=== PATIENT | female | born 1965 | race Caucasian/White ===

== ENCOUNTER 2018-12-12 04:22 | Emergency (ER) | payer MEDICARE, SELFPAY ==
[2018-12-12 04:23] VITALS: BP 97/68; PULSE 90; RESP 15; TEMP 37.2; O2SAT 94; BMI 26.5
--- NOTE | 2018-12-12 04:47 | ED.DCSUM_ITS ---
History of Present Illness Chief Complaint: Fever Informant: Patient Onset: Yesterday Context: Gradual Onset Timing: Continuous Current Severity: Moderate Maximum Severity: Moderate Narrative: The patient presents to the emergency department with fever. Patient has a history of renal cell carcinoma with diffuse metastasis. She follows with Dr. Koroma. She is on chemotherapy. Her last treatment was on Thursday. She states that yesterday evening, she began to have chills. She states shortly thereafter she developed a fever. She is on antibiotics for urinary tract infection. 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 She does self cath. She denies any recent change in the urine. She has not had cough. She just states that she is mostly had myalgias and arthralgias. Prior similar symptoms: Yes Recent Illness/Hospitalization: No Past Medical History - Allergies and Home Meds Allergies/Adverse Reactions: Allergies No Known Allergies Allergy (Verified 12/12/18 04:31) Primary Care Physician: Aaron Chand MD [Primary Care Provider] - Prior records reviewed: Yes Past Medical History: - - Renal cell carcinoma Smoking Status: Never smoker Review of Systems General: Reports: Chills, Fever, Malaise. Denies: Sweats Eyes: Denies: Visual changes - bilaterally, Diplopia ENT: Denies: Rhinorrhea, Sore throat Cardiovascular: Denies: Chest pain, Palpitations Respiratory: Denies: Dyspnea, Cough, Dyspnea on exertion Gastrointestinal: Denies: Abdominal pain, Nausea, Vomiting, Diarrhea, Melena, Hematochezia Genitourinary: Denies: Dysuria, Hematuria, Frequency Musculoskeletal: Reports: Myalgias, Arthralgias. Denies: Back pain, Extremity Pain Skin: Denies: Rash, Wounds Neurological: Denies: Headache, Weakness, Numbness Physical Exam Vital Signs/Narrative: Vital Signs Temp Pulse Resp BP Pulse Ox 12/12/18 04:23 99.0 F 90 15 97/68 94 Inital Vital Signs reviewed: Yes General: Well nourished, Well developed, No Acute Distress Head: Normocephalic, Atraumatic Eyes: Perrl, EOMI ENT: Moist mucous membranes, No rhinorrhea Neck: Supple, Nontender Cardiovascular: Regular rate, Regular rhythm, No murmurs Respiratory: No distress, CTA bilaterally, Chest nontender Abdomen: Soft, Nontender, Nondistended, Normal bowel sounds Back: Nontender, Normal Inspection Extremities: Nontender, No edema Skin: Normal color, No rash Neurological: Alert, Oriented x3, Cranial nerves II-XII grossly intact, Normal Strength, Normal Sensation Psychological: Normal affect, Normal Mood Diagnostic/Tx/Re-eval Chest X-Ray - ED: 1 View, Normal, Heart, Lungs, Mediastinum, Bony Structures, No Infiltrates Abnormal Lab Results 12/12/18 12/12/18 12/12/18 05:00 05:25 05:25 WBC 5.0 RBC 4.63 Hgb 12.3 Hct 39.6 MCV 85.5 MCH 26.6 L MCHC 31.1 L RDW Std Deviation 44.9 H RDW Coeff of Deborah 14.6 Plt Count 185 MPV 10.0 Immature Gran % (Auto) 0.600 Neut % (Auto) 82.8 H Lymph % (Auto) 9.0 L Curry % (Auto) 3.8 Eos % (Auto) 3.2 Baso % (Auto) 0.6 Absolute Neuts (auto) 4.1 Absolute Lymphs (auto) 0.45 L Nucleated RBC % 0 Sodium 137 Potassium 3.8 Chloride 101 Carbon Dioxide 26.0 Anion Gap 10 BUN 14 Creatinine 0.97 Estim Creat Clear Calc 58.97 Est GFR (MDRD) Af Amer 76 Est GFR (MDRD) Non-Af 63 BUN/Creatinine Ratio 14.4 Glucose 185 H Lactic Acid Calcium 8.8 Total Bilirubin 0.40 AST 23 ALT 24 Alkaline Phosphatase 89 Total Protein 6.7 Albumin 3.2 Globulin 3.5 Albumin/Globulin Ratio 0.9 Urine Color Yellow Urine Clarity Sl. Cloudy Urine pH 5.0 Ur Specific [place] 1.025 Urine Protein 30 H Urine Glucose (UA) Normal Urine Ketones 150 H Urine Occult Blood 25 H Urine Nitrite Positive H Urine Bilirubin Negative Urine Urobilinogen 1 H Ur Leukocyte Esterase 25 H Urine RBC 0 SEEN Urine WBC 0-5 SEEN Ur Squamous Epith Cells 0 SEEN Urine Bacteria 3+ Urine Mucus 1+ 12/12/18 05:25 WBC RBC Hgb Hct MCV MCH MCHC RDW Std Deviation RDW Coeff of Deborah Plt Count MPV Immature Gran % (Auto) Neut % (Auto) Lymph % (Auto) Curry % (Auto) Eos % (Auto) Baso % (Auto) Absolute Neuts (auto) Absolute Lymphs (auto) Nucleated RBC % Sodium Potassium Chloride Carbon Dioxide Anion Gap BUN Creatinine Estim Creat Clear Calc Est GFR (MDRD) Af Amer Est GFR (MDRD) Non-Af BUN/Creatinine Ratio Glucose Lactic Acid 1.2 Calcium Total Bilirubin AST ALT Alkaline Phosphatase Total Protein Albumin Globulin Albumin/Globulin Ratio Urine Color Urine Clarity Urine pH Ur Specific [place] Urine Protein Urine Glucose (UA) Urine Ketones Urine Occult Blood Urine Nitrite Urine Bilirubin Urine Urobilinogen Ur Leukocyte Esterase Urine RBC Urine WBC Ur Squamous Epith Cells Urine Bacteria Urine Mucus - Rhythm Strip Rhythm Strip: Sinus Rhythm Ectopy: None - Medical Decision Making The patient presents with fever and nausea. She is afebrile here, but did have reported fever at home. Metabolic work-up was pursued. Patient was given fluids. Screening labs showed no evidence of neutropenia. Lactic acid was normal. Electrolytes were unremarkable. Chest x-ray shows no evidence of focal infiltrative process. The patient's urine does seem to have evidence of infection. Is actually able to review her culture from [facility]. She did have ESBL that was sensitive to penicillin. She has been on Macrobid, but now that she has a fever and systemic symptoms I am concerned for early pyelonephritis. I had a long conversation with the patient. She wants to do outpatient therapy. As she is afebrile here and has a rather otherwise unremarkable work-up I do feel that this is reasonable. I did reculture her urine. She was given IV Zosyn. She will be started on Augmentin. She was counseled on concerning symptoms and reasons to return. She will be discharged home. Impression 1. Early pyelonephritis ED Disposition - Plan for ED Patient: Instructions: PYELONEPHRITIS, Female (Adult) Prescriptions: Amox/Clavulanate Tablet [Augmentin Tablet] 875 mg PO Q12H #20 tab Prescription Printed Referrals: Aaron Chand MD [Primary Care Provider] -
--- NOTE | 2018-12-12 05:00 | RAD_ITS ---
STUDY: X-RAY CHEST REASON FOR EXAM: Female, 53 years old. Fever. Indigestion. Fatigue. Patient received chemotherapy on Thursday. TECHNIQUE: Single AP portable view of the chest. COMPARISON: None. FINDINGS: There is a left subclavian Port-A-Cath with its tip overlying superior vena cava. There is elevation of the left hemidiaphragm with overlying left basilar atelectasis. There is minimal atelectasis in the right lower lung field as well. There are no demonstrated pulmonary infiltrates. There is no demonstrated pleural abnormality. Normal size heart. Normal mediastinum and john. Normal visualized pulmonary arteries. Normal visualized aortic arch and descending thoracic aorta. There are postsurgical changes in the thoracic spine. Normal visualized ribs, clavicles, and shoulders. There is no demonstrated abnormality of the visualized soft tissue structures of the upper abdomen. RAD/Chest 1 View (Portable) IMPRESSION: Atelectasis in the lower lung siddiqui. Port-A-Cath in position. No evidence for acute cardiopulmonary pathology. Electronically Signed: Yusuf Thomas MD at 5:35 EDT , Service support ,
[2018-12-12] MEDS: Ondansetron 4 MG/2 ML Vial IV (05:35)
[2018-12-12] MEDS: 0.9% Normal Saline 1,000 ML 1000 ML IV (05:36)
[2018-12-12 05:37] VITALS: BP 87/58; PULSE 69; RESP 15; O2SAT 96
[2018-12-12 06:06] LABS: Absolute Lymphocyte Count 0.45 X10^3/uL (0.83-4.51); Absolute Neutrophil Count 4.1 X10^3/uL (2.0-7.7); Basophil# 0.03 X10^3/uL; Basophil% 0.6 % (0-1); Differential Indicated SCAN CRITERIA MET; Eosinophil# 0.16 X10^3/uL; Eosinophils% 3.2 % (0-5); Hematocrit 39.6 % (37-47); Hemoglobin 12.3 g/dL (12.0-15.0); Lymphocyte # 0.45 X10^3/ul (4.0); Mean Corp Hgb Conc 31.1 g/dL (32-36); Mean Corpuscular Hgb 26.6 pg (27.0-32.0); Mean Corpuscular Volume 85.5 fL (81-99); Monocyte# 0.19 X10^3/uL; Monocyte% 3.8 % (0-10); NRBC Flagged by Analyzer 0 % (0-5); Neutrophil # 4.13 X10^3/uL (2.7-7.7); Neutrophil % 82.8 % (47-70); POSITIVE DIFFERENTIAL YES; Platelet Count 185 K/mm3 (150-450); RBC Distribution Width CV 14.6 % (11.6-14.6); RBC Distribution Width SD 44.9 fl (35.1-43.9); Red Blood Count 4.63 M/mm3 (4.2-5.4)
[2018-12-12 06:07] LABS: Color, Urine Yellow (Yellow); Glucose, Dipstick Normal (Normal); Leukocyte Esterase-Dipstick 25 /ul (Negative); Nitrite-Dipstick Positive (Negative); Occult Blood-Urine 25 /ul (Negative); Protein-Dipstick 30 mg/dl (Negative); Specific Gravity, Urine 1.025 (1.002-1.030); Urine Bilirubin Dipstick Negative (Negative); Urine Clarity Sl. Cloudy (Clear); Urine Urobilinogen 1 mg/dl (Normal)
[2018-12-12 06:10] LABS: Ketone-Dipstick 150 mg/dl (Negative)
[2018-12-12 06:13] LABS: Lactic Acid 1.2 mmol/L (0.4-2.0)
[2018-12-12 06:13] LABS: Red Blood Cells-Urine 0 SEEN /hpf (0-5); Squamous Epithelial Cells - UA 0 SEEN /hpf (5-10)
[2018-12-12 06:14] LABS: Bacteria 3+ /hpf (None Seen); Mucous, Urine 1+ /hpf (<or=2+)
[2018-12-12 06:17] LABS: White Blood Cells 0-5 SEEN /hpf (0-5)
[2018-12-12] MEDS: 0.9% Normal Saline 1,000 ML 999 ML IV (06:17)
[2018-12-12 06:18] VITALS: BP 88/52; PULSE 75; RESP 15; O2SAT 100
--- NOTE | 2018-12-12 06:28 | ED.RN ---
lab called with critical lab results. urine ketones 150. Dr. franco made aware no new orders at this time
[2018-12-12 06:37] LABS: ALB/GLOB Ratio 0.9 RATIO (0.9-2.4); AST(SGOT) 23 U/L (15-37); Alanine Aminotransfer ALT/SGPT 24 U/L (13-56); Albumin, Serum 3.2 g/dL (3.2-5.0); Alkaline Phosphatase 89 U/L (45-117); BUN 14 mg/dL (7-18); Calcium,Total 8.8 mg/dL (8.5-10.1); Creatinine, Serum 0.97 mg/dL (0.55-1.02); Estimated Creatinine Clearance 58.97 ml/min; Globulin 3.5 g/dL (2.2-4.2); Glucose 185 mg/dL (74-106); Protein, Total 6.7 g/dL (6.4-8.2); Sodium Level 137 mmol/L (136-145)
[2018-12-12 06:38] LABS: Anion Gap 10 (5-15); Chloride 101 mmol/L (98-107); Potassium 3.8 mmol/L (3.5-5.1)
[2018-12-12 08:13] VITALS: BP 140/90; PULSE 100; RESP 22; O2SAT 97
[2018-12-12 11:27] LABS: BUN/Creat Ratio 14.5 RATIO (10-20); EST Glomerular Filtration Rate 64 mL/min (>60); Est Glom Filt Rate - Afr Amer 77 mL/min (>60)
== END 2018-12-12 08:14 | disposition home or self-care (01) ==
PROVIDERS: Emergency Provider Emergency Medicine; Family Provider Family Medicine; PCP Family Medicine
DX: N12 Tubulo-interstitial nephritis, not specified as acute or chronic (principal); C64.9 Malignant neoplasm of unspecified kidney, except renal pelvis; C79.9 Secondary malignant neoplasm of unspecified site; Z79.2 Long term (current) use of antibiotics
CPT/HCPCS: 71045; 80053; 81001; 83605; 85025; 87040; 87077; 87086; 87088; 87186; 96361; 96365; 96375; 99284; J7030; J7040; A4216; J2405

== ENCOUNTER 2019-01-28 20:50 | Inpatient (IN) | payer MEDICARE, SELFPAY ==
[2019-01-28] VITALS (10 sets, daily range): BP systolic 56–111; BP diastolic 36–88; PULSE 74–131; RESP 14–24; TEMP 36.1–37.4; O2SAT 95–100; BMI 24.0
--- NOTE | 2019-01-28 21:13 | EKG12_ITS ---
Test Reason : DYSRHYTHMIA Blood Pressure : / mmHG Vent. Rate : 118 BPM Atrial Rate : 118 BPM P-R Int : 122 ms QRS Dur : 082 ms QT Int : 284 ms P-R-T Axes : 059 -51 071 degrees QTc Int : 398 ms Sinus tachycardia Left anterior fascicular block Septal infarct , age undetermined Abnormal ECG Confirmed by COLETTE ROWLAND, VALENTINA ([id number]), assignment editor YESI GONZALEZ ([id number]) on 01/31/2019 9:47:06 AM Referred By: Confirmed By:VALENTINA ALVARENGA MD
--- NOTE | 2019-01-28 21:15 | RAD_ITS ---
STUDY: X-RAY CHEST REASON FOR EXAM: Female, 53 years old. UTI. Short of breath. TECHNIQUE: Single AP portable view of the chest. COMPARISON: 12/12/2018. FINDINGS: Left Mediport catheter terminates near the cavoatrial junction. Elevated left hemidiaphragm, less so than on the prior study. Platelike atelectasis and/or scarring across both lower lobes worse on the left. These findings are mostly normal. Normal size heart. Normal mediastinum and john. Normal visualized pulmonary arteries. Normal visualized aortic arch and descending thoracic aorta. Stable post surgical fusion intrapedicular screws and rods across most of the thoracic spine. There is no demonstrated abnormality of the visualized soft tissue structures of the upper abdomen. RAD/Chest 1 View (Portable) IMPRESSION: Little if any significant change. Atelectasis or scarring in both lower lobes worse on the left. Electronically Signed: Bang Wyatt MD at 21:34 EST , Service support ,
--- NOTE | 2019-01-28 21:18 | ED.DCSUM_ITS ---
- ER Visit Summary Date of Service: 01/28/19 Chief Complaint: Fever, nausea History of Present Illness: The patient is a 53 F presenting with fever, nausea. She began not feeling well 4 days ago. She was seen by her primary care physician yesterday and diagnosed with UTI. She was given Diflucan for yeast infection as well as Augmentin. She has a history of renal cell carcinoma. She is paraplegic and straight caths for urine. Her last chemotherapy was yesterday. states her temperature was up to 104 at home. She was given ibuprofen and they were able to get her temperature down. She denies chest pain. She complains of shortness of breath, nausea, vomiting. Physical Examination: Blood pressure 63/40. Heart rate 131, respiratory rate 24. Patient is afebrile. Alert moderate acute distress. HEENT exam dry mucous membranes Neck is supple. No meningismus Lungs are clear and equal bilaterally. Heart is regular and tachycardic Abdomen is soft nontender nondistended. Extremities are unremarkable. Skin is warm and dry. No rash Remainder of exam is unremarkable. Emergency Department Course and Treatment: Patient was given IV fluids, Zofran. Blood and urine cultures were sent. EKG is sinus tachycardia rate of 118, ST elevation V2, no reciprocal changes. Chest x-ray shows atelectasis. CBC shows white count 14.7. Chemistries show potassium 3.0, glucose 135, BUN 26, creatinine 1.53. Alk phos 124. AST 150. INR 1.4. Lactic acid 4.2. Troponin 22.9. Influenza negative. Patient was given 30 cc/kg bolus of IV fluids. She continues to be hypotensive and Levophed was started. She was given Zosyn, vancomycin IV. Discussed with Dr. Bedolla. Recommends heparin drip, aspirin, CTA chest to rule out PE. Patient was started on heparin drip. She continues to be hypotensive. Discussed with Dr. Killian. Patient was started on vasopressin. She will be given Solu-Cortef. CTA chest shows positive for pulmonary emboli on the right descending pulmonary artery into the right middle lobe. Atelectasis and/or infiltrate in both lower lobes worse on the left. Blount catheter was placed and patient has not made any urine in the emergency department. IV fluids are continued. Discussed with Dr. Valiente. Discussed with the hospitalist for admission. is at bedside and is aware of her critical status. She is full code at this time. Patient is awake and alert and is responding appropriately to questions. She will be admitted to the ICU. Disposition: Admission Impression: Septic shock, pulmonary embolism, history of renal cell carcinoma This note was generated with [employer] dictation software. It may contain incorrect words, spelling, and punctuation that were not noted in review of the chart prior to signing ED Disposition - Plan for ED Patient:
[2019-01-28] MEDS: 0.9% Normal Saline 1,000 ML 999 ML IV ×3 (21:42→22:20)
[2019-01-28] MEDS: Ondansetron 4 MG/2 ML Vial IV (21:50)
[2019-01-28 21:52] LABS: Absolute Lymphocyte Count 0.24 X10^3/uL (0.83-4.51); Absolute Neutrophil Count 14.1 X10^3/uL (2.0-7.7); Basophil# 0.05 X10^3/uL; Basophil% 0.3 % (0-1); Eosinophil# 0.12 X10^3/uL; Eosinophils% 0.8 % (0-5); Hematocrit 45.4 % (37-47); Lymphocyte # 0.24 X10^3/ul (4.0); Lymphocyte % 1.6 % (19-41); Mean Corp Hgb Conc 30.8 g/dL (32-36); Mean Corpuscular Hgb 25.4 pg (27.0-32.0); Mean Corpuscular Volume 82.2 fL (81-99); Mean Platelet Vol. 10.3 fl (6.2-12.0); Monocyte# 0.05 X10^3/uL; Monocyte% 0.3 % (0-10); NRBC Flagged by Analyzer 0 % (0-5); Neutrophil # 14.11 X10^3/uL (2.7-7.7); Neutrophil % 96.4 % (47-70); POSITIVE DIFFERENTIAL YES; POSITIVE MORPHOLOGY YES; Platelet Count 170 K/mm3 (150-450); RBC Distribution Width CV 17.2 % (11.6-14.6); RBC Distribution Width SD 50.4 fl (35.1-43.9); Red Blood Count 5.52 M/mm3 (4.2-5.4); White Blood Count 14.7 K/mm3 (4.4-11.0)
[2019-01-28 22:03] LABS: Differential Indicated SCAN CRITERIA MET
[2019-01-28 22:05] LABS: International Normalized Ratio 1.4; Prothrombin Time (Protime)PT. 16.5 SECONDS (11.7-14.9)
[2019-01-28 22:06] LABS: Partial Thromboplast Time 44.7 Seconds (24.1-36.2)
[2019-01-28 22:15] LABS: ALB/GLOB Ratio 0.8 RATIO (0.9-2.4); AST(SGOT) 150 U/L (15-37); Alanine Aminotransfer ALT/SGPT 52 U/L (13-56); Albumin, Serum 2.7 g/dL (3.2-5.0); Alkaline Phosphatase 124 U/L (45-117); Anion Gap 13 (5-15); BUN 26 mg/dL (7-18); Calcium,Total 8.7 mg/dL (8.5-10.1); Chloride 107 mmol/L (98-107); Creatinine, Serum 1.53 mg/dL (0.55-1.02); EST Glomerular Filtration Rate 37 mL/min (>60); Est Glom Filt Rate - Afr Amer 45 mL/min (>60); Estimated Creatinine Clearance 38.89 ml/min; Globulin 3.4 g/dL (2.2-4.2); Glucose 135 mg/dL (74-106); Protein, Total 6.1 g/dL (6.4-8.2); Sodium Level 141 mmol/L (136-145)
[2019-01-28 22:19] LABS: Lactic Acid 4.2 mmol/L (0.4-2.0)
[2019-01-28 22:21] LABS: Differential Comment SCANNED
--- NOTE | 2019-01-28 22:36 | CT_ITS ---
STUDY: CTA CHEST REASON FOR EXAM: Female, 53 years old. Short of breath. Metastatic kidney cancer. RADIATION DOSAGE (If Supplied By Facility): CTDIvol = ( 12.86 ) mGy, DLP = ( 440.27 ) mGycm TECHNIQUE: The examination was performed with the intravenous administration of IV Isovue 370 75ml. Post-processing of the angiographic images was performed, with multiplanar reformation and 3D reconstruction. Individualized dose optimization techniques were used for this CT. COMPARISON: None. FINDINGS: Normal enhancement of the main pulmonary artery and right and left pulmonary arteries. Intraluminal thrombus is seen in the right descending pulmonary artery, images 108-124. Small thrombus seen in the arteries to the right middle lobe, axial image 104. No definite pulmonary emboli on the left. Normal thoracic aorta and visualized great vessels. There is no demonstrated aortic dissection. Normal heart and pericardium. No gross right heart strain. No shift of the mediastinum. Normal mediastinum. Normal hilar regions. Normal visualized trachea and bronchi. The lungs are hyper expanded, with flattening of the hemidiaphragms. Moderate elevation of left hemidiaphragm. Atelectasis or infiltrate in both posterior lower lobes worse on the left. Smaller amount of atelectasis or infiltrate in the lingula. Small effusions. Extensive postsurgical changes of the spine with numerous interpedicular screws and posterior rods. Complete destruction of the T9 vertebral body and 1.4 cm anterolisthesis of T8 on T10. Normal visualized upper abdomen. CT/CTA Chest W/WO Contrast IMPRESSION: Positive for pulmonary emboli on the right descending pulmonary artery into the right middle lobe. Atelectasis and/or infiltrate in both lower lobes worse on the left. N.B. : The above information has been verbally conveyed by Bang Wyatt MD to Dana Ratliff MD, on 01/28/2019 23:44:23 (ET). Electronically Signed: Bang Wyatt MD at 23:45 EST , Service support ,
--- NOTE | 2019-01-28 22:45 | PCM.HP.STD ---
Problem List (1) Septic shock Status: Acute (2) UTI (urinary tract infection) Status: Acute Qualifiers: Urinary tract infection type: site unspecified Hematuria presence: without hematuria Qualified Code(s): N39.0 - Urinary tract infection, site not specified (3) Pneumonia Status: Acute Qualifiers: Pneumonia type: due to unspecified organism Laterality: bilateral Lung location: unspecified part of lung Qualified Code(s): J18.9 - Pneumonia, unspecified organism (4) KELLEE (acute kidney injury) Status: Acute (5) Hypokalemia Status: Acute (6) Encephalopathy acute Status: Acute (7) Renal carcinoma Status: Chronic Qualifiers: Laterality: right Qualified Code(s): C64.1 - Malignant neoplasm of right kidney, except renal pelvis (8) Chronic pain syndrome Status: Chronic History of Present Illness Date of Admission: 01/28/19 Chief Complaint: Recent UTI, Dyspnea, Nausea The patient is a 53 y/o F w/ PMHx: Renal Cell Carcinoma ongoing chemotherapy last the day prior to current presentation, Chronic Neurogenic Bladder with self catheterization program with paraplegia following lesion into her spine, Chronic Pain Syndrome who presents to the [facility] ED on 01/28/19 with history of onset of fatigue, malaise, nausea with emesis with fevers and chills initially starting 4 days prior with PCP evaluation today prior to current presentation with diagnosis of UTI at that time with initiation of Diflucan and Augmentin with sudden extreme decline over the last 1-2 hours per spouse report, noted to be febrile to 104 which decreased with IBU and onset lethargy. Per discussion with spouse patient self catheterizes from 3-6 times per day and notes that she does feel bladder spasms when her bladder is full. Work-up in the ED included T 99.3, heart rate 77, BP initially 56/36 with repeat 70/53, respiratory rate 14, 99% on 2 L nasal cannula, CBC with W BC 14.7, heme globin 14, platelet 170 with notable left shift, coags with PT 16.5, INR 1.4, PTT 44.7, CMP with potassium 3, BUN/creatinine 26/1.53, glucose 135, lactic acid 4.2, AST/ALT 150/52, alk phos 124, troponin 22.9, rapid influenza pending, blood culture x2 pending per ED, chest x-ray with atelectasis and/or scarring bilateral lower lobes, left greater than right, EKG with ST w/ mild elevation V2. In the ED patient initiated on heparin drip with bolus, norepinephrine as well as vasopressin initiated, Zosyn, vancomycin as well as normal saline in addition to fentanyl administered. CTPA preliminary evaluation concerning for small BL PE and ? PNA versus scarring. Additionally given CTPA findings per review again with Cardiology, decision to attempt to administer Brillinta load given improving mental status in the ED. Past Medical History Past Medical History (Chronic Problems): Chronic Problems Renal carcinoma (Chronic) Chronic pain syndrome (Chronic) Allergies No Known Allergies Allergy (Verified 01/28/19 20:53) Home Medications: Ambulatory Orders Medication Instructions Recorded Amox/Clavulanate Tablet [Augmentin 875 mg PO Q12H #20 tab 12/12/18 Tablet] Baclofen [Lioresal] 5 mg PO TID 12/12/18 Furosemide [Lasix] 20 mg PO PRN PRN 12/12/18 Gabapentin [Neurontin] 600 mg PO Q8H 12/12/18 Ondansetron [Zofran] 8 mg PO Q8H PRN PRN 12/12/18 Oxycodone Myristate [Xtampza ER] 18 mg PO Q12H 12/12/18 Prednisone 5 mg PO DAILY 12/12/18 Temazepam [Restoril] 30 mg PO QHS 12/12/18 Tizanidine HCl [Zanaflex] 4 mg PO Q8H PRN 12/12/18 Surgical History: - - Neck surgery with hardware, lumbar surgery with hardware with corrective follow-up surgery, left lower extremity femur surgery with hardware placement secondary to cancerous lesions, cholecystectomy, tonsillectomy, port placement. Psychiatric History: No pertinent psych hx [employer]ERILE TECH History: No pertinent [employer]ERILE TECH history Lives: Spouse/ Significant Other - Patient lives with her , has caregivers coming in. Smoking Status: Never smoker Tobacco Use: Non-smoker Alcohol: None Drugs: None - *Family History Maternal History Items: - - Patient with maternal family history of lung cancer, tobacco use history. Paternal History Items: - - Patient with a paternal family history of lung cancer, tobacco use history concurrently. Review of Systems Constitutional: Reports: Anorexia, Chills, Fever, Malaise, Weakness, Fatigue. Denies: Weight Change HEENT: Denies: Head Aches, Sinus Congestion, Sinus Drainage Cardiovascular: Denies: Chest Pain, Palpitations Respiratory: Reports: Shortness of Breath. Denies: Cough, Shortness of breath at rest, Shortness of breath upon exertion, Sputum production, Wheezing Gastrointestinal: Reports: Abdominal Pain, Nausea, Vomiting Genitourinary: Reports: - - Genic bladder, required self-catheterization, decreased urine output and bladder spasms noted.. Denies: Dysuria Musculoskeletal: Reports: Back Pain, Joint Pain. Denies: Joint Tenderness Skin: Denies: Rash, Wounds Neurological: Reports: Confusion, Focal weakness, Numbness, Tingling Psychiatric: Denies: Anxiety, Depression, Homicidal Ideations, Suicidal Ideations Hematologic/ Lymphatic: Denies: Easy Bruising, Easy Bleeding VTE Information - Inpt Only VTE Present on Admission: No VTE Mechan Device Prophylaxis: SCD's VTE Pharm Prophylaxis ordered?: Yes Patient Problems: Active and Suspected Problems Septic shock (Acute) UTI (urinary tract infection) (Acute) Pneumonia (Acute) KELLEE (acute kidney injury) (Acute) Hypokalemia (Acute) Encephalopathy acute (Acute) Subjective: Laying in the ED bed, very fatigued and lethargic but awakening easier now, answering some orientation questions appropriately, ill-appearing. Objective: Physical Examination: General: Now awakening to stimuli, increasingly more alert, now oriented to self, place and year but slow to answer, remains cooperative, laying in the ED bed, ill appearing. Skin: normal color, turgor, no icterus, cyanosis. HEENT: AT/NC, EOMI, PERRLA, dry MM, no carotid bruits or JVD noted. Lungs: Diminished BS BL, > bases, no obvious rales, ronchi or wheezing. Heart: Tachycardic with regular rhythm; no gallop, rub audible. Abdomen: soft, NTTP, ND, hypoactive BS, no HSM. Extremities: no cyanosis, clubbing, or edema, chronic paraplegia, peripheral pulses intact. Neurological: Now awakening to stimuli, increasingly more alert, now oriented to self, place and year but slow to answer, remains cooperative; cognitive function not baseline intact; pupils equally reactive to light and accomodation; cranial nerves II-XII grossly normal although give acute presentation difficult examination with lethargy, chronic paraplegia, strength severely globally decreased given underlying co-morbidities and acute presentation. Psychiatric: affect appears flat, lethargic, ill, no acute evidence of depressive or anxiety feelings. - Physical Exam Vitals/I&O's: Vital Signs Temp Pulse Resp BP Pulse Ox 99.3 F H 77 14 65/45 L 99 01/28/19 22:09 01/28/19 22:37 01/28/19 22:37 01/28/19 22:37 01/28/19 22:37 Oxygen Flow Rate (L/min) 2 Oxygen Delivery Method Nasal Cannula Weight: 149 lb Body Mass Index (BMI) 24.0 Intake and Output for Last 24 Hours 01/26/19 01/27/19 01/28/19 23:59 23:59 23:59 Intake Total 2503.84 / 2503.84 Balance 2503.84 / 2503.84 Laboratory Results 01/28/19 21:35: WBC 14.7 H, RBC 5.52 H, Hgb 14.0, Hct 45.4, MCV 82.2, MCH 25.4 L, MCHC 30.8 L, RDW Std Deviation 50.4 H, RDW Coeff of Deborah 17.2 H, Plt Count 170, MPV 10.3, Immature Gran % (Auto) 0.600, Neut % (Auto) 96.4 H, Lymph % (Auto) 1.6 L, Banks % (Auto) 0.3, Eos % (Auto) 0.8, Baso % (Auto) 0.3, Absolute Neuts (auto) 14.1 H, Absolute Lymphs (auto) 0.24 L, Nucleated RBC % 0, Differential Comment SCANNED 01/28/19 21:35: PT 16.5 H, INR 1.4, APTT 44.7 H 01/28/19 21:35: Sodium 141, Potassium 3.0 L, Chloride 107, Carbon Dioxide 21.0, Anion Gap 13, BUN 26 H, Creatinine 1.53 H, Estim Creat Clear Calc 38.89, Est GFR (MDRD) Af Amer 45 L, Est GFR (MDRD) Non-Af 37 L, BUN/Creatinine Ratio 17.0, Glucose 135 H, Calcium 8.7, Total Bilirubin 0.70, AST 150 H, ALT 52, Alkaline Phosphatase 124 H, Troponin I 22.900 H*, Total Protein 6.1 L, Albumin 2.7 L, Globulin 3.4, Albumin/Globulin Ratio 0.8 L 01/28/19 21:35: Lactic Acid 4.2 H* Current Medications Heparin Sodium (Porcine) (Heparin Na) 4,500 unit IV BOLUS ONE Stop: 01/28/19 22:46 Heparin Sodium (Porcine) (Heparin Na) 0 unit IV UD PRN; Protocol Sodium Chloride () 1,000 mls @ 999 mls/hr IV .Q1H1M ERNESTO; Protocol Stop: 01/28/19 23:45 Last Infusion: 01/28/19 22:30 Dose: Infused Documented by: Norepinephrine Bitartrate 8 mg (/ Sodium Chloride) 250 mls @ 9.375 mls/hr CONT INF .[id number] [facility]; Protocol Last Titration: 01/28/19 22:37 Dose: 10 mcg/min, 18.8 mls/hr Documented by: Heparin Sodium/Dextrose () 25,000 units in 250 mls @ 10 mls/hr IV .Q25H ERNESTO; Protocol Assessment/Plan All Active Problems Septic shock (Acute) UTI (urinary tract infection) (Acute) Pneumonia (Acute) KELLEE (acute kidney injury) (Acute) Hypokalemia (Acute) Encephalopathy acute (Acute) The patient is a 53 y/o F w/ PMHx: Renal Cell Carcinoma ongoing chemotherapy last the day prior to current presentation, Chronic Neurogenic Bladder with self catheterization program with paraplegia following lesion into her spine, Chronic Pain Syndrome who presents to the [facility] ED on 01/28/19 with history of onset of fatigue, malaise, nausea with emesis with fevers and chills initially starting 4 days prior with PCP evaluation today prior to current presentation with diagnosis of UTI at that time with initiation of Diflucan and Augmentin with sudden extreme decline over the last 1-2 hours per spouse report. 1. Acute Septic Shock secondary to Presumed Acute Complicated UTI (Unable to obtain urine, oliguric in the ED) with Neurogenic bladder and routine self catheterization and concurrent Possible BL Pneumonia versus Scarring: Evidence of sepsis-induced organ dysfunction/tissue hypoperfusion and sepsis induced hypotension despite adequate fluid administration as evidenced by elevated WBC, LA, hypotensive despite appropriate IVF administration. Will admit patient to the ICU, maintain on cardiac monitoring, continue to maintain on cardiac monitoring, continue BSA with vanc and zosyn, continue pressor therapies including now norepinephrine and vasopressin, initiate stress dose Cortef 50 mg IV every 6, continue IVFs, maintain richardson catheter, trend LA, awaiting UA/UCx upon requested evaluation of patient, will obtain sputum culture, urine antigens and respiratory viral panel given preliminary review of CTPA with concern for also concurrent bilateral pneumonia, Bld Cx x 2 obtained per ED upon presentation. Will plan re-assessment of patient and volume status as well as tissue perfusion within 6 hours of initial severe sepsis and/or septic shock presentation. ICU physician consulted, pending. Record request to primary care office for recent urinalysis and urine culture given currently patient not making urine and have not been able to obtain sample upon admission. 2. Acute NSTEMI (strain) secondary to Suspected Acute Pulmonary Embolism: CTPA performed and preliminary review with concern for pulmonary embolism as well as bilateral pneumonia but final read per radiology pending, EKG in ED w/ sinus tachycardia with elevations in V2, CXR w/ no acute cardiopulmonary findings, scarring noted at bases. Trop elevated, 22.9. Will maintain on a monitored bed, continue serial cardiac enzymes and EKGs. Continue medical management w/ LA aspirin, hold on statin oral regimen given lethargic presentation, obtain FLP in a.m., magnesium pending, ECHO requested. Cardiology consulted, Dr. Bedolla and aware of admission with planned continuation of heparin drip with prelim CTPA results with small bilateral PEs but no obvious evidence of strain although echo is pending as noted therefore plan to load of Brilinta in the ED given mental status is improving. ASA, NG, morphine. 3. Acute kidney injury: Secondary to acute presentation #1, #2. Admission BUN/Cr 26/1.53, prior baseline creatinine noted to be 0.9. Will hydrate, hold nephrotoxic medications and repeat chemistry in AM. Will obtain renal US and FeNa assessment. 4. Encephalopathy, acute, infectious, metabolic: Secondary to acute presentation as noted #1, #2, #3, continue treatments as noted, improving even while in the emergency room, fall and aspiration precautions. Will maintain n.p.o. status and administer medications LA as needed but as continues to clinically improve will transition to oral as able. 5. Hypokalemia: Admission K+ 2.0, supplementation given, repeat level in AM, magnesium pending. 6. Renal Cell Carcinoma, metastatic including to spine with resulting neurogenic bladder and paraplegia: Patient ongoing chemotherapy, last the day prior to current presentation, mag and phos requested, Dr. Valiente aware of admission and will evaluation. Maintain on fall precautions, frequent offloading with positional changes, maintain Richardson catheter, PT/OT/ST evaluations, case management concurrently consulted. Given notable lethargy upon presentation temporarily holding baclofen, Neurontin, long-acting oxycodone as well as Zanaflex, may resume once clinically appropriate to avoid withdrawal. 7. Chronic pain syndrome: Patient hypotensive is noted requiring pressor therapy x2, lethargic, holding oral regimen, may resume once clinically appropriate to avoid withdrawal. Will have PRN IV fentanyl. 8. DVT prophylaxis: SCDs, heparin drip as noted. 9. CODE status: Given that patient is lethargic and fatigued discussed with her current situation. Patient does not have healthcare power of collections attorney nor living will set up. Discussed CODE status at length with including difference between FULL code, DNR-CCA and DNR-CC status. Following discussions about the differences in these status, requested attenuation of full code status. Did impress upon patient severity of situation giving patient septic shock status requiring 2 pressor therapies, awaiting CTPA as noted above. Recommended that remain in the hospital given patient status tenuous. Advanced Care Planning Face to Face Time: 16 minutes. Code Visit Inpatient E&M: 32129 Init Hosp L3 Procedures: 72342 Advncd Care Plan 30 Min
[2019-01-28] MEDS: HEPARIN/D5w 25,000 UNITS 25,000 UNITS/250 ML IV.SOLN. 10 UNITS IV (22:49)
[2019-01-28] MEDS: Heparin Injection (Vial) 5,000 UNIT/ML VIAL 4500 UNIT IV (22:49)
[2019-01-28] MEDS: Vancomycin IV 1,000 MG/200 ML BAG 200 MG IV (23:48)
[2019-01-29] VITALS (50 sets, daily range): BP systolic 61–115; BP diastolic 50–86; PULSE 59–90; RESP 14–21; TEMP 36.7–37.2; O2SAT 93–100; BMI 25.2; BMI 25.3
[2019-01-29] MEDS: TICAGRELOR 90 MG TABLET 180 MG PO (00:14)
[2019-01-29] MEDS: Aspirin 325 MG Tablet PO (00:14)
--- NOTE | 2019-01-29 00:52 | ECHOCS_ITS ---
Reason For Study: CAD/ASHD Procedure This was a 2D Doppler, Color Flow transthoracic echocardiogram. Myocardial strain analysis was performed in this exam to aid in the assessment of cardiac function. Contrast injection was performed. Exam performed portable in ICU/CCU. Left Ventricle Normal LV size. The estimated ejection fraction is 15 %. Severe segmental systolic dysfunction (see wall motion). Stage 1 diastolic dysfunction. Becker : Akinetic. Mid-Lateral : Hypokinetic. Posterior- Basal: Normal. Lateral-Basal: Normal. Infero-Basal: Normal. The rest of the wall segments are hypokinetic. Atria Normal left atrium. Normal right atrium. Mitral Valve Normal mitral valve. Tricuspid Valve Normal tricuspid valve. Mild (1+) tricuspid valve insufficiency. Pulmonary artery systolic pressure is 32 mmHg. Aortic Valve Normal aortic valve. Trisinus/trileaflet aortic valve. Pulmonic Valve Normal pulmonic valve. Great Vessels Normal aortic root. The pulmonary artery is normal size. Normal inferior vena cava. Pericardium/Pleural No pericardial effusion. Medication Diluted definity 3ml given slow IV push to enhance endocardial definition. MMode/2D Measurements & Calculations LVIDd: 3.8 cm IVSd: 1.2 cm Ao root diam: 2.5 cm LVIDs: 3.3 cm LVPWd: 0.93 cm RVDd: 3.4 cm FS: 14.9 % LAV(MOD-bp): 24.1 ml LVAd ap4: 29.2 cm2 SV(MOD-sp4): 24.3 ml LAV(MOD-bp) Indexed: 13.7 ml/m2 EDV(MOD-sp4): 93.2 ml LAV(MOD-sp2): 22.4 ml EDV(sp4-el): 97.7 ml LAV(MOD-sp4): 23.9 ml LVAs ap4: 23.8 cm2 ESV(MOD-sp4): 68.9 ml ESV(sp4-el): 70.9 ml EF(MOD-sp4): 26.0 % EF(sp4-el): 27.4 % SV(sp4-el): 26.8 ml LA A4 area: 12.1 cm2 LA dimension(2D): 2.2 cm RA A4 area: 9.6 cm2 Doppler Measurements & Calculations MV E max alek: 28.3 cm/sec Lat Peak E' Alek: 3.6 cm/sec Med Peak E' Alek: 3.5 cm/sec MV A max alek: 64.2 cm/sec E/E' lat: 7.8 E/E' med: 8.0 MV E/A: 0.44 Ao V2 max: 90.2 cm/sec LV V1 max: 73.6 cm/sec PA V2 max: 49.2 cm/sec Ao max P.3 mmHg LV V1 max P.2 mmHg Ao V2 mean: 69.3 cm/sec Ao mean P.1 mmHg Ao V2 VTI: 16.1 cm TR max alek: 262.5 cm/sec TR max P.6 mmHg Interpretation Summary Normal LV size. The estimated ejection fraction is 15 %. Severe segmental systolic dysfunction (see wall motion). Stage 1 diastolic dysfunction. The global longitudinal strain = -8.4% (abnormal). Contrast injection was performed. Ordering Physician: Marily Cagle Referring Physician: Aaron Chand Performed By: Monika Bartlett, ARI, RVT
--- NOTE | 2019-01-29 00:52 | US_ITS ---
STUDY: RENAL ULTRASOUND - COMPLETE REASON FOR EXAM: Female, 53 years old. History of renal cancer. TECHNIQUE: Ultrasound evaluation of the kidneys was performed with real-time and static palma-scale imaging. COMPARISON: None. FINDINGS: RIGHT KIDNEY: LEFT KIDNEY: Normal location of the left kidney, which is normal in size. The left kidney measures 11.5 x 4.8 x 6.1 cm. There is a normal cortex of the left kidney. The renal cortex measures 1.7 cm. There is no left renal mass or cyst. There are no left renal calculi. There is no left hydronephrosis. DISTAL LEFT URETER: There is non-visualization of the distal left ureter. There is no demonstrated left ureterovesical junction calculus. There is no demonstrated left ureteral jet. BLADDER: There is a Blount catheter emptying the bladder. Incidental note of right pleural effusion. US/Kidney and Bladder IMPRESSION: Surgically absent right kidney. Normal appearance of the left kidney. Electronically Signed: Bang Wyatt MD at 16:16 EST , Service support ,
[2019-01-29 01:31] LABS: Magnesium 1.6 mg/dL (1.6-2.6); Phosphorus 3.3 mg/dL (2.5-4.9)
--- NOTE | 2019-01-29 01:45 | PCM.RX.CS ---
Consult Pharmacy has been consulted to manage selected antiobiotic: Vancomycin Type of Consult: New start Suspected Infection: Sepsis Labs: Sodium 141 mmol/L (136-145) 01/28/19 21:35 Potassium 3.0 mmol/L (3.5-5.1) L 01/28/19 21:35 Chloride 107 mmol/L (98-107) 01/28/19 21:35 Carbon Dioxide 21.0 mmol/L (21.0-32.0) 01/28/19 21:35 Anion Gap 13 (5-15) 01/28/19 21:35 BUN 26 mg/dL (7-18) H 01/28/19 21:35 Creatinine 1.53 mg/dL (0.55-1.02) H 01/28/19 21:35 Est GFR (MDRD) Af Amer 45 mL/min (>60) L 01/28/19 21:35 Est GFR (MDRD) Non-Af 37 mL/min (>60) L 01/28/19 21:35 BUN/Creatinine Ratio 17.0 RATIO (10-20) 01/28/19 21:35 Glucose 135 mg/dL (74-106) H 01/28/19 21:35 Microbiology: Microbiology 01/28/19 21:32 Mucosa - Throat Influenza Types A,B Direct FA (DANNY) - Final Weight used for dosin kg Estimated Creatinine Clearance: 38.89 Goal Trough: 15-20 mcg/mL Pharmacy Plan for Drug Dosing: Pharmacy Service will continue to monitor and adjust dosing as required. Medications Vancomycin HCl (Vancomycin) 1,000 mg in 200 mls @ 200 mls/hr IV Q24H ERNESTO Discontinued Medications Vancomycin HCl (Vancomycin) 1,000 mg in 200 mls @ 200 mls/hr IV X1 ONE Stop: 01/28/19 23:49 Last Admin: 01/29/19 01:36 Dose: Infused Documented by: Follow-Up Labs: Trough Vancomycin Labs to be done on [date and time ordered]: 01/30 @ 5922
[2019-01-29 01:48] LABS: Reflex Lactate? Y
[2019-01-29] MEDS: 0.9% Normal Saline 1,000 ML 150 ML IV (01:53)
[2019-01-29] MEDS: Hydrocortisone Sod Succinate 100 MG/2 ML Vial 50 MG IV ×4 (02:17→18:35)
[2019-01-29 02:47] LABS: Lactic Acid 2.7 mmol/L (0.4-2.0)
[2019-01-29 03:48] LABS: Absolute Lymphocyte Count 0.27 X10^3/uL (0.83-4.51); Basophil# 0.02 X10^3/uL; Basophil% 0.2 % (0-1); Eosinophil# 0.05 X10^3/uL; Eosinophils% 0.4 % (0-5); Hematocrit 41.6 % (37-47); Hemoglobin 12.5 g/dL (12.0-15.0); Lymphocyte # 0.27 X10^3/ul (4.0); Lymphocyte % 2.2 % (19-41); Mean Corpuscular Hgb 24.7 pg (27.0-32.0); Mean Corpuscular Volume 82.2 fL (81-99); Mean Platelet Vol. 9.9 fl (6.2-12.0); Monocyte# 0.05 X10^3/uL; Monocyte% 0.4 % (0-10); NRBC Flagged by Analyzer 0 % (0-5); Neutrophil # 11.95 X10^3/uL (2.7-7.7); Neutrophil % 96.2 % (47-70); POSITIVE DIFFERENTIAL YES; Platelet Count 151 K/mm3 (150-450); RBC Distribution Width CV 17.2 % (11.6-14.6); RBC Distribution Width SD 50.4 fl (35.1-43.9); Red Blood Count 5.06 M/mm3 (4.2-5.4); White Blood Count 12.4 K/mm3 (4.4-11.0)
[2019-01-29 04:05] LABS: Partial Thromboplast Time 119.2 Seconds (24.1-36.2)
[2019-01-29 04:06] LABS: ALB/GLOB Ratio 0.7 RATIO (0.9-2.4); AST(SGOT) 197 U/L (15-37); Alanine Aminotransfer ALT/SGPT 68 U/L (13-56); Albumin, Serum 2.1 g/dL (3.2-5.0); Alkaline Phosphatase 116 U/L (45-117); Anion Gap 10 (5-15); BUN 25 mg/dL (7-18); Calcium,Total 7.5 mg/dL (8.5-10.1); Chloride 109 mmol/L (98-107); Cholesterol 147 mg/dL (200); Creatinine, Serum 1.39 mg/dL (0.55-1.02); EST Glomerular Filtration Rate 42 mL/min (>60); Est Glom Filt Rate - Afr Amer 51 mL/min (>60); Estimated Creatinine Clearance 42.81 ml/min; Glucose 185 mg/dL (74-106); High Density Lipoprotein 58 mg/dL; Potassium 4.2 mmol/L (3.5-5.1); Protein, Total 5.1 g/dL (6.4-8.2); Sodium Level 140 mmol/L (136-145); Triglycerides 143 mg/dL; Very Low Density Lipoprotein 29 mg/dL (5-40)
[2019-01-29 04:08] LABS: Differential Indicated SCAN CRITERIA MET
[2019-01-29] MEDS: Ondansetron 4 MG/2 ML Vial IV ×2 (04:08→12:07)
[2019-01-29] MEDS: 0.9% Saline Lock 10 ML Syringe IV (04:08)
[2019-01-29 04:29] LABS: Urine Sodium 25 mmol/L (Not Establ.)
--- NOTE | 2019-01-29 06:20 | CON.PCM_ITS ---
Reason for Consult Date of Consultation: 01/29/19 Reason for Consultation: Septic shock History of Present Illness: The patient is a 53-year-old female, with a history as outlined below, who presented to the emergency department on January 28 with complaints of shaking fevers, chills and lethargy. The patient has a complex medical history including renal cell carcinoma, for which she receives chemotherapy under the direction of Dr. Valiente at [facility], chronic neurogenic bladder requiring self-ca theterization, paraplegia and chronic pain syndrome. The patient reports that she was evaluated by her primary care provider following her last round of chemotherapy this past . There was concern that she had an underlying urinary tract infection. Therefore, she was subsequently started on p.o. antibiotics. The patient does report a history of recurrent urinary tract infections in the past. In December 2018, her urine culture was positive for Pseudomonas, which was largely pansensitive. Unfortunately, the patient's symptoms continue to worsen, despite being on the p.o. antibiotic course started by her PCP. The patient currently denies the presence of abdominal pain, but states that she has little pain perception over that aspect of her body. She does report the presence of chest heaviness, mild shortness of breath and intermittent nausea over the course of the night. On presentation to the emergency department, the patient was noted to be febrile, tachycardic, tachypneic and hypotensive. Laboratory evaluation revealed an elevated white blood cell count of 15,000. Chemistry profile was notable for a potassium of 3.0 along with acute kidney injury with a creatinine of 1.53. Initial lactate was elevated to 4.2. AST was increased to 150 with an alkaline phosphatase of 124. Initial troponin was elevated to 22.9. Due to the patient's presentation, a CTA chest was obtained, which did reveal right-sided pulmonary emboli along with potential bibasilar infiltrates. The patient was volume resuscitated in the emergency department, but remained hypotensive. She did require initiation of vasopressor support, along with stress dose steroids. The patient received broad-spectrum antimicrobials and was subsequently transferred to the medical intensive care unit for further management. Past Medical History Past Medical History (Chronic Problems): Chronic Problems Renal carcinoma (Chronic) Chronic pain syndrome (Chronic) Allergies No Known Allergies Allergy (Verified 01/28/19 20:53) Home Medications: Ambulatory Orders Medication Instructions Recorded Amox/Clavulanate Tablet [Augmentin 875 mg PO Q12H #20 tab 12/12/18 Tablet] Baclofen [Lioresal] 5 mg PO TID 12/12/18 Furosemide [Lasix] 20 mg PO PRN PRN 12/12/18 Gabapentin [Neurontin] 600 mg PO Q8H 12/12/18 Ondansetron [Zofran] 8 mg PO Q8H PRN PRN 12/12/18 Oxycodone Myristate [Xtampza ER] 18 mg PO Q12H 12/12/18 Prednisone 5 mg PO DAILY 12/12/18 Temazepam [Restoril] 30 mg PO QHS 12/12/18 Tizanidine HCl [Zanaflex] 4 mg PO Q8H PRN 12/12/18 Surgical History: - - Neck surgery with hardware, lumbar surgery with hardware with corrective follow-up surgery, left lower extremity femur surgery with hardware placement secondary to cancerous lesions, cholecystectomy, tonsillectomy, port placement. 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 Smoking Status: Never smoker Tobacco Use: Non-smoker Alcohol: None Drugs: None - *Family History Maternal History Items: - - Patient with maternal family history of lung cancer, tobacco use history. Paternal History Items: - - Patient with a paternal family history of lung cancer, tobacco use history concurrently. Review of Systems Constitutional: Reports: Chills, Fever, Malaise, Weakness, Fatigue Eyes: Denies: Blurred vision, Double vision HEENT: Denies: Head Aches, Sinus Congestion, Sinus Drainage Cardiovascular: Reports: Chest Pressure, Heaviness Respiratory: Reports: Shortness of Breath. Denies: Cough Gastrointestinal: Reports: Nausea. Denies: Abdominal Pain, Vomiting Genitourinary: Denies: Dysuria Musculoskeletal: Reports: Back Pain Skin: Denies: Rash, Wounds Neurological: Denies: Numbness, Tingling, Focal weakness Psychiatric: Denies: Anxiety, Depression, Homicidal Ideations, Suicidal Smita ations Hematologic/ Lymphatic: Denies: Easy Bruising, Easy Bleeding Patient Problems: Active and Suspected Problems Septic shock (Acute) UTI (urinary tract infection) (Acute) Pneumonia (Acute) KELLEE (acute kidney injury) (Acute) Hypokalemia (Acute) Encephalopathy acute (Acute) Objective: The patient's most recent lab work, culture data and imaging studies have all been personally reviewed. CTA chest revealed right-sided pulmonary emboli, along with bibasilar infiltrates, left greater than right. Strep and urine Leg ionella antigens were negative. Rapid influenza screen was negative. Respiratory viral panel is pending. Blood cultures are pending. - Physical Exam Vitals/I&O's: Vital Signs Temp Pulse Resp BP Pulse Ox 98.5 F 71 17 103/82 H 97 01/29/19 06:00 01/29/19 06:00 01/29/19 06:00 01/29/19 06:00 01/29/19 06:00 Oxygen Flow Rate (L/min) 2 Oxygen Delivery Method Room Air Weight: 156 lb 8.451 oz Body Mass Index (BMI) 25.2 Intake and Output for Last 24 Hours 01/27/19 01/28/19 01/29/19 23:59 23:59 23:59 Intake Total 2595.10 / 2595.10 1261.28 / 1261.28 Balance 2595.10 / 2595.10 1261.28 / 1261.28 General: Alert, Cooperative, - - Acutely ill and fatigued in appearance. HEENT: Atraumatic, PERRLA, Normocephalic Oral: Dry Mucosa Neck: Supple, No Nodes, Trachea Midline, - Lungs: No rhonchi, No wheeze, No rales, Diminished Cardiovascular: Regular rate, Regular Rhythm, Normal S1, Normal S2 Abdomen: Bowel Sounds Present, Soft, Non Tender Extremities: No clubbing, No cyanosis, No edema Skin: No breakdown Musculoskeletal: No Tenderness to Palpation of Joints or Extremities Lymphatic: No Cervical, Supraclavicular, or Inguinal Adenopathy Neurological: Neuro grossly intact, - - Baseline paraplegia Psych/Mental Status: Flat Affect Labs (Last 48 Hours) 01/28/19 01/28/19 01/28/19 21:35 21:35 21:35 WBC 14.7 H RBC 5.52 H Hgb 14.0 Hct 45.4 MCV 82.2 MCH 25.4 L MCHC 30.8 L RDW Std Deviation 50.4 H RDW Coeff of Deborah 17.2 H Plt Count 170 MPV 10.3 Immature Gran % (Auto) 0.600 Neut % (Auto) 96.4 H Lymph % (Auto) 1.6 L [place] % (Auto) 0.3 Eos % (Auto) 0.8 Baso % (Auto) 0.3 Absolute Neuts (auto) 14.1 H Absolute Lymphs (auto) 0.24 L Nucleated RBC % 0 Differential Comment SCANNED PT 16.5 H INR 1.4 APTT 44.7 H Sodium 141 Potassium 3.0 L Chloride 107 Carbon Dioxide 21.0 Anion Gap 13 BUN 26 H Creatinine 1.53 H Estim Creat Clear Calc 38.89 Est GFR (MDRD) Af Amer 45 L Est GFR (MDRD) Non-Af 37 L BUN/Creatinine Ratio 17.0 Glucose 135 H Lactic Acid Calcium 8.7 Phosphorus Magnesium Total Bilirubin 0.70 AST 150 H ALT 52 Alkaline Phosphatase 124 H Troponin I 22.900 H* Total Protein 6.1 L Albumin 2.7 L Globulin 3.4 Albumin/Globulin Ratio 0.8 L Triglycerides Cholesterol LDL Cholesterol VLDL Cholesterol HDL Cholesterol Ur Random Sodium Urine Creatinine 01/28/19 01/29/19 01/29/19 21:35 00:12 00:12 WBC RBC Hgb Hct MCV MCH MCHC RDW Std Deviation RDW Coeff of Deborah Plt Count MPV Immature Gran % (Auto) Neut % (Auto) Lymph % (Auto) [place] % (Auto) Eos % (Auto) Baso % (Auto) Absolute Neuts (auto) Absolute Lymphs (auto) Nucleated RBC % Differential Comment PT INR APTT Sodium Potassium Chloride Carbon Dioxide Anion Gap BUN Creatinine Estim Creat Clear Calc Est GFR (MDRD) Af Amer Est GFR (MDRD) Non-Af BUN/Creatinine Ratio Glucose Lactic Acid 4.2 H* Calcium Phosphorus 3.3 Magnesium 1.6 Total Bilirubin AST ALT Alkaline Phosphatase Troponin I 20.300 H* Total Protein Albumin Globulin Albumin/Globulin Ratio Triglycerides Cholesterol LDL Cholesterol VLDL Cholesterol HDL Cholesterol Ur Random Sodium Urine Creatinine 01/29/19 01/29/19 01/29/19 02:03 03:35 03:35 WBC 12.4 H RBC 5.06 Hgb 12.5 Hct 41.6 MCV 82.2 MCH 24.7 L MCHC 30.0 L RDW Std Deviation 50.4 H RDW Coeff of Deborah 17.2 H Plt Count 151 MPV 9.9 Immature Gran % (Auto) 0.600 Neut % (Auto) 96.2 H Lymph % (Auto) 2.2 L [place] % (Auto) 0.4 Eos % (Auto) 0.4 Baso % (Auto) 0.2 Absolute Neuts (auto) 12.0 H Absolute Lymphs (auto) 0.27 L Nucleated RBC % 0 Differential Comment PT INR APTT Sodium 140 Potassium 4.2 Chloride 109 H Carbon Dioxide 21.0 Anion Gap 10 BUN 25 H Creatinine 1.39 H Estim Creat Clear Calc 42.81 Est GFR (MDRD) Af Amer 51 L Est GFR (MDRD) Non-Af 42 L BUN/Creatinine Ratio 18.0 Glucose 185 H Lactic Acid 2.7 H Calcium 7.5 L Phosphorus Magnesium Total Bilirubin 0.80 AST 197 H ALT 68 H Alkaline Phosphatase 116 Troponin I Total Protein 5.1 L Albumin 2.1 L Globulin 3.0 Albumin/Globulin Ratio 0.7 L Triglycerides 143 Cholesterol 147 LDL Cholesterol 60 VLDL Cholesterol 29 HDL Cholesterol 58 Ur Random Sodium Urine Creatinine 01/29/19 01/29/19 01/29/19 03:35 03:35 04:05 WBC RBC Hgb Hct MCV MCH MCHC RDW Std Deviation RDW Coeff of Deborah Plt Count MPV Immature Gran % (Auto) Neut % (Auto) Lymph % (Auto) [place] % (Auto) Eos % (Auto) Baso % (Auto) Absolute Neuts (auto) Absolute Lymphs (auto) Nucleated RBC % Differential Comment PT INR APTT 119.2 H* Sodium Potassium Chloride Carbon Dioxide Anion Gap BUN Creatinine Estim Creat Clear Calc Est GFR (MDRD) Af Amer Est GFR (MDRD) Non-Af BUN/Creatinine Ratio Glucose Lactic Acid Calcium Phosphorus Magnesium Total Bilirubin AST ALT Alkaline Phosphatase Troponin I 12.900 H* Total Protein Albumin Globulin Albumin/Globulin Ratio Triglycerides Cholesterol LDL Cholesterol VLDL Cholesterol HDL Cholesterol Ur Random Sodium Urine Creatinine 74.60 01/29/19 04:05 WBC RBC Hgb Hct MCV MCH MCHC RDW Std Deviation RDW Coeff of Deborah Plt Count MPV Immature Gran % (Auto) Neut % (Auto) Lymph % (Auto) [place] % (Auto) Eos % (Auto) Baso % (Auto) Absolute Neuts (auto) Absolute Lymphs (auto) Nucleated RBC % Differential Comment PT INR APTT Sodium Potassium Chloride Carbon Dioxide Anion Gap BUN Creatinine Estim Creat Clear Calc Est GFR (MDRD) Af Amer Est GFR (MDRD) Non-Af BUN/Creatinine Ratio Glucose Lactic Acid Calcium Phosphorus Magnesium Total Bilirubin AST ALT Alkaline Phosphatase Troponin I Total Protein Albumin Globulin Albumin/Globulin Ratio Triglycerides Cholesterol LDL Cholesterol VLDL Cholesterol HDL Cholesterol Ur Random Sodium 25 Urine Creatinine Microbiology 01/29/19 04:05 Urine Catheter - Blount Legionella Antigen - Final 01/29/19 04:05 Urine Catheter - Blount Streptococcus pneumoniae Antigen (M - Final 01/28/19 21:32 Mucosa - Throat Influenza Types A,B Direct FA ([facility]) - Final Clinical Impression(s) from Imaging Studies Chest X-Ray 01/28/19 21:15 IMPRESSION: Little if any significant change. Atelectasis or scarring in both lower lobes worse on the left. Electronically Signed: Bang Wyatt MD at 21:34 EST , Service support , Chest CTA 01/28/19 22:36 IMPRESSION: Positive for pulmonary emboli on the right descending pulmonary artery into the right middle lobe. Atelectasis and/or infiltrate in both lower lobes worse on the left. N.B. : The above information has been verbally conveyed by Bang Wyatt MD to Dana Ratliff MD, on 01/28/2019 23:44:23 (ET). Electronically Signed: Bang Wyatt MD at 23:45 EST , Service support , ADDENDUM: 01/28/19 2352 IMPRESSION: Positive for pulmonary emboli on the right descending pulmonary artery into the right middle lobe. Atelectasis and/or infiltrate in both lower lobes worse on the left. N.B. : The above information has been verbally conveyed by Bang Wyatt MD to Dana Ratliff MD, on 01/28/2019 23:44:23 (ET). Electronically Signed: Bang Wyatt MD at 23:45 EST , Service support , Current Medications Acetaminophen (Tylenol) 650 mg RECTAL Q4H PRN PRN PRN Reason: fever, pain Albuterol Sulfate (Ventolin Aerosols) 2.5 mg INHALATION Q2H PRN PRN PRN Reason: dyspnea, wheezing Aspirin (Aspirin) 300 mg RECTAL DAILY ERNESTO Dextrose (D50w Syringe) 0 gm IV X1 PRN; Protocol PRN Reason: Hypoglycemia Fentanyl Citrate (Sublimaze (100mcg Ampule)) 25 mcg IV Q2H PRN PRN PRN Reason: Pain Score 4-10/10 Glucagon () 1 mg IM .X1 PRN PRN Reason: Hypoglycemia Heparin Sodium (Beef Lung) () 50 units IV UD PRN PRN Reason: Port-a-Cath (VAD)Heparin Flush Heparin Sodium (Porcine) (Heparin Na) 0 unit IV UD PRN; Protocol Hydrocortisone Sodium Succinate (Solu-Cortef) 50 mg IV Q6 ERNESTO Last Admin: 01/29/19 06:19 Dose: 50 mg Documented by: Heparin Sodium/Dextrose () 25,000 units in 250 mls @ 10 mls/hr IV .Q25H ERNESTO; Protocol Last Titration: 01/29/19 06:09 Dose: 7 mls/hr Documented by: Sodium Chloride () 1,000 mls @ 150 mls/hr IV .Q6H40M ERNESTO Last Infusion: 01/29/19 06:17 Dose: 150 mls/hr Documented by: Vancomycin IV Pharmacy to Dose (1 ea/ Sodium Chloride) 500 mls @ 250 mls/hr IV X1 PRN; Protocol PRN Reason: Rx to Dose Piperacillin Sod/Tazobactam (Sod 3.375 gm/ Sodium Chloride) 50 mls @ 12.5 mls/hr IV Q8 ERNESTO Last Admin: 01/29/19 06:16 Dose: 12.5 mls/hr Documented by: Sodium Chloride () 250 mls @ 15 mls/hr IV .[id number] PRN PRN Reason: Saline Flush Last Admin: 01/29/19 06:17 Dose: 15 mls/hr Documented by: Vancomycin HCl (Vancomycin) 1,000 mg in 200 mls @ 200 mls/hr IV Q24H ERNESTO Vasopressin 20 units/ Sodium (Chloride) 25 mls @ 3 mls/hr IV .Q8H20M ERNESTO Last Infusion: 01/29/19 06:00 Dose: 0.04 units/min, 3 mls/hr Documented by: Norepinephrine Bitartrate 8 mg (/ Sodium Chloride) 250 mls @ 9.375 mls/hr CONT INF .[id number] [facility]; Protocol Last Titration: 01/29/19 06:00 Dose: 5 mcg/min, 9.4 mls/hr Documented by: Morphine Sulfate () 1 - 2 mg IV Q4H PRN PRN PRN Reason: Pain Score 1-3/10 Nitroglycerin (Nitrostat) 0.4 mg SUBLINGUAL Q5M PRN PRN Reason: CARDIAC/CHEST PAIN Ondansetron HCl (Zofran) 4 mg IV Q8H PRN PRN PRN Reason: NAUSEA/VOMITING Last Admin: 01/29/19 04:08 Dose: 4 mg Documented by: Sodium Chloride () 10 - 40 ml IV UD PRN PRN Reason: Port-a-Cath (VAD) Flush Last Admin: 01/29/19 04:08 Dose: 10 ml Documented by: Sodium Chloride (0.9% Nacl (Sterile) Posiflush) 10 - 40 ml IV UD PRN PRN Reason: Port access or dressing change Sodium Chloride () 10 - 40 ml IV UD PRN PRN Reason: SALINE FLUSH Assessment/Plan Active and Suspected Problems Septic shock (Acute) UTI (urinary tract infection) (Acute) Pneumonia (Acute) KELLEE (acute kidney injury) (Acute) Hypokalemia (Acute) Encephalopathy acute (Acute) RECOMMENDATIONS: 1. Continue broad-spectrum antimicrobial coverage, pending infectious work-up. 2. Add on urine culture. 3. Check MRSA screen. 4. Await echocardiogram and further evaluation by cardiology. 5. Oncology consultation is pending. 6. Vasopressin can be discontinued. Continue Levophed and titrate to maintain a mean arterial pressure at or above 65 mmHg. 7. Once vasopressor support has been discontinued completely, stress dose steroids can be weaned. IMPRESSIONS: 1. Septic shock Most likely secondary to complicated urinary tract infection. Cultures are currently pending. The patient will be continued on broad-spectrum antimicrobial coverage, pending finalized infectious work-up. She has been adequately volume resuscitated. Continue vasopressor support to maintain a mean arterial pressure at or above 65 mmHg. Once the patient has stabilized from a hemodynamic perspective, stress dose steroids will be weaned. 2. Acute kidney injury Likely ischemic ATN in the setting of #1. Anticipate improvement with stabilization of hemodynamics and with volume expansion. Blount catheter is currently in place. Continue to monitor urine output. No current indication for renal replacement therapy. 3. Troponin elevation The patient experienced a treat troponin leak of 22. While the patient did have pulmonary emboli identified on CTA chest, the clot burden noted was not extensive enough that I would expect such an elevated troponin level. The enzyme leak, nevertheless, may be a combination of the pulmonary emboli coupled with the demand of septic shock. An echocardiogram is currently pending. Cardiology has been consulted to evaluate the patient. 4. Acute pulmonary emboli Continue systemic anticoagulation. The patient may be able to be transferred to [facility] tomorrow, pending stabilization in her clinical state. 5. Metabolic/infectious encephalopathy Improved with aggressive supportive measures including broad-spectrum antimicrobials and supplemental IV fluids. 6. History of renal cell carcinoma undergoing chemotherapy/baseline paraplegia/chronic pain syndrome Complicates care, management, recovery and prognosis. Speech therapy to evaluate patient prior to advancement of diet. TIME: 40 minutes of critical care time, independent of procedures, was spent addressing the patient's septic shock secondary to presumptive urinary tract source of infection, acute kidney injury, troponin elevation, acute pulmonary emboli, metabolic encephalopathy, review of all data and collaboration with the care team. ([id number]) Code Visit [id number]: [id number] Critical care first hour
--- NOTE | 2019-01-29 06:54 | EKG12_ITS ---
Test Reason : DAILY Blood Pressure : / mmHG Vent. Rate : 076 BPM Atrial Rate : 076 BPM P-R Int : 156 ms QRS Dur : 086 ms QT Int : 470 ms P-R-T Axes : 032 -37 -04 degrees QTc Int : 528 ms Normal sinus rhythm Left axis deviation Septal infarct , age undetermined Prolonged QT Abnormal ECG No previous ECGs available Confirmed by COLETTE ROWLAND, VALENTINA ([id number]), editor farm journal GEORGINA ASTUDILLO ([id number]) on 02/09/2019 2:00:34 PM Referred By: CARLENE MOTLEY Confirmed By:VALENTINA ALVARENGA MD
[2019-01-29 09:04] LABS: M R Staph aureus DNA By PCR Negative (Negative); Probe Check PASS; Specimen Processing Control PASS
--- NOTE | 2019-01-29 09:20 | CM.UR ---
Participated in interdisciplinary rounds this am. Patient awake and alert with family present. Is on room air without distress. Blount in and draining. Patient to be evaluated by [facility] and then based on their recommendations she will be allowed to eat. Explained will back in a little bit to complete CM assessment. Verb agreement. Garth Butler RN, CCM.
--- NOTE | 2019-01-29 09:40 | PN_ITS ---
Patient Problems: Active and Suspected Problems Septic shock (Acute) UTI (urinary tract infection) (Acute) Pneumonia (Acute) KELLEE (acute kidney injury) (Acute) Hypokalemia (Acute) Encephalopathy acute (Acute) Subjective: Patient seen and examined. She was admitted with a complaint of fever, chills and general feeling of unwellness. She has a history of paraplegia due to spinal cord compression, renal cancer s/p surgery, currently on chemotherapy. Troponins were markedly elevated on admission, and she was hypotensive as well. lactic acid was elevated, and wbc was elevated. CT showed rught pulmonary emboli and atelectasis and/or infiltrate in both lower lobes, worse on the left. She is being managed for septic shock likely due to UTI, Nonstemi and PE. Patient still feels unwell today. She denies any fever or chills, any nausea vomiting or any pelvic pain at diarrhea. Review of systems otherwise negative. She was just taken off of Levophed this morning but blood pressure still low. Labs and vitals reviewed. Lactic acid trended down to 2.7. Troponins went from 22.9-20.3 and on 12.9. wbc is down to 12.4. Vitals/I&O's: Vital Signs Temp Pulse Resp BP Pulse Ox 98.5 F 88 20 H 87/74 L 95 01/29/19 07:15 01/29/19 09:00 01/29/19 09:00 01/29/19 09:00 01/29/19 09:00 Oxygen Flow Rate (L/min) 2 Oxygen Delivery Method Room Air Weight: 156 lb 8.451 oz Body Mass Index (BMI) 25.2 Intake and Output for Last 24 Hours 01/27/19 01/28/19 01/29/19 23:59 23:59 23:59 Intake Total 2595.10 / 2595.10 1729.88 / 1729.88 Output Total 150 / 150 Balance 2595.10 / 2595.10 1579.88 / 1579.88 General: Alert, Oriented x3, Cooperative, No apparent distress, Lethargic HEENT: Atraumatic, PERRLA, EOMI, Normocephalic Oral: Dry Mucosa Neck: Supple, No JVD, Negative Carotid Bruits, Negative Hepatojugular Reflux, No Nodes Lungs: Clear to auscultation, Normal air movement, No rhonchi, No wheeze, No rales Cardiovascular: Regular rate, Regular Rhythm, Normal S1, Normal S2, No murmurs Abdomen: Bowel Sounds Present, Soft, Non Tender, Non-Distended, No Hepato- splenomegaly Extremities: No clubbing, No cyanosis, No edema, Capillary Refill Less than 3 Seconds Skin: No rashes, No breakdown Musculoskeletal: No Tenderness to Palpation of Joints or Extremities Lymphatic: No Cervical, Supraclavicular, or Inguinal Adenopathy Neurological: Cranial nerves II-XII grossly intact, - - power in LE is 1/5 bilaterally Psych/Mental Status: Normal Affect, Appropriate, Alert and oriented to time, place, person, mood and affect Microbiology Past 72 Hours 01/29/19 01:30 Mucosa - Nose Respiratory Panel (PCR) - Final 01/29/19 04:05 Urine Catheter - [place] Legionella Antigen - Final 01/29/19 04:05 Urine Catheter - [place] Streptococcus pneumoniae Antigen (M - Final 01/28/19 21:32 Mucosa - Throat Influenza Types A,B Direct FA (DANNY) - Final Laboratory Results 01/28/19 21:35: WBC 14.7 H, RBC 5.52 H, Hgb 14.0, Hct 45.4, MCV 82.2, MCH 25.4 L , MCHC 30.8 L, RDW Std Deviation 50.4 H, RDW Coeff of Deborah 17.2 H, Plt Count 170, MPV 10.3, Immature Gran % (Auto) 0.600, Neut % (Auto) 96.4 H, Lymph % (Auto) 1.6 L, [place] % (Auto) 0.3, Eos % (Auto) 0.8, Baso % (Auto) 0.3, Absolute Neuts (auto) 14.1 H, Absolute Lymphs (auto) 0.24 L, Nucleated RBC % 0, Differential Comment SCANNED 01/28/19 21:35: PT 16.5 H, INR 1.4, APTT 44.7 H 01/28/19 21:35: Sodium 141, Potassium 3.0 L, Chloride 107, Carbon Dioxide 21.0, Anion Gap 13, BUN 26 H, Creatinine 1.53 H, Estim Creat Clear Calc 38.89, Est GFR (MDRD) Af Amer 45 L, Est GFR (MDRD) Non-Af 37 L, BUN/Creatinine Ratio 17.0, Glucose 135 H, Calcium 8.7, Total Bilirubin 0.70, AST 150 H, ALT 52, Alkaline Phosphatase 124 H, Troponin I 22.900 H*, Total Protein 6.1 L, Albumin 2.7 L, Globulin 3.4, Albumin/Globulin Ratio 0.8 L 01/28/19 21:35: Lactic Acid 4.2 H* 01/29/19 00:12: Phosphorus 3.3, Magnesium 1.6 01/29/19 00:12: Troponin I 20.300 H* 01/29/19 02:03: Lactic Acid 2.7 H 01/29/19 03:35: WBC 12.4 H, RBC 5.06, Hgb 12.5, Hct 41.6, MCV 82.2, MCH 24.7 L, MCHC 30.0 L, RDW Std Deviation 50.4 H, RDW Coeff of Deborah 17.2 H, Plt Count 151, MPV 9.9, Immature Gran % (Auto) 0.600, Neut % (Auto) 96.2 H, Lymph % (Auto) 2.2 L, [place] % (Auto) 0.4, Eos % (Auto) 0.4, Baso % (Auto) 0.2, Absolute Neuts (auto) 12.0 H, Absolute Lymphs (auto) 0.27 L, Nucleated RBC % 0 01/29/19 03:35: Sodium 140, Potassium 4.2, Chloride 109 H, Carbon Dioxide 21.0, Anion Gap 10, BUN 25 H, Creatinine 1.39 H, Estim Creat Clear Calc 42.81, Est GFR (MDRD) Af Amer 51 L, Est GFR (MDRD) Non-Af 42 L, BUN/Creatinine Ratio 18.0, Glucose 185 H, Calcium 7.5 L, Total Bilirubin 0.80, AST 197 H, ALT 68 H, Alkaline Phosphatase 116, Total Protein 5.1 L, Albumin 2.1 L, Globulin 3.0, Albumin/Globulin Ratio 0.7 L, Triglycerides 143, Cholesterol 147, LDL Cholesterol 60, VLDL Cholesterol 29, HDL Cholesterol 58 01/29/19 03:35: Troponin I 12.900 H* 01/29/19 03:35: APTT 119.2 H* 01/29/19 04:05: Urine Creatinine 74.60 01/29/19 04:05: Ur Random Sodium 25 01/29/19 06:40: MRSA (PCR) Negative Diagnostic Data Chest X-Ray 01/28/19 21:15 IMPRESSION: Little if any significant change. Atelectasis or scarring in both lower lobes worse on the left. Electronically Signed: Bang Wyatt MD at 21:34 EST , Service support , Chest CTA 01/28/19 22:36 IMPRESSION: Positive for pulmonary emboli on the right descending pulmonary artery into the right middle lobe. Atelectasis and/or infiltrate in both lower lobes worse on the left. N.B. : The above information has been verbally conveyed by Bang Wyatt MD to Dana Ratliff MD, on 01/28/2019 23:44:23 (ET). Electronically Signed: Bang Wyatt MD at 23:45 EST , Service support , ADDENDUM: 01/28/19 2352 IMPRESSION: Positive for pulmonary emboli on the right descending pulmonary artery into the right middle lobe. Atelectasis and/or infiltrate in both lower lobes worse on the left. N.B. : The above information has been verbally conveyed by Bang Wyatt MD to Dana Ratliff MD, on 01/28/2019 23:44:23 (ET). Electronically Signed: Bang Wyatt MD at 23:45 EST , Service support , Current Medications Acetaminophen (Tylenol) 650 mg RECTAL Q4H PRN PRN PRN Reason: fever, pain Albuterol Sulfate (Ventolin Aerosols) 2.5 mg INHALATION Q2H PRN PRN PRN Reason: dyspnea, wheezing Aspirin (Aspirin) 300 mg RECTAL DAILY ERNESTO Dextrose (D50w Syringe) 0 gm IV X1 PRN; Protocol PRN Reason: Hypoglycemia Fentanyl Citrate (Sublimaze (100mcg Ampule)) 25 mcg IV Q2H PRN PRN PRN Reason: Pain Score 4-10/10 Glucagon () 1 mg IM .X1 PRN PRN Reason: Hypoglycemia Heparin Sodium (Beef Lung) () 50 units IV UD PRN PRN Reason: Port-a-Cath (VAD)Heparin Flush Heparin Sodium (Porcine) (Heparin Na) 0 unit IV UD PRN; Protocol Hydrocortisone Sodium Succinate (Solu-Cortef) 50 mg IV Q6 ERNESTO Last Admin: 01/29/19 06:19 Dose: 50 mg Documented by: Heparin Sodium/Dextrose () 25,000 units in 250 mls @ 10 mls/hr IV .Q25H ERNESTO; Protocol Last Titration: 01/29/19 08:00 Dose: 7 mls/hr Documented by: Vancomycin IV Pharmacy to Dose (1 ea/ Sodium Chloride) 500 mls @ 250 mls/hr IV X1 PRN; Protocol PRN Reason: Rx to Dose Piperacillin Sod/Tazobactam (Sod 3.375 gm/ Sodium Chloride) 50 mls @ 12.5 mls/hr IV Q8 ERNESTO Last Admin: 01/29/19 06:16 Dose: 12.5 mls/hr Documented by: Sodium Chloride () 250 mls @ 15 mls/hr IV .[id number] PRN PRN Reason: Saline Flush Last Admin: 01/29/19 06:17 Dose: 15 mls/hr Documented by: Vancomycin HCl (Vancomycin) 1,000 mg in 200 mls @ 200 mls/hr IV Q24H ERNESTO Norepinephrine Bitartrate 8 mg (/ Sodium Chloride) 250 mls @ 9.375 mls/hr CONT INF .[id number] ERNESTO; Protocol Last Titration: 01/29/19 09:00 Dose: 0 mcg/min, 0 mls/hr Documented by: Nitroglycerin (Nitrostat) 0.4 mg SUBLINGUAL Q5M PRN PRN Reason: CARDIAC/CHEST PAIN Ondansetron HCl (Zofran) 4 mg IV Q8H PRN PRN PRN Reason: NAUSEA/VOMITING Last Admin: 01/29/19 04:08 Dose: 4 mg Documented by: Sodium Chloride () 10 - 40 ml IV UD PRN PRN Reason: Port-a-Cath (VAD) Flush Last Admin: 01/29/19 04:08 Dose: 10 ml Documented by: Sodium Chloride (0.9% Nacl (Sterile) Posiflush) 10 - 40 ml IV UD PRN PRN Reason: Port access or dressing change Sodium Chloride () 10 - 40 ml IV UD PRN PRN Reason: SALINE FLUSH STROKE Vital Signs/Narrative: Vital Signs Temp Pulse Resp BP Pulse Ox 01/29/19 09:00 88 20 H 87/74 L 95 01/29/19 08:00 86 16 82/65 L 95 01/29/19 07:30 79 16 92/68 95 01/29/19 07:15 98.5 F 76 14 102/77 96 01/29/19 07:00 98.6 F 78 18 111/82 H 97 01/29/19 06:00 98.5 F 71 17 103/82 H 97 Medical Necessity - Tobacco Use Smoking Status: Never smoker Tobacco Use: Non-smoker Assessment/Plan All Active Problems Septic shock (Acute) UTI (urinary tract infection) (Acute) Pneumonia (Acute) KELLEE (acute kidney injury) (Acute) Hypokalemia (Acute) Encephalopathy acute (Acute) 1. Septic shock due to UTI * has a history of neurogenic bladder and self catheterises at home * was resuscitated per sepsis protocol; required levophed for blood pressure support. Was just weaned off levophed this morning * on IV vancomycin and zosyn * urine for strep and legionella is negative * urine and blood cultures pending * respiratory panel also negative * critical care on board * 2. Nonstemi * does complain of some chest heaviness, troponin was 22 on admission ->20->12.9 * on heparin drip * CTA did show right pulmonary embolism, but I doubt the clot burden is enough to ascribe the markedly elevated troponin solely to the PE * 2D echo done, reading pending * cardiology consulted- await rec's * 3. PE: CTA as under 2. on heparin drip. 4. KELLEE: * likely pre-renal, due to septic shock. * Cr was 1.53 on admission, now 1.39. * Improving. being hydrated with IVF NS and was on levophed. * Will trend Cr * 5. Hypokalemia: Potassium was 3 on admission. Now 4.2 with placement. 6. 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 * follows Dr Valiente * 7. Acute metabolic encephalopathy due to septic shock: resolved. Now alert and responsive. 8. Chronic pain syndrome: pain meds on hold o/a of her being lethargic on admission. Currently stable. Will monitor DVT prophylaxis: on heparin drip. Code Visit Inpatient E&M: 10759 Subs Hosp L3
[2019-01-29 11:10] LABS: Partial Thromboplast Time 55.3 Seconds (24.1-36.2)
--- NOTE | 2019-01-29 11:18 | CON.PCM_ITS ---
Reason for Consult Date of Consultation: 01/29/19 Reason for Consultation: Chest pain History of Present Illness: The patient is a 53 year old F with a past medical history consisting of metastatic renal cell carcinoma status post chemotherapy with her receiving the last dose of likely immunotherapy day prior to presentation. She also has a history of paraplegia following lesions in her spine and chronic neurogenic bladder. She presented to the emergency room with malaise, nausea, fevers and chills starting 4 days prior to presentation and then also had some fever. She had been treated with antibiotics and anti-fungal therapy. Her condition had been declining and she had had some fever. She presented to the emergency room and she was noted to be hypotensive. She was treated with intravenous fluids and then transferred to the intensive care unit. She was also started on heparin and Brilinta after speaking to the senior physician. Patient was also noted to have an elevated troponin and it was felt that perhaps she had had an acute myocardial event. She denies any chest pain though. Past Medical History Allergies/Adverse Reactions: Allergies No Known Allergies Allergy (Verified 01/28/19 20:53) Home Medications: Ambulatory Orders Medication Instructions Recorded Amox/Clavulanate Tablet [Augmentin 875 mg PO Q12H #20 tab 12/12/18 Tablet] Baclofen [Lioresal] 5 mg PO TID 12/12/18 Furosemide [Lasix] 20 mg PO PRN PRN 12/12/18 Gabapentin [Neurontin] 600 mg PO Q8H 12/12/18 Ondansetron [Zofran] 8 mg PO Q8H PRN PRN 12/12/18 Oxycodone Myristate [Xtampza ER] 18 mg PO Q12H 12/12/18 Prednisone 5 mg PO DAILY 12/12/18 Temazepam [Restoril] 30 mg PO QHS 12/12/18 Tizanidine HCl [Zanaflex] 4 mg PO Q8H PRN 12/12/18 Past Medical History (Chronic Problems): Chronic Problems Renal carcinoma (Chronic) Chronic pain syndrome (Chronic) Surgical History: - - Neck surgery with hardware, lumbar surgery with hardware with corrective follow-up surgery, left lower extremity femur surgery with hardware placement secondary to cancerous lesions, cholecystectomy, tonsillectomy, port placement. 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 Paternal History Items: - - Patient with a paternal family history of lung cancer, tobacco use history concurrently. Lives: Spouse/ Significant Other - Patient lives with her , has caregivers coming in. Smoking Status: Never smoker Tobacco Use: Non-smoker Alcohol: None Drugs: None Review of Systems - Review of Systems General: Reports: Fever, Fatigue. Denies: Night Sweats HEENT: Denies: Vision Change Cardiovascular: Denies: Chest Discomfort, Shortness of Breath, Orthopnea, PND, Peripheral Edema, Palpitations, Lightheadedness, Dizziness, Near Syncope, Syncope Respiratory: Denies: Cough, Sputum Production, Hemoptysis Gastrointestinal: Denies: Hematemesis, Hematochezia, Melena Genitourinary: Denies: Dysuria, Hematuria Muscoloskeletal: Denies: Myalgias Skin: Denies: Rash Neurological: Reports: Dizziness Psychiatric: Denies: Anxiety Endocrine: Denies: Heat Intolerance Subjectve: Pleasant lady in no distress Objective: Vital Signs Temp Pulse Resp BP Pulse Ox 98.5 F 88 20 H 87/74 L 95 01/29/19 07:15 01/29/19 09:00 01/29/19 09:00 01/29/19 09:00 01/29/19 09:00 Oxygen Flow Rate (L/min) 2 Oxygen Delivery Method Room Air Weight: 156 lb 8.451 oz Body Mass Index (BMI) 25.2 Intake and Output for Last 24 Hours 01/27/19 01/28/19 01/29/19 23:59 23:59 23:59 Intake Total 2595.10 / 2595.10 1729.88 / 1729.88 Output Total 150 / 150 Balance 2595.10 / 2595.10 1579.88 / 1579.88 General: Awake, Alert, Oriented x 3 HEENT: PERRL, EOMI, Sclera Non Icteric Neck: Supple, Good ROM, No Lymph Node Enlargement Lungs: Clear to auscultation Cardiovascular: Regular Rhythm, Normal S1, Normal S2, No Murmurs, No Rubs, No Gallops Vascular: No Carotid Bruits, Normal Femoral Pulses, Normal Radial Pulses, Normal Dorsalis Pedal Pulse, Normal Posterior Tibial Pulses Abdomen: Bowel Sounds Present, Soft, Non Tender, No HSM, No Organomegaly Extremities: No Cyanosis, No Clubbing, No edema Musculoskeletal: No Erythema Skin: No Rashes Lymphatic: No Lymph Node Enlargement Neurological: No Focal Motor or Sensory Deficit 01/28/19 21:35: WBC 14.7 H, RBC 5.52 H, Hgb 14.0, Hct 45.4, MCV 82.2, MCH 25.4 L , MCHC 30.8 L, Plt Count 170, MPV 10.3, Immature Gran % (Auto) 0.600, Neut % (Auto) 96.4 H, Lymph % (Auto) 1.6 L, [place] % (Auto) 0.3, Eos % (Auto) 0.8, Baso % (Auto) 0.3, Absolute Neuts (auto) 14.1 H, Nucleated RBC % 0 01/28/19 21:35: PT 16.5 H, INR 1.4, APTT 44.7 H 01/28/19 21:35: Sodium 141, Potassium 3.0 L, Chloride 107, Carbon Dioxide 21.0, Anion Gap 13, BUN 26 H, Creatinine 1.53 H, Est GFR (MDRD) Af Amer 45 L, Est GFR (MDRD) Non-Af 37 L, BUN/Creatinine Ratio 17.0, Glucose 135 H, Calcium 8.7, Total Bilirubin 0.70, Troponin I 22.900 H* 01/28/19 21:35: Lactic Acid 4.2 H* 01/29/19 00:12: Phosphorus 3.3, Magnesium 1.6 01/29/19 00:12: Troponin I 20.300 H* 01/29/19 02:03: Lactic Acid 2.7 H 01/29/19 03:35: WBC 12.4 H, RBC 5.06, Hgb 12.5, Hct 41.6, MCV 82.2, MCH 24.7 L, MCHC 30.0 L, Plt Count 151, MPV 9.9, Immature Gran % (Auto) 0.600, Neut % (Auto) 96.2 H, Lymph % (Auto) 2.2 L, [place] % (Auto) 0.4, Eos % (Auto) 0.4, Baso % (Auto) 0.2, Absolute Neuts (auto) 12.0 H, Nucleated RBC % 0 01/29/19 03:35: Sodium 140, Potassium 4.2, Chloride 109 H, Carbon Dioxide 21.0, Anion Gap 10, BUN 25 H, Creatinine 1.39 H, Est GFR (MDRD) Af Amer 51 L, Est GFR (MDRD) Non-Af 42 L, BUN/Creatinine Ratio 18.0, Glucose 185 H, Calcium 7.5 L, Total Bilirubin 0.80, Triglycerides 143, Cholesterol 147, LDL Cholesterol 60, VLDL Cholesterol 29, HDL Cholesterol 58 01/29/19 03:35: Troponin I 12.900 H* 01/29/19 03:35: APTT 119.2 H* 01/29/19 10:45: APTT 55.3 H Rhythm: EKG: Sinus tachycardia with a rate of 118 bpm with evidence of septal infarct and nonspecific ST changes noted, EKG this morning demonstrates normal sinus rhythm with a rate of 76 bpm and T wave inversions ECHO: Severe left ventricular systolic dysfunction with mid anterior to apical akinesis and hypokinesis of the rest of the ventricle. Estimated EF is 15% Stress Test: Cardiac Cath: PCI: CT Surgery: Holter monitor: EPS: PPM: CXR: Chest CT Scan: Assessment/Plan 1. Non-ST elevation myocardial infarction * The exact precipitating etiology is not clear. It is unusual for her current chemotherapeutic medication toracil to be responsible for the above. She likely had underlying coronary disease. Takotsubo cardiomyopathy cannot be completely excluded especially due to the configuration as well as the EKG changes. * Recommendation at this time will be to continue anticoagulation with heparin * Continue aspirin * Continue Brilinta for now * Would likely undergo cardiac catheterization in 24 to 48 hours. * Would institute high intensity statin * Hold off on beta-blockers for now due to her hypotensive state * 2. Cardiomyopathy * She does have evidence of cardiomyopathy which may be ischemic. * Her global longitudinal score is less than 10 * Once she is appropriately started and revascularized an CHERI inhibitor or ARB or Entresto should be considered as well as carvedilol. * 3. Hypotension * Is likely multifactorial from sepsis as well as cardiac * Continue supportive IV fluids and pressor agents * Would also recommend replenishing her electrolytes with potassium and magnesium as appropriate * * Above discussed with hospitalist and oncologist. * * Thank you for allowing me to participate in the care of your patient. Please don't hesitate to call if any issues arise
[2019-01-29] MEDS: fentaNYL 100 MCG/2 ML Ampul 25 MCG IV ×2 (11:49→21:56)
[2019-01-29] MEDS: 0.9 % NaCl (Sterile) Posiflush 10 mL IV (11:50)
[2019-01-29] MEDS: 0.9% Normal Saline 1,000 ML 75 ML IV (11:51)
--- NOTE | 2019-01-29 12:33 | CON.PCM_ITS ---
- Problem List (1) Renal carcinoma Status: Chronic Qualifiers: Laterality: right Qualified Code(s): C64.1 - Malignant neoplasm of right kidney, except renal pelvis Subjective Chief Complaint: lethargy, nausea, fever History of Present Illness: Diagnosis: 1) Metastatic renal cancer (unclassified histology). ? HPI: The patient is a 53-year-old female who underwent evaluation for back pain in 2012. Had MRI of the cervical and thoracic spine December 2012. The study revealed a mass in the C4/C5 area. She then underwent additional radiographic work up including CT scans of the chest, abdomen and pelvis that revealed a mass in the right kidney. There was also a lytic lesion in T9 observed. Patient underwent a C4/C5 facetectomy with right hemilaminectomy and posterior segmental fusion from C4-C6 on 02/25/[address] Allen at [facility]. Pathology demonstrated a non-small cell carcinoma. ? Patient received adjuvant external beam radiation treatment to the cervical and thoracic spine. ? She then underwent right nephrectomy in 03/30/[address] Hampton at [facility] in [place]. 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 ? Underwent merly to left femur and surgery to thoracic spine with instrumentation T9/T10 at [facility] in [place], [place] early 2013. Received XRT to thoracic spine. ? Then established oncologic care with Dr. Sotelo and nivolumab was recommended. Patient initially had no side effect, but did develop arthritis about a year prior to transferring care to co. Received treatment with MTX which helped. ? In February 2018, she presented to an outside hospital on 02/18 with progressive myelopathy and lower extremity weakness. Imaging revealed high-grade compression with edema in the cord at T9 with retropulsion of bony fragments into the canal. She was transferred to [facility] for urgent surgical decompression and stabilization. ? MRI of cervical, thoracic and lumbar spine performed urgently demonstrated postsurgical changes in the mid cervical spine with lateral mass screws at C5- C7. Prior laminectomy at C6. The findings were incompletely characterized. No evidence of pathologic marrow infiltration was observed. There was marked cord compression of the thoracic cord at T8-T10 level. Edema involving the thoracic cord extending from the mid thoracic level through the conus. There was markedly T2 hypointense T9 body which was severely flattened and retropulsed. Abnormal marrow signal in the posterior elements of T9 on the left including left pedicle, pars and lamina. There was an enhancing lesion along the left inferior and dorsal aspect of the retropulsed body concerning for component of extraosseous disease. This measured about 0.9 cm in anterior-posterior direction. Additionally there was signal abnormality involving the left dorsal lateral aspect of T8 vertebral body extending to the posterior elements on the left with partial enhancement that was highly concerning for marrow lesion. There was also small T2 hyperintense lesion in T5 with postcontrast enhancement concerning for an additional metastasis. There was no evidence of metastatic disease in the cervical or lumbar spine. ? She underwent ?exploration of prior fusion, removal of prior hardware from T8- ?T10, T6-L1 instrumented pedicle fixation and fusion with stereotactic navigation, T9 ?bilateral transpedicular posterior subtraction osteotomy as well as decompression, ?use of allograft for fusion on 02/18/2018. ? No definitive tumor was identified intraoperatively. ? Pathology: 1. Bone, T9 vertebral body, biopsy (A) - Benign-appearing bone with focal osteonecrosis. - Negative for definite neoplasm. 2. Hardware, spine, removal (B) - Unremarkable components of spinal hardware (gross diagnosis only). ? Previous therapy: 1) Opdivo. Had progressive disease. 2) Single fraction radiation to T10 lesion 600 cGy in one fraction 10/08/2018. ? Current therapy: 1) Torisel. Most recent MRI 01/18/2019: Counting reference: ?Lumbosacral junction. ?For the purposes of this report, anatomic variants: None. ?L4-5 is considered the level of the iliac crest and assume there are 5 lumbar-type vertebrae. Alignment: ?Grade 3 anterolisthesis at T8-9 due to pathologic fracture, essentially unchanged from prior study. Cord: ?Stable single changes in the mid to lower cord and fusiform cord enlargement extending from T7-8 through T10-11. ?Extent of epidural and intramedullary tumor extension originating at T9 appears unchanged. Bone marrow signal/fracture: ?Stable postsurgical changes from T8-10 laminectomy and T6-L1 posterior spinal fusion. ?Pathologic compression fracture at T9 with near complete loss of vertebral body height and metastatic marrow replacement appears unchanged. ?No evidence of new pathologic marrow replacement or fracture. Thoracic paraspinal soft tissues: ?Postoperative changes in the dorsal soft tissues. ?Right nephrectomy. ?Incidentally noted small cysts in the left kidney and liver. Canal and foramina: ?Moderate to severe spinal canal and bilateral neural foraminal narrowing at T8-9 and T9-T10 secondary to epidural tumor extension appears unchanged. ?No evidence of high-grade spinal canal or neural foraminal stenosis. IMPRESSION: No significant change compared to prior study. ?No appreciable disease progression. Stable postsurgical changes and deformity associated with pathologic fracture at T9 and resultant grade 3 anterolisthesis at T8-9 with epidural and intramedullary tumor extension as described above. Most recent outpatient lab work 01/18/2019: Component Latest Ref Rng & Units 01/18/2019 Protein, Total 6.3 - 8.0 g/dL 6.2 (L) Albumin 3.9 - 4.9 g/dL 3.5 (L) Calcium 8.5 - 10.2 mg/dL 9.9 Bilirubin, Total 0.2 - 1.3 mg/dL 0.2 Alkaline Phosphatase 34 - 123 U/L 107 AST 13 - 35 U/L 10 (L) Glucose 74 - 99 mg/dL 93 BUN 7 - 21 mg/dL 5 (L) Creatinine 0.58 - 0.96 mg/dL 0.53 (L) Sodium 136 - 144 mmol/L 140 Potassium 3.7 - 5.1 mmol/L 3.9 Chloride 97 - 105 mmol/L 105 CO2 22 - 30 mmol/L 24 Anion Gap 9 - 18 mmol/L 11 ALT 7 - 38 U/L 11 eGFR- >60 eGFR-All Other Races . >60 WBC, Redmond 3.70 - 11.00 k/uL 7.32 RBC, Redmond 3.90 - 5.20 m/uL 4.50 Hemoglobin, Redmond 11.5 - 15.5 g/dL 11.3 (L) Hematocrit, Samm 36.0 - 46.0 % 36.1 MCV, Samm 80.0 - 100.0 fL 80.2 MCH, Samm 26.0 - 34.0 pg 25.1 (L) MCHC, Redmond 30.5 - 36.0 g/dL 31.3 RDW, Samm 11.5 - 15.0 % 15.7 (H) Platelet Cnt, Redmond 150 - 400 k/uL 458 (H) MPV, Samm 9.0 - 12.7 fL 9.4 Absol Gran Count 1.45 - 7.50 k/uL 5.28 Was seen in urgent care on 01/27 for complaints of a whitevaginal dischargethat have been going on for about 2 weeks and possible UTI based on her noticing more sediment or what appeared to be small tissue chunks in the urinary catheter collection bag. she was treated empirically with fluconazole and nitrofurantoin and urinalysis and urine culture were obtained. Urine culture preliminarily demonstrated greater than 100,000 CFU per mL. Sensitivities pending. Last evening patient was brought to the emergency room by her . He report ed a rather rapid decline throughout the day with fever up to 104 and onset of confusion/lethargy. On presentation was noted to have temperature of 99.3 with the initial blood pressure 56/36 coming up to 70/53 on repeat after hydration. Leukocytosis was noted with white count 14,700. Absolute neutrophil count 14,100. Hemoglobin 14.0 g/dL with platelet count 170,000. PT was elevated at 16.5 and the baseline PTT was 44.7. Serum creatinine 1.53 mg/dL. Lactic acid elevated at 4.2. Significantly, troponin I was elevated to 22.9. A CTA of the chest demonstrated intraluminal thrombus in the right descending pulmonary artery along with a small thrombus in the arteries to the right middle lobe. Incidental changes were noted consistent with previous surgery and there was complete destruction of the T9 vertebral body noted with a 1.4 cm anterior listhesis of T8 on T10. Patient was started on IV unfractionated heparin. Blood pressure increased to 111/86 approximately an hour and 20 minutes after initial presentation. She was started on broad-spectrum antibiotics and admitted to the ICU. Echocardiogram performed earlier this morning demonstrated normal LV size with an estimated ejection fraction of 15%. There was severe segmental systolic dysfunction (the apex was akinetic with the mid lateral wall noted to be hypokinetic. Posterior basal, lateral basal, inferior basal showed normal wall motion. The remainder of the wall segments were hypokinetic) and global longitudinal strain of -8.4%. Past Medical History: Chronic Problems Renal carcinoma (Chronic) Chronic pain syndrome (Chronic) Past Medical/Surgical History: Past Medical History - Most Recent Inpatient Visit Past Medical History Start: 01/29/19 00:40 Text: Status: Complete Freq: ONCE Protocol: Document 01/29/19 00:40 MLS (Rec: 01/29/19 01:07 MLS [id number]) BMI Required to complete PMH What is Patient's BMI 25.3 Neurologic Medical History Hx Stroke/TIA No Hx Dementia/Alzheimer's No Hx Parkinson's Disease No Hx Seizures No Hx Multiple Sclerosis No Hx Migraines Yes Cardiac Medical History VTE Present on Admission No Hx Hypertension No Respiratory Medical History Hx COPD No Hx Emphysema No Smoking Status Never smoker Tobacco Use Non-smoker Hx Tobacco Use in last 12 months No Hx Sleep Apnea No Do you snore loudly (louder than talking No or can be heard through closed doors)? Do you often feel tired/ fatigued/ No sleepy during daytime? Has anyone observed you stop breathing No during sleep? STOP Results Negative Genitourinary Medical History Indwelling Catheter in Place on Arrival/ Yes Admission Endocrine Medical History Hx Diabetes No Hx Thyroid Disease No Hematologic Medical History Hx of Blood Transfusion No Hx of Transfusion in last 3 Months No Ever experience any problems with No transfusion(s)? Hx of Preganancy in last 3 Months N/A Nurse Filling Out Transfusion & MSMITH3 Questions: Date: 01/29/19 Time: 01:07 Other Medical History Hx Cancer Yes: kidney metastatic Wound/Pressure Injury Present on Arrival No /Admission Query Text:If yes, chart assessment in Shift/Clinical Findings Central Line/PICC/VAD Present on Arrival Yes /Admission Antibiotics within last 7 days? Yes Risk for Readmission Number of Risk Factors 1 At Risk for Readmission Patient is Not at Risk Patient is eligible for Call Back N Maternal Family History: - - Patient with maternal family history of lung cancer, tobacco use history. Paternal Family History: - - Patient with a paternal family history of lung cancer, tobacco use history concurrently. - Social History Lives: Spouse/ Significant Other - Patient lives with her , has caregivers coming in. Smoking Status: Never smoker Tobacco Use: Non-smoker Alcohol: None Drugs: None Allergies/Adverse Reactions: Allergy/AdvReac Type Severity Reaction Status Date / Time No Known Allergies Allergy Verified 01/28/19 20:53 Vital Signs Height 1.68 m Weight: 71 kg Weight in Pounds 156.5 lbs Pulse Ox 95 Temperature 98.5 F Pulse Rate 88 Respiratory Rate 20 Blood Pressure 87/74 Blood Pressure Position Semi-Fowlers Laboratory Data: Microbiology 01/29/19 01:30 Respiratory Panel (PCR) - Final Mucosa - Nose 01/29/19 04:05 Legionella Antigen - Final Urine Catheter - [place] 01/29/19 04:05 Streptococcus pneumoniae Antigen (M - Final Urine Catheter - [place] 01/28/19 21:32 Influenza Types A,B Direct FA (DANNY) - Final Mucosa - Throat Laboratory Tests 01/29/19 01/29/19 01/29/19 Range/Units 10:45 06:40 04:05 WBC (4.4-11.0) K/mm3 RBC (4.2-5.4) M/mm3 Hgb (12.0-15.0) g/dL Hct (37-47) % MCV (81-99) fL MCH (27.0-32.0) pg MCHC (32-36) g/dL RDW Std Deviation (35.1-43.9) fl RDW Coeff of Deborah (11.6-14.6) % Plt Count (150-450) K/mm3 MPV (6.2-12.0) fl Immature Gran % (Auto) (0.0-0.9) % Neut % (Auto) (47-70) % Lymph % (Auto) (19-41) % Anderson % (Auto) (0-10) % Eos % (Auto) (0-5) % Baso % (Auto) (0-1) % Absolute Neuts (auto) (2.0-7.7) X10^3/uL Absolute Lymphs (auto) (0.83-4.51) X10^3/uL Nucleated RBC % (0-5) % Differential Comment PT (11.7-14.9) SECONDS INR APTT 55.3 H (24.1-36.2) Seconds Sodium (136-145) mmol/L Potassium (3.5-5.1) mmol/L Chloride (98-107) mmol/L Carbon Dioxide (21.0-32.0) mmol/L Anion Gap (5-15) BUN (7-18) mg/dL Creatinine (0.55-1.02) mg/dL Estim Creat Clear Calc ml/min Est GFR (MDRD) Af Amer (>60) mL/min Est GFR (MDRD) Non-Af (>60) mL/min BUN/Creatinine Ratio (10-20) RATIO Glucose (74-106) mg/dL Lactic Acid (0.4-2.0) mmol/L Calcium (8.5-10.1) mg/dL Phosphorus (2.5-4.9) mg/dL Magnesium (1.6-2.6) mg/dL Total Bilirubin (0.20-1.00) mg/dL AST (15-37) U/L ALT (13-56) U/L Alkaline Phosphatase (45-117) U/L Troponin I (<0.045) ng/mL Total Protein (6.4-8.2) g/dL Albumin (3.2-5.0) g/dL Globulin (2.2-4.2) g/dL Albumin/Globulin Ratio (0.9-2.4) RATIO Triglycerides ( - 199) mg/dL Cholesterol (200) mg/dL LDL Cholesterol (0-130) mg/dL VLDL Cholesterol (5-40) mg/dL HDL Cholesterol (40 - ) mg/dL Ur Random Sodium 25 (Not Establ.) mmol/L Urine Creatinine (NO RANGE EST.) mg/dL MRSA (PCR) Negative (Negative) 01/29/19 01/29/19 01/29/19 Range/Units 04:05 03:35 03:35 WBC (4.4-11.0) K/mm3 RBC (4.2-5.4) M/mm3 Hgb (12.0-15.0) g/dL Hct (37-47) % MCV (81-99) fL MCH (27.0-32.0) pg MCHC (32-36) g/dL RDW Std Deviation (35.1-43.9) fl RDW Coeff of Deborah (11.6-14.6) % Plt Count (150-450) K/mm3 MPV (6.2-12.0) fl Immature Gran % (Auto) (0.0-0.9) % Neut % (Auto) (47-70) % Lymph % (Auto) (19-41) % Anderson % (Auto) (0-10) % Eos % (Auto) (0-5) % Baso % (Auto) (0-1) % Absolute Neuts (auto) (2.0-7.7) X10^3/uL Absolute Lymphs (auto) (0.83-4.51) X10^3/uL Nucleated RBC % (0-5) % Differential Comment PT (11.7-14.9) SECONDS INR APTT 119.2 H* (24.1-36.2) Seconds Sodium (136-145) mmol/L Potassium (3.5-5.1) mmol/L Chloride (98-107) mmol/L Carbon Dioxide (21.0-32.0) mmol/L Anion Gap (5-15) BUN (7-18) mg/dL Creatinine (0.55-1.02) mg/dL Estim Creat Clear Calc ml/min Est GFR (MDRD) Af Amer (>60) mL/min Est GFR (MDRD) Non-Af (>60) mL/min BUN/Creatinine Ratio (10-20) RATIO Glucose (74-106) mg/dL Lactic Acid (0.4-2.0) mmol/L Calcium (8.5-10.1) mg/dL Phosphorus (2.5-4.9) mg/dL Magnesium (1.6-2.6) mg/dL Total Bilirubin (0.20-1.00) mg/dL AST (15-37) U/L ALT (13-56) U/L Alkaline Phosphatase (45-117) U/L Troponin I 12.900 H* (<0.045) ng/mL Total Protein (6.4-8.2) g/dL Albumin (3.2-5.0) g/dL Globulin (2.2-4.2) g/dL Albumin/Globulin Ratio (0.9-2.4) RATIO Triglycerides ( - 199) mg/dL Cholesterol (200) mg/dL LDL Cholesterol (0-130) mg/dL VLDL Cholesterol (5-40) mg/dL HDL Cholesterol (40 - ) mg/dL Ur Random Sodium (Not Establ.) mmol/L Urine Creatinine 74.60 (NO RANGE EST.) mg/dL MRSA (PCR) (Negative) 01/29/19 01/29/19 01/29/19 Range/Units 03:35 03:35 02:03 WBC 12.4 H (4.4-11.0) K/mm3 RBC 5.06 (4.2-5.4) M/mm3 Hgb 12.5 (12.0-15.0) g/dL Hct 41.6 (37-47) % MCV 82.2 (81-99) fL MCH 24.7 L (27.0-32.0) pg MCHC 30.0 L (32-36) g/dL RDW Std Deviation 50.4 H (35.1-43.9) fl RDW Coeff of Deborah 17.2 H (11.6-14.6) % Plt Count 151 (150-450) K/mm3 MPV 9.9 (6.2-12.0) fl Immature Gran % (Auto) 0.600 (0.0-0.9) % Neut % (Auto) 96.2 H (47-70) % Lymph % (Auto) 2.2 L (19-41) % Anderson % (Auto) 0.4 (0-10) % Eos % (Auto) 0.4 (0-5) % Baso % (Auto) 0.2 (0-1) % Absolute Neuts (auto) 12.0 H (2.0-7.7) X10^3/uL Absolute Lymphs (auto) 0.27 L (0.83-4.51) X10^3/uL Nucleated RBC % 0 (0-5) % Differential Comment PT (11.7-14.9) SECONDS INR APTT (24.1-36.2) Seconds Sodium 140 (136-145) mmol/L Potassium 4.2 (3.5-5.1) mmol/L Chloride 109 H (98-107) mmol/L Carbon Dioxide 21.0 (21.0-32.0) mmol/L Anion Gap 10 (5-15) BUN 25 H (7-18) mg/dL Creatinine 1.39 H (0.55-1.02) mg/dL Estim Creat Clear Calc 42.81 ml/min Est GFR (MDRD) Af Amer 51 L (>60) mL/min Est GFR (MDRD) Non-Af 42 L (>60) mL/min BUN/Creatinine Ratio 18.0 (10-20) RATIO Glucose 185 H (74-106) mg/dL Lactic Acid 2.7 H (0.4-2.0) mmol/L Calcium 7.5 L (8.5-10.1) mg/dL Phosphorus (2.5-4.9) mg/dL Magnesium (1.6-2.6) mg/dL Total Bilirubin 0.80 (0.20-1.00) mg/dL AST 197 H (15-37) U/L ALT 68 H (13-56) U/L Alkaline Phosphatase 116 (45-117) U/L Troponin I (<0.045) ng/mL Total Protein 5.1 L (6.4-8.2) g/dL Albumin 2.1 L (3.2-5.0) g/dL Globulin 3.0 (2.2-4.2) g/dL Albumin/Globulin Ratio 0.7 L (0.9-2.4) RATIO Triglycerides 143 ( - 199) mg/dL Cholesterol 147 (200) mg/dL LDL Cholesterol 60 (0-130) mg/dL VLDL Cholesterol 29 (5-40) mg/dL HDL Cholesterol 58 (40 - ) mg/dL Ur Random Sodium (Not Establ.) mmol/L Urine Creatinine (NO RANGE EST.) mg/dL MRSA (PCR) (Negative) 01/29/19 01/29/19 01/28/19 Range/Units 00:12 00:12 21:35 WBC (4.4-11.0) K/mm3 RBC (4.2-5.4) M/mm3 Hgb (12.0-15.0) g/dL Hct (37-47) % MCV (81-99) fL MCH (27.0-32.0) pg MCHC (32-36) g/dL RDW Std Deviation (35.1-43.9) fl RDW Coeff of Deborah (11.6-14.6) % Plt Count (150-450) K/mm3 MPV (6.2-12.0) fl Immature Gran % (Auto) (0.0-0.9) % Neut % (Auto) (47-70) % Lymph % (Auto) (19-41) % Anderson % (Auto) (0-10) % Eos % (Auto) (0-5) % Baso % (Auto) (0-1) % Absolute Neuts (auto) (2.0-7.7) X10^3/uL Absolute Lymphs (auto) (0.83-4.51) X10^3/uL Nucleated RBC % (0-5) % Differential Comment PT (11.7-14.9) SECONDS INR APTT (24.1-36.2) Seconds Sodium (136-145) mmol/L Potassium (3.5-5.1) mmol/L Chloride (98-107) mmol/L Carbon Dioxide (21.0-32.0) mmol/L Anion Gap (5-15) BUN (7-18) mg/dL Creatinine (0.55-1.02) mg/dL Estim Creat Clear Calc ml/min Est GFR (MDRD) Af Amer (>60) mL/min Est GFR (MDRD) Non-Af (>60) mL/min BUN/Creatinine Ratio (10-20) RATIO Glucose (74-106) mg/dL Lactic Acid 4.2 H* (0.4-2.0) mmol/L Calcium (8.5-10.1) mg/dL Phosphorus 3.3 (2.5-4.9) mg/dL Magnesium 1.6 (1.6-2.6) mg/dL Total Bilirubin (0.20-1.00) mg/dL AST (15-37) U/L ALT (13-56) U/L Alkaline Phosphatase (45-117) U/L Troponin I 20.300 H* (<0.045) ng/mL Total Protein (6.4-8.2) g/dL Albumin (3.2-5.0) g/dL Globulin (2.2-4.2) g/dL Albumin/Globulin Ratio (0.9-2.4) RATIO Triglycerides ( - 199) mg/dL Cholesterol (200) mg/dL LDL Cholesterol (0-130) mg/dL VLDL Cholesterol (5-40) mg/dL HDL Cholesterol (40 - ) mg/dL Ur Random Sodium (Not Establ.) mmol/L Urine Creatinine (NO RANGE EST.) mg/dL MRSA (PCR) (Negative) 01/28/19 01/28/19 01/28/19 Range/Units 21:35 21:35 21:35 WBC 14.7 H (4.4-11.0) K/mm3 RBC 5.52 H (4.2-5.4) M/mm3 Hgb 14.0 (12.0-15.0) g/dL Hct 45.4 (37-47) % MCV 82.2 (81-99) fL MCH 25.4 L (27.0-32.0) pg MCHC 30.8 L (32-36) g/dL RDW Std Deviation 50.4 H (35.1-43.9) fl RDW Coeff of Deborah 17.2 H (11.6-14.6) % Plt Count 170 (150-450) K/mm3 MPV 10.3 (6.2-12.0) fl Immature Gran % (Auto) 0.600 (0.0-0.9) % Neut % (Auto) 96.4 H (47-70) % Lymph % (Auto) 1.6 L (19-41) % Anderson % (Auto) 0.3 (0-10) % Eos % (Auto) 0.8 (0-5) % Baso % (Auto) 0.3 (0-1) % Absolute Neuts (auto) 14.1 H (2.0-7.7) X10^3/uL Absolute Lymphs (auto) 0.24 L (0.83-4.51) X10^3/uL Nucleated RBC % 0 (0-5) % Differential Comment SCANNED PT 16.5 H (11.7-14.9) SECONDS INR 1.4 APTT 44.7 H (24.1-36.2) Seconds Sodium 141 (136-145) mmol/L Potassium 3.0 L (3.5-5.1) mmol/L Chloride 107 (98-107) mmol/L Carbon Dioxide 21.0 (21.0-32.0) mmol/L Anion Gap 13 (5-15) BUN 26 H (7-18) mg/dL Creatinine 1.53 H (0.55-1.02) mg/dL Estim Creat Clear Calc 38.89 ml/min Est GFR (MDRD) Af Amer 45 L (>60) mL/min Est GFR (MDRD) Non-Af 37 L (>60) mL/min BUN/Creatinine Ratio 17.0 (10-20) RATIO Glucose 135 H (74-106) mg/dL Lactic Acid (0.4-2.0) mmol/L Calcium 8.7 (8.5-10.1) mg/dL Phosphorus (2.5-4.9) mg/dL Magnesium (1.6-2.6) mg/dL Total Bilirubin 0.70 (0.20-1.00) mg/dL AST 150 H (15-37) U/L ALT 52 (13-56) U/L Alkaline Phosphatase 124 H (45-117) U/L Troponin I 22.900 H* (<0.045) ng/mL Total Protein 6.1 L (6.4-8.2) g/dL Albumin 2.7 L (3.2-5.0) g/dL Globulin 3.4 (2.2-4.2) g/dL Albumin/Globulin Ratio 0.8 L (0.9-2.4) RATIO Triglycerides ( - 199) mg/dL Cholesterol (200) mg/dL LDL Cholesterol (0-130) mg/dL VLDL Cholesterol (5-40) mg/dL HDL Cholesterol (40 - ) mg/dL Ur Random Sodium (Not Establ.) mmol/L Urine Creatinine (NO RANGE EST.) mg/dL MRSA (PCR) (Negative) Diagnostic Data: Diagnostic Data Chest X-Ray 01/28/19 21:15 IMPRESSION: Little if any significant change. Atelectasis or scarring in both lower lobes worse on the left. Electronically Signed: Bang Wyatt MD at 21:34 EST , Service support , Chest CTA 01/28/19 22:36 IMPRESSION: Positive for pulmonary emboli on the right descending pulmonary artery into the right middle lobe. Atelectasis and/or infiltrate in both lower lobes worse on the left. N.B. : The above information has been verbally conveyed by Bang Wyatt MD to Dana Ratliff MD, on 01/28/2019 23:44:23 (ET). Electronically Signed: Bang Wyatt MD at 23:45 EST , Service support , ADDENDUM: 01/28/19 2352 IMPRESSION: Positive for pulmonary emboli on the right descending pulmonary artery into the right middle lobe. Atelectasis and/or infiltrate in both lower lobes worse on the left. N.B. : The above information has been verbally conveyed by Bang Wyatt MD to Dana Ratliff MD, on 01/28/2019 23:44:23 (ET). Electronically Signed: Bang yWatt MD at 23:45 EST , Service support , Assessment and Plan 1) Septic shock. Assessment: -Likely secondary to UTI. -Prelim urine culture from urgent care shows Pseudomonas. Sensitivities pending. -On Zosyn. -Clinically stable. Plan: -Continue broad spectrum antibiotics with judicious IVFs because of CM. -Awaiting repeat urine culture. -I'll get sensitivity panel from [facility] on chart as soon as completed. 2) Cardiomyopathy. Assessment: -No h/o cardiovascular disease. -Rather striking elevation of troponin I on presentation. -Echo suggests severe LV dysfunction. -Suspect all secondary to sepsis causing 'global' leak troponin. Plan: -Management per cardiology. -Potential cath Thursday. 3) PE Assessment: -New diagnosis. -No contraindication for anticoagulation. Plan: -Continue IV unfractionated heparin. 4) Metastatic kidney cancer. Assessment: -Only known active site of disease is metastasis to T10 that has been stable on Torisel. Plan: -Will continue therapy once more stable. Medications: Medications Added to Medication List This Visit Category Date Time Status 0.9% Normal Saline 1,000 ml Med 01/29/19 11:35 Active IV 75 mls/hr Acetaminophen [Tylenol] Med 01/29/19 11:34 Active 1,000 mg PO Q8H PRN PRN Aspirin [Aspirin, Baby] Med 01/30/19 08:00 Active 81 mg PO DAILY@0800 Piperacil/Tazobactam [Zosyn] 3.375 gm Med 01/29/19 06:00 Active 0.9% Normal Saline 50 ml IV Q8 Vancomycin IV [Vancomycin] Med 01/29/19 23:00 Active 1,000 mg in 200 ml IV Q24H Primary Care Provider: Aaron Chand MD Referring Provider:
--- NOTE | 2019-01-29 15:02 | CON.PCM_ITS ---
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 She complained of suprapubic pressure often noted with her frequent UTIs. She was treated with fluconazole and nitrofuratoin last week. She has been on chemotherapy, immunotherapy weekly managed by Dr. Valiente. She has swelling with chemotherapy with nausea but overall has tolerated it well. Creatinine on 12/12/18 was 0.96, 1.53 on admit 01/28 to 1.39 today. She had CTA on 01/28 that reported PE in right lung. She had leukocytosis and cultures sent. She was started on iv vanco and pip/tazo. She remains hypotensive requiring pressors despite fluid resuscitation. BP 60-70's systolic. She is on chronic prednisone at home, now on iv steroids. Echo performed on admit showed LVEF 15% with positive troponins. Cardiology consulted with tentative plans for heart cath on Thursday. Pt denied chest pain or history of CAD. She has noticed dyspnea and discomfort in right chest wall with deep breath. She was started on heparin drip and fentanyl for pain. - Allergies Allergies: Allergies No Known Allergies Allergy (Verified 01/28/19 20:53) - Current Medications Current Medications: Current Medications Acetaminophen (Tylenol) 1,000 mg PO Q8H PRN PRN PRN Reason: Pain 1-10 or Fever Albuterol Sulfate (Ventolin Aerosols) 2.5 mg INHALATION Q2H PRN PRN PRN Reason: dyspnea, wheezing Aspirin (Aspirin, Baby) 81 mg PO DAILY@0800 ERNESTO Dextrose (D50w Syringe) 0 gm IV X1 PRN; Protocol PRN Reason: Hypoglycemia Fentanyl Citrate (Sublimaze (100mcg Ampule)) 25 mcg IV Q2H PRN PRN PRN Reason: Pain Score 4-10/10 Last Admin: 01/29/19 11:49 Dose: 25 mcg Documented by: Glucagon () 1 mg IM .X1 PRN PRN Reason: Hypoglycemia Heparin Sodium (Beef Lung) () 50 units IV UD PRN PRN Reason: Port-a-Cath (VAD)Heparin Flush Heparin Sodium (Porcine) (Heparin Na) 0 unit IV UD PRN; Protocol Hydrocortisone Sodium Succinate (Solu-Cortef) 50 mg IV Q6 ERNESTO Last Admin: 01/29/19 11:51 Dose: 50 mg Documented by: Heparin Sodium/Dextrose () 25,000 units in 250 mls @ 10 mls/hr IV .Q25H ERNESTO; Protocol Last Titration: 01/29/19 08:00 Dose: 7 mls/hr Documented by: Vancomycin IV Pharmacy to Dose (1 ea/ Sodium Chloride) 500 mls @ 250 mls/hr IV X1 PRN; Protocol PRN Reason: Rx to Dose Piperacillin Sod/Tazobactam (Sod 3.375 gm/ Sodium Chloride) 50 mls @ 12.5 mls/hr IV Q8 ERNESTO Last Admin: 01/29/19 14:50 Dose: 12.5 mls/hr Documented by: Sodium Chloride () 250 mls @ 15 mls/hr IV .[id number] PRN PRN Reason: Saline Flush Last Admin: 01/29/19 06:17 Dose: 15 mls/hr Documented by: Vancomycin HCl (Vancomycin) 1,000 mg in 200 mls @ 200 mls/hr IV Q24H ERNESTO Norepinephrine Bitartrate 8 mg (/ Sodium Chloride) 250 mls @ 9.375 mls/hr CONT INF .[id number] [facility]; Protocol Last Admin: 01/29/19 14:42 Dose: 2.67 mcg/min, 5 mls/hr Documented by: Sodium Chloride () 1,000 mls @ 75 mls/hr IV .[id number] ERNESTO Last Admin: 01/29/19 11:51 Dose: 75 mls/hr Documented by: Nitroglycerin (Nitrostat) 0.4 mg SUBLINGUAL Q5M PRN PRN Reason: CARDIAC/CHEST PAIN Ondansetron HCl (Zofran) 4 mg IV Q8H PRN PRN PRN Reason: NAUSEA/VOMITING Last Admin: 01/29/19 12:07 Dose: 4 mg Documented by: Sodium Chloride () 10 - 40 ml IV UD PRN PRN Reason: Port-a-Cath (VAD) Flush Last Admin: 01/29/19 04:08 Dose: 10 ml Documented by: Sodium Chloride (0.9% Nacl (Sterile) Posiflush) 10 - 40 ml IV UD PRN PRN Reason: Port access or dressing change Last Admin: 01/29/19 11:50 Dose: 10 ml Documented by: Sodium Chloride () 10 - 40 ml IV UD PRN PRN Reason: SALINE FLUSH - Past Medical History Past Medical History (Chronic Problems): Chronic Problems Renal carcinoma (Chronic) Chronic pain syndrome (Chronic) - Past Surgical History Surgical History: - - right nephrectomy, Neck surgery with hardware, lumbar surgery with hardware with corrective follow-up surgery, left lower extremity femur surgery with hardware placement secondary to cancerous lesions, cholecystectomy, tonsillectomy, port placement. - Social History Marital Status: Smoking Status: Never smoker Alcohol: None Drugs: None - Family History Maternal History Items: - - Patient with maternal family history of lung cancer, tobacco use history. Paternal History Items: - - Patient with a paternal family history of lung cancer, tobacco use history concurrently. Review of Systems Constitutional: Reports: Anorexia, Chills, Fever, Malaise, Weakness, Fatigue Eyes: Denies: Vision Change HEENT: Denies: Head Aches Respiratory: Reports: Pleuritic Pain, Shortness of Breath, - - pain in right chest wall with breathing. Denies: Cough, Hemoptysis Gastrointestinal: Reports: Diarrhea, Nausea, Vomiting. Denies: Hematemesis, Hematochezia Genitourinary: Reports: - - neurogenic bladder, self caths, sp pressure, urine sediment Musculoskeletal: Reports: Back Pain, Joint stiffness, Joint swelling, - - leg swelling intermittently, RA, - - muscle spasms Skin: Denies: Rash Neurological: Reports: - - paraplegia BLE Psychiatric: Reports: Anxiety, Depression Hematologic/ Lymphatic: Reports: Anemia Patient Problems: Active and Suspected Problems Septic shock (Acute) UTI (urinary tract infection) (Acute) Pneumonia (Acute) KELLEE (acute kidney injury) (Acute) Hypokalemia (Acute) Encephalopathy acute (Acute) - Physical Exam Vitals/I&O's: Vital Signs Temp Pulse Resp BP Pulse Ox 98.1 F 86 17 73/54 L 96 01/29/19 12:00 01/29/19 14:42 01/29/19 14:42 01/29/19 14:42 01/29/19 14:42 Oxygen Flow Rate (L/min) 2 Oxygen Delivery Method Room Air Weight: 71 kg Body Mass Index (BMI) 25.2 Intake and Output for Last 24 Hours 01/27/19 01/28/19 01/29/19 23:59 23:59 23:59 Intake Total 2595.10 / 2595.10 1922.72 / 1922.72 Output Total 425 / 425 Balance 2595.10 / 2595.10 1497.72 / 1497.72 General: Alert, Oriented x3, - - weak, fatigue HEENT: PERRLA, EOMI Oral: Dry Mucosa Lungs: Clear to auscultation Cardiovascular: Regular rate Abdomen: Bowel Sounds Present, Soft, Non Tender Extremities: No edema, Peripheral Pulses Normal Skin: - - multiple tattoos Musculoskeletal: - - muscle paralysis BLE Neurological: - - paralysis BLE Psych/Mental Status: Normal Affect, Appropriate, Alert and oriented to time, place, person, mood and affect Microbiology Past 72 Hours 01/29/19 01:30 Mucosa - Nose Respiratory Panel (PCR) - Final 01/29/19 04:05 Urine Catheter - [place] Legionella Antigen - Final 01/29/19 04:05 Urine Catheter - [place] Streptococcus pneumoniae Antigen (M - Final 01/28/19 21:32 Mucosa - Throat Influenza Types A,B Direct FA (DANNY) - Final Laboratory Results 01/28/19 21:35: WBC 14.7 H, RBC 5.52 H, Hgb 14.0, Hct 45.4, MCV 82.2, MCH 25.4 L , MCHC 30.8 L, RDW Std Deviation 50.4 H, RDW Coeff of Deborah 17.2 H, Plt Count 170, MPV 10.3, Immature Gran % (Auto) 0.600, Neut % (Auto) 96.4 H, Lymph % (Auto) 1.6 L, [place] % (Auto) 0.3, Eos % (Auto) 0.8, Baso % (Auto) 0.3, Absolute Neuts (auto) 14.1 H, Absolute Lymphs (auto) 0.24 L, Nucleated RBC % 0, Differential Comment SCANNED 01/28/19 21:35: PT 16.5 H, INR 1.4, APTT 44.7 H 01/28/19 21:35: Sodium 141, Potassium 3.0 L, Chloride 107, Carbon Dioxide 21.0, Anion Gap 13, BUN 26 H, Creatinine 1.53 H, Estim Creat Clear Calc 38.89, Est GFR (MDRD) Af Amer 45 L, Est GFR (MDRD) Non-Af 37 L, BUN/Creatinine Ratio 17.0, Glucose 135 H, Calcium 8.7, Total Bilirubin 0.70, AST 150 H, ALT 52, Alkaline Phosphatase 124 H, Troponin I 22.900 H*, Total Protein 6.1 L, Albumin 2.7 L, Globulin 3.4, Albumin/Globulin Ratio 0.8 L 01/28/19 21:35: Lactic Acid 4.2 H* 01/29/19 00:12: Phosphorus 3.3, Magnesium 1.6 01/29/19 00:12: Troponin I 20.300 H* 01/29/19 02:03: Lactic Acid 2.7 H 01/29/19 03:35: WBC 12.4 H, RBC 5.06, Hgb 12.5, Hct 41.6, MCV 82.2, MCH 24.7 L, MCHC 30.0 L, RDW Std Deviation 50.4 H, RDW Coeff of Deborah 17.2 H, Plt Count 151, MPV 9.9, Immature Gran % (Auto) 0.600, Neut % (Auto) 96.2 H, Lymph % (Auto) 2.2 L, [place] % (Auto) 0.4, Eos % (Auto) 0.4, Baso % (Auto) 0.2, Absolute Neuts (auto) 12.0 H, Absolute Lymphs (auto) 0.27 L, Nucleated RBC % 0 01/29/19 03:35: Sodium 140, Potassium 4.2, Chloride 109 H, Carbon Dioxide 21.0, Anion Gap 10, BUN 25 H, Creatinine 1.39 H, Estim Creat Clear Calc 42.81, Est GFR (MDRD) Af Amer 51 L, Est GFR (MDRD) Non-Af 42 L, BUN/Creatinine Ratio 18.0, Glucose 185 H, Calcium 7.5 L, Total Bilirubin 0.80, AST 197 H, ALT 68 H, Alkaline Phosphatase 116, Total Protein 5.1 L, Albumin 2.1 L, Globulin 3.0, Albumin/Globulin Ratio 0.7 L, Triglycerides 143, Cholesterol 147, LDL Cholesterol 60, VLDL Cholesterol 29, HDL Cholesterol 58 01/29/19 03:35: Troponin I 12.900 H* 01/29/19 03:35: APTT 119.2 H* 01/29/19 04:05: Urine Creatinine 74.60 01/29/19 04:05: Ur Random Sodium 25 01/29/19 06:40: MRSA (PCR) Negative 01/29/19 10:45: APTT 55.3 H Clinical Impression(s) from Imaging Studies Chest X-Ray 01/28/19 21:15 IMPRESSION: Little if any significant change. Atelectasis or scarring in both lower lobes worse on the left. Electronically Signed: Bang Wyatt MD at 21:34 EST , Service support , Chest CTA 01/28/19 22:36 IMPRESSION: Positive for pulmonary emboli on the right descending pulmonary artery into the right middle lobe. Atelectasis and/or infiltrate in both lower lobes worse on the left. N.B. : The above information has been verbally conveyed by Bang Wyatt MD to Dana Ratliff MD, on 01/28/2019 23:44:23 (ET). Electronically Signed: Bang Wyatt MD at 23:45 EST , Service support , ADDENDUM: 01/28/19 2352 IMPRESSION: Positive for pulmonary emboli on the right descending pulmonary artery into the right middle lobe. Atelectasis and/or infiltrate in both lower lobes worse on the left. N.B. : The above information has been verbally conveyed by Bang Wyatt MD to Dana Ratliff MD, on 01/28/2019 23:44:23 (ET). Electronically Signed: Bnag Wyatt MD at 23:45 EST , Service support , Renal Ultrasound 01/29/19 00:52 IMPRESSION: Surgically absent right kidney. Normal appearance of the left kidney. Electronically Signed: Bang Wyatt MD at 16:16 EST , Service support , Current Medications Acetaminophen (Tylenol) 1,000 mg PO Q8H PRN PRN PRN Reason: Pain 1-10 or Fever Albuterol Sulfate (Ventolin Aerosols) 2.5 mg INHALATION Q2H PRN PRN PRN Reason: dyspnea, wheezing Aspirin (Aspirin, Baby) 81 mg PO DAILY@0800 [facility] Dextrose (D50w Syringe) 0 gm IV X1 PRN; Protocol PRN Reason: Hypoglycemia Fentanyl Citrate (Sublimaze (100mcg Ampule)) 25 mcg IV Q2H PRN PRN PRN Reason: Pain Score 4-10/10 Last Admin: 01/29/19 11:49 Dose: 25 mcg Documented by: Glucagon () 1 mg IM .X1 PRN PRN Reason: Hypoglycemia Heparin Sodium (Beef Lung) () 50 units IV UD PRN PRN Reason: Port-a-Cath (VAD)Heparin Flush Heparin Sodium (Porcine) (Heparin Na) 0 unit IV UD PRN; Protocol Hydrocortisone Sodium Succinate (Solu-Cortef) 50 mg IV Q6 ERNESTO Last Admin: 01/29/19 11:51 Dose: 50 mg Documented by: Heparin Sodium/Dextrose () 25,000 units in 250 mls @ 10 mls/hr IV .Q25H ERNESTO; Protocol Last Titration: 01/29/19 08:00 Dose: 7 mls/hr Documented by: Vancomycin IV Pharmacy to Dose (1 ea/ Sodium Chloride) 500 mls @ 250 mls/hr IV X1 PRN; Protocol PRN Reason: Rx to Dose Piperacillin Sod/Tazobactam (Sod 3.375 gm/ Sodium Chloride) 50 mls @ 12.5 mls/hr IV Q8 ERNESTO Last Admin: 01/29/19 14:50 Dose: 12.5 mls/hr Documented by: Sodium Chloride () 250 mls @ 15 mls/hr IV .[id number] PRN PRN Reason: Saline Flush Last Admin: 01/29/19 06:17 Dose: 15 mls/hr Documented by: Vancomycin HCl (Vancomycin) 1,000 mg in 200 mls @ 200 mls/hr IV Q24H ERNESTO Norepinephrine Bitartrate 8 mg (/ Sodium Chloride) 250 mls @ 9.375 mls/hr CONT INF .[id number] ERNESTO; Protocol Last Admin: 01/29/19 14:42 Dose: 2.67 mcg/min, 5 mls/hr Documented by: Sodium Chloride () 1,000 mls @ 75 mls/hr IV .[id number] ERNESTO Last Admin: 01/29/19 11:51 Dose: 75 mls/hr Documented by: Nitroglycerin (Nitrostat) 0.4 mg SUBLINGUAL Q5M PRN PRN Reason: CARDIAC/CHEST PAIN Ondansetron HCl (Zofran) 4 mg IV Q8H PRN PRN PRN Reason: NAUSEA/VOMITING Last Admin: 01/29/19 12:07 Dose: 4 mg Documented by: Sodium Chloride () 10 - 40 ml IV UD PRN PRN Reason: Port-a-Cath (VAD) Flush Last Admin: 01/29/19 04:08 Dose: 10 ml Documented by: Sodium Chloride (0.9% Nacl (Sterile) Posiflush) 10 - 40 ml IV UD PRN PRN Reason: Port access or dressing change Last Admin: 01/29/19 11:50 Dose: 10 ml Documented by: Sodium Chloride () 10 - 40 ml IV UD PRN PRN Reason: SALINE FLUSH Assessment/Plan All Active Problems Septic shock (Acute) UTI (urinary tract infection) (Acute) Pneumonia (Acute) KELLEE (acute kidney injury) (Acute) Hypokalemia (Acute) Encephalopathy acute (Acute) 1. KELLEE likely due to sepsis, contrast nephropathy in presence of dehydration, cardiorenal syndrome LVEF 15% in solitary kidney. Baseline creatinine 0.9 in December 1.53 on admit to 1.39 today. Continue to monitor renal fxn, maintain SBP >90 for renal perfusion. No urgent need for dialysis at this time. 2. 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 3. Acute RML pulmonary embolus on anticoagulation 4. Paralysis with neurogenic bladder self caths with frequent UTIs 5. NSTEMI with +trop global cardiomyopathy EF 15%, cardiogenic shock. Cardiology consulted. 6. Septic shock with leukocytosis in immuncompromised host. Await cx, on stress dose steroids, pressors, iv antibx, iv hydration. 7. Hx RA on prednisone 5mg daily 8. Monitor vanco levels
--- NOTE | 2019-01-29 15:16 | CM.UR ---
RN CM Assessment Introduced role of RN CM to patient. Patient is alert and able to participate in RN CM Assessment. Care providers, pharmacy, and demographics verified. at bedside. Presentation: nausea & fever Admit Dx: Septic shock, UTI, EF 15% Re-Admit: no Barriers/Issues: none PCP: johnny Insurance: [employer] PPO LNOK: Lexii LW/HPOA: None. States did once before but no one notarized it or witnessed it. Would like to do. Notified ADITYA Castro Living Arrangements: Lives with . States he modified the house to work with her being in w/c, when that happened. ADL?s: She needs help with Lower body bathing and dressing. Needs help with wiping. helps with laundry and cleaning. She does cook. Has TRAVEL PROFESSIONAL 5 days a week to help with bathing, getting dressed and self cath. she believes HHC is from [place]. Transportation: drives DME: Slide board, manual w/c, power w/c, hospital bed, Raised toilet seat, tub bench, grab bars. DME co: Have been using [facility] for most DME but states they haven't been very happy with them lately. [facility]: [facility]: [facility] Goal: Return Home. DC PLAN: To be determined. Garth Butler RN, CCM.
[2019-01-29 17:06] LABS: Partial Thromboplast Time 66.9 Seconds (24.1-36.2)
--- NOTE | 2019-01-29 20:21 | CASEMGMT ---
Social Work Consult: Advanced Directives Informant: SHERRON Aceves CM Met with patient and patient spouse in room. Introduced self as well as social media marketing manager role. Broached topic of advanced directives. Health Care Power of Shovel Engineer and Living Will completed. Patient nominating patient spouse, Shultz as HCPOA. Originals provided to patient and copies placed on patient chart. All questions answered. Abbi Kirkland MSW, JESUS
[2019-01-29] MEDS: Acetaminophen 500 MG Tablet 1000 MG PO (21:54)
[2019-01-29] MEDS: Baclofen 10 MG Tablet 5 MG PO (21:55)
[2019-01-29] MEDS: TITRATION PARAMETER CHANGE 1 EACH IV (22:00)
[2019-01-29 23:12] LABS: Mucous, Urine 0 SEEN /hpf (<or=2+)
[2019-01-29 23:14] LABS: Color, Urine Yellow (Yellow); Glucose, Dipstick Normal (Normal); Ketone-Dipstick 5 mg/dl (Negative); Leukocyte Esterase-Dipstick 100 /ul (Negative); Nitrite-Dipstick Negative (Negative); Occult Blood-Urine 150 /ul (Negative); Protein-Dipstick 30 mg/dl (Negative); Urine Bilirubin Dipstick Negative (Negative); Urine Clarity Sl. Cloudy (Clear); Urine Urobilinogen Normal (Normal)
[2019-01-29 23:21] LABS: Red Blood Cells-Urine 10-25 SEEN /hpf (0-5); White Blood Cells 25-50 SEEN /hpf (0-5)
[2019-01-29 23:23] LABS: Bacteria 1+ /hpf (None Seen); Squamous Epithelial Cells - UA 0-5 SEEN /hpf (5-10); Transitional Epithelial - Ur 0-5 SEEN /hpf (0-5); White Cell Cast 0-5 SEEN /lpf (None Seen)
[2019-01-30] VITALS (39 sets, daily range): BP systolic 79–107; BP diastolic 55–82; PULSE 62–91; RESP 12–22; TEMP 35.7–37.4; O2SAT 96–98
[2019-01-30] MEDS: 0.9% Normal Saline 1,000 ML 75 ML IV ×2 (00:01→14:49)
[2019-01-30] MEDS: Vancomycin IV 1,000 MG/200 ML BAG 200 MG IV ×2 (00:05→22:42)
[2019-01-30] MEDS: HEPARIN/D5w 25,000 UNITS 25,000 UNITS/250 ML IV.SOLN. 7 UNITS IV (00:06)
[2019-01-30] MEDS: Hydrocortisone Sod Succinate 100 MG/2 ML Vial 50 MG IV ×5 (00:07→23:21)
[2019-01-30] MEDS: Temazepam 15 MG Capsule 30 MG PO ×2 (00:16→22:42)
[2019-01-30] MEDS: Baclofen 10 MG Tablet 5 MG PO ×3 (05:49→21:01)
[2019-01-30 06:17] LABS: Absolute Lymphocyte Count 0.35 X10^3/uL (0.83-4.51); Absolute Neutrophil Count 8.3 X10^3/uL (2.0-7.7); Basophil# 0.01 X10^3/uL; Basophil% 0.1 % (0-1); Eosinophil# 0.07 X10^3/uL; Eosinophils% 0.8 % (0-5); Hematocrit 36.8 % (37-47); Hemoglobin 11.4 g/dL (12.0-15.0); Lymphocyte # 0.35 X10^3/ul (4.0); Lymphocyte % 3.9 % (19-41); Mean Corpuscular Hgb 24.7 pg (27.0-32.0); Mean Corpuscular Volume 79.8 fL (81-99); Mean Platelet Vol. 10.3 fl (6.2-12.0); Monocyte# 0.14 X10^3/uL; Monocyte% 1.6 % (0-10); NRBC Flagged by Analyzer 0 % (0-5); Neutrophil % 91.8 % (47-70); POSITIVE DIFFERENTIAL YES; POSITIVE MORPHOLOGY YES; Platelet Count 127 K/mm3 (150-450); RBC Distribution Width CV 17.2 % (11.6-14.6); RBC Distribution Width SD 49.3 fl (35.1-43.9); Red Blood Count 4.61 M/mm3 (4.2-5.4)
--- NOTE | 2019-01-30 06:19 | PCM.PN.INT ---
Subjective: The patient was seen and examined at the bedside this morning. Events from the last 24 hours have been reviewed. The patient is currently afebrile, but remains on Levophed at 3 mcg/min to maintain hemodynamic stability. The patient is currently documented to be overall net +5.3 L for the admission. She does report that she was able to tolerate p.o. intake last evening without complication. Objective: The patient's most recent lab work, culture data and imaging studies have all been personally reviewed. CTA chest revealed right-sided pulmonary emboli along with potential bibasilar infiltrates. Surface echocardiogram revealed normal LV size with an ejection fraction of 15% with severe segmental systolic dysfunction and stage I diastolic dysfunction. Rapid influenza screen was negative. Respiratory viral panel was negative. Strep and urine Legionella antigens were negative. Blood and urine cultures are pending. General: Alert, Cooperative, No apparent distress HEENT: Atraumatic, PERRLA, Normocephalic Oral: No Gingival or Mucosal Lesions/ Ulcerations Neck: Supple, No Nodes, Trachea Midline Lungs: No rhonchi, No wheeze, No rales, Diminished, - - Chest wall port in place Cardiovascular: Regular rate, Regular Rhythm, Normal S1, Normal S2 Abdomen: Bowel Sounds Present, Soft, Non Tender Extremities: No clubbing, No cyanosis, No edema Skin: No breakdown Musculoskeletal: No Tenderness to Palpation of Joints or Extremities Lymphatic: No Cervical, Supraclavicular, or Inguinal Adenopathy Neurological: Neuro grossly intact, - - Baseline paraplegia Psych/Mental Status: Normal Affect, Appropriate Vital Signs Temp Pulse Resp BP Pulse Ox 96.2 F L 62 14 92/62 97 01/30/19 04:00 01/30/19 05:00 01/30/19 05:00 01/30/19 05:00 01/30/19 05:00 Oxygen Flow Rate (L/min) 2 Oxygen Delivery Method Room Air Weight: 164 lb 10.965 oz Body Mass Index (BMI) 25.2 Intake and Output for Last 24 Hours 01/28/19 01/29/19 01/30/19 23:59 23:59 23:59 Intake Total 2595.10 / 2595.10 2301.53 / 2544.33 1567.55 / 1567.55 Output Total 425 / 1125 700 / 700 Balance 2595.10 / 2595.10 1876.53 / 1419.33 867.55 / 867.55 Labs (Last 48 Hours) 01/28/19 01/28/19 01/28/19 21:35 21:35 21:35 WBC 14.7 H RBC 5.52 H Hgb 14.0 Hct 45.4 MCV 82.2 MCH 25.4 L MCHC 30.8 L RDW Std Deviation 50.4 H RDW Coeff of Deborah 17.2 H Plt Count 170 MPV 10.3 Immature Gran % (Auto) 0.600 Neut % (Auto) 96.4 H Lymph % (Auto) 1.6 L [place] % (Auto) 0.3 Eos % (Auto) 0.8 Baso % (Auto) 0.3 Absolute Neuts (auto) 14.1 H Absolute Lymphs (auto) 0.24 L Nucleated RBC % 0 Differential Comment SCANNED PT 16.5 H INR 1.4 APTT 44.7 H Sodium 141 Potassium 3.0 L Chloride 107 Carbon Dioxide 21.0 Anion Gap 13 BUN 26 H Creatinine 1.53 H Estim Creat Clear Calc 38.89 Est GFR (MDRD) Af Amer 45 L Est GFR (MDRD) Non-Af 37 L BUN/Creatinine Ratio 17.0 Glucose 135 H Lactic Acid Calcium 8.7 Phosphorus Magnesium Total Bilirubin 0.70 AST 150 H ALT 52 Alkaline Phosphatase 124 H Troponin I 22.900 H* Total Protein 6.1 L Albumin 2.7 L Globulin 3.4 Albumin/Globulin Ratio 0.8 L Triglycerides Cholesterol LDL Cholesterol VLDL Cholesterol HDL Cholesterol Urine Color Urine Clarity Urine pH Ur Specific Aiken Urine Protein Urine Glucose (UA) Urine Ketones Urine Occult Blood Urine Nitrite Urine Bilirubin Urine Urobilinogen Ur Leukocyte Esterase Urine RBC Urine WBC Ur Squamous Epith Cells Ur Transition Epith Cell Urine Bacteria WBC Casts Urine Mucus Ur Random Sodium Urine Creatinine MRSA (PCR) 01/28/19 01/29/19 01/29/19 21:35 00:12 00:12 WBC RBC Hgb Hct MCV MCH MCHC RDW Std Deviation RDW Coeff of Deborah Plt Count MPV Immature Gran % (Auto) Neut % (Auto) Lymph % (Auto) [place] % (Auto) Eos % (Auto) Baso % (Auto) Absolute Neuts (auto) Absolute Lymphs (auto) Nucleated RBC % Differential Comment PT INR APTT Sodium Potassium Chloride Carbon Dioxide Anion Gap BUN Creatinine Estim Creat Clear Calc Est GFR (MDRD) Af Amer Est GFR (MDRD) Non-Af BUN/Creatinine Ratio Glucose Lactic Acid 4.2 H* Calcium Phosphorus 3.3 Magnesium 1.6 Total Bilirubin AST ALT Alkaline Phosphatase Troponin I 20.300 H* Total Protein Albumin Globulin Albumin/Globulin Ratio Triglycerides Cholesterol LDL Cholesterol VLDL Cholesterol HDL Cholesterol Urine Color Urine Clarity Urine pH Ur Specific Aiken Urine Protein Urine Glucose (UA) Urine Ketones Urine Occult Blood Urine Nitrite Urine Bilirubin Urine Urobilinogen Ur Leukocyte Esterase Urine RBC Urine WBC Ur Squamous Epith Cells Ur Transition Epith Cell Urine Bacteria WBC Casts Urine Mucus Ur Random Sodium Urine Creatinine MRSA (PCR) 01/29/19 01/29/19 01/29/19 02:03 03:35 03:35 WBC 12.4 H RBC 5.06 Hgb 12.5 Hct 41.6 MCV 82.2 MCH 24.7 L MCHC 30.0 L RDW Std Deviation 50.4 H RDW Coeff of Deborah 17.2 H Plt Count 151 MPV 9.9 Immature Gran % (Auto) 0.600 Neut % (Auto) 96.2 H Lymph % (Auto) 2.2 L [place] % (Auto) 0.4 Eos % (Auto) 0.4 Baso % (Auto) 0.2 Absolute Neuts (auto) 12.0 H Absolute Lymphs (auto) 0.27 L Nucleated RBC % 0 Differential Comment PT INR APTT Sodium 140 Potassium 4.2 Chloride 109 H Carbon Dioxide 21.0 Anion Gap 10 BUN 25 H Creatinine 1.39 H Estim Creat Clear Calc 42.81 Est GFR (MDRD) Af Amer 51 L Est GFR (MDRD) Non-Af 42 L BUN/Creatinine Ratio 18.0 Glucose 185 H Lactic Acid 2.7 H Calcium 7.5 L Phosphorus Magnesium Total Bilirubin 0.80 AST 197 H ALT 68 H Alkaline Phosphatase 116 Troponin I Total Protein 5.1 L Albumin 2.1 L Globulin 3.0 Albumin/Globulin Ratio 0.7 L Triglycerides 143 Cholesterol 147 LDL Cholesterol 60 VLDL Cholesterol 29 HDL Cholesterol 58 Urine Color Urine Clarity Urine pH Ur Specific Aiken Urine Protein Urine Glucose (UA) Urine Ketones Urine Occult Blood Urine Nitrite Urine Bilirubin Urine Urobilinogen Ur Leukocyte Esterase Urine RBC Urine WBC Ur Squamous Epith Cells Ur Transition Epith Cell Urine Bacteria WBC Casts Urine Mucus Ur Random Sodium Urine Creatinine MRSA (PCR) 01/29/19 01/29/19 01/29/19 03:35 03:35 04:05 WBC RBC Hgb Hct MCV MCH MCHC RDW Std Deviation RDW Coeff of Deborah Plt Count MPV Immature Gran % (Auto) Neut % (Auto) Lymph % (Auto) [place] % (Auto) Eos % (Auto) Baso % (Auto) Absolute Neuts (auto) Absolute Lymphs (auto) Nucleated RBC % Differential Comment PT INR APTT 119.2 H* Sodium Potassium Chloride Carbon Dioxide Anion Gap BUN Creatinine Estim Creat Clear Calc Est GFR (MDRD) Af Amer Est GFR (MDRD) Non-Af BUN/Creatinine Ratio Glucose Lactic Acid Calcium Phosphorus Magnesium Total Bilirubin AST ALT Alkaline Phosphatase Troponin I 12.900 H* Total Protein Albumin Globulin Albumin/Globulin Ratio Triglycerides Cholesterol LDL Cholesterol VLDL Cholesterol HDL Cholesterol Urine Color Yellow Urine Clarity Sl. Cloudy Urine pH 5.0 Ur Specific Aiken 1.010 Urine Protein 30 H Urine Glucose (UA) Normal Urine Ketones 5 H Urine Occult Blood 150 H Urine Nitrite Negative Urine Bilirubin Negative Urine Urobilinogen Normal Ur Leukocyte Esterase 100 H Urine RBC 10-25 SEEN Urine WBC 25-50 SEEN Ur Squamous Epith Cells 0-5 SEEN Ur Transition Epith Cell 0-5 SEEN Urine Bacteria 1+ WBC Casts 0-5 SEEN Urine Mucus 0 SEEN Ur Random Sodium Urine Creatinine MRSA (PCR) 01/29/19 01/29/19 01/29/19 04:05 04:05 06:40 WBC RBC Hgb Hct MCV MCH MCHC RDW Std Deviation RDW Coeff of Deborah Plt Count MPV Immature Gran % (Auto) Neut % (Auto) Lymph % (Auto) [place] % (Auto) Eos % (Auto) Baso % (Auto) Absolute Neuts (auto) Absolute Lymphs (auto) Nucleated RBC % Differential Comment PT INR APTT Sodium Potassium Chloride Carbon Dioxide Anion Gap BUN Creatinine Estim Creat Clear Calc Est GFR (MDRD) Af Amer Est GFR (MDRD) Non-Af BUN/Creatinine Ratio Glucose Lactic Acid Calcium Phosphorus Magnesium Total Bilirubin AST ALT Alkaline Phosphatase Troponin I Total Protein Albumin Globulin Albumin/Globulin Ratio Triglycerides Cholesterol LDL Cholesterol VLDL Cholesterol HDL Cholesterol Urine Color Urine Clarity Urine pH Ur Specific Aiken Urine Protein Urine Glucose (UA) Urine Ketones Urine Occult Blood Urine Nitrite Urine Bilirubin Urine Urobilinogen Ur Leukocyte Esterase Urine RBC Urine WBC Ur Squamous Epith Cells Ur Transition Epith Cell Urine Bacteria WBC Casts Urine Mucus Ur Random Sodium 25 Urine Creatinine 74.60 MRSA (PCR) Negative 01/29/19 01/29/19 01/30/19 10:45 16:05 05:30 WBC Pending RBC Pending Hgb Pending Hct Pending MCV Pending MCH Pending MCHC Pending RDW Std Deviation Pending RDW Coeff of Deborah Pending Plt Count Pending MPV Immature Gran % (Auto) Neut % (Auto) Pending Lymph % (Auto) [place] % (Auto) Eos % (Auto) Baso % (Auto) Absolute Neuts (auto) Pending Absolute Lymphs (auto) Nucleated RBC % Differential Comment PT INR APTT 55.3 H 66.9 H Sodium Potassium Chloride Carbon Dioxide Anion Gap BUN Creatinine Estim Creat Clear Calc Est GFR (MDRD) Af Amer Est GFR (MDRD) Non-Af BUN/Creatinine Ratio Glucose Lactic Acid Calcium Phosphorus Magnesium Total Bilirubin AST ALT Alkaline Phosphatase Troponin I Total Protein Albumin Globulin Albumin/Globulin Ratio Triglycerides Cholesterol LDL Cholesterol VLDL Cholesterol HDL Cholesterol Urine Color Urine Clarity Urine pH Ur Specific Aiken Urine Protein Urine Glucose (UA) Urine Ketones Urine Occult Blood Urine Nitrite Urine Bilirubin Urine Urobilinogen Ur Leukocyte Esterase Urine RBC Urine WBC Ur Squamous Epith Cells Ur Transition Epith Cell Urine Bacteria WBC Casts Urine Mucus Ur Random Sodium Urine Creatinine MRSA (PCR) 01/30/19 01/30/19 05:30 05:30 WBC RBC Hgb Hct MCV MCH MCHC RDW Std Deviation RDW Coeff of Deborah Plt Count MPV Immature Gran % (Auto) Neut % (Auto) Lymph % (Auto) [place] % (Auto) Eos % (Auto) Baso % (Auto) Absolute Neuts (auto) Absolute Lymphs (auto) Nucleated RBC % Differential Comment PT INR APTT Pending Sodium Pending Potassium Pending Chloride Pending Carbon Dioxide Pending Anion Gap Pending BUN Pending Creatinine Pending Estim Creat Clear Calc Est GFR (MDRD) Af Amer Pending Est GFR (MDRD) Non-Af Pending BUN/Creatinine Ratio Pending Glucose Pending Lactic Acid Calcium Pending Phosphorus Magnesium Total Bilirubin AST ALT Alkaline Phosphatase Troponin I Total Protein Albumin Globulin Albumin/Globulin Ratio Triglycerides Cholesterol LDL Cholesterol VLDL Cholesterol HDL Cholesterol Urine Color Urine Clarity Urine pH Ur Specific Aiken Urine Protein Urine Glucose (UA) Urine Ketones Urine Occult Blood Urine Nitrite Urine Bilirubin Urine Urobilinogen Ur Leukocyte Esterase Urine RBC Urine WBC Ur Squamous Epith Cells Ur Transition Epith Cell Urine Bacteria WBC Casts Urine Mucus Ur Random Sodium Urine Creatinine MRSA (PCR) Microbiology 01/29/19 01:30 Mucosa - Nose Respiratory Panel (PCR) - Final 01/29/19 04:05 Urine Catheter - Blount Legionella Antigen - Final 01/29/19 04:05 Urine Catheter - Blount Streptococcus pneumoniae Antigen (M - Final 01/28/19 21:32 Mucosa - Throat Influenza Types A,B Direct FA (DANNY) - Final Clinical Impression(s) from Imaging Studies Chest X-Ray 01/28/19 21:15 IMPRESSION: Little if any significant change. Atelectasis or scarring in both lower lobes worse on the left. Electronically Signed: Bang Wyatt MD at 21:34 EST , Service support , Chest CTA 01/28/19 22:36 IMPRESSION: Positive for pulmonary emboli on the right descending pulmonary artery into the right middle lobe. Atelectasis and/or infiltrate in both lower lobes worse on the left. N.B. : The above information has been verbally conveyed by Bang Wyatt MD to Dana Ratliff MD, on 01/28/2019 23:44:23 (ET). Electronically Signed: Bang Wyatt MD at 23:45 EST , Service support , ADDENDUM: 01/28/19 2352 IMPRESSION: Positive for pulmonary emboli on the right descending pulmonary artery into the right middle lobe. Atelectasis and/or infiltrate in both lower lobes worse on the left. N.B. : The above information has been verbally conveyed by Bang Wyatt MD to Dana Ratliff MD, on 01/28/2019 23:44:23 (ET). Electronically Signed: Bang Wyatt MD at 23:45 EST , Service support , Renal Ultrasound 01/29/19 00:52 IMPRESSION: Surgically absent right kidney. Normal appearance of the left kidney. Electronically Signed: Bang Wyatt MD at 16:16 EST , Service support , Medical Necessity - Tobacco Use Smoking Status: Never smoker Tobacco Use: Non-smoker Assessment/Plan All Active Problems Septic shock (Acute) UTI (urinary tract infection) (Acute) Pneumonia (Acute) KELLEE (acute kidney injury) (Acute) Hypokalemia (Acute) Encephalopathy acute (Acute) RECOMMENDATIONS: 1. Continue broad-spectrum antimicrobial coverage, pending infectious work-up. 2. Judicious use of supplemental IV fluids, given depressed ejection fraction. 3. Continue heparin infusion. 4. Continue Levophed and wean to maintain a mean arterial pressure at or above 65 mmHg. 5. Continue stress dose steroids. Weaning can be initiated once the patient is off of vasopressor support. 6. Encourage incentive spirometer use while in bed and mobilize patient as tolerated. IMPRESSIONS: 1. Septic shock Most likely secondary to complicated urinary tract infection. Cultures are currently pending. The patient will be continued on broad-spectrum antimicrobial coverage, pending finalized infectious work-up. She has been adequately volume resuscitated. Continue vasopressor support to maintain a mean arterial pressure at or above 65 mmHg. Once the patient has stabilized from a hemodynamic perspective, stress dose steroids will be weaned. Recommend judicious use of supplemental IV fluids, given the patient's depressed ejection fraction. 2. Acute kidney injury Improved with volume expansion and stabilization of hemodynamics. Likely ischemic ATN in the setting of #1. Blount catheter is currently in place. Continue to monitor urine output. No current indication for renal replacement therapy. 3. NSTEMI/Troponin elevation The patient experienced a treat troponin leak of 22. While the patient did have pulmonary emboli identified on CTA chest, the clot burden noted was not extensive enough that I would expect such an elevated troponin level. The enzyme leak, nevertheless, may be a combination of the pulmonary emboli coupled with the demand of septic shock. A follow-up echocardiogram did reveal significant LV dysfunction with a depressed ejection fraction. Therefore, cardiology is currently following's with tentative plans for catheterization in the near future. 4. Acute pulmonary emboli Continue systemic anticoagulation. 5. Metabolic/infectious encephalopathy Improved with aggressive supportive measures including broad-spectrum antimicrobials and supplemental IV fluids. 6. History of renal cell carcinoma undergoing chemotherapy/baseline paraplegia/chronic pain syndrome Complicates care, management, recovery and prognosis. Dietary advancement per speech therapy recommendations. TIME: 37 minutes of critical care time, independent of procedures, was spent addressing the patient's septic shock secondary to presumptive urinary tract source of infection, acute kidney injury, NSTEMI/troponin elevation, acute pulmonary emboli, metabolic encephalopathy, review of all data and collaboration with the care team. ([id number]) Code Visit [id number]: [id number] Critical care first hour
[2019-01-30 06:34] LABS: Partial Thromboplast Time 100.7 Seconds (24.1-36.2)
[2019-01-30 06:42] LABS: Anion Gap 9 (5-15); BUN 25 mg/dL (7-18); BUN/Creat Ratio 28.1 RATIO (10-20); Calcium,Total 7.7 mg/dL (8.5-10.1); Chloride 114 mmol/L (98-107); Creatinine, Serum 0.89 mg/dL (0.55-1.02); EST Glomerular Filtration Rate 70 mL/min (>60); Est Glom Filt Rate - Afr Amer 85 mL/min (>60); Estimated Creatinine Clearance 66.86 ml/min; Glucose 106 mg/dL (74-106); Potassium 3.7 mmol/L (3.5-5.1); Sodium Level 144 mmol/L (136-145)
[2019-01-30 06:45] LABS: Differential Indicated SCAN CRITERIA MET
--- NOTE | 2019-01-30 08:54 | PN_ITS ---
Patient Problems: Active and Suspected Problems Septic shock (Acute) UTI (urinary tract infection) (Acute) Pneumonia (Acute) KELLEE (acute kidney injury) (Acute) Hypokalemia (Acute) Encephalopathy acute (Acute) Subjective: Patient seen and examined. She had an uneventful night so she did complain of some chills this morning because the room was cold. She had to be put back on Levophed for blood pressure support yesterday. Review of systems otherwise negative. Labs and vitals reviewed. W BC is down to 9 today. Vitals/I&O's: Vital Signs Temp Pulse Resp BP Pulse Ox 96.2 F L 64 13 88/57 L 96 01/30/19 07:00 01/30/19 07:00 01/30/19 07:00 01/30/19 07:00 01/30/19 07:00 Oxygen Flow Rate (L/min) 2 Oxygen Delivery Method Room Air Weight: 164 lb 10.965 oz Body Mass Index (BMI) 25.2 Intake and Output for Last 24 Hours 01/28/19 01/29/19 01/30/19 23:59 23:59 23:59 Intake Total 2595.10 / 2595.10 2301.53 / 2544.33 1684.35 / 1684.35 Output Total 425 / 1125 1000 / 1000 Balance 2595.10 / 2595.10 1876.53 / 1419.33 684.35 / 684.35 General: Alert, Oriented x3, Cooperative, No apparent distress HEENT: Atraumatic, PERRLA, EOMI, Normocephalic Oral: Dry Mucosa Neck: Supple, No JVD, Negative Carotid Bruits, Negative Hepatojugular Reflux, No Nodes Lungs: Clear to auscultation, Normal air movement, No rhonchi, No wheeze, No rales Cardiovascular: Regular rate, Regular Rhythm, Normal S1, Normal S2, No murmurs Abdomen: Bowel Sounds Present, Soft, Non Tender, Non-Distended, No Hepato- splenomegaly Extremities: No clubbing, No cyanosis, No edema, Capillary Refill Less than 3 Seconds Skin: No rashes, No breakdown Musculoskeletal: No Tenderness to Palpation of Joints or Extremities Lymphatic: No Cervical, Supraclavicular, or Inguinal Adenopathy Neurological: Cranial nerves II-XII grossly intact, - - power in LE is 1/5 bilaterally Psych/Mental Status: Normal Affect, Appropriate, Alert and oriented to time, place, person, mood and affect Microbiology Past 72 Hours 01/29/19 01:30 Mucosa - Nose Respiratory Panel (PCR) - Final 01/29/19 04:05 Urine Catheter - [facility] Legionella Antigen - Final 01/29/19 04:05 Urine Catheter - [facility] Streptococcus pneumoniae Antigen (M - Final 01/28/19 21:32 Mucosa - Throat Influenza Types A,B Direct FA (DANNY) - Final Laboratory Results 01/29/19 04:05: Urine Color Yellow, Urine Clarity Sl. Cloudy, Urine pH 5.0, Ur Specific [place] 1.010, Urine Protein 30 H, Urine Glucose (UA) Normal, Urine Ketones 5 H, Urine Occult Blood 150 H, Urine Nitrite Negative, Urine Bilirubin Negative, Urine Urobilinogen Normal, Ur Leukocyte Esterase 100 H, Urine RBC 10- 25 SEEN, Urine WBC 25-50 SEEN, Ur Squamous Epith Cells 0-5 SEEN, Ur Transition Epith Cell 0-5 SEEN, Urine Bacteria 1+, WBC Casts 0-5 SEEN, Urine Mucus 0 SEEN 01/29/19 06:40: MRSA (PCR) Negative 01/29/19 10:45: APTT 55.3 H 01/29/19 16:05: APTT 66.9 H 01/30/19 05:30: WBC 9.0, RBC 4.61, Hgb 11.4 L, Hct 36.8 L, MCV 79.8 L, MCH 24.7 L, MCHC 31.0 L, RDW Std Deviation 49.3 H, RDW Coeff of Deborah 17.2 H, Plt Count 127 L, MPV 10.3, Immature Gran % (Auto) 1.800 H, Neut % (Auto) 91.8 H, Lymph % (Auto) 3.9 L, [place] % (Auto) 1.6, Eos % (Auto) 0.8, Baso % (Auto) 0.1, Absolute Neuts (auto) 8.3 H, Absolute Lymphs (auto) 0.35 L, Nucleated RBC % 0, Differential Comment 01/30/19 05:30: Sodium 144, Potassium 3.7, Chloride 114 H, Carbon Dioxide 21.0, Anion Gap 9, BUN 25 H, Creatinine 0.89, Estim Creat Clear Calc 66.86, Est GFR (MDRD) Af Amer 85, Est GFR (MDRD) Non-Af 70, BUN/Creatinine Ratio 28.1 H, Glucose 106, Calcium 7.7 L 01/30/19 05:30: APTT 100.7 H* Diagnostic Data Chest X-Ray 01/28/19 21:15 IMPRESSION: Little if any significant change. Atelectasis or scarring in both lower lobes worse on the left. Electronically Signed: Bang Wyatt MD at 21:34 EST , Service support , Chest CTA 01/28/19 22:36 IMPRESSION: Positive for pulmonary emboli on the right descending pulmonary artery into the right middle lobe. Atelectasis and/or infiltrate in both lower lobes worse on the left. N.B. : The above information has been verbally conveyed by Bang Wyatt MD to Dana Ratliff MD, on 01/28/2019 23:44:23 (ET). Electronically Signed: Bang Wyatt MD at 23:45 EST , Service support , ADDENDUM: 01/28/19 2352 IMPRESSION: Positive for pulmonary emboli on the right descending pulmonary artery into the right middle lobe. Atelectasis and/or infiltrate in both lower lobes worse on the left. N.B. : The above information has been verbally conveyed by Bang Wyatt MD to Dana Ratliff MD, on 01/28/2019 23:44:23 (ET). Electronically Signed: Bang Wyatt MD at 23:45 EST , Service support , Renal Ultrasound 01/29/19 00:52 IMPRESSION: Surgically absent right kidney. Normal appearance of the left kidney. Electronically Signed: Bang Wyatt MD at 16:16 EST , Service support , Current Medications Acetaminophen (Tylenol) 1,000 mg PO Q8H PRN PRN PRN Reason: Pain 1-10 or Fever Last Admin: 01/29/19 21:54 Dose: 1,000 mg Documented by: Albuterol Sulfate (Ventolin Aerosols) 2.5 mg INHALATION Q2H PRN PRN PRN Reason: dyspnea, wheezing Aspirin (Aspirin, Baby) 81 mg PO DAILY@0800 ERNESTO Baclofen (Lioresal) 5 mg PO TID COUNT INCLUDES THE [facility] Last Admin: 01/30/19 05:49 Dose: 5 mg Documented by: Dextrose (D50w Syringe) 0 gm IV X1 PRN; Protocol PRN Reason: Hypoglycemia Fentanyl Citrate (Sublimaze (100mcg Ampule)) 25 mcg IV Q2H PRN PRN PRN Reason: Pain Score 4-10/10 Last Admin: 01/29/19 21:56 Dose: 25 mcg Documented by: Glucagon () 1 mg IM .X1 PRN PRN Reason: Hypoglycemia Heparin Sodium (Beef Lung) () 50 units IV UD PRN PRN Reason: Port-a-Cath (VAD)Heparin Flush Heparin Sodium (Porcine) (Heparin Na) 0 unit IV UD PRN; Protocol Hydrocortisone Sodium Succinate (Solu-Cortef) 50 mg IV Q6 ERNESTO Last Admin: 01/30/19 05:47 Dose: 50 mg Documented by: Heparin Sodium/Dextrose () 25,000 units in 250 mls @ 10 mls/hr IV .Q25H ERNESTO; Protocol Last Admin: 01/30/19 00:06 Dose: 7 mls/hr Documented by: Vancomycin IV Pharmacy to Dose (1 ea/ Sodium Chloride) 500 mls @ 250 mls/hr IV X1 PRN; Protocol PRN Reason: Rx to Dose Piperacillin Sod/Tazobactam (Sod 3.375 gm/ Sodium Chloride) 50 mls @ 12.5 mls/hr IV Q8 ERNESTO Last Admin: 01/30/19 05:50 Dose: 12.5 mls/hr Documented by: Sodium Chloride () 250 mls @ 15 mls/hr IV .[id number] PRN PRN Reason: Saline Flush Last Infusion: 01/30/19 05:51 Dose: 0 mls/hr Documented by: Vancomycin HCl (Vancomycin) 1,000 mg in 200 mls @ 200 mls/hr IV Q24H COUNT INCLUDES THE [facility] Last Infusion: 01/30/19 01:10 Dose: Infused Documented by: Norepinephrine Bitartrate 8 mg (/ Sodium Chloride) 250 mls @ 9.375 mls/hr CONT INF .[id number] COUNT INCLUDES THE [facility]; Protocol Last Titration: 01/30/19 06:00 Dose: 3 mcg/min, 5.6 mls/hr Documented by: Sodium Chloride () 1,000 mls @ 75 mls/hr IV .[id number] COUNT INCLUDES THE [facility] Last Infusion: 01/30/19 01:10 Dose: 75 mls/hr Documented by: Nitroglycerin (Nitrostat) 0.4 mg SUBLINGUAL Q5M PRN PRN Reason: CARDIAC/CHEST PAIN Ondansetron HCl (Zofran) 4 mg IV Q8H PRN PRN PRN Reason: NAUSEA/VOMITING Last Admin: 01/29/19 12:07 Dose: 4 mg Documented by: Sodium Chloride () 10 - 40 ml IV UD PRN PRN Reason: Port-a-Cath (VAD) Flush Last Admin: 01/29/19 04:08 Dose: 10 ml Documented by: Sodium Chloride (0.9% Nacl (Sterile) Posiflush) 10 - 40 ml IV UD PRN PRN Reason: Port access or dressing change Last Admin: 01/29/19 11:50 Dose: 10 ml Documented by: Sodium Chloride () 10 - 40 ml IV UD PRN PRN Reason: SALINE FLUSH Temazepam (Restoril) 30 mg PO QHS COUNT INCLUDES THE [facility] Last Admin: 01/30/19 00:16 Dose: 30 mg Documented by: STROKE Vital Signs/Narrative: Vital Signs Temp Pulse Resp BP BP Pulse Ox 01/30/19 07:00 96.2 F L 64 13 88/57 L 96 01/30/19 06:00 72 19 H 92/65 92/65 98 01/30/19 05:00 62 14 92/62 92/62 97 Medical Necessity - Tobacco Use Smoking Status: Never smoker Tobacco Use: Non-smoker Assessment/Plan All Active Problems Septic shock (Acute) UTI (urinary tract infection) (Acute) Pneumonia (Acute) KELLEE (acute kidney injury) (Acute) Hypokalemia (Acute) Encephalopathy acute (Acute) 1. Septic shock due to UTI * had to be put back on levophed yesterday * on IV vancomycin and zosyn * urine for strep and legionella is negative * urine and blood cultures pending * urine culture from 01/27/19 grew >100,000 Pseudomonas; sensitivities pending. * critical care on board * on IV hydrocortisone 50mg q6 * 2. Nonstemi * troponin was 22 on admission ->20->12.9 * on heparin drip * 2D echo: EF of 15%, with severe segmental systolic dysfunction, PA pressure is 32, stage 1 diastolic dysfunction * cardiology on board; will need cardiac cath * on aspirin and brilinta. * patient is concerned about effect of dye on her solitary kidney during cardiac cath, and wants to discuss this further with cardiology * 3. PE: CTA as under 2. on heparin drip. 4. KELLEE: * likely pre-renal, due to septic shock. * resolved. Cr down to 0.89 * nephrology on board * 5. Hypokalemia: resolved. K is 3.7 today. 6. 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 * follows Dr Valiente * 7. Acute metabolic encephalopathy due to septic shock: resolved. 8. Chronic pain syndrome: baclofen resumed yesterday. Rest of pain meds on hold. DVT prophylaxis: on heparin drip. Code Visit Inpatient E&M: [id number] [facility] L3
--- NOTE | 2019-01-30 09:06 | PN.CARD_ITS ---
Subjectve: Patient seen and evaluated. Appears to be doing well no chest pain Objective: Vital Signs Temp Pulse Resp BP Pulse Ox 96.2 F L 64 13 88/57 L 96 01/30/19 07:00 01/30/19 07:00 01/30/19 07:00 01/30/19 07:00 01/30/19 07:00 Oxygen Flow Rate (L/min) 2 Oxygen Delivery Method Room Air Weight: 164 lb 10.965 oz Body Mass Index (BMI) 25.2 Intake and Output for Last 24 Hours 01/28/19 01/29/19 01/30/19 23:59 23:59 23:59 Intake Total 2595.10 / 2595.10 2301.53 / 2544.33 1684.35 / 1684.35 Output Total 425 / 1125 1000 / 1000 Balance 2595.10 / 2595.10 1876.53 / 1419.33 684.35 / 684.35 General: Awake, Alert, Oriented x 3 HEENT: PERRL, EOMI, Sclera Non Icteric Neck: Supple, Good ROM, No Lymph Node Enlargement Lungs: Clear to auscultation Cardiovascular: Regular Rhythm, Normal S1, Normal S2, No Murmurs, No Rubs, No Gallops Vascular: No Carotid Bruits, Normal Femoral Pulses, Normal Radial Pulses, Normal Dorsalis Pedal Pulse, Normal Posterior Tibial Pulses Abdomen: Bowel Sounds Present, Soft, Non Tender, No HSM, No Organomegaly Extremities: No Cyanosis, No Clubbing, No edema Musculoskeletal: No Erythema Skin: No Rashes Lymphatic: No Lymph Node Enlargement Neurological: No Focal Motor or Sensory Deficit Psych/Mental Status: Appropriate 01/29/19 04:05: Urine Color Yellow, Urine Clarity Sl. Cloudy, Urine pH 5.0, Ur S pecific [place] 1.010, Urine Protein 30 H, Urine Glucose (UA) Normal, Urine Ketones 5 H, Urine Occult Blood 150 H, Urine Nitrite Negative, Urine Bilirubin Negative, Urine Urobilinogen Normal, Ur Leukocyte Esterase 100 H, Urine RBC 10- 25 SEEN, Urine WBC 25-50 SEEN 01/29/19 10:45: APTT 55.3 H 01/29/19 16:05: APTT 66.9 H 01/30/19 05:30: WBC 9.0, RBC 4.61, Hgb 11.4 L, Hct 36.8 L, MCV 79.8 L, MCH 24.7 L, MCHC 31.0 L, Plt Count 127 L, MPV 10.3, Immature Gran % (Auto) 1.800 H, Neut % (Auto) 91.8 H, Lymph % (Auto) 3.9 L, [place] % (Auto) 1.6, Eos % (Auto) 0.8, Baso % (Auto) 0.1, Absolute Neuts (auto) 8.3 H, Nucleated RBC % 0 01/30/19 05:30: Sodium 144, Potassium 3.7, Chloride 114 H, Carbon Dioxide 21.0, Anion Gap 9, BUN 25 H, Creatinine 0.89, Est GFR (MDRD) Af Amer 85, Est GFR (MDRD) Non-Af 70, BUN/Creatinine Ratio 28.1 H, Glucose 106, Calcium 7.7 L 01/30/19 05:30: APTT 100.7 H* Rhythm: EKG: ECHO: Stress Test: Cardiac Cath: PCI: CT Surgery: Holter monitor: EPS: PPM: CXR: Chest CT Scan: Medical Necessity - Tobacco Use Smoking Status: Never smoker Tobacco Use: Non-smoker Assessment/Plan 1. Non-ST elevation myocardial infarction * The exact precipitating etiology is not clear. It is unusual for her current chemotherapeutic medication toracil to be responsible for the above. She likely had underlying coronary disease. Takotsubo cardiomyopathy cannot be completely excluded especially due to the configuration as well as the EKG changes. * Recommendation at this time will be to continue anticoagulation with heparin, which will be discontinued at 3 AM in preparation for cardiac catheterization * Continue aspirin * Continue Brilinta for now * Would likely undergo cardiac catheterization in 24 hours. * Would institute high intensity statin * Hold off on beta-blockers for now due to her hypotensive state * 2. Cardiomyopathy * She does have evidence of cardiomyopathy which may be ischemic. Her echocardiogram demonstrated an ejection fraction of approximately 15% with segmental wall motion of normalities with an akinetic apex * Her global longitudinal score is less than 10 * Once she is appropriately started and revascularized an CHERI inhibitor or ARB or Entresto should be considered as well as carvedilol. * 3. Hypotension * Is likely multifactorial from sepsis as well as cardiac * Continue supportive IV fluids and pressor agents * Would also recommend replenishing her electrolytes with potassium and magnesium as appropriate * * Above discussed with hospitalist * 4. Metastatic renal cell carcinoma * Kidney function improved with cautious IV hydration. * We will try as much as possible to limit IV dye exposure * Thank you for allowing me to participate in the care of your patient. Please don't hesitate to call if any issues arise
[2019-01-30] MEDS: Aspirin 81 MG TAB.CHEW PO (11:31)
[2019-01-30] MEDS: TICAGRELOR 90 MG TABLET PO ×2 (11:31→21:00)
[2019-01-30 14:16] LABS: Partial Thromboplast Time 50.1 Seconds (24.1-36.2)
[2019-01-30] MEDS: Heparin Injection (Vial) 5,000 UNIT/ML VIAL IV (14:48)
[2019-01-30] MEDS: 0.9% Saline Lock 10 ML Syringe IV ×2 (14:50→19:42)
[2019-01-30] MEDS: NYSTATIN 500,000 UNIT/5 ML UDC 500000 UNIT PO ×2 (18:10→21:02)
[2019-01-30] MEDS: fentaNYL 100 MCG/2 ML Ampul 25 MCG IV (19:41)
[2019-01-30 21:15] LABS: Partial Thromboplast Time 88.6 Seconds (24.1-36.2)
[2019-01-30 23:51] LABS: Vancomycin, Trough Level 10.5 ug/mL (5.0-15.0)
[2019-01-31] VITALS (25 sets, daily range): BP systolic 87–125; BP diastolic 60–82; PULSE 65–88; RESP 12–26; TEMP 36.1–37.3; O2SAT 96–100
--- NOTE | 2019-01-31 01:36 | PCM.RX.CS ---
Consult Pharmacy has been consulted to manage selected antiobiotic: Vancomycin Type of Consult: Follow-up Suspected Infection: Sepsis Labs: Sodium 144 mmol/L (136-145) 01/30/19 05:30 Potassium 3.7 mmol/L (3.5-5.1) 01/30/19 05:30 Chloride 114 mmol/L (98-107) H 01/30/19 05:30 Carbon Dioxide 21.0 mmol/L (21.0-32.0) 01/30/19 05:30 Anion Gap 9 (5-15) 01/30/19 05:30 BUN 25 mg/dL (7-18) H 01/30/19 05:30 Creatinine 0.89 mg/dL (0.55-1.02) 01/30/19 05:30 Est GFR (MDRD) Af Amer 85 mL/min (>60) 01/30/19 05:30 Est GFR (MDRD) Non-Af 70 mL/min (>60) 01/30/19 05:30 BUN/Creatinine Ratio 28.1 RATIO (10-20) H 01/30/19 05:30 Glucose 106 mg/dL (74-106) 01/30/19 05:30 Vancomycin Trough 10.5 ug/mL (5.0-15.0) 01/30/19 22:35 Microbiology: Microbiology 01/29/19 04:05 Urine Catheter - [facility] Urine Culture - Preliminary Culture exhibits no growth. 01/29/19 01:30 Mucosa - Nose Respiratory Panel (PCR) - Final 01/29/19 04:05 Urine Catheter - [facility] Legionella Antigen - Final 01/29/19 04:05 Urine Catheter - [facility] Streptococcus pneumoniae Antigen (M - Final 01/28/19 21:32 Mucosa - Throat Influenza Types A,B Direct FA (DANNY) - Final Weight used for dosin.7 kg Estimated Creatinine Clearance: 66.86 Goal Trough: 15-20 mcg/mL Pharmacy Plan for Drug Dosing: Pharmacy Service will continue to monitor and adjust dosing as required. TROUGH 10.5 CRCl INCREASED TO 66.86 NEW DOSE 1GM Q12H NEXT TROUGH 02/01 @ 1030 Follow-Up Labs: Trough Vancomycin Labs to be done on [date and time ordered]: 02/01 @ 1030
[2019-01-31] MEDS: 0.9% Normal Saline 1,000 ML 75 ML IV (03:02)
[2019-01-31 04:15] LABS: Absolute Lymphocyte Count 0.29 X10^3/uL (0.83-4.51); Absolute Neutrophil Count 4.9 X10^3/uL (2.0-7.7); Eosinophil# 0.04 X10^3/uL; Eosinophils% 0.7 % (0-5); Hematocrit 31.9 % (37-47); Hemoglobin 9.6 g/dL (12.0-15.0); Lymphocyte # 0.29 X10^3/ul (4.0); Lymphocyte % 5.4 % (19-41); Mean Corp Hgb Conc 30.1 g/dL (32-36); Mean Corpuscular Hgb 24.5 pg (27.0-32.0); Mean Corpuscular Volume 81.4 fL (81-99); Mean Platelet Vol. 10.1 fl (6.2-12.0); Monocyte# 0.13 X10^3/uL; Monocyte% 2.4 % (0-10); NRBC Flagged by Analyzer 0 % (0-5); Neutrophil # 4.91 X10^3/uL (2.7-7.7); Neutrophil % 90.9 % (47-70); POSITIVE COUNT YES; POSITIVE DIFFERENTIAL YES; Platelet Count 85 K/mm3 (150-450); RBC Distribution Width CV 17.3 % (11.6-14.6); RBC Distribution Width SD 50.6 fl (35.1-43.9); Red Blood Count 3.92 M/mm3 (4.2-5.4); White Blood Count 5.4 K/mm3 (4.4-11.0)
[2019-01-31 04:25] LABS: Anion Gap 10 (5-15); BUN 19 mg/dL (7-18); BUN/Creat Ratio 26.5 RATIO (10-20); Calcium,Total 7.8 mg/dL (8.5-10.1); Chloride 119 mmol/L (98-107); Creatinine, Serum 0.72 mg/dL (0.55-1.02); EST Glomerular Filtration Rate 90 mL/min (>60); Est Glom Filt Rate - Afr Amer 109 mL/min (>60); Estimated Creatinine Clearance 82.65 ml/min; Glucose 89 mg/dL (74-106); Sodium Level 149 mmol/L (136-145)
[2019-01-31 04:36] LABS: Differential Indicated SCAN CRITERIA MET; Partial Thromboplast Time 99.2 Seconds (24.1-36.2)
[2019-01-31 05:11] LABS: Differential Comment SCANNED
[2019-01-31 05:12] LABS: Crenated RBC 1+; Hypochromasia 2+; Ovalocyte 2+
[2019-01-31] MEDS: TICAGRELOR 90 MG TABLET PO (06:07)
[2019-01-31] MEDS: Baclofen 10 MG Tablet 5 MG PO ×3 (06:07→21:22)
[2019-01-31] MEDS: Hydrocortisone Sod Succinate 100 MG/2 ML Vial 50 MG IV ×4 (06:07→23:25)
[2019-01-31] MEDS: Aspirin 81 MG TAB.CHEW PO (06:11)
--- NOTE | 2019-01-31 07:06 | PCM.PN.INT ---
Subjective: Patient did well overnight. Patient was able to come off of Levophed and blood pressures have remained stable overnight. Patient does report some sensation of being cold this morning, but states this is her baseline. Patient denies any chest pain, but does have some shortness of breath with laying on her side. No nausea or vomiting is been reported. General: Alert, Oriented x3, Cooperative, No apparent distress, Well developed, Well nourished HEENT: Atraumatic, PERRLA, EOMI, Normocephalic Oral: Moist Mucosa, No Gingival or Mucosal Lesions/ Ulcerations Neck: Supple, No JVD, No Nodes, Trachea Midline Lungs: No rhonchi, No wheeze, No rales, Diminished Cardiovascular: Regular rate, Regular Rhythm, Normal S1, Normal S2, No murmurs, No rub noted, No Gallop Abdomen: Bowel Sounds Present, Soft, Non Tender, Non-Distended Extremities: No clubbing, No cyanosis, No edema, Capillary Refill Less than 3 Seconds Skin: No rashes, No breakdown Musculoskeletal: No Tenderness to Palpation of Joints or Extremities Lymphatic: No Cervical, Supraclavicular, or Inguinal Adenopathy Neurological: Cranial nerves II-XII grossly intact, Deep Tendon Reflexes 2+/4 and Symmetrical, Neuro grossly intact Psych/Mental Status: Normal Affect, Appropriate Vital Signs Temp Pulse Resp BP Pulse Ox 36.1 C L 73 14 95/61 96 01/31/19 03:00 01/31/19 07:00 01/31/19 07:00 01/31/19 07:00 01/31/19 07:00 Oxygen Flow Rate (L/min) 2 Oxygen Delivery Method Room Air Weight: 77.7 kg Body Mass Index (BMI) 25.2 Intake and Output for Last 24 Hours 01/29/19 01/30/19 01/31/19 23:59 23:59 23:59 Intake Total 2301.53 / 2544.33 3773.32 / 3893.32 875.0 / 875.0 Output Total 425 / 1125 1400 / 1725 325 / 325 Balance 1876.53 / 1419.33 2373.32 / 2168.32 550.0 / 550.0 Labs (Last 48 Hours) 01/29/19 01/29/19 01/29/19 04:05 06:40 10:45 WBC RBC Hgb Hct MCV MCH MCHC RDW Std Deviation RDW Coeff of Deborah Plt Count MPV Immature Gran % (Auto) Neut % (Auto) Lymph % (Auto) [place] % (Auto) Eos % (Auto) Baso % (Auto) Absolute Neuts (auto) Absolute Lymphs (auto) Nucleated RBC % Differential Comment Hypochromasia Ovalocytes Crenated Cell APTT 55.3 H Sodium Potassium Chloride Carbon Dioxide Anion Gap BUN Creatinine Estim Creat Clear Calc Est GFR (MDRD) Af Amer Est GFR (MDRD) Non-Af BUN/Creatinine Ratio Glucose Calcium Urine Color Yellow Urine Clarity Sl. Cloudy Urine pH 5.0 Ur Specific [place] 1.010 Urine Protein 30 H Urine Glucose (UA) Normal Urine Ketones 5 H Urine Occult Blood 150 H Urine Nitrite Negative Urine Bilirubin Negative Urine Urobilinogen Normal Ur Leukocyte Esterase 100 H Urine RBC 10-25 SEEN Urine WBC 25-50 SEEN Ur Squamous Epith Cells 0-5 SEEN Ur Transition Epith Cell 0-5 SEEN Urine Bacteria 1+ WBC Casts 0-5 SEEN Urine Mucus 0 SEEN Vancomycin Trough MRSA (PCR) Negative 01/29/19 01/30/19 01/30/19 16:05 05:30 05:30 WBC 9.0 RBC 4.61 Hgb 11.4 L Hct 36.8 L MCV 79.8 L MCH 24.7 L MCHC 31.0 L RDW Std Deviation 49.3 H RDW Coeff of Deborah 17.2 H Plt Count 127 L MPV 10.3 Immature Gran % (Auto) 1.800 H Neut % (Auto) 91.8 H Lymph % (Auto) 3.9 L [place] % (Auto) 1.6 Eos % (Auto) 0.8 Baso % (Auto) 0.1 Absolute Neuts (auto) 8.3 H Absolute Lymphs (auto) 0.35 L Nucleated RBC % 0 Differential Comment Hypochromasia Ovalocytes Crenated Cell APTT 66.9 H Sodium 144 Potassium 3.7 Chloride 114 H Carbon Dioxide 21.0 Anion Gap 9 BUN 25 H Creatinine 0.89 Estim Creat Clear Calc 66.86 Est GFR (MDRD) Af Amer 85 Est GFR (MDRD) Non-Af 70 BUN/Creatinine Ratio 28.1 H Glucose 106 Calcium 7.7 L Urine Color Urine Clarity Urine pH Ur Specific [place] Urine Protein Urine Glucose (UA) Urine Ketones Urine Occult Blood Urine Nitrite Urine Bilirubin Urine Urobilinogen Ur Leukocyte Esterase Urine RBC Urine WBC Ur Squamous Epith Cells Ur Transition Epith Cell Urine Bacteria WBC Casts Urine Mucus Vancomycin Trough MRSA (PCR) 01/30/19 01/30/19 01/30/19 05:30 14:00 20:50 WBC RBC Hgb Hct MCV MCH MCHC RDW Std Deviation RDW Coeff of Deborah Plt Count MPV Immature Gran % (Auto) Neut % (Auto) Lymph % (Auto) [place] % (Auto) Eos % (Auto) Baso % (Auto) Absolute Neuts (auto) Absolute Lymphs (auto) Nucleated RBC % Differential Comment Hypochromasia Ovalocytes Crenated Cell APTT 100.7 H* 50.1 H 88.6 H Sodium Potassium Chloride Carbon Dioxide Anion Gap BUN Creatinine Estim Creat Clear Calc Est GFR (MDRD) Af Amer Est GFR (MDRD) Non-Af BUN/Creatinine Ratio Glucose Calcium Urine Color Urine Clarity Urine pH Ur Specific [place] Urine Protein Urine Glucose (UA) Urine Ketones Urine Occult Blood Urine Nitrite Urine Bilirubin Urine Urobilinogen Ur Leukocyte Esterase Urine RBC Urine WBC Ur Squamous Epith Cells Ur Transition Epith Cell Urine Bacteria WBC Casts Urine Mucus Vancomycin Trough MRSA (PCR) 01/30/19 01/31/19 01/31/19 22:35 03:45 03:45 WBC 5.4 RBC 3.92 L Hgb 9.6 L Hct 31.9 L MCV 81.4 MCH 24.5 L MCHC 30.1 L RDW Std Deviation 50.6 H RDW Coeff of Deborah 17.3 H Plt Count 85 L MPV 10.1 Immature Gran % (Auto) 0.600 Neut % (Auto) 90.9 H Lymph % (Auto) 5.4 L [place] % (Auto) 2.4 Eos % (Auto) 0.7 Baso % (Auto) 0.0 Absolute Neuts (auto) 4.9 Absolute Lymphs (auto) 0.29 L Nucleated RBC % 0 Differential Comment SCANNED Hypochromasia 2+ Ovalocytes 2+ Crenated Cell 1+ APTT Sodium 149 H Potassium 3.0 L Chloride 119 H Carbon Dioxide 20.0 L Anion Gap 10 BUN 19 H Creatinine 0.72 Estim Creat Clear Calc 82.65 Est GFR (MDRD) Af Amer 109 Est GFR (MDRD) Non-Af 90 BUN/Creatinine Ratio 26.5 H Glucose 89 Calcium 7.8 L Urine Color Urine Clarity Urine pH Ur Specific [place] Urine Protein Urine Glucose (UA) Urine Ketones Urine Occult Blood Urine Nitrite Urine Bilirubin Urine Urobilinogen Ur Leukocyte Esterase Urine RBC Urine WBC Ur Squamous Epith Cells Ur Transition Epith Cell Urine Bacteria WBC Casts Urine Mucus Vancomycin Trough 10.5 MRSA (PCR) 01/31/19 03:45 WBC RBC Hgb Hct MCV MCH MCHC RDW Std Deviation RDW Coeff of Deborah Plt Count MPV Immature Gran % (Auto) Neut % (Auto) Lymph % (Auto) [place] % (Auto) Eos % (Auto) Baso % (Auto) Absolute Neuts (auto) Absolute Lymphs (auto) Nucleated RBC % Differential Comment Hypochromasia Ovalocytes Crenated Cell APTT 99.2 H* Sodium Potassium Chloride Carbon Dioxide Anion Gap BUN Creatinine Estim Creat Clear Calc Est GFR (MDRD) Af Amer Est GFR (MDRD) Non-Af BUN/Creatinine Ratio Glucose Calcium Urine Color Urine Clarity Urine pH Ur Specific [place] Urine Protein Urine Glucose (UA) Urine Ketones Urine Occult Blood Urine Nitrite Urine Bilirubin Urine Urobilinogen Ur Leukocyte Esterase Urine RBC Urine WBC Ur Squamous Epith Cells Ur Transition Epith Cell Urine Bacteria WBC Casts Urine Mucus Vancomycin Trough MRSA (PCR) Microbiology 01/29/19 04:05 Urine Catheter - Blount Urine Culture - Preliminary Culture exhibits no growth. 01/29/19 01:30 Mucosa - Nose Respiratory Panel (PCR) - Final 01/29/19 04:05 Urine Catheter - Blount Legionella Antigen - Final 01/29/19 04:05 Urine Catheter - Blount Streptococcus pneumoniae Antigen (M - Final Medical Necessity - Tobacco Use Smoking Status: Never smoker Tobacco Use: Non-smoker Assessment/Plan All Active Problems Septic shock (Acute) UTI (urinary tract infection) (Acute) Pneumonia (Acute) KELLEE (acute kidney injury) (Acute) Hypokalemia (Acute) Encephalopathy acute (Acute) RECOMMENDATIONS: 1. Continue broad-spectrum antimicrobial coverage, pending infectious work-up. 2. Judicious use of supplemental IV fluids, given depressed ejection fraction. 3. Continue heparin infusion. 4. Await results of heart catheterization 5. Continue stress dose steroids. Anticipate weaning stress dose steroids tomorrow 6. Encourage incentive spirometer use while in bed and mobilize patient as tolerated. IMPRESSIONS: 1. Septic shock Most likely secondary to complicated urinary tract infection. Cultures are currently pending. The patient will be continued on broad-spectrum antimicrobial coverage, pending finalized infectious work-up. She has been adequately volume resuscitated. Patient is currently off of pressor therapy. Patient reportedly had a positive culture at [facility] from the urine. Results are still pending. 2. Acute kidney injury Improved with volume expansion and stabilization of hemodynamics. Likely ischemic ATN in the setting of #1. Blount catheter is currently in place. Continue to monitor urine output. No current indication for renal replacement therapy. 3. NSTEMI/Troponin elevation The patient experienced a treat troponin leak of 22. Patient is to have a heart catheterization today by cardiology. Await results of this testing. Patient will likely come back to the intensive care unit following the procedure for recovery. 4. Acute pulmonary emboli Continue systemic anticoagulation. 5. Metabolic/infectious encephalopathy Improved with aggressive supportive measures including broad-spectrum antimicrobials and supplemental IV fluids. 6. History of renal cell carcinoma undergoing chemotherapy/baseline paraplegia/chronic pain syndrome Complicates care, management, recovery and prognosis. Dietary advancement per speech therapy recommendations. Code Visit Inpatient E&M: [id number] [facility] Hosp L3
--- NOTE | 2019-01-31 08:50 | CL.D_ITS ---
Patient Name: SCOTTY REDMOND Study Date: 01/31/2019 Performing: Jaya Bedolla MD Ht: 66.14 inches 168 cm : 1965 Wt: 171.96 lbs 78 kg Age: 53 Gender: female BSA: 1.88 PROCEDURE(S) PERFORMED ON21-AAT/COR/LV CLINICAL PROFILE AND INDICATIONS Indications: ACS > 24 hrs, Suspected CAD, LV Dysfunction Heart Failure: NYHA Class: 1, Newly Diagnosed: Yes, Heart Failure Type: Systolic Stress/Imaging Stress/Image Study Performed: No Angina Classification Anginal Classification w/in 2 Weeks: No symptoms CAD Presentations: Non-STEMI. 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 RECOMMENDATIONS Management as per referring Supervisor [facility] Manual sheath removal. Check LE dopplers for DVT; if positive consider penitentiary anticoagulation. Relook at CT to confirm presence of PE. Will d/w Dr Montgomery. DESCRIPTION OF PROCEDURE The patient arrived to the procedure lab. The risks and benefits of the procedure as well as a full d escription of our services here and current unavailability of surgical backup were fully explained to the patient and/or their significant other prior to the catheterization. The Timeout was completed, verifying the correct patient and procedure. The patient's procedural site was prepped and draped in the usual fashion. Local anesthetic was given subcutaneously to right groin region with Lidocaine 2%. Using a modified Seldinger technique, arterial access was obtained via the right femoral artery, a 4 Fr sheath was inserted Left Coronary Artery selective angiography was performed in multiple views us ing a 4 Fr. JL5 catheter. Right Coronary Artery selective angiography was then performed in multiple views using a 4 Fr. 3DRC catheter. Left Ventriculography was performed in MCGARRY projection using a 4 Fr . Pigtail catheter. LV to AO pullback pressures were then recorded.The arterial sheath was pulled and manual compression applied until hemostasis is achieved. CORONARY ANGIOGRAPHY DOMINANCE: Left Dominant LEFT HEART ASSESSMENT Left Ventricular Ejection Fraction: by LV Gram 35 % Anterior Hypokinesis - Moderate. Apical Hypokinesis - Moderate Depressed Left Ventricular systolic function LVEDP: 18-20 mmHg Elevated Left Ventricular End Diastolic Pressure LEFT MAIN: Angiographically normal LEFT ANTERIOR DESCENDING ARTERY: OSTIAL LAD: Mild luminal irregularities less than 30% PROX LAD: Mild luminal irregularities less than 30% MID LAD: Mild luminal irregularities less than 30% CIRCUMFLEX ARTERY: DISTAL CIRC: Mild luminal irregularities less than 30% RIGHT CORONARY ARTERY: Mild luminal irregularities less than 30% COMPLICATIONS No Complications PROCEDURE MEDICATIONS Oxygen: 2 L/min via nasal cannula SUMMARY OF HEMODYNAMIC DATA Time AIR REST ECG 08:07:43 AO 104/64 (78) SA 08:27:08 LV 104/-1, 22 08:32:11 LV 105/-5, 20 08:32:18 LVp 109/-7, 18 08:32:31 AOp 108/58 (79) 08:32:36 Signed By Jaya Bedolla MD On 01/31/2019 08:49:37 Jaya Bedolla MD
--- NOTE | 2019-01-31 09:01 | PCM.PN.HOSP ---
Patient Problems: Active and Suspected Problems Septic shock (Acute) UTI (urinary tract infection) (Acute) Pneumonia (Acute) KELLEE (acute kidney injury) (Acute) Hypokalemia (Acute) Encephalopathy acute (Acute) Subjective: Is overnight, doing well. Feels better than when she came in. Vitals/I&O's: Vital Signs Temp Pulse Resp BP Pulse Ox 97.0 F L 73 14 95/61 96 01/31/19 03:00 01/31/19 07:00 01/31/19 07:00 01/31/19 07:00 01/31/19 07:00 Oxygen Flow Rate (L/min) 2 Oxygen Delivery Method Room Air Weight: 171 lb 4.787 oz Body Mass Index (BMI) 25.2 Intake and Output for Last 24 Hours 01/29/19 01/30/19 01/31/19 23:59 23:59 23:59 Intake Total 2301.53 / 2544.33 3773.32 / 3893.32 875.0 / 875.0 Output Total 425 / 1125 1400 / 1725 750 / 750 Balance 1876.53 / 1419.33 2373.32 / 2168.32 125.0 / 125.0 General: Alert, Oriented x3, Cooperative, No apparent distress HEENT: Atraumatic, PERRLA, EOMI, Normocephalic Oral: Moist Mucosa Neck: Supple, No JVD Lungs: Clear to auscultation, Normal air movement, No rhonchi, No wheeze, No rales, Diminished Cardiovascular: Regular rate, Regular Rhythm, Normal S1, Normal S2, No murmurs Abdomen: Soft, Non Tender, Non-Distended, No Hepato-splenomegaly Extremities: No edema, Capillary Refill Less than 3 Seconds Skin: No rashes, No breakdown Neurological: Neuro grossly intact - Bilateral paraplegia which is chronic for her after metastasis of renal cell cancer, Sensory exam intact to light touch and pain - At baseline for her Psych/Mental Status: Normal Affect, Appropriate Microbiology Past 72 Hours 01/29/19 04:05 Urine Catheter - Blount Urine Culture - Preliminary Culture exhibits no growth. 01/29/19 01:30 Mucosa - Nose Respiratory Panel (PCR) - Final 01/29/19 04:05 Urine Catheter - Blount Legionella Antigen - Final 01/29/19 04:05 Urine Catheter - Blount Streptococcus pneumoniae Antigen (M - Final 01/28/19 21:32 Mucosa - Throat Influenza Types A,B Direct FA (DANNY) - Final Laboratory Results 01/30/19 14:00: APTT 50.1 H 01/30/19 20:50: APTT 88.6 H 01/30/19 22:35: Vancomycin Trough 10.5 01/31/19 03:45: WBC 5.4, RBC 3.92 L, Hgb 9.6 L, Hct 31.9 L, MCV 81.4, MCH 24.5 L, MCHC 30.1 L, RDW Std Deviation 50.6 H, RDW Coeff of Deborah 17.3 H, Plt Count 85 L, MPV 10.1, Immature Gran % (Auto) 0.600, Neut % (Auto) 90.9 H, Lymph % (Auto) 5.4 L, [place] % (Auto) 2.4, Eos % (Auto) 0.7, Baso % (Auto) 0.0, Absolute Neuts (auto) 4.9, Absolute Lymphs (auto) 0.29 L, Nucleated RBC % 0, Differential Comment SCANNED, Hypochromasia 2+, Ovalocytes 2+, Crenated Cell 1+ 01/31/19 03:45: Sodium 149 H, Potassium 3.0 L, Chloride 119 H, Carbon Dioxide 20.0 L, Anion Gap 10, BUN 19 H, Creatinine 0.72, Estim Creat Clear Calc 82.65, Est GFR (MDRD) Af Amer 109, Est GFR (MDRD) Non-Af 90, BUN/Creatinine Ratio 26.5 H, Glucose 89, Calcium 7.8 L 01/31/19 03:45: APTT 99.2 H* Current Medications Acetaminophen (Tylenol) 1,000 mg PO Q8H PRN PRN PRN Reason: Pain 1-10 or Fever Last Admin: 01/29/19 21:54 Dose: 1,000 mg Documented by: Albuterol Sulfate (Ventolin Aerosols) 2.5 mg INHALATION Q2H PRN PRN PRN Reason: dyspnea, wheezing Aspirin (Aspirin, Baby) 81 mg PO DAILY@0800 [facility] Last Admin: 01/31/19 06:11 Dose: 81 mg Documented by: Baclofen (Lioresal) 5 mg PO TID [facility] Last Admin: 01/31/19 06:07 Dose: 5 mg Documented by: Dextrose (D50w Syringe) 0 gm IV X1 PRN; Protocol PRN Reason: Hypoglycemia Fentanyl Citrate (Sublimaze (100mcg Ampule)) 25 mcg IV Q2H PRN PRN PRN Reason: Pain Score 4-10/10 Last Admin: 01/30/19 19:41 Dose: 25 mcg Documented by: Glucagon () 1 mg IM .X1 PRN PRN Reason: Hypoglycemia Heparin Sodium (Beef Lung) () 50 units IV UD PRN PRN Reason: Port-a-Cath (VAD)Heparin Flush Heparin Sodium (Beef Lung) (Heparin 500 Unit/5 Ml (100/Ml)) 500 unit IV UD PRN PRN Reason: HEPARIN FLUSH Heparin Sodium (Porcine) (Heparin Na) 0 unit IV UD PRN; Protocol Last Admin: 01/30/19 14:48 Dose: 1,000 unit Documented by: Hydrocortisone Sodium Succinate (Solu-Cortef) 50 mg IV Q6 ERNESTO Last Admin: 01/31/19 06:07 Dose: 50 mg Documented by: Vancomycin IV Pharmacy to Dose (1 ea/ Sodium Chloride) 500 mls @ 250 mls/hr IV X1 PRN; Protocol PRN Reason: Rx to Dose Piperacillin Sod/Tazobactam (Sod 3.375 gm/ Sodium Chloride) 50 mls @ 12.5 mls/hr IV Q8 ERNESTO Last Admin: 01/31/19 06:10 Dose: 12.5 mls/hr Documented by: Sodium Chloride () 250 mls @ 15 mls/hr IV .[id number] PRN PRN Reason: Saline Flush Last Infusion: 01/30/19 05:51 Dose: 0 mls/hr Documented by: Norepinephrine Bitartrate 8 mg (/ Sodium Chloride) 250 mls @ 9.375 mls/hr CONT INF .[id number] [facility]; Protocol Last Titration: 01/30/19 22:00 Dose: 0 mcg/min, 0 mls/hr Documented by: Sodium Chloride () 1,000 mls @ 75 mls/hr IV .[id number] ERNESTO Last Admin: 01/31/19 03:02 Dose: 75 mls/hr Documented by: Sodium Chloride () 1,000 mls @ 0 mls/hr IV .Q0M ERNESTO Vancomycin HCl (Vancomycin) 1,000 mg in 200 mls @ 200 mls/hr IV Q12H [facility] Labetalol HCl (Trandate) 5 mg IV X1 PRN PRN Reason: SBP > 160 prior to sheath pull Stop: 02/02/19 08:40 Nitroglycerin (Nitrostat) 0.4 mg SUBLINGUAL Q5M PRN PRN Reason: CARDIAC/CHEST PAIN Nystatin (Nystatin) 500,000 unit PO 4X/DAY [facility] Last Admin: 01/30/19 21:02 Dose: 500,000 unit Documented by: Ondansetron HCl (Zofran) 4 mg IV Q8H PRN PRN PRN Reason: NAUSEA/VOMITING Last Admin: 01/29/19 12:07 Dose: 4 mg Documented by: Sodium Chloride () 10 - 40 ml IV UD PRN PRN Reason: Port-a-Cath (VAD) Flush Last Admin: 01/30/19 19:42 Dose: 20 ml Documented by: Sodium Chloride (0.9% Nacl (Sterile) Posiflush) 10 - 40 ml IV UD PRN PRN Reason: Port access or dressing change Last Admin: 01/29/19 11:50 Dose: 10 ml Documented by: Sodium Chloride () 10 - 40 ml IV UD PRN PRN Reason: SALINE FLUSH Temazepam (Restoril) 30 mg PO QHS [facility] Last Admin: 01/30/19 22:42 Dose: 30 mg Documented by: STROKE Vital Signs/Narrative: Vital Signs Pulse Resp BP Pulse Ox 01/31/19 07:00 73 14 95/61 96 01/31/19 06:00 67 15 100/79 97 Medical Necessity - Tobacco Use Smoking Status: Never smoker Tobacco Use: Non-smoker Assessment/Plan All Active Problems Septic shock (Acute) UTI (urinary tract infection) (Acute) Pneumonia (Acute) KELLEE (acute kidney injury) (Acute) Hypokalemia (Acute) Encephalopathy acute (Acute) 1. Septic shock secondary to UTI/KELLEE/N STEMI with troponin elevation/metabolic encephalopathy secondary to sepsis -No longer on levophed -Continue with vancomycin and Zosyn, urine culture exhibits no growth however culture from 12/12/2018 grew Pseudomonas, and she had taken antibiotics prior to presentation -Encephalopathy has resolved -Cardiac cath today was unremarkable, EF of 35% with normal coronaries assumption is Takotsubo's -KELLEE has resolved however she is hypokalemic this morning will replace 2. Acute PE -On heparin drip was DC'd -We will transition to Eliquis which given her metastatic renal cell carcinoma, she will need to continue likely indefinitely 3. Baseline paraplegia/chronic pain syndrome/neurogenic bladder/metastatic renal cancer -Paraplegia secondary to renal cell carcinoma that had gone to the spine -Continue with baclofen and temazepam -She does self cath for her neurogenic bladder and has frequent UTIs DVT: Vinny Code Visit Inpatient E&M: [id number] Subs Hosp L2
[2019-01-31 09:36] LABS: ACT Activated Clotting Time 109 sec (74-137)
--- NOTE | 2019-01-31 10:17 | CASEMGMT ---
SHERRON CM Note: Review of prescription coverage. Per [employer] website using Pt's insurance- Eliquis is covered as Tier 3 medication. No prior authorization is necessary. Ivelisse GARCIA RN ACM
--- NOTE | 2019-01-31 10:23 | CASEMGMT ---
RN CM NOTE: Pt had been active with [facility] in past. HHC completed on 01/26/19. Call to [facility], pt had RN, PT/OT. Intro role of CM to patient in room. Pt states she does not need HHC on dc. Pt states she has all equipment needs and good understanding of what she needs to do at home. DC PLAN: Home on discharge. Ivelisse GARCIA RN ACM
[2019-01-31] MEDS: NYSTATIN 500,000 UNIT/5 ML UDC 500000 UNIT PO ×4 (10:48→21:21)
[2019-01-31] MEDS: Vancomycin IV 1,000 MG/200 ML BAG 200 MG IV ×2 (10:49→23:28)
--- NOTE | 2019-01-31 11:15 | PCM.PN.REN ---
Patient Problems: Active and Suspected Problems Septic shock (Acute) UTI (urinary tract infection) (Acute) Pneumonia (Acute) KELLEE (acute kidney injury) (Acute) Hypokalemia (Acute) Encephalopathy acute (Acute) Subjective: underwent heart cath this am. Renal fxn stable in solitary kidney. BP low normal which is chronic. - Physical Exam Vitals/I&O's: Vital Signs Temp Pulse Resp BP Pulse Ox 97.0 F L 73 14 95/61 96 01/31/19 03:00 01/31/19 07:00 01/31/19 07:00 01/31/19 07:00 01/31/19 07:00 Oxygen Flow Rate (L/min) 2 Oxygen Delivery Method Room Air Weight: 77.7 kg Body Mass Index (BMI) 25.2 Intake and Output for Last 24 Hours 01/29/19 01/30/19 01/31/19 23:59 23:59 23:59 Intake Total 2301.53 / 2544.33 3773.32 / 3893.32 1625.0 / 1625.0 Output Total 425 / 1125 1400 / 1725 750 / 750 Balance 1876.53 / 1419.33 2373.32 / 2168.32 875.0 / 875.0 General: Alert, Oriented x3 Lungs: Clear to auscultation Cardiovascular: Regular rate Abdomen: Bowel Sounds Present, Soft, Non Tender, Non-Distended Extremities: Edema - mild Musculoskeletal: - - paralysis Neurological: - - paralysis BLE Psych/Mental Status: Normal Affect, Appropriate, Alert and oriented to time, place, person, mood and affect Microbiology Past 72 Hours 01/29/19 04:05 Urine Catheter - Blount Urine Culture - Final Culture exhibits no growth. 01/29/19 01:30 Mucosa - Nose Respiratory Panel (PCR) - Final 01/29/19 04:05 Urine Catheter - Blount Legionella Antigen - Final 01/29/19 04:05 Urine Catheter - Blount Streptococcus pneumoniae Antigen (M - Final 01/28/19 21:32 Mucosa - Throat Influenza Types A,B Direct FA (DANNY) - Final Laboratory Results 01/30/19 14:00: APTT 50.1 H 01/30/19 20:50: APTT 88.6 H 01/30/19 22:35: Vancomycin Trough 10.5 01/31/19 03:45: WBC 5.4, RBC 3.92 L, Hgb 9.6 L, Hct 31.9 L, MCV 81.4, MCH 24.5 L, MCHC 30.1 L, RDW Std Deviation 50.6 H, RDW Coeff of Deborah 17.3 H, Plt Count 85 L, MPV 10.1, Immature Gran % (Auto) 0.600, Neut % (Auto) 90.9 H, Lymph % (Auto) 5.4 L, [place] % (Auto) 2.4, Eos % (Auto) 0.7, Baso % (Auto) 0.0, Absolute Neuts (auto) 4.9, Absolute Lymphs (auto) 0.29 L, Nucleated RBC % 0, Differential Comment SCANNED, Hypochromasia 2+, Ovalocytes 2+, Crenated Cell 1+ 01/31/19 03:45: Sodium 149 H, Potassium 3.0 L, Chloride 119 H, Carbon Dioxide 20.0 L, Anion Gap 10, BUN 19 H, Creatinine 0.72, Estim Creat Clear Calc 82.65, Est GFR (MDRD) Af Amer 109, Est GFR (MDRD) Non-Af 90, BUN/Creatinine Ratio 26.5 H, Glucose 89, Calcium 7.8 L 01/31/19 03:45: APTT 99.2 H* 01/31/19 08:36: Activated Clotting Time 109 Current Medications Acetaminophen (Tylenol) 1,000 mg PO Q8H PRN PRN PRN Reason: Pain 1-10 or Fever Last Admin: 01/29/19 21:54 Dose: 1,000 mg Documented by: Albuterol Sulfate (Ventolin Aerosols) 2.5 mg INHALATION Q2H PRN PRN PRN Reason: dyspnea, wheezing Aspirin (Aspirin, Baby) 81 mg PO DAILY@0800 [facility] Last Admin: 01/31/19 06:11 Dose: 81 mg Documented by: Baclofen (Lioresal) 5 mg PO TID [facility] Last Admin: 01/31/19 06:07 Dose: 5 mg Documented by: Dextrose (D50w Syringe) 0 gm IV X1 PRN; Protocol PRN Reason: Hypoglycemia Fentanyl Citrate (Sublimaze (100mcg Ampule)) 25 mcg IV Q2H PRN PRN PRN Reason: Pain Score 4-10/10 Last Admin: 01/30/19 19:41 Dose: 25 mcg Documented by: Glucagon () 1 mg IM .X1 PRN PRN Reason: Hypoglycemia Heparin Sodium (Beef Lung) () 50 units IV UD PRN PRN Reason: Port-a-Cath (VAD)Heparin Flush Heparin Sodium (Beef Lung) (Heparin 500 Unit/5 Ml (100/Ml)) 500 unit IV UD PRN PRN Reason: HEPARIN FLUSH Heparin Sodium (Porcine) (Heparin Na) 0 unit IV UD PRN; Protocol Last Admin: 01/30/19 14:48 Dose: 1,000 unit Documented by: Hydrocortisone Sodium Succinate (Solu-Cortef) 50 mg IV Q6 [facility] Last Admin: 01/31/19 06:07 Dose: 50 mg Documented by: Vancomycin IV Pharmacy to Dose (1 ea/ Sodium Chloride) 500 mls @ 250 mls/hr IV X1 PRN; Protocol PRN Reason: Rx to Dose Piperacillin Sod/Tazobactam (Sod 3.375 gm/ Sodium Chloride) 50 mls @ 12.5 mls/hr IV Q8 [facility] Last Infusion: 01/31/19 10:10 Dose: Infused Documented by: Sodium Chloride () 250 mls @ 15 mls/hr IV .[id number] PRN PRN Reason: Saline Flush Last Infusion: 01/30/19 05:51 Dose: 0 mls/hr Documented by: Sodium Chloride () 1,000 mls @ 0 mls/hr IV .Q0M ERNESTO Vancomycin HCl (Vancomycin) 1,000 mg in 200 mls @ 200 mls/hr IV Q12H [facility] Last Admin: 01/31/19 10:49 Dose: 200 mls/hr Documented by: Labetalol HCl (Trandate) 5 mg IV X1 PRN PRN Reason: SBP > 160 prior to sheath pull Stop: 02/02/19 08:40 Nitroglycerin (Nitrostat) 0.4 mg SUBLINGUAL Q5M PRN PRN Reason: CARDIAC/CHEST PAIN Nystatin (Nystatin) 500,000 unit PO 4X/DAY [facility] Last Admin: 01/31/19 10:48 Dose: 500,000 unit Documented by: Ondansetron HCl (Zofran) 4 mg IV Q8H PRN PRN PRN Reason: NAUSEA/VOMITING Last Admin: 01/29/19 12:07 Dose: 4 mg Documented by: Sodium Chloride () 10 - 40 ml IV UD PRN PRN Reason: Port-a-Cath (VAD) Flush Last Admin: 01/30/19 19:42 Dose: 20 ml Documented by: Sodium Chloride (0.9% Nacl (Sterile) Posiflush) 10 - 40 ml IV UD PRN PRN Reason: Port access or dressing change Last Admin: 01/29/19 11:50 Dose: 10 ml Documented by: Sodium Chloride () 10 - 40 ml IV UD PRN PRN Reason: SALINE FLUSH Temazepam (Restoril) 30 mg PO QHS ERNESTO Last Admin: 01/30/19 22:42 Dose: 30 mg Documented by: Medical Necessity - Tobacco Use Smoking Status: Never smoker Tobacco Use: Non-smoker Assessment/Plan All Active Problems Septic shock (Acute) UTI (urinary tract infection) (Acute) Pneumonia (Acute) KELLEE (acute kidney injury) (Acute) Hypokalemia (Acute) Encephalopathy acute (Acute) 1. KELLEE likely due to sepsis syndrome, contrast nephropathy in presence of dehydration, cardiorenal syndrome LVEF 15%. Baseline creatinine 0.9 in December. Renal fxn stable 2. 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 3. Acute RML pulmonary embolus on anticoagulation 4. Paralysis with neurogenic bladder self caths with frequent UTIs 5. NSTEMI with +trop global cardiomyopathy EF 15% s/p heart cath with LV gram today. Watch for contrast nephropathy. No CAD 6. Septic shock with leukocytosis in immuncompromised host. Await cx, on stress dose steroids, pff pressors since last night
[2019-01-31] MEDS: 0.9% Saline Lock 10 ML Syringe IV ×2 (17:20→23:26)
[2019-01-31] MEDS: Acetaminophen 500 MG Tablet 1000 MG PO (21:22)
[2019-01-31] MEDS: APIXABAN 5 MG TABLET 10 MG PO (21:22)
[2019-01-31] MEDS: Temazepam 15 MG Capsule 30 MG PO (21:26)
[2019-02-01] VITALS (12 sets, daily range): BP systolic 120–147; BP diastolic 77–92; PULSE 69–94; RESP 16–18; TEMP 36.4–37; O2SAT 96–100
[2019-02-01] MEDS: 0.9% Saline Lock 10 ML Syringe IV (05:05)
[2019-02-01] MEDS: Baclofen 10 MG Tablet 5 MG PO ×3 (05:08→22:10)
[2019-02-01] MEDS: Hydrocortisone Sod Succinate 100 MG/2 ML Vial 50 MG IV ×4 (05:10→23:47)
[2019-02-01 05:20] LABS: Absolute Lymphocyte Count 0.31 X10^3/uL (0.83-4.51); Absolute Neutrophil Count 3.9 X10^3/uL (2.0-7.7); Hematocrit 31.7 % (37-47); Hemoglobin 9.6 g/dL (12.0-15.0); Lymphocyte # 0.31 X10^3/ul (4.0); Lymphocyte % 7.1 % (19-41); Mean Corp Hgb Conc 30.3 g/dL (32-36); Mean Corpuscular Hgb 24.4 pg (27.0-32.0); Mean Corpuscular Volume 80.7 fL (81-99); Mean Platelet Vol. 11.6 fl (6.2-12.0); Monocyte% 2.3 % (0-10); NRBC Flagged by Analyzer 0 % (0-5); Neutrophil % 89.5 % (47-70); POSITIVE COUNT YES; POSITIVE DIFFERENTIAL YES; Platelet Count 84 K/mm3 (150-450); RBC Distribution Width CV 17.7 % (11.6-14.6); RBC Distribution Width SD 51.8 fl (35.1-43.9); Red Blood Count 3.93 M/mm3 (4.2-5.4); White Blood Count 4.4 K/mm3 (4.4-11.0)
[2019-02-01 05:38] LABS: Albumin, Serum 2.1 g/dL (3.2-5.0); BUN 16 mg/dL (7-18); BUN/Creat Ratio 24.2 RATIO (10-20); Calcium,Total 8.4 mg/dL (8.5-10.1); Chloride 121 mmol/L (98-107); Creatinine, Serum 0.66 mg/dL (0.55-1.02); EST Glomerular Filtration Rate 98 mL/min (>60); Est Glom Filt Rate - Afr Amer 119 mL/min (>60); Estimated Creatinine Clearance 90.16 ml/min; Glucose 122 mg/dL (74-106); Magnesium 2.1 mg/dL (1.6-2.6); Phosphorus 1.5 mg/dL (2.5-4.9); Potassium 3.3 mmol/L (3.5-5.1); Sodium Level 149 mmol/L (136-145)
[2019-02-01 06:20] LABS: Differential Indicated SCAN CRITERIA MET
[2019-02-01 06:46] LABS: Differential Comment SCANNED; Hypochromasia 2+; Microcytosis 1+
--- NOTE | 2019-02-01 07:32 | PCM.PN.HOSP ---
Patient Problems: Active and Suspected Problems Septic shock (Acute) UTI (urinary tract infection) (Acute) Pneumonia (Acute) KELLEE (acute kidney injury) (Acute) Hypokalemia (Acute) Encephalopathy acute (Acute) Reason for Visit: Feels better, no issues over night Vitals/I&O's: Vital Signs Temp Pulse Resp BP Pulse Ox 97.6 F L 70 16 120/78 100 02/01/19 03:15 02/01/19 03:15 02/01/19 03:15 02/01/19 03:15 02/01/19 03:15 Oxygen Flow Rate (L/min) 2 Oxygen Delivery Method Room Air Weight: 171 lb 8.314 oz Body Mass Index (BMI) 25.2 Intake and Output for Last 24 Hours 01/30/19 01/31/19 02/01/19 23:59 23:59 23:59 Intake Total 3773.32 / 3893.32 2355.0 / 2355.0 490 / 490 Output Total 1400 / 1725 1400 / 1400 150 / 150 Balance 2373.32 / 2168.32 955.0 / 955.0 340 / 340 General: Alert, Oriented x3, Cooperative, No apparent distress HEENT: Atraumatic, PERRLA, EOMI, Normocephalic Oral: Moist Mucosa Neck: Supple, No JVD Lungs: Clear to auscultation, Normal air movement, No rhonchi, No wheeze, No rales, Diminished Cardiovascular: Regular rate, Regular Rhythm, Normal S1, Normal S2, No murmurs Abdomen: Soft, Non Tender, Non-Distended, No Hepato-splenomegaly Extremities: No edema, Capillary Refill Less than 3 Seconds Skin: No rashes, No breakdown Neurological: Neuro grossly intact - Bilateral paraplegia which is chronic for her after metastasis of renal cell cancer, Sensory exam intact to light touch and pain - At baseline for her Psych/Mental Status: Normal Affect, Appropriate Microbiology Past 72 Hours 01/28/19 21:30 Blood Culture (Wb) - Right Hand Blood Culture - Preliminary No growth in 48 hours. 01/28/19 21:35 Blood Culture (Wb) - Port Blood Culture - Preliminary No growth in 48 hours. 01/29/19 04:05 Urine Catheter - Blount Urine Culture - Final Culture exhibits no growth. 01/29/19 01:30 Mucosa - Nose Respiratory Panel (PCR) - Final 01/29/19 04:05 Urine Catheter - Blount Legionella Antigen - Final 01/29/19 04:05 Urine Catheter - [facility] Streptococcus pneumoniae Antigen (M - Final Laboratory Results 01/31/19 08:36: Activated Clotting Time 109 02/01/19 05:00: Sodium 149 H, Potassium 3.3 L, Chloride 121 H, Carbon Dioxide 20.0 L, BUN 16, Creatinine 0.66, Estim Creat Clear Calc 90.16, Est GFR (MDRD) Af Amer 119, Est GFR (MDRD) Non-Af 98, BUN/Creatinine Ratio 24.2 H, Glucose 122 H, Calcium 8.4 L, Phosphorus 1.5 L, Magnesium 2.1, Albumin 2.1 L 02/01/19 05:00: WBC 4.4, RBC 3.93 L, Hgb 9.6 L, Hct 31.7 L, MCV 80.7 L, MCH 24.4 L, MCHC 30.3 L, RDW Std Deviation 51.8 H, RDW Coeff of Deborah 17.7 H, Plt Count 84 L, MPV 11.6, Immature Gran % (Auto) 1.100 H, Neut % (Auto) 89.5 H, Lymph % (Auto) 7.1 L, [place] % (Auto) 2.3, Eos % (Auto) 0.0, Baso % (Auto) 0.0, Absolute Neuts (auto) 3.9, Absolute Lymphs (auto) 0.31 L, Nucleated RBC % 0, Differential Comment SCANNED, Hypochromasia 2+, Microcytosis 1+ Current Medications Acetaminophen (Tylenol) 1,000 mg PO Q8H PRN PRN PRN Reason: Pain 1-10 or Fever Last Admin: 01/31/19 21:22 Dose: 1,000 mg Documented by: Albuterol Sulfate (Ventolin Aerosols) 2.5 mg INHALATION Q2H PRN PRN PRN Reason: dyspnea, wheezing Apixaban (Eliquis) 10 mg PO BID [facility] Last Admin: 01/31/19 21:22 Dose: 10 mg Documented by: Aspirin (Aspirin, Baby) 81 mg PO DAILY@0800 [facility] Last Admin: 01/31/19 06:11 Dose: 81 mg Documented by: Baclofen (Lioresal) 5 mg PO TID [facility] Last Admin: 02/01/19 05:08 Dose: 5 mg Documented by: Dextrose (D50w Syringe) 0 gm IV X1 PRN; Protocol PRN Reason: Hypoglycemia Fentanyl Citrate (Sublimaze (100mcg Ampule)) 25 mcg IV Q2H PRN PRN PRN Reason: Pain Score 4-10/10 Last Admin: 01/30/19 19:41 Dose: 25 mcg Documented by: Glucagon () 1 mg IM .X1 PRN PRN Reason: Hypoglycemia Heparin Sodium (Beef Lung) () 50 units IV UD PRN PRN Reason: Port-a-Cath (VAD)Heparin Flush Heparin Sodium (Beef Lung) (Heparin 500 Unit/5 Ml (100/Ml)) 500 unit IV UD PRN PRN Reason: HEPARIN FLUSH Hydrocortisone Sodium Succinate (Solu-Cortef) 50 mg IV Q6 [facility] Last Admin: 02/01/19 05:10 Dose: 50 mg Documented by: Vancomycin IV Pharmacy to Dose (1 ea/ Sodium Chloride) 500 mls @ 250 mls/hr IV X1 PRN; Protocol PRN Reason: Rx to Dose Piperacillin Sod/Tazobactam (Sod 3.375 gm/ Sodium Chloride) 50 mls @ 12.5 mls/hr IV Q8 [facility] Last Admin: 02/01/19 05:13 Dose: 12.5 mls/hr Documented by: Sodium Chloride () 250 mls @ 15 mls/hr IV .[id number] PRN PRN Reason: Saline Flush Last Infusion: 01/30/19 05:51 Dose: 0 mls/hr Documented by: Sodium Chloride () 1,000 mls @ 0 mls/hr IV .Q0M [facility] Vancomycin HCl (Vancomycin) 1,000 mg in 200 mls @ 200 mls/hr IV Q12H [facility] Last Infusion: 02/01/19 01:05 Dose: Infused Documented by: Potassium Phosphate 30 mm/ (Sodium Chloride) 260 mls @ 42 mls/hr IV X1 ONE Stop: 02/01/19 12:22 Last Admin: 02/01/19 06:39 Dose: 42 mls/hr Documented by: Labetalol HCl (Trandate) 5 mg IV X1 PRN PRN Reason: SBP > 160 prior to sheath pull Stop: 02/02/19 08:40 Nitroglycerin (Nitrostat) 0.4 mg SUBLINGUAL Q5M PRN PRN Reason: CARDIAC/CHEST PAIN Nystatin (Nystatin) 500,000 unit PO 4X/DAY [facility] Last Admin: 01/31/19 21:21 Dose: 500,000 unit Documented by: Ondansetron HCl (Zofran) 4 mg IV Q8H PRN PRN PRN Reason: NAUSEA/VOMITING Last Admin: 01/29/19 12:07 Dose: 4 mg Documented by: Sodium Chloride () 10 - 40 ml IV UD PRN PRN Reason: Port-a-Cath (VAD) Flush Last Admin: 02/01/19 05:05 Dose: 30 ml Documented by: Sodium Chloride (0.9% Nacl (Sterile) Posiflush) 10 - 40 ml IV UD PRN PRN Reason: Port access or dressing change Last Admin: 01/29/19 11:50 Dose: 10 ml Documented by: Sodium Chloride () 10 - 40 ml IV UD PRN PRN Reason: SALINE FLUSH Temazepam (Restoril) 30 mg PO QHS [facility] Last Admin: 01/31/19 21:26 Dose: 30 mg Documented by: Medical Necessity - Tobacco Use Smoking Status: Never smoker Tobacco Use: Non-smoker Assessment/Plan All Active Problems Septic shock (Acute) UTI (urinary tract infection) (Acute) Pneumonia (Acute) KELLEE (acute kidney injury) (Acute) Hypokalemia (Acute) Encephalopathy acute (Acute) 1. Septic shock secondary to UTI/KELLEE/N STEMI with troponin elevation/metabolic encephalopathy secondary to sepsis -No longer on levophed -Continue with vancomycin and transition Zosyn to cipro, urine culture exhibits no growth however culture from 01/27 with Pseudomonas sensitive to cipro, and 10-50,000 enterococcus sensitive to vanc -Encephalopathy has resolved -Cardiac cath today was unremarkable, EF of 35% with normal coronaries assumption is Takotsubo's -KELLEE has resolved however she is hypokalemic/hypophosphatemic this morning will replace 2. Acute PE -On heparin drip was DC'd -We will transition to Eliquis which given her metastatic renal cell carcinoma, she will need to continue likely indefinitely 3. Baseline paraplegia/chronic pain syndrome/neurogenic bladder/metastatic renal cancer -Paraplegia secondary to renal cell carcinoma that had gone to the spine -Continue with baclofen and temazepam -She does self cath for her neurogenic bladder and has frequent UTIs DVT: Eliquis Code Visit Inpatient E&M: 74494 Subs Hosp L2
[2019-02-01] MEDS: Aspirin 81 MG TAB.CHEW PO (09:07)
[2019-02-01] MEDS: NYSTATIN 500,000 UNIT/5 ML UDC 500000 UNIT PO ×4 (09:39→22:12)
[2019-02-01] MEDS: Ciprofloxacin 500 MG Tablet PO ×2 (09:39→22:11)
[2019-02-01] MEDS: APIXABAN 5 MG TABLET 10 MG PO ×2 (09:39→22:09)
[2019-02-01 11:02] LABS: Vancomycin, Trough Level 21.2 ug/mL (5.0-15.0)
[2019-02-01] MEDS: Menthol/Lanolin/Calamine/Znox 113 GM Tube 1 APPLIC TOPICAL ×2 (11:52→22:10)
--- NOTE | 2019-02-01 12:29 | PN_ITS ---
Subjective: Patient did well overnight. Patient denies any specific complaints on my arrival. Patient asking to go home. Patient denies any nausea or vomiting. Patient is tolerating potassium supplementation well. General: Alert, Oriented x3, Cooperative, No apparent distress, Well developed, Well nourished, - - No conversational dyspnea HEENT: Atraumatic, PERRLA, EOMI, Normocephalic, - - No scleral icterus or injection noted Oral: Moist Mucosa, No Gingival or Mucosal Lesions/ Ulcerations Neck: Supple, No JVD, No Nodes, Trachea Midline Lungs: Clear to auscultation, Normal air movement, No rhonchi, No wheeze, No rales Cardiovascular: Regular rate, Regular Rhythm, Normal S1, Normal S2, No murmurs, No rub noted, No Gallop Abdomen: Bowel Sounds Present, Soft, Non Tender, Non-Distended Extremities: No clubbing, No cyanosis Skin: No rashes, No breakdown Musculoskeletal: No Tenderness to Palpation of Joints or Extremities Lymphatic: No Cervical, Supraclavicular, or Inguinal Adenopathy Neurological: - - Grossly unchanged compared to previous. Lower extremity paralysis at baseline Psych/Mental Status: Alert and oriented to time, place, person, mood and affect Vital Signs Temp Pulse Resp BP Pulse Ox 36.6 C 82 16 128/83 H 98 02/01/19 12:00 02/01/19 12:21 02/01/19 12:00 02/01/19 12:00 02/01/19 12:00 Oxygen Flow Rate (L/min) 2 Oxygen Delivery Method Room Air Weight: 77.8 kg Body Mass Index (BMI) 25.2 Intake and Output for Last 24 Hours 01/30/19 01/31/19 02/01/19 23:59 23:59 23:59 Intake Total 3773.32 / 3893.32 2355.0 / 2355.0 690 / 690 Output Total 1400 / 1725 1400 / 1400 350 / 350 Balance 2373.32 / 2168.32 955.0 / 955.0 340 / 340 Labs (Last 48 Hours) 01/30/19 01/30/19 01/30/19 14:00 20:50 22:35 WBC RBC Hgb Hct MCV MCH MCHC RDW Std Deviation RDW Coeff of Deborah Plt Count MPV Immature Gran % (Auto) Neut % (Auto) Lymph % (Auto) [place] % (Auto) Eos % (Auto) Baso % (Auto) Absolute Neuts (auto) Absolute Lymphs (auto) Nucleated RBC % Differential Comment Hypochromasia Microcytosis Ovalocytes Crenated Cell APTT 50.1 H 88.6 H Activated Clotting Time Sodium Potassium Chloride Carbon Dioxide Anion Gap BUN Creatinine Estim Creat Clear Calc Est GFR (MDRD) Af Amer Est GFR (MDRD) Non-Af BUN/Creatinine Ratio Glucose Calcium Phosphorus Magnesium Albumin Vancomycin Trough 10.5 01/31/19 01/31/19 01/31/19 03:45 03:45 03:45 WBC 5.4 RBC 3.92 L Hgb 9.6 L Hct 31.9 L MCV 81.4 MCH 24.5 L MCHC 30.1 L RDW Std Deviation 50.6 H RDW Coeff of Deborah 17.3 H Plt Count 85 L MPV 10.1 Immature Gran % (Auto) 0.600 Neut % (Auto) 90.9 H Lymph % (Auto) 5.4 L [place] % (Auto) 2.4 Eos % (Auto) 0.7 Baso % (Auto) 0.0 Absolute Neuts (auto) 4.9 Absolute Lymphs (auto) 0.29 L Nucleated RBC % 0 Differential Comment SCANNED Hypochromasia 2+ Microcytosis Ovalocytes 2+ Crenated Cell 1+ APTT 99.2 H* Activated Clotting Time Sodium 149 H Potassium 3.0 L Chloride 119 H Carbon Dioxide 20.0 L Anion Gap 10 BUN 19 H Creatinine 0.72 Estim Creat Clear Calc 82.65 Est GFR (MDRD) Af Amer 109 Est GFR (MDRD) Non-Af 90 BUN/Creatinine Ratio 26.5 H Glucose 89 Calcium 7.8 L Phosphorus Magnesium Albumin Vancomycin Trough 01/31/19 02/01/19 02/01/19 08:36 05:00 05:00 WBC 4.4 RBC 3.93 L Hgb 9.6 L Hct 31.7 L MCV 80.7 L MCH 24.4 L MCHC 30.3 L RDW Std Deviation 51.8 H RDW Coeff of Deborah 17.7 H Plt Count 84 L MPV 11.6 Immature Gran % (Auto) 1.100 H Neut % (Auto) 89.5 H Lymph % (Auto) 7.1 L [place] % (Auto) 2.3 Eos % (Auto) 0.0 Baso % (Auto) 0.0 Absolute Neuts (auto) 3.9 Absolute Lymphs (auto) 0.31 L Nucleated RBC % 0 Differential Comment SCANNED Hypochromasia 2+ Microcytosis 1+ Ovalocytes Crenated Cell APTT Activated Clotting Time 109 Sodium 149 H Potassium 3.3 L Chloride 121 H Carbon Dioxide 20.0 L Anion Gap BUN 16 Creatinine 0.66 Estim Creat Clear Calc 90.16 Est GFR (MDRD) Af Amer 119 Est GFR (MDRD) Non-Af 98 BUN/Creatinine Ratio 24.2 H Glucose 122 H Calcium 8.4 L Phosphorus 1.5 L Magnesium 2.1 Albumin 2.1 L Vancomycin Trough 02/01/19 10:14 WBC RBC Hgb Hct MCV MCH MCHC RDW Std Deviation RDW Coeff of Deborah Plt Count MPV Immature Gran % (Auto) Neut % (Auto) Lymph % (Auto) [place] % (Auto) Eos % (Auto) Baso % (Auto) Absolute Neuts (auto) Absolute Lymphs (auto) Nucleated RBC % Differential Comment Hypochromasia Microcytosis Ovalocytes Crenated Cell APTT Activated Clotting Time Sodium Potassium Chloride Carbon Dioxide Anion Gap BUN Creatinine Estim Creat Clear Calc Est GFR (MDRD) Af Amer Est GFR (MDRD) Non-Af BUN/Creatinine Ratio Glucose Calcium Phosphorus Magnesium Albumin Vancomycin Trough 21.2 H Microbiology 01/28/19 21:30 Blood Culture (Wb) - Right Hand Blood Culture - Preliminary No growth in 48 hours. 01/28/19 21:35 Blood Culture (Wb) - Port Blood Culture - Preliminary No growth in 48 hours. 01/29/19 04:05 Urine Catheter - Blount Urine Culture - Final Culture exhibits no growth. Medical Necessity - Tobacco Use Smoking Status: Never smoker Tobacco Use: Non-smoker Assessment/Plan All Active Problems Septic shock (Acute) UTI (urinary tract infection) (Acute) Pneumonia (Acute) KELLEE (acute kidney injury) (Acute) Hypokalemia (Acute) Encephalopathy acute (Acute) RECOMMENDATIONS: 1. Agree with choice of antibiotics. 2. Judicious use of supplemental IV fluids, given depressed ejection fraction. 3. Transitioned over to Eliquis therapy. This will need to be continued for at least 6 months. 4. Await results of heart catheterization 5. Okay to discontinue stress dose steroids from my perspective 6. Hemodynamically stable on room air. Will sign off from a critical care perspective IMPRESSIONS: 1. Septic shock Most likely secondary to complicated urinary tract infection. Cultures from [facility] have shown enterococcus and Pseudomonas. I agree with the new antibiotic selection. She has been adequately volume resuscitated. Patient is currently off of pressor therapy. Patient reportedly had a positive culture at [facility] from the urine. Cultures here have been negative. 2. Acute kidney injury Neurology following. Improved with volume expansion and stabilization of hemodynamics. Likely ischemic ATN in the setting of #1. Blount catheter is currently in place. Continue to monitor urine output. No current indication for renal replacement therapy. 3. NSTEMI/Troponin elevation The patient experienced a treat troponin leak of 22. Patient's heart catheterization was unremarkable. Defer to cardiology on optimization. She reportedly had apical ballooning syndrome. 4. Acute pulmonary emboli Continue systemic anticoagulation. 5. Metabolic/infectious encephalopathy Improved with aggressive supportive measures including broad-spectrum antimicrobials and supplemental IV fluids. 6. History of renal cell carcinoma undergoing chemotherapy/baseline paraplegia/chronic pain syndrome Complicates care, management, recovery and prognosis. Dietary advancement per speech therapy recommendations. Code Visit Inpatient E&M: 79992 Subs Hosp L2
--- NOTE | 2019-02-01 12:42 | PCM.RX.CS ---
Consult Pharmacy has been consulted to manage selected antiobiotic: Vancomycin Type of Consult: Follow-up Suspected Infection: Sepsis Prior Doses of Antibiotics Received/Current Regimen: Current regimen is 1000mg IV q12h Labs: Sodium 149 mmol/L (136-145) H 02/01/19 05:00 Potassium 3.3 mmol/L (3.5-5.1) L 02/01/19 05:00 Chloride 121 mmol/L (98-107) H 02/01/19 05:00 Carbon Dioxide 20.0 mmol/L (21.0-32.0) L 02/01/19 05:00 Anion Gap 10 (5-15) 01/31/19 03:45 BUN 16 mg/dL (7-18) 02/01/19 05:00 Creatinine 0.66 mg/dL (0.55-1.02) 02/01/19 05:00 Est GFR (MDRD) Af Amer 119 mL/min (>60) 02/01/19 05:00 Est GFR (MDRD) Non-Af 98 mL/min (>60) 02/01/19 05:00 BUN/Creatinine Ratio 24.2 RATIO (10-20) H 02/01/19 05:00 Glucose 122 mg/dL (74-106) H 02/01/19 05:00 Vancomycin Trough 21.2 ug/mL (5.0-15.0) H 02/01/19 10:14 Microbiology: Microbiology 01/28/19 21:30 Blood Culture (Wb) - Right Hand Blood Culture - Preliminary No growth in 48 hours. 01/28/19 21:35 Blood Culture (Wb) - Port Blood Culture - Preliminary No growth in 48 hours. 01/29/19 04:05 Urine Catheter - Blount Urine Culture - Final Culture exhibits no growth. 01/29/19 01:30 Mucosa - Nose Respiratory Panel (PCR) - Final 01/29/19 04:05 Urine Catheter - Blount Legionella Antigen - Final 01/29/19 04:05 Urine Catheter - [facility]ount Streptococcus pneumoniae Antigen (M - Final 01/28/19 21:32 Mucosa - Throat Influenza Types A,B Direct FA (DANNY) - Final Weight used for dosin.8 kg Estimated Creatinine Clearance: 90 ml/min Goal Trough: 15-20 mcg/mL Pharmacy Plan for Drug Dosing: The vancomycin trough drawn before this morning's dose was 21.2 mg/L, which is slightly higher than goal range of 15-20. Due to this, this morning's dose was then held and not administered. The plan is to restart vancomycin tonight which will give the level 24 hours to come back down below 20 (last dose administered was last night). Will restart at a lower dose of 750mg IV q12h and recheck the trough before the 4th dose. Pharmacy Service will continue to monitor and adjust dosing as required. Follow-Up Labs: Trough Vancomycin Labs to be done on [date and time ordered]: 02/03/19 10:30
--- NOTE | 2019-02-01 15:27 | CASEMGMT ---
SW met with patient, introduced self and role at [facility]. SW spoke with patient about Palliative Care. She was open to hearing more about it, but wanted to talk with her first. SW gave her the pamphlet for Palliative Care and told her to just ask for SW if she would like a referral. Suzie ALCARAZ
[2019-02-01] MEDS: Acetaminophen 500 MG Tablet 1000 MG PO (22:10)
[2019-02-01] MEDS: Temazepam 15 MG Capsule 30 MG PO (22:20)
[2019-02-02 03:00] VITALS: PULSE 74
[2019-02-02 03:30] VITALS: BP 130/77; PULSE 70; RESP 16; TEMP 36.6; O2SAT 99
[2019-02-02] MEDS: 0.9 % NaCl (Sterile) Posiflush 10 mL IV (05:20)
[2019-02-02] MEDS: Baclofen 10 MG Tablet 5 MG PO ×2 (05:37→12:55)
[2019-02-02] MEDS: Hydrocortisone Sod Succinate 100 MG/2 ML Vial 50 MG IV ×2 (05:37→12:55)
[2019-02-02 05:55] LABS: Anion Gap 7 (5-15); BUN 13 mg/dL (7-18); BUN/Creat Ratio 25.6 RATIO (10-20); Calcium,Total 8.2 mg/dL (8.5-10.1); Chloride 120 mmol/L (98-107); Creatinine, Serum 0.51 mg/dL (0.55-1.02); EST Glomerular Filtration Rate 134 mL/min (>60); Est Glom Filt Rate - Afr Amer 162 mL/min (>60); Estimated Creatinine Clearance 116.68 ml/min; Glucose 109 mg/dL (74-106); Potassium 3.2 mmol/L (3.5-5.1); Sodium Level 151 mmol/L (136-145)
[2019-02-02 06:50] VITALS: PULSE 71
[2019-02-02 07:52] VITALS: O2SAT 96
[2019-02-02 09:30] VITALS: BP 136/81; PULSE 73; RESP 16; TEMP 36.5; O2SAT 95
[2019-02-02] MEDS: Aspirin 81 MG TAB.CHEW PO (09:45)
[2019-02-02] MEDS: Menthol/Lanolin/Calamine/Znox 113 GM Tube 1 APPLIC TOPICAL (09:45)
[2019-02-02] MEDS: NYSTATIN 500,000 UNIT/5 ML UDC 500000 UNIT PO ×2 (09:46→12:56)
[2019-02-02] MEDS: APIXABAN 5 MG TABLET 10 MG PO (09:46)
[2019-02-02] MEDS: Ciprofloxacin 500 MG Tablet PO (09:46)
--- NOTE | 2019-02-02 10:53 | DCINST_ITS ---
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 Septic shock (Acute) UTI (urinary tract infection) (Acute) Pneumonia (Acute) KELLEE (acute kidney injury) (Acute) Hypokalemia (Acute) Encephalopathy acute (Acute) Renal carcinoma (Chronic) Chronic pain syndrome (Chronic) You will use the following diet at home:: Regular Your food should be the consistency of: Regular Your liquids should be the consistency of: Regular/Thin Discharge Activity: Return to Normal Activity Call your doctor if you observe: Fever of 101 or Higher, Shortness of breath, Dizziness, Fainting spells, Swelling in the ankles, Chest pain, Increased palpitations (irregular heartbeat) Additional Instructions: Obtain a BMP in 3-5 days to monitor Sodium and potassium levels Allergies/Adverse Reactions: Allergies No Known Allergies Allergy (Verified 01/28/19 20:53) Medications to take at Discharge Baclofen [Lioresal] 5 mg PO TID 12/12/18 Furosemide [Lasix] 20 mg PO PRN PRN 12/12/18 Gabapentin [Neurontin] 600 mg PO Q8H 12/12/18 Ondansetron [Zofran] 8 mg PO Q8H PRN PRN 12/12/18 Oxycodone Myristate [Xtampza ER] 18 mg PO Q12H 12/12/18 Prednisone 5 mg PO DAILY 12/12/18 Temazepam [Restoril] 30 mg PO QHS 12/12/18 Tizanidine HCl [Zanaflex] 4 mg PO Q8H PRN 12/12/18 Apixaban [Eliquis] 10 mg PO BID #30 tab 02/02/19 Ciprofloxacin [Cipro] 500 mg PO BID #6 tab 02/02/19 The following prescriptions were given: Ciprofloxacin [Cipro] 500 mg PO BID #6 tab Transmission Status: Pending to [facility] Apixaban [Eliquis] 10 mg PO BID #30 tab Transmission Status: Pending to [facility] Primary Care Physician: Aaron Chand MD [Primary Care Provider] - Please follow up with your Primary Care Physician in: 3-5 days Test Results: Test results from this visit will be discussed in further detail at your follow- up appointment, if applicable.
--- NOTE | 2019-02-02 10:56 | DS.PCM_ITS ---
Discharge Date and Diagnosis - Problem List Patient Problems: Active and Suspected Problems Septic shock (Acute) UTI (urinary tract infection) (Acute) Pneumonia (Acute) KELLEE (acute kidney injury) (Acute) Hypokalemia (Acute) Encephalopathy acute (Acute) Date of Admission: 01/28/19 Date of Discharge: 02/02/19 - Primary Discharge Diagnosis Active and Suspected Problems Septic shock (Acute) UTI (urinary tract infection) (Acute) Pneumonia (Acute) KELLEE (acute kidney injury) (Acute) Hypokalemia (Acute) Encephalopathy acute (Acute) - Secondary Discharge Diagnosis Chronic Problems History of left heart catheterization (Chronic 01/31/19) Non obstructive coronary arteries Segmented LV systolic dysfunction- Moderate LVEF: by LV gram 35 % 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 Atelectasis and/or infiltrate in both lower lobes worse on the left. Echo: Interpretation Summary Normal LV size. The estimated ejection fraction is 15 %. Severe segmental systolic dysfunction (see wall motion). Stage 1 diastolic dysfunction. The global longitudinal strain = -8.4% (abnormal). Contrast injection was performed. Renal US: IMPRESSION: Surgically absent right kidney. Normal appearance of the left kidney. 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 RECOMMENDATIONS Management as per referring Web Analytics Specialist Manual sheath removal. Check LE dopplers for DVT; if positive consider usp anticoagulation. Relook at CT to confirm presence of PE. Will d/w Dr Montgomery. Consults: Cardiology Pulmonology/ICU Oncology Nephrology Operations: None Procedures: 2-D Echocardiogram, Cardiac catheterization Summary of Care Provided: Per HPI: The patient is a 53 y/o F w/ PMHx: Renal Cell Carcinoma ongoing chemotherapy last the day prior to current presentation, Chronic Neurogenic Bladder with self catheterization program with paraplegia following lesion into her spine, Chronic Pain Syndrome who presents to the [facility] ED on 01/28/19 with history of onset of fatigue, malaise, nausea with emesis with fevers and chills initially starting 4 days prior with PCP evaluation today prior to current presentation with diagnosis of UTI at that time with initiation of Diflucan and Augmentin with sudden extreme decline over the last 1-2 hours per spouse report, noted to be febrile to 104 which decreased with IBU and onset lethargy. Per discussion with spouse patient self catheterizes from 3-6 times per day and n otes that she does feel bladder spasms when her bladder is full. Work-up in the ED included T 99.3, heart rate 77, BP initially 56/36 with repeat 70/53, respiratory rate 14, 99% on 2 L nasal cannula, CBC with W BC 14.7, heme globin 14, platelet 170 with notable left shift, coags with PT 16.5, INR 1.4, PTT 44.7, CMP with potassium 3, BUN/creatinine 26/1.53, glucose 135, lactic acid 4.2, AST/ALT 150/52, alk phos 124, troponin 22.9, rapid influenza pending, blood culture x2 pending per ED, chest x-ray with atelectasis and/or scarring bilateral lower lobes, left greater than right, EKG with ST w/ mild elevation V2. In the ED patient initiated on heparin drip with bolus, norepinephrine as well as vasopressin initiated, Zosyn, vancomycin as well as normal saline in addition to fentanyl administered. CTPA preliminary evaluation concerning for small BL PE and ? PNA versus scarring. Additionally given CTPA findings per review again with Cardiology, decision to attempt to administer Brillinta load given improving mental status in the ED. Hospital Course: 1. Septic shock secondary to UTI/KELLEE/metabolic encephalopathy secondary to sepsis/hypokalemia/hypernatremia/[id number]-elne-old female who is undergoing chemotherapy for renal cell carcinoma after having a right nephrectomy, also has a neurogenic bladder that she straight caths in order to urinate and she has had several UTIs because of this. She had been seen previously in the ER for a UTI and was started on Augmentin. The urine culture ultimately came back positive from an outside lab with Pseudomonas at greater than 100,000 as well as enterococcus less than 50,000. The Pseudomonas is sensitive to Cipro and she was changed from Zosyn and Vanco to just p.o. Cipro, which she will complete 3 more days of. Also she is on chronic prednisone therapy as an outpatient, and therefore she was also initiate on stress dosing of Solu-Cortef at 50 mg IV every 6. This can just be discontinued and she can resume her home prednisone dosing.. Part of the issue with her Bernabe had been hypernatremia as well as hypokalemia. This was also found to be in conjunction with a hypophosphatemia. She is received replacement for both the potassium and the phosphorus for the last 2 days, today her potassium was 3.2 and her phosphorus was 2 prior to initiation of replacement. I do recommend that she have a follow-up BMP on the outpatient side for monitoring of her hypernatremia and her hypokalemia. I did encourage increased p.o. intake of water, and her KELLEE also resolved and went back to baseline prior to discharge. I discussed the risks and benefits of discharge with her and she expressed understanding. 2. NSTEMI/right-sided PE-initially on admission she had an elevated troponin and an echo which showed an EF of 15%. Because of this she underwent a cardiac catheter showed normal coronary arteries and a recovered EF of 35%, as her sepsis improved and resolved. Because her coronary arteries were normal, I did not institute any high intensity statin therapy, also because of her hypotension and being on pressor support during this hospitalization I elected to defer initiation of beta-lucero and LUIS inhibitor therapy on the outpatient side pending follow-up with her PCP for evaluation of her blood pressure and heart rate. She will likely need a repeat echo in a few months to evaluate her EF and wall motion. Initially because of her troponin she was started on aspirin however she was also found to have a PE and was started on anticoagulation. She was discharged on 10 mg of Eliquis to be taken twice daily for 3 more days to complete a 7-day initiation and then to go down to 5 mg p.o. twice daily for maintenance. She will need to follow-up with her oncologist for both the PE as well as the renal cell carcinoma. 3. Her other medical diagnoses were evaluated and her home medications were continued where appropriate Patient Problems: Active and Suspected Problems Septic shock (Acute) UTI (urinary tract infection) (Acute) Pneumonia (Acute) KELLEE (acute kidney injury) (Acute) Hypokalemia (Acute) Encephalopathy acute (Acute) - Physical Exam Vitals/I&O's: Vital Signs Temp Pulse Resp BP Pulse Ox 97.7 F L 73 16 136/81 H 95 02/02/19 09:30 02/02/19 09:30 02/02/19 09:30 02/02/19 09:30 02/02/19 09:30 Oxygen Flow Rate (L/min) 2 Oxygen Delivery Method Room Air Weight: 170 lb 6.677 oz Body Mass Index (BMI) 25.2 Intake and Output for Last 24 Hours 01/31/19 02/01/19 02/02/19 23:59 23:59 23:59 Intake Total 2355.0 / 2355.0 1515 / 1755 360 / 360 Output Total 1400 / 1400 500 / 750 450 / 450 Balance 955.0 / 955.0 1015 / 1005 -90 / -90 General: Alert, Oriented x3, Cooperative, No apparent distress HEENT: Atraumatic, PERRLA, EOMI, Normocephalic Oral: Moist Mucosa Neck: Supple, No JVD Lungs: Clear to auscultation, Normal air movement, No rhonchi, No wheeze, No rales, Diminished Cardiovascular: Regular rate, Regular Rhythm, Normal S1, Normal S2, No murmurs Abdomen: Soft, Non Tender, Non-Distended, No Hepato-splenomegaly Extremities: No edema, Capillary Refill Less than 3 Seconds Skin: No rashes, No breakdown Neurological: Neuro grossly intact - Bilateral paraplegia which is chronic for her after metastasis of renal cell cancer, Sensory exam intact to light touch and pain - At baseline for her Psych/Mental Status: Normal Affect, Appropriate Microbiology Past 72 Hours 01/28/19 21:30 Blood Culture (Wb) - Right Hand Blood Culture - Preliminary No growth in 48 hours. 01/28/19 21:35 Blood Culture (Wb) - Port Blood Culture - Preliminary No growth in 48 hours. 01/29/19 04:05 Urine Catheter - Blount Urine Culture - Final Culture exhibits no growth. Laboratory Results 02/01/19 10:14: Vancomycin Trough 21.2 H 02/02/19 05:15: Sodium 151 H, Potassium 3.2 L, Chloride 120 H, Carbon Dioxide 24.0, Anion Gap 7, BUN 13, Creatinine 0.51 L, Estim Creat Clear Calc 116.68, Est GFR (MDRD) Af Amer 162, Est GFR (MDRD) Non-Af 134, BUN/Creatinine Ratio 25.6 H, Glucose 109 H, Calcium 8.2 L, Phosphorus 2.0 L Current Medications Acetaminophen (Tylenol) 1,000 mg PO Q8H PRN PRN PRN Reason: Pain 1-10 or Fever Last Admin: 02/01/19 22:10 Dose: 1,000 mg Documented by: Albuterol Sulfate (Ventolin Aerosols) 2.5 mg INHALATION Q2H PRN PRN PRN Reason: dyspnea, wheezing Apixaban (Eliquis) 10 mg PO BID [facility] Last Admin: 02/02/19 09:46 Dose: 10 mg Documented by: Aspirin (Aspirin, Baby) 81 mg PO DAILY@0800 [facility] Last Admin: 02/02/19 09:45 Dose: 81 mg Documented by: Baclofen (Lioresal) 5 mg PO TID [facility] Last Admin: 02/02/19 05:37 Dose: 5 mg Documented by: Calamine/Phenol (Calmoseptine Ointment) 1 applic TOPICAL BID [facility]; Protocol Last Admin: 02/02/19 09:45 Dose: 1 applicatio Documented by: Ciprofloxacin HCl (Cipro) 500 mg PO BID [facility] Last Admin: 02/02/19 09:46 Dose: 500 mg Documented by: Dextrose (D50w Syringe) 0 gm IV X1 PRN; Protocol PRN Reason: Hypoglycemia Fentanyl Citrate (Sublimaze (100mcg Ampule)) 25 mcg IV Q2H PRN PRN PRN Reason: Pain Score 4-10/10 Last Admin: 01/30/19 19:41 Dose: 25 mcg Documented by: Glucagon () 1 mg IM .X1 PRN PRN Reason: Hypoglycemia Hydrocortisone Sodium Succinate (Solu-Cortef) 50 mg IV Q6 [facility] Last Admin: 02/02/19 05:37 Dose: 50 mg Documented by: Sodium Chloride () 250 mls @ 15 mls/hr IV .[id number] PRN PRN Reason: Saline Flush Last Infusion: 01/30/19 05:51 Dose: 0 mls/hr Documented by: Sodium Chloride () 1,000 mls @ 0 mls/hr IV .Q0M [facility] Potassium Phosphate 30 mm/ (Sodium Chloride) 260 mls @ 42 mls/hr IV X1 ONE Stop: 02/02/19 14:26 Last Admin: 02/02/19 10:04 Dose: 42 mls/hr Documented by: Nitroglycerin (Nitrostat) 0.4 mg SUBLINGUAL Q5M PRN PRN Reason: CARDIAC/CHEST PAIN Nystatin (Nystatin) 500,000 unit PO 4X/DAY [facility] Last Admin: 02/02/19 09:46 Dose: 500,000 unit Documented by: Ondansetron HCl (Zofran) 4 mg IV Q8H PRN PRN PRN Reason: NAUSEA/VOMITING Last Admin: 01/29/19 12:07 Dose: 4 mg Documented by: Sodium Chloride (0.9% Nacl (Sterile) Posiflush) 10 - 40 ml IV UD PRN PRN Reason: Port access or dressing change Last Admin: 02/02/19 05:20 Dose: 20 ml Documented by: Temazepam (Restoril) 30 mg PO QHS [facility] Last Admin: 02/01/19 22:20 Dose: 30 mg Documented by: Discharge Activity: Return to Normal Activity Call your doctor if you observe: Fever of 101 or Higher, Shortness of breath, Dizziness, Fainting spells, Swelling in the ankles, Chest pain, Increased palpitations (irregular heartbeat) Home Medications: Medications to take at Discharge Baclofen [Lioresal] 5 mg PO TID 12/12/18 Furosemide [Lasix] 20 mg PO PRN PRN 12/12/18 Gabapentin [Neurontin] 600 mg PO Q8H 12/12/18 Ondansetron [Zofran] 8 mg PO Q8H PRN PRN 12/12/18 Oxycodone Myristate [Xtampza ER] 18 mg PO Q12H 12/12/18 Prednisone 5 mg PO DAILY 12/12/18 Temazepam [Restoril] 30 mg PO QHS 12/12/18 Tizanidine HCl [Zanaflex] 4 mg PO Q8H PRN 12/12/18 Apixaban [Eliquis] 10 mg PO BID #30 tab 02/02/19 Ciprofloxacin [Cipro] 500 mg PO BID #6 tab 02/02/19 Following Prescrptions Were Given to Patient: Ciprofloxacin [Cipro] 500 mg PO BID #6 tab Transmission Status: Received by [facility] Apixaban [Eliquis] 10 mg PO BID #30 tab Transmission Status: Received by [facility] Primary Care Physician: Aaron Chand MD [Primary Care Provider] - Please follow up with your Primary Care Physician in: 3-5 days Disposition: Home Minutes spent on discharge:: 35 Patient Condition:: Stable Medical Necessity - Tobacco Use Smoking Status: Never smoker Tobacco Use: Non-smoker Meaningful Use Info Meaningful Use Diagnoses (Choose all that apply): AMI - AMI Aspirin given w/in 24hrs of arrival?: Yes ASA at discharge?: No Reason ASA not ordered:: Coumadin rx at discharge Statins at discharge?: Yes Luis/ARB at discharge?: No Reason Luis/ARB not ordered:: Hypotension Beta Lucero at discharge?: No Reason Beta Lucero not ordered:: Hypotension Done w/ Acute HI measure.: Yes Documented LVEF (%): 35 Code Visit Inpatient E&M: 87886 Disch Hosp
--- NOTE | 2019-02-02 11:37 | CASEMGMT ---
Addendum entered by Bri Matute 02/02/19 11:47: Correction: Pt instructed to follow-up with her PCP re: Eliquis, not print traffic manager. Original Note: SHERRON MADRIGAL NOTE: Pt discharging home on Eliquis. Call placed to [facility]. Eliquis savings card has been applied. Pt will have $0 co-pay for Eliquis. Inquired about [id number] cost on refills of Eliquis. Pharmacy informed this SHERRON MADRIGAL that pt would need to call her insurance to get this information. SHERRON MADRIGAL to room to talk with pt. She was made aware the 1st 30 days of Eliquis will be $0 and instructed her to call her insurance company to inquire about cost of re-fills. Pt made aware if cost of refills is not affordable, to discuss other options with her print traffic manager. She was made aware of the importance of not stopping this medication. She voices understanding. Pt denies having any questions/concerns about discharging home. Isael GARCIA RN, CM.
[2019-02-02] MEDS: 0.9% Saline Lock 10 ML Syringe IV (13:25)
--- NOTE | 2019-02-04 14:06 | CASEMGMT ---
SHERRON DC PHONE CALL DC DATE: 02/02/19 DC Disposition: Home Diagnosis on Discharge: Septic Shock LACE/STRATA: 19/06 Attempted call to phone. No answer. Ivelisse WORRELLN RN ACM
== END 2019-02-02 13:59 | disposition home or self-care (01) | DRG 698 ==
LOC: ED 21:27 → ICU 23:49 → PCU 02-01 08:08
PROVIDERS: Internal Medicine Cardiovascular Disease; Internal Medicine Critical Care Medicine; Internal Medicine Nephrology; Student in an Organized Health Care Education/Training Program; Admitting Provider Family Medicine; Emergency Provider Emergency Medicine; Family Provider Family Medicine; PCP Family Medicine; Visit Provider Family Medicine
DX: T83.518A Infection and inflammatory reaction due to other urinary catheter, initial encounter (principal); A41.9 Sepsis, unspecified organism; I26.99 Other pulmonary embolism without acute cor pulmonale; R65.21 Severe sepsis with septic shock; G93.41 Metabolic encephalopathy; J18.9 Pneumonia, unspecified organism; I21.4 Non-ST elevation (NSTEMI) myocardial infarction; N39.0 Urinary tract infection, site not specified; C64.1 Malignant neoplasm of right kidney, except renal pelvis; G82.20 Paraplegia, unspecified; C79.51 Secondary malignant neoplasm of bone; I51.81 Takotsubo syndrome; E87.0 Hyperosmolality and hypernatremia; N17.9 Acute kidney failure, unspecified; Y84.6 Urinary catheterization as the cause of abnormal reaction of the patient, or of later complication, without mention of misadventure at the time of the procedure; N31.9 Neuromuscular dysfunction of bladder, unspecified; E87.6 Hypokalemia; G89.4 Chronic pain syndrome; E83.39 Other disorders of phosphorus metabolism; Z90.5 Acquired absence of kidney; Z92.3 Personal history of irradiation; Z98.1 Arthrodesis status; Z87.440 Personal history of urinary (tract) infections; Z79.52 Long term (current) use of systemic steroids
CPT/HCPCS: 36415; 36591; 51702; 71045; 71275; 76770; 80048; 80053; 80061; 80069; 80202; 81001; 82570; 83605; 83735; 84100; 84300; 84484; 85025; 85347; 85610; 85730; 87040; 87086; 87449; 87633; 87641; 87804; 92507; 92526; 92610; 93005; 93306; 93458; 97110; 97162; 97166; 97530; 97802; 99251; 99285; J7030; J7040; J7050; Q9957; Q9967; A4216; C1769; C1894; C8929; G0463; J2405; J3490

== ENCOUNTER 2019-02-07 16:14 | Inpatient (IN) | payer MEDICARE, SELFPAY ==
[2019-01-29 00:40] VITALS: BMI 25.2
[2019-02-07] VITALS (10 sets, daily range): BP systolic 112–164; BP diastolic 81–115; PULSE 82–90; RESP 14–21; TEMP 36.3–36.7; O2SAT 96–100; BMI 27.1; BMI 27.3
--- NOTE | 2019-02-07 17:22 | EKG12_ITS ---
Test Reason : LETHERY Blood Pressure : / mmHG Vent. Rate : 087 BPM Atrial Rate : 087 BPM P-R Int : 154 ms QRS Dur : 088 ms QT Int : 394 ms P-R-T Axes : 044 -14 126 degrees QTc Int : 474 ms Sinus rhythm with frequent Premature ventricular complexes Nonspecific ST & T Wave Abnormality Abnormal ECG Confirmed by NICA ROWLAND, AGUILAR ([id number]), assistant film editor TENISHA HEIN ([id number]) on 02/09/2019 1:00:07 PM Referred By: Aguilar Graham Confirmed By:AGUILAR YOUSIF MD
--- NOTE | 2019-02-07 17:23 | CT_ITS ---
STUDY: CT BRAIN WITHOUT CONTRAST REASON FOR EXAM: Female, 53 years old. Altered mental status. History of renal cancer. RADIATION DOSAGE (If Supplied By Facility): CTDIvol = ( 44.99 ) mGy, DLP = ( 796.11 ) mGycm TECHNIQUE: Transaxial CT imaging of the brain was performed without administration of intravenous contrast material. Individualized dose optimization techniques were used for this CT. COMPARISON: No relevant priors. FINDINGS: Normal soft tissue structures. Normal calvarium. Normal size ventricles and extra-axial spaces for the patient's age. Normal white matter tracts of the cerebral hemispheres. Normal basal ganglia and thalami. Normal brainstem. Normal cerebellum. There is no intracranial hemorrhage. There are no findings of an acute ischemic infarction. There is mucoperiosteal inflammatory disease of the paranasal sinuses consistent with moderate chronic sinusitis. Air-fluid level in the right maxillary sinus consistent with acute sinusitis. CT/Brain/Head without Contrast IMPRESSION: Normal unenhanced CT scan of the brain. Prominent sinusitis. Electronically Signed: Bang Wyatt MD at 18:41 EST , Service support ,
--- NOTE | 2019-02-07 17:24 | ED.DCSUM_ITS ---
History of Present Illness Chief Complaint: Fatigue Informant: Patient, Significant Other Onset: Days - 2-3 Context: Gradual Onset Timing: Continuous Quality: weak, fatigue, lethargic Location: all over Current Severity: Severe Maximum Severity: Severe Worsened by: nothing Relieved by: nothing Associated Symptoms: vomiting yesterday. intermittent chills/tremors. afebrile earlier. Narrative: Feeling very tired and fatigued. She is currently under chemotherapy treatment for renal cell carcinoma. She states this is how she felt when she was admitted 1-1.5 weeks ago for septic shock from a urinary tract infection, pneumonia, pulmonary embolus, etc. She is now on a blood thinner, she finished her antibiotic 4 days ago or so, and has been feeling weak and tired ever since. No known fevers. She vomited several times this morning. She does not feel nauseated anymore. Denies any abdominal pain. Today she was falling asleep. No syncopal episodes. She denies a headache. No recent cough, shortness of breath, or chest pain. She has chronic paraplegia and requires self cathing, she has not been cathed yet today. She has had worsening edema in her legs recently. Oncology allowed them to take 1 dose of Lasix 1 or 2 weeks ago for it. - Past Medical History (1) Chronic pain syndrome Status: Chronic (2) Renal carcinoma Status: Chronic Past Medical History - Allergies and Home Meds Allergies/Adverse Reactions: Allergies No Known Allergies Allergy (Verified 02/07/19 16:16) Primary Care Physician: Aaron Chand MD [Primary Care Provider] - Surgical History: - - right nephrectomy, Neck surgery with hardware, lumbar surgery with hardware with corrective follow-up surgery, left lower extremity femur surgery with hardware placement secondary to cancerous lesions, cholecystectomy, tonsillectomy, port placement. Lives: Spouse/ Significant Other Smoking Status: Never smoker Drugs: None - Family History Maternal Family History: Reports: - - Patient with maternal family history of lung cancer, tobacco use history. Paternal Family History: Reports: - - Patient with a paternal family history of lung cancer, tobacco use history concurrently. Review of Systems ROS: Unable to Obtain - limited eval due to lethargy General: Reports: Chills, Malaise. Denies: Fever Eyes: Denies: Visual changes - bilaterally, Diplopia ENT: Denies: Bilateral ear pain, Rhinorrhea, Sore throat Cardiovascular: Denies: Chest pain, Palpitations Respiratory: Denies: Dyspnea, Cough, Orthopnea Gastrointestinal: Reports: Vomiting. Denies: Abdominal pain, Diarrhea, Melena Genitourinary: Denies: Hematuria Musculoskeletal: Reports: Back pain - chronic, Swelling. Denies: Neck pain, Extremity Pain Skin: Denies: Rash, Wounds Neurological: Reports: Weakness - BLE, Numbness - BLE and lower half of abd. Denies: Headache Physical Exam Vital Signs/Narrative: Vital Signs Temp Pulse Resp BP Pulse Ox 02/07/19 16:47 98.0 F 82 14 164/94 H 98 02/07/19 16:16 98 F 82 14 164/94 H 98 Inital Vital Signs reviewed: Yes General: Well nourished, Well developed, No Acute Distress - but very lethargic. responds easily to voice. Head: Normocephalic, Atraumatic Eyes: Perrl, EOMI ENT: Moist mucous membranes, No rhinorrhea, - - POP clear Neck: Supple, Nontender, No lymphadenopathy, No JVD Cardiovascular: Regular rate, Regular rhythm, No murmurs, Normal S1, Normal S2. Negative for: Tachycardia Respiratory: No distress, CTA bilaterally, Chest nontender Abdomen: Soft, Nontender, Nondistended, Normal bowel sounds, - - no smita sign Back: Nontender, - - mild mottled-appearance right low-mid back w/o cyanosis -- normal/baseline per /spa manager. no kern cotto sign.. Negative for: CVA tenderness Extremities: Nontender, No edema Skin: Normal color, No rash Neurological: Alert, Oriented x3, Cranial nerves II-XII grossly intact, Lethargic, Parasthesia - lower abd, down, Weakness - paralysis BLE Diagnostic/Tx/Re-eval Impressions Brain CT 02/07/19 17:23 IMPRESSION: Normal unenhanced CT scan of the brain. Prominent sinusitis. Electronically Signed: Bang Wyatt MD at 18:41 EST , Service support , Chest X-Ray 02/07/19 17:30 IMPRESSION: Since prior exam, increased atelectasis and small effusion on the right. Otherwise stable. Electronically Signed: Bang Wyatt MD at 17:47 EST , Service support , 02/07/19 17:23 CT Brain [Brain/Head without Contrast] [CT] Stat 02/07/19 17:30 Chest 1 View (Portable) [RAD] Stat Laboratory Results 02/07/19 02/07/19 02/07/19 17:00 17:00 17:00 WBC 8.3 RBC 4.33 Hgb 10.7 L Hct 34.7 L MCV 80.1 L MCH 24.7 L MCHC 30.8 L RDW Std Deviation 53.9 H RDW Coeff of Deborah 19.6 H Plt Count 220 MPV 10.3 Immature Gran % (Auto) 1.600 H Neut % (Auto) 66.5 Lymph % (Auto) 14.8 L [place] % (Auto) 11.2 H Eos % (Auto) 5.7 H Baso % (Auto) 0.2 Absolute Neuts (auto) 5.5 Absolute Lymphs (auto) 1.23 Nucleated RBC % 0 PT 19.8 H INR 1.7 APTT 36.3 H Sodium 142 Potassium 3.3 L Chloride 108 H Carbon Dioxide 27.0 Anion Gap 7 BUN 21 H Creatinine 2.44 H Estim Creat Clear Calc 24.39 Est GFR (MDRD) Af Amer 26 L Est GFR (MDRD) Non-Af 22 L BUN/Creatinine Ratio 8.6 L Glucose 98 Lactic Acid Calcium 8.7 Total Bilirubin 0.40 AST 18 ALT 25 Alkaline Phosphatase 89 Troponin I 0.118 H Total Protein 5.5 L Albumin 2.5 L Globulin 3.0 Albumin/Globulin Ratio 0.8 L Urine Color Urine Clarity Urine pH Ur Specific [place] Urine Protein Urine Glucose (UA) Urine Ketones Urine Occult Blood Urine Nitrite Urine Bilirubin Urine Urobilinogen Ur Leukocyte Esterase Urine RBC Urine WBC Ur Squamous Epith Cells Urine Bacteria Urine Mucus POC Glucose 02/07/19 02/07/19 02/07/19 17:00 17:31 17:50 WBC RBC Hgb Hct MCV MCH MCHC RDW Std Deviation RDW Coeff of Deborah Plt Count MPV Immature Gran % (Auto) Neut % (Auto) Lymph % (Auto) [place] % (Auto) Eos % (Auto) Baso % (Auto) Absolute Neuts (auto) Absolute Lymphs (auto) Nucleated RBC % PT INR APTT Sodium Potassium Chloride Carbon Dioxide Anion Gap BUN Creatinine Estim Creat Clear Calc Est GFR (MDRD) Af Amer Est GFR (MDRD) Non-Af BUN/Creatinine Ratio Glucose Lactic Acid 1.8 Calcium Total Bilirubin AST ALT Alkaline Phosphatase Troponin I Total Protein Albumin Globulin Albumin/Globulin Ratio Urine Color Straw Urine Clarity Sl. Cloudy Urine pH 5.0 Ur Specific [place] 1.010 Urine Protein Negative Urine Glucose (UA) Normal Urine Ketones Negative Urine Occult Blood 10 H Urine Nitrite Negative Urine Bilirubin Negative Urine Urobilinogen Normal Ur Leukocyte Esterase 100 H Urine RBC 0 SEEN Urine WBC 0-5 SEEN Ur Squamous Epith Cells 0-5 SEEN Urine Bacteria 0 SEEN Urine Mucus 0 SEEN POC Glucose 83 - Rhythm Strip Rhythm Strip: Sinus Rhythm Rate: 90 Ectopy: PVC(s) - EKG Initial EKG Interpretation: Sinus Rhythm, No Acute Injury Pattern, - - old anterior infarct; frequent pvcs; no ST elev/depr - Medical Decision Making Patient is lethargic and her x-ray shows bilateral atelectasis versus infiltrates with a small effusion. Certainly her lethargy could cause atelectasis on the x-ray if she is not taking deep inspiration, which she is not. However it looks worse than before and she meets sirs criteria since she has greater than 10% bandemia/immature white blood cells and a respiratory rate of 21. She is lethargic and recently was in septic shock and I think it safe to treat her empirically to cover for suspected pneumonia. Additionally she has acute renal failure with a 10: 1 ratio and I think should be admitted to further evaluate this as this is a ma difference for her compared to recent labs last week. I do not think she needs to be admitted to the ICU at this time, she is clinically and hemodynamically stable. We were able to converse about her lab abnormalities, and she understands this. Her urine does not show acute infection. At this time antibiotics are ordered however, there was significant difficulty in obtaining blood cultures, delaying giving the antibiotics at this time. ED Disposition - Plan for ED Patient: Disposition: [facility] Diagnosis: Acute renal failure, Sepsis, Immunocompromised state Referrals: Aaron Chand MD [Primary Care Provider] -
--- NOTE | 2019-02-07 17:30 | RAD_ITS ---
STUDY: X-RAY CHEST REASON FOR EXAM: Female, 53 years old. Nausea and vomiting. Recent septic shock. Renal carcinoma. TECHNIQUE: Single AP portable view of the chest. COMPARISON: 01/28/2019. FINDINGS: Indwelling catheter terminates near the cavoatrial junction, stable. Elevated left hemidiaphragm, stable. Atelectasis or infiltrate in both lung bases with small effusions, increased on the right since previous study. Grossly stable on the left. Normal heart size. Normal mediastinum and john. Normal visualized pulmonary arteries. Normal visualized aortic arch and descending thoracic aorta. Previous thoracic and cervical spine surgery and fixation. There is no demonstrated abnormality of the visualized soft tissue structures of the upper abdomen. RAD/Chest 1 View (Portable) IMPRESSION: Since prior exam, increased atelectasis and small effusion on the right. Otherwise stable. Electronically Signed: Bang Wyatt MD at 17:47 EST , Service support ,
[2019-02-07 17:35] LABS: Bedside Glucose 83 mg/dL (70-110)
[2019-02-07 17:49] LABS: Absolute Lymphocyte Count 1.23 X10^3/uL (0.83-4.51); Absolute Neutrophil Count 5.5 X10^3/uL (2.0-7.7); Basophil# 0.02 X10^3/uL; Basophil% 0.2 % (0-1); Eosinophil# 0.47 X10^3/uL; Eosinophils% 5.7 % (0-5); Hematocrit 34.7 % (37-47); Hemoglobin 10.7 g/dL (12.0-15.0); Lymphocyte # 1.23 X10^3/ul (4.0); Lymphocyte % 14.8 % (19-41); Mean Corp Hgb Conc 30.8 g/dL (32-36); Mean Corpuscular Hgb 24.7 pg (27.0-32.0); Mean Corpuscular Volume 80.1 fL (81-99); Mean Platelet Vol. 10.3 fl (6.2-12.0); Monocyte# 0.93 X10^3/uL; Monocyte% 11.2 % (0-10); NRBC Flagged by Analyzer 0 % (0-5); Neutrophil # 5.52 X10^3/uL (2.7-7.7); Neutrophil % 66.5 % (47-70); Platelet Count 220 K/mm3 (150-450); RBC Distribution Width CV 19.6 % (11.6-14.6); RBC Distribution Width SD 53.9 fl (35.1-43.9); Red Blood Count 4.33 M/mm3 (4.2-5.4); White Blood Count 8.3 K/mm3 (4.4-11.0)
[2019-02-07 18:03] LABS: Lactic Acid 1.8 mmol/L (0.4-2.0)
[2019-02-07 18:05] LABS: ALB/GLOB Ratio 0.8 RATIO (0.9-2.4); AST(SGOT) 18 U/L (15-37); Alanine Aminotransfer ALT/SGPT 25 U/L (13-56); Albumin, Serum 2.5 g/dL (3.2-5.0); Alkaline Phosphatase 89 U/L (45-117); Anion Gap 7 (5-15); BUN 21 mg/dL (7-18); BUN/Creat Ratio 8.6 RATIO (10-20); Calcium,Total 8.7 mg/dL (8.5-10.1); Chloride 108 mmol/L (98-107); Creatinine, Serum 2.44 mg/dL (0.55-1.02); EST Glomerular Filtration Rate 22 mL/min (>60); Est Glom Filt Rate - Afr Amer 26 mL/min (>60); Estimated Creatinine Clearance 24.39 ml/min; Glucose 98 mg/dL (74-106); Potassium 3.3 mmol/L (3.5-5.1); Protein, Total 5.5 g/dL (6.4-8.2); Sodium Level 142 mmol/L (136-145)
[2019-02-07 18:08] LABS: International Normalized Ratio 1.7; Partial Thromboplast Time 36.3 Seconds (24.1-36.2); Prothrombin Time (Protime)PT. 19.8 SECONDS (11.7-14.9)
[2019-02-07 18:22] LABS: Bacteria 0 SEEN /hpf (None Seen); Mucous, Urine 0 SEEN /hpf (<or=2+); Red Blood Cells-Urine 0 SEEN /hpf (0-5)
[2019-02-07 18:31] LABS: Color, Urine Straw (Yellow); Glucose, Dipstick Normal (Normal); Ketone-Dipstick Negative (Negative); Leukocyte Esterase-Dipstick 100 /ul (Negative); Nitrite-Dipstick Negative (Negative); Occult Blood-Urine 10 /ul (Negative); Protein-Dipstick Negative (Negative); Urine Bilirubin Dipstick Negative (Negative); Urine Clarity Sl. Cloudy (Clear); Urine Urobilinogen Normal (Normal)
[2019-02-07 18:49] LABS: Squamous Epithelial Cells - UA 0-5 SEEN /hpf (5-10); White Blood Cells 0-5 SEEN /hpf (0-5)
--- NOTE | 2019-02-07 20:43 | PCM.HP.STD ---
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.01/31/2019 per [facility] @ [facility] (4) Pneumonia Status: Acute Qualifiers: Pneumonia type: due to unspecified organism Laterality: bilateral Lung location: unspecified part of lung Qualified Code(s): J18.9 - Pneumonia, unspecified organism (5) KELLEE (acute kidney injury) Status: Acute (6) Hypokalemia Status: Acute (7) Encephalopathy acute Status: Acute (8) Renal carcinoma Status: Chronic Qualifiers: Laterality: right Qualified Code(s): C64.1 - Malignant neoplasm of right kidney, except renal pelvis (9) Chronic pain syndrome Status: Chronic History of Present Illness Date of Admission: 02/07/19 Chief Complaint: altered mental status The patient is a 53 year old male patient recently discharged last week for hospitalization due to sepsis presents to the emergency room with extreme fatigue and decreased sensorium. Patient has a significant past medical history of renal cell carcinoma diagnosed in 2013 status post several surgeries to her spine and right femur requiring rods with subsequent spinal cord injury and is now paraplegic. The patient states this morning upon awakening her care provider had difficulty arousing her but was able to give her routine medications and left for the morning the patient states that she then fell asleep and was unarousable by telephone or text messaging and her daughter was concerned and looked after her. Her reports that at this time the patient was incoherent, confused and obviously fatigued similar to her presentation last week and a half ago when she was admitted for sepsis. Chest x-ray shows increased interstitial infiltrate possibly pneumonia ,however ,patient denies chest pain or shortness of breath at present time. BUN and creatinine are elevated from baseline and patient is status post nephrectomy with one kidney done in 2013. The patient had a normal heart catheterization last week mildly elevated troponin but again denies symptoms of chest discomfort at this time. Blood cultures were drawn and patient was started on Levaquin and will be admitted for observation and Dr. Valiente will be consulted for further evaluation and continuity. 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.01/31/2019 per [facility] Renal carcinoma (Chronic) Chronic pain syndrome (Chronic) Allergies No Known Allergies Allergy (Verified 02/07/19 16:16) Home Medications: Ambulatory Orders Medication Instructions Recorded Baclofen [Lioresal] 5 mg PO TID 12/12/18 Furosemide [Lasix] 20 mg PO DAILY PRN PRN 12/12/18 Gabapentin [Neurontin] 300 mg PO TID 12/12/18 Ondansetron [Zofran] 8 mg PO Q8H PRN PRN 12/12/18 Oxycodone Myristate [Xtampza ER] 18 mg PO Q12H 12/12/18 Prednisone 5 mg PO DAILY 12/12/18 Temazepam [Restoril] 30 mg PO QHS 12/12/18 Tizanidine HCl [Zanaflex] 4 mg PO Q8H PRN 12/12/18 Aloxi 5 ml IV TH 02/07/19 Apixaban [Eliquis] 5 mg PO BID 02/07/19 Surgical History: Surgical History (Last Updated 01/31/19 @ 16:13 by Rosalva Morris) History of left heart catheterization (Chronic) Onset Date: 01/31/19 Z98.890 Non obstructive coronary arteries Segmented LV systolic dysfunction- Moderate LVEF: by LV gram 35 % 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 Paternal History Items: - - Patient with a paternal family history of lung cancer, tobacco use history concurrently. Review of Systems Constitutional: Reports: Malaise, Weakness, Fatigue. Denies: Chills, Fever, Weight Change HEENT: Denies: Head Aches, Sinus Congestion, Sinus Drainage Cardiovascular: Denies: Chest Pain, Palpitations Respiratory: Denies: Cough, Shortness of breath at rest, Sputum production Gastrointestinal: Denies: Abdominal Pain, Nausea, Vomiting Genitourinary: Denies: Dysuria Musculoskeletal: Denies: Joint Pain, Joint Tenderness Skin: Denies: Rash, Wounds Neurological: Denies: Numbness, Tingling, Focal weakness Psychiatric: Denies: Anxiety, Depression, Homicidal Ideations, Suicidal Ideations Hematologic/ Lymphatic: Reports: Hx of blood clot. Denies: Easy Bruising, Easy Bleeding VTE Information - Inpt Only VTE Present on Admission: Yes VTE Mechan Device Prophylaxis: None VTE Pharm Prophylaxis ordered?: No Patient Problems: Active and Suspected Problems Acute renal failure (Acute) Sepsis (Acute) - Physical Exam Vitals/I&O's: Vital Signs Temp Pulse Resp BP Pulse Ox 98.1 F 89 18 124/111 H 100 02/07/19 19:00 02/07/19 20:02 02/07/19 20:02 02/07/19 20:02 02/07/19 20:02 Oxygen Delivery Method Room Air Weight: 168 lb Body Mass Index (BMI) 27.1 Finger Stick Blood Glucose 83 Intake and Output for Last 24 Hours 02/05/19 02/06/19 02/07/19 23:59 23:59 23:59 Output Total 600 / 600 Balance -600 / -600 General: Alert, Oriented x3, Cooperative HEENT: Atraumatic, Normocephalic Neck: Supple, Negative Carotid Bruits Lungs: Clear to auscultation, Normal air movement Cardiovascular: Regular rate, Normal S1, Normal S2, No murmurs Abdomen: Bowel Sounds Present, Soft, Non Tender Extremities: No edema Skin: No rashes Musculoskeletal: No Tenderness to Palpation of Joints or Extremities Neurological: Cranial nerves II-XII grossly intact, - - loss of lower extremity sensation and motor function Psych/Mental Status: Normal Affect, Appropriate, Restless Laboratory Results 02/07/19 17:00: WBC 8.3, RBC 4.33, Hgb 10.7 L, Hct 34.7 L, MCV 80.1 L, MCH 24.7 L, MCHC 30.8 L, RDW Std Deviation 53.9 H, RDW Coeff of Deborah 19.6 H, Plt Count 220, MPV 10.3, Immature Gran % (Auto) 1.600 H, Neut % (Auto) 66.5, Lymph % (Auto) 14.8 L, [place] % (Auto) 11.2 H, Eos % (Auto) 5.7 H, Baso % (Auto) 0.2, Absolute Neuts (auto) 5.5, Absolute Lymphs (auto) 1.23, Nucleated RBC % 0 02/07/19 17:00: PT 19.8 H, INR 1.7, APTT 36.3 H 02/07/19 17:00: Sodium 142, Potassium 3.3 L, Chloride 108 H, Carbon Dioxide 27.0, Anion Gap 7, BUN 21 H, Creatinine 2.44 H, Estim Creat Clear Calc 24.39, Est GFR (MDRD) Af Amer 26 L, Est GFR (MDRD) Non-Af 22 L, BUN/Creatinine Ratio 8.6 L, Glucose 98, Calcium 8.7, Total Bilirubin 0.40, AST 18, ALT 25, Alkaline Phosphatase 89, Troponin I 0.118 H, Total Protein 5.5 L, Albumin 2.5 L, Globulin 3.0, Albumin/Globulin Ratio 0.8 L 02/07/19 17:00: Lactic Acid 1.8 02/07/19 17:31: POC Glucose 83 02/07/19 17:50: Urine Color Straw, Urine Clarity Sl. Cloudy, Urine pH 5.0, Ur Specific [place] 1.010, Urine Protein Negative, Urine Glucose (UA) Normal, Urine Ketones Negative, Urine Occult Blood 10 H, Urine Nitrite Negative, Urine Bilirubin Negative, Urine Urobilinogen Normal, Ur Leukocyte Esterase 100 H, Urine RBC 0 SEEN, Urine WBC 0-5 SEEN, Ur Squamous Epith Cells 0-5 SEEN, Urine Bacteria 0 SEEN, Urine Mucus 0 SEEN Assessment/Plan All Active Problems Acute renal failure (Acute) Sepsis (Acute) Septic shock (Acute) UTI (urinary tract infection) (Acute) Pneumonia (Acute) KELLEE (acute kidney injury) (Acute) Hypokalemia (Acute) Encephalopathy acute (Acute) Chronic Problems Immunocompromised state (Chronic) History of left heart catheterization (Chronic 01/31/19) Non obstructive coronary arteries Segmented LV systolic dysfunction- Moderate LVEF: by LV gram 35 % 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 Altered mental status/confusion?possibly secondary to pneumonia, patient started on Levaquin in the emergency room blood cultures were drawn, will admit for observation oxygen as needed maintain pulse oxygenation above 90% at this time and is not needed 2. Elevated troponin?she is status post heart catheterization 1 week ago and was negative for coronary artery disease 3. Acute renal failure?gentle IV hydration repeat BMP in the morning 4. Paraplegia?nursing care as appropriate will need catheterization every shift 5. Pulmonary emboli recently diagnosed?continue Eliquis 6. History of renal cell carcinoma?consult Aguilar Valiente oncologist 7. We will continue with chronic medications to manage pain Code Visit OBSV E&M: [id number] Initial observation care L2
[2019-02-07] MEDS: 0.9% Normal Saline 1,000 ML 75 ML IV (22:30)
[2019-02-07] MEDS: levoFLOXacin IV 750 MG/150 ML BAG 100 MG IV (22:30)
[2019-02-07] MEDS: Gabapentin 300 MG Capsule PO (22:37)
[2019-02-07] MEDS: Baclofen 10 MG Tablet 5 MG PO (22:37)
[2019-02-07] MEDS: APIXABAN 5 MG TABLET 10 MG PO (22:39)
[2019-02-07] MEDS: Temazepam 15 MG Capsule 30 MG PO (22:39)
[2019-02-08] VITALS (15 sets, daily range): BP systolic 93–145; BP diastolic 50–95; PULSE 63–106; RESP 10–18; TEMP 36.4–37.2; O2SAT 92–100
[2019-02-08 04:23] LABS: Absolute Lymphocyte Count 0.87 X10^3/uL (0.83-4.51); Absolute Neutrophil Count 3.6 X10^3/uL (2.0-7.7); Basophil# 0.02 X10^3/uL; Basophil% 0.4 % (0-1); Eosinophil# 0.49 X10^3/uL; Eosinophils% 8.7 % (0-5); Hematocrit 31.9 % (37-47); Hemoglobin 9.8 g/dL (12.0-15.0); Lymphocyte # 0.87 X10^3/ul (4.0); Lymphocyte % 15.4 % (19-41); Mean Corp Hgb Conc 30.7 g/dL (32-36); Mean Corpuscular Hgb 25.1 pg (27.0-32.0); Mean Corpuscular Volume 81.6 fL (81-99); Mean Platelet Vol. 10.1 fl (6.2-12.0); Monocyte# 0.58 X10^3/uL; Monocyte% 10.3 % (0-10); NRBC Flagged by Analyzer 0 % (0-5); Neutrophil # 3.56 X10^3/uL (2.7-7.7); Neutrophil % 62.9 % (47-70); Platelet Count 208 K/mm3 (150-450); RBC Distribution Width CV 19.6 % (11.6-14.6); Red Blood Count 3.91 M/mm3 (4.2-5.4); White Blood Count 5.7 K/mm3 (4.4-11.0)
[2019-02-08 04:38] LABS: Anion Gap 6 (5-15); BUN 21 mg/dL (7-18); BUN/Creat Ratio 8.5 RATIO (10-20); Calcium,Total 8.1 mg/dL (8.5-10.1); Chloride 109 mmol/L (98-107); Creatinine, Serum 2.48 mg/dL (0.55-1.02); EST Glomerular Filtration Rate 21 mL/min (>60); Est Glom Filt Rate - Afr Amer 26 mL/min (>60); Estimated Creatinine Clearance 23.99 ml/min; Glucose 80 mg/dL (74-106); Potassium 3.2 mmol/L (3.5-5.1); Sodium Level 143 mmol/L (136-145)
[2019-02-08] MEDS: 0.9% Saline Lock 10 ML Syringe IV (05:03)
[2019-02-08] MEDS: Gabapentin 300 MG Capsule PO (05:03)
[2019-02-08] MEDS: Baclofen 10 MG Tablet 5 MG PO (05:03)
[2019-02-08] MEDS: Ondansetron 8 MG Tablet PO (08:49)
[2019-02-08 09:33] LABS: Phosphorus 5.2 mg/dL (2.5-4.9)
[2019-02-08] MEDS: predniSONE 5 MG Tablet PO (10:34)
[2019-02-08] MEDS: APIXABAN 5 MG TABLET 10 MG PO ×2 (10:35→22:10)
--- NOTE | 2019-02-08 10:53 | CASEMGMT ---
According to the [facility] website, the following are in-network tertiary facilities: [facility], [facility], [place], [facility], [place], [facility], and . Marianela SIU CM
--- NOTE | 2019-02-08 11:08 | CASEMGMT ---
SHERRON CM Readmission Note Previous Admission: 01.28-19 Diagnosis: Septic Shock, pneumonia, ARF DC Disposition: Home Pt returned home with . Has equipment at home and declined HHC> Current Admission Presentation: mental status change, ARF Pt will be transferred to Tertiary care for neurological evaluation. Ivelisse GARCIA RN ACM.
[2019-02-08] MEDS: tiZANidine HCl 2 MG Tablet 4 MG PO (12:19)
[2019-02-08] MEDS: 0.9% Normal Saline 1,000 ML 999 ML IV ×2 (12:19→13:16)
--- NOTE | 2019-02-08 12:21 | MRI_ITS ---
STUDY: MRI BRAIN WITHOUT CONTRAST REASON FOR EXAM: Female, 53 years old. AMS, new renal cell CA and recent sepsis TECHNIQUE: Standardized multiplanar fat and water weighted pulse sequences were obtained. COMPARISON: Head CT dated February 07, 2019 FINDINGS: Normal size of the ventricles and extra-axial spaces for the patient's age. Normal white matter tracts of the supratentorial brain. There is no evidence for recent intracranial ischemia or other cause of cytotoxic edema on diffusion weighted imaging (DWI). Normal T2* images of the brain without demonstrated susceptibility artifact. There is no demonstrated hemosiderin stain. No hydrocephalus is seen. No midline shift. Normal bilateral basal ganglia. Normal thalami. There is no extra-axial fluid accumulation. Normal flow voids within the major intracranial circulation suggesting patency by spin echo criteria. Normal sella turcica, pituitary gland, infundibular stalk, optic chiasm and hypothalamus. Normal tectal plate and pineal gland. Normal midbrain, deshawn and medulla. Normal cerebellum. Normal basal cisterns. Normal bilateral temporal bones. Normal bilateral internal auditory canals. No demonstrated orbital abnormality, within the constraints of a routine brain study. There is mucoperiosteal inflammatory disease of the paranasal sinuses consistent with mild chronic sinusitis. Normal calvarium and skull base. Normal visualized soft tissue structures. Normal visualized upper cervical spine. MRI/Brain without Contrast IMPRESSION: 1. Negative unenhanced MRI of the brain. Electronically Signed: Raymond Cabello MD at 15:32 EST , Service support ,
[2019-02-08] MEDS: 0.9% Normal Saline 1,000 ML 150 ML IV (13:50)
[2019-02-08 14:06] LABS: Bedside Glucose 88 mg/dL (70-110)
--- NOTE | 2019-02-08 14:10 | EKG12_ITS ---
Test Reason : Blood Pressure : / mmHG Vent. Rate : 099 BPM Atrial Rate : 099 BPM P-R Int : 136 ms QRS Dur : 084 ms QT Int : 404 ms P-R-T Axes : 025 -23 147 degrees QTc Int : 518 ms Normal sinus rhythm Septal infarct , age undetermined ST & T wave abnormality, consider lateral ischemia Abnormal ECG When compared with ECG of 07-FEB-2019 17:31, MANUAL COMPARISON REQUIRED, DATA IS UNCONFIRMED Confirmed by CARLENE MOTLEY ([id number]), market editor GEORGINA ASTUDILLO ([id number]) on 02/13/2019 11:04:40 AM Referred By: Aguilar Graham Confirmed By:CARLENE MOTLEY
--- NOTE | 2019-02-08 14:24 | NURSING ---
1406 pt bolus completed. pt in bed with snoring resp. spo2 on ra 92% at this time. attempted to awaken pt to take nose ring out for mri but pt completely obtunded and not responsive to verbal or painful stimulation from deep sternal rub even. airway maintained. set up person called. bs 88. vs wnl . abgs obtained and ekg. pt eventually aroused after 4th sternal rub by dr. soriano. pt apprehensive upon awakening. reasurance given. pt to mri via bed with radiation rn.
[2019-02-08 14:26] LABS: Allen Test POS; Base Excess -2 mmol/L (-2 to +2); Bicarbonate 21.8 mmol/L (22-26); Blood Gas Specimen Type ART; O2 Delivery Device Room Air; PO2 63 mmHG (75-100); SITE R Radial; SO2 93 % (95-99); Time Given 1415; Total Carbon Dioxide 23 mmol/L; pCO2 30.5 mmHg (35-45); pH 7.46 (7.35-7.45)
--- NOTE | 2019-02-08 15:26 | DS.PCM_ITS ---
Discharge Date and Diagnosis - Problem List Patient Problems: Active and Suspected Problems Acute renal failure (Acute) Sepsis (Acute) Date of Admission: 02/07/19 Date of Discharge: 02/08/19 - Primary Discharge Diagnosis Active and Suspected Problems Altered mental status Tremor muscle spasm upper extremity KELLEE Recent Sepsis 2/2 Pseudomonas UTI completed o/p treatment Recent NSTEMI Recent dx of PE on eliquis Hx solitary kidney Hx Renal cell carcinoma with mets to the spine - Secondary Discharge Diagnosis Chronic Problems Immunocompromised state (Chronic) History of left heart catheterization (Chronic 01/31/19) Non obstructive coronary arteries Segmented LV systolic dysfunction- Moderate LVEF: by LV gram 35 % 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 Valiente, solitary kidney s/p nephrectomy, mets to the spine, paraplegia, neurogenic bladder, who was recently admitted to the hospital 01/28-02/02 and treated for UTI, sepsis, NSTEMI, PE, doing well at the time of discharge, who presented to the ER with altered mental status. The day of presentation she was lethargic, not making sense when speaking to her . There was concern for infection as she presented with confusion and lethargy at her last admission for sepsis so she was given a dose of levaquin. This time however she also had a new upper and lower extremity tremor and upper extremity muscle spasms. She had a negative CT in the ER, CXR showing atelectasis, and no fever or leukocytosis, also negative urinalysis, no headache, no nuchal rigidity or neck pain. She did have somewhat elevated Cr c/w KELLEE. She was admitted to the PCU and given IV flu ids. The following morning her renal function was unchanged. She continued to have uncontrolled muscle spasms, upper and lower extremity tremor, and she was having difficulty finishing sentences and with word finding. She was A/O x 3 however she would initially answer questions wrong but successfully corrected herself. She also had intermittent lethargy with difficulty to arouse. We were concerned she may need a contrasted MRI to look for metastatic disease however with her solitary kidney and KELLEE we did not feel comfortably giving contrast at this time. MRI brain without contrast was done and is negative. With her uncontrolled muscle spasms we were concerned she may need an EEG to rule out seizure activity, however this is currently unavailable at this facility. For these reasons and for a formal workup by neurology we recommended transfer, and the patient was agreeable to transfer within the [facility]. She was accepted to [facility]. She was discharged in stable condition. This patient was seen by Aston Wilde PA-C under the supervision of Dr. Cagle.[] Patient Problems: Active and Suspected Problems Acute renal failure (Acute) Sepsis (Acute) - Physical Exam Vitals/I&O's: Vital Signs Temp Pulse Resp BP Pulse Ox 97.8 F 82 16 93/52 L 92 02/08/19 14:00 02/08/19 14:00 02/08/19 14:00 02/08/19 14:00 02/08/19 14:00 Oxygen Delivery Method Room Air Weight: 169 lb 5.04 oz Body Mass Index (BMI) 27.3 Finger Stick Blood Glucose 83 Intake and Output for Last 24 Hours 02/06/19 02/07/19 02/08/19 23:59 23:59 23:59 Intake Total 148.33 / 388.33 2420.32 / 2420.32 Output Total 600 / 1350 1300 / 1300 Balance -451.67 / -961.67 1120.32 / 1120.32 General: Alert, Oriented x3, Cooperative HEENT: Atraumatic, PERRLA, EOMI, Normocephalic Neck: Supple, No JVD, Negative Carotid Bruits Lungs: Clear to auscultation, Normal air movement Cardiovascular: Regular rate, No murmurs Abdomen: Bowel Sounds Present, Soft, Non Tender Extremities: No edema, Capillary Refill Less than 3 Seconds Skin: No rashes, No breakdown Musculoskeletal: No Tenderness to Palpation of Joints or Extremities Neurological: Cranial nerves II-XII grossly intact Psych/Mental Status: Normal Affect, Appropriate, Alert and oriented to time, place, person, mood and affect Microbiology Past 72 Hours 02/08/19 13:45 Urine Catheter - Blount Legionella Antigen - Final 02/08/19 13:45 Urine Catheter - Blount Streptococcus pneumoniae Antigen (M - Final 02/08/19 10:25 Mucosa - Nose Respiratory Panel (PCR) - Final Laboratory Results 02/07/19 17:00: WBC 8.3, RBC 4.33, Hgb 10.7 L, Hct 34.7 L, MCV 80.1 L, MCH 24.7 L, MCHC 30.8 L, RDW Std Deviation 53.9 H, RDW Coeff of Deborah 19.6 H, Plt Count 220, MPV 10.3, Immature Gran % (Auto) 1.600 H, Neut % (Auto) 66.5, Lymph % (Auto) 14.8 L, [place] % (Auto) 11.2 H, Eos % (Auto) 5.7 H, Baso % (Auto) 0.2, Absolute Neuts (auto) 5.5, Absolute Lymphs (auto) 1.23, Nucleated RBC % 0 02/07/19 17:00: PT 19.8 H, INR 1.7, APTT 36.3 H 02/07/19 17:00: Sodium 142, Potassium 3.3 L, Chloride 108 H, Carbon Dioxide 27.0, Anion Gap 7, BUN 21 H, Creatinine 2.44 H, Estim Creat Clear Calc 24.39, Est GFR (MDRD) Af Amer 26 L, Est GFR (MDRD) Non-Af 22 L, BUN/Creatinine Ratio 8.6 L, Glucose 98, Calcium 8.7, Total Bilirubin 0.40, AST 18, ALT 25, Alkaline Phosphatase 89, Troponin I 0.118 H, Total Protein 5.5 L, Albumin 2.5 L, Globulin 3.0, Albumin/Globulin Ratio 0.8 L 02/07/19 17:00: Lactic Acid 1.8 02/07/19 17:31: POC Glucose 83 02/07/19 17:50: Urine Color Straw, Urine Clarity Sl. Cloudy, Urine pH 5.0, Ur Specific [place] 1.010, Urine Protein Negative, Urine Glucose (UA) Normal, Urine Ketones Negative, Urine Occult Blood 10 H, Urine Nitrite Negative, Urine Bilirubin Negative, Urine Urobilinogen Normal, Ur Leukocyte Esterase 100 H, Urine RBC 0 SEEN, Urine WBC 0-5 SEEN, Ur Squamous Epith Cells 0-5 SEEN, Urine Bacteria 0 SEEN, Urine Mucus 0 SEEN 02/08/19 04:15: WBC 5.7, RBC 3.91 L, Hgb 9.8 L, Hct 31.9 L, MCV 81.6, MCH 25.1 L , MCHC 30.7 L, RDW Std Deviation 55.0 H, RDW Coeff of Deborah 19.6 H, Plt Count 208, MPV 10.1, Immature Gran % (Auto) 2.300 H, Neut % (Auto) 62.9, Lymph % (Auto) 15.4 L, [place] % (Auto) 10.3 H, Eos % (Auto) 8.7 H, Baso % (Auto) 0.4, Absolute Neuts (auto) 3.6, Absolute Lymphs (auto) 0.87, Nucleated RBC % 0 02/08/19 04:15: Sodium 143, Potassium 3.2 L, Chloride 109 H, Carbon Dioxide 28.0, Anion Gap 6, BUN 21 H, Creatinine 2.48 H, Estim Creat Clear Calc 23.99, Est GFR (MDRD) Af Amer 26 L, Est GFR (MDRD) Non-Af 21 L, BUN/Creatinine Ratio 8.5 L, Glucose 80, Calcium 8.1 L 02/08/19 04:15: Magnesium 2.0 02/08/19 08:35: Troponin I 0.100 H 02/08/19 08:57: Phosphorus 5.2 H 02/08/19 11:17: Troponin I 0.101 H 02/08/19 14:03: POC Glucose 88 02/08/19 14:23: Specimen Type ART, Sample Site R Radial, pH 7.46 H, Bicarbonate Actual 21.8 L, POC Total CO2 23, Base Excess -2, O2 Saturation 93 L, ABG pCO2 30.5 L, ABG pO2 63 L, Rojas Test POS, O2 Delivery Device Room Air, Blood Gas Notified Whom HOSP , Blood Gas Notified Time 1415 Current Medications Apixaban (Eliquis) 10 mg PO BID [facility] Stop: 02/10/19 10:01 Last Admin: 02/08/19 10:35 Dose: 10 mg Documented by: Apixaban (Eliquis) 5 mg PO BID [facility] Gabapentin (Neurontin) 300 mg PO TID [facility] Last Admin: 02/08/19 14:15 Dose: Not Given Documented by: Heparin Sodium (Beef Lung) () 50 units IV UD PRN PRN Reason: Port-a-Cath (VAD)Heparin Flush Heparin Sodium (Beef Lung) () 50 units IV UD PRN PRN Reason: R Port Heparin Flush Sodium Chloride () 250 mls @ 15 mls/hr IV .[id number] PRN PRN Reason: Saline Flush Levofloxacin (Levaquin Iv) 250 mg in 50 mls @ 50 mls/hr IV Q24@2200 [facility] Sodium Chloride () 250 mls @ 15 mls/hr IV .[id number] PRN PRN Reason: Saline Flush Sodium Chloride () 1,000 mls @ 150 mls/hr IV .[id number] [facility] Last Admin: 02/08/19 13:50 Dose: 150 mls/hr Documented by: Nutritional Formula (Lactose Free) (Ensure Enlive) 120 ml PO 4X/DAY [facility] Last Admin: 02/08/19 10:36 Dose: Not Given Documented by: Ondansetron HCl (Zofran) 8 mg PO Q8H PRN PRN PRN Reason: NAUSEA Last Admin: 02/08/19 08:49 Dose: 8 mg Documented by: Prednisone () 5 mg PO DAILYCM [facility] Last Admin: 02/08/19 10:34 Dose: 5 mg Documented by: Sodium Chloride () 10 - 40 ml IV UD PRN PRN Reason: Port-a-Cath (VAD) Flush Last Admin: 02/08/19 05:03 Dose: 20 ml Documented by: Sodium Chloride (0.9% Nacl (Sterile) Posiflush) 10 - 40 ml IV UD PRN PRN Reason: Port access or dressing change Sodium Chloride () 10 - 40 ml IV UD PRN PRN Reason: R Port Saline Flush Sodium Chloride (0.9% Nacl (Sterile) Posiflush) 10 - 40 ml IV UD PRN PRN Reason: Port access or dressing change Temazepam (Restoril) 30 mg PO QHS [facility] Last Admin: 02/07/19 22:39 Dose: 30 mg Documented by: Discharge Diet: - Discharge Activity: - - As directed by receiving facility Home Medications: Medications to take at Discharge Baclofen [Lioresal] 5 mg PO TID 12/12/18 Furosemide [Lasix] 20 mg PO DAILY PRN PRN 12/12/18 Gabapentin [Neurontin] 300 mg PO TID 12/12/18 Ondansetron [Zofran] 8 mg PO Q8H PRN PRN 12/12/18 Oxycodone Myristate [Xtampza ER] 18 mg PO Q12H 12/12/18 Prednisone 5 mg PO DAILY 12/12/18 Temazepam [Restoril] 30 mg PO QHS 12/12/18 Tizanidine HCl [Zanaflex] 4 mg PO Q8H PRN 12/12/18 Aloxi 5 ml IV TH 02/07/19 Apixaban [Eliquis] 5 mg PO BID 02/07/19 Primary Care Physician: Aaron Chand MD [Primary Care Provider] - Please follow up with your Primary Care Physician in: As directed Disposition: Acute care Hospital Minutes spent on discharge:: 45 Patient Condition:: Stable Medical Necessity - Tobacco Use Smoking Status: Never smoker Meaningful Use Info Meaningful Use Diagnoses (Choose all that apply): None applicable
--- NOTE | 2019-02-08 15:32 | NURSING ---
report called up to icu for transfer d/t repeating decreased responsivness. no questions voiced
--- NOTE | 2019-02-08 15:41 | NURSING ---
SHERRON Sanches provided transport to and from MRI and monitored pt during MRI. During transport to MRI at approximately 1425 pt alert and oriented, responding to questions, understands she is having MRI done. Pt attached to MRI compatible cardiac, SPO2 and B/P monitor. VS during MRI are as follows: 1435 HR 80bpm, B/P 124/67, 16 resp, 96%RA 1440 HR 72bpm, B/P 114/75, 16 resp, 92% RA 1442 HR 80bpm, B/P 118/67, 16 resp, 93% RA 1444 HR 77bpm, B/P 122/77, 16 resp, 97% RA 1446 HR 77bpm, B/P 103/71, 16 resp, 94% RA 1448 HR 78bpm, B/P 122/78, 16 resp, 92% RA 1450 HR 82bpm, B/P 117/63, 16 resp, 95% RA 1452 HR 74bpm, B/P 92/62, 16 resp, 93% RA 1459 HR 71bpm, B/P 110/67, 16 resp, 93% RA Upon completion of MRI, SHERRON Sanches and MRI techs enter the room to take patient out. Pt is snoring and unarousable with sternal rub. This mental status and snoring respirations are consistent with patient presentation during a rapid response at approximately 1400 today. SHERRON Sanches called nursing radiology supervisor who witnessed patient as well during rapid response. Pt's vitals remained stable and pt is transferred to admission bed from MRI table. Pt is escorted to PCU with SHERRON Sanches and nursing radiology supervisor SHERRON Rocha. Upon getting to PCU pt is seen by Dr. Cagle and SELENA Clancy. Pt is then transferred to ICU by SHERRON Sanches and SHERRON Rocha. Pt's Gene aware of pt's status and is waiting in ICU waiting room.
--- NOTE | 2019-02-08 15:54 | CCHN_ITS ---
Hospitalist Note Rapid response evaluation: Rapid response with patient decreased responsive status, vital signs stable, maintaining airway, oxygenation appropriate, sternal rub performed and patient eventually aroused and improved. Discontinuation of patient sedated medication given acute kidney injury as patient normally takes baclofen, Zanaflex, gabapen tin in addition to narcotic therapy for chronic pain syndrome likely etiology; ever had recurrent event following MRI brain. Given patient events although stable vital signs will transition to the ICU for closer monitoring pending transition to [facility]. Rapid response physical Examination: General: Decreased responsiveness, snoring loudly, does not awaken to sternal rub, not answering any orientation questions, laying in the PCU bed, no acute distress. Skin: normal color, turgor, no icterus, cyanosis. HEENT: AT/NC, EOMI, PERRLA, dry MM. Lungs: Manage breath sounds bilateral bases, snoring loudly, oxygenation attached normal, no rales, ronchi or wheezing. Heart: Regular rate and rhythm; no gallop, rub audible. Neurological: Decreased responsiveness, snoring loudly, does not awaken to sternal rub, not answering any orientation questions, laying in the PCU bed, no acute distress.; cognitive function not baseline intact; pupils equally reactive to light and accomodation despite current presentation, no blink w/ threat; cranial nerves unable to be assessed, not withdrawing to pain. Psychiatric: affect appears flat, no acute evidence of depressive or anxiety feelings.
--- NOTE | 2019-02-08 15:54 | PCM.PN.HOSP ---
Patient Problems: Active and Suspected Problems Acute renal failure (Acute) Sepsis (Acute) Subjective: Subjective: Patient without any acute events overnight per self and per nursing report with improvement in mental status and near baseline upon initial evaluation during the day however patient did have recurrent episodes x2 of decreased responsiveness, lethargy with stable vital signs and oxygenation although ABG did have mildly decreased PO2 with supplemental oxygen initiation. [facility] transfer discussed and requested MRI of the brain prior, without contrast given renal function although does have history of already metastatic cancer with prior mets to the spine is altering and are now paraplegic status, noted to be unremarkable. Patient and amenable to transfer. Given recurrent episodes of unresponsive nature patient was following MRI transition to the ICU for closer monitoring pending transfer bed status. When more alert denied any fevers, chills, nausea, emesis, abdominal pain, chest pain or dyspnea only noting concern about spasticity and tremors as well as abnormal sensation LE which was very difficult to describe. Objective: Physical Examination: General: Upon initial evaluation patient awake, alert, oriented to self, place and recent events, remains cooperative, seated upright in the PCU bed, mildly agitated, very concerned about her shakiness. Skin: normal color, turgor, no icterus, cyanosis. HEENT: AT/NC, EOMI, PERRLA, dry MM. Lungs: CTA bilaterally, moderate effort, moderate decrease BL bases, no rales, ronchi or wheezing; Heart: Regular rate and rhythm; no gallop, rub audible. Abdomen: soft, NTTP, ND, normal BS. Extremities: no cyanosis, clubbing, bilateral lower extremity ankle nonpitting edema, chronic paraplegia. Neurological: Initial evaluation patient awake, alert, oriented as noted; cognitive function appears improved, more near baseline intact intact upon questioning; pupils equally reactive to light and accomodation; cranial nerves II-XII grossly normal, chronic paraplegia, no spastic appearance but tremoring, large, notes difficulty holding items secondary to this. Psychiatric: affect appears anxious, no acute evidence of depressive feelings. Vitals/I&O's: Vital Signs Temp Pulse Resp BP Pulse Ox 97.8 F 82 16 93/52 L 92 02/08/19 14:00 02/08/19 14:00 02/08/19 14:00 02/08/19 14:00 02/08/19 14:00 Oxygen Delivery Method Room Air Weight: 169 lb 5.04 oz Body Mass Index (BMI) 27.3 Finger Stick Blood Glucose 83 Intake and Output for Last 24 Hours 02/06/19 02/07/19 02/08/19 23:59 23:59 23:59 Intake Total 148.33 / 388.33 3152.92 / 3152.92 Output Total 600 / 1350 1300 / 1300 Balance -451.67 / -961.67 1852.92 / 1852.92 Microbiology Past 72 Hours 02/08/19 13:45 Urine Catheter - Richardson Legionella Antigen - Final 02/08/19 13:45 Urine Catheter - Richardson Streptococcus pneumoniae Antigen (M - Final 02/08/19 10:25 Mucosa - Nose Respiratory Panel (PCR) - Final Laboratory Results 02/07/19 17:00: WBC 8.3, RBC 4.33, Hgb 10.7 L, Hct 34.7 L, MCV 80.1 L, MCH 24.7 L, MCHC 30.8 L, RDW Std Deviation 53.9 H, RDW Coeff of Deborah 19.6 H, Plt Count 220, MPV 10.3, Immature Gran % (Auto) 1.600 H, Neut % (Auto) 66.5, Lymph % (Auto) 14.8 L, [place] % (Auto) 11.2 H, Eos % (Auto) 5.7 H, Baso % (Auto) 0.2, Absolute Neuts (auto) 5.5, Absolute Lymphs (auto) 1.23, Nucleated RBC % 0 02/07/19 17:00: PT 19.8 H, INR 1.7, APTT 36.3 H 02/07/19 17:00: Sodium 142, Potassium 3.3 L, Chloride 108 H, Carbon Dioxide 27.0, Anion Gap 7, BUN 21 H, Creatinine 2.44 H, Estim Creat Clear Calc 24.39, Est GFR (MDRD) Af Amer 26 L, Est GFR (MDRD) Non-Af 22 L, BUN/Creatinine Ratio 8.6 L, Glucose 98, Calcium 8.7, Total Bilirubin 0.40, AST 18, ALT 25, Alkaline Phosphatase 89, Troponin I 0.118 H, Total Protein 5.5 L, Albumin 2.5 L, Globulin 3.0, Albumin/Globulin Ratio 0.8 L 02/07/19 17:00: Lactic Acid 1.8 02/07/19 17:31: POC Glucose 83 02/07/19 17:50: Urine Color Straw, Urine Clarity Sl. Cloudy, Urine pH 5.0, Ur Specific [place] 1.010, Urine Protein Negative, Urine Glucose (UA) Normal, Urine Ketones Negative, Urine Occult Blood 10 H, Urine Nitrite Negative, Urine Bilirubin Negative, Urine Urobilinogen Normal, Ur Leukocyte Esterase 100 H, Urine RBC 0 SEEN, Urine WBC 0-5 SEEN, Ur Squamous Epith Cells 0-5 SEEN, Urine Bacteria 0 SEEN, Urine Mucus 0 SEEN 02/08/19 04:15: WBC 5.7, RBC 3.91 L, Hgb 9.8 L, Hct 31.9 L, MCV 81.6, MCH 25.1 L, MCHC 30.7 L, RDW Std Deviation 55.0 H, RDW Coeff of Deborah 19.6 H, Plt Count 208, MPV 10.1, Immature Gran % (Auto) 2.300 H, Neut % (Auto) 62.9, Lymph % (Auto) 15.4 L, [place] % (Auto) 10.3 H, Eos % (Auto) 8.7 H, Baso % (Auto) 0.4, Absolute Neuts (auto) 3.6, Absolute Lymphs (auto) 0.87, Nucleated RBC % 0 02/08/19 04:15: Sodium 143, Potassium 3.2 L, Chloride 109 H, Carbon Dioxide 28.0, Anion Gap 6, BUN 21 H, Creatinine 2.48 H, Estim Creat Clear Calc 23.99, Est GFR (MDRD) Af Amer 26 L, Est GFR (MDRD) Non-Af 21 L, BUN/Creatinine Ratio 8.5 L, Glucose 80, Calcium 8.1 L 02/08/19 04:15: Magnesium 2.0 02/08/19 08:35: Troponin I 0.100 H 02/08/19 08:57: Phosphorus 5.2 H 02/08/19 11:17: Troponin I 0.101 H 02/08/19 14:03: POC Glucose 88 02/08/19 14:23: Specimen Type ART, Sample Site R Radial, pH 7.46 H, Bicarbonate Actual 21.8 L, POC Total CO2 23, Base Excess -2, O2 Saturation 93 L, ABG pCO2 30.5 L, ABG pO2 63 L, Rojas Test POS, O2 Delivery Device Room Air, Blood Gas Notified Whom ALICIA ROWLAND, Blood Gas Notified Time 1415 Current Medications Apixaban (Eliquis) 10 mg PO BID [facility] Stop: 02/10/19 10:01 Last Admin: 02/08/19 10:35 Dose: 10 mg Documented by: Apixaban (Eliquis) 5 mg PO BID [facility] Gabapentin (Neurontin) 300 mg PO TID [facility] Last Admin: 02/08/19 14:15 Dose: Not Given Documented by: Heparin Sodium (Beef Lung) () 50 units IV UD PRN PRN Reason: Port-a-Cath (VAD)Heparin Flush Heparin Sodium (Beef Lung) () 50 units IV UD PRN PRN Reason: R Port Heparin Flush Sodium Chloride () 250 mls @ 15 mls/hr IV .[id number] PRN PRN Reason: Saline Flush Levofloxacin (Levaquin Iv) 250 mg in 50 mls @ 50 mls/hr IV Q24@2200 [facility] Sodium Chloride () 250 mls @ 15 mls/hr IV .[id number] PRN PRN Reason: Saline Flush Sodium Chloride () 1,000 mls @ 150 mls/hr IV .[id number] [facility] Last Admin: 02/08/19 13:50 Dose: 150 mls/hr Documented by: Nutritional Formula (Lactose Free) (Ensure Enlive) 120 ml PO 4X/DAY [facility] Last Admin: 02/08/19 15:35 Dose: Not Given Documented by: Ondansetron HCl (Zofran) 8 mg PO Q8H PRN PRN PRN Reason: NAUSEA Last Admin: 02/08/19 08:49 Dose: 8 mg Documented by: [facility] Admin: 02/08/19 10:34 Dose: 5 mg Documented by: Sodium Chloride () 10 - 40 ml IV UD PRN PRN Reason: Port-a-Cath (VAD) Flush Last Admin: 02/08/19 05:03 Dose: 20 ml Documented by: Sodium Chloride (0.9% Nacl (Sterile) Posiflush) 10 - 40 ml IV UD PRN PRN Reason: Port access or dressing change Sodium Chloride () 10 - 40 ml IV UD PRN PRN Reason: R Port Saline Flush Sodium Chloride (0.9% Nacl (Sterile) Posiflush) 10 - 40 ml IV UD PRN PRN Reason: Port access or dressing change Temazepam (Restoril) 30 mg PO QHS [facility] Last Admin: 02/07/19 22:39 Dose: 30 mg Documented by: ROMAN Vital Signs/Narrative: Vital Signs Temp Pulse Resp BP Pulse Ox 02/08/19 14:00 97.8 F 82 16 93/52 L 92 Medical Necessity - Tobacco Use Smoking Status: Never smoker Assessment/Plan All Active Problems Acute renal failure (Acute) Sepsis (Acute) Septic shock (Acute) UTI (urinary tract infection) (Acute) Pneumonia (Acute) KELLEE (acute kidney injury) (Acute) Hypokalemia (Acute) Encephalopathy acute (Acute) The patient is a 53 y/o F w/ PMHx: Renal Cell Carcinoma ongoing chemotherapy last the day prior to current presentation, Chronic Neurogenic Bladder with self catheterization program with paraplegia following lesion into her spine, Chronic Pain Syndrome recently discharged on 02/02/19 following treatment of Septic Shock, NSTEMI, Acute PE, complicated UTI, KELLEE w/ resolution at that time who re-presented to the [facility] ED on 02/07/19 with extreme fatigue, lethargy, intermittent periods of decreased consciousness, difficult to arouse occurring several times during the day eventually prompting her to bring him to the emergency room with additional history of nausea and emesis over the last 12 hours prior to presentation. 1. 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 Patient was admitted to the PCU, maintain on telemetry monitoring, repeat enzyme obtained as noted and decreased, improved from prior, initiated on IV Levaquin for possibility of pneumonia given unclear etiology for acute presentation/encephalopathy, administered IV fluids although increased in the a.m. given KELLEE, clinically improved with orientation x3 although slow responses within complaints of increased tremors and spasticity following admission with recurrent episode x2 of unresponsiveness with stable vital signs, stable oxygenation but difficult to arouse even with sternal rub. Following episode x2 patient transitioned to the ICU for close monitoring although as noted vital signs stable. MRI of the brain obtained without contrast given acute kidney injury which was unremarkable per request by [facility]. Given patient questionable neurological abnormalities and underlying prior history with metastatic disease transfer arranged to [facility] with MRI obtained prior per their request. 2. ? Acute Bronchitis, Pneumonia, Lower Suspicion: Upon presentation chest x-ray with question of increased atelectasis and small effusion right base otherwise stable from prior, lower suspicion as etiology for acute encephalopathy, had been initiated on IV Levaquin, renally dosed which has been maintained pending further evaluations, respiratory viral panel unremarkable, urine antigens unremarkable, would plan on de-escalating off antibiotic therapy. 3. Increased Spasticity, Tremors, Unclear Etiology: Per discussion with [facility] MRI brain obtained without contrast given patient current renal function although preference would have been with contrast given underlying history of metastatic cancer, unremarkable, maintained on telemetry, planning transfer to CCU with consideration for neurology evaluation as well as EEG and continue neurological evaluations. 4. Acute kidney injury: Secondary to recent GI losses, recent abx therapy. Admission BUN/Cr 21/2.44, repeat 02/08/19 BUN/Cr 21/2.48, prior baseline creatinine noted to be 0.51. Will continue to hydrate, 2L administered and continued 150 MIVF. If not improving would plan FeNa and renal US assessment. 5. 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 Chronic pain syndrome: Given patient recurrent lethargy, holding baclofen, gabapentin, oxycodone, Restoril, Zanaflex, closely monitor given potential for withdrawal. 7. Recent pulmonary embolism: Continued on Eliquis however if any concerns about oral intake with recurrent unresponsive events may need to transition to therapeutic Lovenox renally dosed versus heparin drip. 8. Renal Cell Carcinoma: Patient w/ ongoing chemotherapy, most recently prior to most recent admission, mag and phos levels requested, oncology consulted pending transfer. 9. Chronic Neurogenic Bladder: Result of renal cell CA s/p resection spinal metastases, maintain self catheterization program, richardson catheter in place. UA unremarkable, UCx pending. 10. DVT prophylaxis: Continue patient on Eliquis regimen with low threshold for transition to therapeutic Lovenox dosed versus heparin drip if concern for oral intake.
[2019-02-08] MEDS: 0.9% Normal Saline 1,000 ML 100 ML IV ×2 (16:00→16:19)
[2019-02-08 17:00] LABS: Ammonia < 10.0 umol/L (11-32)
[2019-02-09] VITALS (11 sets, daily range): BP systolic 120–137; BP diastolic 80–95; PULSE 83–109; RESP 12–19; TEMP 36.6–37.1; O2SAT 95–100
[2019-02-09] MEDS: 0.9% Normal Saline 1,000 ML 100 ML IV ×2 (02:10→13:46)
[2019-02-09 05:21] LABS: Absolute Lymphocyte Count 0.92 X10^3/uL (0.83-4.51); Absolute Neutrophil Count 4.9 X10^3/uL (2.0-7.7); Basophil# 0.03 X10^3/uL; Basophil% 0.4 % (0-1); Eosinophil# 0.33 X10^3/uL; Eosinophils% 4.7 % (0-5); Hematocrit 33.5 % (37-47); Hemoglobin 10.2 g/dL (12.0-15.0); Lymphocyte # 0.92 X10^3/ul (4.0); Lymphocyte % 13.1 % (19-41); Mean Corp Hgb Conc 30.4 g/dL (32-36); Mean Corpuscular Hgb 24.9 pg (27.0-32.0); Mean Corpuscular Volume 81.9 fL (81-99); Mean Platelet Vol. 9.7 fl (6.2-12.0); Monocyte# 0.76 X10^3/uL; Monocyte% 10.8 % (0-10); NRBC Flagged by Analyzer 0 % (0-5); Neutrophil # 4.87 X10^3/uL (2.7-7.7); Neutrophil % 69.6 % (47-70); POSITIVE MORPHOLOGY YES; Platelet Count 279 K/mm3 (150-450); RBC Distribution Width CV 20.2 % (11.6-14.6); RBC Distribution Width SD 58.6 fl (35.1-43.9); Red Blood Count 4.09 M/mm3 (4.2-5.4)
[2019-02-09 05:28] LABS: Differential Indicated SCAN CRITERIA MET
[2019-02-09 05:49] LABS: Anion Gap 7 (5-15); BUN 20 mg/dL (7-18); BUN/Creat Ratio 7.8 RATIO (10-20); Calcium,Total 8.2 mg/dL (8.5-10.1); Chloride 118 mmol/L (98-107); Creatinine, Serum 2.58 mg/dL (0.55-1.02); EST Glomerular Filtration Rate 21 mL/min (>60); Est Glom Filt Rate - Afr Amer 25 mL/min (>60); Estimated Creatinine Clearance 23.06 ml/min; Glucose 77 mg/dL (74-106); Potassium 4.1 mmol/L (3.5-5.1); Sodium Level 149 mmol/L (136-145)
--- NOTE | 2019-02-09 05:55 | EKG12_ITS ---
Test Reason : AM EKG Blood Pressure : / mmHG Vent. Rate : 105 BPM Atrial Rate : 105 BPM P-R Int : 130 ms QRS Dur : 084 ms QT Int : 374 ms P-R-T Axes : 032 -28 130 degrees QTc Int : 494 ms Sinus tachycardia with frequent and consecutive Premature ventricular complexes ST & T wave abnormality, consider anterior ischemia Abnormal ECG When compared with ECG of 08-FEB-2019 14:10, MANUAL COMPARISON REQUIRED, DATA IS UNCONFIRMED Confirmed by CARLENE MOTLEY ([id number]), editor trade journal GEORGINA ASTUDILLO ([id number]) on 02/13/2019 10:52:59 AM Referred By: Aguilar Graham Confirmed By:CARLENE MOTLEY
[2019-02-09 06:11] LABS: Anisocytosis 1+; Differential Comment SCANNED
--- NOTE | 2019-02-09 07:43 | PN_ITS ---
Patient Problems: Active and Suspected Problems Acute renal failure (Acute) Sepsis (Acute) Subjective: Patient with no acute events overnight per self and per nursing report. Patient had no recurrence unresponsive events. She has been extremely anxious and intermittently tearful, dying. Discussed evaluation this morning and noted mild increase further in her creatinine with nephrology evaluation. [place] pending. Recent ultrasound during prior admission unremarkable. Discussed the patient is still awaiting transfer to [facility] and [facility] pending bed availability. Patient denies fevers, chills, nausea, emesis, abdominal pain, chest pain or dyspnea. Objective: Physical Examination: General: Currently awake, alert, oriented to self, place and recent events, remains cooperative, seated upright in the ICU bed, less tremors but again seems to increase with level of anxiety which was discussed, intermittently still tearful but again discussed that patient appears clinically stable as notable for her currently dying. Skin: normal color, turgor, no icterus, cyanosis. HEENT: AT/NC, EOMI, PERRLA, improved MMM. Lungs: CTA bilaterally, moderate effort, moderate decrease BL bases, no rales, ronchi or wheezing; Heart: Regular rate and rhythm; no gallop, rub audible. Abdomen: soft, NTTP, ND, normal BS. Extremities: no cyanosis, clubbing, bilateral lower extremity ankle nonpitting edema, chronic paraplegia. Neurological: Initial evaluation patient awake, alert, oriented as noted; cognitive function appears improved, more near baseline intact intact upon questioning; pupils equally reactive to light and accomodation; cranial nerves II-XII grossly normal, chronic paraplegia, no spastic appearance, hands intimately trembling but coincides with anxiety level, lessened from day prior. Psychiatric: affect appears again intermittently anxious and tearful, afraid of dying. Vitals/I&O's: Vital Signs Temp Pulse Resp BP Pulse Ox 97.9 F 94 15 131/80 H 100 02/09/19 04:45 02/09/19 04:45 02/09/19 04:45 02/09/19 04:45 02/09/19 04:45 Oxygen Delivery Method Room Air Weight: 173 lb 15.115 oz Body Mass Index (BMI) 27.3 Finger Stick Blood Glucose 83 Intake and Output for Last 24 Hours 02/07/19 02/08/19 02/09/19 23:59 23:59 23:59 Intake Total 148.33 / 388.33 3477.92 / 4397.92 1628.33 / 1628.33 Output Total 600 / 1350 1300 / 2300 1525 / 1525 Balance -451.67 / -961.67 2177.92 / 2097.92 103.33 / 103.33 Microbiology Past 72 Hours 02/08/19 13:45 Urine Catheter - Richardson Legionella Antigen - Final 02/08/19 13:45 Urine Catheter - Richardson Streptococcus pneumoniae Antigen (M - Final 02/08/19 10:25 Mucosa - Nose Respiratory Panel (PCR) - Final Laboratory Results 02/08/19 04:15: Magnesium 2.0 02/08/19 08:35: Troponin I 0.100 H 02/08/19 08:57: Phosphorus 5.2 H 02/08/19 11:17: Troponin I 0.101 H 02/08/19 14:03: POC Glucose 88 02/08/19 14:23: Specimen Type ART, Sample Site R Radial, pH 7.46 H, Bicarbonate Actual 21.8 L, POC Total CO2 23, Base Excess -2, O2 Saturation 93 L, ABG pCO2 30.5 L, ABG pO2 63 L, Rojas Test POS, O2 Delivery Device Room Air, Blood Gas Notified Whom [facility] , Blood Gas Notified Time 1415 02/08/19 16:15: Troponin I 0.106 H 02/08/19 16:15: Ammonia < 10.0 L 02/09/19 05:00: WBC 7.0, RBC 4.09 L, Hgb 10.2 L, Hct 33.5 L, MCV 81.9, MCH 24.9 L, MCHC 30.4 L, RDW Std Deviation 58.6 H, RDW Coeff of Deborah 20.2 H, Plt Count 279, MPV 9.7, Immature Gran % (Auto) 1.400 H, Neut % (Auto) 69.6, Lymph % (Auto) 13.1 L, [place] % (Auto) 10.8 H, Eos % (Auto) 4.7, Baso % (Auto) 0.4, Absolute Neuts (auto) 4.9, Absolute Lymphs (auto) 0.92, Nucleated RBC % 0, Differential Comment SCANNED, Anisocytosis 1+ 02/09/19 05:00: Sodium 149 H, Potassium 4.1, Chloride 118 H, Carbon Dioxide 24.0, Anion Gap 7, BUN 20 H, Creatinine 2.58 H, Estim Creat Clear Calc 23.06, Est GFR (MDRD) Af Amer 25 L, Est GFR (MDRD) Non-Af 21 L, BUN/Creatinine Ratio 7.8 L, Glucose 77, Calcium 8.2 L Current Medications Apixaban (Eliquis) 10 mg PO BID [facility] Stop: 02/10/19 10:01 Last Admin: 02/08/19 22:10 Dose: 10 mg Documented by: Apixaban (Eliquis) 5 mg PO BID [facility] Heparin Sodium (Beef Lung) () 50 units IV UD PRN PRN Reason: Port-a-Cath (VAD)Heparin Flush Heparin Sodium (Beef Lung) () 50 units IV UD PRN PRN Reason: R Port Heparin Flush Sodium Chloride () 250 mls @ 15 mls/hr IV .[id number] PRN PRN Reason: Saline Flush Sodium Chloride () 250 mls @ 15 mls/hr IV .[id number] PRN PRN Reason: Saline Flush Sodium Chloride () 1,000 mls @ 100 mls/hr IV .Q10H [facility] Last Infusion: 02/09/19 06:03 Dose: 100 mls/hr Documented by: Nutritional Formula (Lactose Free) (Ensure Enlive) 120 ml PO 4X/DAY [facility] Last Admin: 02/08/19 22:13 Dose: Not Given Documented by: Ondansetron HCl (Zofran) 8 mg PO Q8H PRN PRN PRN Reason: NAUSEA Last Admin: 02/08/19 08:49 Dose: 8 mg Documented by: [facility] () [facility] Last Admin: 02/08/19 10:34 Dose: 5 mg Documented by: Sodium Chloride () 10 - 40 ml IV UD PRN PRN Reason: Port-a-Cath (VAD) Flush Last Admin: 02/08/19 05:03 Dose: 20 ml Documented by: Sodium Chloride (0.9% Nacl (Sterile) Posiflush) 10 - 40 ml IV UD PRN PRN Reason: Port access or dressing change Sodium Chloride () 10 - 40 ml IV UD PRN PRN Reason: R Port Saline Flush Sodium Chloride (0.9% Nacl (Sterile) Posiflush) 10 - 40 ml IV UD PRN PRN Reason: Port access or dressing change STROKE Vital Signs/Narrative: Vital Signs Temp Pulse Resp BP Pulse Ox 02/09/19 04:45 97.9 F 94 15 131/80 H 100 02/09/19 04:00 108 H Medical Necessity - Tobacco Use Smoking Status: Never smoker Assessment/Plan All Active Problems Acute renal failure (Acute) Sepsis (Acute) Septic shock (Acute) UTI (urinary tract infection) (Acute) Pneumonia (Acute) KELLEE (acute kidney injury) (Acute) Hypokalemia (Acute) Encephalopathy acute (Acute) The patient is a 53 y/o F w/ PMHx: Renal Cell Carcinoma ongoing chemotherapy last the day prior to current presentation, Chronic Neurogenic Bladder with self catheterization program with paraplegia following lesion into her spine, Chronic Pain Syndrome recently discharged on 02/02/19 following treatment of Septic S hock, NSTEMI, Acute PE, complicated UTI, KELLEE w/ resolution at that time who re- presented to the [facility] ED on 02/07/19 with extreme fatigue, lethargy, intermittent periods of decreased consciousness, difficult to arouse occurring several times during the day eventually prompting her to bring him to the emergency room with additional history of nausea and emesis over the last 12 hours prior to presentation. 1. 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 Patient was admitted to the PCU, maintain on telemetry monitoring, repeat enzyme obtained as noted and decreased, improved from prior, initiated on IV Levaquin for possibility of pneumonia given unclear etiology for acute presentation/encephalopathy, administered IV fluids although increased in the a.m. given KELLEE, clinically improved with orientation x3 although slow responses within complaints of increased tremors and spasticity following admission with recurrent episode x2 of unresponsiveness with stable vital signs, stable oxygenation but difficult to arouse even with sternal rub. Following episode x2 patient transitioned to the ICU for close monitoring although as noted vital signs stable. MRI of the brain obtained without contrast given acute kidney injury which was unremarkable per request by [facility]. Overnight ICU without acute events, still anxious and tearful. Will plan to transfer for neurological evaluation once [facility] has bed. ICU physician consulted 02/08/19 following rapids. 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 2. ? Acute Bronchitis, Pneumonia, Lower Suspicion, Ruled OUT: Upon presentation chest x-ray with question of increased atelectasis and small effusion right base otherwise stable from prior, lower suspicion as etiology for acute encephalopathy, had been initiated on IV Levaquin, renally dosed which has been maintained pending further evaluations, respiratory viral panel unremarkable, urine antigens unremarkable, discontinued antibiotic therapy. 3. Increased Spasticity, Tremors, Unclear Etiology: Per discussion with [facility] MRI brain obtained without contrast given patient current renal function although preference would have been with contrast given underlying history of metastatic cancer, unremarkable, maintained on telemetry, awaiting transfer to [facility] for neurology evaluation as well as potential EEG and continued neurological evaluations. 4. Acute kidney injury: Secondary to recent GI losses, recent abx therapy. Admission BUN/Cr 21/2.44, prior baseline creatinine noted to be 0.51, repeat 02/08/19 BUN/Cr 21/2.48-->02/09/19 BUN/Cr 20/2.58, increasing, will request FeNa and request renal consultation. Patient had recent normal renal ultrasound thus will not repeat. Nephrology amenable to low-dose Ativan for severe anxiety. 5. 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 6. Chronic pain syndrome: Given patient recurrent lethargy, holding baclofen, gabapentin, oxycodone, Restoril, Zanaflex, closely monitor given potential for withdrawal. 7. Recent pulmonary embolism: Continued on Eliquis however if any concerns about oral intake with recurrent unresponsive events may need to transition to therapeutic Lovenox renally dosed versus heparin drip. 8. Renal Cell Carcinoma: Patient w/ ongoing chemotherapy, most recently prior to most recent admission, mag and phos levels requested, oncology consulted and aware. 9. Chronic Neurogenic Bladder: Result of renal cell CA s/p resection spinal metastases, maintain self catheterization program, richardson catheter in place. UA unremarkable, UCx pending. 10. DVT prophylaxis: SCDs, Eliquis. Code Visit Inpatient E&M: 71461 Subs Hosp L2
--- NOTE | 2019-02-09 08:45 | PCM.CONS.R ---
Consultation - Renal 02/09/19 PCP/ Referring MD: Requesting physician: Marily Cagle MD Primary care physician: Aaron Chand MD Reason for Consultation:: KELLEE in single kidney - History of Present Illness History of Present Illness: The patient is a 53 year old F with metastatic RCC s/p right nephrectomy on chemo managed by Dr Valiente admitted for confusion, tremors. CT head and MRI of brain without iv contrast both unremarkable for acute findings. She was recently hospitalized in January for shock sepsis, PE, NSTEMI with Takotsubo LVEF 15% underwent cath with LV gram showing EF 35%. She had KELLEE during last hospitalization due to shock that resolved prior to discharge with creatinine 0.5 on 02/02. She has an indwelling richardson due to neurogenic bladder, paralysis with history of frequent UTI's. She is tearful, anxious with tremors. Creatinine was elevated at 2.4 on admit progressed to 2.58 today. She received iv fluids. BP dropped to 90/52 on 02/08. No recent iv contrast exposure. Pt spouse at bedside providing history. She had nausea, spitting up with decreased oral intake since Thursday. Last BM over weekend. She had stable vitals at home measured by home care. She is currently nonoliguric. She denied NSAID use at home. She took one lasix dose at home prior to admit for edema. She has been having chills without fever. Denied diarrhea, chest pain, shortness of breath or cough. - Allergies Allergies: Allergies No Known Allergies Allergy (Verified 02/07/19 16:16) - Current Medications Current Medications: Current Medications Apixaban (Eliquis) 10 mg PO BID [facility] Stop: 02/10/19 10:01 Last Admin: 02/08/19 22:10 Dose: 10 mg Documented by: Apixaban (Eliquis) 5 mg PO BID [facility] Heparin Sodium (Beef Lung) () 50 units IV UD PRN PRN Reason: Port-a-Cath (VAD)Heparin Flush Heparin Sodium (Beef Lung) () 50 units IV UD PRN PRN Reason: R Port Heparin Flush Sodium Chloride () 250 mls @ 15 mls/hr IV .[id number] PRN PRN Reason: Saline Flush Sodium Chloride () 250 mls @ 15 mls/hr IV .[id number] PRN PRN Reason: Saline Flush Sodium Chloride () 1,000 mls @ 100 mls/hr IV .Q10H [facility] Last Infusion: 02/09/19 06:03 Dose: 100 mls/hr Documented by: Nutritional Formula (Lactose Free) (Ensure Enlive) 120 ml PO 4X/DAY [facility] Last Admin: 02/08/19 22:13 Dose: Not Given Documented by: Ondansetron HCl (Zofran) 8 mg PO Q8H PRN PRN PRN Reason: NAUSEA Last Admin: 02/08/19 08:49 Dose: 8 mg Documented by: Prednisone () 5 mg PO DAILYCM [facility] Last Admin: 02/08/19 10:34 Dose: 5 mg Documented by: Sodium Chloride () 10 - 40 ml IV UD PRN PRN Reason: Port-a-Cath (VAD) Flush Last Admin: 02/08/19 05:03 Dose: 20 ml Documented by: Sodium Chloride (0.9% Nacl (Sterile) Posiflush) 10 - 40 ml IV UD PRN PRN Reason: Port access or dressing change Sodium Chloride () 10 - 40 ml IV UD PRN PRN Reason: R Port Saline Flush Sodium Chloride (0.9% Nacl (Sterile) Posiflush) 10 - 40 ml IV UD PRN PRN Reason: Port access or dressing change - 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 - Social History Smoking Status: Never smoker Drugs: None - Family History Maternal History Items: - - Patient with maternal family history of lung cancer, tobacco use history. Paternal History Items: - - Patient with a paternal family history of lung cancer, tobacco use history concurrently. Review of Systems Constitutional: Reports: Anorexia, Chills, Malaise, Weakness. Denies: Fever Eyes: Reports: Double vision - with right lateral gaze. Denies: Blurred vision HEENT: Denies: Head Aches Cardiovascular: Denies: Chest Pain, Edema, Palpitations, Syncope Respiratory: Denies: Cough, Shortness of Breath Gastrointestinal: Reports: Nausea - spitting up, - - last BM Thursday. Denies: Abdominal Pain, Constipation, Diarrhea, Vomiting Genitourinary: Reports: - - indwelling richardson catheter due to neurogenic bladder. Denies: Dysuria Neurological: Reports: Confusion - episode, now stable, Tremor Psychiatric: Reports: Anxiety, Depression Hematologic/ Lymphatic: Reports: Hx of blood clot - PE last admit Patient Problems: Active and Suspected Problems Acute renal failure (Acute) Sepsis (Acute) - Physical Exam Vitals/I&O's: Vital Signs Temp Pulse Resp BP Pulse Ox 97.9 F 94 15 131/80 H 100 02/09/19 04:45 02/09/19 04:45 02/09/19 04:45 02/09/19 04:45 02/09/19 04:45 Oxygen Delivery Method Room Air Weight: 78.9 kg Body Mass Index (BMI) 27.3 Finger Stick Blood Glucose 83 Intake and Output for Last 24 Hours 02/07/19 02/08/19 02/09/19 23:59 23:59 23:59 Intake Total 148.33 / 388.33 3477.92 / 4397.92 1628.33 / 1628.33 Output Total 600 / 1350 1300 / 2300 1525 / 1525 Balance -451.67 / -961.67 2177.92 / 2097.92 103.33 / 103.33 General: Alert, Oriented x3, Cooperative, - - anxious HEENT: PERRLA, EOMI Oral: Moist Mucosa Neck: Supple, No JVD Lungs: Clear to auscultation Cardiovascular: Regular rate, No rub noted Abdomen: Bowel Sounds Present, Soft, Non Tender, Non-Distended Extremities: Edema - trace Skin: - - multiple tattoos Musculoskeletal: No Muscle Wasting Neurological: - - paralysis BLE Psych/Mental Status: Anxious, Alert and oriented to time, place, person, mood and affect Microbiology Past 72 Hours 02/08/19 13:45 Urine Catheter - Richardson Legionella Antigen - Final 02/08/19 13:45 Urine Catheter - Richardson Streptococcus pneumoniae Antigen (M - Final 02/08/19 10:25 Mucosa - Nose Respiratory Panel (PCR) - Final Laboratory Results 02/08/19 08:35: Troponin I 0.100 H 02/08/19 08:57: Phosphorus 5.2 H 02/08/19 11:17: Troponin I 0.101 H 02/08/19 14:03: POC Glucose 88 02/08/19 14:23: Specimen Type ART, Sample Site R Radial, pH 7.46 H, Bicarbonate Actual 21.8 L, POC Total CO2 23, Base Excess -2, O2 Saturation 93 L, ABG pCO2 30.5 L, ABG pO2 63 L, Rojas Test POS, O2 Delivery Device Room Air, Blood Gas Notified Whom LAICIA [facility], Blood Gas Notified Time 1415 02/08/19 16:15: Troponin I 0.106 H 02/08/19 16:15: Ammonia < 10.0 L 02/09/19 05:00: WBC 7.0, RBC 4.09 L, Hgb 10.2 L, Hct 33.5 L, MCV 81.9, MCH 24.9 L, MCHC 30.4 L, RDW Std Deviation 58.6 H, RDW Coeff of Deborah 20.2 H, Plt Count 279, MPV 9.7, Immature Gran % (Auto) 1.400 H, Neut % (Auto) 69.6, Lymph % (Auto) 13.1 L, Rich % (Auto) 10.8 H, Eos % (Auto) 4.7, Baso % (Auto) 0.4, Absolute Neuts (auto) 4.9, Absolute Lymphs (auto) 0.92, Nucleated RBC % 0, Differential Comment SCANNED, Anisocytosis 1+ 02/09/19 05:00: Sodium 149 H, Potassium 4.1, Chloride 118 H, Carbon Dioxide 24.0, Anion Gap 7, BUN 20 H, Creatinine 2.58 H, Estim Creat Clear Calc 23.06, Est GFR (MDRD) Af Amer 25 L, Est GFR (MDRD) Non-Af 21 L, BUN/Creatinine Ratio 7.8 L, Glucose 77, Calcium 8.2 L Clinical Impression(s) from Imaging Studies Brain MRI 02/08/19 12:21 IMPRESSION: 1. Negative unenhanced MRI of the brain. Electronically Signed: Raymond Cabello MD at 15:32 EST , Service support , Current Medications Apixaban (Eliquis) 10 mg PO BID [facility] Stop: 02/10/19 10:01 Last Admin: 02/08/19 22:10 Dose: 10 mg Documented by: Apixaban (Eliquis) 5 mg PO BID [facility] Heparin Sodium (Beef Lung) () 50 units IV UD PRN PRN Reason: Port-a-Cath (VAD)Heparin Flush Heparin Sodium (Beef Lung) () 50 units IV UD PRN PRN Reason: R Port Heparin Flush Sodium Chloride () 250 mls @ 15 mls/hr IV .[id number] PRN PRN Reason: Saline Flush Sodium Chloride () 250 mls @ 15 mls/hr IV .[id number] PRN PRN Reason: Saline Flush Sodium Chloride () 1,000 mls @ 100 mls/hr IV .Q10H [facility] Last Infusion: 02/09/19 06:03 Dose: 100 mls/hr Documented by: Nutritional Formula (Lactose Free) (Ensure Enlive) 120 ml PO 4X/DAY [facility] Last Admin: 02/08/19 22:13 Dose: Not Given Documented by: Ondansetron HCl (Zofran) 8 mg PO Q8H PRN PRN PRN Reason: NAUSEA Last Admin: 02/08/19 08:49 Dose: 8 mg Documented by: [facility] () [facility] Last Admin: 02/08/19 10:34 Dose: 5 mg Documented by: Sodium Chloride () 10 - 40 ml IV UD PRN PRN Reason: Port-a-Cath (VAD) Flush Last Admin: 02/08/19 05:03 Dose: 20 ml Documented by: Sodium Chloride (0.9% Nacl (Sterile) Posiflush) 10 - 40 ml IV UD PRN PRN Reason: Port access or dressing change Sodium Chloride () 10 - 40 ml IV UD PRN PRN Reason: R Port Saline Flush Sodium Chloride (0.9% Nacl (Sterile) Posiflush) 10 - 40 ml IV UD PRN PRN Reason: Port access or dressing change Assessment/Plan All Active Problems Acute renal failure (Acute) Sepsis (Acute) Septic shock (Acute) UTI (urinary tract infection) (Acute) Pneumonia (Acute) KELLEE (acute kidney injury) (Acute) Hypokalemia (Acute) Encephalopathy acute (Acute) 1. KELLEE in solitary kidney s/p right nephrectomy for metastatic renal cell cancer. Creatinine 2.44 on admit progressed to 2.58 today. Baseline creatinine 0.5 on 02/02. Currently nonoliguric. Check Fena. No hx iv contrast, NSAIDs, suspect ATN unclear etiology. Hx cardiomyopathy LVEF 15% due to takotsubo last admit. Continue to monitor renal fxn. Avoid nephrotoxins. No urgent indication for dialysis. 2. Neurogenic bladder with chronic indwelling richardson. Check urine c/s 3. hx spastic Paralysis 4. Tremors suspect due to anxiety. Confusion improved. 5. Metastatic renal cell cancer managed by oncology.
[2019-02-09] MEDS: APIXABAN 5 MG TABLET 10 MG PO (09:59)
[2019-02-09] MEDS: predniSONE 5 MG Tablet PO (10:00)
[2019-02-09] MEDS: LORazepam 0.5 MG Tablet PO (10:01)
[2019-02-09 10:41] LABS: Urine Sodium 74 mmol/L (Not Establ.)
--- NOTE | 2019-02-09 15:17 | CHAPLAIN ---
Type of Pastoral Visit _x__ Initial Visit ___ Follow-up Visit ___ On-call Visit ___ General Patient Visit ___ Spiritual Assessment ___ Family Conference ___ Bereavement ___ Rapid Response ___ Code Blue ___ Other (describe below) Pastoral Care Referral From ___ Patient _x__ Family _x__ Nurse ___ Physician ___ Electric Motor Repairman ___ Lower School Spanish Teacher ___ Other (describe below) Sacrament/Intervention _x__ Active listening ___ Anointing ___ Mormonism ___ Bereavement ___ Communion _x__ Etta exploration ___ _x__ Life review _x__ Prayer ___ Reconciliation ___ Sacrament of Sick _x__ Supportive presence ___ Wedding ___ Other (describe below) Pastoral Comments The patient and spouse are together in the room; pt is very talkative and open about her fears, spiritual doubts, and concerns with her possibility of ; pt also presents as a person of etta and seeks spiritual support; pt speaks of not having a personal ldr rn that has been attentive to her during this time; pt would benefit from further care both emotionally and spiritually
== END 2019-02-09 19:14 | disposition short-term general hospital (02) | DRG 70 ==
LOC: ED 18:13 → PCU 21:34 → ICU 02-08 23:17 → PCU 02-10 08:31
PROVIDERS: Physician Assistant; Admitting Provider Family Medicine; Emergency Provider Emergency Medicine; Family Provider Family Medicine; PCP Family Medicine; Referring Provider Family Medicine; Visit Provider Family Medicine
DX: G93.40 Encephalopathy, unspecified (principal); I21.4 Non-ST elevation (NSTEMI) myocardial infarction; I26.99 Other pulmonary embolism without acute cor pulmonale; N17.9 Acute kidney failure, unspecified; C79.51 Secondary malignant neoplasm of bone; C64.1 Malignant neoplasm of right kidney, except renal pelvis; N31.9 Neuromuscular dysfunction of bladder, unspecified; G82.20 Paraplegia, unspecified; M62.838 Other muscle spasm; R25.1 Tremor, unspecified; G89.4 Chronic pain syndrome; Z90.5 Acquired absence of kidney; Z87.891 Personal history of nicotine dependence; Z79.01 Long term (current) use of anticoagulants; Z79.899 Other long term (current) drug therapy
CPT/HCPCS: 36415; 36600; 51702; 70450; 70551; 71045; 80048; 80053; 81001; 82140; 82570; 82803; 82962; 83605; 83735; 84100; 84300; 84484; 85025; 85610; 85730; 87040; 87086; 87449; 87633; 93005; 97802; 99283; J7030; A4216

== ENCOUNTER → 2019-09-15 | Outpatient (CLI) | payer MEDICARE, SELFPAY ==
[2019-08-19 11:13] VITALS: BMI 25.0
--- NOTE | 2019-09-15 10:51 | ECHOCSONC_ITS ---
Version 3 Reason For Study: CHF Procedure This was a 2D Doppler, Color Flow transthoracic echocardiogram. Myocardial strain analysis was performed in this exam to aid in the assessment of cardiac function. Contrast injection was performed. Exam performed in department. Left Ventricle Normal LV size. The estimated ejection fraction is 50 %. Left ventricular systolic function is lower limits of normal. Stage 1 diastolic dysfunction. No regional wall motion abnormalities noted. Right Ventricle Normal RV size. Normal systolic function. Atria Normal left atrium. Normal right atrium. Mitral Valve Normal mitral valve. Mild (1+) eccentric mitral valve insufficiency. Tricuspid Valve Normal tricuspid valve. Mild tricuspid valve insufficiency. Pulmonary artery systolic pressure is 30 mmHg. Aortic Valve The aortic valve is not well visualized. Pulmonic Valve Normal pulmonic valve. Great Vessels Normal aortic root. The pulmonary artery is normal size. Normal inferior vena cava. Pericardium/Pleural No pericardial effusion. Medication Diluted definity 3ml given slow IV push to enhance endocardial definition. MMode/2D Measurements & Calculations LVIDd: 4.3 cm IVSd: 1.1 cm Ao root diam: 2.7 cm LVIDs: 3.1 cm LVPWd: 1.0 cm RVDd: 3.2 cm FS: 28.2 % LAV(MOD-bp): 27.9 ml LVAd ap4: 31.0 cm2 SV(MOD-sp4): 50.7 ml LAV(MOD-bp) Indexed: 15.3 ml/m2 EDV(MOD-sp4): 90.9 ml LAV(MOD-sp2): 21.7 ml EDV(sp4-el): 95.0 ml LAV(MOD-sp4): 24.8 ml LVAs ap4: 18.2 cm2 ESV(MOD-sp4): 40.2 ml ESV(sp4-el): 39.3 ml EF(MOD-sp4): 55.8 % EF(sp4-el): 58.6 % SV(sp4-el): 55.6 ml LA A4 area: 12.7 cm2 LA dimension(2D): 3.4 cm RA A4 area: 10.6 cm2 Doppler Measurements & Calculations MV E max alek: 57.8 cm/sec Lat Peak E' Alek: 11.5 cm/sec Med Peak E' Alek: 6.8 cm/sec MV A max alek: 87.9 cm/sec E/E' lat: 5.0 E/E' med: 8.5 MV E/A: 0.66 Ao V2 max: 118.6 cm/sec LV V1 max: 103.8 cm/sec PA V2 max: 96.4 cm/sec Ao max P.6 mmHg LV V1 max P.3 mmHg Ao V2 mean: 82.7 cm/sec Ao mean P.0 mmHg Ao V2 VTI: 21.0 cm TR max alek: 249.8 cm/sec TR max P.0 mmHg Interpretation Summary Normal LV size. The estimated ejection fraction is 50 %. Left ventricular systolic function is lower limits of normal. Stage 1 diastolic dysfunction. The global longitudinal strain = -17.8 % (normal). The study was technically difficult. Contrast injection was performed. Compared to previous study, the left ventricular systolic function has improved.. Ordering Physician: Brad Zamora Referring Physician: Aaron Chand Performed By: Monika Bartlett, ARI, RVT
== END | disposition home or self-care (01) ==
LOC: CVS 10:51
PROVIDERS: PCP Family Medicine; Referring Provider Internal Medicine Cardiovascular Disease; Visit Provider Internal Medicine Cardiovascular Disease
DX: I34.0 Nonrheumatic mitral (valve) insufficiency (principal)
CPT/HCPCS: 93306; 93356; Q9957; A4216; C8929

== ENCOUNTER 2020-01-27 22:45 | Emergency (ER) | payer MEDICARE, SELFPAY ==
[2019-08-19 11:13] VITALS: BMI 25.0
[2020-01-27 22:46] VITALS: BP 152/100; PULSE 80; RESP 16; TEMP 35.8; O2SAT 98; BMI 23.8
--- NOTE | 2020-01-27 23:11 | ED.VIS.GEN ---
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 She has an indwelling Blount catheter and a leg bag. She states that today she noted blood in her urine. She states that she does get frequent UTIs but she does not usually have blood in her urine. She is on Eliquis for history of PE. She denies any trauma. She denies fever, chills, nausea, vomiting. She states she feels otherwise fine. She is currently on chemotherapy but states that they lowered the dose. Patient also states she has a single kidney as she has had the right kidney removed. - Past Medical History (1) Nonobstructive atherosclerosis of coronary artery Status: Chronic (2) Non-ischemic cardiomyopathy Status: Chronic (3) Right pulmonary embolus Status: Chronic (4) History of non-ST elevation myocardial infarction (NSTEMI) Status: Resolved (5) Metastatic renal cell carcinoma to bone Status: Chronic Past Medical History - Allergies and Home Meds Allergies/Adverse Reactions: Allergies No Known Allergies Allergy (Verified 01/27/20 22:48) Primary Care Physician: Aaron Chand MD [Primary Care Provider] - Past Medical History: - - Reviewed and problem list Surgical History: - - right nephrectomy, Neck surgery with hardware, lumbar surgery with hardware with corrective follow-up surgery, left lower extremity femur surgery with hardware placement secondary to cancerous lesions, cholecystectomy, tonsillectomy, port placement. Right nephrectomy Lives: Spouse/ Significant Other Smoking Status: Former smoker Alcohol: None Drugs: None - Family History Maternal Family History: Family History (Last Reviewed 08/19/19 @ 11:[address] Brad Zamora MD) Mother Lung cancer Father Lung cancer Family History: Reports: - - Patient with maternal family history of lung cancer, tobacco use history. Paternal Family History: Family History (Last Reviewed 08/19/19 @ 11:[address] Brad Zamora MD) Mother Lung cancer Father Lung cancer Family History: Reports: - - Patient with a paternal family history of lung cancer, tobacco use history concurrently. Review of Systems General: Denies: Chills, Fever, Malaise, Subjective, Sweats, Weight loss, - Eyes: Denies: Visual changes - bilaterally, Diplopia ENT: Denies: Rhinorrhea, Sore throat Cardiovascular: Denies: Chest pain, Palpitations Respiratory: Denies: Dyspnea, Cough, Dyspnea on exertion Gastrointestinal: Denies: Abdominal pain, Nausea, Vomiting, Diarrhea, Melena, Hematochezia Genitourinary: Reports: Hematuria Musculoskeletal: Denies: Back pain, Extremity Pain Skin: Denies: Rash, Wounds Neurological: Reports: Headache - Mild. Denies: Weakness, Numbness Physical Exam Vital Signs/Narrative: Vital Signs Temp Pulse Resp BP Pulse Ox 01/27/20 22:46 96.5 F L 80 16 152/100 H 98 General: Well nourished, No Acute Distress Head: Normocephalic, Atraumatic Eyes: Perrl, EOMI ENT: Moist mucous membranes, No rhinorrhea Cardiovascular: Regular rate, Regular rhythm Respiratory: No distress, CTA bilaterally Abdomen: Soft, Nondistended, - - Patient has no sensation over the lower abdomen from the mid abdomen down. Extremities: Nontender, No edema Skin: Normal color, No rash Neurological: Alert, Oriented x3 Psychological: Normal affect, Normal Mood Diagnostic/Tx/Re-eval Clinical Impression(s) from Imaging Studies Abdomen/Pelvis CT 01/28/20 23:21 IMPRESSION: No acute abdominopelvic abnormality. Large amount of colonic stool. Additional findings above. Individualized dose optimization techniques were used for this CT. at 0140 Reported and signed by: Kathleen Cottrell MD Electronically Signed: Kathleen Cottrell MD at 1:40 EST Tel , Service support , Laboratory Data 01/28/20 01/28/20 01/28/20 00:03 00:03 00:14 WBC 6.5 RBC 4.78 Hgb 11.7 L Hct 39.5 MCV 82.6 MCH 24.5 L MCHC 29.6 L RDW Std Deviation 81.5 H RDW Coeff of Deborah 27.5 H Plt Count 300 MPV 8.7 Immature Gran % (Auto) 0.600 Neut % (Auto) 55.7 Lymph % (Auto) 34.0 Bond % (Auto) 5.7 Eos % (Auto) 3.7 Baso % (Auto) 0.3 Absolute Neuts (auto) 3.6 Absolute Lymphs (auto) 2.20 Nucleated RBC % 0 Platelet Estimate ADEQUATE Hypochromasia 1+ Anisocytosis 1+ Sodium 141 Potassium 3.9 Chloride 108 H Carbon Dioxide 30.0 Anion Gap 3 L BUN 11 Creatinine 0.53 L Estim Creat Clear Calc 110.95 Est GFR (MDRD) Af Amer 154 Est GFR (MDRD) Non-Af 128 BUN/Creatinine Ratio 20.9 H Glucose 88 Calcium 8.3 L Urine Color Brown Urine Clarity Turbid Urine pH 5.0 Ur Specific [place] 1.015 Urine Protein 100 H Urine Glucose (UA) Normal Urine Ketones 5 H Urine Occult Blood 250 H Urine Nitrite Positive H Urine Bilirubin Negative Urine Urobilinogen 1 H Ur Leukocyte Esterase 100 H Urine RBC > 100 SEEN Urine WBC 25-50 SEEN Ur Squamous Epith Cells 0 SEEN Urine Bacteria 0 SEEN Urine Mucus 0 SEEN - Medical Decision Making 4-year-old female with history of renal cell carcinoma currently on lower dose chemotherapy presenting with hematuria. She is also concerned she has a UTI. She does not have any abdominal pain but states she cannot feel her lower abdomen either way secondary to paraplegia. Her Blount catheter/bladder were flushed and irrigated till pink however did not become clear. Urinalysis shows UTI. She was started on Keflex in the ED. Urine was sent for culture. She is given a prescription for Keflex for home. CT of the abdomen pelvis without contrast was performed and there is no acute abnormalities identified. I did consider using IV contrast but given the patient has only one kidney I felt it was necessary to be conservative. Patient will follow up with Dr. Valiente tomorrow. He is given strict return precautions. Impression: 1. UTI 2. Hematuria ED Disposition - Plan for ED Patient: Disposition: Home or Assisted Living Instructions: Understanding Urinary Tract Infections (UTIs), ED Hematuria Prescriptions: Cephalexin [Keflex] 500 mg PO Q12 #14 cap Transmission Status: Received by [id number] Referrals: Aaron Chand MD [Primary Care Provider] -
[2020-01-28 00:24] LABS: Bacteria 0 SEEN /hpf (None Seen); Mucous, Urine 0 SEEN /hpf (<or=2+); Squamous Epithelial Cells - UA 0 SEEN /hpf (5-10)
[2020-01-28 00:25] LABS: Color, Urine Brown (Yellow); Glucose, Dipstick Normal (Normal); Ketone-Dipstick 5 mg/dl (Negative); Leukocyte Esterase-Dipstick 100 /ul (Negative); Nitrite-Dipstick Positive (Negative); Occult Blood-Urine 250 /ul (Negative); Protein-Dipstick 100 mg/dl (Negative); Specific Gravity, Urine 1.015 (1.002-1.030); Urine Bilirubin Dipstick Negative (Negative); Urine Clarity Turbid (Clear); Urine Urobilinogen 1 mg/dl (Normal)
[2020-01-28 00:29] LABS: Absolute Neutrophil Count 3.6 X10^3/uL (2.0-7.7); Basophil# 0.02 X10^3/uL; Basophil% 0.3 % (0-1); Eosinophil# 0.24 X10^3/uL; Eosinophils% 3.7 % (0-5); Hematocrit 39.5 % (37-47); Hemoglobin 11.7 g/dL (12.0-15.0); Mean Corp Hgb Conc 29.6 g/dL (32-36); Mean Corpuscular Hgb 24.5 pg (27.0-32.0); Mean Corpuscular Volume 82.6 fL (81-99); Mean Platelet Vol. 8.7 fl (6.2-12.0); Monocyte# 0.37 X10^3/uL; Monocyte% 5.7 % (0-10); NRBC Flagged by Analyzer 0 % (0-5); Neutrophil # 3.61 X10^3/uL (2.7-7.7); Neutrophil % 55.7 % (47-70); POSITIVE MORPHOLOGY YES; Platelet Count 300 K/mm3 (150-450); RBC Distribution Width CV 27.5 % (11.6-14.6); RBC Distribution Width SD 81.5 fl (35.1-43.9); Red Blood Count 4.78 M/mm3 (4.2-5.4); White Blood Count 6.5 K/mm3 (4.4-11.0)
[2020-01-28 00:42] LABS: Anion Gap 3 (5-15); BUN 11 mg/dL (7-18); BUN/Creat Ratio 20.9 RATIO (10-20); Calcium,Total 8.3 mg/dL (8.5-10.1); Chloride 108 mmol/L (98-107); Creatinine, Serum 0.53 mg/dL (0.55-1.02); EST Glomerular Filtration Rate 128 mL/min (>60); Est Glom Filt Rate - Afr Amer 154 mL/min (>60); Estimated Creatinine Clearance 110.95 ml/min; Glucose 88 mg/dL (74-106); Potassium 3.9 mmol/L (3.5-5.1); Sodium Level 141 mmol/L (136-145)
[2020-01-28 01:05] LABS: Differential Indicated SCAN CRITERIA MET
[2020-01-28 01:19] LABS: White Blood Cells 25-50 SEEN /hpf (0-5)
[2020-01-28 01:20] LABS: Red Blood Cells-Urine > 100 SEEN /hpf (0-5)
[2020-01-28 01:53] LABS: Anisocytosis 1+; Hypochromasia 1+; Platelet Estimate ADEQUATE (ADEQ)
[2020-01-28 02:08] VITALS: RESP 16
[2020-01-28] MEDS: Cephalexin 250 MG Capsule 500 MG PO (02:08)
[2020-01-28 02:58] VITALS: BP 142/76; PULSE 80; RESP 18; O2SAT 96
--- NOTE | 2020-01-28 23:21 | CT_ITS ---
HISTORY: BLOODY URINE CATH, HX KIDNEY CA WITH RIGHT NEPHRECTOMY, BONE METS WITH SPINAL HARDWARE, PARAPLEGIC FROM SPINAL INJURY DUE TO HARDWARE, RIGHT FEMUR RODS, PORT, GB ADDITIONAL HISTORY: None provided. EXAMINATION/TECHNIQUE: CT Abdomen And Pelvis W/O Contrast Injection Enteric contrast was not given. Number of images including paperwork: 533. A radiation dose optimization technique was used for this scan. COMPARISON: No previous abdominal CT. CT chest 01/28/2019 FINDINGS: Evaluation of the abdominopelvic organs is limited in the absence of contrast. LOWER THORAX: No consolidation or pleural effusion. Minimal linear basilar subsegmental atelectasis versus scarring. Mild left hemidiaphragm elevation. Vascular catheter tip near the cavoatrial junction. LIVER: No concerning focal lesion. GALLBLADDER: Cholecystectomy. BILE DUCTS: No significant biliary dilatation. SPLEEN: Unremarkable. PANCREAS: Unremarkable. ADRENAL GLANDS: Unremarkable. KIDNEYS/URETERS: Unremarkable left kidney. Absent right kidney. BOWEL: No bowel obstruction. No significant bowel wall thickening. No localized inflammation. Large amount of colonic stool. APPENDIX: No evidence of appendicitis. FREE FLUID: No significant free fluid. FREE AIR: None. LYMPH NODES: No pathologic appearing adenopathy. PERITONEUM, RETROPERITONEUM AND MESENTERY: Otherwise unremarkable. VASCULATURE: Unremarkable as imaged. ABDOMINAL WALL: Fat-containing bilateral inguinal hernias. PELVIS: Bladder decompressed by Blount catheter. OSSEOUS AND SOFT TISSUE STRUCTURES: No acute skeletal findings. Postoperative changes of the left hip. Deformity of the lower thoracic spine with postoperative changes of the thoracolumbar junction appears similar. CT/Abdomen/Pelvis without Cont IMPRESSION: No acute abdominopelvic abnormality. Large amount of colonic stool. Additional findings above. Individualized dose optimization techniques were used for this CT. at 0140 Reported and signed by: Kathleen Cottrell MD Electronically Signed: Kathleen Cottrell MD at 1:40 EST Tel , Service support ,
== END 2020-01-28 02:59 | disposition home or self-care (01) ==
PROVIDERS: Emergency Provider Student in an Organized Health Care Education/Training Program; PCP Family Medicine
DX: N39.0 Urinary tract infection, site not specified (principal); R31.9 Hematuria, unspecified; Z86.711 Personal history of pulmonary embolism; Z85.528 Personal history of other malignant neoplasm of kidney; Z79.01 Long term (current) use of anticoagulants; Z87.891 Personal history of nicotine dependence
CPT/HCPCS: 36591; 74176; 80048; 81001; 85025; 87077; 87086; 87088; 87186; 99284; A4216

== ENCOUNTER 2020-07-11 13:22 | Inpatient (IN) | payer MEDICARE, SELFPAY ==
[2020-07-11] VITALS (12 sets, daily range): BP systolic 87–110; BP diastolic 44–69; PULSE 92–119; RESP 15–24; TEMP 36.8–38.3; O2SAT 93–98; BMI 23.8; BMI 25.8
--- NOTE | 2020-07-11 13:45 | RAD_ITS ---
STUDY: X-RAY - LEFT FOOT CLINICAL: Female, 54 years old. Wound TECHNIQUE: 3 view(s) of the foot. COMPARISON: None. FINDINGS: Normal talus, calcaneus, and tarsal bones. Normal visualized subtalar, talonavicular, calcaneocuboid, tarsal and tarsometatarsal articulations. Multiple areas of patchy osteoporosis involving the tarsal bones and proximal aspects of the metatarsals as well as the metatarsophalangeal joints. This is suggestive of reflex sympathetic dystrophy. Normal metatarsophalangeal joint of the great toe. Normal tibial and fibular sesamoid bones. Normal interphalangeal joint of the great toe. Normal phalanges of the great toe. Normal second through fifth metatarsophalangeal joints. Normal interphalangeal joints and phalanges of the lesser toes. Soft tissue swelling. RAD/Foot min 3 Views IMPRESSION: Multiple areas of the osteoporosis involving the tarsal bones as well as the metatarsal and metatarsophalangeal joints with soft tissue swelling. This may be related to reflex sympathetic dystrophy. Electronically Signed: Tyron Cheung MD at 14:43 EDT , Service support ,
--- NOTE | 2020-07-11 13:45 | EKG12_ITS ---
Test Reason : FEVER Blood Pressure : / mmHG Vent. Rate : 115 BPM Atrial Rate : 115 BPM P-R Int : 112 ms QRS Dur : 068 ms QT Int : 366 ms P-R-T Axes : 041 -18 073 degrees QTc Int : 506 ms Sinus tachycardia with occasional Premature ventricular complexes Septal infarct , age undetermined ST & T wave abnormality, consider lateral ischemia Abnormal ECG Confirmed by COLETTE ROWLAND, VALENTINA ([id number]), news video editor TENISHA HEIN ([id number]) on 07/16/2020 12:29:26 PM Referred By: LEVI Confirmed By:VALENTINA ALVARENGA MD
--- NOTE | 2020-07-11 13:47 | EX.ED.DYSGE1 ---
HPI History of Present Illness Chief Complaint: Fever Narrative Narrative: Patient presents with fever. This started last night and has noticed as high as 101 Fahrenheit. She has a complicated past medical history including renal cell carcinoma with metastases with subsequent spine decompression and tumor debulking and paraplegia. She is wheelchair-bound. She has a Blount catheter. She also has a chronic decub ulcers as well as a left greater toe ulceration. She denies any cough or congestion. She has no shortness of breath. She has no rash. She has chronic abdominal pain from sitting but it is no different than normal. No diarrhea or constipation. [facility] Medical History (Updated 07/11/20 @ 15:[address] Aguilar Fajardo MD) Acute renal failure KELLEE (acute kidney injury) Chronic pain syndrome Encephalopathy acute History of non-ST elevation myocardial infarction (NSTEMI) (01/28/19) Immunocompromised state Metastatic renal cell carcinoma to bone Non-ischemic cardiomyopathy Nonobstructive atherosclerosis of coronary artery Paraplegia following spinal cord injury Right pulmonary embolus (01/28/19) Sepsis Septic shock (01/29/19) Single kidney Takotsubo syndrome Home Medications ondansetron HCl 8 mg PO Q8H PRN PRN 12/12/18 [History Last Taken Unknown] temazepam 30 mg PO QHS 12/12/18 [History Last Taken 02/06/19] apixaban 5 mg PO BID 02/07/19 [History Last Taken 02/07/19] acyclovir 400 mg tablet 400 mg PO DAILY tab 08/19/19 [History Last Taken Unknown] clindamycin phosphate 1 % lotion TOPICAL 08/19/19 [History Last Taken Unknown] furosemide 20 mg tablet 20 mg PO BID tab 08/19/19 [History Last Taken Unknown] methadone 5 mg tablet 10 mg PO DAILY tab 08/19/19 [History Last Taken Unknown] oxycodone 10 mg tablet PO 08/19/19 [History Last Taken Unknown] potassium chloride 10 mEq tablet,extended release 20 meq PO BID tab 08/19/19 [History Last Taken Unknown] prednisone 10 mg tablet 10 mg PO DAILY tab 08/19/19 [History Last Taken Unknown] baclofen 5 mg tablet mg PO TID tab 11/16/19 [History Last Taken Unknown] gabapentin 100 mg capsule 100 mg PO DAILY 11/16/19 [History Last Taken Unknown] gabapentin 300 mg capsule 300 mg PO QHS cap 11/16/19 [History Last Taken Unknown] levothyroxine 50 mcg tablet 50 mcg PO DAILY tab 11/16/19 [History Last Taken Unknown] cephalexin 500 mg PO Q12 #14 cap 01/28/20 [Rx Last Taken Unknown] carvedilol 3.125 mg tablet 3.125 mg PO BID #180 tab 03/12/20 [Rx Last Taken Unknown] Allergy/AdvReac Type Severity Reaction Status Date / Time No Known Allergies Allergy Verified 07/11/20 13:28 Family History Mother Lung cancer Father Lung cancer Surgical History History of cholecystectomy History of left heart catheterization (01/31/19) History of right nephrectomy (03/30/13) History of spinal surgery (2017) Social History (Updated 11/16/19 @ 15:[address] Brad Zamora MD) Smoking Status: Former smoker ROS ROS ED ROS Narrative Past medical history: Includes paraplegia, history of coronary artery disease, cardiomyopathy, history of PE, history of NSTEMI, history of metastatic renal cell carcinoma with bone involvement Medications: Reviewed Social history: Lives at home with her Review of systems: All systems negative except as indicated General: Fever as in HPI Eyes: No visual changes ENT: No upper airway congestion, normal voice Neck: No neck pain Cardiovascular: No chest pain Respiratory: No shortness of breath or cough Gastrointestinal: Chronic abdominal pain, this has not changed, no nausea vomiting diarrhea or constipation Genitourinary: Normal urine output she tells me there is no change in color. Musculoskeletal: Chronic lower extremity edema, wounds as above Skin: No other rash Neurological: No memory loss, confusion or any new focal weakness Psych: No recent behavioral changes Hematologic: No easy bleeding or easy bruising EXAM Physical Exam Narrative Exam Narrative: Physical exam General: Patient appears relatively comfortable. She is in a wheelchair at first. Head: Normocephalic, Atraumatic Eyes: Conjunctiva not pale ENT: Moist mucous membranes. No congestion or rhinorrhea Neck: Supple, Nontender, No lymphadenopathy Cardiovascular: Regular rate, Regular rhythm Respiratory: No distress, CTA bilaterally Abdomen: Soft, when I palpate her abdomen it is nontender. No mass. Back: Nontender, Normal Inspection. Negative for: CVA tenderness : Normal external genitalia. She has 2 decub ulcers no obvious cellulitis however the ulcers are quite deep. Extremities: Edema which is symmetric bilaterally. Left great toe as a dorsal small wound on it no ulcerative lesion. Skin: No other rash Neurological: Alert, Normal Strength of upper extremities, no strength or sensation in the lower extremities Psychological: Normal affect Const Vital Signs: 07/11/20 13:22 07/11/20 13:39 07/11/20 14:10 Temperature 100.9 F H Temperature Source Temporal Pulse Rate 119 H 113 H Respiratory Rate 15 18 Respiratory Effort Normal Non-Labored Respiratory Pattern Normal Blood Pressure 110/67 Blood Pressure Mean 81 Pulse Ox 93 98 Oxygen Delivery Method Room Air Room Air 07/11/20 14:39 07/11/20 15:03 Temperature 99.9 F H Temperature Source Oral Pulse Rate 104 H Respiratory Rate 22 H Respiratory Effort Respiratory Pattern Blood Pressure 108/61 Blood Pressure Mean 76 Pulse Ox 96 Oxygen Delivery Method Room Air MDM MDM MDM Narrative Medical decision making narrative: Patient has leukocytosis, ESR and CRP are quite elevated. I do not find another focus of infection other than the soft tissue decub ulcers. I started Vanco and Zosyn I will admit the patient. Lab Data Labs: Laboratory Results - last 24 hr 07/11/20 07/11/20 07/11/20 14:14 14:14 14:14 WBC 12.9 H RBC 3.36 L Hgb 9.3 L Hct 31.1 L MCV 92.6 MCH 27.7 MCHC 29.9 L RDW Std Deviation 59.9 H RDW Coeff of Deborah 17.6 H Plt Count 545 H MPV 8.5 Immature Gran % (Auto) 0.900 Neut % (Auto) 86.7 H Lymph % (Auto) 4.9 L [place] % (Auto) 5.0 Eos % (Auto) 2.3 Baso % (Auto) 0.2 Absolute Neuts (auto) 11.2 H Absolute Lymphs (auto) 0.63 L Nucleated RBC % 0 ESR 110 H PT 25.1 H INR 2.4 APTT 67.3 H Sodium 138 Potassium 4.3 Chloride 106 Carbon Dioxide 29.0 Anion Gap 3 L BUN 12 Creatinine 0.51 L Estim Creat Clear Calc 115.31 Est GFR (MDRD) Af Amer 159 Est GFR (MDRD) Non-Af 131 BUN/Creatinine Ratio 23.4 H Glucose 93 Lactic Acid Calcium 8.7 Total Bilirubin 0.40 AST 7 L ALT 11 L Alkaline Phosphatase 132 H C-React Prot Ext Range 243.00 H Total Protein 6.5 Albumin 2.3 L Globulin 4.2 Albumin/Globulin Ratio 0.5 L Urine Color Urine Clarity Urine pH Ur Specific [place] Urine Protein Urine Glucose (UA) Urine Ketones Urine Occult Blood Urine Nitrite Urine Bilirubin Urine Urobilinogen Ur Leukocyte Esterase Urine RBC Urine WBC Ur Squamous Epith Cells Urine Bacteria Urine Mucus 07/11/20 07/11/20 14:14 14:35 WBC RBC Hgb Hct MCV MCH MCHC RDW Std Deviation RDW Coeff of Deborah Plt Count MPV Immature Gran % (Auto) Neut % (Auto) Lymph % (Auto) [place] % (Auto) Eos % (Auto) Baso % (Auto) Absolute Neuts (auto) Absolute Lymphs (auto) Nucleated RBC % ESR PT INR APTT Sodium Potassium Chloride Carbon Dioxide Anion Gap BUN Creatinine Estim Creat Clear Calc Est GFR (MDRD) Af Amer Est GFR (MDRD) Non-Af BUN/Creatinine Ratio Glucose Lactic Acid 0.9 Calcium Total Bilirubin AST ALT Alkaline Phosphatase C-React Prot Ext Range Total Protein Albumin Globulin Albumin/Globulin Ratio Urine Color Yellow Urine Clarity Sl. Cloudy Urine pH 6.0 Ur Specific [place] 1.010 Urine Protein Negative Urine Glucose (UA) Normal Urine Ketones Negative Urine Occult Blood Negative Urine Nitrite Negative Urine Bilirubin Negative Urine Urobilinogen Normal Ur Leukocyte Esterase 25 H Urine RBC 0 SEEN Urine WBC 0-5 SEEN Ur Squamous Epith Cells 0-5 SEEN Urine Bacteria 0 SEEN Urine Mucus 0 SEEN Radiography Diagnostic Testing: Radiology Impression Foot X-Ray 07/11/20 13:45 IMPRESSION: Multiple areas of the osteoporosis involving the tarsal bones as well as the metatarsal and metatarsophalangeal joints with soft tissue swelling. This may be related to reflex sympathetic dystrophy. Electronically Signed: Tyron Cheung MD at 14:43 EDT , Service support , Chest X-Ray 07/11/20 14:20 IMPRESSION: Focal increased linear markings at the left lung base suggestive of atelectasis. Electronically Signed: Tyron Cheung MD at 14:42 EDT , Service support , Chest x-ray interpreted by ER doctor and radiologist does not show any significant abnormality Discharge Plan Triage Chief Complaint: Fever ED Provider: Aguilar Fajardo Dx/Rx/DC Orders Clinical Impression: Decubital ulcer, Soft tissue infection, Fever Prescriptions: No Action acyclovir 400 mg tablet 400 mg PO DAILY RF: 0 methadone 5 mg tablet 10 mg PO DAILY RF: 0 prednisone 10 mg tablet 10 mg PO DAILY RF: 0 oxycodone 10 mg tablet PO RF: 0 clindamycin phosphate 1 % lotion TOPICAL RF: 0 potassium chloride 10 mEq tablet extended release 20 meq PO BID RF: 0 gabapentin 100 mg capsule 100 mg PO DAILY RF: 0 baclofen 5 mg tablet PO TID RF: 0 levothyroxine 50 mcg tablet 50 mcg PO DAILY RF: 0 ondansetron HCl 8 MG tablet 8 mg PO Q8H PRN PRN (Reason: Nausea) RF: 0 temazepam 30 MG capsule 30 mg PO QHS RF: 0 furosemide 20 mg tablet 20 mg PO BID RF: 0 gabapentin 300 mg capsule 300 mg PO QHS RF: 0 apixaban 5 MG tablet 5 mg PO BID RF: 0 cephalexin 500 MG capsule 500 mg PO Q12 Qty: 14 RF: 0 carvedilol [Coreg] 3.125 mg tablet 3.125 mg PO BID Qty: 180 RF: 3 Primary Care Provider: Aaron Chand Referrals: Aaron Chand MD [Primary Care Provider] - Disposition Disposition: Acute Care Hospital [facility]
--- NOTE | 2020-07-11 14:20 | RAD_ITS ---
STUDY: X-RAY CHEST REASON FOR EXAM: Female, 54 years old. Fever TECHNIQUE: Single AP portable view of the chest. COMPARISON: Comparison is made with prior study dated 02/07/2019. FINDINGS: A left-sided portacatheter is seen with the tip at the junction of the superior vena cava and right atrium. EKG electrodes are seen. Focal linear marking at the left lung base suggestive of underlying atelectasis. No focal infiltrate is seen. There is no demonstrated pleural abnormality. Normal size heart. Normal mediastinum and john. Normal visualized pulmonary arteries. Normal visualized aortic arch and descending thoracic aorta. Multilevel intrapedicular screw and merly fixation of the thoracic spine. Normal visualized ribs, clavicles, and shoulders. There is no demonstrated abnormality of the visualized soft tissue structures of the upper abdomen. RAD/Chest 1 View (Portable) IMPRESSION: Focal increased linear markings at the left lung base suggestive of atelectasis. Electronically Signed: Tyron Cheung MD at 14:42 EDT , Service support ,
[2020-07-11 14:25] LABS: Erythrocyte Sedimentation Rate 110 mm/hr (0-30)
[2020-07-11 14:26] LABS: Absolute Lymphocyte Count 0.63 X10^3/uL (0.83-4.51); Absolute Neutrophil Count 11.2 X10^3/uL (2.0-7.7); Basophil# 0.03 X10^3/uL; Basophil% 0.2 % (0-1); Eosinophils% 2.3 % (0-5); Hematocrit 31.1 % (37-47); Hemoglobin 9.3 g/dL (12.0-15.0); Lymphocyte # 0.63 X10^3/ul (0.83-4.51); Lymphocyte % 4.9 % (19-41); Mean Corp Hgb Conc 29.9 g/dL (32-36); Mean Corpuscular Hgb 27.7 pg (27.0-32.0); Mean Corpuscular Volume 92.6 fL (81-99); Mean Platelet Vol. 8.5 fl (6.2-12.0); Monocyte# 0.65 X10^3/uL; NRBC Flagged by Analyzer 0 % (0-5); Neutrophil # 11.21 X10^3/uL (2.7-7.7); Neutrophil % 86.7 % (47-70); Platelet Count 545 K/mm3 (150-450); RBC Distribution Width CV 17.6 % (11.6-14.6); RBC Distribution Width SD 59.9 fl (35.1-43.9); Red Blood Count 3.36 M/mm3 (4.2-5.4); White Blood Count 12.9 K/mm3 (4.4-11.0)
[2020-07-11 14:37] LABS: International Normalized Ratio 2.4; Prothrombin Time (Protime)PT. 25.1 SECONDS (11.7-14.9)
[2020-07-11 14:39] LABS: Bacteria 0 SEEN /hpf (None Seen); Mucous, Urine 0 SEEN /hpf (<or=2+); Red Blood Cells-Urine 0 SEEN /hpf (0-5)
[2020-07-11 14:39] LABS: Partial Thromboplast Time 67.3 Seconds (24.1-36.2)
[2020-07-11 14:41] LABS: Color, Urine Yellow (Yellow); Glucose, Dipstick Normal (Normal); Ketone-Dipstick Negative (Negative); Leukocyte Esterase-Dipstick 25 /ul (Negative); Nitrite-Dipstick Negative (Negative); Occult Blood-Urine Negative /ul (Negative); Protein-Dipstick Negative (Negative); Urine Bilirubin Dipstick Negative (Negative); Urine Clarity Sl. Cloudy (Clear); Urine Urobilinogen Normal (Normal)
[2020-07-11 14:46] LABS: ALB/GLOB Ratio 0.5 RATIO (0.9-2.4); AST(SGOT) 7 U/L (15-37); Alanine Aminotransfer ALT/SGPT 11 U/L (13-56); Albumin, Serum 2.3 g/dL (3.2-5.0); Alkaline Phosphatase 132 U/L (45-117); Anion Gap 3 (5-15); BUN 12 mg/dL (7-18); BUN/Creat Ratio 23.4 RATIO (10-20); Calcium,Total 8.7 mg/dL (8.5-10.1); Chloride 106 mmol/L (98-107); Creatinine, Serum 0.51 mg/dL (0.55-1.02); EST Glomerular Filtration Rate 131 mL/min (>60); Est Glom Filt Rate - Afr Amer 159 mL/min (>60); Estimated Creatinine Clearance 115.31 ml/min; Globulin 4.2 g/dL (2.2-4.2); Glucose 93 mg/dL (74-106); Potassium 4.3 mmol/L (3.5-5.1); Protein, Total 6.5 g/dL (6.4-8.2); Sodium Level 138 mmol/L (136-145)
[2020-07-11 14:46] LABS: Squamous Epithelial Cells - UA 0-5 SEEN /hpf (5-10); White Blood Cells 0-5 SEEN /hpf (0-5)
[2020-07-11 14:54] LABS: Lactic Acid 0.9 mmol/L (0.4-1.9)
--- NOTE | 2020-07-11 15:08 | ED.RN ---
PT OK TO TAKE HOME MEDS DUE AT 1400 PER ED
--- NOTE | 2020-07-11 15:33 | NURSING ---
MED SURG ALKAS SEPSIS, DECUB ULCER
--- NOTE | 2020-07-11 16:00 | ED.RN ---
PER PT AND MD, PT HAS DECUB ON COCCYX, NOT VISUALIZED BY THIS RN.
--- NOTE | 2020-07-11 17:29 | HP.PCM.HOS_ITS ---
Documented by User: Fausto WALTERS 07/11/20 17:57 HPI - General General Date of Admission: 07/11/20 HPI Narrative Patient is a 54-year-old female who presented to the ED at [facility] on 07/11/2020 with a chief complaint of fever. Patient reports feeling completely normal, however was notified by her primary care physician when she went in for a visit that she had a fever and that she should report to the emergency room for evaluation. Patient has a chronic decubitus ulcer about the sacrum and on the inferior aspect of the left buttock as well as a left great toe ulceration. Patient is wheelchair-bound and uses a Blount catheter. Past medical history includes renal cell carcinoma with metastasis causing this finding decompression and paraplegia. Denies chest pain shortness of breath, palpitations, chills, cough, congestion, recent illness, problems urinating or defecating, N/V/D. Work-up in the ED demonstrated a mild leukocytosis at 12.9, mild anemia with a hemoglobin of 9.3 and an elevated ESR at 110. C-reactive protein elevated at 243. UA unremarkable. X-ray of the left foot demonstrates osteoporosis of the tarsal, metatarsal and metatarsophalangeal joints with soft tissue swelling, possibly related to reflex sympathetic dystrophy. Chest x-ray demonstrates linear markings at the left lung base possibly suggestive of atelectasis. Patient will be admitted for soft tissue infection. Empiric vancomycin and Zosyn initiated in the ED. [facility] Medical History (Updated 07/11/20 @ 17:53 by Fausto WALTERS) Acute renal failure KELLEE (acute kidney injury) Cancer Chronic pain syndrome Encephalopathy acute History of non-ST elevation myocardial infarction (NSTEMI) (01/28/19) Immunocompromised state Metastatic renal cell carcinoma to bone Non-ischemic cardiomyopathy Non-smoker Nonobstructive atherosclerosis of coronary artery Paraplegia following spinal cord injury Right pulmonary embolus (01/28/19) Sepsis Septic shock (01/29/19) Single kidney Takotsubo syndrome Home Medications temazepam 30 mg PO QHS 12/12/18 [History Last Taken 07/10/20] apixaban 5 mg PO BID 02/07/19 [History Last Taken 07/11/20] acyclovir 400 mg tablet 400 mg PO DAILY tab 08/19/19 [History Last Taken 07/11/20] furosemide 20 mg tablet 20 mg PO BID tab 08/19/19 [History Last Taken 07/11/20] methadone 5 mg tablet 10 mg PO DAILY tab 08/19/19 [History Last Taken 07/10/20] oxycodone 10 mg tablet 10 mg PO TID PRN PRN 08/19/19 [History Last Taken 07/10/20 22:00] potassium chloride 10 mEq tablet,extended release 20 meq PO BID tab 08/19/19 [History Last Taken 07/11/20] baclofen 5 mg tablet 7.5 mg PO BID tab 11/16/19 [History Last Taken 07/11/20] gabapentin 100 mg capsule 100 mg PO BID 11/16/19 [History Last Taken 07/11/20] gabapentin 300 mg capsule 300 mg PO QHS cap 11/16/19 [History Last Taken 07/10/20] carvedilol 3.125 mg tablet 3.125 mg PO BID #180 tab 03/12/20 [Rx Last Taken 07/11/20] cabozantinib [Cabometyx] 20 mg PO DAILY 07/11/20 [History Last Taken 07/11/20] calcium carbonate [Calcium 500] 500 mg PO DAILY 07/11/20 [History Last Taken 07/11/20] cholecalciferol (vitamin D3) 25 mcg PO DAILY 07/11/20 [History Last Taken 07/11/20] levothyroxine [Euthyrox] 75 mcg PO MOTUWETHFRSA 07/11/20 [History Last Taken 07/10/20] levothyroxine [Euthyrox] 150 mcg PO PLASCENCIA 07/11/20 [History Last Taken 07/08/20] melatonin 20 mg PO DAILY 07/11/20 [History Last Taken 07/10/20] methadone 15 mg PO DAILY 07/11/20 [History Last Taken 07/11/20] methenamine hippurate 1 g PO BID 07/11/20 [History Last Taken 07/11/20] omeprazole 40 mg PO DAILY 07/11/20 [History Last Taken 07/11/20] polyethylene glycol 3350 17 g PO QODAY 07/11/20 [History Last Taken 07/09/20] Allergy/AdvReac Type Severity Reaction Status Date / Time No Known Allergies Allergy Verified 07/11/20 13:28 Family History Mother Lung cancer Father Lung cancer Surgical History History of cholecystectomy History of left heart catheterization (01/31/19) History of right nephrectomy (03/30/13) History of spinal surgery (2018) Social History (Updated 11/16/19 @ 15:[address] Brad Zamora MD) Smoking Status: Never smoker ROS Constitutional Constitutional: Denies anorexia, change in weight, chills, fatigue, fever(s), malaise, night sweats, weakness or other Eyes Eyes: Denies blurry vision, change in eye color, change in vision, discharge from eye(s), double vision, erythema, eye pain, loss of vision or other ENT HEENT: Denies abnormal hearing, dysphagia, ear pain, epistaxis, headache(s), hearing loss, nasal congestion, nasal discharge, post nasal drip, sinus pressure, sore throat or other Cardiovascular Cardiovascular: Denies chest pain, claudication, dyspnea on exertion, edema, lightheadedness, orthopnea, palpitations, paroxysmal nocturnal dyspnea, rapid heart rate, syncope or other Respiratory/Chest Respiratory/Chest: Denies cough, dyspnea, excessive phlegm production, hemoptysis, productive cough, shortness of breath at rest, shortness of breath with exertion, wheezing or other Gastrointestinal Gastrointestinal: Denies abdominal pain, coffee ground emesis, constipation, diarrhea, dyspepsia, hematemesis, hematochezia, loose stools, melena, nausea, vomiting or other Genitourinary Genitourinary: Denies burning urination, difficulty urinating, dysuria, hematuria, nocturia, urinary frequency, urinary hesitancy, urinary incontinence, urinary urgency or other Musculoskeletal Musculoskeletal: Denies arthralgias, back pain, joint pain, joint stiffness, joint swelling, myalgias, neck pain or other Neurologic Neurologic: Reports focal weakness and paresthesias; Denies abnormal gait, abnormal speech, confusion, disequilibrium, dizziness, headache(s), numbness, seizure-like activity, seizures, syncope, tingling, tremor(s) or other Psychiatric Psychiatric: Denies anxiety, depression, homicidal ideation, suicidal ideation or other Endocrine Endocrinology: Denies change in body appearance, cold intolerance, excessive sweating, heat intolerance, polydipsia, polyuria or other Hematologic/Lymphatic Hematologic/Lymphatic: Denies anemia, easy bleeding, easy bruising, lymphadenopathy or other Allergic/Immunologic Allergic/Immunologic: Denies rhinitis, hives, eczemia, asthma or other Vital Signs Vital Signs Vital Signs: 07/11/20 13:22 07/11/20 13:39 07/11/20 14:10 Temperature 100.9 F H Temperature Source Temporal Pulse Rate 119 H 113 H Respiratory Rate 15 18 Respiratory Effort Normal Non-Labored Respiratory Depth Respiratory Pattern Normal Blood Pressure 110/67 Blood Pressure Mean 81 Blood Pressure Source Blood Pressure Position Blood Pressure Location Pulse Ox 93 98 Oxygen Delivery Method Room Air Room Air 07/11/20 14:39 07/11/20 15:03 07/11/20 15:45 Temperature 99.9 F H 98.9 F Temperature Source Oral Oral Pulse Rate 104 H 93 Respiratory Rate 22 H 24 H Respiratory Effort Respiratory Depth Respiratory Pattern Blood Pressure 108/61 102/69 Blood Pressure Mean 76 80 Blood Pressure Source Blood Pressure Position Blood Pressure Location Pulse Ox 96 96 Oxygen Delivery Method Room Air Room Air 07/11/20 16:00 07/11/20 16:39 07/11/20 17:00 Temperature 99.1 F Temperature Source Oral Pulse Rate 96 96 Respiratory Rate 19 H 16 Respiratory Effort Normal Non-Labored Respiratory Depth Normal Respiratory Pattern Normal Blood Pressure 99/61 89/60 L Blood Pressure Mean 73 69 Blood Pressure Source Monitor Blood Pressure Position Semi-Fowlers Blood Pressure Location Right Arm Pulse Ox 97 98 Oxygen Delivery Method Room Air Room Air Room Air Physical Exam Const alert, oriented x3 and no apparent distress General Appearance: cooperative HEENT normocephalic, head/scalp atraumatic and hearing grossly normal bilaterally Eyes EOMs intact bilaterally Neck no lymphadenopathy, supple and no JVD Resp normal respiratory effort, no use of accessory muscles and clear to auscultation bilaterally Cardio regular rhythm and no JVD GI normal to inspection, nondistended, normoactive bowel sounds, soft to palpation, non-tender and non-distended Extremity normal to inspection and full ROM Skin Skin Narrative: Open wound about the sacrum and about the 1st MTP of the left foot. Neuro CN's II-XII intact bilaterally Psych affect normal Lab / Micro Data Result Diagrams: 07/11/20 14:14 07/11/20 14:14 Labs: Laboratory Results - last 24 hr 07/11/20 07/11/20 07/11/20 14:14 14:14 14:14 WBC 12.9 H RBC 3.36 L Hgb 9.3 L Hct 31.1 L MCV 92.6 MCH 27.7 MCHC 29.9 L RDW Std Deviation 59.9 H RDW Coeff of Deborah 17.6 H Plt Count 545 H MPV 8.5 Immature Gran % (Auto) 0.900 Neut % (Auto) 86.7 H Lymph % (Auto) 4.9 L Dale % (Auto) 5.0 Eos % (Auto) 2.3 Baso % (Auto) 0.2 Absolute Neuts (auto) 11.2 H Absolute Lymphs (auto) 0.63 L Nucleated RBC % 0 ESR 110 H PT 25.1 H INR 2.4 APTT 67.3 H Sodium 138 Potassium 4.3 Chloride 106 Carbon Dioxide 29.0 Anion Gap 3 L BUN 12 Creatinine 0.51 L Estim Creat Clear Calc 115.31 Est GFR (MDRD) Af Amer 159 Est GFR (MDRD) Non-Af 131 BUN/Creatinine Ratio 23.4 H Glucose 93 Lactic Acid Calcium 8.7 Total Bilirubin 0.40 AST 7 L ALT 11 L Alkaline Phosphatase 132 H C-React Prot Ext Range 243.00 H Total Protein 6.5 Albumin 2.3 L Globulin 4.2 Albumin/Globulin Ratio 0.5 L Urine Color Urine Clarity Urine pH Ur Specific [place] Urine Protein Urine Glucose (UA) Urine Ketones Urine Occult Blood Urine Nitrite Urine Bilirubin Urine Urobilinogen Ur Leukocyte Esterase Urine RBC Urine WBC Ur Squamous Epith Cells Urine Bacteria Urine Mucus 07/11/20 07/11/20 14:14 14:35 WBC RBC Hgb Hct MCV MCH MCHC RDW Std Deviation RDW Coeff of Deborah Plt Count MPV Immature Gran % (Auto) Neut % (Auto) Lymph % (Auto) Dale % (Auto) Eos % (Auto) Baso % (Auto) Absolute Neuts (auto) Absolute Lymphs (auto) Nucleated RBC % ESR PT INR APTT Sodium Potassium Chloride Carbon Dioxide Anion Gap BUN Creatinine Estim Creat Clear Calc Est GFR (MDRD) Af Amer Est GFR (MDRD) Non-Af BUN/Creatinine Ratio Glucose Lactic Acid 0.9 Calcium Total Bilirubin AST ALT Alkaline Phosphatase C-React Prot Ext Range Total Protein Albumin Globulin Albumin/Globulin Ratio Urine Color Yellow Urine Clarity Sl. Cloudy Urine pH 6.0 Ur Specific [place] 1.010 Urine Protein Negative Urine Glucose (UA) Normal Urine Ketones Negative Urine Occult Blood Negative Urine Nitrite Negative Urine Bilirubin Negative Urine Urobilinogen Normal Ur Leukocyte Esterase 25 H Urine RBC 0 SEEN Urine WBC 0-5 SEEN Ur Squamous Epith Cells 0-5 SEEN Urine Bacteria 0 SEEN Urine Mucus 0 SEEN Radiology Impression Foot X-Ray 07/11/20 13:45 IMPRESSION: Multiple areas of the osteoporosis involving the tarsal bones as well as the metatarsal and metatarsophalangeal joints with soft tissue swelling. This may be related to reflex sympathetic dystrophy. Electronically Signed: Tyron Cheung MD at 14:43 EDT , Service support , Chest X-Ray 07/11/20 14:20 IMPRESSION: Focal increased linear markings at the left lung base suggestive of atelectasis. Electronically Signed: Tyron Cheung MD at 14:42 EDT , Service support , Assessment & Plan Assessment/Plan (1) Decubital ulcer: (2) Soft tissue infection: (3) Fever: (4) Metastatic renal cell carcinoma to bone: (5) Right pulmonary embolus: (6) History of non-ST elevation myocardial infarction (NSTEMI): (7) Chronic pain syndrome: PLAN: Patient is a 54-year-old female who presented to the ED at [facility] on 07/11/2020 with a chief complaint of fever. Patient reports feeling completely normal, however was notified by her primary care physician when she went in for a visit that she had a fever and that she should report to the emergency room for evaluation. Patient has a chronic decubitus ulcer about the sacrum and on the inferior aspect of the left buttock as well as a left great toe ulceration. Past medical history includes renal cell carcinoma with metastasis causing this finding decompression and paraplegia. Work-up in the ED demonstrated a mild leukocytosis at 12.9, mild anemia with a hemoglobin of 9.3 and an elevated ESR at 110. C-reactive protein elevated at 243. UA unremarkable. X-ray of the left foot demonstrates osteoporosis of the tarsal, metatarsal and metatarsophalangeal joints with soft tissue swelling, possibly related to reflex sympathetic dystrophy. Chest x-ray demonstrates linear markings at the left lung base possibly suggestive of atelectasis. Patient will be admitted for soft tissue infection. Empiric vancomycin and Zosyn initiated in the ED. 1) Soft tissue infection secondary to decubitus ulcer Decubitus ulcer about the sacrum and the first MTP of the left foot as above. ESR and CRP elevated above, as well as a mild leukocytosis at 12.9. X-ray about the left foot only demonstrates soft tissue swelling and osteoporosis about the tarsal bones, metatarsal and metatarsophalangeal joints. Plan; empiric vancomycin and Zosyn initiated, oncology/wound care consult requested, urine cu lture ordered, blood culture ordered. 2) renal cell carcinoma with metastasis Follows outpatient. Plan; Cabometyx continued. 3) GERD Continue PPI. 4) Chronic pain syndrome Continue gabapentin, methadone, Restoril. 5) hypothyroidism Continue Synthroid 6) Hx of PE Continue apixaban. DVT prophylax -Eliquis Patient seen by Fausto Elliott PA-C, under the supervision of Dr. Montgomery. Documented by User: Dr. Flavio Montgomery MD 07/11/20 19:53 HPI - General General Date of Admission: 07/11/20 [facility] Medical History (Updated 07/11/20 @ 17:53 by Fausto WALTERS) Acute renal failure KELLEE (acute kidney injury) Cancer Chronic pain syndrome Encephalopathy acute History of non-ST elevation myocardial infarction (NSTEMI) (01/28/19) Immunocompromised state Metastatic renal cell carcinoma to bone Non-ischemic cardiomyopathy Non-smoker Nonobstructive atherosclerosis of coronary artery Paraplegia following spinal cord injury Right pulmonary embolus (01/28/19) Sepsis Septic shock (01/29/19) Single kidney Takotsubo syndrome Home Medications temazepam 30 mg PO QHS 12/12/18 [History Last Taken 07/10/20] apixaban 5 mg PO BID 02/07/19 [History Last Taken 07/11/20] acyclovir 400 mg tablet 400 mg PO DAILY tab 08/19/19 [History Last Taken 07/11/20] furosemide 20 mg tablet 20 mg PO BID tab 08/19/19 [History Last Taken 07/11/20] methadone 5 mg tablet 10 mg PO DAILY tab 08/19/19 [History Last Taken 07/10/20] oxycodone 10 mg tablet 10 mg PO TID PRN PRN 08/19/19 [History Last Taken 07/10/20 22:00] potassium chloride 10 mEq tablet,extended release 20 meq PO BID tab 08/19/19 [History Last Taken 07/11/20] baclofen 5 mg tablet 7.5 mg PO BID tab 11/16/19 [History Last Taken 07/11/20] gabapentin 100 mg capsule 100 mg PO BID 11/16/19 [History Last Taken 07/11/20] gabapentin 300 mg capsule 300 mg PO QHS cap 11/16/19 [History Last Taken 07/10/20] carvedilol 3.125 mg tablet 3.125 mg PO BID #180 tab 03/12/20 [Rx Last Taken 07/11/20] cabozantinib [Cabometyx] 20 mg PO DAILY 07/11/20 [History Last Taken 07/11/20] calcium carbonate [Calcium 500] 500 mg PO DAILY 07/11/20 [History Last Taken 07/11/20] cholecalciferol (vitamin D3) 25 mcg PO DAILY 07/11/20 [History Last Taken 07/11/20] levothyroxine [Euthyrox] 75 mcg PO MOTUWETHFRSA 07/11/20 [History Last Taken 07/10/20] levothyroxine [Euthyrox] 150 mcg PO PLASCENCIA 07/11/20 [History Last Taken 07/08/20] melatonin 20 mg PO DAILY 07/11/20 [History Last Taken 07/10/20] methadone 15 mg PO DAILY 07/11/20 [History Last Taken 07/11/20] methenamine hippurate 1 g PO BID 07/11/20 [History Last Taken 07/11/20] omeprazole 40 mg PO DAILY 07/11/20 [History Last Taken 07/11/20] polyethylene glycol 3350 17 g PO QODAY 07/11/20 [History Last Taken 07/09/20] Allergy/AdvReac Type Severity Reaction Status Date / Time No Known Allergies Allergy Verified 07/11/20 13:28 Family History Mother Lung cancer Father Lung cancer Surgical History History of cholecystectomy History of left heart catheterization (01/31/19) History of right nephrectomy (03/30/13) History of spinal surgery (2017) Social History (Updated 11/16/19 @ 15:[address] Brad Zamora MD) Smoking Status: Never smoker Lab / Micro Data Result Diagrams: 07/11/20 14:14 07/11/20 14:14 Addendum Addendum: Dr. Montgomery: I personally reviewed the chart and examined the patient, and agree with the above findings. 54-year-old female who 7 years ago was found to have renal cell carcinoma at the time it was developed around her spine and she had supporting rods put in. About 2-1/2 years ago she started having neurological symptoms and it was found that the supporting rods had crumbled and she was now paralyzed from the waist down. She presents today secondary to a fever that she was having at home. She contacted her oncologist with the [facility] who told her to present to the hospital. UA was unremarkable, and chest x-ray was negative for pneumonia. She does have a decubitus ulcer over her sacrum as well as an ulcer on her right buttock. She does have an elevated ESR and CRP indicative of possible osteomyelitis however she states that she recently had an MRI at the [facility] therefore I recommended that we get the MRI results from [facility] to see whether or not that was of the pelvis to see if there is evidence of osteomyelitis at that time if not then would plan to repeat an MRI during this admission. We will continue with IV fluids and broad- spectrum antibiotics for now. Blood and urine cultures are pending. Visit Charges Inpatient E&M: 19032 Init Hosp L3
[2020-07-11] MEDS: 0.9% Normal Saline 1,000 ML 100 ML IV (17:50)
--- NOTE | 2020-07-11 18:01 | PCM.RX.CS ---
Consult Pharmacy has been consulted to manage selected antiobiotic: Vancomycin Type of Consult: New start Suspected Infection: Skin/Soft tissue Labs: Sodium 138 mmol/L (136-145) 07/11/20 14:14 Potassium 4.3 mmol/L (3.5-5.1) 07/11/20 14:14 Chloride 106 mmol/L (98-107) 07/11/20 14:14 Carbon Dioxide 29.0 mmol/L (21.0-32.0) 07/11/20 14:14 Anion Gap 3 (5-15) L 07/11/20 14:14 BUN 12 mg/dL (7-18) 07/11/20 14:14 Creatinine 0.51 mg/dL (0.55-1.02) L 07/11/20 14:14 Est GFR (MDRD) Af Amer 159 mL/min (>60) 07/11/20 14:14 Est GFR (MDRD) Non-Af 131 mL/min (>60) 07/11/20 14:14 BUN/Creatinine Ratio 23.4 RATIO (10-20) H 07/11/20 14:14 Glucose 93 mg/dL (74-106) 07/11/20 14:14 Goal Trough: 15-20 mcg/mL Pharmacy Plan for Drug Dosing: NEW START IV VANCOMYCIN Consulting Physician: Dr. Montgomery Indication: SSTI Goal Trough: 15-20 SrCr: 0.51 CrCl: 115 mL/min Comments: Initial dose 1g IV x1 given in ed 07/11/20 @1644 Vancomcyin Dose: 1g IV Q8h to start 07/12/20 @0100 Pending Level: 07/12/20 @1630, prior to 4th total dose per protocol Pharmacy Service will continue to monitor and adjust dosing as required.
[2020-07-11] MEDS: Potassium Chloride Oral Tablet 20 MEQ PO (18:30)
[2020-07-11] MEDS: 0.9% Normal Saline 1,000 ML 125 ML IV (20:42)
[2020-07-11] MEDS: Gabapentin 300 MG Capsule PO (21:12)
[2020-07-11] MEDS: APIXABAN 5 MG TABLET PO (21:12)
[2020-07-11] MEDS: MELATONIN 10 MG TABLET 20 MG PO (21:13)
[2020-07-11] MEDS: Temazepam 15 MG Capsule 30 MG PO (21:13)
[2020-07-11] MEDS: Methenamine Hippurate 1 GM Tablet PO (21:13)
[2020-07-11] MEDS: Methadone 10 MG Tablet PO (21:14)
[2020-07-11] MEDS: Baclofen 10 MG Tablet 5 MG PO (22:52)
[2020-07-12] VITALS (10 sets, daily range): BP systolic 82–112; BP diastolic 44–65; PULSE 85–108; RESP 16; TEMP 36.9–37.7; O2SAT 95–99
[2020-07-12] MEDS: Vancomycin IV 1,000 MG/200 ML BAG 200 MG IV ×3 (01:33→18:14)
[2020-07-12 05:06] LABS: Absolute Lymphocyte Count 0.69 X10^3/uL (0.83-4.51); Absolute Neutrophil Count 10.6 X10^3/uL (2.0-7.7); Basophil# 0.03 X10^3/uL; Basophil% 0.2 % (0-1); Eosinophil# 0.79 X10^3/uL; Eosinophils% 6.3 % (0-5); Hematocrit 25.6 % (37-47); Hemoglobin 7.8 g/dL (12.0-15.0); Lymphocyte # 0.69 X10^3/ul (0.83-4.51); Lymphocyte % 5.5 % (19-41); Mean Corp Hgb Conc 30.5 g/dL (32-36); Mean Corpuscular Hgb 28.1 pg (27.0-32.0); Mean Corpuscular Volume 92.1 fL (81-99); Mean Platelet Vol. 8.7 fl (6.2-12.0); Monocyte# 0.38 X10^3/uL; NRBC Flagged by Analyzer 0 % (0-5); Neutrophil # 10.55 X10^3/uL (2.7-7.7); Neutrophil % 84.3 % (47-70); Platelet Count 427 K/mm3 (150-450); RBC Distribution Width CV 17.8 % (11.6-14.6); RBC Distribution Width SD 60.3 fl (35.1-43.9); Red Blood Count 2.78 M/mm3 (4.2-5.4); White Blood Count 12.5 K/mm3 (4.4-11.0)
[2020-07-12 05:20] LABS: Anion Gap 5 (5-15); BUN 11 mg/dL (7-18); BUN/Creat Ratio 23.7 RATIO (10-20); Calcium,Total 7.5 mg/dL (8.5-10.1); Chloride 106 mmol/L (98-107); Creatinine, Serum 0.46 mg/dL (0.55-1.02); EST Glomerular Filtration Rate 147 mL/min (>60); Est Glom Filt Rate - Afr Amer 178 mL/min (>60); Estimated Creatinine Clearance 127.84 ml/min; Glucose 116 mg/dL (74-106); Potassium 3.7 mmol/L (3.5-5.1); Sodium Level 137 mmol/L (136-145)
[2020-07-12] MEDS: 0.9% Normal Saline 1,000 ML 125 ML IV ×3 (05:20→22:18)
[2020-07-12] MEDS: Levothyroxine 75 MCG Tablet PO (05:23)
[2020-07-12] MEDS: Baclofen 10 MG Tablet 5 MG PO ×3 (05:23→22:16)
[2020-07-12] MEDS: Gabapentin 100 MG Capsule PO ×2 (07:59→13:25)
[2020-07-12] MEDS: Potassium Chloride Oral Tablet 20 MEQ PO ×2 (07:59→16:15)
[2020-07-12] MEDS: Calcium (Elemental) 500 MG Tablet PO (08:02)
[2020-07-12] MEDS: Pantoprazole Sodium 40 MG Tablet PO (10:04)
[2020-07-12] MEDS: Cholecalciferol (VIT D3) 25 MCG TABLET (1,000 UNITS) PO (10:04)
[2020-07-12] MEDS: Acyclovir 200 MG Capsule 400 MG PO (10:04)
[2020-07-12] MEDS: APIXABAN 5 MG TABLET PO ×2 (10:06→22:17)
--- NOTE | 2020-07-12 10:09 | PCM.CONS.GEN ---
Assessment & Plan Assessment/Plan (1) Sepsis: PLAN: Unclear source. Decub ulcer and new wound do not appear grossly infected. No focal symptoms. Has L chest port, no inflammation. Will check covid and resp pcr panel. Bcx pending. Cont empiric vanc/zosyn for now. Has not been vaccinated for covid, counseled her re:importance of it for her and her . Will follow, thank you, d/w Dr. Bergman HPI Consult Data Date of Consult: 07/12/20 HPI Narrative HPI Narrative: SCOTTY REDMOND, is a 54 F with metastatic renal cancer, paraplegia, chronic sacral ulcer, presented yesterday with one day of fever, chills, sweats, shakes. Has new wound on L ischium that has developed over past few days, but no redness or drainage. No sick contacts. Lives with , neither vaccinated for covid. No new headache, sore throat, congestion, change in taste/smell, cough, SOB, n/v/d. Has chronic urinary catheter. Called Dr. Valiente, told to go to ED, admitted on vanc/zosyn. Full ROS performed and neg except as noted above. [facility]LY [facility] Medical History Acute renal failure KELLEE (acute kidney injury) Cancer Chronic pain syndrome Encephalopathy acute History of non-ST elevation myocardial infarction (NSTEMI) (01/28/19) Immunocompromised state Metastatic renal cell carcinoma to bone Non-ischemic cardiomyopathy Non-smoker Nonobstructive atherosclerosis of coronary artery Paraplegia following spinal cord injury Right pulmonary embolus (01/28/19) Sepsis Septic shock (01/29/19) Single kidney Takotsubo syndrome Home Medications temazepam 30 mg PO QHS 12/12/18 [History Last Taken 07/10/20] apixaban 5 mg PO BID 02/07/19 [History Last Taken 07/11/20] acyclovir 400 mg tablet 400 mg PO DAILY tab 08/19/19 [History Last Taken 07/11/20] furosemide 20 mg tablet 20 mg PO BID tab 08/19/19 [History Last Taken 07/11/20] methadone 5 mg tablet 10 mg PO DAILY tab 08/19/19 [History Last Taken 07/10/20] oxycodone 10 mg tablet 10 mg PO TID PRN PRN 08/19/19 [History Last Taken 07/10/20 22:00] potassium chloride 10 mEq tablet,extended release 20 meq PO BID tab 08/19/19 [History Last Taken 07/11/20] baclofen 5 mg tablet 7.5 mg PO BID tab 11/16/19 [History Last Taken 07/11/20] gabapentin 100 mg capsule 100 mg PO BID 11/16/19 [History Last Taken 07/11/20] gabapentin 300 mg capsule 300 mg PO QHS cap 11/16/19 [History Last Taken 07/10/20] carvedilol 3.125 mg tablet 3.125 mg PO BID #180 tab 03/12/20 [Rx Last Taken 07/11/20] cabozantinib [Cabometyx] 20 mg PO DAILY 07/11/20 [History Last Taken 07/11/20] calcium carbonate [Calcium 500] 500 mg PO DAILY 07/11/20 [History Last Taken 07/11/20] cholecalciferol (vitamin D3) 25 mcg PO DAILY 07/11/20 [History Last Taken 07/11/20] levothyroxine [Euthyrox] 75 mcg PO MOTUWETHFRSA 07/11/20 [History Last Taken 07/10/20] levothyroxine [Euthyrox] 150 mcg PO PLASCENCIA 07/11/20 [History Last Taken 07/08/20] melatonin 20 mg PO DAILY 07/11/20 [History Last Taken 07/10/20] methadone 15 mg PO DAILY 07/11/20 [History Last Taken 07/11/20] methenamine hippurate 1 g PO BID 07/11/20 [History Last Taken 07/11/20] omeprazole 40 mg PO DAILY 07/11/20 [History Last Taken 07/11/20] polyethylene glycol 3350 17 g PO QODAY 07/11/20 [History Last Taken 07/09/20] Allergy/AdvReac Type Severity Reaction Status Date / Time No Known Allergies Allergy Verified 07/11/20 13:28 Family History Mother Lung cancer Father Lung cancer Surgical History History of cholecystectomy History of left heart catheterization (01/31/19) History of right nephrectomy (03/30/13) History of spinal surgery (2018) Social History (Updated 11/16/19 @ 15:[address] Brad Zamora MD) Smoking Status: Never smoker Physical Exam Const alert, oriented x3 and no apparent distress General Appearance: cooperative HEENT normocephalic and head/scalp atraumatic Eyes PERRL and EOMs intact bilaterally Neck supple and No nodes Resp normal air movement and clear to auscultation bilaterally Cardio regular rate and regular rhythm GI normal to inspection, nondistended, normoactive bowel sounds Extremity no clubbing, cyanosis or edema Skin Skin Narrative: sacral ulcer and L ischial wound, no redness or drainage, no odor Neuro CN's II-XII intact bilaterally Lab / Micro Data Result Diagrams: 07/12/20 04:56 07/12/20 04:56 Labs: Laboratory Results - last 24 hr 07/11/20 07/11/20 07/11/20 14:14 14:14 14:14 WBC 12.9 H RBC 3.36 L Hgb 9.3 L Hct 31.1 L MCV 92.6 MCH 27.7 MCHC 29.9 L RDW Std Deviation 59.9 H RDW Coeff of Deborah 17.6 H Plt Count 545 H MPV 8.5 Immature Gran % (Auto) 0.900 Neut % (Auto) 86.7 H Lymph % (Auto) 4.9 L [place] % (Auto) 5.0 Eos % (Auto) 2.3 Baso % (Auto) 0.2 Absolute Neuts (auto) 11.2 H Absolute Lymphs (auto) 0.63 L Nucleated RBC % 0 ESR 110 H PT 25.1 H INR 2.4 APTT 67.3 H Sodium 138 Potassium 4.3 Chloride 106 Carbon Dioxide 29.0 Anion Gap 3 L BUN 12 Creatinine 0.51 L Estim Creat Clear Calc 115.31 Est GFR (MDRD) Af Amer 159 Est GFR (MDRD) Non-Af 131 BUN/Creatinine Ratio 23.4 H Glucose 93 Lactic Acid Calcium 8.7 Total Bilirubin 0.40 AST 7 L ALT 11 L Alkaline Phosphatase 132 H C-React Prot Ext Range 243.00 H Total Protein 6.5 Albumin 2.3 L Globulin 4.2 Albumin/Globulin Ratio 0.5 L Urine Color Urine Clarity Urine pH Ur Specific [place] Urine Protein Urine Glucose (UA) Urine Ketones Urine Occult Blood Urine Nitrite Urine Bilirubin Urine Urobilinogen Ur Leukocyte Esterase Urine RBC Urine WBC Ur Squamous Epith Cells Urine Bacteria Urine Mucus 07/11/20 07/11/20 07/12/20 14:14 14:35 04:56 WBC 12.5 H RBC 2.78 L Hgb 7.8 L Hct 25.6 L MCV 92.1 MCH 28.1 MCHC 30.5 L RDW Std Deviation 60.3 H RDW Coeff of Deborah 17.8 H Plt Count 427 MPV 8.7 Immature Gran % (Auto) 0.700 Neut % (Auto) 84.3 H Lymph % (Auto) 5.5 L [place] % (Auto) 3.0 Eos % (Auto) 6.3 H Baso % (Auto) 0.2 Absolute Neuts (auto) 10.6 H Absolute Lymphs (auto) 0.69 L Nucleated RBC % 0 ESR PT INR APTT Sodium Potassium Chloride Carbon Dioxide Anion Gap BUN Creatinine Estim Creat Clear Calc Est GFR (MDRD) Af Amer Est GFR (MDRD) Non-Af BUN/Creatinine Ratio Glucose Lactic Acid 0.9 Calcium Total Bilirubin AST ALT Alkaline Phosphatase C-React Prot Ext Range Total Protein Albumin Globulin Albumin/Globulin Ratio Urine Color Yellow Urine Clarity Sl. Cloudy Urine pH 6.0 Ur Specific [place] 1.010 Urine Protein Negative Urine Glucose (UA) Normal Urine Ketones Negative Urine Occult Blood Negative Urine Nitrite Negative Urine Bilirubin Negative Urine Urobilinogen Normal Ur Leukocyte Esterase 25 H Urine RBC 0 SEEN Urine WBC 0-5 SEEN Ur Squamous Epith Cells 0-5 SEEN Urine Bacteria 0 SEEN Urine Mucus 0 SEEN 07/12/20 04:56 WBC RBC Hgb Hct MCV MCH MCHC RDW Std Deviation RDW Coeff of Deborah Plt Count MPV Immature Gran % (Auto) Neut % (Auto) Lymph % (Auto) [place] % (Auto) Eos % (Auto) Baso % (Auto) Absolute Neuts (auto) Absolute Lymphs (auto) Nucleated RBC % ESR PT INR APTT Sodium 137 Potassium 3.7 Chloride 106 Carbon Dioxide 26.0 Anion Gap 5 BUN 11 Creatinine 0.46 L Estim Creat Clear Calc 127.84 Est GFR (MDRD) Af Amer 178 Est GFR (MDRD) Non-Af 147 BUN/Creatinine Ratio 23.7 H Glucose 116 H Lactic Acid Calcium 7.5 L Total Bilirubin AST ALT Alkaline Phosphatase C-React Prot Ext Range Total Protein Albumin Globulin Albumin/Globulin Ratio Urine Color Urine Clarity Urine pH Ur Specific [place] Urine Protein Urine Glucose (UA) Urine Ketones Urine Occult Blood Urine Nitrite Urine Bilirubin Urine Urobilinogen Ur Leukocyte Esterase Urine RBC Urine WBC Ur Squamous Epith Cells Urine Bacteria Urine Mucus Radiology Impression Foot X-Ray 07/11/20 13:45 IMPRESSION: Multiple areas of the osteoporosis involving the tarsal bones as well as the metatarsal and metatarsophalangeal joints with soft tissue swelling. This may be related to reflex sympathetic dystrophy. Electronically Signed: Tyron Cheung MD at 14:43 EDT , Service support , Chest X-Ray 07/11/20 14:20 IMPRESSION: Focal increased linear markings at the left lung base suggestive of atelectasis. Electronically Signed: Tyron Cheung MD at 14:42 EDT , Service support ,
--- NOTE | 2020-07-12 10:23 | PCM.PN.HOSP ---
Documented by User: Ramona Ellis NP, BEREAVEMENT PROGRAM COORDINATOR-C 07/12/20 10:47 Subjective Subjective: Patient seen and examined. Reports low-grade fever. Otherwise denies symptoms or complaints. Denies shortness of breath, cough. Patient's cares for her wounds and she states he noticed the small wound opened up quickly over the past few days. Denies drainage, foul smell. Objective Data Objective Data Vital Signs: Vital Signs Temp Pulse Resp BP Pulse Ox 99.8 F H 108 H 16 84/45 L 96 07/12/20 09:47 07/12/20 09:47 07/12/20 09:47 07/12/20 09:47 07/12/20 09:47 Oxygen Delivery Method Room Air Weight: 160 lb 0.889 oz Body Mass Index (BMI) 25.8 Finger Stick Blood Glucose 83 Intake & Output: Intake and Output for Last 24 Hours 07/10/20 07/11/20 07/12/20 23:59 23:59 23:59 Intake Total 586.67 / 706.67 1820 / 1820 Output Total 200 / 300 300 / 300 Balance 386.67 / 406.67 1520 / 1520 Lab / Micro Data Result Diagrams: 07/12/20 04:56 07/12/20 04:56 Labs: Laboratory Results - last 24 hr 07/11/20 07/11/20 07/11/20 14:14 14:14 14:14 WBC 12.9 H RBC 3.36 L Hgb 9.3 L Hct 31.1 L MCV 92.6 MCH 27.7 MCHC 29.9 L RDW Std Deviation 59.9 H RDW Coeff of Deborah 17.6 H Plt Count 545 H MPV 8.5 Immature Gran % (Auto) 0.900 Neut % (Auto) 86.7 H Lymph % (Auto) 4.9 L [place] % (Auto) 5.0 Eos % (Auto) 2.3 Baso % (Auto) 0.2 Absolute Neuts (auto) 11.2 H Absolute Lymphs (auto) 0.63 L Nucleated RBC % 0 ESR 110 H PT 25.1 H INR 2.4 APTT 67.3 H Sodium 138 Potassium 4.3 Chloride 106 Carbon Dioxide 29.0 Anion Gap 3 L BUN 12 Creatinine 0.51 L Estim Creat Clear Calc 115.31 Est GFR (MDRD) Af Amer 159 Est GFR (MDRD) Non-Af 131 BUN/Creatinine Ratio 23.4 H Glucose 93 Lactic Acid Calcium 8.7 Total Bilirubin 0.40 AST 7 L ALT 11 L Alkaline Phosphatase 132 H C-React Prot Ext Range 243.00 H Total Protein 6.5 Albumin 2.3 L Globulin 4.2 Albumin/Globulin Ratio 0.5 L Urine Color Urine Clarity Urine pH Ur Specific [place] Urine Protein Urine Glucose (UA) Urine Ketones Urine Occult Blood Urine Nitrite Urine Bilirubin Urine Urobilinogen Ur Leukocyte Esterase Urine RBC Urine WBC Ur Squamous Epith Cells Urine Bacteria Urine Mucus 07/11/20 07/11/20 07/12/20 14:14 14:35 04:56 WBC 12.5 H RBC 2.78 L Hgb 7.8 L Hct 25.6 L MCV 92.1 MCH 28.1 MCHC 30.5 L RDW Std Deviation 60.3 H RDW Coeff of Deborah 17.8 H Plt Count 427 MPV 8.7 Immature Gran % (Auto) 0.700 Neut % (Auto) 84.3 H Lymph % (Auto) 5.5 L [place] % (Auto) 3.0 Eos % (Auto) 6.3 H Baso % (Auto) 0.2 Absolute Neuts (auto) 10.6 H Absolute Lymphs (auto) 0.69 L Nucleated RBC % 0 ESR PT INR APTT Sodium Potassium Chloride Carbon Dioxide Anion Gap BUN Creatinine Estim Creat Clear Calc Est GFR (MDRD) Af Amer Est GFR (MDRD) Non-Af BUN/Creatinine Ratio Glucose Lactic Acid 0.9 Calcium Total Bilirubin AST ALT Alkaline Phosphatase C-React Prot Ext Range Total Protein Albumin Globulin Albumin/Globulin Ratio Urine Color Yellow Urine Clarity Sl. Cloudy Urine pH 6.0 Ur Specific [place] 1.010 Urine Protein Negative Urine Glucose (UA) Normal Urine Ketones Negative Urine Occult Blood Negative Urine Nitrite Negative Urine Bilirubin Negative Urine Urobilinogen Normal Ur Leukocyte Esterase 25 H Urine RBC 0 SEEN Urine WBC 0-5 SEEN Ur Squamous Epith Cells 0-5 SEEN Urine Bacteria 0 SEEN Urine Mucus 0 SEEN 07/12/20 04:56 WBC RBC Hgb Hct MCV MCH MCHC RDW Std Deviation RDW Coeff of Deborah Plt Count MPV Immature Gran % (Auto) Neut % (Auto) Lymph % (Auto) [place] % (Auto) Eos % (Auto) Baso % (Auto) Absolute Neuts (auto) Absolute Lymphs (auto) Nucleated RBC % ESR PT INR APTT Sodium 137 Potassium 3.7 Chloride 106 Carbon Dioxide 26.0 Anion Gap 5 BUN 11 Creatinine 0.46 L Estim Creat Clear Calc 127.84 Est GFR (MDRD) Af Amer 178 Est GFR (MDRD) Non-Af 147 BUN/Creatinine Ratio 23.7 H Glucose 116 H Lactic Acid Calcium 7.5 L Total Bilirubin AST ALT Alkaline Phosphatase C-React Prot Ext Range Total Protein Albumin Globulin Albumin/Globulin Ratio Urine Color Urine Clarity Urine pH Ur Specific [place] Urine Protein Urine Glucose (UA) Urine Ketones Urine Occult Blood Urine Nitrite Urine Bilirubin Urine Urobilinogen Ur Leukocyte Esterase Urine RBC Urine WBC Ur Squamous Epith Cells Urine Bacteria Urine Mucus Radiography Diagnostic Testing: Radiology Impression Foot X-Ray 07/11/20 13:45 IMPRESSION: Multiple areas of the osteoporosis involving the tarsal bones as well as the metatarsal and metatarsophalangeal joints with soft tissue swelling. This may be related to reflex sympathetic dystrophy. Electronically Signed: Tyron Cheung MD at 14:43 EDT , Service support , Chest X-Ray 07/11/20 14:20 IMPRESSION: Focal increased linear markings at the left lung base suggestive of atelectasis. Electronically Signed: Tyron Cheung MD at 14:42 EDT , Service support , Physical Exam Const alert, oriented x3 and no apparent distress Orientation / Consciousness: awake, oriented to person, oriented to place and oriented to time HEENT normocephalic and moist oral mucous membranes Eyes PERRL, EOMs intact bilaterally and conjunctivae normal Neck no lymphadenopathy Resp normal respiratory effort and clear to auscultation bilaterally Cardio regular rate, regular rhythm and no murmurs Peripheral Pulses: pulses 2+ throughout GI normal to inspection, nondistended, normoactive bowel sounds, non-tender and non-distended Extremity normal to inspection Skin no rashes or lesions noted Lesions: no lesions Rashes: no rashes Trauma: no lacerations or abrasions Wounds: wounds noted Wound Narrative: Sacral pressure ulcer, dressing intact. Left great toe anterior scab. Neuro oriented x3 and CN's II-XII intact bilaterally Neuro Narrative: Chronic paraplegia Sensorium / Orientation: awake and alert Psych affect normal Assessment & Plan Assessment/Plan (1) Sepsis: (2) Decubital ulcer: PLAN: 1. Sepsis, unclear source-sacral decubitus ulcers do not appear grossly infected. Will obtain culture. Blood cultures pending. ID following. Covid and respiratory panel pending. On IV vancomycin and IV Zosyn empirically. UA unremarkable. 2. Decubitus ulcer, chronic, present on admission-secondary to paraplegia-does not appear grossly infected as noted above. Wound RN consult. Recent MRI at [facility] without evidence of osteomyelitis. 3. Renal cell carcinoma with metastasis-follows with Dr. Valiente, on Cabometyx. 4. Chronic pain syndrome-on methadone, gabapentin. 5. Hypothyroidism-continue Synthroid. 6. GERD-continue PPI. 7. History of PE-on Eliquis. DVT prophylaxis-on Eliquis This patient was seen by NIKKY Trent under the supervision of Dr. Bergman. Documented by User: Dr. José Miguel Bergman MD 07/12/20 14:29 Subjective Subjective: Patient sacral decubitus ulcer does not look grossly infected. Has recently developed left ischial ulcer for past few days. No redness or inflammation. Small slough present. Wound photo reviewed. Objective Data Lab / Micro Data Result Diagrams: 07/12/20 04:56 07/12/20 04:56 Physical Exam Narrative Had T-max 100.9 Fahrenheit at time of admission. No high-grade fever since then. Physical exam General: Alert, Oriented x3, Cooperative HEENT: Atraumatic, PERRLA, EOMI, Normocephalic Oral: No Gingival or Mucosal Lesions/ Ulcerations Neck: Supple, No JVD, Negative Carotid Bruits Lungs: Air entry diminished in bilateral lung bases. No crepitation/rhonchi. Left-sided MediPort. No inflammation. Cardiovascular: Regular rate, Regular Rhythm, Normal S1, Normal S2, No murmurs Abdomen: Bowel Sounds Present, Soft, Non Tender, Non-Distended : Chronic indwelling Blount catheter.No suprapubic tenderness. Extremities: Mild bilateral ankle edema capillary Refill Less than 3 Seconds Skin: Small dry scab wound over left great toe Left ischium has slough, unstageable decubitus ulcer. Stage IV sacral decubitus. Musculoskeletal: Muscle power 1/5 at both lower extremities. Neurological: Paraplegia, no sensation below waist level. Chronic indwelling Blount catheter. Has bowel control. Psych/Mental Status: Normal Affect, Appropriate. Assessment & Plan Assessment/Plan (1) Decubital ulcer: (2) Fever: (3) Soft tissue infection: PLAN: This patient was seen in conjunction with Ramona WHYTE. I have independently interviewed and examined the patient and reviewed pertinent history, examination findings, laboratory and plan of management. I have reviewed the note and agree with the documented findings with the few additional points. In brief, patient is admitted with sepsis but sacral decubitus ulcer and left ischial insert does not look grossly infected. Empirically on IV vancomycin and Zosyn. Discussed with ID. Patient and her has not been Covid vaccinated. Advised Covid vaccination. Cultures are pending. Covid PCR ordered. Patient has history of renal carcinoma with metastasis around the spine resulting into paraplegia, urinary incontinence on chronic indwelling Blount catheter. Recent MRI at [facility] does not show evidence of osteomyelitis. Other comorbidities as mentioned above I have discussed my assessment with Ramona WHYTE and orders have been reviewed. Visit Charges Inpatient E&M: 57324 Subs Hosp L2
[2020-07-12] MEDS: Acetaminophen 325 MG Tablet 650 MG PO (11:48)
[2020-07-12] MEDS: Methenamine Hippurate 1 GM Tablet PO ×2 (11:48→22:22)
--- NOTE | 2020-07-12 11:48 | NURSING ---
wound photo: sacrum
--- NOTE | 2020-07-12 11:48 | NURSING ---
wound photo: left ischium
--- NOTE | 2020-07-12 11:49 | NURSING ---
wound photo: left great toe
[2020-07-12 12:58] LABS: M R Staph aureus DNA By PCR Negative (Negative); Probe Check PASS; Specimen Processing Control PASS; Staph aureus DNA By PCR POSITIVE (Negative)
--- NOTE | 2020-07-12 13:03 | CASEMGMT ---
Addendum entered by Lelo Kumari 07/12/20 15:38: TC to [facility] who state they do go to [place] and take [employer]. Requested referral info to be faxed. Done at this time. Pt denied a need for a local in network list of agencies. States she is looking for any agency who can take her. Addendum entered by Lelo Kumari 07/12/20 13:23: Notified Berta from [facility] that pt is admitted. Spoke to ADITYA Larsen for resources for pt. Direction Home info given to pt. Original Note: SHERRON MADRIGAL Assessment: Face to Face with pt for initial transition planning/care coordination assessment. SHERRON MADRIGAL introduced self and role at [facility], pt voices understanding and consents to assessment. Pt is A/O x4 and answers all questions appropriately at this time. Pt sitting up in bed with friend Aria Arce at bedside in no distress. Care providers, pharmacy, and demographics verified/updated. Admitting Dx: sepsis from decub ulcers PCP: [facility] Specialists: Sera, cardio; Jami gastro; Steffanie, onc; has rehab MD at [facility] as well. Preferred Pharmacy: [facility] Insurance: [employer] MCR Prescription Benefit: yes LW/HPOA: Pt has a LW/DPOA on file at [facility]. Pt DPOA is her Lexii Dickson. LNOK: Lexii Dickson, Living Arrangements: Pt lives with in a single story house with a ramp to enter. Pt states and caretakers that she pays privately assist with ADL's. Transportation: Pt caretakers, mother in law or provides transportation. Pt denies concerns with transportation. DME/HHC/SNF: Pt states she has an elevated toilet seat and w/c. Pt has had [facility] ( out of business now) and [facility] in the past with unsatisfactory care. Pt states she would like a HH agency to see her to help with her wounds but agencies do not come to her residence. She is not willing to have [facility] back, but would given [facility] another try. Pt denies SNF stays. TC to [facility] who does not service pt area. Pt is out of area for [facility]. TC to [facility] who states they have serviced pt in the past but are unable to go to that location now. Pt is aware of this and states this is how it usually is. Pt is active with [facility]. 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 Pt states she will establish with the C at [facility]. Pt states no concerns with going home at time of dc as she will go back to doing what she was doing. Pt states no further concerns/needs. CM to follow. Advised pt to ask CM if any further question/concerns/needs arise, voices understanding. Pt Goal: Home Plan: Home with family and medical esthetician support.
[2020-07-12] MEDS: Juven (unflavored) Packet 1 PACKET PO (17:23)
[2020-07-12 18:01] LABS: Vancomycin, Trough Level 18.9 ug/mL (5.0-15.0)
--- NOTE | 2020-07-12 20:29 | PCM.RX.CS ---
Consult Pharmacy has been consulted to manage selected antiobiotic: Vancomycin Type of Consult: Follow-up Suspected Infection: Sepsis, Skin/Soft tissue Prior Doses of Antibiotics Received/Current Regimen: Currently on 1gm iv q8h. Labs: Sodium 137 mmol/L (136-145) 07/12/20 04:56 Potassium 3.7 mmol/L (3.5-5.1) 07/12/20 04:56 Chloride 106 mmol/L (98-107) 07/12/20 04:56 Carbon Dioxide 26.0 mmol/L (21.0-32.0) 07/12/20 04:56 Anion Gap 5 (5-15) 07/12/20 04:56 BUN 11 mg/dL (7-18) 07/12/20 04:56 Creatinine 0.46 mg/dL (0.55-1.02) L 07/12/20 04:56 Est GFR (MDRD) Af Amer 178 mL/min (>60) 07/12/20 04:56 Est GFR (MDRD) Non-Af 147 mL/min (>60) 07/12/20 04:56 BUN/Creatinine Ratio 23.7 RATIO (10-20) H 07/12/20 04:56 Glucose 116 mg/dL (74-106) H 07/12/20 04:56 Vancomycin Trough 18.9 ug/mL (5.0-15.0) H 07/12/20 16:17 Microbiology: Microbiology 07/12/20 10:30 Mucosa - Nose Respiratory Panel (PCR) - Final Weight used for dosin kg Estimated Creatinine Clearance: ~128ml/min Goal Trough: 15-20 mcg/mL Pharmacy Plan for Drug Dosing: Today's trough level was 18.9 with goal range of 15-20mcg/ml. Will continue same regimen of 1gm iv q8h and get another trough level on 21 per protocol. Pharmacy Service will continue to monitor and adjust dosing as required. Follow-Up Labs: Trough Vancomycin - 5.7.21 @1630 before 1700 dose
[2020-07-12] MEDS: Temazepam 15 MG Capsule 30 MG PO (22:17)
[2020-07-12] MEDS: Methadone 10 MG Tablet PO (22:17)
[2020-07-12] MEDS: Gabapentin 300 MG Capsule PO (22:17)
[2020-07-12] MEDS: MELATONIN 10 MG TABLET 20 MG PO (22:17)
[2020-07-13] MEDS: Acetaminophen 325 MG Tablet 650 MG PO (00:23)
[2020-07-13] MEDS: Vancomycin IV 1,000 MG/200 ML BAG 200 MG IV ×2 (00:25→09:52)
[2020-07-13 04:40] VITALS: BP 91/55; PULSE 82; RESP 16; TEMP 36.6; O2SAT 96
[2020-07-13] MEDS: Levothyroxine 75 MCG Tablet PO (05:38)
[2020-07-13] MEDS: Baclofen 10 MG Tablet 5 MG PO ×2 (05:38→13:58)
[2020-07-13 05:51] LABS: Absolute Lymphocyte Count 0.85 X10^3/uL (0.83-4.51); Absolute Neutrophil Count 7.1 X10^3/uL (2.0-7.7); Basophil# 0.02 X10^3/uL; Basophil% 0.2 % (0-1); Eosinophil# 1.29 X10^3/uL; Eosinophils% 13.4 % (0-5); Hematocrit 26.1 % (37-47); Hemoglobin 7.5 g/dL (12.0-15.0); Lymphocyte # 0.85 X10^3/ul (0.83-4.51); Lymphocyte % 8.8 % (19-41); Mean Corp Hgb Conc 28.7 g/dL (32-36); Mean Corpuscular Volume 93.9 fL (81-99); Mean Platelet Vol. 8.8 fl (6.2-12.0); Monocyte# 0.35 X10^3/uL; Monocyte% 3.6 % (0-10); NRBC Flagged by Analyzer 0 % (0-5); Neutrophil # 7.05 X10^3/uL (2.7-7.7); Neutrophil % 73.3 % (47-70); Platelet Count 421 K/mm3 (150-450); RBC Distribution Width CV 18.3 % (11.6-14.6); RBC Distribution Width SD 63.7 fl (35.1-43.9); Red Blood Count 2.78 M/mm3 (4.2-5.4); White Blood Count 9.6 K/mm3 (4.4-11.0)
[2020-07-13 06:07] LABS: Anion Gap 5 (5-15); BUN 11 mg/dL (7-18); BUN/Creat Ratio 28.9 RATIO (10-20); Calcium,Total 7.2 mg/dL (8.5-10.1); Chloride 113 mmol/L (98-107); Creatinine, Serum 0.38 mg/dL (0.55-1.02); EST Glomerular Filtration Rate 185 mL/min (>60); Est Glom Filt Rate - Afr Amer 224 mL/min (>60); Estimated Creatinine Clearance 154.75 ml/min; Glucose 107 mg/dL (74-106); Potassium 3.7 mmol/L (3.5-5.1); Sodium Level 144 mmol/L (136-145)
[2020-07-13 08:00] VITALS: BP 119/65; PULSE 74; RESP 16; TEMP 37.1; O2SAT 96
[2020-07-13] MEDS: 0.9% Normal Saline 1,000 ML 125 ML IV (08:23)
[2020-07-13] MEDS: Juven (unflavored) Packet 1 PACKET PO (08:25)
[2020-07-13] MEDS: Potassium Chloride Oral Tablet 20 MEQ PO (08:25)
[2020-07-13] MEDS: Calcium (Elemental) 500 MG Tablet PO (08:25)
[2020-07-13] MEDS: Gabapentin 100 MG Capsule PO ×2 (08:25→13:58)
[2020-07-13] MEDS: Acyclovir 200 MG Capsule 400 MG PO (09:53)
[2020-07-13] MEDS: Pantoprazole Sodium 40 MG Tablet PO (09:54)
[2020-07-13] MEDS: APIXABAN 5 MG TABLET PO (09:55)
[2020-07-13] MEDS: Cholecalciferol (VIT D3) 25 MCG TABLET (1,000 UNITS) PO (09:55)
[2020-07-13] MEDS: Methenamine Hippurate 1 GM Tablet PO (09:56)
[2020-07-13 10:00] VITALS: RESP 18
[2020-07-13] MEDS: Polyethylene Glycol 3350 17 GM PACKET PO (10:00)
--- NOTE | 2020-07-13 11:05 | CASEMGMT ---
Addendum entered by Bri Matute 07/13/20 13:40: Discharge summary and instructions faxed to [facility] at this time. Addendum entered by Bri Matute 07/13/20 12:56: Ewa from [facility] states they are able to accept pt for SN/wound care. She was made aware anticipate pt will be ready for discharge today. She states SOC will most likely be Thursday. Pt made aware. Discussed HHC and services w/pt. She states she would like PT/OT and aide in addition to SN. Call placed back to [facility] and they were notified of these services added. Order faxed to [facility] for SN, PT/OT and aide. Will fax d/c instruc and summary once available. Pt denies other discharge/home-going needs. Original Note: SHERRON MADRIGAL NOTE: Ewa from [facility] requested pt's physical address, as only a PO box listed on demographics. Pt provided RN ROHAN w/her address at this time and this was given to [facility] [address] [place] [id number] Ewa states they do service pt's area and they will check on insurance approval. Awaiting return call. Isael GARCIA RN, CM
[2020-07-13] MEDS: Collagenase 30gm Tube 1 APPLIC TOPICAL (11:45)
--- NOTE | 2020-07-13 13:20 | PCM.DC ---
Discharge Instructions Diet Discharge Diet: No restrictions Activity Discharge Activity: Return to Normal Activity Dressing / Incision Call your doctor if your incision/area has: Continuous Slow Oozing, Sudden Increased Bleeding, Increased Pain/ Swelling, Increased Redness, Foul Smelling Discharge and Swelling at the incision site Call your doctor if you observe: Fever of 101 or Higher Follow Up Care Test Results: Test results from this visit will be discussed in further detail at your follow-up appointment, if applicable. Discharge Plan Admission Admit Date/Time: 07/11/20 15:41 Attending Provider: José Miguel Bergman Primary Care Provider: Aaron Chand Consulting Providers: Jason Tyson Instructions Additional Instructions / Restrictions: Cleanse wounds to sacrum and left ischium daily with normal saline, pat dry. Apply nickel thick layer of Santyl to the left ischium and cover with dry dressing. Change daily and as needed. Place Aquacel Ag to the sacrum wound and cover with dry dressing. Change daily and as needed. Discharge Orders/Prescriptions Prescriptions: New cephalexin 500 mg capsule 500 mg PO Q6H Qty: 28 RF: 0 metronidazole [Flagyl] 500 mg tablet 500 mg PO TID Qty: 21 RF: 0 Continued acyclovir 400 mg tablet 400 mg PO DAILY RF: 0 methadone 5 mg tablet 10 mg PO DAILY RF: 0 oxycodone 10 mg tablet 10 mg PO TID PRN PRN (Reason: Pain) RF: 0 potassium chloride 10 mEq tablet extended release 20 meq PO BID RF: 0 gabapentin 100 mg capsule 100 mg PO BID RF: 0 baclofen 5 mg tablet 7.5 mg PO BID RF: 0 temazepam 30 MG capsule 30 mg PO QHS RF: 0 furosemide 20 mg tablet 20 mg PO BID RF: 0 gabapentin 300 mg capsule 300 mg PO QHS RF: 0 apixaban 5 MG tablet 5 mg PO BID RF: 0 omeprazole 40 mg capsule,delayed release(DR/EC) 40 mg PO DAILY RF: 0 levothyroxine [Euthyrox] 75 mcg tablet 75 mcg PO MOTUWETHFRSA RF: 0 levothyroxine [Euthyrox] 75 mcg tablet 150 mcg PO PLASCENCIA RF: 0 methenamine hippurate 1 gram tablet 1 g PO BID RF: 0 calcium carbonate [Calcium 500] 500 mg calcium (1,250 mg) Tablet 500 mg PO DAILY RF: 0 polyethylene glycol 3350 17 gram/dose Powder 17 g PO QODAY RF: 0 methadone 5 mg tablet 15 mg PO DAILY RF: 0 cholecalciferol (vitamin D3) 25 mcg (1,000 unit) Capsule 25 mcg PO DAILY RF: 0 melatonin 10 mg Tablet 20 mg PO DAILY RF: 0 Cabometyx 20 mg Tablet 20 mg PO DAILY RF: 0 carvedilol [Coreg] 3.125 mg tablet 3.125 mg PO BID Qty: 180 RF: 3 Referrals / Follow Up: Aaorn Chand MD [Primary Care Provider] - In 1 Week Aguilar Valiente DO [STAFF PHYSICIAN] - See Referral Note (As scheduled ) Clinic,Wound [None] - Within 1 Week Disposition Disposition (needs filled in before D/C Order can be placed): Home Health Service
--- NOTE | 2020-07-13 13:31 | PCM.DC.SUM ---
Documented by User: Ramona Ellis NP, [employer]-C 07/13/20 13:37 Providers Date of Admission: 07/11/20 Primary Care Physician: Dr. 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 Routine Comment: Reason for Consult:: Decubitus ulcers 07/12/20 07:29 Consult: Infectious Disease Routine Consulting Provider: Jason Tyson Reason for Consult: Fever, osteomyelitis of sacrum, pelvis, paraplegia, decubitus ulcer EMERGENT Consult: No MD Notified: Yes Date Notified:: 07/12/20 Time Notified: 07:30 Method of Notification: Text Reason For Visit: SEPSIS FROM DECUB ULCERS Diagnosis Discharge Diagnosis (1) Decubital ulcer: Status: Acute Code(s): L89.90 - Pressure ulcer of unspecified site, unspecified stage (2) Fever: Status: Acute Code(s): R50.9 - Fever, unspecified (3) Soft tissue infection: Status: Acute Code(s): L08.9 - Local infection of the skin and subcutaneous tissue, unspecified Medications at Discharge Home Medications temazepam 30 mg PO QHS 12/12/18 apixaban 5 mg PO BID 02/07/19 acyclovir 400 mg tablet 400 mg PO DAILY tab 08/19/19 furosemide 20 mg tablet 20 mg PO BID tab 08/19/19 methadone 5 mg tablet 10 mg PO DAILY tab 08/19/19 oxycodone 10 mg tablet 10 mg PO TID PRN PRN 08/19/19 potassium chloride 10 mEq tablet,extended release 20 meq PO BID tab 08/19/19 baclofen 5 mg tablet 7.5 mg PO BID tab 11/16/19 gabapentin 100 mg capsule 100 mg PO BID 11/16/19 gabapentin 300 mg capsule 300 mg PO QHS cap 11/16/19 carvedilol 3.125 mg tablet 3.125 mg PO BID #180 tab 03/12/20 Cabometyx 20 mg PO DAILY 07/11/20 calcium carbonate [Calcium 500] 500 mg PO DAILY 07/11/20 cholecalciferol (vitamin D3) 25 mcg PO DAILY 07/11/20 levothyroxine [Euthyrox] 75 mcg PO MOTUWETHFRSA 07/11/20 levothyroxine [Euthyrox] 150 mcg PO PLASCENCIA 07/11/20 melatonin 20 mg PO DAILY 07/11/20 methadone 15 mg PO DAILY 07/11/20 methenamine hippurate 1 g PO BID 07/11/20 omeprazole 40 mg PO DAILY 07/11/20 polyethylene glycol 3350 17 g PO QODAY 07/11/20 cephalexin 500 mg PO Q6H #28 cap 07/13/20 metronidazole [Flagyl] 500 mg PO TID #21 tab 07/13/20 Hospital Course Operations None Procedures None Summary of Care Provided Minutes Spent on Discharge: 35 Hospital Course: Patient is a 54-year-old female admitted 07/11/2020 due to fever. 1. Sepsis, presumed secondary to chronic decubitus ulcers-ischium wound culture growing staph. Urine culture growing low colony count mixed gram-positive organisms and Pseudomonas. Blood cultures with no growth in 48 hours. Covid and respiratory panel negative. IV Zosyn and IV vancomycin during admission. ID consulted. Keflex and Flagyl for 7 days at discharge. Follow-up with wound center within 1 week for wound reassessment. 2. Chronic decubitus ulcerations with unstageable left ischial pressure wound and stage IV sacral pressure wound, secondary to paraplegia-wounds do not appear grossly infected as noted above however cultures growing staph. Antibiotics at discharge as noted above. Follow-up with wound center within 1 week. Home health at discharge for assistance with wound care as well. Recent MRI at [facility] without evidence of osteomyelitis. 3. Renal cell carcinoma with metastasis-follows with Dr. Valiente, on Cabometyx. 4. Chronic pain syndrome-on methadone, gabapentin. 5. Hypothyroidism-continue Synthroid. 6. GERD-continue PPI. 7. History of PE-on Eliquis. 8. Chronic normocytic anemia-reduced from baseline, suspect secondary to hemodilution. No evidence of active bleeding. On PPI at baseline. Recommend repeat CBC in 1 week by primary care provider for reassessment. Physical Exam Const alert, oriented x3 and no apparent distress Orientation / Consciousness: awake, oriented to person, oriented to place and oriented to time HEENT normocephalic and moist oral mucous membranes Eyes PERRL, EOMs intact bilaterally and conjunctivae normal Neck no lymphadenopathy Resp normal respiratory effort and clear to auscultation bilaterally Cardio regular rate, regular rhythm and no murmurs Peripheral Pulses: pulses 2+ throughout GI normal to inspection, nondistended, normoactive bowel sounds, non-tender and non-distended Extremity normal to inspection Skin no rashes or lesions noted Lesions: no lesions Rashes: no rashes Trauma: no lacerations or abrasions Wounds: wounds noted Wound Narrative: Sacral pressure ulcer, dressing intact. Left great toe anterior scab. Neuro oriented x3 and CN's II-XII intact bilaterally Neuro Narrative: Chronic paraplegia Sensorium / Orientation: awake and alert Psych affect normal Patient seen and examined prior to discharge. Physical assessment as noted above. Patient is stable for discharge with follow up recommendations as noted above. This patient was seen by NIKKY Trent under the supervision of Dr. Bergman. ABG / Lab / Microbiology Data Result Diagrams: 07/13/20 05:42 07/13/20 05:42 Laboratory: Laboratory Results - last 24 hr 07/12/20 07/12/20 07/13/20 10:30 16:17 05:42 WBC 9.6 RBC 2.78 L Hgb 7.5 L Hct 26.1 L MCV 93.9 MCH 27.0 MCHC 28.7 L D RDW Std Deviation 63.7 H RDW Coeff of Deborah 18.3 H Plt Count 421 MPV 8.8 Immature Gran % (Auto) 0.700 Neut % (Auto) 73.3 H Lymph % (Auto) 8.8 L [place] % (Auto) 3.6 Eos % (Auto) 13.4 H Baso % (Auto) 0.2 Absolute Neuts (auto) 7.1 Absolute Lymphs (auto) 0.85 Nucleated RBC % 0 Sodium Potassium Chloride Carbon Dioxide Anion Gap BUN Creatinine Estim Creat Clear Calc Est GFR (MDRD) Af Amer Est GFR (MDRD) Non-Af BUN/Creatinine Ratio Glucose Calcium Vancomycin Trough 18.9 H COVID-19 (DANIELLE) Not Detected 07/13/20 05:42 WBC RBC Hgb Hct MCV MCH MCHC RDW Std Deviation RDW Coeff of Deborah Plt Count MPV Immature Gran % (Auto) Neut % (Auto) Lymph % (Auto) [place] % (Auto) Eos % (Auto) Baso % (Auto) Absolute Neuts (auto) Absolute Lymphs (auto) Nucleated RBC % Sodium 144 Potassium 3.7 Chloride 113 H Carbon Dioxide 26.0 Anion Gap 5 BUN 11 Creatinine 0.38 L Estim Creat Clear Calc 154.75 Est GFR (MDRD) Af Amer 224 Est GFR (MDRD) Non-Af 185 BUN/Creatinine Ratio 28.9 H Glucose 107 H Calcium 7.2 L Vancomycin Trough COVID-19 (DANIELLE) Microbiology: Microbiology 07/12/20 10:05 Gram Stain - Final Wound - Ischium Wound Culture - Preliminary Staphylococcus species 07/11/20 14:55 Blood Culture - Preliminary Blood Culture (Wb) - Port No growth in 48 hours. 07/11/20 14:14 Blood Culture - Preliminary Blood Culture (Wb) - Port No growth in 48 hours. 07/11/20 14:35 Urine Culture - Final Urine, Clean Catch GNR Poss Pseudomonas sp Mixed Gram Positive Organisms 07/12/20 10:30 Respiratory Panel (PCR) - Final Mucosa - Nose Microbiology 07/12/20 10:05 Wound - Ischium Gram Stain - Final 07/12/20 10:05 Wound - Ischium Wound Culture - Preliminary Staphylococcus species 07/11/20 14:55 Blood Culture (Wb) - Port Blood Culture - Preliminary No growth in 48 hours. 07/11/20 14:14 Blood Culture (Wb) - Port Blood Culture - Preliminary No growth in 48 hours. 07/11/20 14:35 Urine, Clean Catch Urine Culture - Final GNR Poss Pseudomonas sp Mixed Gram Positive Organisms 07/12/20 10:30 Mucosa - Nose Respiratory Panel (PCR) - Final D/C Instructions Discharge Diet: No restrictions Discharge Activity: Return to Normal Activity Call your doctor if your incision/area has: Continuous Slow Oozing, Sudden Increased Bleeding, Increased Pain/ Swelling, Increased Redness, Foul Smelling Discharge and Swelling at the incision site Call your doctor if you observe: Fever of 101 or Higher Meaningful Use Info Meaningful Use Diagnoses (Choose all that apply): None applicable Discharge Plan Admission Admit Date/Time: 07/11/20 15:41 Attending Provider: José Miguel Bergman Primary Care Provider: Aaron Chand Consulting Providers: Jason Tyson Instructions Additional Instructions / Restrictions: Cleanse wounds to sacrum and left ischium daily with normal saline, pat dry. Apply nickel thick layer of Santyl to the left ischium and cover with dry dressing. Change daily and as needed. Place Aquacel Ag to the sacrum wound and cover with dry dressing. Change daily and as needed. Discharge Orders/Prescriptions Prescriptions: New cephalexin 500 mg capsule 500 mg PO Q6H Qty: 28 RF: 0 metronidazole [Flagyl] 500 mg tablet 500 mg PO TID Qty: 21 RF: 0 Continued acyclovir 400 mg tablet 400 mg PO DAILY RF: 0 methadone 5 mg tablet 10 mg PO DAILY RF: 0 oxycodone 10 mg tablet 10 mg PO TID PRN PRN (Reason: Pain) RF: 0 potassium chloride 10 mEq tablet extended release 20 meq PO BID RF: 0 gabapentin 100 mg capsule 100 mg PO BID RF: 0 baclofen 5 mg tablet 7.5 mg PO BID RF: 0 temazepam 30 MG capsule 30 mg PO QHS RF: 0 furosemide 20 mg tablet 20 mg PO BID RF: 0 gabapentin 300 mg capsule 300 mg PO QHS RF: 0 apixaban 5 MG tablet 5 mg PO BID RF: 0 omeprazole 40 mg capsule,delayed release(DR/EC) 40 mg PO DAILY RF: 0 levothyroxine [Euthyrox] 75 mcg tablet 75 mcg PO MOTUWETHFRSA RF: 0 levothyroxine [Euthyrox] 75 mcg tablet 150 mcg PO PLASCENCIA RF: 0 methenamine hippurate 1 gram tablet 1 g PO BID RF: 0 calcium carbonate [Calcium 500] 500 mg calcium (1,250 mg) Tablet 500 mg PO DAILY RF: 0 polyethylene glycol 3350 17 gram/dose Powder 17 g PO QODAY RF: 0 methadone 5 mg tablet 15 mg PO DAILY RF: 0 cholecalciferol (vitamin D3) 25 mcg (1,000 unit) Capsule 25 mcg PO DAILY RF: 0 melatonin 10 mg Tablet 20 mg PO DAILY RF: 0 Cabometyx 20 mg Tablet 20 mg PO DAILY RF: 0 carvedilol [Coreg] 3.125 mg tablet 3.125 mg PO BID Qty: 180 RF: 3 Referrals / Follow Up: Aaron Chand MD [Primary Care Provider] - 07/23/20 11:40 am Aguilar Valiente DO [STAFF PHYSICIAN] - See Referral Note (As scheduled ) Clinic,Wound [None] - Within 1 Week Disposition Disposition (needs filled in before D/C Order can be placed): Home Health Service Documented by User: Dr. José Miguel Bergman MD 07/13/20 14:22 Providers Date of Admission: 07/11/20 Reason For Visit: SEPSIS FROM DECUB ULCERS Medications at Discharge Home Medications temazepam 30 mg PO QHS 12/12/18 apixaban 5 mg PO BID 02/07/19 acyclovir 400 mg tablet 400 mg PO DAILY tab 08/19/19 furosemide 20 mg tablet 20 mg PO BID tab 08/19/19 methadone 5 mg tablet 10 mg PO DAILY tab 08/19/19 oxycodone 10 mg tablet 10 mg PO TID PRN PRN 08/19/19 potassium chloride 10 mEq tablet,extended release 20 meq PO BID tab 08/19/19 baclofen 5 mg tablet 7.5 mg PO BID tab 11/16/19 gabapentin 100 mg capsule 100 mg PO BID 11/16/19 gabapentin 300 mg capsule 300 mg PO QHS cap 11/16/19 carvedilol 3.125 mg tablet 3.125 mg PO BID #180 tab 03/12/20 Cabometyx 20 mg PO DAILY 07/11/20 calcium carbonate [Calcium 500] 500 mg PO DAILY 07/11/20 cholecalciferol (vitamin D3) 25 mcg PO DAILY 07/11/20 levothyroxine [Euthyrox] 75 mcg PO MOTUWETHFRSA 07/11/20 levothyroxine [Euthyrox] 150 mcg PO PLASCENCIA 07/11/20 melatonin 20 mg PO DAILY 07/11/20 methadone 15 mg PO DAILY 07/11/20 methenamine hippurate 1 g PO BID 07/11/20 omeprazole 40 mg PO DAILY 07/11/20 polyethylene glycol 3350 17 g PO QODAY 07/11/20 cephalexin 500 mg PO Q6H #28 cap 07/13/20 metronidazole [Flagyl] 500 mg PO TID #21 tab 07/13/20 Hospital Course Summary of Care Provided Hospital Course: This patient was seen in conjunction with FINGER BUFFS ASSEMBLERRamona. I have independently interviewed and examined the patient and reviewed pertinent history, examination findings, laboratory and plan of management. I have reviewed the note and agree with the documented findings with the few additional points. In brief, patient is admitted with sepsis but sacral decubitus ulcer and left ischial insert does not look grossly infected but growing MSSA. Urine culture low colony amount of mixed gram-positive organism and Pseudomonas seems contamination/colonization?patient has chronic indwelling Blount catheter. Initially, on IV vancomycin and Zosyn. Discussed with ID. Patient and her has not been Covid vaccinated. Advised Covid vaccination. Wound culture staph, PCR MSSA. Covid PCR negative. Patient is discharged on 1 week of Keflex and Flagyl. Patient has history of renal carcinoma with metastasis around the spine resulting into paraplegia, urinary incontinence on chronic indwelling Blount catheter. Recent MRI at [facility] does not show evidence of osteomyelitis. Other comorbidities as mentioned above Discharge medication reconciliation done. Discharge follow-up instructions completed. Discharge process discussed with the patient and all questions were answered to patient's satisfaction. Total time spent, exact 35 minutes on discharge meds reconciliation, examination, coordination of care with nurses and ancillary staff, review of imaging and blood test and discussion with the patient on follow-up instructions I have discussed my assessment with FINGER BUFFS ASSEMBL[employer]amona and orders have been reviewed. Physical Exam Narrative Seen and examined. No fever or chills. Patient wants to go home Physical exam General: Alert, Oriented x3, Cooperative HEENT: Atraumatic, PERRLA, EOMI, Normocephalic Oral: No Gingival or Mucosal Lesions/ Ulcerations Neck: Supple, No JVD, Negative Carotid Bruits Lungs: Air entry diminished in bilateral lung bases. No crepitation/rhonchi. Left-sided MediPort. No inflammation. Cardiovascular: Regular rate, Regular Rhythm, Normal S1, Normal S2, No murmurs Abdomen: Bowel Sounds Present, Soft, Non Tender, Non-Distended : Chronic indwelling Blount catheter.No suprapubic tenderness. Extremities: Mild ankle edema capillary Refill Less than 3 Seconds Skin: Small dry scab wound over left great toe Left ischium has slough, unstageable decubitus ulcer. Stage IV sacral decubitus. Musculoskeletal: Muscle power 1/5 at both lower extremities. Neurological: Paraplegia, no sensation below waist level. Chronic indwelling Blount catheter. Has bowel control. Psych/Mental Status: Normal Affect, Appropriate. ABG / Lab / Microbiology Data Result Diagrams: 07/13/20 05:42 07/13/20 05:42 Discharge Plan Admission Admit Date/Time: 07/11/20 15:41 Attending Provider: José Miguel Bergman Primary Care Provider: Aaron Chand Consulting Providers: Jason Tyson Instructions Additional Instructions / Restrictions: Cleanse wounds to sacrum and left ischium daily with normal saline, pat dry. Apply nickel thick layer of Santyl to the left ischium and cover with dry dressing. Change daily and as needed. Place Aquacel Ag to the sacrum wound and cover with dry dressing. Change daily and as needed. Discharge Orders/Prescriptions Prescriptions: New cephalexin 500 mg capsule 500 mg PO Q6H Qty: 28 RF: 0 metronidazole [Flagyl] 500 mg tablet 500 mg PO TID Qty: 21 RF: 0 Continued acyclovir 400 mg tablet 400 mg PO DAILY RF: 0 methadone 5 mg tablet 10 mg PO DAILY RF: 0 oxycodone 10 mg tablet 10 mg PO TID PRN PRN (Reason: Pain) RF: 0 potassium chloride 10 mEq tablet extended release 20 meq PO BID RF: 0 gabapentin 100 mg capsule 100 mg PO BID RF: 0 baclofen 5 mg tablet 7.5 mg PO BID RF: 0 temazepam 30 MG capsule 30 mg PO QHS RF: 0 furosemide 20 mg tablet 20 mg PO BID RF: 0 gabapentin 300 mg capsule 300 mg PO QHS RF: 0 apixaban 5 MG tablet 5 mg PO BID RF: 0 omeprazole 40 mg capsule,delayed release(DR/EC) 40 mg PO DAILY RF: 0 levothyroxine [Euthyrox] 75 mcg tablet 75 mcg PO MOTUWETHFRSA RF: 0 levothyroxine [Euthyrox] 75 mcg tablet 150 mcg PO PLASCENCIA RF: 0 methenamine hippurate 1 gram tablet 1 g PO BID RF: 0 calcium carbonate [Calcium 500] 500 mg calcium (1,250 mg) Tablet 500 mg PO DAILY RF: 0 polyethylene glycol 3350 17 gram/dose Powder 17 g PO QODAY RF: 0 methadone 5 mg tablet 15 mg PO DAILY RF: 0 cholecalciferol (vitamin D3) 25 mcg (1,000 unit) Capsule 25 mcg PO DAILY RF: 0 melatonin 10 mg Tablet 20 mg PO DAILY RF: 0 Cabometyx 20 mg Tablet 20 mg PO DAILY RF: 0 carvedilol [Coreg] 3.125 mg tablet 3.125 mg PO BID Qty: 180 RF: 3 Referrals / Follow Up: Aaron Chand MD [Primary Care Provider] - 07/23/20 11:40 am Aguilar Valiente DO [STAFF PHYSICIAN] - See Referral Note (As scheduled ) Clinic,Wound [None] - Within 1 Week Disposition Disposition (needs filled in before D/C Order can be placed): Home Health Service Visit Charges Inpatient E&M: [id number] Disch Hosp
--- NOTE | 2020-07-13 13:56 | PCM.PN.ID ---
Physical Exam Narrative Feeling better, no fever Const alert General Appearance: cooperative Resp clear to auscultation bilaterally Cardio regular rate and regular rhythm GI normal to inspection, nondistended, normoactive bowel sounds Skin Skin Narrative: sacral wounds bandaged ID ID: Route of nutrition/ use of supplements: [] Nutritional Intake: [] IV Site: [] Blount Catheter: [] Assessment & Plan Assessment/Plan (1) Sepsis: PLAN: Viral studies neg. Wound cx with staph, wound pcr with mssa. Ok for d/c on one week po keflex and flagyl. She does not drink etoh. Will follow as needed
[2020-07-13 15:26] VITALS: BP 98/59; PULSE 95; RESP 18; TEMP 37.1; O2SAT 98
--- NOTE | 2020-07-16 14:16 | CASEMGMT ---
SHERRON MADRIGAL Discharge F/U Phone Call LACE: 11 Strata: 3 Discharge date: 07/13/20 Call date: 07/16/20 Call time: [phone] Attempted to reach pt without success, message left for pt to call this SHERRON MADRIGAL back if/when able. Pt was set up with [facility] at discharge and also was back in ED on 07/15/20 but was discharged home. [place] SHERRON MADRIGAL Admission dx: Sepsis from decub ulcers
== END 2020-07-13 16:40 | disposition home health service (06) | DRG 871 ==
LOC: ED 15:11 → PCU 16:37
PROVIDERS: Internal Medicine Infectious Disease; Nurse Practitioner Family; Admitting Provider Family Medicine; Emergency Provider Emergency Medicine; PCP Family Medicine; Visit Provider Internal Medicine
DX: A41.9 Sepsis, unspecified organism (principal); L89.154 Pressure ulcer of sacral region, stage 4; G82.20 Paraplegia, unspecified; C64.9 Malignant neoplasm of unspecified kidney, except renal pelvis; C79.51 Secondary malignant neoplasm of bone; L89.309 Pressure ulcer of unspecified buttock, unspecified stage; G89.4 Chronic pain syndrome; E03.9 Hypothyroidism, unspecified; K21.9 Gastro-esophageal reflux disease without esophagitis; Z86.711 Personal history of pulmonary embolism; D64.9 Anemia, unspecified; Z79.02 Long term (current) use of antithrombotics/antiplatelets; Z79.899 Other long term (current) drug therapy; Z99.3 Dependence on wheelchair; Z87.891 Personal history of nicotine dependence; L08.9 Local infection of the skin and subcutaneous tissue, unspecified; B95.61 Methicillin susceptible Staphylococcus aureus infection as the cause of diseases classified elsewhere
CPT/HCPCS: 36415; 36591; 71045; 73630; 80048; 80053; 80202; 81001; 83605; 85025; 85610; 85652; 85730; 86140; 87040; 87070; 87077; 87086; 87088; 87186; 87205; 87633; 87635; 87640; 93005; 99285; J7030; J7040; A4216; U0002

== ENCOUNTER 2020-07-15 05:56 | Emergency (ER) | payer MEDICARE, SELFPAY ==
[2020-07-11 16:35] VITALS: BMI 25.8
[2020-07-15] VITALS (7 sets, daily range): BP systolic 88–104; BP diastolic 44–88; PULSE 73–89; RESP 12–16; TEMP 36.6–36.7; O2SAT 95–98; BMI 28.3
--- NOTE | 2020-07-15 06:30 | EKG12_ITS ---
Test Reason : Blood Pressure : / mmHG Vent. Rate : 076 BPM Atrial Rate : 076 BPM P-R Int : 128 ms QRS Dur : 084 ms QT Int : 404 ms P-R-T Axes : 024 -17 001 degrees QTc Int : 454 ms Normal sinus rhythm Normal ECG Confirmed by COLETTE ROWLAND, VALENTINA ([id number]), primer expeditor and drier TENISHA HEIN ([id number]) on 07/16/2020 1:11:06 PM Referred By: YARA Confirmed By:VALENTINA ALVARENGA MD
--- NOTE | 2020-07-15 06:30 | RAD_ITS ---
STUDY: X-RAY CHEST REASON FOR EXAM: Female, 54 years old. Fever TECHNIQUE: Single AP portable view of the chest. COMPARISON: 07/11/2020. FINDINGS: Left-sided Port-A-Cath in stable position. Persistent mild elevation of the left hemidiaphragm and mild atelectatic changes in the left lung base. There is no demonstrated pleural abnormality. Normal size heart. Normal mediastinum and john. Normal visualized pulmonary arteries. Normal visualized aortic arch and descending thoracic aorta. Unchanged osseous structures. There is no demonstrated abnormality of the visualized soft tissue structures of the upper abdomen. RAD/Chest 1 View (Portable) IMPRESSION: Atelectatic changes in the left lung base unchanged since prior exam. No new infiltrate is seen. Electronically Signed: Nikolay Johnson MD at 9:13 EDT Tel , Service support ,
--- NOTE | 2020-07-15 06:43 | CT_ITS ---
EXAM: CT ABDOMEN AND PELVIS WITH INTRAVENOUS CONTRAST CLINICAL INDICATION: Fever, history of right nephrectomy for cancer with metastases. TECHNIQUE: Helically acquired images were obtained of the abdomen and pelvis with intravenous contrast. This CT exam was performed using one or more of the following dose reduction techniques: automated exposure control, adjustment of the mA and/or kV according to patient size, and/or use of iterative reconstruction technique. This report was created using [employer] report generation technology. CONTRAST: IV 100mL [id number] COMPARISON: 01/28/2020 FINDINGS: LOWER THORAX: Small bilateral pleural effusions and compressive atelectatic changes. ABDOMEN: LIVER: Hepatomegaly. GALLBLADDER AND BILE DUCTS: Status post cholecystectomy. No biliary dilatation. PANCREAS: Atrophic pancreas. No focal cystic or solid mass. SPLEEN: Unremarkable. Normal size without focal cystic or solid mass. ADRENALS: Unremarkable. No nodules. KIDNEYS AND URETERS: Status post right nephrectomy. STOMACH AND BOWEL: Fecal retention. No evidence for acute diverticulitis. PELVIS: APPENDIX: Nonvisualization the appendix. BLADDER: Blount catheter in place. Thickening of the bladder could be due to underdistention. Cystitis cannot be excluded. REPRODUCTIVE: Unremarkable as visualized. No mass. ABDOMEN and PELVIS: INTRAPERITONEAL SPACE: Unremarkable. No ascites or other fluid collection. No free air. BONES/JOINTS: Unchanged osseous structures. Partially visualized low density adjacent to right hip unchanged. No suspicious lytic or blastic abnormality. SOFT TISSUES: Left decubitus ulcerations with thickening and stranding in subcutaneous fat. No drainable abscess is seen. Mild presacral stranding. No discrete abdominal or pelvic wall hernia. VASCULATURE: Unremarkable. Abdominal aorta is non-dilated. LYMPH NODES: Unremarkable. No enlarged lymph nodes. CT/Abdomen/Pelvis WITH Contrast IMPRESSION: 1. Small bilateral pleural effusions and compressive atelectatic changes. 2. Hepatomegaly. 3. Status post right nephrectomy. 4. Left decubitus ulcerations with thickening and inflammatory changes in subcutaneous fat. No drainable abscess is seen. Electronically Signed: Nikolay Johnson MD at 9:11 EDT Tel , Service support ,
--- NOTE | 2020-07-15 06:49 | EDS_ITS ---
HPI <Dr. Austyn Hassan DO - Last Filed: 07/15/20 06:58> History of Present Illness Chief Complaint: Fever Informant: patient and spouse/S.O. Onset/Context/Timing Onset: Yesterday Quality: Sharp Location: Upper abdomen Worsened by: Nothing Relieved by: Nothing Narrative Narrative: Patient presents with fever that began yesterday. Patient was discharged from the hospital 2 days ago after being admitted for sepsis due to decubitus ulcer wound. Patient states that she developed a fever of 102 earlier this morning. Patient took 2 Tylenol. Patient rechecked her temperature an hour after that and it was still 100. Patient states her abdomen feels bloated. Patient admits to some nausea and vomiting. Patient states her emesis was dark brown but is unsure if it was coffee grounds. Patient denies any diarrhea. Patient denies any dysuria or hematuria. [facility] <Dr. Austyn Hassan DO - Last Filed: 07/15/20 06:58> [facility] Medical History Acute renal failure KELLEE (acute kidney injury) Cancer Chronic pain syndrome Encephalopathy acute History of non-ST elevation myocardial infarction (NSTEMI) (01/28/19) Immunocompromised state Metastatic renal cell carcinoma to bone Non-ischemic cardiomyopathy Non-smoker Nonobstructive atherosclerosis of coronary artery Paraplegia following spinal cord injury Right pulmonary embolus (01/28/19) Sepsis Septic shock (01/29/19) Single kidney Takotsubo syndrome Home Medications temazepam 30 mg PO QHS 12/12/18 [History Last Taken 07/10/20] apixaban 5 mg PO BID 02/07/19 [History Last Taken 07/11/20] acyclovir 400 mg tablet 400 mg PO DAILY tab 08/19/19 [History Last Taken 07/11/20] furosemide 20 mg tablet 20 mg PO BID tab 08/19/19 [History Last Taken 07/11/20] methadone 5 mg tablet 10 mg PO DAILY tab 08/19/19 [History Last Taken 07/10/20] oxycodone 10 mg tablet 10 mg PO TID PRN PRN 08/19/19 [History Last Taken 07/10/20 22:00] potassium chloride 10 mEq tablet,extended release 20 meq PO BID tab 08/19/19 [History Last Taken 07/11/20] baclofen 5 mg tablet 7.5 mg PO BID tab 11/16/19 [History Last Taken 07/11/20] gabapentin 100 mg capsule 100 mg PO BID 11/16/19 [History Last Taken 07/11/20] gabapentin 300 mg capsule 300 mg PO QHS cap 11/16/19 [History Last Taken 07/10/20] carvedilol 3.125 mg tablet 3.125 mg PO BID #180 tab 03/12/20 [Rx Last Taken 07/11/20] Cabometyx 20 mg PO DAILY 07/11/20 [History Last Taken 07/11/20] calcium carbonate [Calcium 500] 500 mg PO DAILY 07/11/20 [History Last Taken 07/11/20] cholecalciferol (vitamin D3) 25 mcg PO DAILY 07/11/20 [History Last Taken 07/11/20] levothyroxine [Euthyrox] 75 mcg PO MOTUWETHFRSA 07/11/20 [History Last Taken 07/10/20] levothyroxine [Euthyrox] 150 mcg PO PLASCENCIA 07/11/20 [History Last Taken 07/08/20] melatonin 20 mg PO DAILY 07/11/20 [History Last Taken 07/10/20] methadone 15 mg PO DAILY 07/11/20 [History Last Taken 07/11/20] methenamine hippurate 1 g PO BID 07/11/20 [History Last Taken 07/11/20] omeprazole 40 mg PO DAILY 07/11/20 [History Last Taken 07/11/20] polyethylene glycol 3350 17 g PO QODAY 07/11/20 [History Last Taken 07/09/20] cephalexin 500 mg PO Q6H #28 cap 07/13/20 [Rx Last Taken Unknown] metronidazole [Flagyl] 500 mg PO TID #21 tab 07/13/20 [Rx Last Taken Unknown] Allergy/AdvReac Type Severity Reaction Status Date / Time No Known Allergies Allergy Verified 07/15/20 05:57 Family History Mother Lung cancer Father Lung cancer Surgical History History of cholecystectomy History of left heart catheterization (01/31/19) History of right nephrectomy (03/30/13) History of spinal surgery (2018) Social History Smoking Status: Never smoker ROS <Dr. Austyn Hassan DO - Last Filed: 07/15/20 06:58> ROS ED Constitutional Constitutional ED: Reports fever(s) and sweats Eyes Eyes: Denies blurry vision or change in vision ENT ENT ED: Denies rhinorrhea or sore throat Cardiovascular Cardiovascular: Denies chest pain or palpitations Respiratory/Chest Respiratory/Chest: Reports cough; Denies dyspnea Gastrointestinal Gastrointestinal: Reports abdominal pain, nausea and vomiting Genitourinary Genitourinary ED: Denies dysuria or hematuria Musculoskeletal Musculoskeletal: Denies back pain or neck pain Integumentary Denies abscess or rash Neurologic Neurologic: Reports headache(s) and weakness Allergic/Immunologic Allergic/Immunologic ED: Denies mouth swelling or urticaria EXAM <Dr. Austyn Hassan DO - Last Filed: 07/15/20 06:58> Physical Exam Const Vital Signs: 07/15/20 05:57 07/15/20 06:04 07/15/20 06:38 Temperature 97.9 F 97.9 F Temperature Source Oral Oral Pulse Rate 89 86 Respiratory Rate 14 12 Respiratory Pattern Normal Blood Pressure 88/59 L 88/59 L Blood Pressure Mean 68 68 Pulse Ox 95 97 Oxygen Delivery Method Room Air Room Air 07/15/20 07:04 07/15/20 08:00 07/15/20 09:00 Temperature 98.0 F 97.9 F 97.9 F Temperature Source Temporal Temporal Temporal Pulse Rate 78 73 81 Respiratory Rate 15 14 14 Respiratory Pattern Blood Pressure 104/88 H 93/57 L 91/44 L Blood Pressure Mean 93 69 59 Pulse Ox 98 96 98 Oxygen Delivery Method Room Air Room Air Room Air 07/15/20 10:00 Temperature 97.9 F Temperature Source Temporal Pulse Rate 80 Respiratory Rate 15 Respiratory Pattern Blood Pressure 104/54 L Blood Pressure Mean 70 Pulse Ox 97 Oxygen Delivery Method Room Air Positive well nourished and well developed General Appearance ED: well developed HEENT Reports moist mucous membranes Neck supple and no JVD Resp normal respiratory effort and clear to auscultation bilaterally Cardio regular rate and regular rhythm GI normal to inspection, nondistended, normoactive bowel sounds Palpation: soft and tender LUQ and RUQ; Negative for guarding or rebound tenderness present Neuro oriented x3, CN's II-XII intact bilaterally and no sensory deficits noted Sensorium / Orientation: alert Psych mental status grossly normal <Dr. Chip Benitez MD - Last Filed: 07/15/20 10:25> Physical Exam Const Vital Signs: 07/15/20 05:57 07/15/20 06:04 07/15/20 06:38 Temperature 97.9 F 97.9 F Temperature Source Oral Oral Pulse Rate 89 86 Respiratory Rate 14 12 Respiratory Pattern Normal Blood Pressure 88/59 L 88/59 L Blood Pressure Mean 68 68 Pulse Ox 95 97 Oxygen Delivery Method Room Air Room Air 07/15/20 07:04 07/15/20 08:00 07/15/20 09:00 Temperature 98.0 F 97.9 F 97.9 F Temperature Source Temporal Temporal Temporal Pulse Rate 78 73 81 Respiratory Rate 15 14 14 Respiratory Pattern Blood Pressure 104/88 H 93/57 L 91/44 L Blood Pressure Mean 93 69 59 Pulse Ox 98 96 98 Oxygen Delivery Method Room Air Room Air Room Air 07/15/20 10:00 Temperature 97.9 F Temperature Source Temporal Pulse Rate 80 Respiratory Rate 15 Respiratory Pattern Blood Pressure 104/54 L Blood Pressure Mean 70 Pulse Ox 97 Oxygen Delivery Method Room Air MDM <Dr. Austyn Hassan DO - Last Filed: 07/15/20 06:58> MDM MDM Narrative Medical decision making narrative: Patient was given IV fluids. Patient's blood pressure improved. EKG was obtained. On my interpretation, it showed a normal sinus rhythm with a rate of 76. MD interval, QRS interval, and QTc intervals were all normal. Gentry was normal. There are no acute ST or T wave changes. Sepsis labs were obtained. Portable chest x-ray was ordered. CT scan of the abdomen and pelvis was ordered. These are all pending. Care of the patient was turned over to the oncoming physician. Lab Data Labs: Laboratory Results - last 24 hr 07/15/20 07/15/20 07/15/20 06:54 06:54 06:54 WBC 10.1 RBC 2.95 L Hgb 8.1 L Hct 27.2 L MCV 92.2 MCH 27.5 MCHC 29.8 L RDW Std Deviation 63.7 H RDW Coeff of Deborah 18.7 H Plt Count 567 H MPV 8.9 Immature Gran % (Auto) 0.400 Neut % (Auto) 74.0 H Lymph % (Auto) 15.1 L [place] % (Auto) 5.0 Eos % (Auto) 5.3 H Baso % (Auto) 0.2 Absolute Neuts (auto) 7.5 Absolute Lymphs (auto) 1.52 Nucleated RBC % 0 PT 21.7 H INR 2.0 APTT 60.6 H Sodium 139 Potassium 3.8 Chloride 106 Carbon Dioxide 28.0 Anion Gap 5 BUN 9 Creatinine 0.49 L Estim Creat Clear Calc 120.01 Est GFR (MDRD) Af Amer 168 Est GFR (MDRD) Non-Af 139 BUN/Creatinine Ratio 18.4 Glucose 85 Lactic Acid Calcium 8.2 L Total Bilirubin 0.30 AST 9 L ALT 10 L Alkaline Phosphatase 119 H Total Protein 5.8 L Albumin 1.8 L Globulin 4.0 Albumin/Globulin Ratio 0.4 L Urine Color Urine Clarity Urine pH Ur Specific Gary Urine Protein Urine Glucose (UA) Urine Ketones Urine Occult Blood Urine Nitrite Urine Bilirubin Urine Urobilinogen Ur Leukocyte Esterase Urine RBC Urine WBC Ur Squamous Epith Cells Urine Bacteria Urine Mucus 07/15/20 07/15/20 06:54 07:25 WBC RBC Hgb Hct MCV MCH MCHC RDW Std Deviation RDW Coeff of Deborah Plt Count MPV Immature Gran % (Auto) Neut % (Auto) Lymph % (Auto) [place] % (Auto) Eos % (Auto) Baso % (Auto) Absolute Neuts (auto) Absolute Lymphs (auto) Nucleated RBC % PT INR APTT Sodium Potassium Chloride Carbon Dioxide Anion Gap BUN Creatinine Estim Creat Clear Calc Est GFR (MDRD) Af Amer Est GFR (MDRD) Non-Af BUN/Creatinine Ratio Glucose Lactic Acid 1.2 Calcium Total Bilirubin AST ALT Alkaline Phosphatase Total Protein Albumin Globulin Albumin/Globulin Ratio Urine Color Yellow Urine Clarity Clear Urine pH 7.0 Ur Specific Gary 1.030 Urine Protein Negative Urine Glucose (UA) Normal Urine Ketones Negative Urine Occult Blood Negative Urine Nitrite Negative Urine Bilirubin Negative Urine Urobilinogen Normal Ur Leukocyte Esterase Negative Urine RBC 0 SEEN Urine WBC 0 SEEN Ur Squamous Epith Cells 0 SEEN Urine Bacteria 0 SEEN Urine Mucus 0 SEEN Radiography Diagnostic Testing: Radiology Impression Chest X-Ray 07/15/20 06:30 IMPRESSION: Atelectatic changes in the left lung base unchanged since prior exam. No new infiltrate is seen. Electronically Signed: Nikolay Johnson MD at 9:13 EDT Tel , Service support , Abdomen/Pelvis CT 07/15/20 06:43 IMPRESSION: 1. Small bilateral pleural effusions and compressive atelectatic changes. 2. Hepatomegaly. 3. Status post right nephrectomy. 4. Left decubitus ulcerations with thickening and inflammatory changes in subcutaneous fat. No drainable abscess is seen. Electronically Signed: Nikolay Johnson MD at 9:11 EDT Tel , Service support , EKG Initial EKG: Attestation: I personally reviewed and interpreted this EKG as follows: Interpretation: Sinus Rhythm (76) and No Acute Injury Pattern Prior: Unchanged <Dr. Chip Benitez MD - Last Filed: 07/15/20 10:25> [facility] MDM Narrative Medical decision making narrative: Patient was checked out to me and I reevaluated her, and I examined the sacral decubitus wounds. Patient's inspector missile was in the room during this. He agrees that the wounds have looked pretty good and he has been the one changing the dressings regularly, the large 1 he is changing twice a day and the other one every day or every other day. There is no surrounding erythema or cellulitis. There appears to be healthy granulation tissue in the wounds. We change the packings/dressings. Clinically there is no abscess in the CT is in agreement with this. There was some stranding on the CT around these wounds, but no other acute abnormality. Clinically the patient otherwise has been well. He confirms that the patient's blood pressures run low, here they have been anywhere from 88 systolic to about 105, he states that has been the norm recently. She was on chemotherapy a month or 2 ago, which delayed healing of these wounds, but she has been off of that. I discussed all of this with Dr. Truong, covering for Dr. Tyson with infectious disease, Dr. Tyson had seen the patient in the hospital and discharged her on cephalexin and Flagyl for the MRSA that cultured out of the wound. Her blood cultures were negative and they are repeated today. He recommends discharging the patient home with close outpatient follow-up given that she is not clinically septic, nor the ancillaries show this. He also does not recommend any other antibiotics at this time, just recommending return to the ER for repeated high temps. The patient's inspector missile states that there was a temperature Thursday night at 3 AM and last night at 3 AM. He wonders if it has something to do with the electric blanket and other things that she has to keep her from getting cold overnight, and I agree that I would watch for fevers during the day when she is awake. Lab Data Attestation: I reviewed the patient's lab results. Labs: Laboratory Results - last 24 hr 07/15/20 07/15/20 07/15/20 06:54 06:54 06:54 WBC 10.1 RBC 2.95 L Hgb 8.1 L Hct 27.2 L MCV 92.2 MCH 27.5 MCHC 29.8 L RDW Std Deviation 63.7 H RDW Coeff of Deborah 18.7 H Plt Count 567 H MPV 8.9 Immature Gran % (Auto) 0.400 Neut % (Auto) 74.0 H Lymph % (Auto) 15.1 L [place] % (Auto) 5.0 Eos % (Auto) 5.3 H Baso % (Auto) 0.2 Absolute Neuts (auto) 7.5 Absolute Lymphs (auto) 1.52 Nucleated RBC % 0 PT 21.7 H INR 2.0 APTT 60.6 H Sodium 139 Potassium 3.8 Chloride 106 Carbon Dioxide 28.0 Anion Gap 5 BUN 9 Creatinine 0.49 L Estim Creat Clear Calc 120.01 Est GFR (MDRD) Af Amer 168 Est GFR (MDRD) Non-Af 139 BUN/Creatinine Ratio 18.4 Glucose 85 Lactic Acid Calcium 8.2 L Total Bilirubin 0.30 AST 9 L ALT 10 L Alkaline Phosphatase 119 H Total Protein 5.8 L Albumin 1.8 L Globulin 4.0 Albumin/Globulin Ratio 0.4 L Urine Color Urine Clarity Urine pH Ur Specific Gary Urine Protein Urine Glucose (UA) Urine Ketones Urine Occult Blood Urine Nitrite Urine Bilirubin Urine Urobilinogen Ur Leukocyte Esterase Urine RBC Urine WBC Ur Squamous Epith Cells Urine Bacteria Urine Mucus 07/15/20 07/15/20 06:54 07:25 WBC RBC Hgb Hct MCV MCH MCHC RDW Std Deviation RDW Coeff of Deborah Plt Count MPV Immature Gran % (Auto) Neut % (Auto) Lymph % (Auto) [place] % (Auto) Eos % (Auto) Baso % (Auto) Absolute Neuts (auto) Absolute Lymphs (auto) Nucleated RBC % PT INR APTT Sodium Potassium Chloride Carbon Dioxide Anion Gap BUN Creatinine Estim Creat Clear Calc Est GFR (MDRD) Af Amer Est GFR (MDRD) Non-Af BUN/Creatinine Ratio Glucose Lactic Acid 1.2 Calcium Total Bilirubin AST ALT Alkaline Phosphatase Total Protein Albumin Globulin Albumin/Globulin Ratio Urine Color Yellow Urine Clarity Clear Urine pH 7.0 Ur Specific Gary 1.030 Urine Protein Negative Urine Glucose (UA) Normal Urine Ketones Negative Urine Occult Blood Negative Urine Nitrite Negative Urine Bilirubin Negative Urine Urobilinogen Normal Ur Leukocyte Esterase Negative Urine RBC 0 SEEN Urine WBC 0 SEEN Ur Squamous Epith Cells 0 SEEN Urine Bacteria 0 SEEN Urine Mucus 0 SEEN Radiography Diagnostic Testing: Radiology Impression Chest X-Ray 07/15/20 06:30 IMPRESSION: Atelectatic changes in the left lung base unchanged since prior exam. No new infiltrate is seen. Electronically Signed: Nikolay Johnson MD at 9:13 EDT Tel , Service support , Abdomen/Pelvis CT 07/15/20 06:43 IMPRESSION: 1. Small bilateral pleural effusions and compressive atelectatic changes. 2. Hepatomegaly. 3. Status post right nephrectomy. 4. Left decubitus ulcerations with thickening and inflammatory changes in subcutaneous fat. No drainable abscess is seen. Electronically Signed: Nikolay Johnson MD at 9:11 EDT Tel , Service support , Discharge Plan Triage Chief Complaint: Fever ED Provider: Austyn Hassan Dx/Rx/DC Orders Clinical Impression: Fever, Soft tissue infection, Decubitus ulcer of sacral region Instructions: ED Wound Check (Infection) Prescriptions: No Action acyclovir 400 mg tablet 400 mg PO DAILY RF: 0 methadone 5 mg tablet 10 mg PO DAILY RF: 0 oxycodone 10 mg tablet 10 mg PO TID PRN PRN (Reason: Pain) RF: 0 potassium chloride 10 mEq tablet extended release 20 meq PO BID RF: 0 gabapentin 100 mg capsule 100 mg PO BID RF: 0 baclofen 5 mg tablet 7.5 mg PO BID RF: 0 temazepam 30 MG capsule 30 mg PO QHS RF: 0 furosemide 20 mg tablet 20 mg PO BID RF: 0 gabapentin 300 mg capsule 300 mg PO QHS RF: 0 apixaban 5 MG tablet 5 mg PO BID RF: 0 omeprazole 40 mg capsule,delayed release(DR/EC) 40 mg PO DAILY RF: 0 levothyroxine [Euthyrox] 75 mcg tablet 75 mcg PO MOTUWETHFRSA RF: 0 levothyroxine [Euthyrox] 75 mcg tablet 150 mcg PO PLASCENCIA RF: 0 methenamine hippurate 1 gram tablet 1 g PO BID RF: 0 calcium carbonate [Calcium 500] 500 mg calcium (1,250 mg) Tablet 500 mg PO DAILY RF: 0 polyethylene glycol 3350 17 gram/dose Powder 17 g PO QODAY RF: 0 methadone 5 mg tablet 15 mg PO DAILY RF: 0 cholecalciferol (vitamin D3) 25 mcg (1,000 unit) Capsule 25 mcg PO DAILY RF: 0 melatonin 10 mg Tablet 20 mg PO DAILY RF: 0 Cabometyx 20 mg Tablet 20 mg PO DAILY RF: 0 cephalexin 500 mg capsule 500 mg PO Q6H Qty: 28 RF: 0 metronidazole [Flagyl] 500 mg tablet 500 mg PO TID Qty: 21 RF: 0 carvedilol [Coreg] 3.125 mg tablet 3.125 mg PO BID Qty: 180 RF: 3 Primary Care Provider: Aaron Chand Referrals: Aaron Chand MD [Primary Care Provider] - 2 Days Disposition Disposition: Home, self care
[2020-07-15 07:08] LABS: Absolute Lymphocyte Count 1.52 X10^3/uL (0.83-4.51); Absolute Neutrophil Count 7.5 X10^3/uL (2.0-7.7); Basophil# 0.02 X10^3/uL; Basophil% 0.2 % (0-1); Eosinophil# 0.53 X10^3/uL; Eosinophils% 5.3 % (0-5); Hematocrit 27.2 % (37-47); Hemoglobin 8.1 g/dL (12.0-15.0); Lymphocyte # 1.52 X10^3/ul (0.83-4.51); Lymphocyte % 15.1 % (19-41); Mean Corp Hgb Conc 29.8 g/dL (32-36); Mean Corpuscular Hgb 27.5 pg (27.0-32.0); Mean Corpuscular Volume 92.2 fL (81-99); Mean Platelet Vol. 8.9 fl (6.2-12.0); NRBC Flagged by Analyzer 0 % (0-5); Neutrophil # 7.46 X10^3/uL (2.7-7.7); Platelet Count 567 K/mm3 (150-450); RBC Distribution Width CV 18.7 % (11.6-14.6); RBC Distribution Width SD 63.7 fl (35.1-43.9); Red Blood Count 2.95 M/mm3 (4.2-5.4); White Blood Count 10.1 K/mm3 (4.4-11.0)
[2020-07-15 07:18] LABS: Prothrombin Time (Protime)PT. 21.7 SECONDS (11.7-14.9)
[2020-07-15 07:20] LABS: Partial Thromboplast Time 60.6 Seconds (24.1-36.2)
[2020-07-15 07:25] LABS: ALB/GLOB Ratio 0.4 RATIO (0.9-2.4); AST(SGOT) 9 U/L (15-37); Alanine Aminotransfer ALT/SGPT 10 U/L (13-56); Albumin, Serum 1.8 g/dL (3.2-5.0); Alkaline Phosphatase 119 U/L (45-117); Anion Gap 5 (5-15); BUN 9 mg/dL (7-18); BUN/Creat Ratio 18.4 RATIO (10-20); Calcium,Total 8.2 mg/dL (8.5-10.1); Chloride 106 mmol/L (98-107); Creatinine, Serum 0.49 mg/dL (0.55-1.02); EST Glomerular Filtration Rate 139 mL/min (>60); Est Glom Filt Rate - Afr Amer 168 mL/min (>60); Estimated Creatinine Clearance 120.01 ml/min; Glucose 85 mg/dL (74-106); Potassium 3.8 mmol/L (3.5-5.1); Protein, Total 5.8 g/dL (6.4-8.2); Sodium Level 139 mmol/L (136-145)
[2020-07-15 07:35] LABS: Bacteria 0 SEEN /hpf (None Seen); Mucous, Urine 0 SEEN /hpf (<or=2+); Red Blood Cells-Urine 0 SEEN /hpf (0-5); Squamous Epithelial Cells - UA 0 SEEN /hpf (5-10); White Blood Cells 0 SEEN /hpf (0-5)
[2020-07-15 07:39] LABS: Color, Urine Yellow (Yellow); Glucose, Dipstick Normal (Normal); Ketone-Dipstick Negative (Negative); Leukocyte Esterase-Dipstick Negative /ul (Negative); Nitrite-Dipstick Negative (Negative); Occult Blood-Urine Negative /ul (Negative); Protein-Dipstick Negative (Negative); Urine Bilirubin Dipstick Negative (Negative); Urine Clarity Clear (Clear); Urine Urobilinogen Normal (Normal)
[2020-07-15 07:50] LABS: Lactic Acid 1.2 mmol/L (0.4-1.9)
[2020-07-15] MEDS: 0.9% Normal Saline 1,000 ML 999 ML IV (07:59)
[2020-07-15] MEDS: Ondansetron 4 MG/2 ML Vial IV (09:17)
== END 2020-07-15 11:16 | disposition home or self-care (01) ==
PROVIDERS: Emergency Provider Emergency Medicine; PCP Family Medicine
DX: L08.9 Local infection of the skin and subcutaneous tissue, unspecified (principal); R50.9 Fever, unspecified; L89.159 Pressure ulcer of sacral region, unspecified stage; G82.20 Paraplegia, unspecified; C79.51 Secondary malignant neoplasm of bone; C64.9 Malignant neoplasm of unspecified kidney, except renal pelvis; Z86.711 Personal history of pulmonary embolism; Z79.02 Long term (current) use of antithrombotics/antiplatelets; Z79.891 Long term (current) use of opiate analgesic; Z79.899 Other long term (current) drug therapy
CPT/HCPCS: 36591; 71045; 74177; 80053; 81001; 83605; 85025; 85610; 85730; 87040; 87086; 93005; 96361; 96374; 99285; J7030; Q9967; A4216; J2405

== ENCOUNTER 2020-07-30 14:30 | Outpatient (RCR) | payer MEDICARE, SELFPAY ==
[2020-07-15 05:57] VITALS: BMI 28.3
[2020-07-24 13:29] VITALS: BP 115/67; PULSE 78; RESP 18; TEMP 36; BMI 23.8
--- NOTE | 2020-07-24 16:49 | HP.PCM_ITS ---
History of Present Illness Date of Service: 07/24/20 Chief Complaint: Sacral ulcer and now a new right ischial ulcer that started 1 month ago. History of Wound: 54 year old female was admitted on 07/11/20 and discharged on 07/13/20 for sepsis related to an infected decubitus ulcer. She was treated with I V Vancomycin and Zosyn. ID was consulted and she was discharged on Keflex and Flagyl x 7 days for a culture positive for Staphylococcus. She has been a paraplegic for 2.5 years after her back hardware broke. She also has a history of Renal cell carcinoma with metastasis and sees Dr. Valiente. She is on Cabometyx for that. She was referred to the wound center for further evaluation of her ulcers. She had been seeing a autism specialist at the [facility] until she left several months ago. Her does her wound care for her. They most recently had been placing antibiotic ointment and covering with gauze. On the new right ischial ulcer he has used Dakin's the was switched to Santyl. She does sit in her wheelchair up to 12 hours a day while her is at work. They have someone come and help her out of bed in the morning and get her into her wheelchair. She has a new cushion on her wheelchair from the past several months. Wound cultures obtained today, 07/24/20. Wound care - Will start Dakins solution 0.25 moistened gauze to both ulcers. Cover with dry guaze daily. Today she denies fever, chills and states she has a good appetite. Progress of Wound: Sacral ulcer is stable and beefy pink in color. Right Ischial ulcer has a large amount of slough. It is into the muscle. The bone is not currently exposed. [facility] Medical History (Updated 07/27/20 @ 14:54 by Desiree Aguilar NP, [employer]) Acute renal failure KELLEE (acute kidney injury) Cancer Chronic pain syndrome Encephalopathy acute History of non-ST elevation myocardial infarction (NSTEMI) (01/28/19) Immunocompromised state Metastatic renal cell carcinoma to bone Non-ischemic cardiomyopathy Non-smoker Nonobstructive atherosclerosis of coronary artery Paraplegia following spinal cord injury Right pulmonary embolus (01/28/19) Sacral decubitus ulcer, stage IV Sepsis Septic shock (01/29/19) Single kidney Takotsubo syndrome Home Medications temazepam 30 mg PO QHS 12/12/18 [History Last Taken 07/10/20] apixaban 5 mg PO BID 02/07/19 [History Last Taken 07/11/20] acyclovir 400 mg tablet 400 mg PO DAILY tab 08/19/19 [History Last Taken 07/11/20] furosemide 20 mg tablet 20 mg PO BID tab 08/19/19 [History Last Taken 07/11/20] methadone 5 mg tablet 10 mg PO DAILY tab 08/19/19 [History Last Taken 07/10/20] oxycodone 10 mg tablet 10 mg PO TID PRN PRN 08/19/19 [History Last Taken 07/10/20 22:00] potassium chloride 10 mEq tablet,extended release 20 meq PO BID tab 08/19/19 [History Last Taken 07/11/20] baclofen 5 mg tablet 7.5 mg PO BID tab 11/16/19 [History Last Taken 07/11/20] gabapentin 100 mg capsule 100 mg PO BID 11/16/19 [History Last Taken 07/11/20] gabapentin 300 mg capsule 300 mg PO QHS cap 11/16/19 [History Last Taken 07/10/20] carvedilol 3.125 mg tablet 3.125 mg PO BID #180 tab 03/12/20 [Rx Last Taken 07/11/20] Cabometyx 20 mg PO DAILY 07/11/20 [History Last Taken 07/11/20] calcium carbonate [Calcium 500] 500 mg PO DAILY 07/11/20 [History Last Taken 07/11/20] cholecalciferol (vitamin D3) 25 mcg PO DAILY 07/11/20 [History Last Taken 0 07/11/20] levothyroxine [Euthyrox] 75 mcg PO MOTUWETHFRSA 07/11/20 [History Last Taken 07/10/20] levothyroxine [Euthyrox] 150 mcg PO PLASCENCIA 07/11/20 [History Last Taken 07/08/20] melatonin 20 mg PO DAILY 07/11/20 [History Last Taken 07/10/20] methadone 15 mg PO DAILY 07/11/20 [History Last Taken 07/11/20] methenamine hippurate 1 g PO BID 07/11/20 [History Last Taken 07/11/20] omeprazole 40 mg PO DAILY 07/11/20 [History Last Taken 07/11/20] polyethylene glycol 3350 17 g PO QODAY 07/11/20 [History Last Taken 07/09/20] cephalexin 500 mg PO Q6H #28 cap 07/13/20 [Rx Last Taken Unknown] metronidazole [Flagyl] 500 mg PO TID #21 tab 07/13/20 [Rx Last Taken Unknown] Allergy/AdvReac Type Severity Reaction Status Date / Time No Known Allergies Allergy Verified 07/15/20 05:57 Family History Mother Lung cancer Father Lung cancer Surgical History History of cholecystectomy History of left heart catheterization (01/31/19) History of right nephrectomy (03/30/13) History of spinal surgery (2017) Social History Smoking Status: Never smoker ROS Constitutional Constitutional: Denies fatigue, fever(s), frequent falls or headache(s) Eyes Eyes: Reports none ENT HEENT: Reports none Cardiovascular Cardiovascular: Reports none Respiratory/Chest Respiratory/Chest: Reports none Gastrointestinal Gastrointestinal: Reports dyspepsia Musculoskeletal Musculoskeletal: Reports atrophy and other Details: She is wheelchair bound Integumentary Integumentary: Reports other Details: Sacral ulcer and new buttock ulcer Neurologic Neurologic: Reports none Psychiatric Psychiatric: Reports none Endocrine Endocrinology: Reports cold intolerance Vital Signs Vital Signs Vital Signs: 07/24/20 13:29 Temperature 96.8 F L Temperature Source Temporal Pulse Rate 78 Respiratory Rate 18 Blood Pressure 115/67 Blood Pressure Mean 83 Physical Exam Const alert, oriented x3 and no apparent distress General Appearance: cooperative and well kempt HEENT normocephalic Eyes PERRL Neck full ROM Lymph Lymphatic: no lymphedema noted Resp normal respiratory effort and normal air movement Effort and Inspection: able to speak in complete sentences Cardio regular rate and regular rhythm GI soft to palpation, non-tender and non-distended no CVA tenderness Extremity normal capillary refill Skin Wound Narrative: Sacral ulcer stage IV, base of ulcer is beefy pink. Right ischial ulcer with increased kern slough, attempted to debride some of it out. Able to palpate the bone but it is covered with tissue, ulcer is into the muscle. Hair: normal Neuro oriented x3 and CN's II-XII intact bilaterally Psych mental status grossly normal Appearance: grossly normal Debridement Note Debridement Note Post-Debridement Measurements and Additional Note: Post-Debridement Measurements/Treatment - Nurse 1 - General Ulcer Assessment Start: 07/24/20 13:20 Freq: Status: Active Protocol: YOLA Activity Type Activity Date Activity User E-Sign Co-Sign Detail Recorded Client Recorded Date Recorded By Document 07/24/20 13:29 PL [id number] 07/24/20 13:49 PL 07/24/20 13:29 WC - Today's Visit Information Type of service Initial Visit Arrival Mode Wheelchair Transfer Assistance Manual Patient Identification Verified (Name & Yes ) Patient Requires Transmission-Based No Precautions Safety Precautions NA Height and Weight Height 5 ft 6 in Weight 148 lb Weight in Pounds 148.0 lbs Weight Measurement Method Estimated by Patient Body Mass Index (BMI) 23.8 BMI Classification Normal BSA - Tatiana 1.76 Vital Signs Temperature (97.8 F-99.1 F) 96.8 F L Temperature Source Temporal Pulse Rate (60-100) 78 Respiratory Rate (12-18) 18 Blood Pressure (90/60-120/80) 115/67 Blood Pressure Mean 83 History Since Last Visit- (Skip if this is Patient's initial visit) Have you changed medications since your No last visit? Any new allergies or adverse reactions No Had a fall/change in ADL's that may No increase risk of falls Signs or symptoms of abuse and/or No neglect since last visit Have you been in the hospital since your No last visit? Has dressing in place as prescribed Yes Has compression in place as prescribed N/A Has offloadiing in place as prescribed N/A Experienced any changes in pain level or No management Pain Scale: 0-10 Numeric Is Patient Pain Free? Yes - Nurse 1 - General Ulcer Measurement Start: 07/24/20 13:20 Freq: Status: Active Protocol: Activity Type Activity Date Activity User E-Sign Co-Sign Detail Recorded Client Recorded Date Recorded By Document 07/24/20 13:29 PL [id number] 07/24/20 13:49 PL 07/24/20 13:29 Wound Center Nurse 1 #2 Left buttock -Combined with other wound No -Current Size (cm) - Length 3 -Current Size (cm) - Width 2 -Current Size (cm) - Depth 3.5 -Total Square Cm 6 -Date of Last Picture (Recall this 07/24/20 field) -Photo Taken Yes -Epithelialization None Present -Tunneling Yes -Tunneling Position (O'clock) 7 -Tunneling Distance (cm) 3.5 -Undermining/Tunneling Yes -Undermining/Tunneling Starts (O'clock 5 ) -Undermining/Tunneling Ends (O'clock) 7 -Maximum Distance (cm) 1.5 -Classification - Thickness Full Thickness with Exposed Support Structure -Classification - Pressure Ulcer Stage 3 -Exudate Amt Large -Exudate Type Yellow/Green -Wound Margin Flat & Intact -Granulation Amt Medium (34-66%) -Granulation Quality [place] -Slough/Fibrin Yes -Necrosis Amt Medium (34-66%) -Necrotic Tissue Type Adherent Slough -Texture (Annamaria-wound Skin Appearance) No Abnormality -Moisture (Annamaria-wound Skin Appearance) No Abnormality -Color (Annamaria-wound Skin Appearance) No Abnormality -Temperature (Annamaria-wound Skin No Abnormality Appearance) (Pt Warm) -Tenderness on Palpation (Annamaria-wound No Skin Appearance) -Ulcer Cleansing Rinsed/ Irrigated with Saline -Foul Odor after Cleansing No #1 Sacrum -Combined with other wound No -Current Size (cm) - Length 6 -Current Size (cm) - Width 5 -Current Size (cm) - Depth 0.5 -Total Square Cm 30 -Date of Last Picture (Recall this 07/24/20 field) -Photo Taken Yes -Epithelialization None Present -Tunneling No -Undermining/Tunneling No -Circular Undermining No -Classification - Thickness Full Thickness with Exposed Support Structure -Classification - Pressure Ulcer Stage 3 -Exudate Amt Large -Exudate Type Yellow/Green -Wound Margin Indistinct, Non -Visible -Granulation Amt Medium (34-66%) -Granulation Quality [place] -Slough/Fibrin Yes -Necrosis Amt Medium (34-66%) -Necrotic Tissue Type Adherent Slough -Texture (Annamaria-wound Skin Appearance) No Abnormality -Moisture (Annamaria-wound Skin Appearance) No Abnormality -Color (Annamaria-wound Skin Appearance) No Abnormality -Temperature (Annamaria-wound Skin No Abnormality Appearance) (Pt Warm) -Tenderness on Palpation (Annamaria-wound No Skin Appearance) -Ulcer Cleansing Rinsed/ Irrigated with Saline -Foul Odor after Cleansing No WC - Nurse 2 - General Ulcer CM Notes Start: 07/24/20 13:20 Freq: Status: Active Protocol: Activity Type Activity Date Activity User E-Sign Co-Sign Detail Recorded Client Recorded Date Recorded By Document 07/24/20 14:17 ESTRELLA [id number] 07/24/20 14:30 ESTRELLA 07/24/20 14:17 Wound Center Nurse 2 #2 Left buttock -Time 14:18 -Correct Patient Yes -Correct Side, Site, Position Yes -Correct Procedure Yes -Procedure Performed Yes -Type of Procedure Debridement -Clinical Debridement Muscle / Fascia -Tissue Removed Muscle,Fascia -Post Debridement (cm) - Length 4 -Post Debridement (cm) - Width 3 -Post Debridement (cm) - Depth 3.8 -Total Square (Post) (cm) 12 -Area of Debridement (cm) - Length 4 -Area of Debridement (cm) - Width 3 -Total Square (Area) (cm) 12 -Tunneling No -Undermining/Tunneling No -Circular Undermining Yes -Wound/Ulcer Outcome Not Healed -Ulcer Cleansing Rinsed/ Irrigated with Saline -Foul Odor after Cleansing No -Bioengineered Tissue No -Bleeding Controlled with Pressure -Offloading No -Treatment Response Procedure Tolerated Well -Debridement - Muscle / Fascia, 1st No 20sq cm #1 Sacrum -Time 14:23 -Correct Patient Yes -Correct Side, Site, Position Yes -Correct Procedure Yes -Procedure Performed Yes -Type of Procedure Debridement -Clinical Debridement Muscle / Fascia -Tissue Removed Muscle,Fascia -Post Debridement (cm) - Length 7.5 -Post Debridement (cm) - Width 7 -Post Debridement (cm) - Depth 0.8 -Total Square (Post) (cm) 52.5 -Area of Debridement (cm) - Length 7.5 -Area of Debridement (cm) - Width 7 -Total Square (Area) (cm) 52.5 -Tunneling No -Undermining/Tunneling No -Circular Undermining No -Wound/Ulcer Outcome Not Healed -Ulcer Cleansing Rinsed/ Irrigated with Saline -Bioengineered Tissue No -Bleeding Controlled with Pressure -Offloading No -Treatment Response Procedure Tolerated Well -Debridement - Muscle / Fascia, 1st Yes 20sq cm -Debridement, Muscle/Fascia, ea addt'l 3 20sq cm or part thereof Pain Scale: 0-10 Numeric Is Patient Pain Free? Yes Wound debrided: Sacral ulcer Wound Grade/Stage: Stage IV Type of Debridement: Excisional debridement Anesthesia Used: 4% Lidocaine Solution and 5% Lidocaine Gel Depth: Down to and including healthy tissue, in the subcutaneous layer and to muscle Percentage of wound debrided: 100 Instrument Used: 7mm curette Tissue Removed: Subcutaneous tissue and slough, into the muscle. Severity: Fat Layer Exposed Amount of bleeding with debridement: Mild Bleeding Controlled with: Pressure and Compression and gauze Patient tolerated procedure: Patient tolerated procedure well Additional Wound Wound debrided: Ischial ulcer Laterality: Right Wound Grade/Stage: Stage IV Type of Debridement: Excisional debridement Anesthesia Used: 5% Lidocaine Gel Depth: Down to and including healthy tissue, in the subcutaneous layer and to muscle Percentage of wound debrided: 100 Instrument Used: 7mm curette and - (Scissors and pick ups) Tissue Removed: Subcutaneous tissue and slough, into the muscle. Severity: Fat Layer Exposed Amount of bleeding with debridement: Mild Bleeding Controlled with: Pressure Patient tolerated procedure: Patient tolerated procedure well Charges/Coding Visit Charges Office Visits / Consults: 81334 OV L4 Est (25 modifier) Procedures Integumentary [id number]: [id number] Jerilyn musc/fascia 20 sq cm/< Add On Codes: 86650 Jerilyn musc/fascia add-on (x3)
[2020-07-30 14:49] VITALS: BP 108/37; PULSE 104; RESP 16; TEMP 37.2; BMI 23.8
--- NOTE | 2020-07-30 15:21 | PCM.WC.PN ---
History of Present Illness Date of Service: 07/30/20 Chief Complaint: Sacral ulcer and now a new right ischial ulcer that started 1 month ago. History of Wound: 54 year old female was admitted on 07/11/20 and discharged on 07/13/20 for sepsis related to an infected decubitus ulcer. She was treated with IV Vancomycin and Zosyn. ID was consulted and she was discharged on Keflex and Flagyl x 7 days for a culture positive for Staphylococcus. She has been a paraplegic for 2.5 years after her back hardware broke. She also has a history of Renal cell carcinoma with metastasis and sees Dr. Valiente. She is on Cabometyx for that. She was referred to the wound center for further evaluation of her ulcers. She had been seeing a reconciliation specialist at the [facility] until she left several months ago. Her does her wound care for her. They most recently had been placing antibiotic ointment and covering with gauze. On the new right ischial ulcer he has used Dakin's the was switched to Santyl. She does sit in her wheelchair up to 12 hours a day while her is at work. They have someone come and help her out of bed in the morning and get her into her wheelchair. She has a new cushion on her wheelchair from the past several months. Wound care - Will start Dakins solution 0.25 moistened gauze to both ulcers. Cover with dry gauze daily. Wound culture on 07/24/20 of left ischial ulcer positive for Pseudomonas oryzihabitans and MRSE. Cultures of sacral ulcer positive for E.coli, Entercoccus faecalis, Staphylococcus haemolyticus. She was started Doxycycline, Cipro and Augmentin. Today she denies fever, chills and states she has a good appetite. Progress of Wound: Sacral ulcer is stable and beefy pink in color. Right Ischial ulcer has a large amount of slough. It is into the muscle. The bone is not currently exposed. Objective Data Objective Data Vital Signs: Vital Signs Temp Pulse Resp BP 99 F 104 H 16 108/37 L 07/30/20 14:49 07/30/20 14:49 07/30/20 14:49 07/30/20 14:49 Oxygen Delivery Method Room Air Weight: 148 lb Body Mass Index (BMI) 23.8 Lab / Micro Data Micro: Microbiology 07/25/20 14:26 Wound Abcess - Ischium Gram Stain - Final 07/25/20 14:26 Wound Abcess - Ischium Wound Culture - Final Pseudomonas oryzihabitans Staphylococcus epidermidis 07/25/20 14:26 Wound Abcess - Ischium Anaerobic Culture - Final 07/25/20 Unknown Wound Abcess - Sacral Gram Stain - Final 07/25/20 Unknown Wound Abcess - Sacral Wound Culture - Final Escherichia coli Enterococcus faecalis Staphylococcus haemolyticus 07/25/20 Unknown Wound Abcess - Sacral Anaerobic Culture - Final No anaerobic bacteria isolated. Charges/Coding Procedures Integumentary 111xxx-113xx: 24250 Jerilyn musc/fascia 20 sq cm/< Add On Codes: 61021 Jerilyn musc/fascia add-on (x2) Physical Exam Const alert and oriented x3 General Appearance: cooperative HEENT normocephalic Eyes PERRL Resp normal respiratory effort Cardio regular rate GI non-tender Extremity normal capillary refill Skin Rashes: no rashes Wound Narrative: Sacral ulcer is beefy pink and stable. Left ischial ulcer with slough, into the muscle, no bone exposure. Neuro CN's II-XII intact bilaterally Psych Appearance: grossly normal Debridement Note Debridement Note Post-Debridement Measurements and Additional Note: Post-Debridement Measurements/Treatment - Nurse 1 - General Ulcer Assessment Start: 07/24/20 13:20 Freq: Status: Active Protocol: BRITTA.NEIDA Activity Type Activity Date Activity User E-Sign Co-Sign Detail Recorded Client Recorded Date Recorded By Document 07/24/20 13:29 [id number] 07/24/20 13:49 Document 07/30/20 14:49 [facility] [id number] 07/30/20 14:53 [facility] 07/24/20 07/30/20 13:29 14:49 - Today's Visit Information Type of service Initial Visit Follow-up Visit (Physician/ENGINEERING 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 ) Arrival Mode Wheelchair Wheelchair Transfer Assistance Manual Manual Accompanied by Patient Identification Verified (Name & Yes Yes ) Patient Requires Transmission-Based No No Precautions Safety Precautions NA Height and Weight Height 5 ft 6 in Weight 148 lb Weight in Pounds 148.0 lbs Weight Measurement Method Estimated by Patient Body Mass Index (BMI) 23.8 23.8 BMI Classification Normal Normal BSA - Tatiana 1.76 Vital Signs Temperature (97.8 F-99.1 F) 96.8 F L 99 F Temperature Source Temporal Temporal Pulse Rate (60-100) 78 104 H Pulse Location Monitor Respiratory Rate (12-18) 18 16 Respiratory rate source Observation Oxygen Delivery Method Room Air Blood Pressure (90/60-120/80) 115/67 108/37 L Blood Pressure Mean (mm Hg) 83 60 Source Monitor Position Sitting Blood Pressure Location Left Arm History Since Last Visit- (Skip if this is Patient's initial visit) Have you changed medications since your No No last visit? Any new allergies or adverse reactions No No Had a fall/change in ADL's that may No No increase risk of falls Signs or symptoms of abuse and/or No No neglect since last visit Have you been in the hospital since your No No last visit? Has dressing in place as prescribed Yes Yes Has compression in place as prescribed N/A N/A Has offloadiing in place as prescribed N/A N/A Experienced any changes in pain level or No No management Left Footwear Regular Shoe Right Footwear Regular Shoe Pain Scale: 0-10 Numeric Is Patient Pain Free? Yes Yes - Nurse 1 - General Ulcer Measurement Start: 07/24/20 13:20 Freq: Status: Active Protocol: Activity Type Activity Date Activity User E-Sign Co-Sign Detail Recorded Client Recorded Date Recorded By Document 07/24/20 13:29 [id number] 07/24/20 13:49 Document 07/30/20 14:49 [facility] [id number] 07/30/20 14:53 [facility] 07/24/20 07/30/20 13:29 14:49 Wound Center Nurse 1 #2 Left ischium -Combined with other wound No No -Current Size (cm) - Length 3 5.5 -Current Size (cm) - Width 2 3.5 -Current Size (cm) - Depth 3.5 4.8 -Total Square Cm 6 19.25 -Date of Last Picture (Recall this 07/24/20 field) -Photo Taken Yes -Epithelialization None Present None Present -Tunneling Yes No -Tunneling Position (O'clock) 7 -Tunneling Distance (cm) 3.5 -Undermining/Tunneling Yes No -Undermining/Tunneling Starts (O'clock 5 ) -Undermining/Tunneling Ends (O'clock) 7 -Maximum Distance (cm) 1.5 -Circular Undermining No -Classification - Thickness Full Thickness with Exposed Support Structure -Classification - Pressure Ulcer Stage 3 -Exudate Amt Large Large -Exudate Type Yellow/Green Serosanguineous -Wound Margin Flat & Intact Distinct, Outline Attached -Granulation Amt Medium (34-66%) Small (1-33%) -Granulation Quality [place] Red -Slough/Fibrin Yes Yes -Necrosis Amt Medium (34-66%) Large (67-100%) -Necrotic Tissue Type Adherent Slough Adherent Slough -Texture (Annamaria-wound Skin Appearance) No Abnormality Assessed, Scarring -Moisture (Annamaria-wound Skin Appearance) No Abnormality Assessed -Color (Annamaria-wound Skin Appearance) No Abnormality Assessed -Temperature (Annamaria-wound Skin No Abnormality No Abnormality Appearance) (Pt Warm) (Pt Warm) -Tenderness on Palpation (Annamaria-wound No No Skin Appearance) -Ulcer Cleansing Rinsed/ Rinsed/ Irrigated with Irrigated with Saline Saline -Foul Odor after Cleansing No No -Anesthetic Used 4% Lidocaine Solution #1 Sacrum -Combined with other wound No No -Current Size (cm) - Length 6 6.5 -Current Size (cm) - Width 5 6.2 -Current Size (cm) - Depth 0.5 0.7 -Total Square Cm 30 40.30 -Date of Last Picture (Recall this 07/24/20 field) -Photo Taken Yes -Epithelialization None Present None Present -Tunneling No No -Undermining/Tunneling No No -Circular Undermining No No -Classification - Thickness Full Thickness with Exposed Support Structure -Classification - Pressure Ulcer Stage 3 -Exudate Amt Large Large -Exudate Type Yellow/Green Serosanguineous -Wound Margin Indistinct, Non Distinct, -Visible Outline Attached -Granulation Amt Medium (34-66%) Large (67-100%) -Granulation Quality Vin[place] Red -Slough/Fibrin Yes Yes -Necrosis Amt Medium (34-66%) Small (1-33%) -Necrotic Tissue Type Adherent Slough Adherent Slough -Texture (Annamaria-wound Skin Appearance) No Abnormality Assessed, Scarring -Moisture (Annamaria-wound Skin Appearance) No Abnormality Assessed -Color (Annamaria-wound Skin Appearance) No Abnormality Assessed -Temperature (Annamaria-wound Skin No Abnormality No Abnormality Appearance) (Pt Warm) (Pt Warm) -Tenderness on Palpation (Annamaria-wound No No Skin Appearance) -Ulcer Cleansing Rinsed/ Rinsed/ Irrigated with Irrigated with Saline Saline -Foul Odor after Cleansing No No -Anesthetic Used 4% Lidocaine Solution WC - Nurse 2 - General Ulcer CM Notes Start: 07/24/20 13:20 Freq: Status: Active Protocol: Activity Type Activity Date Activity User E-Sign Co-Sign Detail Recorded Client Recorded Date Recorded By Document 07/24/20 14:17 [id number] 07/24/20 14:30 Document 07/30/20 15:11 [id number] 07/30/20 15:16 07/24/20 07/30/20 14:17 15:11 Wound Center Nurse 2 #2 Left ischium -Time 14:18 15:11 -Correct Patient Yes Yes -Correct Side, Site, Position Yes Yes -Correct Procedure Yes Yes -Procedure Performed Yes Yes -Type of Procedure Debridement Debridement -Clinical Debridement Muscle / Fascia Muscle / Fascia -Tissue Removed Muscle,Fascia Muscle,Fascia -Post Debridement (cm) - Length 4 3.5 -Post Debridement (cm) - Width 3 3 -Post Debridement (cm) - Depth 3.8 4.8 -Total Square (Post) (cm) 12 10.5 -Area of Debridement (cm) - Length 4 3.5 -Area of Debridement (cm) - Width 3 3 -Total Square (Area) (cm) 12 10.5 -Tunneling No No -Undermining/Tunneling No No -Circular Undermining Yes No -Wound/Ulcer Outcome Not Healed Not Healed -Ulcer Cleansing Rinsed/ Rinsed/ Irrigated with Irrigated with Saline Saline -Foul Odor after Cleansing No No -Bioengineered Tissue No No -Bleeding Controlled with Pressure Pressure -Offloading No No -Treatment Response Procedure Procedure Tolerated Well Tolerated Well -Debridement - Muscle / Fascia, 1st No Yes 20sq cm -Debridement, Muscle/Fascia, ea addt'l 2 20sq cm or part thereof #1 Sacrum -Time 14:23 15:12 -Correct Patient Yes Yes -Correct Side, Site, Position Yes Yes -Correct Procedure Yes Yes -Procedure Performed Yes Yes -Type of Procedure Debridement Debridement -Clinical Debridement Muscle / Fascia Muscle / Fascia -Tissue Removed Muscle,Fascia Muscle,Fascia -Post Debridement (cm) - Length 7.5 5.5 -Post Debridement (cm) - Width 7 6 -Post Debridement (cm) - Depth 0.8 0.8 -Total Square (Post) (cm) 52.5 33.0 -Area of Debridement (cm) - Length 7.5 5.5 -Area of Debridement (cm) - Width 7 6 -Total Square (Area) (cm) 52.5 33.0 -Tunneling No No -Undermining/Tunneling No No -Circular Undermining No No -Wound/Ulcer Outcome Not Healed Not Healed -Ulcer Cleansing Rinsed/ Rinsed/ Irrigated with Irrigated with Saline Saline -Foul Odor after Cleansing No -Bioengineered Tissue No No -Bleeding Controlled with Pressure Pressure -Offloading No No -Treatment Response Procedure Procedure Tolerated Well Tolerated Well -Debridement - Subq, 1st 20sq cm No -Debridement - Muscle / Fascia, 1st Yes No 20sq cm -Debridement, Muscle/Fascia, ea addt'l 3 1 20sq cm or part thereof Pain Scale: 0-10 Numeric Is Patient Pain Free? Yes Yes Wound debrided: Ischial ulcer Laterality: Left Wound Grade/Stage: Stage IV Type of Debridement: Excisional debridement Anesthesia Used: 5% Lidocaine Gel Depth: Down to and including healthy tissue, in the subcutaneous layer and to muscle Percentage of wound debrided: 100 Instrument Used: 7mm curette Tissue Removed: Subcutaneous tissue and slough Severity: Fat Layer Exposed Amount of bleeding with debridement: Mild Bleeding Controlled with: Pressure Patient tolerated procedure: Patient tolerated procedure well Debridement Free Text: There continues to be a significant amount of nonviable tissue that is difficult to debride. Additional Wound Wound debrided: Sacral ulcer Laterality: Not Applicable Wound Grade/Stage: Stage IV Type of Debridement: Excisional debridement Anesthesia Used: 5% Lidocaine Gel Depth: Down to and including healthy tissue, in the subcutaneous layer and to muscle Percentage of wound debrided: 100 Instrument Used: 7mm curette Tissue Removed: Subcutaneous tissue and slough Severity: Fat Layer Exposed Amount of bleeding with debridement: Mild Bleeding Controlled with: Pressure Patient tolerated procedure: Patient tolerated procedure well Assessment/Plan Assessment/Plan (1) Sacral decubitus ulcer, stage IV: CODE(S): L89.154 - Pressure ulcer of sacral region, stage 4 (2) Decubitus ulcer of right ischium, stage 4: CODE(S): L89.314 - Pressure ulcer of right buttock, stage 4 (3) Paraplegia following spinal cord injury: CODE(S): G82.20 - Paraplegia, unspecified (4) Chronic pain syndrome: CODE(S): G89.4 - Chronic pain syndrome (5) Metastatic renal cell carcinoma to bone: CODE(S): C79.51 - Secondary malignant neoplasm of bone; C64.9 - Malignant neoplasm of unspecified kidney, except renal pelvis PLAN: Patient was seen and evaluated today at the wound center.? A subcutaneous debridement was performed and patient tolerated it well. Wound care will be Dakins 0.25% moistened gauze daily to both ulcers covered by gauze or ABDs. (Today at the wound center we will place Aquacel - Ag into both of her ulcers until they can get the Dakins solution. Wound culture obtained on 07/24/20 of left ischial ulcer positive for Pseudomonas oryzihabitans and MRSE.? Cultures of sacral ulcer positive for E.coli, Enterococcus faecalis, Staphylococcus haemolyticus.? She was started Doxycycline, Cipro and Augmentin. Encouraged patient not to sit in her wheelchair for 12 hours.? If she is in her wheelchair, then she must shift her weight every 20 minutes so she is not sitting in the same place all the time. She most likely will need operative debridement of the right ischial ulcer.? Will refer her to Dr. Mullen on 08/13/20 for surgical evaluation.? She will follow up in two weeks with Dr. Mullen.? She will call or go to the ED if her symptoms worsen over the next week.? ?
== END 2020-08-06 23:59 ==
LOC: WC 14:30
PROVIDERS: PCP Family Medicine; Referring Provider Nurse Practitioner Family; Visit Provider Nurse Practitioner Family
DX: L89.214 Pressure ulcer of right hip, stage 4 (principal); L89.154 Pressure ulcer of sacral region, stage 4; L89.314 Pressure ulcer of right buttock, stage 4; G82.20 Paraplegia, unspecified; C79.51 Secondary malignant neoplasm of bone; C64.9 Malignant neoplasm of unspecified kidney, except renal pelvis; G89.4 Chronic pain syndrome; B95.2 Enterococcus as the cause of diseases classified elsewhere; I25.2 Old myocardial infarction; Z79.01 Long term (current) use of anticoagulants; Z85.528 Personal history of other malignant neoplasm of kidney
CPT/HCPCS: 11043; 11046; 87070; 87075; 87077; 87186; 87205; 99213; G0463

== ENCOUNTER 2020-08-27 13:30 | Outpatient (RCR) | payer MEDICARE, SELFPAY ==
[2020-08-07 00:41] VITALS: BP 108/37; PULSE 104; RESP 16; TEMP 37.2
[2020-08-13 14:28] VITALS: BP 115/74; PULSE 89; TEMP 36.6; BMI 23.8
--- NOTE | 2020-08-13 15:49 | PCM.WC.PN ---
History of Present Illness Date of Service: 08/13/20 Chief Complaint: Sacral pressure sore, Stage IV, and left ischial pressure sore, Stage IV. History of Wound: 54 year old female with a history of renal cancer and metastasis to the bone presented [facility] with a sacral pressure sore and left ischial pressure sore. was admitted on 07/11/20 and discharged on 07/13/20 for sepsis related to an infected decubitus ulcer. She has been a paraplegic for 2.5 years after her back hardware broke. Her Oncologist is Dr. Valiente and she is on Cabometyx. Wound care has been with Dakin's dressing changes. She does sit in her wheelchair up to 12 hours a day while her is at work. They have someone come and help her out of bed in the morning and get her into her wheelchair. She has a new cushion on her wheelchair from the past several months. Wound culture was done on 07/24/20. The left ischial pressure sore was positive for Pseudomonas oryzihabitans and MRSE. The sacral pressure sore was positive for E.coli, Entercoccus faecalis, Methicillin resistant Staphylococcus haemolyticus. She was started Doxycycline, Cipro and Augmentin. Today she denies fever, chills and states she has a good appetite. Encourage nutritional supplementation with protein to help the healing process. Progress of Wound: Slightly improved. Objective Data Objective Data Vital Signs: Vital Signs Temp Pulse Resp BP 97.9 F 89 16 115/74 08/13/20 14:28 08/13/20 14:28 08/07/20 00:41 08/13/20 14:28 Weight: 148 lb Body Mass Index (BMI) 23.8 Charges/Coding Procedures Integumentary 111xxx-113xx: 31580 Jerilyn musc/fascia 20 sq cm/< (ICD-10 - L89.154, L89.214, G82.20, C64.9, C79.51) Add On Codes: 87772 Jerilyn musc/fascia add-on (x2 Units ICD-10 - L89.154, L89.214, G82.20, C64.9, C79.51) Debridement Note Debridement Note Post-Debridement Measurements and Additional Note: Post-Debridement Measurements/Treatment WC - Nurse 1 - General Ulcer Assessment Start: 08/13/20 08:58 Freq: Status: Active Protocol: [email or web address] Activity Type Activity Date Activity User E-Sign Co-Sign Detail Recorded Client Recorded Date Recorded By Document 08/13/20 14:28 CLAUS [id number] 08/13/20 14:45 CLAUS 08/13/20 14:28 - Today's Visit Information Type of service 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 Any new allergies or adverse reactions No Had a fall/change in ADL's that may No increase risk of falls Signs or symptoms of abuse and/or No neglect since last visit Have you been in the hospital since your No last visit? Has dressing in place as prescribed Yes Has compression in place as prescribed N/A Has offloadiing in place as prescribed N/A Experienced any changes in pain level or No management Left Footwear Regular Shoe Right Footwear Regular Shoe Pain Scale: 0-10 Numeric Is Patient Pain Free? Yes - Nurse 1 - General Ulcer Measurement Start: 08/13/20 08:58 Freq: Status: Active Protocol: Activity Type Activity Date Activity User E-Sign Co-Sign Detail Recorded Client Recorded Date Recorded By Document 08/13/20 14:28 KR [id number] 08/13/20 14:45 CLAUS 08/13/20 14:28 Wound Center Nurse 1 #2 Left ischium -Current Size (cm) - Length 5 -Current Size (cm) - Width 3 -Current Size (cm) - Depth 3.3 -Total Square Cm 15 -Exudate Amt Medium -Exudate Type Serosanguineous -Wound Margin Distinct, Outline Attached -Granulation Amt Medium (34-66%) -Granulation Quality Red -Necrosis Amt Medium (34-66%) -Necrotic Tissue Type Adherent Slough -Texture (Annamaria-wound Skin Appearance) Assessed, Scarring -Moisture (Annamaria-wound Skin Appearance) No Abnormality, Assessed -Color (Annamaria-wound Skin Appearance) No Abnormality, Assessed -Temperature (Annamaria-wound Skin No Abnormality Appearance) (Pt Warm) -Tenderness on Palpation (Annamaria-wound No Skin Appearance) -Ulcer Cleansing Rinsed/ Irrigated with Saline -Foul Odor after Cleansing No -Anesthetic Used 4% Lidocaine Solution #1 Sacrum -Current Size (cm) - Length 4.4 -Current Size (cm) - Width 5.5 -Current Size (cm) - Depth 0.3 -Total Square Cm 24.20 -Exudate Amt Medium -Exudate Type Serosanguineous -Wound Margin Distinct, Outline Attached -Granulation Amt Medium (34-66%) -Granulation Quality Red -Necrosis Amt Medium (34-66%) -Necrotic Tissue Type Adherent Slough -Texture (Annamaria-wound Skin Appearance) Assessed, Scarring -Moisture (Annamaria-wound Skin Appearance) No Abnormality, Assessed -Color (Annamaria-wound Skin Appearance) No Abnormality, Assessed -Temperature (Annamaria-wound Skin No Abnormality Appearance) (Pt Warm) -Tenderness on Palpation (Annamaria-wound No Skin Appearance) -Ulcer Cleansing Rinsed/ Irrigated with Saline -Foul Odor after Cleansing No -Anesthetic Used 4% Lidocaine Solution WC - Nurse 2 - General Ulcer CM Notes Start: 08/13/20 08:58 Freq: Status: Active Protocol: Activity Type Activity Date Activity User E-Sign Co-Sign Detail Recorded Client Recorded Date Recorded By Document 08/13/20 15:10 ESTRELLA [id number] 08/13/20 15:15 Edit Result 08/13/20 15:10 JF (1) [id number] 08/13/20 15:16 JF (1) #1 Sacrum - Debridement, Muscle/Fascia, ea addt'l 1 => 20sq cm or part thereof 08/13/20 15:10 Wound Center Nurse 2 #2 Left ischium -Time 15:10 -Correct Patient Yes -Correct Side, Site, Position Yes -Correct Procedure Yes -Procedure Performed Yes -Type of Procedure Debridement -Clinical Debridement Muscle / Fascia -Tissue Removed Muscle,Fascia -Post Debridement (cm) - Length 5 -Post Debridement (cm) - Width 3.1 -Post Debridement (cm) - Depth 3.4 -Total Square (Post) (cm) 15.5 -Area of Debridement (cm) - Length 5 -Area of Debridement (cm) - Width 3.1 -Total Square (Area) (cm) 15.5 -Tunneling No -Undermining/Tunneling No -Circular Undermining No -Wound/Ulcer Outcome Not Healed -Ulcer Cleansing Rinsed/ Irrigated with Saline -Foul Odor after Cleansing No -Bioengineered Tissue No -Bleeding Controlled with Pressure -Offloading No -Treatment Response Procedure Tolerated Well -Debridement - Muscle / Fascia, 1st Yes 20sq cm -Debridement, Muscle/Fascia, ea addt'l 2 20sq cm or part thereof #1 Sacrum -Time 15:11 -Correct Patient Yes -Correct Side, Site, Position Yes -Correct Procedure Yes -Procedure Performed Yes -Type of Procedure Debridement -Clinical Debridement Muscle / Fascia -Tissue Removed Muscle,Fascia -Post Debridement (cm) - Length 4.5 -Post Debridement (cm) - Width 5.5 -Post Debridement (cm) - Depth 0.3 -Total Square (Post) (cm) 24.75 -Area of Debridement (cm) - Length 4.5 -Area of Debridement (cm) - Width 5.5 -Total Square (Area) (cm) 24.75 -Tunneling No -Undermining/Tunneling No -Circular Undermining No -Wound/Ulcer Outcome Not Healed -Ulcer Cleansing Rinsed/ Irrigated with Saline -Foul Odor after Cleansing No -Bioengineered Tissue No -Bleeding Controlled with Pressure -Offloading No -Treatment Response Procedure Tolerated Well -Debridement - Muscle / Fascia, 1st No 20sq cm Pain Scale: 0-10 Numeric Is Patient Pain Free? Yes - Nurse 3 - General Ulcer D/C NN Start: 08/13/20 08:58 Freq: Status: Active Protocol: Activity Type Activity Date Activity User E-Sign Co-Sign Detail Recorded Client Recorded Date Recorded By Document 08/13/20 15:25 ESTRELLA [id number] 08/13/20 15:26 ESTRELLA 08/13/20 15:25 Wound Care Nurse 3 #2 Left ischium -Ulcer Cleansing Rinsed/ Irrigated with Saline -Foul Odor after Cleansing No -Primary Dressing Applied Aquacel Extra -Primary Dressing Covered/Secured with Dry Gauze, Secured with Tape -Aquacel Extra 1 #1 Sacrum -Ulcer Cleansing Rinsed/ Irrigated with Saline -Foul Odor after Cleansing No -Primary Dressing Applied Aquacel Extra -Primary Dressing Covered/Secured with Dry Gauze, Secured with Tape -Aquacel Extra 0 Pain Scale: 0-10 Numeric Is Patient Pain Free? Yes WC - Visit Discharge Discharge Condition Stable Ambulatory Status Wheelchair Transportation Private Auto Medication Reconcilliation completed & Yes provided to patient/care provider Clinical Summary of Care Provided Yes Wound debrided: #1 Sacral area. Laterality: Not Applicable Wound Grade/Stage: IV. Type of Debridement: Excisional debridement Anesthesia Used: 4% Lidocaine Solution Depth: Down to and including healthy tissue, in the subcutaneous layer and to muscle Percentage of wound debrided: 100 Instrument Used: 5mm curette Tissue Removed: subcutaneous tissue and muscle. Severity: Fat Layer Exposed (muscle is exposed.) Amount of bleeding with debridement: Mild Bleeding Controlled with: Pressure and Compression and gauze Patient tolerated procedure: Patient tolerated procedure well Additional Wound Wound debrided: #2 Left ischial area. Laterality: Left Wound Grade/Stage: IV. Type of Debridement: Excisional debridement Anesthesia Used: 4% Lidocaine Solution Depth: Down to and including healthy tissue, in the subcutaneous layer, to muscle and to bone (bone is palpable but not exposed.) Percentage of wound debrided: 100 Instrument Used: 5mm curette Tissue Removed: subcutaneous tissue and muscle. Severity: Fat Layer Exposed (muscle is exposed. bone is palpable but not exposed.) Amount of bleeding with debridement: Mild Bleeding Controlled with: Pressure and Compression and gauze Patient tolerated procedure: Patient tolerated procedure well Assessment/Plan Assessment/Plan (1) Sacral decubitus ulcer, stage IV: CODE(S): L89.154 - Pressure ulcer of sacral region, stage 4 (2) Pressure ulcer of right hip, stage 4: CODE(S): L89.214 - Pressure ulcer of right hip, stage 4 (3) Paraplegia following spinal cord injury: CODE(S): G82.20 - Paraplegia, unspecified (4) Metastatic renal cell carcinoma to bone: CODE(S): C79.51 - Secondary malignant neoplasm of bone; C64.9 - Malignant neoplasm of unspecified kidney, except renal pelvis (5) Malignant neoplasm of unspecified kidney, except renal pelvis: CODE(S): C64.9 - Malignant neoplasm of unspecified kidney, except renal pelvis PLAN: Continue Dakin's dressing changes daily to both pressure sores. Continue Doxycycline, Ciprofloxacin, and Augmentin for wound cultures from 07/24/20. The left ischial pressure sore was positive for Pseudomonas oryzihabitans and MRSE. The sacral pressure sore was positive for E. coli, Enterococcus faecalis, and Methicillin resistant Staphylococcus haemolyticus. Encourage nutritional supplementation with protein to help the healing process. Will check a Prealbumin at the time of her surgery. Recommend operative excision of these pressure sores. For the left ischial pressure sore, there is extension to the bone so a partial ostectomy for osteomyelitis will be done. A positive culture will necessitate antibiotic therapy. If there is tracking of the sacral pressure sore down to the bone, then a partial ostectomy will be done as well. Surgery will be done under general anesthesia with a surgical observation overnight stay in the hospital. The wound VAC will be placed then. After the infection has been treated, can then plan on the second stage which is wound closure with myocutaneous flaps. At the time of flap surgery, the Prealbumin needs to be maximized to promote healing. Would reconstruct the pressure sores on separate occasions because of the length of time needed for the surgeries. After surgery, she will need to be on complete bedrest for 6 weeks. If she develops stool contamination during this process, then a diverting colostomy to allow a better chance for healing. Preoperatively will need a CT Pelvis. It can be obtained at her next visit in 2 weeks. Will schedule the surgery after that. At the time of surgery, if Pseudomonas or resistant Staph is still present, then an additional debridement would be necessary before proceeding with the flap since these organisms can be destructive to the muscle flap. Patient was informed of the risks and complications of the procedure including alternatives to surgery. These were discussed with the patient personally. Patient voices understanding and wishes to proceed. Followup 2 weeks.
[2020-08-27 13:50] VITALS: BP 99/61; PULSE 96; RESP 16; TEMP 36.4; BMI 23.8
--- NOTE | 2020-08-27 14:43 | PN.PCM_ITS ---
History of Present Illness Date of Service: 08/27/20 Chief Complaint: Sacral pressure sore, Stage IV, and left ischial pressure sore, Stage IV. History of Wound: 54 year old female with a history of renal cancer and metastasis to the bone presented to the Wound Center with a sacral pressure sore and left ischial pressure sore. was admitted on 07/11/20 and discharged on 07/13/20 for sepsis related to an infected decubitus ulcer. She has been a paraplegic for 2.5 years after her back hardware broke. Her Oncologist is Dr. Valiente and she is on Cabometyx. Wound care has been with Dakin's dressing changes. She does sit in her wheelchair up to 12 hours a day while her is at work. They have someone come and help her out of bed in the morning and get her into her wheelchair. She has a new cushion on her wheelchair from the past several months. Wound culture was done on 07/24/20. The left ischial pressure sore was positive for Pseudomonas oryzihabitans and MRSE. The sacral pressure sore was positive for E.coli, Entercoccus faecalis, Methicillin resistant Staphylococcus hae molyticus. She was started Doxycycline, Cipro and Augmentin. Today she denies fever, chills and states she has a good appetite. Encourage nutritional supplementation with protein to help the healing process. Progress of Wound: Slightly improved. Objective Data Objective Data Vital Signs: Vital Signs Temp Pulse Resp BP 97.5 F L 96 16 99/61 08/27/20 13:50 08/27/20 13:50 08/27/20 13:50 08/27/20 13:50 Oxygen Delivery Method Room Air Weight: 148 lb Body Mass Index (BMI) 23.8 Charges/Coding Procedures Integumentary 111xxx-113xx: [id number] Jerilyn musc/fascia 20 sq cm/< Add On Codes: 83823 Jerilyn musc/fascia add-on Physical Exam Const alert and oriented x3 General Appearance: cooperative HEENT normocephalic Eyes PERRL Lymph Lymphatic: no lymphedema noted Resp normal respiratory effort Cardio regular rate GI non-tender Extremity normal capillary refill General Extremity: Negative for edema Skin Wound Narrative: Left ischial ulcer and sacral ulcer are stable and pink. Neuro CN's II-XII intact bilaterally Psych Appearance: grossly normal Debridement Note Debridement Note Post-Debridement Measurements and Additional Note: Post-Debridement Measu rements/Treatment - Nurse 1 - General Ulcer Assessment Start: 08/13/20 08:58 Freq: Status: Active Protocol: YOLA Activity Type Activity Date Activity User E-Sign Co-Sign Detail Recorded Client Recorded Date Recorded By Document 08/13/20 14:28 KR [id number] 08/13/20 14:45 KR Document 08/27/20 13:50 [facility] [id number] 08/27/20 14:04 [facility] 08/13/20 08/27/20 14:28 13:50 WC - Today's Visit Information Type of service Follow-up Visit Follow-up Visit (Physician/DIGITAL STRATEGY DIRECTOR (Physician/DIGITAL STRATEGY DIRECTOR ) ) Arrival Mode Ambulatory, Wheelchair Wheelchair Transfer Assistance Manual Transfer Assist (Other) transfers Accompanied by Patient Identification Verified (Name & Yes Yes ) Patient Requires Transmission-Based No Precautions Height and Weight Body Mass Index (BMI) 23.8 23.8 BMI Classification Normal Normal Vital Signs Temperature (97.8 F-99.1 F) 97.9 F 97.5 F L Temperature Source Temporal Temporal Pulse Rate (60-100) 89 96 Pulse Location Monitor Monitor Respiratory Rate (12-18) 16 Respiratory rate source Observation Oxygen Delivery Method Room Air Blood Pressure (90/60-120/80) 115/74 99/61 Blood Pressure Mean (mm Hg) 87 73 Source Monitor Monitor Position Sitting Sitting Blood Pressure Location Right Arm Left Arm History Since Last Visit- (Skip if this is Patient's initial visit) Have you changed medications since your No No last visit? Any new allergies or adverse reactions No No Had a fall/change in ADL's that may No No increase risk of falls Signs or symptoms of abuse and/or No No neglect since last visit Have you been in the hospital since your No No last visit? Has dressing in place as prescribed Yes Yes Has compression in place as prescribed N/A N/A Has offloadiing in place as prescribed N/A N/A Experienced any changes in pain level or No No management Left Footwear Regular Shoe Regular Shoe Right Footwear Regular Shoe Regular Shoe Pain Scale: 0-10 Numeric Is Patient Pain Free? Yes Yes BRITTA Tang Nurse 1 - General Ulcer Measurement Start: 08/13/20 08:58 Freq: Status: Active Protocol: Activity Type Activity Date Activity User E-Sign Co-Sign Detail Recorded Client Recorded Date Recorded By Document 08/13/20 14:28 [id number] 08/13/20 14:45 KR Document 08/27/20 13:50 [facility] [id number] 08/27/20 14:04 [facility] 08/13/20 08/27/20 14:28 13:50 Wound Center Nurse 1 #2 Left ischium -Combined with other wound No -Current Size (cm) - Length 5 2.5 -Current Size (cm) - Width 3 3.8 -Current Size (cm) - Depth 3.3 3.5 -Total Square Cm 15 9.50 -Photo Taken No -Epithelialization None Present -Tunneling No -Undermining/Tunneling No -Circular Undermining No -Exudate Amt Medium Large -Exudate Type Serosanguineous Serosanguineous -Wound Margin Distinct, Distinct, Outline Outline Attached Attached -Granulation Amt Medium (34-66%) Large (67-100%) -Granulation Quality Red Red -Slough/Fibrin Yes -Necrosis Amt Medium (34-66%) Medium (34-66%) -Necrotic Tissue Type Adherent Slough Adherent Slough -Texture (Annamaria-wound Skin Appearance) Assessed, Assessed Scarring -Moisture (Annamaria-wound Skin Appearance) No Abnormality, Assessed Assessed -Color (Annamaria-wound Skin Appearance) No Abnormality, Assessed Assessed -Temperature (Annamaria-wound Skin No Abnormality No Abnormality Appearance) (Pt Warm) (Pt Warm) -Tenderness on Palpation (Annamaria-wound No No Skin Appearance) -Ulcer Cleansing Rinsed/ Rinsed/ Irrigated with Irrigated with Saline Saline -Foul Odor after Cleansing No No -Anesthetic Used 4% Lidocaine 4% Lidocaine Solution Solution #1 Sacrum -Combined with other wound No -Current Size (cm) - Length 4.4 4.1 -Current Size (cm) - Width 5.5 3.7 -Current Size (cm) - Depth 0.3 0.2 -Total Square Cm 24.20 15.17 -Photo Taken No -Epithelialization Small 1-33% -Tunneling No -Undermining/Tunneling No -Circular Undermining No -Exudate Amt Medium Medium -Exudate Type Serosanguineous Serosanguineous -Wound Margin Distinct, Distinct, Outline Outline Attached Attached -Granulation Amt Medium (34-66%) Large (67-100%) -Granulation Quality Red Red -Slough/Fibrin Yes -Necrosis Amt Medium (34-66%) Small (1-33%) -Necrotic Tissue Type Adherent Slough Adherent Slough -Texture (Annamaria-wound Skin Appearance) Assessed, Assessed, Scarring Scarring -Moisture (Annamaria-wound Skin Appearance) No Abnormality, No Abnormality Assessed -Color (Annamaria-wound Skin Appearance) No Abnormality, Assessed Assessed -Temperature (Annamaria-wound Skin No Abnormality No Abnormality Appearance) (Pt Warm) (Pt Warm) -Tenderness on Palpation (Annamaria-wound No No Skin Appearance) -Ulcer Cleansing Rinsed/ Rinsed/ Irrigated with Irrigated with Saline Saline -Foul Odor after Cleansing No No -Anesthetic Used 4% Lidocaine 4% Lidocaine Solution Solution WC - Nurse 2 - General Ulcer CM Notes Start: 08/13/20 08:58 Freq: Status: Active Protocol: Activity Type Activity Date Activity User E-Sign Co-Sign Detail Recorded Client Recorded Date Recorded By Document 08/13/20 15:10 [id number] 08/13/20 15:15 Edit Result 08/13/20 15:10 JF (1) [id number] 08/13/20 15:16 JF Document 08/27/20 14:26 [id number] 08/27/20 14:31 JF (1) #1 Sacrum - Debridement, Muscle/Fascia, ea addt'l 1 => 20sq cm or part thereof 08/13/20 08/27/20 15:10 14:26 Wound Center Nurse 2 #2 Left ischium -Time 15:10 14:26 -Correct Patient Yes Yes -Correct Side, Site, Position Yes Yes -Correct Procedure Yes Yes -Procedure Performed Yes Yes -Type of Procedure Debridement Debridement -Clinical Debridement Muscle / Fascia Muscle / Fascia -Tissue Removed Muscle,Fascia Muscle,Fascia -Post Debridement (cm) - Length 5 5.6 -Post Debridement (cm) - Width 3.1 3.5 -Post Debridement (cm) - Depth 3.4 4.7 -Total Square (Post) (cm) 15.5 19.60 -Area of Debridement (cm) - Length 5 5.6 -Area of Debridement (cm) - Width 3.1 3.5 -Total Square (Area) (cm) 15.5 19.60 -Tunneling No No -Undermining/Tunneling No No -Circular Undermining No No -Wound/Ulcer Outcome Not Healed Not Healed -Ulcer Cleansing Rinsed/ Rinsed/ Irrigated with Irrigated with Saline Saline -Foul Odor after Cleansing No No -Bioengineered Tissue No No -Bleeding Controlled with Pressure Pressure -Offloading No No -Treatment Response Procedure Procedure Tolerated Well Tolerated Well -Debridement - Muscle / Fascia, 1st Yes Yes 20sq cm -Debridement, Muscle/Fascia, ea addt'l 2 1 20sq cm or part thereof #1 Sacrum -Time 15:11 14:27 -Correct Patient Yes Yes -Correct Side, Site, Position Yes Yes -Correct Procedure Yes Yes -Procedure Performed Yes Yes -Type of Procedure Debridement Debridement -Clinical Debridement Muscle / Fascia Muscle / Fascia -Tissue Removed Muscle,Fascia Muscle,Fascia -Post Debridement (cm) - Length 4.5 4 -Post Debridement (cm) - Width 5.5 5 -Post Debridement (cm) - Depth 0.3 0.6 -Total Square (Post) (cm) 24.75 20 -Area of Debridement (cm) - Length 4.5 4 -Area of Debridement (cm) - Width 5.5 5 -Total Square (Area) (cm) 24.75 20 -Tunneling No No -Undermining/Tunneling No No -Circular Undermining No No -Wound/Ulcer Outcome Not Healed Not Healed -Ulcer Cleansing Rinsed/ Rinsed/ Irrigated with Irrigated with Saline Saline -Foul Odor after Cleansing No No -Bioengineered Tissue No No -Bleeding Controlled with Pressure Pressure -Offloading No No -Treatment Response Procedure Procedure Tolerated Well Tolerated Well -Debridement - Muscle / Fascia, 1st No No 20sq cm Pain Scale: 0-10 Numeric Is Patient Pain Free? Yes Yes - Nurse 3 - General Ulcer D/C NN Start: 08/13/20 08:58 Freq: Status: Active Protocol: Activity Type Activity Date Activity User E-Sign Co-Sign Detail Recorded Client Recorded Date Recorded By Document 08/13/20 15:25 ESTRELLA [id number] 08/13/20 15:26 ESTRELLA 08/13/20 15:25 Wound Care Nurse 3 #2 Left ischium -Ulcer Cleansing Rinsed/ Irrigated with Saline -Foul Odor after Cleansing No -Primary Dressing Applied Aquacel Extra -Primary Dressing Covered/Secured with Dry Gauze, Secured with Tape -Aquacel Extra 1 #1 Sacrum -Ulcer Cleansing Rinsed/ Irrigated with Saline -Foul Odor after Cleansing No -Primary Dressing Applied Aquacel Extra -Primary Dressing Covered/Secured with Dry Gauze, Secured with Tape -Aquacel Extra 0 Pain Scale: 0-10 Numeric Is Patient Pain Free? Yes WC - Visit Discharge Discharge Condition Stable Ambulatory Status Wheelchair Transportation Private Auto Medication Reconcilliation completed & Yes provided to patient/care provider Clinical Summary of Care Provided Yes Wound debrided: Left ischial ulcer Laterality: Left Type of Debridement: Excisional debridement and Selective debridement Anesthesia Used: 4% Lidocaine Solution Depth: Down to and including healthy tissue, in the subcutaneous layer and to muscle Percentage of wound debrided: 100 Instrument Used: 7mm curette Tissue Removed: Subcutaneous tissue and slough, into the muscle. Severity: Fat Layer Exposed Amount of bleeding with debridement: Mild Bleeding Controlled with: Pressure Patient tolerated procedure: Patient tolerated procedure well Additional Wound Wound debrided: Sacral ulcer Wound Grade/Stage: Stage IV Type of Debridement: Excisional debridement Anesthesia Used: 5% Lidocaine Gel Depth: Down to and including healthy tissue, in the subcutaneous layer and to muscle Percentage of wound debrided: 100 Instrument Used: 7mm curette Tissue Removed: Subcutaneous tissue and slough, into the muscle. Severity: Fat Layer Exposed Amount of bleeding with debridement: Mild Bleeding Controlled with: Pressure Patient tolerated procedure: Patient tolerated procedure well Assessment/Plan Assessment/Plan (1) Sacral decubitus ulcer, stage IV: CODE(S): L89.154 - Pressure ulcer of sacral region, stage 4 (2) Pressure sore of left ischium, stage 4: CODE(S): L89.324 - Pressure ulcer of left buttock, stage 4 (3) Paraplegia following spinal cord injury: CODE(S): G82.20 - Paraplegia, unspecified (4) Chronic pain syndrome: CODE(S): G89.4 - Chronic pain syndrome (5) Metastatic renal cell carcinoma to bone: CODE(S): C79.51 - Secondary malignant neoplasm of bone; C64.9 - Malignant neoplasm of unspecified kidney, except renal pelvis PLAN: Patient was seen and evaluated today at the wound center. A debridement was performed and patient tolerated it well. Wound care will be Dakins 0.25% moistened gauze daily to both ulcers covered by gauze or ABDs. (Today at the wound center we will place Aquacel - Ag into both of her ulcers. Wound culture obtained on 07/24/20 of left ischial ulcer positive for Pseudomonas oryzihabitans and MRSE. Cultures of sacral ulcer positive for E.coli, Enterococcus faecalis, Staphylococcus haemolyticus. She was started Doxycycline, Cipro and Augmentin. Encouraged patient not to sit in her wheelchair for 12 hours. If she is in her wheelchair, then she must shift her weight every 20 minutes so she is not sitting in the same place all the time. She most likely will need operative debridement of the right ischial ulcer. CT of pelvis scheduled for today. Follow up 3 weeks.
== END 2020-09-05 23:59 ==
LOC: WC 13:30
PROVIDERS: PCP Family Medicine; Referring Provider Nurse Practitioner Family; Visit Provider Nurse Practitioner Family
DX: L89.324 Pressure ulcer of left buttock, stage 4 (principal); L89.154 Pressure ulcer of sacral region, stage 4; C64.9 Malignant neoplasm of unspecified kidney, except renal pelvis; G82.20 Paraplegia, unspecified; C79.51 Secondary malignant neoplasm of bone
CPT/HCPCS: 11043; 11046

== ENCOUNTER → 2020-08-27 14:56 | Outpatient (CLI) | payer MEDICARE, SELFPAY ==
[2020-08-16 15:05] VITALS: BMI 23.7
[2020-08-27 13:50] VITALS: BMI 23.8
--- NOTE | 2020-08-27 14:58 | ECHODONC_ITS ---
Reason For Study: CMP Procedure This was a 2D Doppler, Color Flow transthoracic echocardiogram. Myocardial strain analysis was performed in this exam to aid in the assessment of cardiac function. Exam performed in department. Left Ventricle Normal LV size. Left ventricular systolic function is lower limits of normal. The estimated ejection fraction is 50 %. No regional wall motion abnormalities noted. Right Ventricle Normal RV size. Normal systolic function. Atria Normal left atrium. Normal right atrium. Mitral Valve Normal mitral valve. Tricuspid Valve Normal tricuspid valve. Aortic Valve Normal aortic valve. Trisinus/trileaflet aortic valve. Pulmonic Valve Normal pulmonic valve. Great Vessels Normal aortic root. The pulmonary artery is normal size. Normal inferior vena cava. Pericardium/Pleural No pericardial effusion. MMode/2D Measurements & Calculations LVIDd: 3.5 cm IVSd: 0.77 cm LA dimension: 3.2 cm LVIDs: 2.9 cm LVPWd: 0.74 cm RVDd: 3.2 cm FS: 18.2 % LAV(MOD-bp): 42.4 ml LVAd ap4: 25.8 cm2 SV(MOD-sp4): 37.9 ml LAV(MOD-bp) Indexed: 24.1 ml/m2 LVLd ap4: 7.5 cm LAV(MOD-sp2): 39.3 ml EDV(MOD-sp4): 74.6 ml LAV(MOD-sp4): 45.2 ml EDV(sp4-el): 75.8 ml LVAs ap4: 16.8 cm2 LVLs ap4: 6.4 cm ESV(MOD-sp4): 36.7 ml ESV(sp4-el): 37.2 ml EF(MOD-sp4): 50.8 % EF(sp4-el): 50.9 % SV(sp4-el): 38.5 ml LA A4 area: 17.5 cm2 RA A4 area: 13.0 cm2 Time Measurements MV dec time: 0.26 sec Doppler Measurements & Calculations MV E max alek: 65.2 cm/sec Lat Peak E' Alek: 12.9 cm/sec Med Peak E' Alek: 6.9 cm/sec MV A max alek: 103.5 cm/sec E/E' lat: 5.1 E/E' med: 9.4 MV E/A: 0.63 MV V2 max: 95.9 cm/sec MV P1/2t max alek: 74.0 cm/sec Ao V2 max: 135.9 cm/sec MV max P.7 mmHg MV P1/2t: 71.9 msec Ao max P.4 mmHg MV V2 mean: 55.3 cm/sec MV mean P.4 mmHg MV dec slope: 301.3 cm/sec2 MV V2 VTI: 23.2 cm MVA(P1/2t): 3.1 cm2 LV V1 max: 130.6 cm/sec PA V2 max: 101.1 cm/sec LV V1 max P.8 mmHg ECHO/ONC Echo Complete Interpretation Summary Normal LV size. Left ventricular systolic function is lower limits of normal. The estimated ejection fraction is 50 %. The global longitudinal strain is borderline abnormal. The global longitudinal strain = -16.9% (abnormal). The prior global longitudinal strain was -17.8 % . Compared to prev ious study, the left ventricular systolic function is the same.. Ordering Physician: Brad Zamora Referring Physician: Aaron Chand Performed By: Chapo Pelaez RCS
== END ==
PROVIDERS: PCP Family Medicine; Referring Provider Internal Medicine Cardiovascular Disease; Visit Provider Internal Medicine Cardiovascular Disease
DX: I34.0 Nonrheumatic mitral (valve) insufficiency (principal); L89.154 Pressure ulcer of sacral region, stage 4; Z86.14 Personal history of Methicillin resistant Staphylococcus aureus infection; G82.20 Paraplegia, unspecified; L89.324 Pressure ulcer of left buttock, stage 4; C64.9 Malignant neoplasm of unspecified kidney, except renal pelvis; C79.51 Secondary malignant neoplasm of bone
CPT/HCPCS: 11043; 11046; 93306; 93356

== ENCOUNTER → 2020-09-13 | Outpatient (CLI) | payer MEDICARE, SELFPAY ==
[2020-08-27 17:34] VITALS: BMI 23.7
== END | disposition home or self-care (01) ==
LOC: LABSPEC 16:05
PROVIDERS: PCP Family Medicine; Visit Provider Family Medicine
DX: A41.2 Sepsis due to unspecified staphylococcus (principal)
CPT/HCPCS: 87070; 87075; 87077; 87186; 87205

== ENCOUNTER 2020-09-19 16:52 | Inpatient (IN) | payer MEDICARE, SELFPAY ==
[2020-08-27 17:34] VITALS: BMI 23.7
[2020-09-17 14:37] LABS: Bacteria 0 SEEN /hpf (None Seen); Mucous, Urine 0 SEEN /hpf (<or=2+)
[2020-09-17 17:17] LABS: Hematocrit 33.4 % (37-47); Hemoglobin 9.7 g/dL (12.0-15.0); Mean Corpuscular Volume 79.3 fL (81-99); Mean Platelet Vol. 9.1 fl (6.2-12.0); POSITIVE COUNT YES; RBC Distribution Width CV 19.4 % (11.6-14.6); RBC Distribution Width SD 55.4 fl (35.1-43.9); Red Blood Count 4.21 M/mm3 (4.2-5.4); White Blood Count 13.3 K/mm3 (4.4-11.0)
[2020-09-17 17:18] LABS: Color, Urine Yellow (Yellow); Glucose, Dipstick Normal (Normal); Ketone-Dipstick Negative (Negative); Leukocyte Esterase-Dipstick 500 /ul (Negative); Nitrite-Dipstick Negative (Negative); Occult Blood-Urine 250 /ul (Negative); Protein-Dipstick Negative (Negative); Specific Gravity, Urine 1.015 (1.002-1.030); Urine Bilirubin Dipstick Negative (Negative); Urine Clarity Cloudy (Clear); Urine Urobilinogen Normal (Normal)
[2020-09-17 17:33] LABS: Red Blood Cells-Urine 0-5 SEEN /hpf (0-5); Squamous Epithelial Cells - UA 0-5 SEEN /hpf (5-10); White Blood Cells 5-10 SEEN /hpf (0-5)
[2020-09-17 17:34] LABS: Yeast-Urine 2+ /hpf (None Seen)
[2020-09-17 17:43] LABS: International Normalized Ratio 1.4; Prothrombin Time (Protime)PT. 16.1 SECONDS (11.7-14.9)
[2020-09-17 17:45] LABS: Partial Thromboplast Time 39.2 Seconds (24.1-36.2)
[2020-09-17 17:51] LABS: AST(SGOT) 17 U/L (15-37); Alanine Aminotransfer ALT/SGPT 12 U/L (13-56); Albumin, Serum 2.5 g/dL (3.2-5.0); Alkaline Phosphatase 130 U/L (45-117); Anion Gap 8 (5-15); BUN 9 mg/dL (7-18); BUN/Creat Ratio 14.4 RATIO (10-20); Bilirubin, Direct 0.13 mg/dL (0.00-0.30); Calcium,Total 8.7 mg/dL (8.5-10.1); Chloride 99 mmol/L (98-107); Creatinine, Serum 0.63 mg/dL (0.55-1.02); EST Glomerular Filtration Rate 104 mL/min (>60); Est Glom Filt Rate - Afr Amer 126 mL/min (>60); Globulin 5.4 g/dL (2.2-4.2); Glucose 77 mg/dL (74-106); Potassium 3.3 mmol/L (3.5-5.1); Protein, Total 7.9 g/dL (6.4-8.2); Sodium Level 137 mmol/L (136-145); Thyroid Stim Hormone (TSH) 1.93 uIU/mL (0.358-3.74)
[2020-09-17 18:03] LABS: Platelet Count 834 K/mm3 (150-450); Scan Indicated on CBC? Y/N YES- FLAGS NOTED
[2020-09-17 18:05] LABS: Differential Comment SCANNED
[2020-09-18 13:13] LABS: Pathologist Review Reviewed
[2020-09-19] VITALS (12 sets, daily range): BP systolic 76–102; BP diastolic 45–60; PULSE 71–85; RESP 14–18; TEMP 36.2–36.9; O2SAT 97–100; BMI 22.9
[2020-09-19] MEDS: Lactated Ringers 1,000 ML 100 ML IV ×3 (08:48→16:48)
[2020-09-19] MEDS: Vancomycin IV 1,000 MG/200 ML BAG 200 MG IV (08:48)
--- NOTE | 2020-09-19 09:30 | PRES_PTH ---
PATIENT: SCOTTY REDMOND LOC: MS3 U#:[id number] AGE/SX: 55/F ROOM: [facility] [place] RE09/20/[address]: Dr. Orion Mullen MD : 1965 BED: 1 DIS: 09/26/2020 SPEC #: [id number] RECD: 09/19/20 12:38 STATUS: JOLANTA REYojana #: [id number] MATTHEW: 09/19/20 09:[address]: Orion Mullen DEPT: SURGICAL PATHOLOGY RECD BY: Niranjan Lara ENTERED: 09/19/20 13:29 SP TYPE: PRESS SORE OTHR DR: Dr. Aaron Chand MD Tissues: A - Ischium, NOS B - Ischium, NOS C - Ischium, NOS Procedures: Decalcification bone/plaque Surgery Specimen Level III HEADER OPERATION: Excision ischial pressure sore, stage IV PRE-OP DIAGNOSIS: Sacral decubitus ulcer, stage IV; pressure sore left ischium, stage IV; paraplegia; chronic pain syndrome TISSUE SUBMITTED: A - Ischial tissue - pressure sore, B - Ischial bone, C - Sacral tissue - pressure sore MICROSCOPIC DIAGNOSIS A. Ischial tissue, pressure sore, excision: Pieces of skin with underlying tissue with focal ulceration, acute and chronic inflammation, abscess formation and granulation tissue reaction. B. Ischial bone: Pieces of bone with acute and chronic osteomyelitis and reactive changes. C. Sacral tissue, pressure sore, excision: A piece of skin with underlying tissue with ulceration, acute and chronic inflammation and granulation tissue reaction. SJ:komal 09/21/2020 MICROSCOPIC DESCRIPTION Slides are reviewed. GROSS DESCRIPTION A - Received in fixative is one container labeled with the patient's name and designated ischial tissue pressure sore. The specimen consists of multiple pieces of soft tissue and with a few pieces showing skin that in aggregate measure 12 x 11 x 4 cm. Sections do not reveal any mass lesions. Carrier Blower sections are submitted in two cassettes. B - Received in fixative is one container labeled with the patient's name and designated ischial bone. The specimen consists of four variably sized pieces of bone measuring in aggregate 3.5 x 2 x 0.3 cm. The entire specimen is submitted in two cassettes after decalcification. C - Received in fixative is one container labeled with the patient's name and designated sacral pressure sore. The specimen consists of a piece of skin with underlying tissue measuring 3 x 4 cm and up to 0.7 cm in thickness. The skin surface shows an extensive area of ulceration. Carrier Blower sections are submitted in two cassettes. / ALEENA:komal 09/19/20 TC:2 CPT: 39090 x3, 35816
--- NOTE | 2020-09-19 10:14 | HP.PCM_ITS ---
History and Physical Date of Admission: 09/19/20 HISTORY OF PRESENT ILLNESS History of Wound: 55 year old female with a history of renal cancer and metastasis to the bone [facility] with a sacral pressure sore and left ischial pressure sore. was admitted on 07/11/20 and discharged on 07/13/20 for sepsis related to an infected decubitus ulcer. She has been a paraplegic for 2.5 years after her back hardware broke. Her Oncologist is Dr. Valiente and she is on Cabometyx. Wound care has been with Dakin's dressing changes. She does sit in her wheelchair up to 12 hours a day while her is at work. They have someone come and help her out of bed in the morning and get her into her wheelchair. She has a new cushion on her wheelchair from the past several months. Wound culture was done on 07/24/20. The left ischial pressure sore was positive for Pseudomonas oryzihabitans and MRSE. The sacral pressure sore was positive for E.coli, Entercoccus faecalis, Methicillin resistant Staphylococcus haemolyticus. She was started Doxycycline, Cipro and Augmentin. Today she denies fever, chills and states she has a good appetite. Encourage nutritional supplementation with protein to help the healing process. PAST MEDICAL HISTORY Acute renal failure KELLEE (acute kidney injury) Cancer Chronic pain syndrome Encephalopathy acute History of non-ST elevation myocardial infarction (NSTEMI) (01/28/19) Immunocompromised state Metastatic renal cell carcinoma to bone Non-ischemic cardiomyopathy Non-smoker Nonobstructive atherosclerosis of coronary artery Paraplegia following spinal cord injury Right pulmonary embolus (01/28/19) Sacral decubitus ulcer, stage IV Sepsis Septic shock (01/29/19) Single kidney Takotsubo syndrome PAST SURGICAL HISTORY cholecystectomy left heart catheterization (01/31/19) right nephrectomy (03/30/13) spinal surgery (2018) MEDICATIONS temazepam 30 mg PO QHS 12/12/18 [History Last Taken 07/10/20] apixaban 5 mg PO BID 02/07/19 [History Last Taken 07/11/20] acyclovir 400 mg tablet 400 mg PO DAILY tab 08/19/19 [History Last Taken 07/11/20] furosemide 20 mg tablet 20 mg PO BID tab 08/19/19 [History Last Taken 07/11/20] methadone 5 mg tablet 10 mg PO DAILY tab 08/19/19 [History Last Taken 07/10/20] oxycodone 10 mg tablet 10 mg PO TID PRN PRN 08/19/19 [History Last Taken 07/10/20 22:00] potassium chloride baclofen gabapentin carvedilol Cabometyx calcium carbonate [Calcium 500] cholecalciferol levothyroxine [Euthyrox] melatonin methadone methenamine hippurate omeprazole polyethylene glycol cephalexin metronidazole [Flagyl] ALLERGIES Zofran FAMILY HISTORY Mother - Lung cancer Father - Lung cancer SOCIAL HISTORY Smoking Status: Never smoker ROS Constitutional Constitutional: Denies fatigue, fever(s), frequent falls or headache(s) Eyes Eyes: Reports none ENT HEENT: Reports none Cardiovascular Cardiovascular: Reports none Respiratory/Chest Respiratory/Chest: Reports none Gastrointestinal Gastrointestinal: Reports dyspepsia Musculoskeletal Musculoskeletal: Reports atrophy and other Details: She is wheelchair bound Integumentary Integumentary: Reports other Details: Sacral ulcer and new buttock ulcer Neurologic Neurologic: Reports none Psychiatric Psychiatric: Reports none Endocrine Endocrinology: Reports cold intolerance Physical Exam Const alert, oriented x3 and no apparent distress General Appearance: cooperative and well kempt HEENT normocephalic Eyes PERRL Neck full ROM Lymph Lymphatic: no lymphedema noted Resp normal respiratory effort and normal air movement Effort and Inspection: able to speak in complete sentences Cardio regular rate and regular rhythm GI soft to palpation, non-tender and non-distended no CVA tenderness Extremity normal capillary refill Skin Wound Narrative: Sacral ulcer stage IV, base of ulcer is beefy pink. Right ischial ulcer with increased kern slough, attempted to debride some of it out. Able to palpate the bone but it is covered with tissue, ulcer is into the muscle. Hair: normal Neuro oriented x3 and CN's II-XII intact bilaterally Psych mental status grossly normal Appearance: grossly normal Assessment/Plan (1) Sacral decubitus ulcer, stage IV: (2) Left ischial pressure sore,, stage 4: (3) Paraplegia following spinal cord injury: (4) Metastatic renal cell carcinoma to bone: (5) Malignant neoplasm of unspecified kidney, except renal pelvis: PLAN: Continue Dakin's dressing changes daily to both pressure sores. Continue Doxycycline, Ciprofloxacin, and Augmentin for wound cultures from 07/24/20. The left ischial pressure sore was positive for Pseudomonas oryzihabitans and MRSE. The sacral pressure sore was positive for E. coli, Enterococcus faecalis, and Methicillin resistant Staphylococcus haemolyticus. Encourage nutritional supplementation with protein to help the healing process. Will check a Prealbumin at the time of her surgery. Recommend operative excision of these pressure sores. For the left ischial pressure sore, there is extension to the bone so a partial ostectomy for osteomyelitis will be done. A positive culture will necessitate antibiotic therapy. If there is tracking of the sacral pressure sore down to the bone, then a partial ostectomy will be done as well. Surgery will be done under general anesthesia with a surgical observation overnight stay in the hospital. The wound VAC will be placed then. After the infection has been treated, can then plan on the second stage which is wound closure with myocutaneous flaps. At the time of flap surgery, the Prealbumin needs to be maximized to promote healing. Would reconstruct the pressure sores on separate occasions because of the length of time needed for the surgeries. After surgery, she will need to be on complete bedrest for 6 weeks. If she develops stool contamination during this process, then a diverting colostomy to allow a better chance for healing. Preoperatively will need a CT Pelvis. It can be obtained at her next visit in 2 weeks. Will schedule the surgery after that. At the time of surgery, if Pseudomonas or resistant Staph is still present, then an additional debridement would be necessary before proceeding with the flap since these organisms can be destructive to the muscle flap. Patient was informed of the risks and complications of the procedure including alternatives to surgery. These were discussed with the patient personally. Patient voices understanding and wishes to proceed. Followup 2 weeks. We discussed the current risks associated with COVID-19. While it is understood that there is a community spread of COVID-19, the risk of denisse COVID-19 while at [facility] ([facility]) is very low; however, the risk cannot be completely mitigated because of the community spread of the disease. We discussed in detail the risk of exposure to and/or potential harm posed by the COVID-19 virus with having a surgery/procedure at this time versus the risk of delaying the surgery/procedure. It is not possible to know either the risk of delaying the surgery or procedure or chance of getting an infection with perfect accuracy, but a joint decision was made to proceed at this time with the scheduled surgery/procedure as indicated on the consent form. Patient was notified that we will need to comply with any screening or testing WC wishes to perform or that surgery may be delayed for any positive results. Procedure Criteria Procedure Type:?Elective COVID Risk Discussion: The surgeon/proceduralist and patient have discussed in detail the risk of exposure to and/or potential harm posed by the COVID-19 virus with having a surgery/procedure at this time versus the risk of delaying the surgery/procedure .? It is not possible to know either the risk of delaying the surgery or procedure or chance of getting an infection with perfect accuracy, but a joint decision was made between the patient and the surgeon/proceduralist to proceed at this time with the scheduled surgery/procedure as indicated on the consent form.
[2020-09-19] MEDS: Lidocaine 1%/Epi 1:200 (30ml) 30 ML AMPUL (11:01)
--- NOTE | 2020-09-19 12:10 | OP.PCM_ITS ---
Problems Associated Problem List Diagnoses (1) Pressure sore of left ischium, stage 4: (2) Sacral decubitus ulcer, stage IV: (3) Paraplegia following spinal cord injury: (4) Metastatic renal cell carcinoma to bone: (5) Malignant neoplasm of unspecified kidney, except renal pelvis: Report of Operation Date of Procedure: 09/19/20 Pre-Operative Diagnosis: (1) Sacral pressure sore, stage IV: (2) Left ischial pressure sore,, stage IV: (3) Paraplegia following spinal cord injury: (4) Metastatic renal cell carcinoma to bone: (5) Malignant neoplasm of unspecified kidney, except renal pelvis: Post-Operative Diagnosis: same. Surgery/Procedure Performed:: 1. Excision left ischial pressure sore, Stage IV, with partial ostectomy for osteomyelitis. 2. Excision sacral pressure sore, Stage IV. Description of Surgical Findings:: 55 year old female with a history of renal cancer and metastasis to the bone presented to [facility] with a sacral pressure sore and left ischial pressure sore. was admitted on 07/11/20 and discharged on 07/13/20 for sepsis related to an infected decubitus ulcer. She has been a paraplegic for 2.5 years after her back hardware broke. Her Onc ologist is Dr. Valiente and she is on Cabometyx. Wound care has been with Dakin's dressing changes. She does sit in her wheelchair up to 12 hours a day while her is at work. They have someone come and help her out of bed in the morning and get her into her wheelchair. She has a new cushion on her wheelchair from the past several months. Wound culture was done on 07/24/20. The left ischial pressure sore was positive for Pseudomonas oryzihabitans and MRSE. The sacral pressure sore was positive for E.coli, Enterococcus faecalis, Methicillin resistant Staphylococcus haemolyticus. She was started Doxycycline, Cipro and Augmentin. Today she denies fever, chills and states she has a good appetite. Encourage nutritional supplementation with protein to help the healing process. Patient was informed of the risks and complications of the procedure including alternatives to surgery. These were discussed with the patient personally. Patient voices understanding and wishes to proceed. Some of the risks and complications were included in a form from the [employer]. Size of left ischial defect - 8 x 12 x 5 cm. Size of sacral defect - 5 x 6 x 3 cm. I used Surgicel absorbable hemostat, (4 x 8 inches). Reference Number - 1952. Lot Number - [id number]. Expiration - June 06, 2024. Surgeon: Orion Mullen electronic data processing auditor: None Type of Anesthesia: General Specimen's removed: 1. Left ischial pressure sore soft tissue to Pathology and Microbiology. 2. Left ischial pressure sore bone to Pathology and Microbiology. 3. Sacral pressure sore soft tissue to Pathology and Microbiology. Drains: None. Estimated Blood Loss (mL): 150. Description of Procedure: Patient was taken to OR in supine position and was placed under general anesthesia. She was then placed in the prone position. The sacral and buttocks areas were prepped and draped in the usual fashion. SCD's were placed for DVT prophylaxis. Perioperative antibiotics were given intravenously. Using xylocaine with epinephrine, the sacral and left ischial pressure sores were infiltrated. After waiting 5 minutes for the anesthetic to take effect, I excised the sacral pressure sure down through the subcutaneous tissue into the muscle. Some fat necrosis and some exudate were excised and debrided. Good bleeding tissue was then seen. There was viable healthy tissue over the bone. So no partial ostectomy was done today in the sacral area. Half the soft tissue was sent to Pathology for analysis to rule out carcinoma and half the soft tissue was sent to Microbiology for culture. A positive culture will necessitate antibiotic therapy. I then excised the left ischial pressure sore through subcutaneous tissue and muscle with extension down to the bone. There was a lot of undermining superiorly and laterally. There was extensive fat necrosis and exudate present. The overlying skin was excised to open up the wound to make the wound care easier postoperatively. There was a lot of exudate on the bone as well. A partial ostectomy was osteomyelitis was done using an osteotome and a mallet. A rasp was used to smooth out the bony edges. Clinically the bone appeared to be consistent with osteomyelitis. Half the soft tissue and half the bone was sent to Pathology for analysis to rule out carcinoma and to evaluate for osteomyelitis. Half the soft tissue and half the bone was sent to Microbiology for culture. A positive culture will necessitate antibiotic therapy. Both pressure sores were irrigated with saline. Hemostasis was obtained with electrocautery. There was some continued oozing around the ischial bone. So Surgicel absorbable hemostat was placed over the bone. Both wounds were dressed with Mepitel nonadherent dressing followed by Kerlix gauze and Betadine followed by dry Kerlix gauze and ABD pads compression dressing. Both pressure sores are very close together. There is a 3 cm skin bridge between the two. The left ischial pressure sore is very close to the anal opening. Will continue the discussion postoperatively with the patient regarding a diverting colostomy if stool contamination becomes an issue. Patient tolerated the procedure well and was sent to PACU in satisfactory condition. Patient will be sent upstairs for continued postop care. The VAC will be attempted to be placed tomorrow. If there is difficulty maintaining a seal, then can proceed daily Dakin's dressing changes. Grafts/Implants Used: Surgicel. Complications None. Admit VTE Documentation VTE Present on Admission: No (Patient is on Eliquis.) VTE Mechan Device Prophylaxis: SCD's VTE Pharm Prophylaxis ordered?: Yes Addendum Addendum: Surgery Charges CPT - 81884 ICD-10 - L89.324, G82.20, C79.51, C64.9, L89.154 80190 L89.154, G82.20, C79.51, C64.9, L89.324
--- NOTE | 2020-09-19 16:00 | CASEMGMT ---
SHERRON MADRIGAL NOTE: Pt has been admitted. SHERRON MADRIGAL to room and introduced self and role of SHERRON MADRIGAL @ [facility]. Pt states she wishes to return home @ discharge and would like to continue w/[facility] services through [facility]. TC to [facility]: SN and PT. Pt is currently active w/them and they were notified pt has been admitted to [facility] and plan is to return home w/wound vac. They state they will be able to manage the wound vac. Pt is also active w/[facility]. TC placed and they were also notified of pt admission to [facility]. Isael GARCIA RN, CM
[2020-09-19] MEDS: oxyCODONE 5 MG Tablet 10 MG PO (16:42)
[2020-09-19] MEDS: Pantoprazole Sodium 40 MG Tablet PO (16:43)
[2020-09-19] MEDS: Potassium Chloride Oral Tablet 20 MEQ PO (16:43)
[2020-09-19] MEDS: Baclofen 10 MG Tablet 7.5 MG PO (21:31)
[2020-09-19] MEDS: Methadone 10 MG Tablet PO (21:32)
[2020-09-19] MEDS: Methenamine Hippurate 1 GM Tablet PO (21:32)
[2020-09-19] MEDS: Gabapentin 300 MG Capsule PO (21:32)
[2020-09-19] MEDS: Carvedilol 3.125 MG TABLET PO (21:32)
[2020-09-19] MEDS: Temazepam 15 MG Capsule 30 MG PO (22:53)
[2020-09-19] MEDS: MELATONIN 10 MG TABLET 20 MG PO (22:53)
[2020-09-20] VITALS (17 sets, daily range): BP systolic 76–110; BP diastolic 45–74; PULSE 67–95; RESP 16–18; TEMP 36.6–38.1; O2SAT 92–100
[2020-09-20] MEDS: Lactated Ringers 1,000 ML 100 ML IV (05:23)
[2020-09-20] MEDS: 0.9% Saline Lock 10 ML Syringe IV (05:24)
[2020-09-20] MEDS: Levothyroxine 75 MCG Tablet PO (05:38)
[2020-09-20 05:57] LABS: Hematocrit 24.5 % (37-47); Mean Corp Hgb Conc 28.6 g/dL (32-36); Mean Corpuscular Hgb 22.7 pg (27.0-32.0); Mean Corpuscular Volume 79.3 fL (81-99); Mean Platelet Vol. 8.9 fl (6.2-12.0); Platelet Count 541 K/mm3 (150-450); RBC Distribution Width CV 19.3 % (11.6-14.6); RBC Distribution Width SD 55.7 fl (35.1-43.9); Red Blood Count 3.09 M/mm3 (4.2-5.4); White Blood Count 8.4 K/mm3 (4.4-11.0)
[2020-09-20 06:48] LABS: Anion Gap 3 (5-15); BUN 6 mg/dL (7-18); BUN/Creat Ratio 11.2 RATIO (10-20); Calcium,Total 7.6 mg/dL (8.5-10.1); Chloride 104 mmol/L (98-107); Creatinine, Serum 0.54 mg/dL (0.55-1.02); EST Glomerular Filtration Rate 124 mL/min (>60); Est Glom Filt Rate - Afr Amer 150 mL/min (>60); Glucose 95 mg/dL (74-106); Potassium 3.8 mmol/L (3.5-5.1); Prealbumin 3.1 mg/dL (20.0-40.0); Sodium Level 139 mmol/L (136-145)
[2020-09-20] MEDS: Potassium Chloride Oral Tablet 20 MEQ PO (08:20)
[2020-09-20] MEDS: Cholecalciferol (VIT D3) 25 MCG TABLET (1,000 UNITS) PO (08:22)
[2020-09-20] MEDS: Calcium (Elemental) 500 MG Tablet PO (08:23)
[2020-09-20] MEDS: Gabapentin 100 MG Capsule PO (09:08)
--- NOTE | 2020-09-20 09:25 | NURSING ---
PT BP 82/48 MANUALLY. HGB THIS AM 7.0 - MESSAGE LEFT FOR DR CONNOLLY ON HIS CELL PHONE.
[2020-09-20] MEDS: proMETHazine 25 MG Tablet PO (10:38)
[2020-09-20] MEDS: Methenamine Hippurate 1 GM Tablet PO ×2 (10:38→21:16)
[2020-09-20] MEDS: Baclofen 10 MG Tablet 7.5 MG PO ×2 (10:38→21:16)
[2020-09-20] MEDS: Acyclovir 200 MG Capsule 400 MG PO (10:39)
[2020-09-20] MEDS: Polyethylene Glycol 3350 17 GM PACKET PO (10:40)
--- NOTE | 2020-09-20 10:46 | NURSING ---
wound photo: sacrum/left ischium
--- NOTE | 2020-09-20 11:40 | NURSING ---
RECEIVED RETURN CALL FROM DR CONNOLLY. NEW ORDERS RECEIVED.
--- NOTE | 2020-09-20 12:18 | RAD_ITS ---
STUDY: X-RAY CHEST REASON FOR EXAM: Female, 55 years old. Fever. TECHNIQUE: Single AP portable view of the chest. COMPARISON: 07/15/2020. FINDINGS: Stable left subclavian Port-A-Cath. Stable elevation left hemidiaphragm. There is minimal linear atelectasis at the left lung base. Lungs are otherwise clear. There is no demonstrated pleural abnormality. Normal size heart. Normal mediastinum and john. Normal visualized pulmonary arteries. Normal visualized aortic arch and descending thoracic aorta. Stable fusion of the thoracolumbar spine. Normal visualized ribs, clavicles, and shoulders. There is no demonstrated abnormality of the visualized soft tissue structures of the upper abdomen. RAD/Chest 1 View (Portable) IMPRESSION: No acute cardiopulmonary disease or major interval change. Electronically Signed: Samson Rosenthal DO at 16:48 EDT Tel [phone], Service support ,
--- NOTE | 2020-09-20 12:20 | CASEMGMT ---
SHERRON MADRIGAL Face to Face with patient for initial transition planning/care coordination assessment. RN CM introduced self and role at [facility]. Patient lying in bed, alert and oriented. Patient willing to participate in assessment and is able to answer all questions appropriately. Care providers, pharmacy, and demographics verified. Patient wishes to discharge home with resumption of HHC but is willing to go to SNF if needed. Patient states she will discuss plans with . Did discuss potential for possible IV ATBs at discharge. Patient states she has no further needs or concerns at this time. CM to follow for discharge planning needs that may arise. PCP: Jagruti Specialists: Sebas, plastics; Steffanie, oncologist Preferred Pharmacy: [facility] Insurance: [employer] Prescription Benefit: yes Living Will/HPOA: yes, Lexii Dickson LNOK: Living Arrangements: Patient lives with in one story home with no steps to enter the home. Patient states her assists with bathing and dressing but patient toilets herself Transportation: DME/HHC: Patient states she has shower chair, raised toilet, grab bars, and wheel chair at home. Patient is currently active with [facility]. Disposition Plan: TBD HHC vs SNF pending course of treatment. Maida GARCIA, RN, CM
[2020-09-20] MEDS: Lactated Ringers 1,000 ML 150 ML IV (12:25)
--- NOTE | 2020-09-20 14:20 | PN.SURG_ITS ---
Subjective Subjective Postop #1 Patient feels tired. Objective Data Objective Data Vital Signs: Vital Signs Temp Pulse Resp BP Pulse Ox 99.5 F H 81 18 76/45 L 92 09/20/20 11:54 09/20/20 11:54 09/20/20 11:54 09/20/20 11:54 09/20/20 11:54 Oxygen Delivery Method Room Air Weight: 142 lb 1.6 oz Body Mass Index (BMI) 22.9 Intake & Output: Intake and Output for Last 24 Hours 09/18/20 09/19/20 09/20/20 23:59 23:59 23:59 Intake Total 2321.67 / 2721.67 2830 / 2830 Output Total 190 / 540 600 / 600 Balance 2131.67 / 2181.67 2230 / 2230 Lab / Micro Data Attestation: I reviewed the patient's lab results. Result Diagrams: 09/22/20 06:30 09/22/20 06:30 Labs: Laboratory Results - last 24 hr 09/20/20 05:37: WBC 8.4, RBC 3.09 L, Hgb 7.0 L, Hct 24.5 L, MCV 79.3 L, MCH 22.7 L, MCHC 28.6 L, RDW Std Deviation 55.7 H, RDW Coeff of Deborah 19.3 H, Plt Count 541 H, MPV 8.9 09/20/20 05:37: Sodium 139, Potassium 3.8, Chloride 104, Carbon Dioxide 32.0, Anion Gap 3 L, BUN 6 L, Creatinine 0.54 L, Estim Creat Clear Calc 107.60, Est GFR (MDRD) Af Amer 150, Est GFR (MDRD) Non-Af 124, BUN/Creatinine Ratio 11.2, Glucose 95, Calcium 7.6 L, Prealbumin 3.1 L 09/20/20 12:54: Crossmatch See Detail Micro: Microbiology 09/19/20 Unknown Tissue - Sacral Gram Stain - Final 09/19/20 Unknown Tissue - Sacral Wound Culture - Preliminary Staphylococcus species 09/19/20 Unknown Bone - Ischial Bone Gram Stain - Final 09/19/20 Unknown Bone - Ischial Bone Wound Culture - Preliminary Mixed Gram Positive Organisms 09/19/20 Unknown Tissue - Ischial Pressure Sore Gram Stain - Final 09/19/20 Unknown Tissue - Ischial Pressure Sore Wound Culture - Preliminary Beta hemolytic organism Staphylococcus species 09/17/20 14:15 Nasal Secretion SARS-CoV-2 Antigen (Rapid) - Final Physical Exam Narrative PHYSICAL EXAMINATION General - Alert and Oriented. Little sleepy from the surgery. Abdomen - Soft and nondistended. Buttocks - Sacral and left ischial pressure sores are stable. No active bl eeding noted. VAC applied today. Assessment & Plan Assessment/Plan (1) Pressure sore of left ischium, stage 4: (2) Sacral decubitus ulcer, stage IV: (3) Paraplegia following spinal cord injury: (4) Malignant neoplasm of unspecified kidney, except renal pelvis: (5) Metastatic renal cell carcinoma to bone: (6) Fever postop: (7) Acute postoperative anemia due to expected blood loss: (8) UTI (urinary tract infection) due to urinary indwelling Blount catheter: PLAN: Patient's sacral and left ischial pressure sore wounds are stable. No active bleeding noted. VAC applied. Operative cultures show Staphylococcus species. Continue Vancomycin and Zosyn. Pathology is pending. Prealbumin was 3.1. Encourage nutritional supplementation with protein to help the healing process. Patient has postop fever of 100.6. Probably respiratory. Will order CXR. Will also order a Urinalysis since she has an indwelling catheter. Hgb today was low at 7.0. Preop it was 9.7. Has acute postop anemia due to e xpected blood loss. No active bleeding noted at this time. Will transfuse 2 units of PRBC today. I anticipate she will need IV antibiotics at discharge. If two antibiotics are needed, will need to go to transitional care for a couple of weeks. Patient voices understanding. She wants to go home but understands the medical necessity of going to a facility postdischarge for a short time.
--- NOTE | 2020-09-20 16:07 | NURSING ---
This RN reviewed SN charting.
[2020-09-20] MEDS: Acetaminophen 500 MG Tablet PO (17:40)
[2020-09-20 19:46] LABS: Mucous, Urine 0 SEEN /hpf (<or=2+)
[2020-09-20 19:56] LABS: Color, Urine Straw (Yellow); Glucose, Dipstick Normal (Normal); Ketone-Dipstick Negative (Negative); Leukocyte Esterase-Dipstick 500 /ul (Negative); Nitrite-Dipstick Negative (Negative); Occult Blood-Urine 150 /ul (Negative); Protein-Dipstick 15 mg/dl (Negative); Specific Gravity, Urine 1.005 (1.002-1.030); Urine Bilirubin Dipstick Negative (Negative); Urine Clarity Cloudy (Clear); Urine Urobilinogen Normal (Normal)
[2020-09-20 20:08] LABS: Amorphous Sediment 1+ PHOS; Bacteria RARE /hpf (None Seen); Red Blood Cells-Urine 50-100 SEEN /hpf (0-5); Squamous Epithelial Cells - UA 5-10 SEEN /hpf (5-10); White Blood Cells >100 SEEN /hpf (0-5)
[2020-09-20] MEDS: Methadone 10 MG Tablet PO (21:16)
[2020-09-20] MEDS: Gabapentin 300 MG Capsule PO (21:18)
[2020-09-20 22:14] LABS: Vancomycin, Trough Level 21.1 ug/mL (5.0-15.0)
--- NOTE | 2020-09-20 23:33 | PCM.RX.CS ---
Consult Pharmacy has been consulted to manage selected antiobiotic: Vancomycin Type of Consult: Follow-up Labs: Sodium 139 mmol/L (136-145) 09/20/20 05:37 Potassium 3.8 mmol/L (3.5-5.1) 09/20/20 05:37 Chloride 104 mmol/L (98-107) 09/20/20 05:37 Carbon Dioxide 32.0 mmol/L (21.0-32.0) 09/20/20 05:37 Anion Gap 3 (5-15) L 09/20/20 05:37 BUN 6 mg/dL (7-18) L 09/20/20 05:37 Creatinine 0.54 mg/dL (0.55-1.02) L 09/20/20 05:37 Est GFR (MDRD) Af Amer 150 mL/min (>60) 09/20/20 05:37 Est GFR (MDRD) Non-Af 124 mL/min (>60) 09/20/20 05:37 BUN/Creatinine Ratio 11.2 RATIO (10-20) 09/20/20 05:37 Glucose 95 mg/dL (74-106) 09/20/20 05:37 Vancomycin Trough 21.1 ug/mL (5.0-15.0) H 09/20/20 21:30 Microbiology: Microbiology 09/19/20 Unknown Tissue - Sacral Gram Stain - Final 09/19/20 Unknown Tissue - Sacral Wound Culture - Preliminary Staphylococcus species 09/19/20 Unknown Bone - Ischial Bone Gram Stain - Final 09/19/20 Unknown Bone - Ischial Bone Wound Culture - Preliminary Mixed Gram Positive Organisms 09/19/20 Unknown Tissue - Ischial Pressure Sore Gram Stain - Final 09/19/20 Unknown Tissue - Ischial Pressure Sore Wound Culture - Preliminary Beta hemolytic organism Staphylococcus species 09/17/20 14:15 Nasal Secretion SARS-CoV-2 Antigen (Rapid) - Final Pharmacy Plan for Drug Dosing: Pharmacy Service will continue to monitor and adjust dosing as required. TROUGH 21.1 DOSE HELD, DRAW RANDOM LEVEL IN 12 HOURS AND REDOSE Follow-Up Labs: Trough Vancomycin Labs to be done on [date and time ordered]: 09/21 @ 3668
[2020-09-21 01:45] VITALS: BP 102/73; PULSE 65; RESP 16; TEMP 36.6; O2SAT 99
[2020-09-21] MEDS: Lactated Ringers 1,000 ML 175 ML IV ×4 (03:43→22:47)
[2020-09-21] MEDS: Levothyroxine 75 MCG Tablet PO (05:32)
[2020-09-21 05:39] VITALS: BP 115/71; PULSE 72; RESP 16; TEMP 36.6; O2SAT 100
[2020-09-21 07:19] LABS: Hematocrit 32.7 % (37-47); Mean Corp Hgb Conc 30.6 g/dL (32-36); Mean Corpuscular Volume 81.8 fL (81-99); Mean Platelet Vol. 8.6 fl (6.2-12.0); Platelet Count 448 K/mm3 (150-450); RBC Distribution Width SD 53.1 fl (35.1-43.9)
[2020-09-21 07:57] LABS: Anion Gap 3 (5-15); BUN 5 mg/dL (7-18); BUN/Creat Ratio 15.1 RATIO (10-20); Calcium,Total 7.2 mg/dL (8.5-10.1); Chloride 116 mmol/L (98-107); Creatinine, Serum 0.33 mg/dL (0.55-1.02); EST Glomerular Filtration Rate 218 mL/min (>60); Est Glom Filt Rate - Afr Amer 263 mL/min (>60); Estimated Creatinine Clearance 176.08 ml/min; Glucose 94 mg/dL (74-106); Potassium 3.4 mmol/L (3.5-5.1); Sodium Level 147 mmol/L (136-145)
[2020-09-21 08:14] LABS: Scan Indicated on CBC? Y/N NO
[2020-09-21] MEDS: Acyclovir 200 MG Capsule 400 MG PO (10:15)
[2020-09-21] MEDS: Methenamine Hippurate 1 GM Tablet PO ×2 (10:15→21:26)
[2020-09-21] MEDS: Juven (unflavored) Packet 1 PACKET PO ×2 (10:15→17:46)
[2020-09-21] MEDS: Cholecalciferol (VIT D3) 25 MCG TABLET (1,000 UNITS) PO (10:16)
[2020-09-21] MEDS: Carvedilol 3.125 MG TABLET PO (10:16)
[2020-09-21] MEDS: Gabapentin 100 MG Capsule PO ×2 (10:16→17:46)
[2020-09-21] MEDS: Furosemide 20 MG Tablet PO ×2 (10:16→17:46)
[2020-09-21] MEDS: APIXABAN 5 MG TABLET PO ×2 (10:16→21:25)
[2020-09-21] MEDS: Calcium (Elemental) 500 MG Tablet PO (10:16)
[2020-09-21] MEDS: Potassium Chloride Oral Tablet 20 MEQ PO ×2 (10:16→17:46)
[2020-09-21] MEDS: Baclofen 10 MG Tablet 7.5 MG PO ×2 (10:17→21:25)
[2020-09-21 10:27] VITALS: BP 131/81; PULSE 72; RESP 18; TEMP 36.3; O2SAT 100
--- NOTE | 2020-09-21 10:54 | NURSING ---
Wound VAC dressing remains intact with good seal noted at 150mmHg low continuous suction. dressing due to be changed 09/22/20 and then will get on a schedule. If unable to keep a seal, would recommend Dakins moistened gauze dressings BID. Pt still quite groggy, but states she feels the plan is still to try going home with the wound VAC rather than going to a [facility]. pt denies further needs at this time.
[2020-09-21 11:09] LABS: Vancomycin, Random Level 17.2 ug/mL (0.0-15.0)
--- NOTE | 2020-09-21 13:43 | CASEMGMT ---
Addendum entered by Bri Matute 09/21/20 20:08: Spoke w/Quin @ [facility]. Pt's insurance will cover 100% d/t pt has met her deductible and [id number] max. TC to Ewa @ [facility]. She was made aware pt may be medically ready to discharge on Thursday and that plan is for pt to be on IV Vanco Q 12 hrs. Pt wishes to return home, if able. and pt are both teachable to learn IV admin. Per Ewa, with the additional SN needs for wound vac care and IV atb's, they do not have the staffing to resume HHC services next week until Thursday (09/26) at the earliest, with being preferable. in to visit w/pt this evening. Discussion w/pt and about HHC and SNF. They were made aware of all of the above. Questions answered. Pt/ state they have been very pleased [facility] and have had difficulty with getting HHC in the past d/t pt's location. They would ultimately like for pt to return home w/[facility] w/[facility] as soon as possible, but state would be agreeable for pt to go to TCU until [facility] services can be resumed. Original Note: SHERRON MADRIGAL NOTE: Dr Mullen states pt will be here through the weekend and may be ready for discharge on Thu. He plans to discharge pt on IV Vancomycin. Script faxed to [facility] at this time along w/demographics. Call placed to Jennie @ [facility] and requested financials to be determined so this information can be provided to pt, as she wishes to return home if able. Awaiting return call from [facility]. Isael GARCIA RN, CM
[2020-09-21] MEDS: Vancomycin IV 1,000 MG/200 ML BAG 200 MG IV (13:44)
--- NOTE | 2020-09-21 15:12 | PCM.RX.CS ---
Consult Pharmacy has been consulted to manage selected antiobiotic: Vancomycin Type of Consult: Follow-up Suspected Infection: Skin/Soft tissue Prior Doses of Antibiotics Received/Current Regimen: Has been on 1250mg iv q12h. Labs: Sodium 147 mmol/L (136-145) H 09/21/20 07:10 Potassium 3.4 mmol/L (3.5-5.1) L 09/21/20 07:10 Chloride 116 mmol/L (98-107) H 09/21/20 07:10 Carbon Dioxide 28.0 mmol/L (21.0-32.0) 09/21/20 07:10 Anion Gap 3 (5-15) L 09/21/20 07:10 BUN 5 mg/dL (7-18) L 09/21/20 07:10 Creatinine 0.33 mg/dL (0.55-1.02) L 09/21/20 07:10 Est GFR (MDRD) Af Amer 263 mL/min (>60) 09/21/20 07:10 Est GFR (MDRD) Non-Af 218 mL/min (>60) 09/21/20 07:10 BUN/Creatinine Ratio 15.1 RATIO (10-20) 09/21/20 07:10 Glucose 94 mg/dL (74-106) 09/21/20 07:10 Vancomycin Trough 21.1 ug/mL (5.0-15.0) H 09/20/20 21:30 Random Vancomycin 17.2 ug/mL (0.0-15.0) H 09/21/20 10:35 Microbiology: Microbiology 09/19/20 Unknown Tissue - Ischial Pressure Sore Gram Stain - Final 09/19/20 Unknown Tissue - Ischial Pressure Sore Wound Culture - Preliminary Staphylococcus aureus Streptococcus group G Alpha hemolytic organism 09/19/20 Unknown Tissue - Ischial Pressure Sore Anaerobic Culture - Preliminary Checking for anaerobes, further studies to follow. 09/20/20 13:00 Urine Catheter - Blount Urine Culture - Preliminary Culture exhibits no growth. 09/19/20 Unknown Bone - Ischial Bone Gram Stain - Final 09/19/20 Unknown Bone - Ischial Bone Wound Culture - Preliminary Staphylococcus aureus GPC Poss Enterococcus sp Alpha hemolytic organism 09/19/20 Unknown Bone - Ischial Bone Anaerobic Culture - Preliminary Checking for anaerobes, further studies to follow. 09/19/20 Unknown Tissue - Sacral Gram Stain - Final 09/19/20 Unknown Tissue - Sacral Wound Culture - Preliminary Staphylococcus aureus Alpha hemolytic organism 09/17/20 14:15 Nasal Secretion SARS-CoV-2 Antigen (Rapid) - Final Weight used for dosin.5 kg Estimated Creatinine Clearance: 176ml/min Goal Trough: 15-20 mcg/mL Pharmacy Plan for Drug Dosing: Today's random level ~23 hrs post last dose was 17.2 (goal range 15-20mcg/ml). Previous level on 09.20 was 21.1. New dose calculated will be 1gm iv q12h. Another trough level is ordered for 09.23.20 before 4th dose of new regimen. Pharmacy Service will continue to monitor and adjust dosing as required. Follow-Up Labs: Trough Vancomycin - 09.23.20 @0130 before 0200 dose
[2020-09-21 16:23] VITALS: BP 101/62; PULSE 81; RESP 18; TEMP 36.6; O2SAT 99
--- NOTE | 2020-09-21 16:24 | CASEMGMT ---
Social Work Note SW in to speak with pt and provide support. Pt teary eyed when this worker entered the room. SW introduced self and role at [facility]. Pt is alert and orientated. Pt states she just doesn't understand what is going on with her medically. SW spoke with pt about talking to her RN and Dr. Mullen regarding her medical care. Pt states that Dr. Mullen was in today but she doesn't remember talking to him. Pt states I had back surgery before and I went home the next day and I am still here at the hospital. Pt states I thought this was going to be a simple procedure. SW offered support to pt. SW spoke with pt about how every surgery and recovery is different. SW asked pt about her support system. Pt states her is good support for her, pt denied anybody else being good support. Pt becoming tearful throughout conversation. SW offered much support to pt. Pt states I don't want to go to a group home. SW spoke with pt about how it is her choice what she wants to do and staff is aware that she prefers to return home. SW spoke with pt about how going to a SNF would just be an option and spoke with pt about different SNF options including [facility] TCU. SW explained though that since pt hasn't had COVID vaccination, pt would be in isolation regardless of SNF she goes to but informed pt that her will still be allowed to visit (compassionate care visits). SW attempted to ask pt about Mental Health, pt becoming tearful again, unable to really speak to this worker about Mental Health. Pt asked this worker to assist in calling her . SW assisted pt in calling her . SW offered much support to pt throughout conversation. Pt continuously tearful and teary eyed throughout conversation. SW and RN CM to continue to follow pt to confirm discharge plans. Maida Valdovinos CAPTAIN/AIRLINE PILOT, QUALITY CHECKER
--- NOTE | 2020-09-21 17:03 | PN.SURG_ITS ---
Subjective Subjective Postop #2 Patient is a little more awake and feels less tired. Had PRBC. Objective Data Objective Data Vital Signs: Vital Signs Temp Pulse Resp BP Pulse Ox 97.8 F 81 18 101/62 99 09/21/20 16:23 09/21/20 16:23 09/21/20 16:23 09/21/20 16:23 09/21/20 16:23 Oxygen Delivery Method Room Air Weight: 142 lb 1.583 oz Body Mass Index (BMI) 22.9 Intake & Output: Intake and Output for Last 24 Hours 09/19/20 09/20/20 09/21/20 23:59 23:59 23:59 Intake Total 2321.67 / 2721.67 4055 / 4055 3305 / 3305 Output Total 190 / 540 1300 / 1750 1350 / 1350 Balance 2131.67 / 2181.67 2755 / 2305 1955 / 1955 Lab / Micro Data Attestation: I reviewed the patient's lab results. Result Diagrams: 09/22/20 06:30 09/22/20 06:30 Labs: Laboratory Results - last 24 hr 09/20/20 12:54: Blood Type A POSITIVE, Antibody Screen NEGATIVE, Crossmatch See Detail 09/20/20 13:00: Urine Color Straw, Urine Clarity Cloudy, Urine pH 7.0, Ur Specific [place] 1.005, Urine Protein 15 H, Urine Glucose (UA) Normal, Urine Ketones Negative, Urine Occult Blood 150 H, Urine Nitrite Negative, Urine Bilirubin Negative, Urine Urobilinogen Normal, Ur Leukocyte Esterase 500 H, Urine RBC 50-100 SEEN, Urine WBC >100 SEEN, Ur Squamous Epith Cells 5-10 SEEN, A morphous Sediment 1+ PHOS, Urine Bacteria RARE, Urine Mucus 0 SEEN 09/20/20 21:30: Vancomycin Trough 21.1 H 09/21/20 07:10: WBC 9.0, RBC 4.00 L, Hgb 10.0 L, Hct 32.7 L, MCV 81.8, MCH 25.0 L, MCHC 30.6 L D, RDW Std Deviation 53.1 H, RDW Coeff of Deborah 18.0 H, Plt Count 448, MPV 8.6 09/21/20 07:10: Sodium 147 H, Potassium 3.4 L, Chloride 116 H, Carbon Dioxide 28.0, Anion Gap 3 L, BUN 5 L, Creatinine 0.33 L, Estim Creat Clear Calc 176.08, Est GFR (MDRD) Af Amer 263, Est GFR (MDRD) Non-Af 218, BUN/Creatinine Ratio 15.1, Glucose 94, Calcium 7.2 L 09/21/20 10:35: Random Vancomycin 17.2 H Micro: Microbiology 09/19/20 Unknown Tissue - Ischial Pressure Sore Gram Stain - Final 09/19/20 Unknown Tissue - Ischial Pressure Sore Wound Culture - Preliminary Staphylococcus aureus Streptococcus group G Alpha hemolytic organism 09/19/20 Unknown Tissue - Ischial Pressure Sore Anaerobic Culture - Preliminary Checking for anaerobes, further studies to follow. 09/20/20 13:00 Urine Catheter - Blount Urine Culture - Preliminary Culture exhibits no growth. 09/19/20 Unknown Bone - Ischial Bone Gram Stain - Final 09/19/20 Unknown Bone - Ischial Bone Wound Culture - Preliminary Staphylococcus aureus GPC Poss Enterococcus sp Alpha hemolytic organism 09/19/20 Unknown Bone - Ischial Bone Anaerobic Culture - Preliminary Checking for anaerobes, further studies to follow. 09/19/20 Unknown Tissue - Sacral Gram Stain - Final 09/19/20 Unknown Tissue - Sacral Wound Culture - Preliminary Staphylococcus aureus Alpha hemolytic organism 09/17/20 14:15 Nasal Secretion SARS-CoV-2 Antigen (Rapid) - Final Radiography Diagnostic Testing: RAD/Chest 1 View (Portable) FINDINGS: Stable left subclavian Port-A-Cath. Stable elevation left hemidiaphragm. There is minimal linear atelectasis at the left lung base. Lungs are otherwise clear. There is no demonstrated pleural abnormality. Normal size heart. Normal mediastinum and john. Normal visualized pulmonary arteries. Normal visualized aortic arch and descending thoracic aorta. Stable fusion of the thoracolumbar spine. Normal visualized ribs, clavicles, and shoulders. There is no demonstrated abnormality of the visualized soft tissue structures of the upper abdomen. IMPRESSION: No acute cardiopulmonary disease or major interval change. Electronically Signed: Samson Rosenthal DO at 16:48 EDT Tel [phone], Service support , Physical Exam Narrative General - Alert and more awake. Less sleepy from the surgery. Abdomen - Soft and nondistended. Buttocks - Sacral and left ischial pressure sores are stable. VAC in place. Minimal drainage in the canister. Assessment & Plan Assessment/Plan (1) Pressure sore of left ischium, stage 4: (2) Sacral decubitus ulcer, stage IV: (3) Paraplegia following spinal cord injury: (4) Malignant neoplasm of unspecified kidney, except renal pelvis: (5) Metastatic renal cell carcinoma to bone: (6) Fever postop: (7) Acute postoperative anemia due to expected blood loss: (8) UTI (urinary tract infection) due to urinary indwelling Blount catheter: PLAN: Patient's sacral and left ischial pressure sore wounds are stable. VAC in place. Minimal drainage in the canister. Operative cultures show Staphylococcus aureus and Streptococcus Group G in the left ischial wound, soft tissue, and Staphylococcus aureus and Enterococcus in the left ischial wound, bone. The sacral wound showed Staphylococcus aureus. Continue Vancomycin and Zosyn. Pathology is pending. Prealbumin was 3.1. Encourage nutritional supplementation with protein to help the healing process. Patient had postop fever of 100.6. She is now afebrile. Probably respiratory. CXR showed minimal linear atelectasis in the left lung base. Urinalysis showed a UTI. She has an indwelling catheter. Urine culture pending. Hgb today improved to 10.0 after the PRBC. Preop it was 9.7. Has acute postop anemia due to expected blood loss. No active bleeding noted at this time. Will continue to monitor. I anticipate she will need IV antibiotics at discharge. If two antibiotics are needed, will need to go to transitional care for a couple of weeks. Patient voices understanding. She wants to go home but understands the medical necessity of going to a facility postdischarge for a short time.
[2020-09-21] MEDS: Pantoprazole Sodium 40 MG Tablet PO (17:46)
[2020-09-21] MEDS: Gabapentin 300 MG Capsule PO (21:24)
[2020-09-21] MEDS: Temazepam 15 MG Capsule 30 MG PO (21:37)
[2020-09-21 22:30] VITALS: BP 109/55; PULSE 73; RESP 16; TEMP 36.9; O2SAT 98
[2020-09-22] MEDS: Vancomycin IV 1,000 MG/200 ML BAG 200 MG IV ×2 (02:18→14:28)
[2020-09-22 04:22] VITALS: BP 105/68; PULSE 87; RESP 15; TEMP 36.9; O2SAT 98
[2020-09-22] MEDS: Levothyroxine 75 MCG Tablet PO (05:16)
[2020-09-22] MEDS: Lactated Ringers 1,000 ML 175 ML IV ×3 (05:17→11:48)
[2020-09-22 06:40] LABS: Hematocrit 33.3 % (37-47); Mean Corpuscular Hgb 24.6 pg (27.0-32.0); Mean Corpuscular Volume 81.8 fL (81-99); Mean Platelet Vol. 8.9 fl (6.2-12.0); Platelet Count 503 K/mm3 (150-450); RBC Distribution Width CV 18.8 % (11.6-14.6); RBC Distribution Width SD 56.1 fl (35.1-43.9); Red Blood Count 4.07 M/mm3 (4.2-5.4); White Blood Count 7.9 K/mm3 (4.4-11.0)
[2020-09-22 07:14] LABS: Anion Gap 4 (5-15); BUN 14 mg/dL (7-18); Calcium,Total 7.6 mg/dL (8.5-10.1); Chloride 116 mmol/L (98-107); Creatinine, Serum 0.45 mg/dL (0.55-1.02); EST Glomerular Filtration Rate 152 mL/min (>60); Est Glom Filt Rate - Afr Amer 184 mL/min (>60); Estimated Creatinine Clearance 129.12 ml/min; Glucose 90 mg/dL (74-106); Potassium 3.6 mmol/L (3.5-5.1); Sodium Level 147 mmol/L (136-145)
[2020-09-22 08:14] VITALS: BP 137/74; PULSE 72; RESP 16; TEMP 36.6; O2SAT 100
[2020-09-22] MEDS: Potassium Chloride Oral Tablet 20 MEQ PO ×2 (08:22→17:16)
[2020-09-22] MEDS: Juven (unflavored) Packet 1 PACKET PO ×2 (08:22→17:16)
[2020-09-22] MEDS: Gabapentin 100 MG Capsule PO ×2 (08:23→17:16)
[2020-09-22] MEDS: Cholecalciferol (VIT D3) 25 MCG TABLET (1,000 UNITS) PO (08:23)
[2020-09-22] MEDS: Calcium (Elemental) 500 MG Tablet PO (08:23)
[2020-09-22] MEDS: Carvedilol 3.125 MG TABLET PO ×2 (09:56→21:45)
[2020-09-22] MEDS: Baclofen 10 MG Tablet 7.5 MG PO ×2 (09:56→21:45)
[2020-09-22] MEDS: Acyclovir 200 MG Capsule 400 MG PO (09:57)
[2020-09-22] MEDS: APIXABAN 5 MG TABLET PO ×2 (09:57→21:45)
[2020-09-22] MEDS: Furosemide 20 MG Tablet PO ×2 (09:57→18:38)
[2020-09-22] MEDS: Polyethylene Glycol 3350 17 GM PACKET PO (09:57)
[2020-09-22] MEDS: Methenamine Hippurate 1 GM Tablet PO ×2 (09:57→21:45)
[2020-09-22 14:04] VITALS: BP 114/71; PULSE 81; RESP 16; TEMP 36.8; O2SAT 100
--- NOTE | 2020-09-22 16:00 | CASEMGMT ---
Addendum entered by Margaret Scanlon 09/22/20 17:38: ADITYA provided patient with list of SNF providers in [facility] for her review. ADITYA remains available if needs arise. Margaret PEÑA Original Note: ADITYA Note Referral Source: MS3 SW Referral Reason: Emotional Support SW received referral to follow up with patient and provide emotional support. SW also received referral from manager rn case regarding any any resources. SW met with patient and her . Provided emotional support. 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 Patient and voiced that they were unaware of what the name of the place they went to was called but had never received follow up. Patient does receives Social Security. Patient has been in current medical condition since 02/2018. Patient was provided information on [facility] including their assessment in the home and contact number, information on [place] [facility] and information on [facility] of and any support they could provide. ADITYA also encouraged family to contact [facility] and request manager rn case. ADITYA provided all this information with screen shots of agencies and phone numbers for patient and to contact. Patient and were encouraged to contact ADITYA if additional needs arise. Plan: To be determined Margaret PEÑA
--- NOTE | 2020-09-22 16:45 | PCM.PN.SRG ---
Subjective Subjective Postop #3 Patient is resting comfortably. Objective Data Objective Data Vital Signs: Vital Signs Temp Pulse Resp BP Pulse Ox 98.3 F 81 16 114/71 100 09/22/20 14:04 09/22/20 14:04 09/22/20 14:04 09/22/20 14:04 09/22/20 14:04 Oxygen Delivery Method Room Air Weight: 142 lb 1.583 oz Body Mass Index (BMI) 22.9 Intake & Output: Intake and Output for Last 24 Hours 09/20/20 09/21/20 09/22/20 23:59 23:59 23:59 Intake Total 4055 / 4055 4835 / 4985 2690.41 / 269.41 Output Total 1300 / 1750 1650 / 1975 675 / 675 Balance 2755 / 2305 3185 / 3010 / Lab / Micro Data Attestation: I reviewed the patient's lab results. Result Diagrams: 09/23/20 01:28 09/23/20 01:28 Labs: Laboratory Results - last 24 hr 09/22/20 06:30: WBC 7.9, RBC 4.07 L, Hgb 10.0 L, Hct 33.3 L, MCV 81.8, MCH 24.6 L, MCHC 30.0 L, RDW Std Deviation 56.1 H, RDW Coeff of Deborah 18.8 H, Plt Count 503 H, MPV 8.9 09/22/20 06:30: Sodium 147 H, Potassium 3.6, Chloride 116 H, Carbon Dioxide 27.0, Anion Gap 4 L, BUN 14, Creatinine 0.45 L, Estim Creat Clear Calc 129.12, Est GFR (MDRD) Af Amer 184, Est GFR (MDRD) Non-Af 152, BUN/Creatinine Ratio 31.0 H, Glucose 90, Calcium 7.6 L Micro: Microbiology 09/20/20 13:00 Urine Catheter - Blount Urine Culture - Final Yeast, not Jessica albicans 09/19/20 Unknown Tissue - Sacral Gram Stain - Final 09/19/20 Unknown Tissue - Sacral Wound Culture - Final Staphylococcus aureus Streptococcus mitis/ oralis 09/19/20 Unknown Tissue - Ischial Pressure Sore Gram Stain - Final 09/19/20 Unknown Tissue - Ischial Pressure Sore Wound Culture - Final Staphylococcus aureus Streptococcus group G Streptococcus mitis/ oralis 09/19/20 Unknown Tissue - Ischial Pressure Sore Anaerobic Culture - Preliminary Checking for anaerobes, further studies to follow. 09/19/20 Unknown Bone - Ischial Bone Gram Stain - Final 09/19/20 Unknown Bone - Ischial Bone Wound Culture - Final Staphylococcus aureus Enterococcus faecalis Streptococcus mitis/ oralis 09/19/20 Unknown Bone - Ischial Bone Anaerobic Culture - Preliminary Checking for anaerobes, further studies to follow. 09/17/20 14:15 Nasal Secretion SARS-CoV-2 Antigen (Rapid) - Final Physical Exam Narrative General - Alert and more awake. Less sleepy from the surgery. Abdomen - Soft and nondistended. Buttocks - Sacral and left ischial pressure sores are stable. VAC in place. Minimal drainage in the canister. VAC to be changed today. Assessment & Plan Assessment/Plan (1) Pressure sore of left ischium, stage 4: (2) Sacral decubitus ulcer, stage IV: (3) Paraplegia following spinal cord injury: (4) Malignant neoplasm of unspecified kidney, except renal pelvis: (5) Metastatic renal cell carcinoma to bone: (6) Acute postoperative anemia due to expected blood loss: (7) UTI (urinary tract infection) due to urinary indwelling Blount catheter: PLAN: Patient's sacral and left ischial pressure sore wounds are stable. VAC in place. Minimal drainage in the canister. VAC to be changed today. Operative cultures show Staphylococcus aureus and Streptococcus Group G and Streptococcus mitis/oralis in the left ischial wound, soft tissue, and Staphylococcus aureus and Enterococcus and Streptococcus mitis/oralis in the left ischial wound, bone. The sacral wound showed Staphylococcus aureus and Streptococcus mitis/oralis. Continue Vancomycin. Will stop the Zosyn as the Staph and Strept organisms are sensitive to Vancomycin. Pathology is pending. Prealbumin was 3.1. Encourage nutritional supplementation with protein to help the healing process. Patient had postop fever of 100.6. She is now afebrile. Probably respiratory. CXR showed minimal linear atelectasis in the left lung base. Urinalysis showed a UTI. She has an indwelling catheter. Urine culture shows Yeast. Will start Diflucan. She had baseline LFT's on 09/17/20. Patient states she has had chronic urinary infections. They change the catheter every 30 days. Hgb today stable at 10.0. Had PRBC. Preop it was 9.7. Has acute postop anemia due to expected blood loss. No active bleeding noted at this time. Will continue to monitor. I anticipate she will need IV antibiotics at discharge. If two antibiotics are needed, will need to go to transitional care for a couple of weeks. Patient voices understanding. She wants to go home but understands the medical necessity of going to a facility postdischarge for a short time. Since we stopped the Zosyn, she is only on one IV antibiotic, Vancomycin. thinks he can handle the antibiotics at home. Quality Control Associate is looking into the cost of what the patient would have to pay if the antibiotics are done at home versus at a facility.
[2020-09-22] MEDS: Pantoprazole Sodium 40 MG Tablet PO (17:16)
[2020-09-22] MEDS: Lactated Ringers 1,000 ML 100 ML IV (18:53)
[2020-09-22 21:41] VITALS: BP 128/82; PULSE 93; RESP 16; TEMP 36.6; O2SAT 95
[2020-09-22] MEDS: Gabapentin 300 MG Capsule PO (21:45)
[2020-09-22] MEDS: Temazepam 15 MG Capsule 30 MG PO (23:06)
[2020-09-22] MEDS: oxyCODONE 5 MG Tablet 10 MG PO (23:56)
[2020-09-23 01:52] LABS: Hematocrit 33.9 % (37-47); Hemoglobin 10.3 g/dL (12.0-15.0); Mean Corp Hgb Conc 30.4 g/dL (32-36); Mean Corpuscular Hgb 24.6 pg (27.0-32.0); Mean Corpuscular Volume 80.9 fL (81-99); Mean Platelet Vol. 8.8 fl (6.2-12.0); Platelet Count 591 K/mm3 (150-450); RBC Distribution Width CV 19.6 % (11.6-14.6); RBC Distribution Width SD 57.5 fl (35.1-43.9); Red Blood Count 4.19 M/mm3 (4.2-5.4); White Blood Count 9.9 K/mm3 (4.4-11.0)
[2020-09-23] MEDS: Vancomycin IV 1,000 MG/200 ML BAG 200 MG IV (02:03)
[2020-09-23 02:17] LABS: Anion Gap 6 (5-15); BUN 19 mg/dL (7-18); BUN/Creat Ratio 34.1 RATIO (10-20); Calcium,Total 8.3 mg/dL (8.5-10.1); Chloride 111 mmol/L (98-107); Creatinine, Serum 0.56 mg/dL (0.55-1.02); EST Glomerular Filtration Rate 119 mL/min (>60); Est Glom Filt Rate - Afr Amer 144 mL/min (>60); Estimated Creatinine Clearance 103.76 ml/min; Glucose 104 mg/dL (74-106); Potassium 3.6 mmol/L (3.5-5.1); Sodium Level 145 mmol/L (136-145)
[2020-09-23 03:21] VITALS: BP 118/61; PULSE 93; RESP 16; TEMP 36.9; O2SAT 98
[2020-09-23] MEDS: Lactated Ringers 1,000 ML 100 ML IV ×2 (06:04→17:05)
[2020-09-23] MEDS: Levothyroxine 150 MCG Tablet PO (06:05)
[2020-09-23 07:33] VITALS: BP 102/62; PULSE 84; RESP 16; TEMP 37.1; O2SAT 95
[2020-09-23] MEDS: Cholecalciferol (VIT D3) 25 MCG TABLET (1,000 UNITS) PO (07:51)
[2020-09-23] MEDS: Juven (unflavored) Packet 1 PACKET PO ×2 (07:51→17:53)
[2020-09-23] MEDS: Potassium Chloride Oral Tablet 20 MEQ PO ×2 (07:51→17:53)
[2020-09-23] MEDS: Gabapentin 100 MG Capsule PO ×2 (07:51→17:54)
[2020-09-23] MEDS: Calcium (Elemental) 500 MG Tablet PO (07:51)
--- NOTE | 2020-09-23 08:52 | CASEMGMT ---
SHERRON MADRIGAL NOTE: VM left w/Nell on TCU that pt/ agreeable to TCU and for pre-cert to be started Thursday. She was also made aware Dr Mullen anticipates pt will be medically ready for discharge Thursday. VM also included that pt wishes to then return home when HHC able to resume services. D/C Plan: TCU pending medically ready and when pre-cert obtained. Isael GARCIA RN CM
[2020-09-23] MEDS: Carvedilol 3.125 MG TABLET PO ×2 (10:14→21:50)
[2020-09-23] MEDS: Fluconazole 100 MG Tablet 400 MG PO (10:15)
[2020-09-23] MEDS: Furosemide 20 MG Tablet PO ×2 (10:15→17:54)
[2020-09-23] MEDS: Methenamine Hippurate 1 GM Tablet PO ×2 (10:15→21:51)
[2020-09-23] MEDS: Acyclovir 200 MG Capsule 400 MG PO (10:15)
[2020-09-23] MEDS: APIXABAN 5 MG TABLET PO ×2 (10:15→21:50)
[2020-09-23] MEDS: Baclofen 10 MG Tablet 7.5 MG PO ×2 (10:16→21:52)
[2020-09-23 14:37] VITALS: BP 113/71; PULSE 87; RESP 16; TEMP 36.8; O2SAT 97
--- NOTE | 2020-09-23 16:42 | PN.SURG_ITS ---
Subjective Subjective Postop #4 Resting comfortably. Had bowel movement today. Removed VAC and did a saline wet to dry dressing. Can apply the VAC tomorrow. Objective Data Objective Data Vital Signs: Vital Signs Temp Pulse Resp BP Pulse Ox 98.3 F 87 16 113/71 97 09/23/20 14:37 09/23/20 14:37 09/23/20 14:37 09/23/20 14:37 09/23/20 14:37 Oxygen Delivery Method Room Air Weight: 142 lb 1.583 oz Body Mass Index (BMI) 22.9 Intake & Output: Intake and Output for Last 24 Hours 09/21/20 09/22/20 09/23/20 23:59 23:59 23:59 Intake Total 4835 / 4985 3940.41 / 3940.41 1500 / 1500 Output Total 1650 / 1975 3475 / 3475 4500 / 4500 Balance 3185 / 3010 465.41 / 465.41 -3000 / -3000 Lab / Micro Data Attestation: I reviewed the patient's lab results. Result Diagrams: 09/23/20 01:28 09/23/20 01:28 Labs: Laboratory Results - last 24 hr 09/23/20 01:28: Vancomycin Trough 24.0 H 09/23/20 01:28: WBC 9.9, RBC 4.19 L, Hgb 10.3 L, Hct 33.9 L, MCV 80.9 L, MCH 24.6 L, MCHC 30.4 L, RDW Std Deviation 57.5 H, RDW Coeff of Deborah 19.6 H, Plt Count 591 H, MPV 8.8 09/23/20 01:28: Sodium 145, Potassium 3.6, Chloride 111 H, Carbon Dioxide 28.0, Anion Gap 6, BUN 19 H, Creatinine 0.56, Estim Creat Clear Calc 103.76, Est GFR (MDRD) Af Amer 144, Est GFR (MDRD) Non-Af 119, BUN/Creatinine Ratio 34.1 H, Glucose 104, Calcium 8.3 L Micro: Microbiology 09/19/20 Unknown Tissue - Sacral Gram Stain - Final 09/19/20 Unknown Tissue - Sacral Wound Culture - Final Staphylococcus aureus Streptococcus mitis/ oralis 09/19/20 Unknown Tissue - Sacral Anaerobic Culture - Final Anaerobic cocci Bacteroides pyogenes 09/19/20 Unknown Bone - Ischial Bone Gram Stain - Final 09/19/20 Unknown Bone - Ischial Bone Wound Culture - Final Staphylococcus aureus Enterococcus faecalis Streptococcus mitis/ oralis 09/19/20 Unknown Bone - Ischial Bone Anaerobic Culture - Final Anaerobic cocci Bacteroides pyogenes 09/19/20 Unknown Tissue - Ischial Pressure Sore Gram Stain - Final 09/19/20 Unknown Tissue - Ischial Pressure Sore Wound Culture - Final Staphylococcus aureus Streptococcus group G Streptococcus mitis/ oralis 09/19/20 Unknown Tissue - Ischial Pressure Sore Anaerobic Culture - Final Anaerobic cocci Bacteroides pyogenes 09/20/20 13:00 Urine Catheter - Blount Urine Culture - Final Yeast, not Jessica albicans 09/17/20 14:15 Nasal Secretion SARS-CoV-2 Antigen (Rapid) - Final Physical Exam Narrative General - Alert and more awake. Less sleepy from the surgery. Abdomen - Soft and nondistended. Buttocks - Sacral and left ischial pressure sores are stable. Had bowel movement toda and the VAC was removed. The wounds were cleansed and a saline wet to dry dressing was applied. The VAC will be placed tomorrow. Assessment & Plan Assessment/Plan (1) Pressure sore of left ischium, stage 4: (2) Sacral decubitus ulcer, stage IV: (3) Paraplegia following spinal cord injury: (4) Malignant neoplasm of unspecified kidney, except renal pelvis: (5) Metastatic renal cell carcinoma to bone: (6) Acute postoperative anemia due to expected blood loss: (7) UTI (urinary tract infection) due to urinary indwelling Blount catheter: (8) Atelectasis of left lung: PLAN: Patient's sacral and left ischial pressure sore wounds are stable. Had bowel movement today. VAC was removed and the wounds cleansed. Saline wet to dry dressings were placed. The VAC will be applied tomorrow. Operative cultures show Staphylococcus aureus and Streptococcus Group G and Streptococcus mitis/oralis and Anaerobic cocci and Bacteroides pyogenes in the left ischial wound, soft tissue, and Staphylococcus aureus and Enterococcus and Streptococcus mitis/oralis and Anaerobic cocci and Bacteroides pyogenes in the left ischial wound, bone. The sacral wound showed Staphylococcus aureus and Streptococcus mitis/oralis and Anaerobic cocci and Bacteroides pyogenes. Continue Vancomycin. The Zosyn was stopped as the Staph and Strept organisms are sensitive to Vancomycin. Will add Flagyl po for the Anaerobes. Pathology is pending. Prealbumin was 3.1. Encourage nutritional supplementation with protein to help the healing process. Patient had postop fever of 100.6. She is now afebrile. Probably respiratory. CXR showed minimal linear atelectasis in the left lung base. Urinalysis showed a UTI. She has an indwelling catheter. Urine culture shows Yeast. Will start Diflucan po. She had baseline LFT's on 09/17/20. Patient states she has had chronic urinary infections. They change the catheter every 30 days. Hgb today slightly increased to 10.3 as compared to 10.0 yesterday. Had PRBC. Preop it was 9.7. Has acute postop anemia due to expected blood loss. No active bleeding noted at this time. Will continue to monitor. I anticipate she will need IV antibiotics at discharge. If two antibiotics are needed, will need to go to transitional care for a couple of weeks. Patient voices understanding. She wants to go home but understands the medical necessity of going to a facility postdischarge for a short time. Since we stopped the Zosyn, she is only on one IV antibiotic, Vancomycin. The Diflucan and Flagyl can be taken or ally after discharge. thinks he can handle the IV antibiotics at home. Equal Opportunity Representative is looking into the cost of what the patient would have to pay if the antibiotics are done at home versus at a facility and then determine the possibility of discharge home. Home health is already arranged for the VAC changes.
[2020-09-23] MEDS: metroNIDAZOLE 500 MG Tablet PO (17:53)
[2020-09-23] MEDS: Pantoprazole Sodium 40 MG Tablet PO (17:54)
[2020-09-23 21:42] VITALS: BP 121/69; PULSE 101; RESP 16; TEMP 37.6; O2SAT 95
[2020-09-23] MEDS: Gabapentin 300 MG Capsule PO (21:53)
[2020-09-23] MEDS: Temazepam 15 MG Capsule 30 MG PO (21:58)
[2020-09-23] MEDS: Methadone 10 MG Tablet PO (21:58)
[2020-09-23] MEDS: MELATONIN 10 MG TABLET 20 MG PO (23:55)
[2020-09-24] MEDS: Lactated Ringers 1,000 ML 100 ML IV ×2 (02:19→13:27)
[2020-09-24 02:22] VITALS: BP 93/60; PULSE 87; RESP 16; TEMP 37; O2SAT 96
[2020-09-24] MEDS: Levothyroxine 75 MCG Tablet PO (05:30)
[2020-09-24 07:32] VITALS: PULSE 90
[2020-09-24 07:41] VITALS: BP 140/78; PULSE 81; RESP 18; TEMP 36.7; O2SAT 94
[2020-09-24] MEDS: Juven (unflavored) Packet 1 PACKET PO ×2 (07:47→17:14)
[2020-09-24] MEDS: Cholecalciferol (VIT D3) 25 MCG TABLET (1,000 UNITS) PO (07:48)
[2020-09-24] MEDS: Gabapentin 100 MG Capsule PO ×2 (07:48→17:16)
[2020-09-24] MEDS: Furosemide 20 MG Tablet PO ×2 (07:48→17:16)
[2020-09-24] MEDS: Methenamine Hippurate 1 GM Tablet PO ×2 (07:48→21:17)
[2020-09-24] MEDS: APIXABAN 5 MG TABLET PO ×2 (07:48→21:17)
[2020-09-24] MEDS: Calcium (Elemental) 500 MG Tablet PO (07:49)
[2020-09-24] MEDS: Potassium Chloride Oral Tablet 20 MEQ PO ×2 (07:49→17:14)
[2020-09-24] MEDS: metroNIDAZOLE 500 MG Tablet PO ×3 (07:49→13:26)
[2020-09-24] MEDS: Carvedilol 3.125 MG TABLET PO ×2 (07:56→21:17)
--- NOTE | 2020-09-24 08:09 | PCM.RX.CS ---
Consult Pharmacy has been consulted to manage selected antiobiotic: Vancomycin Type of Consult: Follow-up Suspected Infection: Skin/Soft tissue Prior Doses of Antibiotics Received/Current Regimen: 1 GM IV Q12H. Labs: Sodium 145 mmol/L (136-145) 09/23/20 01:28 Potassium 3.6 mmol/L (3.5-5.1) 09/23/20 01:28 Chloride 111 mmol/L (98-107) H 09/23/20 01:28 Carbon Dioxide 28.0 mmol/L (21.0-32.0) 09/23/20 01:28 Anion Gap 6 (5-15) 09/23/20 01:28 BUN 19 mg/dL (7-18) H 09/23/20 01:28 Creatinine 0.56 mg/dL (0.55-1.02) 09/23/20 01:28 Est GFR (MDRD) Af Amer 144 mL/min (>60) 09/23/20 01:28 Est GFR (MDRD) Non-Af 119 mL/min (>60) 09/23/20 01:28 BUN/Creatinine Ratio 34.1 RATIO (10-20) H 09/23/20 01:28 Glucose 104 mg/dL (74-106) 09/23/20 01:28 Vancomycin Trough 24.0 ug/mL (5.0-15.0) H 09/23/20 01:28 Random Vancomycin 16.0 ug/mL (0.0-15.0) H 09/24/20 05:48 Microbiology: Microbiology 09/19/20 Unknown Tissue - Sacral Gram Stain - Final 09/19/20 Unknown Tissue - Sacral Wound Culture - Final Staphylococcus aureus Streptococcus mitis/ oralis 09/19/20 Unknown Tissue - Sacral Anaerobic Culture - Final Anaerobic cocci Bacteroides pyogenes 09/19/20 Unknown Bone - Ischial Bone Gram Stain - Final 09/19/20 Unknown Bone - Ischial Bone Wound Culture - Final Staphylococcus aureus Enterococcus faecalis Streptococcus mitis/ oralis 09/19/20 Unknown Bone - Ischial Bone Anaerobic Culture - Final Anaerobic cocci Bacteroides pyogenes 09/19/20 Unknown Tissue - Ischial Pressure Sore Gram Stain - Final 09/19/20 Unknown Tissue - Ischial Pressure Sore Wound Culture - Final Staphylococcus aureus Streptococcus group G Streptococcus mitis/ oralis 09/19/20 Unknown Tissue - Ischial Pressure Sore Anaerobic Culture - Final Anaerobic cocci Bacteroides pyogenes 09/20/20 13:00 Urine Catheter - Blount Urine Culture - Final Yeast, not Jessica albicans 09/17/20 14:15 Nasal Secretion SARS-CoV-2 Antigen (Rapid) - Final Weight used for dosin.5 kg Estimated Creatinine Clearance: ~104ml/min Goal Trough: 15-20 mcg/mL Pharmacy Plan for Drug Dosing: Today's random level was 16.0 (down from 24 on 09.23.20). Will resume dosing but at a decreased dose of 750mg iv q12h. Trough level ordered for 09.25.20 before 4th dose of new regimen. Pharmacy Service will continue to monitor and adjust dosing as required. Follow-Up Labs: Trough Vancomycin - 09.25.20 @2130 before 2200 dose
[2020-09-24] MEDS: Acyclovir 200 MG Capsule 400 MG PO (09:31)
[2020-09-24] MEDS: Polyethylene Glycol 3350 17 GM PACKET PO (09:32)
[2020-09-24] MEDS: Fluconazole 100 MG Tablet 400 MG PO (09:36)
[2020-09-24] MEDS: Baclofen 10 MG Tablet 7.5 MG PO ×2 (09:37→21:17)
--- NOTE | 2020-09-24 12:30 | CASEMGMT ---
SHERRON MADRIGAL in to pt room, pt lying in bed in no distress with at bedside. Pt states she would like to return home. states he is able and willing to learn IV antibiotic administration. He states his work is willing to be flexible with him for caring for his . Pt would also be willing to learn with extension tubing. SHERRON MADRIGAL called [facility] and spoke with Kathleen. They are able to see pt at the earliest on for the 10am dose of vanco. They are asking that wound vac schedule be on //Thu as well. Notified via [facility] of [facility] availability. TC to [facility], spoke with Fabby. She is requesting clinical info, labs and med list to be faxed. Faxed at this time. [facility] already has script for IV antibiotic. SHERRON MADRIGAL to follow.
--- NOTE | 2020-09-24 13:52 | NURSING ---
wound photo: sacrum/left ischium
--- NOTE | 2020-09-24 14:21 | CASEMGMT ---
Social Work Note SW updated that pt is requesting discharge home. SW placed a call to Nell in TCU and updated her. Maida Valdovinos SET UP / OPERATOR, [employer]
[2020-09-24 14:24] VITALS: BP 100/61; PULSE 90; PULSE 93; RESP 16; TEMP 36.7; O2SAT 94
[2020-09-24] MEDS: Pantoprazole Sodium 40 MG Tablet PO (17:16)
--- NOTE | 2020-09-24 19:55 | PN.SURG_ITS ---
Subjective Subjective Postop #5 Patient is resting comfortably. Objective Data Objective Data Vital Signs: Vital Signs Temp Pulse Resp BP Pulse Ox 98.1 F 93 16 100/61 94 09/24/20 14:24 09/24/20 14:24 09/24/20 14:24 09/24/20 14:24 09/24/20 14:24 Oxygen Delivery Method Room Air Weight: 142 lb 3.17 oz Body Mass Index (BMI) 22.9 Intake & Output: Intake and Output for Last 24 Hours 09/22/20 09/23/20 09/24/20 23:59 23:59 23:59 Intake Total 3940.41 / 3940.41 2800 / 2800 2328.33 / 2328.33 Output Total 3475 / 3475 5750 / 5750 2300 / 2300 Balance 465.41 / 465.41 -2950 / -2950 28.33 / 28.33 Lab / Micro Data Attestation: I reviewed the patient's lab results. Result Diagrams: 09/23/20 01:28 09/26/20 09:34 Labs: Laboratory Results - last 24 hr 09/24/20 05:48: Random Vancomycin 16.0 H Micro: Microbiology 09/19/20 Unknown Tissue - Sacral Gram Stain - Final 09/19/20 Unknown Tissue - Sacral Wound Culture - Final Staphylococcus aureus Streptococcus mitis/ oralis 09/19/20 Unknown Tissue - Sacral Anaerobic Culture - Final Anaerobic cocci Bacteroides pyogenes 09/19/20 Unknown Bone - Ischial Bone Gram Stain - Final 09/19/20 Unknown Bone - Ischial Bone Wound Culture - Final Staphylococcus aureus Enterococcus faecalis Streptococcus mitis/ oralis 09/19/20 Unknown Bone - Ischial Bone Anaerobic Culture - Final Anaerobic cocci Bacteroides pyogenes 09/19/20 Unknown Tissue - Ischial Pressure Sore Gram Stain - Final 09/19/20 Unknown Tissue - Ischial Pressure Sore Wound Culture - Final Staphylococcus aureus Streptococcus group G Streptococcus mitis/ oralis 09/19/20 Unknown Tissue - Ischial Pressure Sore Anaerobic Culture - Final Anaerobic cocci Bacteroides pyogenes 09/20/20 13:00 Urine Catheter - Blount Urine Culture - Final Yeast, not Jessica albicans 09/17/20 14:15 Nasal Secretion SARS-CoV-2 Antigen (Rapid) - Final Physical Exam Narrative General - Alert and more awake. Abdomen - Soft and nondistended. Buttocks - Sacral and left ischial pressure sores are stable. VAC placed today. Assessment & Plan Assessment/Plan (1) Sacral decubitus ulcer, stage IV: (2) Pressure sore of left ischium, stage 4: (3) Paraplegia following spinal cord injury: (4) Malignant neoplasm of unspecified kidney, except renal pelvis: (5) Metastatic renal cell carcinoma to bone: (6) Acute postoperative anemia due to expected blood loss: (7) UTI (urinary tract infection) due to urinary indwelling Blount catheter: (8) Atelectasis of left lung: PLAN: Patient's sacral and left ischial pressure sore wounds are stable. VAC placed today. VAC has been approved. Awaiting Home Health availability. They can't see patient until . So will plan on discharge on Thursday. Operative cultures show Staphylococcus aureus and Streptococcus Group G and Streptococcus mitis/oralis and Anaerobic cocci and Bacteroides pyogenes in the left ischial wound, soft tissue, and Staphylococcus aureus and Enterococcus and Streptococcus mitis/oralis and Anaerobic cocci and Bacteroides pyogenes in the left ischial wound, bone. The sacral wound showed Staphylococcus aureus and Streptococcus mitis/oralis and Anaerobic cocci and Bacteroides pyogenes. Contin ue Vancomycin. The Zosyn was stopped as the Staph and Strept organisms are sensitive to Vancomycin. Will add Flagyl po for the Anaerobes. Pathology was positive for acute and chronic osteomyelitis. Prealbumin was 3.1. Encourage nutritional supplementation with protein to help the healing process. Patient had postop fever of 100.6. She is now afebrile. Probably respiratory. CXR showed minimal linear atelectasis in the left lung base. Urinalysis showed a UTI. She has an indwelling catheter. Urine culture shows Yeast. Will start Diflucan po. She had baseline LFT's on 09/17/20. Patient states she has had chronic urinary infections. They change the catheter every 30 days. Hgb stable at 10.3. Had PRBC. Preop it was 9.7. Has acute postop anemia due to expected blood loss. No active bleeding noted at this time. Will continue to monitor. I anticipate she will need IV antibiotics at discharge. If two antibiotics are needed, will need to go to transitional care for a couple of weeks. Patient voices understanding. She wants to go home but understands the medical necessity of going to a facility postdischarge for a short time. Since we stopped the Zosyn, she is only on one IV antibiotic, Vancomycin. The Diflucan and Flagyl can be taken orally after discharge. thinks he can handle the IV antibiotics at home. Infusion company has been arranged. Awaiting availability of Home Health at discharge.
[2020-09-24 21:10] VITALS: BP 104/65; PULSE 92; RESP 18; TEMP 37.1; O2SAT 95
[2020-09-24] MEDS: Methadone 10 MG Tablet PO (21:17)
[2020-09-24] MEDS: Gabapentin 300 MG Capsule PO (21:17)
[2020-09-24] MEDS: Temazepam 15 MG Capsule 30 MG PO (22:17)
[2020-09-24] MEDS: MELATONIN 10 MG TABLET 20 MG PO (22:17)
[2020-09-25] MEDS: Lactated Ringers 1,000 ML 100 ML IV ×3 (00:15→23:00)
[2020-09-25 04:30] VITALS: BP 102/60; PULSE 74; RESP 16; TEMP 37.1; O2SAT 98
[2020-09-25] MEDS: Levothyroxine 75 MCG Tablet PO (04:36)
[2020-09-25 08:10] VITALS: BP 122/73; PULSE 88; RESP 16; TEMP 37.3; O2SAT 95
[2020-09-25] MEDS: metroNIDAZOLE 500 MG Tablet PO ×3 (08:17→16:24)
[2020-09-25] MEDS: Gabapentin 100 MG Capsule PO ×2 (08:17→16:22)
[2020-09-25] MEDS: Juven (unflavored) Packet 1 PACKET PO ×2 (08:17→16:24)
[2020-09-25] MEDS: APIXABAN 5 MG TABLET PO ×2 (08:18→22:56)
[2020-09-25] MEDS: Fluconazole 100 MG Tablet 400 MG PO (08:18)
[2020-09-25] MEDS: Carvedilol 3.125 MG TABLET PO ×2 (08:18→22:59)
[2020-09-25] MEDS: Pantoprazole Sodium 40 MG Tablet PO (08:19)
[2020-09-25] MEDS: Furosemide 20 MG Tablet PO ×2 (08:19→16:25)
[2020-09-25] MEDS: Calcium (Elemental) 500 MG Tablet PO (08:19)
[2020-09-25] MEDS: Potassium Chloride Oral Tablet 20 MEQ PO ×2 (08:21→16:25)
[2020-09-25] MEDS: Cholecalciferol (VIT D3) 25 MCG TABLET (1,000 UNITS) PO (08:21)
[2020-09-25] MEDS: Methenamine Hippurate 1 GM Tablet PO ×2 (08:21→22:56)
--- NOTE | 2020-09-25 09:25 | CASEMGMT ---
TC to [facility] to confirm SAJI for morning for 10am IV dose. Spoke with Ewa then PCM, Kiet. Kiet is aware that pt is willing to learn IV, ok to do vac change on / and Thursday, infusion company is [facility] and pt will dc tomorrow after 10am dose. Faxed referral information at this time. Pt updated on plans as well.
[2020-09-25] MEDS: Baclofen 10 MG Tablet 7.5 MG PO ×2 (09:33→22:57)
[2020-09-25] MEDS: Acyclovir 200 MG Capsule 400 MG PO (09:33)
--- NOTE | 2020-09-25 13:35 | PCM.PN.SRG ---
Subjective Subjective Postop #6 Patient is resting comfortably. Objective Data Objective Data Vital Signs: Vital Signs Temp Pulse Resp BP Pulse Ox 99.1 F 88 16 122/73 H 95 09/25/20 08:10 09/25/20 08:10 09/25/20 08:10 09/25/20 08:10 09/25/20 08:10 Oxygen Delivery Method Room Air Weight: 142 lb 3.17 oz Body Mass Index (BMI) 22.9 Intake & Output: Intake and Output for Last 24 Hours 09/23/20 09/24/20 09/25/20 23:59 23:59 23:59 Intake Total 2800 / 2800 2593.33 / 2593.33 2230.00 / 2230.00 Output Total 5750 / 5750 3425 / 3425 Balance -2950 / -2950 -831.67 / -831.67 2230.00 / 2230.00 Lab / Micro Data Attestation: I reviewed the patient's lab results. Result Diagrams: 09/23/20 01:28 09/26/20 09:34 Micro: Microbiology 09/19/20 Unknown Tissue - Sacral Gram Stain - Final 09/19/20 Unknown Tissue - Sacral Wound Culture - Final Staphylococcus aureus Streptococcus mitis/ oralis 09/19/20 Unknown Tissue - Sacral Anaerobic Culture - Final Anaerobic cocci Bacteroides pyogenes 09/19/20 Unknown Bone - Ischial Bone Gram Stain - Final 09/19/20 Unknown Bone - Ischial Bone Wound Culture - Final Staphylococcus aureus Enterococcus faecalis Streptococcus mitis/ oralis 09/19/20 Unknown Bone - Ischial Bone Anaerobic Culture - Final Anaerobic cocci Bacteroides pyogenes 09/19/20 Unknown Tissue - Ischial Pressure Sore Gram Stain - Final 09/19/20 Unknown Tissue - Ischial Pressure Sore Wound Culture - Final Staphylococcus aureus Streptococcus group G Streptococcus mitis/ oralis 09/19/20 Unknown Tissue - Ischial Pressure Sore Anaerobic Culture - Final Anaerobic cocci Bacteroides pyogenes 09/20/20 13:00 Urine Catheter - Blount Urine Culture - Final Yeast, not Jessica albicans 09/17/20 14:15 Nasal Secretion SARS-CoV-2 Antigen (Rapid) - Final Physical Exam Narrative General - Alert and more awake. Abdomen - Soft and nondistended. Buttocks - Sacral and left ischial pressure sores are stable. VAC in place. Minimal drainage in the canister. Assessment & Plan Assessment/Plan (1) Sacral decubitus ulcer, stage IV: (2) Pressure sore of left ischium, stage 4: (3) Osteomyelitis of pelvis: (4) Paraplegia following spinal cord injury: (5) Malignant neoplasm of unspecified kidney, except renal pelvis: (6) Metastatic renal cell carcinoma to bone: (7) Acute postoperative anemia due to expected blood loss: (8) UTI (urinary tract infection) due to urinary indwelling Blount catheter: (9) Atelectasis of left lung: PLAN: Patient's sacral and left ischial pressure sore wounds are stable. VAC in place. Minimal drainage in the canister. VAC has been approved. Awaiting Home Health availability. They can't see patient until . So will plan on discharge on Thursday. Operative cultures show Staphylococcus aureus and Streptococcus Group G and Streptococcus mitis/oralis and Anaerobic cocci and Bacteroides pyogenes in the left ischial wound, soft tissue, and Staphylococcus aureus and Enterococcus and Streptococcus mitis/oralis and Anaerobic cocci and Bacteroides pyogenes in the left ischial wound, bone. The sacral wound showed Staphylococcus aureus and Streptococcus mitis/oralis and Anaerobic cocci and Bacteroides pyogenes. Continue Vancomycin. The Zosyn was stopped as the Staph and Strept organisms are sensitive to Vancomycin. Flagyl po was added for the Anaerobes. Pathology was positive for acute and chronic osteomyelitis. Prealbumin was 3.1. Encourage nutritional supplementation with protein to help the healing process. Patient had postop fever of 100.6. She is now afebrile. Probably respiratory. CXR showed minimal linear atelectasis in the left lung base. Urinalysis showed a UTI. She has an indwelling catheter. Urine culture shows Yeast. Diflucan po was added for the yeast. She had baseline LFT's on 09/17/20. Patient states she has had chronic urinary infections. They change the catheter every 30 days. Hgb stable at 10.3. Had PRBC. Preop it was 9.7. Has acute postop anemia due to expected blood loss that has resolved. No active bleeding noted at this time. Will continue to monitor. I anticipate she will need IV antibiotics at discharge. If two antibiotics are needed, will need to go to transitional care for a couple of weeks. Patient voices understanding. She wants to go home but understands the medical necessity of going to a facility postdischarge for a short time. Since we stopped the Zosyn, she is only on one IV antibiotic, Vancomycin. The Diflucan and Flagyl can be taken orally after discharge. thinks he can handle the IV antibiotics at home. Infusion company has been arranged. Awaiting availability of Home Health at discharge.
[2020-09-25 14:20] VITALS: BP 108/67; PULSE 80; PULSE 91; RESP 18; TEMP 37.3; O2SAT 94
[2020-09-25] MEDS: Ondansetron 4 MG/2 ML Vial IV (19:40)
[2020-09-25 20:20] VITALS: BP 105/53; PULSE 62; RESP 16; TEMP 37.1; O2SAT 98
[2020-09-25 22:24] LABS: Vancomycin, Trough Level 22.6 ug/mL (5.0-15.0)
[2020-09-25] MEDS: MELATONIN 10 MG TABLET 20 MG PO (22:57)
[2020-09-25] MEDS: Gabapentin 300 MG Capsule PO (22:58)
[2020-09-25] MEDS: Temazepam 15 MG Capsule 30 MG PO (22:58)
--- NOTE | 2020-09-26 00:50 | PCM.RX.CS ---
Consult Pharmacy has been consulted to manage selected antiobiotic: Vancomycin Type of Consult: Follow-up Suspected Infection: Skin/Soft tissue Labs: Sodium 145 mmol/L (136-145) 09/23/20 01:28 Potassium 3.6 mmol/L (3.5-5.1) 09/23/20 01:28 Chloride 111 mmol/L (98-107) H 09/23/20 01:28 Carbon Dioxide 28.0 mmol/L (21.0-32.0) 09/23/20 01:28 Anion Gap 6 (5-15) 09/23/20 01:28 BUN 19 mg/dL (7-18) H 09/23/20 01:28 Creatinine 0.56 mg/dL (0.55-1.02) 09/23/20 01:28 Est GFR (MDRD) Af Amer 144 mL/min (>60) 09/23/20 01:28 Est GFR (MDRD) Non-Af 119 mL/min (>60) 09/23/20 01:28 BUN/Creatinine Ratio 34.1 RATIO (10-20) H 09/23/20 01:28 Glucose 104 mg/dL (74-106) 09/23/20 01:28 Vancomycin Trough 22.6 ug/mL (5.0-15.0) H 09/25/20 21:23 Random Vancomycin 16.0 ug/mL (0.0-15.0) H 09/24/20 05:48 Microbiology: Microbiology 09/19/20 Unknown Tissue - Sacral Gram Stain - Final 09/19/20 Unknown Tissue - Sacral Wound Culture - Final Staphylococcus aureus Streptococcus mitis/ oralis 09/19/20 Unknown Tissue - Sacral Anaerobic Culture - Final Anaerobic cocci Bacteroides pyogenes 09/19/20 Unknown Bone - Ischial Bone Gram Stain - Final 09/19/20 Unknown Bone - Ischial Bone Wound Culture - Final Staphylococcus aureus Enterococcus faecalis Streptococcus mitis/ oralis 09/19/20 Unknown Bone - Ischial Bone Anaerobic Culture - Final Anaerobic cocci Bacteroides pyogenes 09/19/20 Unknown Tissue - Ischial Pressure Sore Gram Stain - Final 09/19/20 Unknown Tissue - Ischial Pressure Sore Wound Culture - Final Staphylococcus aureus Streptococcus group G Streptococcus mitis/ oralis 09/19/20 Unknown Tissue - Ischial Pressure Sore Anaerobic Culture - Final Anaerobic cocci Bacteroides pyogenes 09/20/20 13:00 Urine Catheter - Blount Urine Culture - Final Yeast, not Jessica albicans 09/17/20 14:15 Nasal Secretion SARS-CoV-2 Antigen (Rapid) - Final Goal Trough: 15-20 mcg/mL Pharmacy Plan for Drug Dosing: Pharmacy Service will continue to monitor and adjust dosing as required. TROUGH 22.6 HOLD DOSE AND DRAW RANDOM LEVEL IN 12 HOURS Follow-Up Labs: Trough Vancomycin Labs to be done on [date and time ordered]: 09/26 @ 0986
[2020-09-26 02:20] VITALS: BP 115/64; PULSE 77; RESP 16; TEMP 36.8; O2SAT 95
[2020-09-26] MEDS: Methadone 10 MG Tablet PO (02:52)
[2020-09-26] MEDS: Levothyroxine 75 MCG Tablet PO (06:22)
[2020-09-26] MEDS: Lactated Ringers 1,000 ML 100 ML IV (06:22)
[2020-09-26 08:10] VITALS: BP 90/55; PULSE 83; RESP 16; TEMP 36.8; O2SAT 98
[2020-09-26] MEDS: Gabapentin 100 MG Capsule PO (08:17)
[2020-09-26] MEDS: Cholecalciferol (VIT D3) 25 MCG TABLET (1,000 UNITS) PO (08:17)
[2020-09-26] MEDS: Potassium Chloride Oral Tablet 20 MEQ PO (08:17)
[2020-09-26] MEDS: Calcium (Elemental) 500 MG Tablet PO (08:17)
[2020-09-26] MEDS: metroNIDAZOLE 500 MG Tablet PO ×2 (08:17→11:46)
[2020-09-26 09:45] VITALS: PULSE 92
[2020-09-26] MEDS: Carvedilol 3.125 MG TABLET PO (09:57)
[2020-09-26] MEDS: Methenamine Hippurate 1 GM Tablet PO (09:57)
[2020-09-26] MEDS: Fluconazole 100 MG Tablet 400 MG PO (09:57)
[2020-09-26] MEDS: Furosemide 20 MG Tablet PO (09:57)
[2020-09-26] MEDS: Baclofen 10 MG Tablet 7.5 MG PO (09:57)
[2020-09-26] MEDS: APIXABAN 5 MG TABLET PO (09:57)
[2020-09-26] MEDS: Polyethylene Glycol 3350 17 GM PACKET PO (09:57)
[2020-09-26] MEDS: Acyclovir 200 MG Capsule 400 MG PO (09:57)
[2020-09-26 10:14] LABS: Vancomycin, Random Level 14.3 ug/mL (0.0-15.0)
[2020-09-26 10:41] VITALS: BP 97/56; PULSE 89; RESP 18; TEMP 37.1; O2SAT 98
[2020-09-26 12:52] LABS: Creatinine, Serum 0.47 mg/dL (0.55-1.02); EST Glomerular Filtration Rate 144 mL/min (>60); Est Glom Filt Rate - Afr Amer 174 mL/min (>60); Estimated Creatinine Clearance 123.63 ml/min
--- NOTE | 2020-09-26 12:59 | PCM.RX.CS ---
Consult Pharmacy has been consulted to manage selected antiobiotic: Vancomycin Type of Consult: Follow-up Suspected Infection: Skin/Soft tissue Prior Doses of Antibiotics Received/Current Regimen: previous dose was 750mg q12h until that was held yesterday after the morning dose Labs: Sodium 145 mmol/L (136-145) 09/23/20 01:28 Potassium 3.6 mmol/L (3.5-5.1) 09/23/20 01:28 Chloride 111 mmol/L (98-107) H 09/23/20 01:28 Carbon Dioxide 28.0 mmol/L (21.0-32.0) 09/23/20 01:28 Anion Gap 6 (5-15) 09/23/20 01:28 BUN 19 mg/dL (7-18) H 09/23/20 01:28 Creatinine 0.47 mg/dL (0.55-1.02) L 09/26/20 09:34 Est GFR (MDRD) Af Amer 174 mL/min (>60) 09/26/20 09:34 Est GFR (MDRD) Non-Af 144 mL/min (>60) 09/26/20 09:34 BUN/Creatinine Ratio 34.1 RATIO (10-20) H 09/23/20 01:28 Glucose 104 mg/dL (74-106) 09/23/20 01:28 Vancomycin Trough 22.6 ug/mL (5.0-15.0) H 09/25/20 21:23 Random Vancomycin 14.3 ug/mL (0.0-15.0) 09/26/20 09:34 Microbiology: Microbiology 09/19/20 Unknown Tissue - Sacral Gram Stain - Final 09/19/20 Unknown Tissue - Sacral Wound Culture - Final Staphylococcus aureus Streptococcus mitis/ oralis 09/19/20 Unknown Tissue - Sacral Anaerobic Culture - Final Anaerobic cocci Bacteroides pyogenes 09/19/20 Unknown Bone - Ischial Bone Gram Stain - Final 09/19/20 Unknown Bone - Ischial Bone Wound Culture - Final Staphylococcus aureus Enterococcus faecalis Streptococcus mitis/ oralis 09/19/20 Unknown Bone - Ischial Bone Anaerobic Culture - Final Anaerobic cocci Bacteroides pyogenes 09/19/20 Unknown Tissue - Ischial Pressure Sore Gram Stain - Final 09/19/20 Unknown Tissue - Ischial Pressure Sore Wound Culture - Final Staphylococcus aureus Streptococcus group G Streptococcus mitis/ oralis 09/19/20 Unknown Tissue - Ischial Pressure Sore Anaerobic Culture - Final Anaerobic cocci Bacteroides pyogenes 09/20/20 13:00 Urine Catheter - Blount Urine Culture - Final Yeast, not Jessica albicans 09/17/20 14:15 Nasal Secretion SARS-CoV-2 Antigen (Rapid) - Final Weight used for dosin.5 kg Estimated Creatinine Clearance: 124ml/min Goal Trough: 15-20 mcg/mL Pharmacy Plan for Drug Dosing: The vancomycin random level drawn at 09:34 today was 14.3 (drawn 24 hours after the last dose of 750mg). This is back below 20 so will restart at 1250mg IV q24h. Q12h dosing has resulted in troughs above 20 in recent days so q24h dosing should help to keep it in range. Repeat another trough before the 3rd new dose per protocol. Pharmacy Service will continue to monitor and adjust dosing as required. Follow-Up Labs: Trough Vancomycin Labs to be done on [date and time ordered]: 09/28/20 11:30
--- NOTE | 2020-09-26 14:29 | CASEMGMT ---
TC to [facility], spoke with Fabby pt is all set up for IV to start tomorrow at 10am. Will fax dc instructions when available. TC to [facility], spoke with Kathleen pt is set up for 10am resumption. Will fax dc instructions when available.
[2020-09-26] MEDS: 0.9% Saline Lock 10 ML Syringe IV (15:22)
--- NOTE | 2020-09-26 15:31 | PN.SURG_ITS ---
Subjective Subjective Postop #7 Patient resting comfortably in bed. Wound VAC in place. Patient wants to be discharged home today. Objective Data Objective Data Vital Signs: Vital Signs Temp Pulse Resp BP Pulse Ox 98.8 F 89 18 97/56 L 98 09/26/20 10:41 09/26/20 10:41 09/26/20 10:41 09/26/20 10:41 09/26/20 10:41 Oxygen Delivery Method Room Air Weight: 142 lb 3.17 oz Body Mass Index (BMI) 22.9 Intake & Output: Intake and Output for Last 24 Hours 09/24/20 09/25/20 09/26/20 23:59 23:59 23:59 Intake Total 2593.33 / 2593.33 3230.00 / 3530.00 2306.67 / 2306.67 Output Total 3425 / 3425 850 / 1850 1925 / 1925 Balance -831.67 / -831.67 2380.00 / 1680.00 381.67 / 381.67 Lab / Micro Data Result Diagrams: 09/23/20 01:28 09/26/20 09:34 Labs: Laboratory Results - last 24 hr 09/25/20 21:23: Vancomycin Trough 22.6 H 09/26/20 09:34: Random Vancomycin 14.3 09/26/20 09:34: Creatinine 0.47 L, Estim Creat Clear Calc 123.63, Est GFR (MDRD) Af Amer 174, Est GFR (MDRD) Non-Af 144 Micro: Microbiology 09/19/20 Unknown Tissue - Sacral Gram Stain - Final 09/19/20 Unknown Tissue - Sacral Wound Culture - Final Staphylococcus aureus Streptococcus mitis/ oralis 09/19/20 Unknown Tissue - Sacral Anaerobic Culture - Final Anaerobic cocci Bacteroides pyogenes 09/19/20 Unknown Bone - Ischial Bone Gram Stain - Final 09/19/20 Unknown Bone - Ischial Bone Wound Culture - Final Staphylococcus aureus Enterococcus faecalis Streptococcus mitis/ oralis 09/19/20 Unknown Bone - Ischial Bone Anaerobic Culture - Final Anaerobic cocci Bacteroides pyogenes 09/19/20 Unknown Tissue - Ischial Pressure Sore Gram Stain - Final 09/19/20 Unknown Tissue - Ischial Pressure Sore Wound Culture - Final Staphylococcus aureus Streptococcus group G Streptococcus mitis/ oralis 09/19/20 Unknown Tissue - Ischial Pressure Sore Anaerobic Culture - Final Anaerobic cocci Bacteroides pyogenes 09/20/20 13:00 Urine Catheter - Blount Urine Culture - Final Yeast, not Jessica albicans 09/17/20 14:15 Nasal Secretion SARS-CoV-2 Antigen (Rapid) - Final Physical Exam Const oriented x3 and no apparent distress Resp normal respiratory effort Cardio regular rate GI soft to palpation and non-tender Bladder / Kidney Exam: catheter in place Extremity no calf tenderness Skin Wound Narrative: Sacral and left ischial pressure sores are stable. Wound VAC dressing intact and to 150 mmHg suction. Neuro oriented x3 Assessment & Plan Assessment/Plan (1) Pressure sore of left ischium, stage 4: (2) Sacral decubitus ulcer, stage IV: (3) Paraplegia following spinal cord injury: (4) Malignant neoplasm of unspecified kidney, except renal pelvis: (5) Metastatic renal cell carcinoma to bone: (6) Acute postoperative anemia due to expected blood loss: (7) UTI (urinary tract infection) due to urinary indwelling Blount catheter: (8) Atelectasis of left lung: PLAN: Patient's sacral and left ischial pressure sore wounds are stable. VAC dressing intact and to 150 mmHg. Operative cultures show Staphylococcus aureus and Streptococcus Group G and Streptococcus mitis/oralis and Anaerobic cocci and Bacteroides pyogenes in the left ischial wound, soft tissue, and Staphylococcus aureus and Enterococcus faecalis and Streptococcus mitis/oralis and Anaerobic cocci and Bacteroides pyogenes in the left ischial wound, bone. The sacral wound showed Staphylococcus aureus and Streptococcus mitis/oralis and Anaerobic cocci and B acteroides pyogenes. Continue Vancomycin. The Zosyn was stopped as the Staph and Strept organisms are sensitive to Vancomycin. Will add Flagyl po for the Anaerobes. Pathology of ischial pressure sore tissue shows acute and chronic inflammation, abscess formation and granulation tissue reaction. Ischial bone with acute and chronic osteomyelitis and reactive changes. Sacral tissue pressure sore excision shows acute and chronic inflammation and granulation tissue reaction. Prealbumin was 3.1. Encourage nutritional supplementation with protein to help the healing process. Patient had postop fever of 100.6. She is now afebrile. Probably respiratory. CXR showed minimal linear atelectasis in the left lung base. Urinalysis showed a UTI. She has an indwelling catheter. Urine culture shows Yeast. Continue Diflucan po. She had baseline LFT's on 09/17/20. Patient states she has had ch ronic urinary infections. They change the catheter every 30 days. Hgb was 10.3 on 09/23/20. Had PRBC. Preop it was 9.7. Has acute postop anemia due to expected blood loss. No active bleeding noted at this time. Will continue to monitor. Will discharge on IV Vancomycin. The Diflucan and Flagyl will be taken orally at discharge. thinks he can handle the IV antibiotics at home. Patient will be discharged to home later today. [facility].
--- NOTE | 2020-09-26 15:31 | PCM.DC ---
Discharge Instructions Diet Discharge Diet: No restrictions (Increase protein intake) and - Activity Discharge Activity: Return to Normal Activity (Do not sit for more than an hour at a time) May resume sexual activity in: No Restrictions Dressing / Incision Call your doctor if your incision/area has: Continuous Slow Oozing, Sudden Increased Bleeding, Increased Pain/ Swelling, Increased Redness, Foul Smelling Discharge and Swelling at the incision site Call your doctor if you observe: Fever of 101 or Higher, Inability to have a bowel movement, Chest pain, Calf discomfort and Uncontrolled pain Cleanse incision/area with: Soap & Water Additional Dressing/Incision Instructions:: Wound VAC dressing to be changed 3 times per week. Wash wound and kip wound with soap and water at the time of the VAC dressing change. Wound VAC to 150 mmHg. No adaptic. Please bring wound VAC sponge and canister to Wound center visits for wound VAC placement. Follow Up Care Please Follow Up With: Desiree When: [facility]10[facility]01/20 [facility] [phone] Test Results: Test results from this visit will be discussed in further detail at your follow-up appointment, if applicable. Discharge Plan Admission Admit Date/Time: 09/20/20 12:21 Attending Provider: Orion Mullen Primary Care Provider: Aaron Chand Instructions Additional Instructions / Restrictions: wound VAC to the sacral and left ischial wounds at 150mmHg low continuous suction. change dressing 3 times a week. please cleanse wounds with soap and water and pat dry prior to reapplication of wound VAC. If unable to maintain good suction, please place Dakins moistened gauze dressing until wound VAC can be reapplied. Discharge Orders/Prescriptions Prescriptions: New vancomycin in dextrose 5 % 1 gram/200 mL Piggyback 1,000 mg IV Q12H 35 Days Qty: 0 RF: 0 metronidazole 500 mg Tablet 500 mg PO TIDCM 7 Days Qty: 21 RF: 0 Charan (with collagen) 7-7-1.5 gram Powder In Packet 1 packet PO BIDCM 30 Days Qty: 60 RF: 0 fluconazole [Diflucan] 200 mg tablet 400 mg PO DAILY 14 Days Qty: 28 RF: 0 Continued acyclovir 400 mg tablet 400 mg PO DAILY RF: 0 methadone 5 mg tablet 10 mg PO QHS RF: 0 oxycodone 10 mg tablet 10 mg PO TID PRN PRN (Reason: Pain) RF: 0 potassium chloride 10 mEq tablet extended release 20 meq PO BID RF: 0 gabapentin 100 mg capsule 100 mg PO BID RF: 0 baclofen 5 mg tablet 7.5 mg PO BID RF: 0 temazepam 30 MG capsule 30 mg PO QHS RF: 0 furosemide 20 mg tablet 20 mg PO BID RF: 0 gabapentin 300 mg capsule 300 mg PO QHS RF: 0 apixaban 5 MG tablet 5 mg PO BID RF: 0 omeprazole 40 mg capsule,delayed release(DR/EC) 40 mg PO DINNER RF: 0 levothyroxine [Euthyrox] 75 mcg tablet 75 mcg PO MOTUWETHFRSA RF: 0 levothyroxine [Euthyrox] 75 mcg tablet 150 mcg PO PLASCENCIA RF: 0 methenamine hippurate 1 gram tablet 1 g PO BID RF: 0 calcium carbonate [Calcium 500] 500 mg calcium (1,250 mg) Tablet 500 mg PO DAILY RF: 0 polyethylene glycol 3350 17 gram/dose Powder 17 g PO QODAY RF: 0 methadone 5 mg tablet 15 mg PO DAILY RF: 0 cholecalciferol (vitamin D3) 25 mcg (1,000 unit) Capsule 25 mcg PO DAILY RF: 0 melatonin 10 mg Tablet 20 mg PO QHS RF: 0 carvedilol [Coreg] 3.125 mg tablet 3.125 mg PO BID RF: 0 Discontinued cephalexin 500 mg capsule 500 mg PO Q6H RF: 0 Referrals / Follow Up: Aaron Chand MD [Primary Care Provider] - Disposition Disposition (needs filled in before D/C Order can be placed): Home Health Service
[2020-09-26 16:33] VITALS: BP 107/58; PULSE 81; RESP 16; TEMP 36.9; O2SAT 97
--- NOTE | 2020-09-26 21:39 | PCM.DC.SUM ---
Providers Date of Admission: 09/19/20 Date of Discharge: 09/26/20 Primary Care Physician: Dr. Aaron Chand MD Attending Physician: Dr. Orion Mullen MD Consultations 09/20/20 06:34 Consult: Onc/Wound/director digital communications Routine Comment: Reason for Consult:: VAC placement Reason For Visit: EXCISION ISCHIAL PRESSURE SORE Diagnosis Discharge Diagnosis (1) Pressure sore of left ischium, stage 4: Status: Chronic Code(s): L89.324 - Pressure ulcer of left buttock, stage 4 (2) Sacral decubitus ulcer, stage IV: Status: Chronic Code(s): L89.154 - Pressure ulcer of sacral region, stage 4 (3) Paraplegia following spinal cord injury: Status: Chronic Code(s): G82.20 - Paraplegia, unspecified (4) Malignant neoplasm of unspecified kidney, except renal pelvis: Status: Chronic Code(s): C64.9 - Malignant neoplasm of unspecified kidney, except renal pelvis (5) Metastatic renal cell carcinoma to bone: Status: Chronic Code(s): C79.51 - Secondary malignant neoplasm of bone; C64.9 - Malignant neoplasm of unspecified kidney, except renal pelvis (6) Acute postoperative anemia due to expected blood loss: Status: Resolved Code(s): D62 - Acute posthemorrhagic anemia (7) UTI (urinary tract infection) due to urinary indwelling Blount catheter: Status: Chronic Code(s): T83.511A - Infection and inflammatory reaction due to indwelling urethral catheter, initial encounter; N39.0 - Urinary tract infection, site not specified (8) Atelectasis of left lung: Status: Resolved Code(s): J98.11 - Atelectasis Plan: Will recheck another Hgb/Hct as an outpatient at the [facility]. Will recheck another Urinalysis as an outpatient at the [facility]. Will recheck another CXR as an outpatient at the [facility] Center. Medications at Discharge Home Medications temazepam 30 mg PO QHS 12/12/18 apixaban 5 mg PO BID 02/07/19 acyclovir 400 mg tablet 400 mg PO DAILY tab 08/19/19 furosemide 20 mg tablet 20 mg PO BID tab 08/19/19 methadone 5 mg tablet 10 mg PO QHS tab 08/19/19 oxycodone 10 mg tablet 10 mg PO TID PRN PRN 08/19/19 potassium chloride 10 mEq tablet,extended release 20 meq PO BID tab 08/19/19 baclofen 5 mg tablet 7.5 mg PO BID tab 11/16/19 gabapentin 100 mg capsule 100 mg PO BID 11/16/19 gabapentin 300 mg capsule 300 mg PO QHS cap 11/16/19 calcium carbonate [Calcium 500] 500 mg PO DAILY 07/11/20 cholecalciferol (vitamin D3) 25 mcg PO DAILY 07/11/20 levothyroxine [Euthyrox] 75 mcg PO MOTUWETHFRSA 07/11/20 levothyroxine [Euthyrox] 150 mcg PO PLASCENCIA 07/11/20 melatonin 20 mg PO QHS 07/11/20 methadone 15 mg PO DAILY 07/11/20 methenamine hippurate 1 g PO BID 07/11/20 omeprazole 40 mg PO DINNER 07/11/20 polyethylene glycol 3350 17 g PO QODAY 07/11/20 carvedilol [Coreg] 3.125 mg PO BID 09/13/20 vancomycin in dextrose 5 % 1,000 mg IV Q12H 35 Days #0 ml 09/21/20 [id number] [Charan (with collagen)] 1 packet PO BIDCM 30 Days #60 packet 09/26/20 fluconazole [Diflucan] 400 mg PO DAILY 14 Days #28 tab 09/26/20 metronidazole 500 mg PO TIDCM 7 Days #21 tab 09/26/20 Hospital Course Operations - (09/19/20 - 1. Excision left ischial pressure sore, Stage IV, with partial ostectomy for osteomyelitis. 2. Excision sacral pressure sore, Stage IV.) Procedures Blood transfusion, PICC line placement and Wound vac placement Summary of Care Provided Minutes Spent on Discharge: 35 Hospital Course: 55 year old female with a history of renal cancer and metastasis to the bone presented to the [facility] with a sacral pressure sore and left ischial pressure sore. was admitted on 07/11/20 and discharged on 07/13/20 for sepsis related to an infected decubitus ulcer. She has been a paraplegic for 2.5 years after her back hardware broke. Her Oncologist is Dr. Valiente and she is on Cabometyx. Wound care has been with Dee's dressing changes. She does sit in her wheelchair up to 12 hours a day while her is at work. They have someone come and help her out of bed in the morning and get her into her wheelchair. She has a new cushion on her wheelchair from the past several months. Wound culture was done on 07/24/20. The left ischial pressure sore was positive for Pseudomonas oryzihabitans and MRSE. The sacral pressure sore was positive for E.coli, Enterococcus faecalis, Methicillin resistant Staphylococcus haemolyticus. She was started Doxycycline, Cipro and Augmentin. Operative intervention was recommended. On 09/19/20, patient underwent excision left ischial pressure sore, Stage IV, with partial ostectomy for osteomyelitis and excision sacral pressure sore, Stage IV. She tolerated the procedure well. On the first postop day, the wounds were stable with no evidence of bleeding. The VAC was applied. Hgb was 7.0. No active sources of bleeding were noted. She was given PRBC with improvement. Repeat Hgb was 10. Prealbumin was 3.1. Encourage nutritional supplementation with protein to help the healing process. Patient had postop fever of 100.6. She is now afebrile. Probably respiratory. CXR showed minimal linear atelectasis in the left lung base. Urinalysis showed a UTI. She has an indwelling catheter. Urine culture shows Yeast. Diflucan po was added for the yeast. She had baseline LFT's on 09/17/20. Patient states she has had chronic urinary infections. They change the catheter every 30 days. Initially she was treated perioperatively with Vancomycin and Zosyn. When the cultures showed Staph and Strept and Anaerobes, the Zosyn was stopped. Operative cultures show Staphylococcus aureus and Streptococcus Group G and Streptococcus mitis/oralis and Anaerobic cocci and Bacteroides pyogenes in the left ischial wound, soft tissue, and Staphylococcus aureus and Enterococcus and Streptococcus mitis/oralis and Anaerobic cocci and Bacteroides pyogenes in the left ischial wound, bone. The sacral wound showed Staphylococcus aureus and Streptococcus mitis/oralis and Anaerobic cocci and Bacteroides pyogenes. Continue Vancomycin. The Zosyn was stopped as the Staph and Strept organisms are sensitive to Vancomycin. Flagyl po was added for the Anaerobes. Pathology was positive for acute and chronic osteomyelitis. She remained afebrile throughout the rest of her stay. Home Health was arranged for the patient. However, they cannot start on the patient until . The antibiotics include Vancomycin IV, Flagyl PO, and Diflucan PO. Will tentatively discharge her on 09/28/20. Followup at Wound Center in 1-2 weeks. Weight / BMI Weight Weight: 142 lb 3.17 oz Body Mass Index (BMI) 22.9 ABG / Lab / Microbiology Data Attestation: I reviewed the patient's lab results. Result Diagrams: 09/23/20 01:28 09/26/20 09:34 Laboratory: Laboratory Results - last 24 hr 09/25/20 21:23: Vancomycin Trough 22.6 H 09/26/20 09:34: Random Vancomycin 14.3 09/26/20 09:34: Creatinine 0.47 L, Estim Creat Clear Calc 123.63, Est GFR (MDRD) Af Amer 174, Est GFR (MDRD) Non-Af 144 Microbiology: Microbiology 09/19/20 Unknown Tissue - Sacral Gram Stain - Final 09/19/20 Unknown Tissue - Sacral Wound Culture - Final Staphylococcus aureus Streptococcus mitis/ oralis 09/19/20 Unknown Tissue - Sacral Anaerobic Culture - Final Anaerobic cocci Bacteroides pyogenes 09/19/20 Unknown Bone - Ischial Bone Gram Stain - Final 09/19/20 Unknown Bone - Ischial Bone Wound Culture - Final Staphylococcus aureus Enterococcus faecalis Streptococcus mitis/ oralis 09/19/20 Unknown Bone - Ischial Bone Anaerobic Culture - Final Anaerobic cocci Bacteroides pyogenes 09/19/20 Unknown Tissue - Ischial Pressure Sore Gram Stain - Final 09/19/20 Unknown Tissue - Ischial Pressure Sore Wound Culture - Final Staphylococcus aureus Streptococcus group G Streptococcus mitis/ oralis 09/19/20 Unknown Tissue - Ischial Pressure Sore Anaerobic Culture - Final Anaerobic cocci Bacteroides pyogenes 09/20/20 13:00 Urine Catheter - Blount Urine Culture - Final Yeast, not Jessica albicans 09/17/20 14:15 Nasal Secretion SARS-CoV-2 Antigen (Rapid) - Final D/C Instructions Discharge Diet: No restrictions (Increase protein intake) and - May resume sexual activity in: No Restrictions Call your doctor if your incision/area has: Continuous Slow Oozing, Sudden Increased Bleeding, Increased Pain/ Swelling, Increased Redness, Foul Smelling Discharge and Swelling at the incision site Call your doctor if you observe: Fever of 101 or Higher, Inability to have a bowel movement, Chest pain, Calf discomfort and Uncontrolled pain Cleanse incision/area with: Soap & Water Additional Dressing/Incision Instructions: Wound VAC dressing to be changed 3 times per week. Wash wound and kip wound with soap and water at the time of the VAC dressing change. Wound VAC to 150 mmHg. No adaptic. Please bring wound VAC sponge and canister to Wound center visits for wound VAC placement. Please Follow Up With: Desiree When: Thursday10/01/20 [facility] [phone] Meaningful Use Info Meaningful Use Diagnoses (Choose all that apply): None applicable Discharge Plan Admission Admit Date/Time: 09/20/20 12:21 Attending Provider: Orion Mullen Primary Care Provider: Aaron Chand Instructions Additional Instructions / Restrictions: wound VAC to the sacral and left ischial wounds at 150mmHg low continuous suction. change dressing 3 times a week. please cleanse wounds with soap and water and pat dry prior to reapplication of wound VAC. If unable to maintain good suction, please place Dakins moistened gauze dressing until wound VAC can be reapplied. Discharge Orders/Prescriptions Prescriptions: New vancomycin in dextrose 5 % 1 gram/200 mL Piggyback 1,000 mg IV Q12H 35 Days Qty: 0 RF: 0 metronidazole 500 mg Tablet 500 mg PO TIDCM 7 Days Qty: 21 RF: 0 Charan (with collagen) 7-7-1.5 gram Powder In Packet 1 packet PO BIDCM 30 Days Qty: 60 RF: 0 fluconazole [Diflucan] 200 mg tablet 400 mg PO DAILY 14 Days Qty: 28 RF: 0 Continued acyclovir 400 mg tablet 400 mg PO DAILY RF: 0 methadone 5 mg tablet 10 mg PO QHS RF: 0 oxycodone 10 mg tablet 10 mg PO TID PRN PRN (Reason: Pain) RF: 0 potassium chloride 10 mEq tablet extended release 20 meq PO BID RF: 0 gabapentin 100 mg capsule 100 mg PO BID RF: 0 baclofen 5 mg tablet 7.5 mg PO BID RF: 0 temazepam 30 MG capsule 30 mg PO QHS RF: 0 furosemide 20 mg tablet 20 mg PO BID RF: 0 gabapentin 300 mg capsule 300 mg PO QHS RF: 0 apixaban 5 MG tablet 5 mg PO BID RF: 0 omeprazole 40 mg capsule,delayed release(DR/EC) 40 mg PO DINNER RF: 0 levothyroxine [Euthyrox] 75 mcg tablet 75 mcg PO MOTUWETHFRSA RF: 0 levothyroxine [Euthyrox] 75 mcg tablet 150 mcg PO PLASCENCIA RF: 0 methenamine hippurate 1 gram tablet 1 g PO BID RF: 0 calcium carbonate [Calcium 500] 500 mg calcium (1,250 mg) Tablet 500 mg PO DAILY RF: 0 polyethylene glycol 3350 17 gram/dose Powder 17 g PO QODAY RF: 0 methadone 5 mg tablet 15 mg PO DAILY RF: 0 cholecalciferol (vitamin D3) 25 mcg (1,000 unit) Capsule 25 mcg PO DAILY RF: 0 melatonin 10 mg Tablet 20 mg PO QHS RF: 0 carvedilol [Coreg] 3.125 mg tablet 3.125 mg PO BID RF: 0 Discontinued cephalexin 500 mg capsule 500 mg PO Q6H RF: 0 Referrals / Follow Up: Aaron Chand MD [Primary Care Provider] - Disposition Disposition (needs filled in before D/C Order can be placed): Home Health Service
--- NOTE | 2020-09-27 14:51 | CASEMGMT ---
SHERRON MADRIGAL Discharge Follow-up Phone Call: LACE: 10 Strata: 3 Call Date: 09/27/20 Discharge Date: 09/26/20 Time of Call: 1450 Duration: 3 min Admitting Diagnosis: Excision Ischial Pressure Sore SHERRON MADRIGAL completed follow-up phone call after recent hospitalization. Patient states she is doing well. Patient states she was able to fill prescriptions without any issues. Patient states that IV ATBs were delivered to patient's home without any issues. HHC has been to the house. Patient has follow-up appt with wound center on Thursday. Patient had no further questions or concerns.
== END 2020-09-26 18:47 | disposition home health service (06) | DRG 580 ==
LOC: SDC 17:01 → MS3 17:01
PROVIDERS: Anesthesiology; Admitting Provider Surgery; PCP Family Medicine; Referring Provider Surgery; Visit Provider Surgery
DX: L89.154 Pressure ulcer of sacral region, stage 4 (principal); M86.18 Other acute osteomyelitis, other site; T83.511A Infection and inflammatory reaction due to indwelling urethral catheter, initial encounter; G82.20 Paraplegia, unspecified; C79.51 Secondary malignant neoplasm of bone; C64.9 Malignant neoplasm of unspecified kidney, except renal pelvis; D62 Acute posthemorrhagic anemia; B37.49 Other urogenital candidiasis; J98.11 Atelectasis; N39.0 Urinary tract infection, site not specified; M86.652 Other chronic osteomyelitis, left thigh; L89.324 Pressure ulcer of left buttock, stage 4; I25.10 Atherosclerotic heart disease of native coronary artery without angina pectoris; K21.9 Gastro-esophageal reflux disease without esophagitis; Z79.899 Other long term (current) drug therapy; R50.82 Postprocedural fever; B95.61 Methicillin susceptible Staphylococcus aureus infection as the cause of diseases classified elsewhere; B95.2 Enterococcus as the cause of diseases classified elsewhere; B95.4 Other streptococcus as the cause of diseases classified elsewhere
CPT/HCPCS: 36415; 71045; 80048; 80076; 80202; 81001; 82565; 84134; 84443; 85027; 85610; 85730; 86850; 86900; 86901; 86920; 86922; 87070; 87075; 87077; 87086; 87088; 87102; 87176; 87186; 87205; 87206; 87426; 88304; 88305; 88311; 99251; C9803; J7040; J7050; J7120; P9016; A4216; G0463; J2405

== ENCOUNTER 2020-10-01 10:00 | Outpatient (RCR) | payer MEDICARE, SELFPAY ==
[2020-08-27 17:34] VITALS: BMI 23.7
[2020-09-06 00:28] VITALS: BP 99/61; PULSE 96; RESP 16; TEMP 36.4
--- NOTE | 2020-09-11 16:54 | WC ---
Home health from [facility] called concerned that patient has had an odor from her ulcers. No other symptoms noted but nurses were concerned. Spoke to Dr Mullen this am regarding this matter who is okay with the nurse to obtain a wound culture if it is necessary but patient has been getting Dakin's gauze. Spoke to Kiet at the [facility] and she was given an order for the culture if it's needed based on odor. Patient is following up here at wound center on 09/17/20.
[2020-09-19 08:38] VITALS: BMI 22.9
[2020-10-01 10:06] VITALS: BP 92/59; PULSE 85; RESP 18; TEMP 36.9; BMI 22.9
--- NOTE | 2020-10-01 14:48 | PN.PCM_ITS ---
History of Present Illness Date of Service: 10/01/20 Chief Complaint: Sacral pressure sore, Stage IV, and left ischial pressure sore, Stage IV. History of Wound: 55 year old female with a history of renal cancer and metastasis to the bone presented to [facility] with a sacral pressure sore and left ischial pressure sore. was admitted on 07/11/20 and discharged on 07/13/20 for sepsis related to an infected decubitus ulcer. She has been a paraplegic for 2.5 years after her back hardware broke. Her Oncologist is Dr. Valiente and she is on Cabometyx. Surgery on 09/19/20 for 1. Excision left ischial pressure sore, Stage IV, with partial ostectomy for osteomyelitis. 2. Excision sacral pressure sore, Stage IV. Discharged 09/26/20. Wound care - Wound VAC at 150 mmHg to left ischial ulcer and the left sacral ulcer with adaptic over the bone. Dressing to be changed 3 times per week. Operative wound cultures: Ischial pressure sore tissue positive for Staphylococcus aureus, Streptococcus group G, Streptococcus mitis/oralis, Anaerobic cocci and Bacteroides pyogenes. Ischial bone culture Staphylococcus aureus, Enterococcus faecalis, Streptococcue mitis/oralis , Anaerobic cocci, and Bacteroides pyogenes. Sacral tissue positive Staphylococcus aureus, Streptococcus mitis/oralis, Anaerobic cocci and Bacteroides pyogenes. She is on Vancomycin IV. She had been sitting in her wheelchair up to 12 hours a day while her is at work. They have someone come and help her out of bed in the morning and get her into her wheelchair. She has a new cushion on her wheelchair from the past several months. Wound culture was done on 07/24/20. The left ischial pressure sore was positive for Pseudomonas oryzihabitans and MRSE. The sacral pressure sore was positive for E.coli, Entercoccus faecalis, Methicillin resistant Staphylococcus haemolyticus. She was started Doxycycline, Cipro and Augmentin. Today she denies fever, chills and states she has a good appetite. Encourage nutritional supplementation with protein to help the healing process. Progress of Wound: Stable. No active bleeding. Objective Data Objective Data Vital Signs: Vital Signs Temp Pulse Resp BP 98.5 F 85 18 92/59 L 10/01/20 10:06 10/01/20 10:06 10/01/20 10:06 10/01/20 10:06 Weight: 148 lb Body Mass Index (BMI) 22.9 Charges/Coding Procedures Integumentary 111xxx-113xx: [id number] Global Visit Physical Exam Const alert and oriented x3 General Appearance: cooperative HEENT normocephalic Eyes PERRL Lymph Lymphatic: no lymphedema noted Resp normal respiratory effort Cardio regular rate GI non-tender Palpation: soft Extremity normal capillary refill Skin Skin Narrative: Sacral ulcer and left ischial ulcer pink and stable. No active bleeding. Periwound is clear. Neuro CN's II-XII intact bilaterally Psych Appearance: grossly normal and well kempt Debridement Note Debridement Note Post-Debridement Measurements and Additional Note: Post-Debridement Measurements/Treatment - Nurse 1 - General Ulcer Assessment Start: 10/01/20 10:06 Freq: Status: Active Protocol: OLIVIEREXChinedu Activity Type Activity Date Activity User E-Sign Co-Sign Detail Recorded Client Recorded Date Recorded By Document 10/01/20 10:06 CLARA [id number] 10/01/20 10:28 CLARA 10/01/20 10:06 WC - Today's Visit Information Type of service Follow-up Visit (Physician/SENIOR CLINICAL RESEARCH SCIENTIST ) Arrival Mode Wheelchair Transfer Assistance Manual Transfer Assist (Other) x1 Patient Requires Transmission-Based No Precautions Height and Weight Body Mass Index (BMI) 22.9 BMI Classification Normal Vital Signs Temperature (97.8 F-99.1 F) 98.5 F Temperature Source Temporal Pulse Rate (60-100) 85 Pulse Location Monitor Respiratory Rate (12-18) 18 Respiratory rate source Observation Blood Pressure (90/60-120/80) 92/59 L Blood Pressure Mean (mm Hg) 70 Source Monitor History Since Last Visit- (Skip if this is Patient's initial visit) Have you changed medications since your No last visit? Any new allergies or adverse reactions No Signs or symptoms of abuse and/or No neglect since last visit Have you been in the hospital since your No last visit? Has dressing in place as prescribed Yes Has compression in place as prescribed N/A Has offloadiing in place as prescribed Yes Experienced any changes in pain level or No management Pain Scale: 0-10 Numeric Is Patient Pain Free? Yes - Nurse 1 - General Ulcer Measurement Start: 10/01/20 10:06 Freq: Status: Active Protocol: Activity Type Activity Date Activity User E-Sign Co-Sign Detail Recorded Client Recorded Date Recorded By Document 10/01/20 10:06 AK [id number] 10/01/20 10:28 CLARA 10/01/20 10:06 Wound Center Nurse 1 #2 Left ischium -Current Size (cm) - Length 11 -Current Size (cm) - Width 7 -Current Size (cm) - Depth 6.9 -Total Square Cm 77 -Photo Taken No -Tunneling Position (O'clock) 11 -Tunneling Distance (cm) 6.9 -Exudate Amt Medium -Exudate Type Serosanguineous -Wound Margin Distinct, Outline Attached -Granulation Amt Medium (34-66%) -Granulation Quality Red -Necrosis Amt None Present (0 %) -Necrotic Tissue Type Adherent Slough -Structure Exposed Bone -Texture (Annamaria-wound Skin Appearance) Scarring -Moisture (Annamaria-wound Skin Appearance) No Abnormality -Color (Annamaria-wound Skin Appearance) Rubor -Temperature (Annamaria-wound Skin No Abnormality Appearance) (Pt Warm) -Tenderness on Palpation (Annamaria-wound No Skin Appearance) -Ulcer Cleansing Wound Cleanser -Foul Odor after Cleansing No -Anesthetic Used 4% Lidocaine Solution #1 Sacrum -Current Size (cm) - Length 5.5 -Current Size (cm) - Width 4.6 -Current Size (cm) - Depth 1.7 -Total Square Cm 25.30 -Photo Taken No -Exudate Type Serosanguineous -Wound Margin Distinct, Outline Attached -Granulation Amt Medium (34-66%) -Granulation Quality Red -Necrosis Amt Medium (34-66%) -Necrotic Tissue Type Adherent Slough -Structure Exposed N/A -Texture (Annamaria-wound Skin Appearance) Scarring -Moisture (Annamaria-wound Skin Appearance) No Abnormality -Color (Annamaria-wound Skin Appearance) No Abnormality -Temperature (Annamaria-wound Skin No Abnormality Appearance) (Pt Warm) -Tenderness on Palpation (Annamaria-wound No Skin Appearance) -Ulcer Cleansing Wound Cleanser -Foul Odor after Cleansing No -Anesthetic Used 4% Lidocaine Solution WC - Nurse 2 - General Ulcer CM Notes Start: 10/01/20 10:06 Freq: Status: Active Protocol: Activity Type Activity Date Activity User E-Sign Co-Sign Detail Recorded Client Recorded Date Recorded By Document 10/01/20 10:48 [id number] 10/01/20 10:51 10/01/20 10:48 Wound Center Nurse 2 #2 Left ischium -Time 10:48 -Correct Patient No -Correct Side, Site, Position No -Correct Procedure No -Procedure Performed No -Wound/Ulcer Outcome Not Healed #1 Sacrum -Time 10:49 -Correct Patient No -Correct Side, Site, Position No -Correct Procedure No -Procedure Performed No -Wound/Ulcer Outcome Not Healed Pain Scale: 0-10 Numeric Is Patient Pain Free? Yes WC - Nurse 3 - General Ulcer D/C NN Start: 10/01/20 10:06 Freq: Status: Active Protocol: Activity Type Activity Date Activity User E-Sign Co-Sign Detail Recorded Client Recorded Date Recorded By Document 10/01/20 11:16 CLAUS [id number] 10/01/20 11:31 CLAUS 10/01/20 11:16 Wound Care Nurse 3 #2 Left ischium -Ulcer Cleansing Rinsed/ Irrigated with Saline -Negative Pressure Wound Therapy Continue -Setting (mmHg) 150 -Negative Pressure is Continuous -NPWT Application Charge ($) NPWT > 50 sq cm #1 Sacrum -Ulcer Cleansing Rinsed/ Irrigated with Saline -Foul Odor after Cleansing No -Negative Pressure Wound Therapy Continue -Setting (mmHg) 150 -Negative Pressure is Continuous -NPWT Application Charge ($) NPWT > 50 sq cm WC - Visit Discharge Discharge Condition Stable Ambulatory Status Ambulatory Medication Reconcilliation completed & No provided to patient/care provider Clinical Summary of Care Provided Yes No debridement was completed: No debridement was completed today Assessment/Plan Assessment/Plan (1) Pressure sore of left ischium, stage 4: CODE(S): L89.324 - Pressure ulcer of left buttock, stage 4 (2) Sacral decubitus ulcer, stage IV: CODE(S): L89.154 - Pressure ulcer of sacral region, stage 4 (3) Osteomyelitis of pelvis: CODE(S): M86.9 - Osteomyelitis, unspecified (4) Acute postoperative anemia due to expected blood loss: CODE(S): D62 - Acute posthemorrhagic anemia (5) Paraplegia following spinal cord injury: CODE(S): G82.20 - Paraplegia, unspecified (6) Atelectasis of left lung: CODE(S): J98.11 - Atelectasis PLAN: Wound care - Wound VAC at 150 mmHg to left ischial ulcer and the left sacral ulcer with adaptic over the bone. Dressing to be changed 3 times per week. Operative wound cultures: Ischial pressure sore tissue positive for Staphylococcus aureus, Streptococcus group G, Streptococcus mitis/oralis, Anaerobic cocci and Bacteroides pyogenes. Ischial bone culture Staphylococcus aureus, Enterococcus faecalis, Streptococcus mitis/oralis , Anaerobic cocci, and Bacteroides pyogenes. Sacral tissue positive Staphylococcus aureus, Streptoc occus mitis/oralis, Anaerobic cocci and Bacteroides pyogenes. She is on Vancomycin IV. Wound culture obtained on 07/24/20 of left ischial ulcer positive for Pseudomonas oryzihabitans and MRSE. Cultures of sacral ulcer positive for E.coli, Enterococcus faecalis, Staphylococcus haemolyticus. She was started Doxycycline, Cipro and Augmentin. Encouraged patient not to sit in her wheelchair for 12 hours. If she is in her wheelchair, then she must shift her weight every 20 minutes so she is not sitting in the same place all the time. She has an incision on her left anterior shoulder/chest and an incision on medial, anterior chest between her breasts that she had biopsied several weeks ago at Dr. Sorensen's office. She was supposed to have the sutures removed last week but she had surgery instead. She spoke with Dr. Sorensen's office and asked if she could have the sutures removed at the wound center to save her a trip traveling in her wheelchair. She was told that was fine. The two chest incisions sutures were removed without difficulty. The incision is dry and intact and healing well. Follow up 2 weeks.
== END 2020-10-06 23:59 ==
LOC: WC 10:00
PROVIDERS: PCP Family Medicine; Referring Provider Nurse Practitioner Family; Visit Provider Nurse Practitioner Family
DX: L89.324 Pressure ulcer of left buttock, stage 4 (principal); L89.154 Pressure ulcer of sacral region, stage 4; M86.18 Other acute osteomyelitis, other site; G82.20 Paraplegia, unspecified; T85.898A Other specified complication of other internal prosthetic devices, implants and grafts, initial encounter; A49.01 Methicillin susceptible Staphylococcus aureus infection, unspecified site; B95.4 Other streptococcus as the cause of diseases classified elsewhere; B96.89 Other specified bacterial agents as the cause of diseases classified elsewhere; B95.2 Enterococcus as the cause of diseases classified elsewhere; Z79.2 Long term (current) use of antibiotics; Y75.8 Miscellaneous neurological devices associated with adverse incidents, not elsewhere classified
CPT/HCPCS: 97606; 99213; G0463

== ENCOUNTER 2020-11-05 10:00 | Outpatient (RCR) | payer MEDICARE, SELFPAY ==
[2020-10-07 00:30] VITALS: BP 92/59; PULSE 85; RESP 18; TEMP 36.9
[2020-10-15 10:31] VITALS: BP 90/62; PULSE 82; RESP 18; TEMP 37.4; BMI 22.9
--- NOTE | 2020-10-15 12:24 | PN.PCM_ITS ---
History of Present Illness Date of Service: 10/15/20 Chief Complaint: Sacral pressure sore, Stage IV, and left ischial pressure sore, Stage IV. History of Wound: 55 year old female with a history of renal cancer and metastasis to the bone presented to the Wound Center with a sacral pressure sore and left ischial pressure sore. was admitted on 07/11/20 and discharged on 07/13/20 for sepsis related to an infected decubitus ulcer. She has been a paraplegic for 2.5 years after her back hardware broke. Her Oncologist is Dr. Valiente and she is on Cabometyx. Surgery on 09/19/20 for 1. Excision left ischial pressure sore, Stage IV, with partial ostectomy for osteomyelitis. 2. Excision sacral pressure sore, Stage IV. Discharged 09/26/20. Wound care - Wound VAC at 150 mmHg to left ischial ulcer and the left sacral ulcer with adaptic over the bone. Dressing to be changed 3 times per week. Operative wound cultures: Ischial pressure sore tissue positive for Staphylococcus aureus, Streptococcus group G, Streptococcus mitis/oralis, Anaerobic cocci and Bacteroides pyogenes. Ischial bone culture Staphylococcus aureus, Enterococcus faecalis, Streptococcue mitis/oralis , Anaerobic cocci, and Bacteroides pyogenes. Sacral tissue positive Staphylococcus aureus, Streptococcus mitis/oralis, Anaerobic cocci and Bacteroides pyogenes. Vancomycin IV had to be stopped due elevated liver enzymes. The other IV antibiotics that would be sensitive would cost the patient too much per week and patient doesn't want placed in a facility for IV antibiotics. She decided to start Augmentin po, which will not have as good bone coverage as an IV antibiotics would have. She had been sitting in her wheelchair up to 12 hours a day while her is at work. They have someone come and help her out of bed in the morning and get her into her wheelchair. She has a new cushion on her wheelchair from the past several months. Wound culture was done on 07/24/20. The left ischial pressure sore was positive for Pseudomonas oryzihabitans and MRSE. The sacral pressure sore was positive for E.coli, Entercoccus faecalis, Methicillin resistant Staphylococcus haemolyticus. She was started Doxycycline, Cipro and Augmentin. Today she denies fever, chills and states she has a good appetite. Encourage nutritional supplementation with protein to help the healing process. Progress of Wound: Stable Objective Data Objective Data Vital Signs: Vital Signs Temp Pulse Resp BP 99.3 F H 82 18 90/62 10/15/20 10:31 10/15/20 10:31 10/15/20 10:31 10/15/20 10:31 Weight: 148 lb Body Mass Index (BMI) 22.9 Charges/Coding Procedures Integumentary 111xxx-113xx: 69995 Global Visit Physical Exam Const alert and oriented x3 General Appearance: cooperative HEENT normocephalic Head and Scalp: atraumatic Eyes PERRL Lymph Lymphatic: no lymphedema noted Resp normal respiratory effort Cardio regular rate Extremity normal capillary refill General Extremity: Negative for edema Skin Wound Narrative: Sacral and left ischial ulcers are stable. Left ischial ulcer has bone exposure. Both wound beds are beefy pink. Neuro CN's II-XII intact bilaterally Psych Appearance: grossly normal Debridement Note Debridement Note Post-Debridement Measurements and Additional Note: Post-Debridement Measurements/Treatment - Nurse 1 - General Ulcer Assessment Start: 10/15/20 10:31 Freq: Status: Active Protocol: WC.LOWEXT Activity Type Activity Date Activity User E-Sign Co-Sign Detail Recorded Client Recorded Date Recorded By Document 10/15/20 10:31 MILAN [id number] 10/15/20 10:46 DL 10/15/20 10:31 - Today's Visit Information Type of service Follow-up Visit (Physician/ROUTING EQUIPMENT TENDER ) Arrival Mode Crutches Transfer Assistance Manual Transfer Assist (Other) x1 Patient Identification Verified (Name & Yes ) Patient Requires Transmission-Based No Precautions Height and Weight Body Mass Index (BMI) 22.9 BMI Classification Normal Vital Signs Temperature (97.8 F-99.1 F) 99.3 F H Temperature Source Temporal Pulse Rate (60-100) 82 Pulse Location Monitor Respiratory Rate (12-18) 18 Respiratory rate source Observation Blood Pressure (90/60-120/80) 90/62 Blood Pressure Mean (mm Hg) 71 Source Monitor History Since Last Visit- (Skip if this is Patient's initial visit) Have you changed medications since your No last visit? Any new allergies or adverse reactions No Had a fall/change in ADL's that may No increase risk of falls Signs or symptoms of abuse and/or No neglect since last visit Have you been in the hospital since your No last visit? Has dressing in place as prescribed Yes Has compression in place as prescribed N/A Has offloadiing in place as prescribed Yes Experienced any changes in pain level or No management Pain Scale: 0-10 Numeric Is Patient Pain Free? Yes BRITTA - Nurse 1 - General Ulcer Measurement Start: 10/15/20 10:31 Freq: Status: Active Protocol: Activity Type Activity Date Activity User E-Sign Co-Sign Detail Recorded Client Recorded Date Recorded By Document 10/15/20 10:31 DL [id number] 10/15/20 10:46 DL 10/15/20 10:31 Wound Center Nurse 1 #3 left ischium -Current Size (cm) - Length 10.2 -Current Size (cm) - Width 4.5 -Current Size (cm) - Depth 6 -Total Square Cm 45.90 -Photo Taken No -Exudate Amt Medium -Wound Margin Distinct, Outline Attached -Granulation Amt Medium (34-66%) -Granulation Quality Red -Necrosis Amt Medium (34-66%) -Necrotic Tissue Type Adherent Slough -Structure Exposed Bone -Texture (Annamaria-wound Skin Appearance) Scarring -Moisture (Annamaria-wound Skin Appearance) No Abnormality -Color (Annamaria-wound Skin Appearance) Assessed -Temperature (Annamaria-wound Skin No Abnormality Appearance) (Pt Warm) -Tenderness on Palpation (Annamaria-wound No Skin Appearance) -Ulcer Cleansing Wound Cleanser -Foul Odor after Cleansing No -Anesthetic Used 4% Lidocaine Solution #4 sacrum -Current Size (cm) - Length 6.8 -Current Size (cm) - Width 5 -Current Size (cm) - Depth 1.5 -Total Square Cm 34.0 -Photo Taken No -Exudate Amt Medium -Exudate Type Serosanguineous -Wound Margin Distinct, Outline Attached -Granulation Amt Medium (34-66%) -Necrosis Amt Medium (34-66%) -Necrotic Tissue Type Adherent Slough -Structure Exposed N/A -Texture (Annamaria-wound Skin Appearance) Scarring -Moisture (Annamaria-wound Skin Appearance) No Abnormality -Color (Annamaria-wound Skin Appearance) Assessed -Temperature (Annamaria-wound Skin No Abnormality Appearance) (Pt Warm) -Tenderness on Palpation (Annamaria-wound No Skin Appearance) -Ulcer Cleansing Wound Cleanser -Anesthetic Used 4% Lidocaine Solution, Cetacaine WC - Nurse 2 - General Ulcer CM Notes Start: 10/15/20 10:31 Freq: Status: Active Protocol: Activity Type Activity Date Activity User E-Sign Co-Sign Detail Recorded Client Recorded Date Recorded By Document 10/15/20 11:11 [email or web address] [id number] 10/15/20 11:16 ESTRELLA 10/15/20 11:11 Wound Center Nurse 2 #3 left ischium -Time 11:12 -Correct Patient Yes -Correct Side, Site, Position Yes -Correct Procedure Yes -Procedure Performed Yes -Type of Procedure Debridement -Clinical Debridement Muscle / Fascia -Tissue Removed Muscle -Post Debridement (cm) - Length 11 -Post Debridement (cm) - Width 5.7 -Post Debridement (cm) - Depth 7 -Total Square (Post) (cm) 62.7 -Area of Debridement (cm) - Length 11 -Area of Debridement (cm) - Width 5.7 -Total Square (Area) (cm) 62.7 -Tunneling No -Undermining/Tunneling No -Circular Undermining No -Wound/Ulcer Outcome Not Healed -Ulcer Cleansing Rinsed/ Irrigated with Saline -Foul Odor after Cleansing No -Bioengineered Tissue No -Bleeding Controlled with Pressure -Offloading No -Treatment Response Procedure Tolerated Well -Debridement - Muscle / Fascia, 1st Yes 20sq cm -Debridement, Muscle/Fascia, ea addt'l 4 20sq cm or part thereof #4 sacrum -Time 11:12 -Correct Patient Yes -Correct Side, Site, Position Yes -Correct Procedure Yes -Procedure Performed Yes -Type of Procedure Incision & Drainage -Clinical Debridement Muscle / Fascia -Tissue Removed Muscle,Fascia -Post Debridement (cm) - Length 6.5 -Post Debridement (cm) - Width 5.5 -Post Debridement (cm) - Depth 1.8 -Total Square (Post) (cm) 35.75 -Area of Debridement (cm) - Length 6.5 -Area of Debridement (cm) - Width 5.5 -Total Square (Area) (cm) 35.75 -Tunneling No -Undermining/Tunneling No -Circular Undermining No -Wound/Ulcer Outcome Not Healed -Ulcer Cleansing Rinsed/ Irrigated with Saline -Foul Odor after Cleansing No -Bioengineered Tissue No -Bleeding Controlled with Pressure -Offloading No -Treatment Response Procedure Tolerated Well -Debridement - Muscle / Fascia, 1st No 20sq cm Pain Scale: 0-10 Numeric Is Patient Pain Free? Yes WC - Nurse 3 - General Ulcer D/C NN Start: 10/15/20 10:31 Freq: Status: Active Protocol: Activity Type Activity Date Activity User E-Sign Co-Sign Detail Recorded Client Recorded Date Recorded By Document 10/15/20 11:33 CLAUS [id number] 10/15/20 11:34 CALUS 10/15/20 11:33 Wound Care Nurse 3 #3 left ischium -Ulcer Cleansing Rinsed/ Irrigated with Saline -Negative Pressure Wound Therapy Continue -Setting (mmHg) 150 -NPWT Application Charge ($) NPWT </= 50 sq cm #4 sacrum -Ulcer Cleansing Rinsed/ Irrigated with Saline -Negative Pressure Wound Therapy Continue -Setting (mmHg) 150 -Negative Pressure is Continuous -NPWT Application Charge ($) NPWT </= 50 sq cm Pain Scale: 0-10 Numeric Is Patient Pain Free? Yes WC - Visit Discharge Discharge Condition Stable Ambulatory Status Wheelchair Transportation Private Auto Accompanied by Additional Wound Wound debrided: Ischial ulcer Laterality: Left Type of Debridement: Excisional debridement Anesthesia Used: 5% Lidocaine Gel Depth: Down to and including healthy tissue, in the subcutaneous layer, to muscle and to bone Percentage of wound debrided: 100 Instrument Used: 7mm curette Tissue Removed: Subcutaneous tissue and slough into the muscle, with bone exposure Severity: Fat Layer Exposed Amount of bleeding with debridement: Mild Bleeding Controlled with: Pressure Patient tolerated procedure: Patient tolerated procedure well Assessment/Plan Assessment/Plan (1) Pressure sore of left ischium, stage 4: CODE(S): L89.324 - Pressure ulcer of left buttock, stage 4 (2) Sacral decubitus ulcer, stage IV: CODE(S): L89.154 - Pressure ulcer of sacral region, stage 4 (3) Osteomyelitis of pelvis: CODE(S): M86.9 - Osteomyelitis, unspecified (4) Acute postoperative anemia due to expected blood loss: CODE(S): D62 - Acute posthemorrhagic anemia (5) Paraplegia following spinal cord injury: CODE(S): G82.20 - Paraplegia, unspecified PLAN: Wound care - Wound VAC at 150 mmHg to left ischial ulcer and the left sacral ulcer with adaptic over the bone. Dressing to be changed 3 times per week. Operative wound cultures: Ischial pressure sore tissue positive for Staphylococcus aureus, Streptococcus group G, Streptococcus mitis/oralis, Anaerobic cocci and Bacteroides pyogenes. Ischial bone culture Staphylococcus aureus, Enterococcus faecalis, Streptococcus mitis/oralis , Anaerobic cocci, and Bacteroides pyogenes. Sacral tissue positive Staphylococcus aureus, Streptococcus mitis/oralis, Anaerobic cocci and Bacteroides pyogenes. Vancomycin IV had to be stopped due elevated liver enzymes. The other IV antibiotics that would be sensitive would cost the patient too much per week and patient doesn't want placed in a facility for IV antibiotics. She decided to start Augmentin po, which will not have as good bone coverage as an IV antibiotics would have. Wound culture obtained on 07/24/20 of left ischial ulcer positive for Pseudomonas oryzihabitans and MRSE. Cultures of sacral ulcer positive for E.coli, Enterococcus faecalis, Staphylococcus haemolyticus. She was started Doxycycline, Cipro and Augmentin. Encouraged patient not to sit in her wheelchair for 12 hours. If she is in her wheelchair, then she must shift her weight every 20 minutes so she is not sitting in the same place all the time. Follow up 2 weeks.
--- NOTE | 2020-11-05 12:42 | PN.PCM_ITS ---
History of Present Illness Date of Service: 11/05/20 Chief Complaint: Sacral pressure sore, Stage IV, and left ischial pressure sore, Stage IV. History of Wound: 55 year old female with a history of renal cancer and metastasis to the bone [facility] with a sacral pressure sore and left ischial pressure sore. was admitted on 07/11/20 and discharged on 07/13/20 for sepsis related to an infected decubitus ulcer. She has been a paraplegic for 2.5 years after her back hardware broke. Her Oncologist is Dr. Valiente and she is on Cabometyx. Surgery on 09/19/20 for 1. Excision left ischial pressure sore, Stage IV, with partial ostectomy for osteomyelitis. 2. Excision sacral pressure sore, Stage IV. Discharged 09/26/20. Wound care - Wound VAC at 150 mmHg to left ischial ulcer and the left sacral ulcer with adaptic over the bone. Dressing to be changed 3 times per week. Operative wound cultures: Ischial pressure sore tissue positive for Staphylococcus aureus, Streptococcus group G, Streptococcus mitis/oralis, Anaerobic cocci and Bacteroides pyogenes. Ischial bone culture Staphylococcus aureus, Enterococcus faecalis, Streptococcue mitis/oralis , Anaerobic cocci, and Bacteroides pyogenes. Sacral tissue positive Staphylococcus aureus, Streptococcus mitis/oralis, Anaerobic cocci and Bacteroides pyogenes. Vancomycin IV had to be stopped due elevated liver enzymes. The other IV antibiotics that would be sensitive would cost the patient too much per week and patient doesn't want placed in a facility for IV antibiotics. She decided to start Augmentin po, which will not have as good bone coverage as an IV antibiotics would have. She had been sitting in her wheelchair up to 12 hours a day while her is at work. They have someone come and help her out of bed in the morning and get her into her wheelchair. She has a new cushion on her wheelchair from the past several months. Wound culture was done on 07/24/20. The left ischial pressure sore was positive for Pseudomonas oryzihabitans and MRSE. The sacral pressure sore was positive for E.coli, Entercoccus faecalis, Methicillin resistant Staphylococcus haemolyticus. She was started Doxycycline, Cipro and Augmentin. Today she denies fever, chills and states she has a good appetite. Encourage nutritional supplementation with protein to help the healing process. Progress of Wound: Improved. Objective Data Objective Data Vital Signs: Vital Signs Temp Pulse Resp BP 99.3 F H 82 18 90/62 10/15/20 10:31 10/15/20 10:31 10/15/20 10:31 10/15/20 10:31 Weight: 148 lb Body Mass Index (BMI) 22.9 Charges/Coding Procedures Integumentary [id number]: [id number] Global Visit Physical Exam Const alert and oriented x3 General Appearance: cooperative HEENT normocephalic Head and Scalp: atraumatic Eyes PERRL Lymph Lymphatic: no lymphedema noted Resp normal respiratory effort Cardio regular rate GI non-tender Palpation: soft Extremity normal capillary refill General Extremity: Negative for edema Skin Wound Narrative: Left ischial ulcer and sacral ulcers are pink, with bone exposure. Neuro CN's II-XII intact bilaterally Psych Appearance: grossly normal and well kempt Thought Process: normal thought process Debridement Note Debridement Note Post-Debridement Measurements and Additional Note: Post-Debridement Measure ments/Treatment - Nurse 1 - General Ulcer Assessment Start: 10/15/20 10:31 Freq: Status: Active Protocol: BRITTA.NEIDA Activity Type Activity Date Activity User E-Sign Co-Sign Detail Recorded Client Recorded Date Recorded By Document 10/15/20 10:31 MILAN [id number] 10/15/20 10:46 DL 10/15/20 10:31 - Today's Visit Information Type of service Follow-up Visit (Physician/TICKET DISPATCHER ) Arrival Mode Crutches Transfer Assistance Manual Transfer Assist (Other) x1 Patient Identification Verified (Name & Yes ) Patient Requires Transmission-Based No Precautions Height and Weight Body Mass Index (BMI) 22.9 BMI Classification Normal Vital Signs Temperature (97.8 F-99.1 F) 99.3 F H Temperature Source Temporal Pulse Rate (60-100) 82 Pulse Location Monitor Respiratory Rate (12-18) 18 Respiratory rate source Observation Blood Pressure (90/60-120/80) 90/62 Blood Pressure Mean (mm Hg) 71 Source Monitor History Since Last Visit- (Skip if this is Patient's initial visit) Have you changed medications since your No last visit? Any new allergies or adverse reactions No Had a fall/change in ADL's that may No increase risk of falls Signs or symptoms of abuse and/or No neglect since last visit Have you been in the hospital since your No last visit? Has dressing in place as prescribed Yes Has compression in place as prescribed N/A Has offloadiing in place as prescribed Yes Experienced any changes in pain level or No management Pain Scale: 0-10 Numeric Is Patient Pain Free? Yes WC - Nurse 1 - General Ulcer Measurement Start: 10/15/20 10:31 Freq: Status: Active Protocol: Activity Type Activity Date Activity User E-Sign Co-Sign Detail Recorded Client Recorded Date Recorded By Document 10/15/20 10:31 DL [id number] 10/15/20 10:46 DL 10/15/20 10:31 Wound Center Nurse 1 #3 left ischium -Current Size (cm) - Length 10.2 -Current Size (cm) - Width 4.5 -Current Size (cm) - Depth 6 -Total Square Cm 45.90 -Photo Taken No -Exudate Amt Medium -Wound Margin Distinct, Outline Attached -Granulation Amt Medium (34-66%) -Granulation Quality Red -Necrosis Amt Medium (34-66%) -Necrotic Tissue Type Adherent Slough -Structure Exposed Bone -Texture (Annamaria-wound Skin Appearance) Scarring -Moisture (Annamaria-wound Skin Appearance) No Abnormality -Color (Annamaria-wound Skin Appearance) Assessed -Temperature (Annamaria-wound Skin No Abnormality Appearance) (Pt Warm) -Tenderness on Palpation (Annamaria-wound No Skin Appearance) -Ulcer Cleansing Wound Cleanser -Foul Odor after Cleansing No -Anesthetic Used 4% Lidocaine Solution #4 sacrum -Current Size (cm) - Length 6.8 -Current Size (cm) - Width 5 -Current Size (cm) - Depth 1.5 -Total Square Cm 34.0 -Photo Taken No -Exudate Amt Medium -Exudate Type Serosanguineous -Wound Margin Distinct, Outline Attached -Granulation Amt Medium (34-66%) -Necrosis Amt Medium (34-66%) -Necrotic Tissue Type Adherent Slough -Structure Exposed N/A -Texture (Annamaria-wound Skin Appearance) Scarring -Moisture (Annamaria-wound Skin Appearance) No Abnormality -Color (Annamaria-wound Skin Appearance) Assessed -Temperature (Annamaria-wound Skin No Abnormality Appearance) (Pt Warm) -Tenderness on Palpation (Annamaria-wound No Skin Appearance) -Ulcer Cleansing Wound Cleanser -Anesthetic Used 4% Lidocaine Solution, Cetacaine WC - Nurse 2 - General Ulcer CM Notes Start: 10/15/20 10:31 Freq: Status: Active Protocol: Activity Type Activity Date Activity User E-Sign Co-Sign Detail Recorded Client Recorded Date Recorded By Document 10/15/20 11:11 [id number] 10/15/20 11:16 Document 11/05/20 10:39 [id number] 11/05/20 10:46 10/15/20 11/05/20 11:11 10:39 Wound Center Nurse 2 #3 left ischium -Time 11:12 10:40 -Correct Patient Yes Yes -Correct Side, Site, Position Yes Yes -Correct Procedure Yes Yes -Procedure Performed Yes Yes -Type of Procedure Debridement Debridement -Clinical Debridement Muscle / Fascia Muscle / Fascia -Tissue Removed Muscle Muscle -Post Debridement (cm) - Length 11 8.5 -Post Debridement (cm) - Width 5.7 5.5 -Post Debridement (cm) - Depth 7 6.5 -Total Square (Post) (cm) 62.7 46.75 -Area of Debridement (cm) - Length 11 8.5 -Area of Debridement (cm) - Width 5.7 5.5 -Total Square (Area) (cm) 62.7 46.75 -Tunneling No No -Undermining/Tunneling No No -Circular Undermining No No -Wound/Ulcer Outcome Not Healed Not Healed -Ulcer Cleansing Rinsed/ Rinsed/ Irrigated with Irrigated with Saline Saline -Foul Odor after Cleansing No No -Bioengineered Tissue No No -Bleeding Controlled with Pressure Pressure -Offloading No No -Treatment Response Procedure Procedure Tolerated Well Tolerated Well -Debridement - Muscle / Fascia, 1st Yes Yes 20sq cm -Debridement, Muscle/Fascia, ea addt'l 4 4 20sq cm or part thereof #4 sacrum -Time 11:12 10:40 -Correct Patient Yes Yes -Correct Side, Site, Position Yes Yes -Correct Procedure Yes Yes -Procedure Performed Yes Yes -Type of Procedure Incision & Debridement Drainage -Clinical Debridement Muscle / Fascia Muscle / Fascia -Tissue Removed Muscle,Fascia Muscle -Post Debridement (cm) - Length 6.5 6.8 -Post Debridement (cm) - Width 5.5 5.4 -Post Debridement (cm) - Depth 1.8 1.2 -Total Square (Post) (cm) 35.75 36.72 -Area of Debridement (cm) - Length 6.5 6.8 -Area of Debridement (cm) - Width 5.5 5.4 -Total Square (Area) (cm) 35.75 36.72 -Tunneling No No -Undermining/Tunneling No No -Circular Undermining No No -Wound/Ulcer Outcome Not Healed Not Healed -Ulcer Cleansing Rinsed/ Rinsed/ Irrigated with Irrigated with Saline Saline -Foul Odor after Cleansing No No -Bioengineered Tissue No No -Bleeding Controlled with Pressure Silver Nitrate -Offloading No No -Treatment Response Procedure Procedure Tolerated Well Tolerated Well -Debridement - Muscle / Fascia, 1st No No 20sq cm -Debridement, Muscle/Fascia, ea addt'l 1 20sq cm or part thereof Pain Scale: 0-10 Numeric Is Patient Pain Free? Yes Yes - Nurse 3 - General Ulcer D/C NN Start: 10/15/20 10:31 Freq: Status: Active Protocol: Activity Type Activity Date Activity User E-Sign Co-Sign Detail Recorded Client Recorded Date Recorded By Document 10/15/20 11:33 KR [id number] 10/15/20 11:34 KR Edit Result 10/15/20 11:33 KR (1) [id number] 10/18/20 11:08 PL Edit Result 10/15/20 11:33 KR (2) [id number] 10/18/20 11:10 PL (1) #3 left ischium - NPWT Application Charge ($) NPWT </= 50 sq cm => NPWT > 50 sq cm (2) #4 sacrum - Negative Pressure Wound Therapy Continue => - NPWT Application Charge ($) NPWT </= 50 sq cm => 10/15/20 11:33 Wound Care Nurse 3 #3 left ischium -Ulcer Cleansing Rinsed/ Irrigated with Saline -Negative Pressure Wound Therapy Continue -Setting (mmHg) 150 -NPWT Application Charge ($) NPWT > 50 sq cm #4 sacrum -Ulcer Cleansing Rinsed/ Irrigated with Saline -Setting (mmHg) 150 -Negative Pressure is Continuous Pain Scale: 0-10 Numeric Is Patient Pain Free? Yes WC - Visit Discharge Discharge Condition Stable Ambulatory Status Wheelchair Transportation Private Auto Accompanied by Wound debrided: Ischial ulcer Laterality: Left Wound Grade/Stage: Stage IV Type of Debridement: Excisional debridement Anesthesia Used: 5% Lidocaine Gel Depth: Down to and including healthy tissue, in the subcutaneous layer, to muscle and to bone Percentage of wound debrided: 100 Instrument Used: 7mm curette Tissue Removed: Subcutaneous tissue and slough into the muscle with bone exposure Severity: Fat Layer Exposed Amount of bleeding with debridement: Mild Bleeding Controlled with: Pressure Patient tolerated procedure: Patient tolerated procedure well Additional Wound Wound debrided: Sacral ulcer Wound Grade/Stage: Stage IV Type of Debridement: Excisional debridement Anesthesia Used: 4% Lidocaine Solution and 5% Lidocaine Gel Depth: Down to and including healthy tissue, in the subcutaneous layer, to muscle and to bone Percentage of wound debrided: 100 Instrument Used: 7mm curette Tissue Removed: Subcutaneous tissue and slough into the muscle with bone exposure Severity: Fat Layer Exposed Amount of bleeding with debridement: Mild Bleeding Controlled with: Pressure Patient tolerated procedure: Patient tolerated procedure well Assessment/Plan Assessment/Plan (1) Sacral decubitus ulcer, stage IV: CODE(S): L89.154 - Pressure ulcer of sacral region, stage 4 (2) Pressure sore of left ischium, stage 4: CODE(S): L89.324 - Pressure ulcer of left buttock, stage 4 (3) Paraplegia following spinal cord injury: CODE(S): G82.20 - Paraplegia, unspecified (4) Osteomyelitis of pelvis: CODE(S): M86.9 - Osteomyelitis, unspecified (5) Acute postoperative anemia due to expected blood loss: CODE(S): D62 - Acute posthemorrhagic anemia (6) Metastatic renal cell carcinoma to bone: CODE(S): C79.51 - Secondary malignant neoplasm of bone; C64.9 - Malignant neoplasm of unspecified kidney, except renal pelvis PLAN: Wound care - Wound VAC at 150 mmHg to left ischial ulcer and the left sacral ulcer with adaptic over the bone. Dressing to be changed 3 times per week. Operative wound cultures: Ischial pressure sore tissue positive for Staphylococcus aureus, Streptococcus group G, Streptococcus mitis/oralis, Anaerobic cocci and Bacteroides pyogenes. Ischial bone culture Staphylococcus aureus, Enterococcus faecalis, Streptococcus mitis/oralis , Anaerobic cocci, and Bacteroides pyogenes. Sacral tissue positive Staphylococcus aureus, Streptococcus mitis/oralis, Anaerobic cocci and Bacteroides pyogenes. Vancomycin IV had to be stopped due elevated liver enzymes. The other IV antibiotics that would be sensitive would cost the patient too much per week and patient doesn't want placed in a facility for IV antibiotics. She decided to start Augmentin po, which will not have as good bone coverage as an IV antibiotics would have. Wound culture obtained on 07/24/20 of left ischial ulcer positive for Pseudomonas oryzihabitans and MRSE. Cultures of sacral ulcer positive for E.coli, Enterococcus faecalis, Staphylococcus haemolyticus. She was started Doxycycline, Cipro and Augmentin. Encouraged patient not to sit in her wheelchair for 12 hours. If she is in her wheelchair, then she must shift her weight every 20 minutes so she is not sitting in the same place all the time. Follow up 2 weeks.
[2020-11-05 13:49] VITALS: BP 85/56; PULSE 67; TEMP 36.8; BMI 22.9
== END 2020-11-06 23:59 ==
LOC: WC 10:00
PROVIDERS: PCP Family Medicine; Referring Provider Nurse Practitioner Family; Visit Provider Nurse Practitioner Family
DX: L89.154 Pressure ulcer of sacral region, stage 4 (principal); L89.324 Pressure ulcer of left buttock, stage 4; G82.20 Paraplegia, unspecified; Z85.528 Personal history of other malignant neoplasm of kidney; C79.51 Secondary malignant neoplasm of bone; D62 Acute posthemorrhagic anemia; M86.9 Osteomyelitis, unspecified
CPT/HCPCS: 11043; 11046; 97605; 97606

== ENCOUNTER 2020-11-26 10:45 | Outpatient (RCR) | payer MEDICARE, SELFPAY ==
[2020-11-07 00:34] VITALS: BP 85/56; PULSE 67; RESP 18; TEMP 36.8; BMI 22.9
[2020-11-19 10:27] VITALS: BP 95/89; PULSE 86; RESP 20; TEMP 36.8; BMI 22.9
--- NOTE | 2020-11-19 12:36 | PCM.WC.PN ---
History of Present Illness Date of Service: 11/19/20 Chief Complaint: Sacral pressure sore, Stage IV, and left ischial pressure sore, Stage IV. History of Wound: 55 year old female with a history of renal cancer and metastasis to the bone presented to [facility] with a sacral pressure sore and left ischial pressure sore. was admitted on 07/11/20 and discharged on 07/13/20 for sepsis related to an infected decubitus ulcer. She has been a paraplegic for 2.5 years after her back hardware broke. Her Oncologist is Dr. Valiente and she is on Cabometyx. Surgery on 09/19/20 for 1. Excision left ischial pressure sore, Stage IV, with partial ostectomy for osteomyelitis. 2. Excision sacral pressure sore, Stage IV. Discharged 09/26/20. New ulcer to left posterior knee caused by her urine leg bag rubbing against her skin. Her first noticed it a few days ago as a scabbing. Wound culture obtained today, 11/19/20. Wound care - Wound VAC at 150 mmHg to left ischial ulcer and the left sacral ulcer with adaptic over the bone. Dressing to be changed 3 times per week. Left posterior knee apply Aquacel-Ag daily and covered with gauze daily. Operative wound cultures: Ischial pressure sore tissue positive for Staphylococcus aureus, Streptococcus group G, Streptococcus mitis/oralis, Anaerobic cocci and Bacteroides pyogenes. Ischial bone culture Staphylococcus aureus, Enterococcus faecalis, Streptococcue mitis/oralis , Anaerobic cocci, and Bacteroides pyogenes. Sacral tissue positive Staphylococcus aureus, Streptococcus mitis/oralis, Anaerobic cocci and Bacteroides pyogenes. Vancomycin IV had to be stopped due elevated liver enzymes. The other IV antibiotics that would be sensitive would cost the patient too much per week and patient doesn't want placed in a facility for IV antibiotics. She decided to start Augmentin po, which will not have as good bone coverage as an IV antibiotics would have. She had been sitting in her wheelchair up to 12 hours a day while her is at work. They have someone come and help her out of bed in the morning and get her into her wheelchair. She has a new cushion on her wheelchair from the past several months. Wound culture was done on 07/24/20. The left ischial pressure sore was positive for Pseudomonas oryzihabitans and MRSE. The sacral pressure sore was positive for E.coli, Entercoccus faecalis, Methicillin resistant Staphylococcus haemolyticus. She was started Doxycycline, Cipro and Augmentin. Today she denies fever, chills and states she has a good appetite. Encourage nutritional supplementation with protein to help the healing process. Progress of Wound: Left ischial and sacral ulcers are stable. New ulcer on left posterior knee. Objective Data Objective Data Vital Signs: Vital Signs Temp Pulse Resp BP 98.2 F 86 20 H 95/89 H 11/19/20 10:27 11/19/20 10:27 11/19/20 10:27 11/19/20 10:27 Weight: 148 lb Body Mass Index (BMI) 22.9 Charges/Coding Procedures Integumentary [id number]: [id number] Jerilyn subq tissue 20 sq cm/< ((left posterior knee ulcer) 79 modifier) Physical Exam Const alert and oriented x3 General Appearance: cooperative HEENT normocephalic Head and Scalp: atraumatic Lymph Lymphatic: no lymphedema noted Resp normal respiratory effort Cardio regular rate Extremity normal capillary refill Skin Wound Narrative: Left ischial and sacral ulcers are stable, pink, with bone exposure. New ulcer on left posterior knee with non-viable tissue that was removed. Debridement Note Debridement Note Wound debrided: Ischial ulcer Laterality: Left Wound Grade/Stage: Stage IV Type of Debridement: Excisional debridement Anesthesia Used: 4% Lidocaine Solution Depth: Down to and including healthy tissue, in the subcutaneous layer, to muscle and to bone Percentage of wound debrided: 100 Instrument Used: 7mm curette Tissue Removed: Subcutaneous tissue and slough into the muscle with bone exposure. Severity: Fat Layer Exposed Amount of bleeding with debridement: Mild Bleeding Controlled with: Pressure and Compression and gauze Patient tolerated procedure: Patient tolerated procedure well Post-Debridement Measurements and Additional Note: Post-Debridement Measurements/Treatment BRITTA - Nurse 1 - General Ulcer Assessment Start: 11/19/20 10:27 Freq: Status: Active Protocol: YOLA Activity Type Activity Date Activity User E-Sign Co-Sign Detail Recorded Client Recorded Date Recorded By Document 11/19/20 10:27 MILAN [id number] 11/19/20 10:40 MILAN 11/19/20 10:27 BRITTA - Today's Visit Information Type of service Follow-up Visit (Physician/CENTRAL STERILIZATION TECHNICIAN ) Arrival Mode Wheelchair Transfer Assistance Manual Transfer Assist (Other) x2 Patient Identification Verified (Name & Yes ) Patient Requires Transmission-Based No Precautions Height and Weight Body Mass Index (BMI) 22.9 BMI Classification Normal Vital Signs Temperature (97.8 F-99.1 F) 98.2 F Temperature Source Temporal Pulse Rate (60-100) 86 Pulse Location Monitor Respiratory Rate (12-18) 20 H Respiratory rate source Observation Blood Pressure (90/60-120/80) 95/89 H Blood Pressure Mean (mm Hg) 91 Source Monitor History Since Last Visit- (Skip if this is Patient's initial visit) Have you changed medications since your No last visit? Any new allergies or adverse reactions No Signs or symptoms of abuse and/or No neglect since last visit Have you been in the hospital since your No last visit? Has dressing in place as prescribed Yes Has compression in place as prescribed N/A Has offloadiing in place as prescribed Yes Experienced any changes in pain level or No management Pain Scale: 0-10 Numeric Is Patient Pain Free? Yes WC - Nurse 1 - General Ulcer Measurement Start: 11/19/20 10:27 Freq: Status: Active Protocol: Activity Type Activity Date Activity User E-Sign Co-Sign Detail Recorded Client Recorded Date Recorded By Document 11/19/20 10:27 DL [id number] 11/19/20 10:40 DL 11/19/20 10:27 Wound Center Nurse 1 #5 L Post Knee -Current Size (cm) - Length 1 -Current Size (cm) - Width 2 -Current Size (cm) - Depth 0.3 -Total Square Cm 2 -Photo Taken Yes -Classification - Thickness Full Thickness without Exposed Support Structure -Exudate Amt Small -Wound Margin Distinct, Outline Attached -Granulation Amt None Present (0 %) -Necrosis Amt Large (67-100%) -Necrotic Tissue Type Adherent Slough -Structure Exposed N/A -Texture (Annamaria-wound Skin Appearance) Scarring -Moisture (Annamaria-wound Skin Appearance) No Abnormality -Color (Annamaria-wound Skin Appearance) No Abnormality -Temperature (Annamaria-wound Skin No Abnormality Appearance) (Pt Warm) -Tenderness on Palpation (Annamaria-wound No Skin Appearance) -Ulcer Cleansing Wound Cleanser -Foul Odor after Cleansing No -Anesthetic Used 4% Lidocaine Solution #3 left ischium -Current Size (cm) - Length 8 -Current Size (cm) - Width 7 -Current Size (cm) - Depth 3.7 -Total Square Cm 56 -Photo Taken No -Undermining/Tunneling Starts (O'clock 9 ) -Undermining/Tunneling Ends (O'clock) 12 -Maximum Distance (cm) 4.5 -Exudate Amt Medium -Exudate Type Serosanguineous -Wound Margin Distinct, Outline Attached -Granulation Amt Medium (34-66%) -Granulation Quality Red -Necrosis Amt Medium (34-66%) -Necrotic Tissue Type Adherent Slough -Structure Exposed Bone -Texture (Annamaria-wound Skin Appearance) Scarring -Moisture (Annamaria-wound Skin Appearance) No Abnormality -Color (Annamaria-wound Skin Appearance) No Abnormality -Temperature (Annamaria-wound Skin No Abnormality Appearance) (Pt Warm) -Tenderness on Palpation (Annamaria-wound No Skin Appearance) -Ulcer Cleansing Wound Cleanser -Foul Odor after Cleansing No -Anesthetic Used 4% Lidocaine Solution #4 sacrum -Current Size (cm) - Length 6 -Current Size (cm) - Width 6.2 -Current Size (cm) - Depth 1.6 -Total Square Cm 37.2 -Photo Taken No -Undermining/Tunneling Starts (O'clock 10 ) -Undermining/Tunneling Ends (O'clock) 5 -Maximum Distance (cm) 1.6 -Circular Undermining No -Exudate Amt Medium -Wound Margin Distinct, Outline Attached -Granulation Amt Medium (34-66%) -Necrosis Amt Medium (34-66%) -Necrotic Tissue Type Adherent Slough -Structure Exposed N/A -Texture (Annamaria-wound Skin Appearance) Scarring -Moisture (Annamaria-wound Skin Appearance) No Abnormality -Color (Annamaria-wound Skin Appearance) No Abnormality -Temperature (Annamaria-wound Skin No Abnormality Appearance) (Pt Warm) -Tenderness on Palpation (Annamaria-wound No Skin Appearance) -Ulcer Cleansing Wound Cleanser -Foul Odor after Cleansing No -Anesthetic Used 4% Lidocaine Solution WC - Nurse 2 - General Ulcer CM Notes Start: 11/19/20 10:27 Freq: Status: Active Protocol: Activity Type Activity Date Activity User E-Sign Co-Sign Detail Recorded Client Recorded Date Recorded By Document 11/19/20 10:46 ESTRELLA [id number] 11/19/20 10:58 ESTRELLA 11/19/20 10:46 Wound Center Nurse 2 #5 L Post Knee -Time 10:46 -Correct Patient Yes -Correct Side, Site, Position Yes -Correct Procedure Yes -Procedure Performed Yes -Type of Procedure Debridement -Clinical Debridement Subcutaneous -Tissue Removed Subcutaneous -Post Debridement (cm) - Length 1.5 -Post Debridement (cm) - Width 2.3 -Post Debridement (cm) - Depth 9 -Total Square (Post) (cm) 3.45 -Area of Debridement (cm) - Length 0.5 -Area of Debridement (cm) - Width 2.3 -Total Square (Area) (cm) 1.15 -Tunneling No -Undermining/Tunneling No -Circular Undermining No -Wound/Ulcer Outcome Not Healed -Ulcer Cleansing Rinsed/ Irrigated with Saline -Foul Odor after Cleansing No -Bioengineered Tissue No -Offloading No -Treatment Response Procedure Tolerated Well -Debridement - Subq, 1st 20sq cm Yes #3 left ischium -Time 10:47 -Correct Patient Yes -Correct Side, Site, Position Yes -Correct Procedure Yes -Procedure Performed Yes -Type of Procedure Debridement -Clinical Debridement Muscle / Fascia -Tissue Removed Muscle -Post Debridement (cm) - Length 8.8 -Post Debridement (cm) - Width 6.5 -Post Debridement (cm) - Depth 6.8 -Total Square (Post) (cm) 57.20 -Area of Debridement (cm) - Length 8.8 -Area of Debridement (cm) - Width 6.5 -Total Square (Area) (cm) 57.20 -Tunneling No -Undermining/Tunneling No -Circular Undermining No -Wound/Ulcer Outcome Not Healed -Ulcer Cleansing Rinsed/ Irrigated with Saline -Foul Odor after Cleansing No -Bioengineered Tissue No -Bleeding Controlled with Pressure -Offloading No -Treatment Response Procedure Tolerated Well -Debridement - Muscle / Fascia, 1st Yes 20sq cm -Debridement, Muscle/Fascia, ea addt'l 4 20sq cm or part thereof #4 sacrum -Time 10:47 -Correct Patient Yes -Correct Side, Site, Position Yes -Correct Procedure Yes -Procedure Performed Yes -Type of Procedure Incision & Drainage -Clinical Debridement Muscle / Fascia -Tissue Removed Muscle -Post Debridement (cm) - Length 6 -Post Debridement (cm) - Width 5.4 -Post Debridement (cm) - Depth 1.4 -Total Square (Post) (cm) 32.4 -Area of Debridement (cm) - Length 6 -Area of Debridement (cm) - Width 5.4 -Total Square (Area) (cm) 32.4 -Tunneling No -Undermining/Tunneling No -Circular Undermining No -Wound/Ulcer Outcome Not Healed -Ulcer Cleansing Rinsed/ Irrigated with Saline -Foul Odor after Cleansing No -Bioengineered Tissue No -Bleeding Controlled with Pressure -Offloading No -Treatment Response Procedure Tolerated Well -Debridement - Muscle / Fascia, 1st No 20sq cm Pain Scale: 0-10 Numeric Is Patient Pain Free? Yes - Nurse 3 - General Ulcer D/C NN Start: 11/19/20 10:27 Freq: Status: Active Protocol: Activity Type Activity Date Activity User E-Sign Co-Sign Detail Recorded Client Recorded Date Recorded By Document 11/19/20 11:27 DL [id number] 11/19/20 11:32 DL 11/19/20 11:27 Wound Care Nurse 3 #5 L Post Knee -Ulcer Cleansing Wound Cleanser -Foul Odor after Cleansing No -Primary Dressing Applied Aquacel AG 4x4 -Primary Dressing Covered/Secured with Dry Gauze, Secured with Tape -Aquacel AG 4x4 1 #3 left ischium -Ulcer Cleansing Wound Cleanser -Foul Odor after Cleansing No -Other Dressing aqaucel ag -Primary Dressing Covered/Secured with Dry Gauze & Roll Gauze, Secured with Tape #4 sacrum -Ulcer Cleansing Wound Cleanser -Foul Odor after Cleansing No -Other Dressing aquacel ag -Primary Dressing Covered/Secured with Dry Gauze & Roll Gauze, Secured with Tape -Aquacel AG 4x4 1 Treatment Response Procedure Tolerated Well Pain Scale: 0-10 Numeric Is Patient Pain Free? Yes WC - Visit Discharge Discharge Condition Stable Ambulatory Status Wheelchair Transportation Private Auto Facility Type Home Health Orders Sent Yes Additional Wound Wound debrided: Sacral ulcer Wound Grade/Stage: Stage IV Type of Debridement: Excisional debridement Anesthesia Used: 4% Lidocaine Solution Depth: Down to and including healthy tissue, in the subcutaneous layer, to muscle and to bone Percentage of wound debrided: 100 Instrument Used: 7mm curette Tissue Removed: Subcutaneous tissue and slough into the muscle with bone exposure. Severity: Fat Layer Exposed Amount of bleeding with debridement: Mild Bleeding Controlled with: Pressure and Compression and gauze Patient tolerated procedure: Patient tolerated procedure well Additional Wound Wound debrided: Posterior knee ulcer Laterality: Left Wound Grade/Stage: Stage IV Type of Debridement: Excisional debridement Anesthesia Used: 4% Lidocaine Solution Depth: Down to and including healthy tissue and in the subcutaneous layer Percentage of wound debrided: 100 Instrument Used: 3mm curette Tissue Removed: Subcutaneous tissue and slough Severity: Fat Layer Exposed Amount of bleeding with debridement: Mild Bleeding Controlled with: Pressure and Compression and gauze Patient tolerated procedure: Patient tolerated procedure well Assessment/Plan Assessment/Plan (1) Sacral decubitus ulcer, stage IV: CODE(S): L89.154 - Pressure ulcer of sacral region, stage 4 (2) Pressure sore of left ischium, stage 4: CODE(S): L89.324 - Pressure ulcer of left buttock, stage 4 (3) Ulcer of left knee: CODE(S): L97.829 - Non-pressure chronic ulcer of other part of left lower leg with unspecified severity QUALIFIERS: Non-pressure ulcer stage: with fat layer exposed Qualified Code(s): L97.822 - Non-pressure chronic ulcer of other part of left lower leg with fat layer exposed (4) Osteomyelitis of pelvis: CODE(S): M86.9 - Osteomyelitis, unspecified (5) Acute postoperative anemia due to expected blood loss: CODE(S): D62 - Acute posthemorrhagic anemia (6) Paraplegia following spinal cord injury: CODE(S): G82.20 - Paraplegia, unspecified PLAN: Wound care - Wound VAC at 150 mmHg to left ischial ulcer and the left sacral ulcer with adaptic over the bone. Dressing to be changed 3 times per week. (Unable to place the wound VAC at the wound center, so will do daily Dakin's moistened gauze dressing covered with ABD or super absorbant dressing daily and prn until home health can place wound VAC. Left posterior knee ulcer will place Aquacel-Ag dressing covered with gauze daily. Operative wound cultures: Ischial pressure sore tissue positive for Staphylococcus aureus, Streptococcus group G, Streptococcus mitis/oralis, Anaerobic cocci and Bacteroides pyogenes. Ischial bone culture Staphylococcus aureus, Enterococcus faecalis, Streptococcus mitis/oralis , Anaerobic cocci, and Bacteroides pyogenes. Sacral tissue positive Staphylococcus aureus, Streptococcus mitis/oralis, Anaerobic cocci and Bacteroides pyogenes. Vancomycin IV had to be stopped due elevated liver enzymes. The other IV antibiotics that would be sensitive would cost the patient too much per week and patient doesn't want placed in a facility for IV antibiotics. She decided to start Augmentin po, which will not have as good bone coverage as an IV antibiotics would have. Wound culture of left posterior knee ulcer obtained today, 11/19/20. Depending on the result of the culture, it may necessitate treatment with antibiotics. Wound culture obtained on 07/24/20 of left ischial ulcer positive for Pseudomonas oryzihabitans and MRSE. Cultures of sacral ulcer positive for E.coli, Enterococcus faecalis, Staphylococcus haemolyticus. She was started Doxycycline, Cipro and Augmentin. Encouraged patient not to sit in her wheelchair for 12 hours. If she is in her wheelchair, then she must shift her weight every 20 minutes so she is not sitting in the same place all the time. Follow up 1 week.
[2020-11-26 10:52] VITALS: BP 90/52; PULSE 93; TEMP 36.4; BMI 22.9
--- NOTE | 2020-11-26 13:04 | PN.PCM_ITS ---
History of Present Illness Date of Service: 11/26/20 Chief Complaint: Sacral pressure sore, Stage IV, and left ischial pressure sore, Stage IV. History of Wound: 55 year old female with a history of renal cancer and metastasis to the bone [facility] with a sacral pressure sore and left ischial pressure sore. was admitted on 07/11/20 and discharged on 07/13/20 for sepsis related to an infected decubitus ulcer. She has been a paraplegic for 2.5 years after her back hardware broke. Her Oncologist is Dr. Valiente and she is on Cabometyx. Surgery on 09/19/20 for 1. Excision left ischial pressure sore, Stage IV, with partial ostectomy for osteomyelitis. 2. Excision sacral pressure sore, Stage IV. Discharged 09/26/20. New ulcer to left posterior knee caused by her urine leg bag rubbing against her skin. Her first noticed it a few days ago as a scabbing. Wound culture obtained today, 11/19/20. Wound care - Wound VAC at 150 mmHg to left ischial ulcer and the left sacral ulcer with adaptic over the bone. Dressing to be changed 3 times per week. Left posterior knee pack with Dakins moistened gauze and cover with gauze daily. Wound culture of left posterior knee 11/19/20 positive for Staphylococcus aureus and Corynebacterium striatum. She has been started on Augmentin. Operative wound cultures: Ischial pressure sore tissue positive for Staphylococcus aureus, Streptococcus group G, Streptococcus mitis/oralis, Anaerobic cocci and Bacteroides pyogenes. Ischial bone culture Staphylococcus aureus, Enterococcus faecalis, Streptococcue mitis/oralis , Anaerobic cocci, and Bacteroides pyogenes. Sacral tissue positive Staphylococcus aureus, Streptococcus mitis/oralis, Anaerobic cocci and Bacteroides pyogenes. Vancomycin IV had to be stopped due elevated liver enzymes. The other IV antibiotics that would be sensitive would cost the patient too much per week and patient doesn't want placed in a facility for IV antibiotics. She decided to start Augmentin po, which will not have as good bone coverage as an IV antibiotics would have. She had been sitting in her wheelchair up to 12 hours a day while her is at work. They have someone come and help her out of bed in the morning and get her into her wheelchair. She has a new cushion on her wheelchair from the past several months. Wound culture was done on 07/24/20. The left ischial pressure sore was positive for Pseudomonas oryzihabitans and MRSE. The sacral pressure sore was positive for E.coli, Entercoccus faecalis, Methicillin resistant Staphylococcus haemolyticus. She was started Doxycycline, Cipro and Augmentin. Today she denies fever, chills and states she has a good appetite. Encourage nutritional supplementation with protein to help the healing process. Progress of Wound: Left ischial and sacral ulcers are stable. Ulcer on left posterior knee with increased biofilm. Objective Data Objective Data Vital Signs: Vital Signs Temp Pulse Resp BP 97.5 F L 93 20 H 90/52 L 11/26/20 10:52 11/26/20 10:52 11/19/20 10:27 11/26/20 10:52 Weight: 148 lb Body Mass Index (BMI) 22.9 Lab / Micro Data Micro: Microbiology 11/19/20 Unknown Wound Abcess - Knee Gram Stain - Final 11/19/20 Unknown Wound Abcess - Knee Wound Culture - Final Staphylococcus aureus Corynebacterium striatum 11/19/20 Unknown Wound Abcess - Knee Anaerobic Culture - Final No anaerobic bacteria isolated. Charges/Coding Procedures Integumentary [id number]: [id number] Jerilyn subq tissue 20 sq cm/< (79 modifier- new ulcer in postop period) Physical Exam Const alert and oriented x3 General Appearance: cooperative HEENT normocephalic Lymph Lymphatic: no lymphedema noted Resp normal respiratory effort Cardio regular rate GI non-tender Palpation: soft Extremity normal capillary refill Skin Wound Narrative: Left ischial ulcer, sacral ulcer are stable. Left posterior ulcer with increased biofilm. Neuro CN's II-XII intact bilaterally Psych Appearance: grossly normal Debridement Note Debridement Note Wound debrided: ischial ulcer Laterality: Left Wound Grade/Stage: stage iv Type of Debridement: Excisional debridement Anesthesia Used: 4% Lidocaine Solution Depth: Down to and including healthy tissue, in the subcutaneous layer and to muscle Percentage of wound debrided: 100 Instrument Used: 7mm curette Tissue Removed: Subcutaneous tissue and slough into the muscle with bone exposure. Amount of bleeding with debridement: Mild Bleeding Controlled with: Pressure Patient tolerated procedure: Patient tolerated procedure well Post-Debridement Measurements and Additional Note: Post-Debridement Measurements/Treatment WC - Nurse 1 - General Ulcer Assessment Start: 11/19/20 10:27 Freq: Status: Active Protocol: [facility] Activity Type Activity Date Activity User E-Sign Co-Sign Detail Recorded Client Recorded Date Recorded By Document 11/19/20 10:27 DL [id number] 11/19/20 10:40 DL Document 11/26/20 10:52 BM [id number] 11/26/20 11:07 [facility] 11/19/20 11/26/20 10:27 10:52 WC - Today's Visit Information Type of service Follow-up Visit Follow-up Visit (Physician/[facility] (Physician/[facility] ) ) Arrival Mode Wheelchair Wheelchair Transfer Assistance Manual None Transfer Assist (Other) x2 Accompanied by Patient Identification Verified (Name & Yes Yes ) Patient Requires Transmission-Based No No Precautions Height and Weight Body Mass Index (BMI) 22.9 22.9 BMI Classification Normal Normal Vital Signs Temperature (97.8 F-99.1 F) 98.2 F 97.5 F L Temperature Source Temporal Temporal Pulse Rate (60-100) 86 93 Pulse Location Monitor Monitor Respiratory Rate (12-18) 20 H Respiratory rate source Observation Blood Pressure (90/60-120/80) 95/89 H 90/52 L Blood Pressure Mean (mm Hg) 91 64 Source Monitor Monitor Position Sitting Blood Pressure Location Left Arm History Since Last Visit- (Skip if this is Patient's initial visit) Have you changed medications since your No No last visit? Any new allergies or adverse reactions No No Had a fall/change in ADL's that may No increase risk of falls Signs or symptoms of abuse and/or No No neglect since last visit Have you been in the hospital since your No No last visit? Has dressing in place as prescribed Yes Yes Has compression in place as prescribed N/A N/A Has offloadiing in place as prescribed Yes N/A Experienced any changes in pain level or No No management Left Footwear Regular Shoe Right Footwear Regular Shoe Pain Scale: 0-10 Numeric Is Patient Pain Free? Yes Yes - Nurse 1 - General Ulcer Measurement Start: 11/19/20 10:27 Freq: Status: Active Protocol: Activity Type Activity Date Activity User E-Sign Co-Sign Detail Recorded Client Recorded Date Recorded By Document 11/19/20 10:27 DL [id number] 11/19/20 10:40 DL Document 11/26/20 10:52 [facility] [id number] 11/26/20 11:07 BMF 11/19/20 11/26/20 10:27 10:52 Wound Center Nurse 1 #5 L Post Knee -Combined with other wound No -Current Size (cm) - Length 1 0.8 -Current Size (cm) - Width 2 2.7 -Current Size (cm) - Depth 0.3 0.8 -Total Square Cm 2 2.16 -Photo Taken Yes No -Epithelialization None Present -Tunneling No -Undermining/Tunneling No -Circular Undermining No -Classification - Thickness Full Thickness without Exposed Support Structure -Exudate Amt Small Medium -Exudate Type Serosanguineous -Wound Margin Distinct, Distinct, Outline Outline Attached Attached -Granulation Amt None Present (0 Small (1-33%) %) -Granulation Quality Red -Slough/Fibrin Yes -Necrosis Amt Large (67-100%) Large (67-100%) -Necrotic Tissue Type Adherent Slough Adherent Slough -Structure Exposed N/A -Texture (Annamaria-wound Skin Appearance) Scarring Assessed, Scarring -Moisture (Annamaria-wound Skin Appearance) No Abnormality Assessed -Color (Annamaria-wound Skin Appearance) No Abnormality Assessed -Temperature (Annamaria-wound Skin No Abnormality No Abnormality Appearance) (Pt Warm) (Pt Warm) -Tenderness on Palpation (Annamaria-wound No No Skin Appearance) -Ulcer Cleansing Wound Cleanser Rinsed/ Irrigated with Saline -Foul Odor after Cleansing No No -Anesthetic Used 4% Lidocaine Solution #3 left ischium -Combined with other wound No -Current Size (cm) - Length 8 7 -Current Size (cm) - Width 7 8.5 -Current Size (cm) - Depth 3.7 4.4 -Total Square Cm 56 59.5 -Photo Taken No No -Epithelialization None Present -Tunneling No -Undermining/Tunneling Yes -Undermining/Tunneling Starts (O'clock 9 11 ) -Undermining/Tunneling Ends (O'clock) 12 3 -Maximum Distance (cm) 4.5 5.1 -Circular Undermining No -Exudate Amt Medium Medium -Exudate Type Serosanguineous Serosanguineous -Wound Margin Distinct, Distinct, Outline Outline Attached Attached -Granulation Amt Medium (34-66%) Large (67-100%) -Granulation Quality Red Red -Slough/Fibrin Yes -Necrosis Amt Medium (34-66%) Small (1-33%) -Necrotic Tissue Type Adherent Slough Adherent Slough -Structure Exposed Bone Bone -Texture (Annamaria-wound Skin Appearance) Scarring Assessed, Scarring -Moisture (Annamaria-wound Skin Appearance) No Abnormality Assessed -Color (Annamaria-wound Skin Appearance) No Abnormality Assessed -Temperature (Annamaria-wound Skin No Abnormality No Abnormality Appearance) (Pt Warm) (Pt Warm) -Tenderness on Palpation (Annamaria-wound No No Skin Appearance) -Ulcer Cleansing Wound Cleanser soapy water -Foul Odor after Cleansing No No -Anesthetic Used 4% Lidocaine Solution #4 sacrum -Combined with other wound No -Current Size (cm) - Length 6 7 -Current Size (cm) - Width 6.2 7 -Current Size (cm) - Depth 1.6 2 -Total Square Cm 37.2 49 -Photo Taken No No -Epithelialization None Present -Tunneling No -Undermining/Tunneling No -Undermining/Tunneling Starts (O'clock 10 ) -Undermining/Tunneling Ends (O'clock) 5 -Maximum Distance (cm) 1.6 -Circular Undermining No No -Exudate Amt Medium Medium -Exudate Type Serosanguineous -Wound Margin Distinct, Distinct, Outline Outline Attached Attached -Granulation Amt Medium (34-66%) Large (67-100%) -Granulation Quality Red -Slough/Fibrin Yes -Necrosis Amt Medium (34-66%) Small (1-33%) -Necrotic Tissue Type Adherent Slough Adherent Slough -Structure Exposed N/A -Texture (Annamaria-wound Skin Appearance) Scarring Assessed, Scarring -Moisture (Annamaria-wound Skin Appearance) No Abnormality Assessed -Color (Annamaria-wound Skin Appearance) No Abnormality Assessed -Temperature (Annamaria-wound Skin No Abnormality No Abnormality Appearance) (Pt Warm) (Pt Warm) -Tenderness on Palpation (Annamaria-wound No No Skin Appearance) -Ulcer Cleansing Wound Cleanser soapy water -Foul Odor after Cleansing No No -Anesthetic Used 4% Lidocaine Solution WC - Nurse 2 - General Ulcer CM Notes Start: 11/19/20 10:27 Freq: Status: Active Protocol: Activity Type Activity Date Activity User E-Sign Co-Sign Detail Recorded Client Recorded Date Recorded By Document 11/19/20 10:46 [id number] 11/19/20 10:58 Document 11/26/20 11:24 [id number] 11/26/20 11:35 11/19/20 11/26/20 10:46 11:24 Wound Center Nurse 2 #5 L Post Knee -Time 10:46 11:24 -Correct Patient Yes Yes -Correct Side, Site, Position Yes Yes -Correct Procedure Yes Yes -Procedure Performed Yes Yes -Type of Procedure Debridement Debridement -Clinical Debridement Subcutaneous Subcutaneous -Tissue Removed Subcutaneous Subcutaneous -Post Debridement (cm) - Length 1.5 1.8 -Post Debridement (cm) - Width 2.3 2.5 -Post Debridement (cm) - Depth 9 1.4 -Total Square (Post) (cm) 3.45 4.50 -Area of Debridement (cm) - Length 0.5 1.8 -Area of Debridement (cm) - Width 2.3 2.5 -Total Square (Area) (cm) 1.15 4.50 -Tunneling No No -Undermining/Tunneling No No -Circular Undermining No No -Wound/Ulcer Outcome Not Healed Not Healed -Ulcer Cleansing Rinsed/ Rinsed/ Irrigated with Irrigated with Saline Saline -Foul Odor after Cleansing No No -Bioengineered Tissue No No -Bleeding Controlled with Pressure -Offloading No No -Treatment Response Procedure Procedure Tolerated Well Tolerated Well -Debridement - Subq, 1st 20sq cm Yes Yes #3 left ischium -Time 10:47 11:27 -Correct Patient Yes Yes -Correct Side, Site, Position Yes Yes -Correct Procedure Yes Yes -Procedure Performed Yes Yes -Type of Procedure Debridement Debridement -Clinical Debridement Muscle / Fascia Muscle / Fascia -Tissue Removed Muscle Muscle -Post Debridement (cm) - Length 8.8 8.5 -Post Debridement (cm) - Width 6.5 7 -Post Debridement (cm) - Depth 6.8 5 -Total Square (Post) (cm) 57.20 59.5 -Area of Debridement (cm) - Length 8.8 8.5 -Area of Debridement (cm) - Width 6.5 7 -Total Square (Area) (cm) 57.20 59.5 -Tunneling No No -Undermining/Tunneling No No -Circular Undermining No No -Wound/Ulcer Outcome Not Healed Not Healed -Ulcer Cleansing Rinsed/ Rinsed/ Irrigated with Irrigated with Saline Saline -Foul Odor after Cleansing No No -Bioengineered Tissue No No -Bleeding Controlled with Pressure Pressure -Offloading No No -Treatment Response Procedure Procedure Tolerated Well Tolerated Well -Debridement - Muscle / Fascia, 1st Yes No 20sq cm -Debridement, Muscle/Fascia, ea addt'l 4 20sq cm or part thereof #4 sacrum -Time 10:47 11:28 -Correct Patient Yes Yes -Correct Side, Site, Position Yes Yes -Correct Procedure Yes Yes -Procedure Performed Yes Yes -Type of Procedure Incision & Debridement Drainage -Clinical Debridement Muscle / Fascia Muscle / Fascia -Tissue Removed Muscle Muscle -Post Debridement (cm) - Length 6 7 -Post Debridement (cm) - Width 5.4 7.5 -Post Debridement (cm) - Depth 1.4 2 -Total Square (Post) (cm) 32.4 52.5 -Area of Debridement (cm) - Length 6 7 -Area of Debridement (cm) - Width 5.4 7.5 -Total Square (Area) (cm) 32.4 52.5 -Tunneling No No -Undermining/Tunneling No No -Circular Undermining No No -Wound/Ulcer Outcome Not Healed Not Healed -Ulcer Cleansing Rinsed/ Rinsed/ Irrigated with Irrigated with Saline Saline -Foul Odor after Cleansing No No -Bioengineered Tissue No No -Bleeding Controlled with Pressure Pressure -Offloading No No -Treatment Response Procedure Procedure Tolerated Well Tolerated Well -Debridement - Muscle / Fascia, 1st No Yes 20sq cm -Debridement, Muscle/Fascia, ea addt'l 5 20sq cm or part thereof Pain Scale: 0-10 Numeric Is Patient Pain Free? Yes Yes - Nurse 3 - General Ulcer D/C NN Start: 11/19/20 10:27 Freq: Status: Active Protocol: Activity Type Activity Date Activity User E-Sign Co-Sign Detail Recorded Client Recorded Date Recorded By Document 11/19/20 11:27 DL [id number] 11/19/20 11:32 DL Document 11/26/20 11:47 DL [id number] 11/26/20 11:49 DL 11/19/20 11/26/20 11:27 11:47 Wound Care Nurse 3 #5 L Post Knee -Ulcer Cleansing Wound Cleanser Rinsed/ Irrigated with Saline -Foul Odor after Cleansing No No -Primary Dressing Applied Aquacel AG 4x4 -Other Dressing moist -Primary Dressing Covered/Secured with Dry Gauze, Dry Gauze, Secured with Secured with Tape Tape -Aquacel AG 4x4 1 #3 left ischium -Ulcer Cleansing Wound Cleanser Rinsed/ Irrigated with Saline -Foul Odor after Cleansing No No -Other Dressing aqaucel ag most -Primary Dressing Covered/Secured with Dry Gauze & Dry Gauze & Roll Gauze, Roll Gauze, Secured with Secured with Tape Tape #4 sacrum -Ulcer Cleansing Wound Cleanser Rinsed/ Irrigated with Saline -Foul Odor after Cleansing No No -Other Dressing aquacel ag moist -Primary Dressing Covered/Secured with Dry Gauze & Dry Gauze & Roll Gauze, Roll Gauze, Secured with Secured with Tape Tape -Aquacel AG 4x4 1 Treatment Response Procedure Procedure Tolerated Well Tolerated Well Pain Scale: 0-10 Numeric Is Patient Pain Free? Yes Yes WC - Visit Discharge Discharge Condition Stable Stable Ambulatory Status Wheelchair Wheelchair Transportation Private Auto Private Auto Accompanied by Facility Type Home Health Orders Sent Yes Additional Wound Wound debrided: sacral ulcer Wound Grade/Stage: stage iv Type of Debridement: Excisional debridement Depth: Down to and including healthy tissue, in the subcutaneous layer and to muscle Percentage of wound debrided: 100 Instrument Used: 7mm curette Tissue Removed: subcutaneous tissue and slough into the muscle with bone exposure Severity: Fat Layer Exposed Amount of bleeding with debridement: Mild Bleeding Controlled with: Compression and gauze Patient tolerated procedure: Patient tolerated procedure well Additional Wound Wound debrided: posterior knee ulcer Laterality: Left Wound Grade/Stage: stage iv Type of Debridement: Excisional debridement Anesthesia Used: 4% Lidocaine Solution Depth: Down to and including healthy tissue and in the subcutaneous layer Percentage of wound debrided: 100 Instrument Used: 5mm curette Tissue Removed: Large amount of slough, necrotic fat tissue and biofilm Severity: Fat Layer Exposed Amount of bleeding with debridement: Mild Bleeding Controlled with: Pressure Patient tolerated procedure: Patient tolerated procedure well Assessment/Plan Assessment/Plan (1) Pressure sore of left ischium, stage 4: CODE(S): L89.324 - Pressure ulcer of left buttock, stage 4 (2) Sacral decubitus ulcer, stage IV: CODE(S): L89.154 - Pressure ulcer of sacral region, stage 4 (3) Ulcer of left knee: CODE(S): L97.829 - Non-pressure chronic ulcer of other part of left lower leg with unspecified severity QUALIFIERS: Non-pressure ulcer stage: with fat layer exposed Qualified Code(s): L97.822 - Non-pressure chronic ulcer of other part of left lower leg with fat layer exposed (4) Osteomyelitis of pelvis: CODE(S): M86.9 - Osteomyelitis, unspecified PLAN: Wound care - Wound VAC at 150 mmHg to left ischial ulcer and the left sacral ulcer with adaptic over the bone. Dressing to be changed 3 times per week. Left posterior knee pack with Dakins moistened gauze and cover with gauze daily. Wound culture of left posterior knee 11/19/20 positive for Staphylococcus aureus and Corynebacterium striatum. She has been started on Augmentin. Operative wound cultures: Ischial pressure sore tissue positive for Staphylococcus aureus, Streptococcus group G, Streptococcus mitis/oralis, Anaerobic cocci and Bacteroides pyogenes. Ischial bone culture Staphylococcus aureus, Enterococcus faecalis, Streptococcus mitis/oralis , Anaerobic cocci, and Bacteroides pyogenes. Sacral tissue positive Staphylococcus aureus, Streptococcus mitis/oralis, Anaerobic cocci and Bacteroides pyogenes. Vancomycin IV had to be stopped due elevated liver enzymes. The other IV antibiotics that would be sensitive would cost the patient too much per week and patient doesn't want placed in a facility for IV antibiotics. She decided to start Augmentin po, which will not have as good bone coverage as an IV antibiotics would have. Wound culture of left posterior knee ulcer obtained today, 11/19/20. Depending on the result of the culture, it may necessitate treatment with antibiotics. Wound culture obtained on 07/24/20 of left ischial ulcer positive for Pseudomonas oryzihabitans and MRSE. Cultures of sacral ulcer positive for E.coli, Enterococcus faecalis, Staphylococcus haemolyticus. She was started Doxycycline, Cipro and Augmentin. Encouraged patient not to sit in her wheelchair for 12 hours. If she is in her wheelchair, then she must shift her weight every 20 minutes so she is not sitting in the same place all the time. Follow up 2 weeks.
== END 2020-12-06 23:59 ==
LOC: WC 10:45
PROVIDERS: PCP Family Medicine; Referring Provider Nurse Practitioner Family; Visit Provider Nurse Practitioner Family
DX: L89.324 Pressure ulcer of left buttock, stage 4 (principal); L89.154 Pressure ulcer of sacral region, stage 4; L97.822 Non-pressure chronic ulcer of other part of left lower leg with fat layer exposed; M86.9 Osteomyelitis, unspecified; G82.20 Paraplegia, unspecified; Z85.528 Personal history of other malignant neoplasm of kidney; B95.2 Enterococcus as the cause of diseases classified elsewhere; B95.8 Unspecified staphylococcus as the cause of diseases classified elsewhere; D62 Acute posthemorrhagic anemia
CPT/HCPCS: 11042; 11043; 11046; 87070; 87075; 87077; 87186; 87205

== ENCOUNTER 2020-12-24 10:15 | Outpatient (RCR) | payer MEDICARE, SELFPAY ==
[2020-12-07 00:27] VITALS: BP 90/52; PULSE 93; RESP 20; TEMP 36.4; BMI 22.9
[2020-12-10 10:20] VITALS: BP 89/57; PULSE 88; TEMP 37.1; BMI 22.9
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
[2020-12-24 10:26] VITALS: BP 72/42; PULSE 85; RESP 16; TEMP 36.8; BMI 22.9
--- NOTE | 2020-12-24 12:35 | PCM.WC.PN ---
History of Present Illness Date of Service: 12/24/20 Chief Complaint: Sacral pressure sore, Stage IV, and left ischial pressure sore, Stage IV. History of Wound: 55 year old female with a history of renal cancer and metastasis to the bone [facility] with a sacral pressure sore and left ischial pressure sore. was admitted on 07/11/20 and discharged on 07/13/20 for sepsis related to an infected decubitus ulcer. She has been a paraplegic for 2.5 years after her back hardware broke. Her Oncologist is Dr. Valiente and she is on Cabometyx. Surgery on 09/19/20 for 1. Excision left ischial pressure sore, Stage IV, with partial ostectomy for osteomyelitis. 2. Excision sacral pressure sore, Stage IV. Discharged 09/26/20. New ulcer to left posterior knee caused by her urine leg bag rubbing against her skin. Her first noticed it a few days ago as a scabbing. Wound culture obtained 11/19/20 which was positive for Staphylococcus aureus and Corynebacterium striatum and is being treated with Augmentin. She obtained second degree ko on her anterior thighs bilaterally a couple weeks ago when having a rice pack that was too hot. They have been placing on triple antibiotic ointment and covering with ABD pads. Wound care - Wound VAC at 150 mmHg to left ischial ulcer and the left sacral ulcer with adaptic over the bone. Dressing to be changed 3 times per week. Left posterior knee pack with Dakins moistened gauze and cover with gauze daily. Will get approval for wound VAC to the left posterior knee and connect with a Y-connector. Right anterior thigh burn will start Collagen hydrogel covered with adaptic then gauze daily. Left anterior leg continue adaptic then gauze daily. Wound culture of left posterior knee 11/19/20 positive for Staphylococcus aureus and Corynebacterium striatum. She has been started on Augmentin. Operative wound cultures: Ischial pressure sore tissue positive for Staphylococcus aureus, Streptococcus group G, Streptococcus mitis/oralis, Anaerobic cocci and Bacteroides pyogenes. Ischial bone culture Staphylococcus aureus, Enterococcus faecalis, Streptococcue mitis/oralis , Anaerobic cocci, and Bacteroides pyogenes. Sacral tissue positive Staphylococcus aureus, Streptococcus mitis/oralis, Anaerobic cocci and Bacteroides pyogenes. Vancomycin IV had to be stopped due elevated liver enzymes. The other IV antibiotics that would be sensitive would cost the patient too much per week and patient doesn't want placed in a facility for IV antibiotics. She decided to start Augmentin po, which will not have as good bone coverage as an IV antibiotics would have. She had been sitting in her wheelchair up to 12 hours a day while her is at work. They have someone come and help her out of bed in the morning and get her into her wheelchair. She has a new cushion on her wheelchair from the past several months. Wound culture was done on 07/24/20. The left ischial pressure sore was positive for Pseudomonas oryzihabitans and MRSE. The sacral pressure sore was positive for E.coli, Entercoccus faecalis, Methicillin resistant Staphylococcus haemolyticus. She was started Doxycycline, Cipro and Augmentin. Today she denies fever, chills and states she has a good appetite. Encourage nutritional supplementation with protein to help the healing process. Progress of Wound: Left ischial and sacral ulcer improving. Left posterior knee with increased fat necrosis, suspect that constant pressure when her knee is bent is causing the large amount of slough and fat necrosis. Left anterior thigh burn is improved. Right anterior burn cluster has increased slough in areas. Objective Data Objective Data Vital Signs: Vital Signs Temp Pulse Resp BP 98.3 F 85 16 72/42 L 12/24/20 10:26 12/24/20 10:26 12/24/20 10:26 12/24/20 10:26 Weight: 148 lb Body Mass Index (BMI) 22.9 Charges/Coding Addendum Addendum: 28249 and 57525 x3 for right anterior thigh burn cluster Procedures Integumentary [id number]: [id number] Jerilyn musc/fascia 20 sq cm/< (ischial, sacral and left posterior knee ulcers) Add On Codes: 40272 Jerilyn musc/fascia add-on (x3) Physical Exam Const alert and oriented x3 General Appearance: cooperative HEENT normocephalic Lymph Lymphatic: no lymphedema noted Resp normal respiratory effort Cardio regular rate GI Palpation: soft Extremity normal capillary refill Skin Wound Narrative: Sacral and left ischial ulcers are beefy pink with bone exposure in both but are showing mild improvement. Left posterior knee ulcer continues to have increased slough and fat necrosis. Right anterior thigh burn cluster with areas of moisture and scabbing. Left anterior thigh ulcer is improved and almost healed. Debridement Note Debridement Note Wound debrided: ischial ulcer Laterality: Left Wound Grade/Stage: Stage IV Type of Debridement: Excisional debridement Anesthesia Used: 4% Lidocaine Solution Depth: Down to and including healthy tissue, in the subcutaneous layer, to muscle and to bone Percentage of wound debrided: 100 Instrument Used: 7mm curette Tissue Removed: Subcutaneous tissue and slough into the muscle with bone exposure Severity: Fat Layer Exposed Amount of bleeding with debridement: Mild Bleeding Controlled with: Pressure and Compression and gauze Patient tolerated procedure: Patient tolerated procedure well Post-Debridement Measurements and Additional Note: Post-Debridement Measurements/Treatment WC - Nurse 1 - General Ulcer Assessment Start: 12/10/20 10:20 Freq: Status: Active Protocol: YOLA Activity Type Activity Date Activity User E-Sign Co-Sign Detail Recorded Client Recorded Date Recorded By Document 12/10/20 10:20 KR [id number] 12/10/20 10:37 KR Document 12/24/20 10:26 ML [id number] 12/24/20 10:48 ML 12/10/20 12/24/20 10:20 10:26 - Today's Visit Information Type of service Follow-up Visit 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 ) ) Arrival Mode Wheelchair Wheelchair Transfer Assistance None Patient Identification Verified (Name & Yes Yes ) Patient Requires Transmission-Based No Precautions Safety Precautions NA Height and Weight Body Mass Index (BMI) 22.9 22.9 BMI Classification Normal Normal Vital Signs Temperature (97.8 F-99.1 F) 98.7 F 98.3 F Temperature Source Temporal Temporal Pulse Rate (60-100) 88 85 Pulse Location Monitor Monitor Respiratory Rate (12-18) 16 Respiratory rate source Monitor Blood Pressure (90/60-120/80) 89/57 L 72/42 L Blood Pressure Mean (mm Hg) 67 52 Source Monitor Monitor Position Sitting Supine Blood Pressure Location Right Arm Left Arm History Since Last Visit- (Skip if this is Patient's initial visit) Have you changed medications since your No No last visit? Any new allergies or adverse reactions No No Had a fall/change in ADL's that may No No increase risk of falls Signs or symptoms of abuse and/or No No neglect since last visit Have you been in the hospital since your No No last visit? Has dressing in place as prescribed Yes Yes Has compression in place as prescribed N/A N/A Has offloadiing in place as prescribed N/A Yes Experienced any changes in pain level or No No management Left Footwear Regular Shoe Regular Shoe Right Footwear Regular Shoe Regular Shoe Pain Scale: 0-10 Numeric Is Patient Pain Free? Yes Yes WC - Nurse 1 - General Ulcer Measurement Start: 12/10/20 10:20 Freq: Status: Active Protocol: Activity Type Activity Date Activity User E-Sign Co-Sign Detail Recorded Client Recorded Date Recorded By Document 12/10/20 10:20 KR [id number] 12/10/20 10:37 KR Document 12/24/20 10:26 ML [id number] 12/24/20 10:48 ML 12/10/20 12/24/20 10:20 10:26 Wound Center Nurse 1 #5 L Post Knee -Current Size (cm) - Length 1.4 2 -Current Size (cm) - Width 2 1.5 -Current Size (cm) - Depth 2.5 3 -Total Square Cm 2.8 3.0 -Exudate Amt Medium Large -Exudate Type Serosanguineous Serosanguineous -Wound Margin Distinct, Distinct, Outline Outline Attached Attached -Granulation Amt Large (67-100%) Large (67-100%) -Granulation Quality Red -Slough/Fibrin Yes -Necrosis Amt Small (1-33%) Large (67-100%) -Necrotic Tissue Type Adherent Slough Adherent Slough -Structure Exposed Fat Layer Exposed -Texture (Annamaria-wound Skin Appearance) Assessed, Assessed Scarring -Moisture (Annamaria-wound Skin Appearance) No Abnormality, Assessed Assessed -Color (Annamaria-wound Skin Appearance) No Abnormality, Assessed Assessed -Temperature (Annamaria-wound Skin No Abnormality No Abnormality Appearance) (Pt Warm) (Pt Warm) -Tenderness on Palpation (Annamaria-wound No No Skin Appearance) -Ulcer Cleansing Soap and Water Soap and Water -Foul Odor after Cleansing No -Anesthetic Used 4% Lidocaine Solution #3 left ischium -Current Size (cm) - Length 8 7.8 -Current Size (cm) - Width 7.5 6 -Current Size (cm) - Depth 4 3 -Total Square Cm 60.0 46.8 -Tunneling Yes -Tunneling Position (O'clock) 12 -Tunneling Distance (cm) 5 -Exudate Amt Medium Large -Exudate Type Serosanguineous Serosanguineous -Wound Margin Distinct, Distinct, Outline Outline Attached Attached -Granulation Amt Large (67-100%) Large (67-100%) -Granulation Quality Red -Slough/Fibrin Yes -Necrosis Amt Small (1-33%) Large (67-100%) -Necrotic Tissue Type Adherent Slough Adherent Slough -Structure Exposed Tendon,Fat Layer Exposed -Texture (Annamaria-wound Skin Appearance) Assessed, Assessed Scarring -Moisture (Annamaria-wound Skin Appearance) Assessed -Color (Annamaria-wound Skin Appearance) No Abnormality, Assessed Assessed -Temperature (Annamaria-wound Skin No Abnormality No Abnormality Appearance) (Pt Warm) (Pt Warm) -Tenderness on Palpation (Annamaria-wound No No Skin Appearance) -Ulcer Cleansing Soap and Water Soap and Water -Foul Odor after Cleansing No -Anesthetic Used 4% Lidocaine Solution #4 sacrum -Current Size (cm) - Length 6.5 6 -Current Size (cm) - Width 5 4.5 -Current Size (cm) - Depth 3.8 3 -Total Square Cm 32.5 27.0 -Tunneling Position (O'clock) 4 -Tunneling Distance (cm) 5 -Exudate Amt Medium Large -Exudate Type Serosanguineous Serosanguineous -Wound Margin Distinct, Distinct, Outline Outline Attached Attached -Granulation Amt Large (67-100%) Large (67-100%) -Granulation Quality Red -Slough/Fibrin Yes -Necrosis Amt Small (1-33%) Large (67-100%) -Necrotic Tissue Type Adherent Slough -Structure Exposed Tendon,Fat Layer Exposed -Texture (Annamaria-wound Skin Appearance) Assessed, Assessed Scarring -Moisture (Annamaria-wound Skin Appearance) No Abnormality, Assessed Assessed -Color (Annamaria-wound Skin Appearance) No Abnormality, Assessed Assessed -Temperature (Annamaria-wound Skin No Abnormality No Abnormality Appearance) (Pt Warm) (Pt Warm) -Tenderness on Palpation (Annamaria-wound No No Skin Appearance) -Ulcer Cleansing Soap and Water Soap and Water -Foul Odor after Cleansing No No -Anesthetic Used 4% Lidocaine Solution WC - Nurse 2 - General Ulcer CM Notes Start: 12/10/20 10:20 Freq: Status: Active Protocol: Activity Type Activity Date Activity User E-Sign Co-Sign Detail Recorded Client Recorded Date Recorded By Document 12/10/20 10:46 ESTRELLA [id number] 12/10/20 11:01 JF Document 12/24/20 10:52 JF [id number] 12/24/20 11:17 JF 12/10/20 12/24/20 10:46 10:52 Wound Center Nurse 2 6-right medial thigh cluster -Time 11:13 -Correct Patient Yes -Correct Side, Site, Position Yes -Correct Procedure Yes -Procedure Performed Yes -Type of Procedure Debridement -Clinical Debridement Subcutaneous -Tissue Removed Subcutaneous -Post Debridement (cm) - Length 8.7 -Post Debridement (cm) - Width 7 -Post Debridement (cm) - Depth 0.3 -Total Square (Post) (cm) 60.9 -Area of Debridement (cm) - Length 8.7 -Area of Debridement (cm) - Width 7 -Total Square (Area) (cm) 60.9 -Tunneling No -Undermining/Tunneling No -Circular Undermining No -Wound/Ulcer Outcome Not Healed -Ulcer Cleansing Rinsed/ Irrigated with Saline -Foul Odor after Cleansing No -Bioengineered Tissue No -Bleeding Controlled with Pressure -Offloading No -Treatment Response Procedure Tolerated Well -Debridement - Subq, 1st 20sq cm Yes -Debridement, SubQ, ea addt'l 20sq cm 3 or part thereof #5 L Post Knee -Time 10:48 10:58 -Correct Patient Yes Yes -Correct Side, Site, Position Yes Yes -Correct Procedure Yes Yes -Procedure Performed Yes Yes -Type of Procedure Debridement Debridement -Clinical Debridement Subcutaneous Muscle / Fascia -Tissue Removed Subcutaneous Muscle -Post Debridement (cm) - Length 1.5 2 -Post Debridement (cm) - Width 2 2 -Post Debridement (cm) - Depth 1.7 1.7 -Total Square (Post) (cm) 3.0 4 -Area of Debridement (cm) - Length 1.5 2 -Area of Debridement (cm) - Width 2 2 -Total Square (Area) (cm) 3.0 4 -Tunneling No No -Undermining/Tunneling No No -Circular Undermining No No -Wound/Ulcer Outcome Not Healed Not Healed -Ulcer Cleansing Rinsed/ Rinsed/ Irrigated with Irrigated with Saline Saline -Foul Odor after Cleansing No No -Bioengineered Tissue No No -Bleeding Controlled with Pressure Pressure -Offloading No No -Treatment Response Procedure Procedure Tolerated Well Tolerated Well -Debridement - Subq, 1st 20sq cm Yes -Debridement - Muscle / Fascia, 1st No 20sq cm #3 left ischium -Time 10:48 10:59 -Correct Patient Yes Yes -Correct Side, Site, Position Yes Yes -Correct Procedure Yes Yes -Procedure Performed Yes Yes -Type of Procedure Debridement Debridement -Clinical Debridement Muscle / Fascia Muscle / Fascia -Tissue Removed Muscle Muscle,Fascia -Post Debridement (cm) - Length 8 7 -Post Debridement (cm) - Width 6 8.3 -Post Debridement (cm) - Depth 5 5.4 -Total Square (Post) (cm) 48 58.1 -Area of Debridement (cm) - Length 8 7 -Area of Debridement (cm) - Width 6 8.3 -Total Square (Area) (cm) 48 58.1 -Tunneling No No -Undermining/Tunneling No No -Circular Undermining No No -Wound/Ulcer Outcome Not Healed Not Healed -Ulcer Cleansing Rinsed/ Rinsed/ Irrigated with Irrigated with Saline Saline -Foul Odor after Cleansing No No -Bioengineered Tissue No No -Bleeding Controlled with Pressure Pressure -Offloading No No -Treatment Response Procedure Procedure Tolerated Well Tolerated Well -Debridement - Muscle / Fascia, 1st No Yes 20sq cm -Debridement, Muscle/Fascia, ea addt'l 5 20sq cm or part thereof #4 sacrum -Time 10:49 10:59 -Correct Patient Yes Yes -Correct Side, Site, Position Yes Yes -Correct Procedure Yes Yes -Procedure Performed Yes Yes -Type of Procedure Debridement Debridement -Clinical Debridement Muscle / Fascia Bone -Tissue Removed Muscle Muscle,Fascia -Post Debridement (cm) - Length 6 6 -Post Debridement (cm) - Width 5 7 -Post Debridement (cm) - Depth 3 2.8 -Total Square (Post) (cm) 30 42 -Area of Debridement (cm) - Length 6 6 -Area of Debridement (cm) - Width 5 7 -Total Square (Area) (cm) 30 42 -Tunneling No No -Undermining/Tunneling No No -Circular Undermining No No -Wound/Ulcer Outcome Not Healed Not Healed -Ulcer Cleansing Rinsed/ Rinsed/ Irrigated with Irrigated with Saline Saline -Foul Odor after Cleansing No No -Bioengineered Tissue No No -Bleeding Controlled with Pressure Pressure -Offloading No -Type of Offloading Total Contact Cast (TCC) - Left ($) -Treatment Response Procedure Procedure Tolerated Well Tolerated Well -Debridement - Muscle / Fascia, 1st Yes 20sq cm -Debridement, Muscle/Fascia, ea addt'l 3 20sq cm or part thereof -Debridement - Bone, 1st 20sq cm No Pain Scale: 0-10 Numeric Is Patient Pain Free? Yes Yes WC - Nurse 3 - General Ulcer D/C NN Start: 12/10/20 10:20 Freq: Status: Active Protocol: Activity Type Activity Date Activity User E-Sign Co-Sign Detail Recorded Client Recorded Date Recorded By Document 12/10/20 11:12 KR [id number] 12/10/20 11:13 KR Document 12/24/20 11:30 AK [id number] 12/24/20 11:34 AK 12/10/20 12/24/20 11:12 11:30 Wound Care Nurse 3 6-right medial thigh cluster -Ulcer Cleansing Rinsed/ Irrigated with Saline -Foul Odor after Cleansing No -Primary Dressing Applied C Hydrogel ($), NonAdherent Contact Layer -Primary Dressing Covered/Secured with Dry Gauze, Secured with Tape #5 L Post Knee -Ulcer Cleansing Rinsed/ Rinsed/ Irrigated with Irrigated with Saline Saline -Foul Odor after Cleansing No -Other Dressing wet to dry with Moist gauze dakins -Primary Dressing Covered/Secured with Dry Gauze Dry Gauze, Secured with Tape #3 left ischium -Ulcer Cleansing Rinsed/ Rinsed/ Irrigated with Irrigated with Saline Saline -Foul Odor after Cleansing No -Other Dressing wet to dry Moist gauze -Primary Dressing Covered/Secured with Dry Gauze, Dry Gauze, Secured with Secured with Tape Tape #4 sacrum -Ulcer Cleansing Rinsed/ Rinsed/ Irrigated with Irrigated with Saline Saline -Foul Odor after Cleansing No -Other Dressing wet to dry moist gauze -Primary Dressing Covered/Secured with Dry Gauze, Dry Gauze, Secured with Secured with Tape Tape Treatment Response Procedure Tolerated Well Pain Scale: 0-10 Numeric Is Patient Pain Free? Yes Yes WC - Visit Discharge Discharge Condition Stable Stable Ambulatory Status Wheelchair Wheelchair Transportation Private Auto Private Auto Accompanied by Facility Type Home Health Orders Sent Yes Additional Wound Wound debrided: sacral ulcer Laterality: Not Applicable Wound Grade/Stage: stage IV Type of Debridement: Excisional debridement Anesthesia Used: 5% Lidocaine Gel Depth: Down to and including healthy tissue, in the subcutaneous layer, to muscle and to bone Percentage of wound debrided: 100 Instrument Used: 7mm curette Tissue Removed: Subcutaneous tissue and slough into the muscle with bone exposure Severity: Fat Layer Exposed Amount of bleeding with debridement: Mild Bleeding Controlled with: Pressure and Compression and gauze Patient tolerated procedure: Patient tolerated procedure well Additional Wound Wound debrided: posterior knee ulcer Laterality: Left Wound Grade/Stage: Stage IV Type of Debridement: Excisional debridement Anesthesia Used: 4% Lidocaine Solution Depth: Down to and including healthy tissue Percentage of wound debrided: 100 Instrument Used: 3mm curette Tissue Removed: Subcutaneous tissue and slough into the muscle Severity: Fat Layer Exposed Amount of bleeding with debridement: Mild Bleeding Controlled with: Pressure Patient tolerated procedure: Patient tolerated procedure well Additional Wound Wound debrided: Right anterior thigh burn cluster Laterality: Right Wound Grade/Stage: Stage II Type of Debridement: Excisional debridement Anesthesia Used: 4% Lidocaine Solution Depth: Down to and including healthy tissue and in the subcutaneous layer Percentage of wound debrided: 100 Instrument Used: 3mm curette Tissue Removed: Subcutaneous tissue and slough with increased fat necrosis Severity: Fat Layer Exposed Amount of bleeding with debridement: Mild Bleeding Controlled with: Pressure Patient tolerated procedure: Patient tolerated procedure well Assessment/Plan Assessment/Plan (1) Pressure sore of left ischium, stage 4: CODE(S): L89.324 - Pressure ulcer of left buttock, stage 4 (2) Sacral decubitus ulcer, stage IV: CODE(S): L89.154 - Pressure ulcer of sacral region, stage 4 (3) Ulcer of left knee: CODE(S): L97.829 - Non-pressure chronic ulcer of other part of left lower leg with unspecified severity QUALIFIERS: Non-pressure ulcer stage: with fat layer exposed Qualified Code(s): L97.822 - Non-pressure chronic ulcer of other part of left lower leg with fat layer exposed (4) Second degree burn of thigh: CODE(S): T24.219A - Burn of second degree of unspecified thigh, initial encounter (5) Osteomyelitis of pelvis: CODE(S): M86.9 - Osteomyelitis, unspecified (6) Malignant neoplasm of unspecified kidney, except renal pelvis: CODE(S): C64.9 - Malignant neoplasm of unspecified kidney, except renal pelvis (7) Paraplegia following spinal cord injury: CODE(S): G82.20 - Paraplegia, unspecified (8) Metastatic renal cell carcinoma to bone: CODE(S): C79.51 - Secondary malignant neoplasm of bone; C64.9 - Malignant neoplasm of unspecified kidney, except renal pelvis PLAN: Wound care - Wound VAC at 150 mmHg to left ischial ulcer and the left sacral ulcer with adaptic over the bone. Dressing to be changed 3 times per week. Left posterior knee pack with Dakins moistened gauze and cover with gauze daily until vac is approved. Will get approval for wound VAC to the left posterior knee and connect with a Y-connector. Right anterior thigh burn will start Collagen hydrogel covered with adaptic then gauze daily. Left anterior leg continue adaptic then gauze daily. Wound culture of left posterior knee 11/19/20 positive for Staphylococcus aureus and Corynebacterium striatum. She has been started on Augmentin. Operative wound cultures: Ischial pressure sore tissue positive for Staphylococcus aureus, Streptococcus group G, Streptococcus mitis/oralis, Anaerobic cocci and Bacteroides pyogenes. Ischial bone culture Staphylococcus aureus, Enterococcus faecalis, Streptococcus mitis/oralis , Anaerobic cocci, and Bacteroides pyogenes. Sacral tissue positive Staphylococcus aureus, Streptococcus mitis/oralis, Anaerobic cocci and Bacteroides pyogenes. Vancomycin IV had to be stopped due elevated liver enzymes. The other IV antibiotics that would be sensitive would cost the patient too much per week and patient doesn't want placed in a facility for IV antibiotics. She decided to start Augmentin po, which will not have as good bone coverage as an IV antibiotics would have. Wound culture of left posterior knee ulcer obtained today, 11/19/20. Depending on the result of the culture, it may necessitate treatment with antibiotics. Wound culture obtained on 07/24/20 of left ischial ulcer positive for Pseudomonas oryzihabitans and MRSE. Cultures of sacral ulcer positive for E.coli, Enterococcus faecalis, Staphylococcus haemolyticus. She was started Doxycycline, Cipro and Augmentin. Encouraged patient not to sit in her wheelchair for 12 hours. If she is in her wheelchair, then she must shift her weight every 20 minutes so she is not sitting in the same place all the time. Follow up 2 weeks.
== END 2021-01-06 23:59 ==
LOC: WC 10:15
PROVIDERS: PCP Family Medicine; Referring Provider Nurse Practitioner Family; Visit Provider Nurse Practitioner Family
DX: L89.154 Pressure ulcer of sacral region, stage 4 (principal); L89.324 Pressure ulcer of left buttock, stage 4; C64.9 Malignant neoplasm of unspecified kidney, except renal pelvis; C79.51 Secondary malignant neoplasm of bone; G82.20 Paraplegia, unspecified; L97.822 Non-pressure chronic ulcer of other part of left lower leg with fat layer exposed; T24.219A Burn of second degree of unspecified thigh, initial encounter; M86.9 Osteomyelitis, unspecified; B95.2 Enterococcus as the cause of diseases classified elsewhere; B95.7 Other staphylococcus as the cause of diseases classified elsewhere
CPT/HCPCS: 11042; 11043; 11045; 11046; 29445

== ENCOUNTER 2020-12-27 15:34 | Inpatient (IN) | payer MEDICARE, SELFPAY ==
[2020-12-27] VITALS (12 sets, daily range): BP systolic 73–110; BP diastolic 43–66; PULSE 71–117; RESP 12–18; TEMP 36.8–38.2; O2SAT 94–100; BMI 22.2; BMI 21.9
--- NOTE | 2020-12-27 16:21 | EKG12_ITS ---
Test Reason : FEVER Blood Pressure : / mmHG Vent. Rate : 105 BPM Atrial Rate : 105 BPM P-R Int : 000 ms QRS Dur : 066 ms QT Int : 290 ms P-R-T Axes : 000 -13 144 degrees QTc Int : [address] & T wave abnormality, consider lateral ischemia Abnormal ECG Confirmed by COLETTE ROWLAND, VALENTINA ([id number]), editorial clerk TENISHA HEIN ([id number]) on 01/01/2021 8:38:50 AM Referred By: BB Confirmed By:VALENTINA ALVARENGA MD
--- NOTE | 2020-12-27 16:47 | EX.ED.DYSGE1 ---
HPI History of Present Illness Chief Complaint: Complaint Informant: patient and spouse/S.O. Narrative Narrative: Sent in by oncologist, Dr. Valiente, from immunotherapy for concerns of urosepsis. History of renal cell cancer mets to the T-spine diagnosed 8 years ago currently just secondary to this. Chronic Blount. Reports cloudy urine. No other states more sediment some malodorous over the past couple days. Patient reporting nausea vomiting chills being weak. Reported there is a temp of 102 at the facility. Pulse was 105. Blood pressure 113/45. Patient denies cough. Nonvaccinated with Covid. No headache. Patient dealing with stage IV decubitus ulcer currently on the wound VAC with a brightly past September by Dr. Mullen. Reporting by significant other wound is improving. She is off antibiotics for the past week. Has [id number] sepsis in the past. Prior similar symptoms: Yes PFSH [facility] Medical History Acute renal failure KELLEE (acute kidney injury) Atelectasis of left lung Cancer Cardiology follow-up encounter Chronic pain syndrome Easy bruising Encephalopathy acute Excessive bleeding Fever Gastric reflux History of irregular heartbeat History of migraine History of non-ST elevation myocardial infarction (NSTEMI) (01/28/19) Immunocompromised state Indwelling urethral catheter present Low iron Malignant neoplasm of unspecified kidney, except renal pelvis Metastatic renal cell carcinoma to bone Non-ischemic cardiomyopathy Non-smoker Nonobstructive atherosclerosis of coronary artery Paralysis Paraplegia following spinal cord injury Post-menopausal Pressure sore of left ischium, stage 4 Pulmonary embolism Rheumatoid arthritis Right pulmonary embolus (01/28/19) Sacral decubitus ulcer, stage IV Sepsis Sepsis Septic shock (01/29/19) Single kidney Takotsubo syndrome Thyroid disease Uses wheelchair Home Medications temazepam 30 mg PO QHS 12/12/18 [History Last Taken 12/26/20] apixaban 5 mg PO BID 02/07/19 [History Last Taken 12/27/20] acyclovir 400 mg tablet 400 mg PO DAILY tab 08/19/19 [History Last Taken 12/27/20] furosemide 20 mg tablet 20 mg PO BID tab 08/19/19 [History Last Taken 12/27/20] methadone 5 mg tablet 10 mg PO QHS tab 08/19/19 [History Last Taken 12/26/20] oxycodone 10 mg tablet 10 mg PO TID PRN PRN 08/19/19 [History Last Taken 12/27/20] baclofen 5 mg tablet 7.5 mg PO BID tab 11/16/19 [History Last Taken 12/27/20] gabapentin 100 mg capsule 100 mg PO BID 11/16/19 [History Last Taken 12/27/20] gabapentin 300 mg capsule 300 mg PO QHS cap 11/16/19 [History Last Taken 12/26/20] calcium carbonate [Calcium 500] 500 mg PO DAILY 07/11/20 [History Last Taken 12/26/20 12:00] cholecalciferol (vitamin D3) 25 mcg PO DAILY 07/11/20 [History Last Taken 12/26/20 12:00] levothyroxine [Euthyrox] 75 mcg PO MOTUWETHFRSA 07/11/20 [History Last Taken 12/26/20] levothyroxine [Euthyrox] 150 mcg PO PLASCENCIA 07/11/20 [History Last Taken 12/23/20] melatonin 20 mg PO QHS 07/11/20 [History Last Taken 12/26/20] methadone 15 mg PO DAILY 07/11/20 [History Last Taken 12/27/20] methenamine hippurate 1 g PO BID 07/11/20 [History Last Taken 12/27/20] polyethylene glycol 3350 17 g PO QODAY 07/11/20 [History Last Taken 07/09/20] carvedilol [Coreg] 3.125 mg PO BID 09/13/20 [History Last Taken 12/27/20] potassium chloride 20 meq PO TID 12/27/20 [History Last Taken 12/27/20] Allergy/AdvReac Type Severity Reaction Status Date / Time ondansetron [From Zofran] AdvReac HEADACHE, Verified 12/27/20 15:39 SEVERE Family History Mother Lung cancer Father Lung cancer Surgical History (Updated 09/13/20 @ 11:52 by Alecia Zamora) History of cholecystectomy History of left heart catheterization (01/31/19) History of right nephrectomy (03/30/13) History of spinal surgery (2018) History of surgery History of vascular access device Social History (Updated 12/27/20 @ 20:[address] Marily Cagle MD) household members: spouse housing: house Smoking Status: Never smoker alcohol intake: never substance use type: does not use ROS ROS ED Constitutional Constitutional ED: Reports chills; Denies fever(s) or sweats Eyes Eyes: Denies change in vision ENT ENT ED: Denies dysphagia or sore throat Cardiovascular Cardiovascular: Denies chest pain, leg edema, palpitations or racing heartbeat Respiratory/Chest Respiratory/Chest: Denies cough, dyspnea or dyspnea on exertion Gastrointestinal Gastrointestinal: Reports nausea and vomiting; Denies abdominal pain or diarrhea Genitourinary Genitourinary ED: Reports other Details: Malodorous urine ; Denies dysuria, hematuria or urinary frequency Musculoskeletal Musculoskeletal: Denies back pain, extremity pain or neck pain Integumentary Denies rash or wounds Neurologic Neurologic: Denies headache(s), paresthesias or weakness EXAM Physical Exam Const Vital Signs: 12/27/20 15:36 12/27/20 16:54 12/27/20 16:55 Temperature 99.9 F H Temperature Source Temporal Pulse Rate 101 H 117 H Respiratory Rate 18 16 Blood Pressure 98/63 110/66 Blood Pressure Mean 74 80 Pulse Ox 100 94 94 Oxygen Delivery Method Room Air Room Air Room Air 12/27/20 17:01 12/27/20 18:27 12/27/20 18:58 Temperature 99.7 F H 100.1 F H Temperature Source Temporal Core Pulse Rate 96 93 Respiratory Rate 16 18 Blood Pressure 82/51 L 79/47 L Blood Pressure Mean 61 57 Pulse Ox 97 100 Oxygen Delivery Method Room Air Room Air 12/27/20 19:11 12/27/20 19:53 Temperature 100.8 F H 100.7 F H Temperature Source Core Core Pulse Rate 88 93 Respiratory Rate 16 16 Blood Pressure 88/47 L 88/49 L Blood Pressure Mean 60 62 Pulse Ox 99 98 Oxygen Delivery Method Room Air Room Air Positive well nourished and well developed General Appearance ED: well developed and NAD HEENT Reports moist mucous membranes normocephalic and atraumatic Eyes PERRL, EOMs intact bilaterally and conjunctivae normal General Eye ED: Yes normal appearance of both eyes Neck no lymphadenopathy and supple General: Negative for tenderness Chest Wall Chest: Negative for tenderness Resp normal respiratory effort and normal air movement Effort and Inspection: symmetric chest movement; Negative for respiratory distress Cardio regular rate and no murmurs Rate: tachycardic Peripheral Pulses: pulses 2+ throughout GI normal to inspection, nondistended, normoactive bowel sounds and non-tender Palpation: Negative for guarding or rebound tenderness present Narrative: Leg bag Blount dark urine Back/Spine no CVA tenderness and no thoracic nor lumbar tenderness Back/Spine Narrative: Wound VAC to mid sacrum surrounding skin no erythema, there was brown stools under dressing right lower. Extremity General Extremety ED: Negative for edema or tenderness General Extremity: Negative for edema Neuro oriented x3 and no sensory deficits noted Sensorium / Orientation: awake and alert Skin Skin Narrative: See above MDM MDM MDM Narrative Medical decision making narrative: Sepsis labs were ordered upon arrival. Urine was cloudy. White count at 9.5 hemoglobin 7.7. Last 1 was 10. She had brown stools during this evaluation. Persistent other has been transfused 1 time in the past however none recently. She has been as low as 70 in the past and range from 7-10 from previous labs. Creatinine 0.48. Lactic acid 0.8. Blood cultures pending. Urine noted positive infection. Culture sent. Patient covered with Zosyn secondary to sepsis. She was given 2 L of fluid, pressures were in the 80s, per second other blood pressure typically systolic 90s. I spoke with hospitalist Dr. Cagle who knows her well and states this is her baseline blood pressures. Sugar admitted to the [facility] telemetry for further management. Lab Data Attestation: I reviewed the patient's lab results. Labs: Laboratory Results - last 24 hr 12/27/20 12/27/20 12/27/20 17:15 17:15 17:15 WBC 9.5 RBC 3.27 L Hgb 7.7 L Hct 26.8 L MCV 82.0 MCH 23.5 L MCHC 28.7 L RDW Std Deviation 51.0 H RDW Coeff of Deborah 17.2 H Plt Count 611 H MPV 8.6 Immature Gran % (Auto) 0.500 Neut % (Auto) 84.1 H Lymph % (Auto) 9.0 L Pike % (Auto) 5.1 Eos % (Auto) 1.1 Baso % (Auto) 0.2 Absolute Neuts (auto) 8.0 H Absolute Lymphs (auto) 0.86 Nucleated RBC % 0 PT INR APTT Sodium 138 Potassium 4.1 Chloride 104 Carbon Dioxide 27.0 Anion Gap 7 BUN 10 Creatinine 0.48 L Estim Creat Clear Calc 121.05 Est GFR (MDRD) Af Amer 171 Est GFR (MDRD) Non-Af 142 BUN/Creatinine Ratio 20.8 H Glucose 94 Lactic Acid 0.8 Calcium 7.6 L Phosphorus Magnesium Total Bilirubin 0.30 AST 15 ALT 9 L Alkaline Phosphatase 178 H Total Protein 6.4 Albumin 1.7 L Globulin 4.7 H Albumin/Globulin Ratio 0.4 L Urine Color Urine Clarity Urine pH Ur Specific Powell Urine Protein Urine Glucose (UA) Urine Ketones Urine Occult Blood Urine Nitrite Urine Bilirubin Urine Urobilinogen Ur Leukocyte Esterase Urine RBC Urine WBC Ur Squamous Epith Cells Urine Bacteria Urine Mucus 12/27/20 12/27/20 12/27/20 17:15 18:30 18:50 WBC RBC Hgb Hct MCV MCH MCHC RDW Std Deviation RDW Coeff of Deborah Plt Count MPV Immature Gran % (Auto) Neut % (Auto) Lymph % (Auto) Pike % (Auto) Eos % (Auto) Baso % (Auto) Absolute Neuts (auto) Absolute Lymphs (auto) Nucleated RBC % PT 21.3 H INR 1.9 APTT 48.3 H Sodium Potassium Chloride Carbon Dioxide Anion Gap BUN Creatinine Estim Creat Clear Calc Est GFR (MDRD) Af Amer Est GFR (MDRD) Non-Af BUN/Creatinine Ratio Glucose Lactic Acid Calcium Phosphorus 2.3 L Magnesium 2.3 Total Bilirubin AST ALT Alkaline Phosphatase Total Protein Albumin Globulin Albumin/Globulin Ratio Urine Color Yellow Urine Clarity Cloudy Urine pH 6.5 Ur Specific Powell 1.015 Urine Protein 100 H Urine Glucose (UA) Normal Urine Ketones Negative Urine Occult Blood 250 H Urine Nitrite Positive H Urine Bilirubin Negative Urine Urobilinogen 1 H Ur Leukocyte Esterase 500 H Urine RBC 0 SEEN Urine WBC >100 SEEN Ur Squamous Epith Cells 0 SEEN Urine Bacteria 0 SEEN Urine Mucus 0 SEEN Radiography Chest X-Ray - ED: 1 View, Read by ED Physician and Read by Radiologist Diagnostic Testing: Clinical Impression(s) from Imaging Studies Chest X-Ray 12/27/20 17:30 IMPRESSION: No acute radiographic abnormalities. Electronically Signed: Nnamdi Iverson MD at 18:09 EDT Tel , Service support , EKG Initial EKG: Attestation: I personally reviewed and interpreted this EKG as follows: Comments: Sinus tachycardia 105, no ST changes. Artifact at baseline. Critical Care Time Critical Care Time: Yes Critical care time (excluding procedures): Discussing w/Patient &/or Family/Back End Web Developer, Discussing w/Consultants, Arranging Admission or Transfer, Performing Direct Patient Care at Bedside and - (45 minutes) Discharge Plan Dx/Rx/DC Orders Clinical Impression: Urinary tract infection, Metastatic renal cell carcinoma to bone, Sacral decubitus ulcer, stage IV, Sepsis Disposition Disposition: Acute Care Hospital [facility] Discharge Date/Time: 12/27/20 20:30
[2020-12-27] MEDS: 0.9% Normal Saline 1,000 ML 999 ML IV ×2 (17:14→19:00)
[2020-12-27 17:29] LABS: Absolute Lymphocyte Count 0.86 X10^3/uL (0.83-4.51); Basophil# 0.02 X10^3/uL; Basophil% 0.2 % (0-1); Eosinophils% 1.1 % (0-5); Hematocrit 26.8 % (37-47); Hemoglobin 7.7 g/dL (12.0-15.0); Lymphocyte # 0.86 X10^3/ul (0.83-4.51); Mean Corp Hgb Conc 28.7 g/dL (32-36); Mean Corpuscular Hgb 23.5 pg (27.0-32.0); Mean Platelet Vol. 8.6 fl (6.2-12.0); Monocyte# 0.49 X10^3/uL; Monocyte% 5.1 % (0-10); NRBC Flagged by Analyzer 0 % (0-5); Neutrophil % 84.1 % (47-70); Platelet Count 611 K/mm3 (150-450); RBC Distribution Width CV 17.2 % (11.6-14.6); Red Blood Count 3.27 M/mm3 (4.2-5.4); White Blood Count 9.5 K/mm3 (4.4-11.0)
--- NOTE | 2020-12-27 17:30 | RAD_ITS ---
INDICATION: fever EXAMINATION/TECHNIQUE: X-RAY - XR Chest 1 View COMPARISON: 09/20/2020. FINDINGS: The lungs are clear. The cardiomediastinal silhouette is unremarkable. Left-sided chest port. Elevation of the left hemidiaphragm with left basilar atelectasis. No pleural effusion or pneumothorax. No acute osseous abnormalities. GARCIA rods in place. RAD/Chest 1 View (Portable) IMPRESSION: No acute radiographic abnormalities. Electronically Signed: Nnamdi Iverson MD at 18:09 EDT Tel , Service support ,
[2020-12-27 17:50] LABS: ALB/GLOB Ratio 0.4 RATIO (0.9-2.4); AST(SGOT) 15 U/L (15-37); Alanine Aminotransfer ALT/SGPT 9 U/L (13-56); Albumin, Serum 1.7 g/dL (3.2-5.0); Alkaline Phosphatase 178 U/L (45-117); Anion Gap 7 (5-15); BUN 10 mg/dL (7-18); BUN/Creat Ratio 20.8 RATIO (10-20); Calcium,Total 7.6 mg/dL (8.5-10.1); Chloride 104 mmol/L (98-107); Creatinine, Serum 0.48 mg/dL (0.55-1.02); EST Glomerular Filtration Rate 142 mL/min (>60); Est Glom Filt Rate - Afr Amer 171 mL/min (>60); Estimated Creatinine Clearance 121.05 ml/min; Globulin 4.7 g/dL (2.2-4.2); Glucose 94 mg/dL (74-106); Potassium 4.1 mmol/L (3.5-5.1); Protein, Total 6.4 g/dL (6.4-8.2); Sodium Level 138 mmol/L (136-145)
[2020-12-27 18:06] LABS: Lactic Acid 0.8 mmol/L (0.4-1.9)
--- NOTE | 2020-12-27 18:45 | ED.RN ---
Patient's catheter was exchanged for different catheter per order. During this change patient was noted to have moderate bowel movement. Patient also noted to have torn wound vac dressing covering sacral ulcer with which fecal matter intruding.
[2020-12-27 19:00] LABS: Bacteria 0 SEEN /hpf (None Seen); Color, Urine Yellow (Yellow); Glucose, Dipstick Normal (Normal); Ketone-Dipstick Negative (Negative); Leukocyte Esterase-Dipstick 500 /ul (Negative); Mucous, Urine 0 SEEN /hpf (<or=2+); Nitrite-Dipstick Positive (Negative); Occult Blood-Urine 250 /ul (Negative); Protein-Dipstick 100 mg/dl (Negative); Red Blood Cells-Urine 0 SEEN /hpf (0-5); Specific Gravity, Urine 1.015 (1.002-1.030); Squamous Epithelial Cells - UA 0 SEEN /hpf (5-10); Urine Bilirubin Dipstick Negative (Negative); Urine Clarity Cloudy (Clear); Urine Urobilinogen 1 mg/dl (Normal); Urine pH 6.5 (5.0 - 8.0)
[2020-12-27 19:14] LABS: International Normalized Ratio 1.9; Prothrombin Time (Protime)PT. 21.3 SECONDS (11.7-14.9)
[2020-12-27 19:15] LABS: Partial Thromboplast Time 48.3 Seconds (24.1-36.2)
[2020-12-27 19:23] LABS: White Blood Cells >100 SEEN /hpf (0-5)
--- NOTE | 2020-12-27 19:40 | HP.PCM.HOS_ITS ---
HPI - General General Date of Admission: 12/27/20 Date of Service: 12/27/20 Chief Complaint: UTI, referred to ED per Dr. Valiente HPI Narrative The patient is a 55 y/o F w/ PMHx: Chronic pressure sore Sacrum and L Ischemia stage IV, Metastatic Renal Cell Cancer to the bone including to the T-spine with associated paraplegia secondary to spinal cord injury following with Dr. Valiente on chronic immunotherapy, Nonobstructive CAD, Nonischemic cardiomyopathy, HTN, HLD who presents to the [facility] ED on 12/27/20 with history of recently noted cloudy foul-smelling urine for the last couple days with nausea, emesis, chills and increased weakness with T-max at facility 102 with pulse 105 with concern per patient's oncologist for urinary tract infection with chronic Richardson catheter prompting referral to the ED for evaluation. Work-up in the ED included T 99.9 initially with T-max in the ED 100.8, heart rate at max in the ED 117, BP 98/63 initially however has decreased down to 79/47 with most recent 88/47 with map of 60 however per review of records patient is chronically low often 80-90 systolic over 40 to 50s diastolic,, respiratory rate 16, 99% on room air, CBC with WBC 9.5, hemoglobin 7.7, platelets 611 with left shift, coags with PT 21.3, INR 1.9, PTT 48.3, CMP with BUN/creatinine 10/0.48, lactic acid 0.8, alk phos 178, rapid Covid antigen negative, chest x-ray with no acute cardiopulmonary findings, UA with cloudy urine, specific [place]he 1.015, protein 100, occult blood 250, positive nitrate, 500 leukocyte esterase, urine WBCs greater than 100 with no urine bacteria noted, urine culture pending per ED, blood culture x2 pending per ED. [facility] Medical History Acute renal failure KELLEE (acute kidney injury) Atelectasis of left lung Cancer Cardiology follow-up encounter Chronic pain syndrome Easy bruising Encephalopathy acute Excessive bleeding Fever Gastric reflux History of irregular heartbeat History of migraine History of non-ST elevation myocardial infarction (NSTEMI) (01/28/19) Immunocompromised state Indwelling urethral catheter present Low iron Malignant neoplasm of unspecified kidney, except renal pelvis Metastatic renal cell carcinoma to bone Non-ischemic cardiomyopathy Non-smoker Nonobstructive atherosclerosis of coronary artery Paralysis Paraplegia following spinal cord injury Post-menopausal Pressure sore of left ischium, stage 4 Pulmonary embolism Rheumatoid arthritis Right pulmonary embolus (01/28/19) Sacral decubitus ulcer, stage IV Sepsis Sepsis Septic shock (01/29/19) Single kidney Takotsubo syndrome Thyroid disease Uses wheelchair Home Medications temazepam 30 mg PO QHS 12/12/18 [History Last Taken 12/26/20] apixaban 5 mg PO BID 02/07/19 [History Last Taken 12/27/20] acyclovir 400 mg tablet 400 mg PO DAILY tab 08/19/19 [History Last Taken ] furosemide 20 mg tablet 20 mg PO BID tab 08/19/19 [History Last Taken 12/27/20] methadone 5 mg tablet 10 mg PO QHS tab 08/19/19 [History Last Taken 12/26/20] oxycodone 10 mg tablet 10 mg PO TID PRN PRN 08/19/19 [History Last Taken 12/27/20] baclofen 5 mg tablet 7.5 mg PO BID tab 11/16/19 [History Last Taken 12/27/20] gabapentin 100 mg capsule 100 mg PO BID 11/16/19 [History Last Taken 12/27/20] gabapentin 300 mg capsule 300 mg PO QHS cap 11/16/19 [History Last Taken 12/26/20] calcium carbonate [Calcium 500] 500 mg PO DAILY 07/11/20 [History Last Taken 12/26/20 12:00] cholecalciferol (vitamin D3) 25 mcg PO DAILY 07/11/20 [History Last Taken 12/26/20 12:00] levothyroxine [Euthyrox] 75 mcg PO MOTUWETHFRSA 07/11/20 [History Last Taken 12/26/20] levothyroxine [Euthyrox] 150 mcg PO PLASCENCIA 07/11/20 [History Last Taken 12/23/20] melatonin 20 mg PO QHS 07/11/20 [History Last Taken 12/26/20] methadone 15 mg PO DAILY 07/11/20 [History Last Taken 12/27/20] methenamine hippurate 1 g PO BID 07/11/20 [History Last Taken 12/27/20] polyethylene glycol 3350 17 g PO QODAY 07/11/20 [History Last Taken 07/09/20] carvedilol [Coreg] 3.125 mg PO BID 09/13/20 [History Last Taken 12/27/20] potassium chloride 20 meq PO TID 12/27/20 [History Last Taken 12/27/20] Allergy/AdvReac Type Severity Reaction Status Date / Time ondansetron [From Zofran] AdvReac HEADACHE, Verified 12/27/20 15:39 SEVERE Family History Mother Lung cancer Father Lung cancer Surgical History (Updated 09/13/20 @ 11:52 by Alecia Zamora) History of cholecystectomy History of left heart catheterization (01/31/19) History of right nephrectomy (03/30/13) History of spinal surgery (2018) History of surgery History of vascular access device Social History (Updated 12/27/20 @ 20:[address] Marily Cagle MD) household members: spouse housing: house Smoking Status: Never smoker alcohol intake: never substance use type: does not use ROS ROS Narrative Admission Review of Systems: CONSTITUTIONAL: No weight loss, + fever, chills, weakness or fatigue. HEENT: Eyes: No visual loss, blurred vision, double vision or yellow sclerae. Ears, Nose, Throat: No hearing loss, sneezing, congestion, runny nose or sore throat. SKIN: + Chronic wounds. CARDIOVASCULAR: No chest pain, chest pressure or chest discomfort, palpitations, edema, orthopnea, syncopal events. RESPIRATORY: No shortness of breath, cough or sputum, wheezing, hemoptysis. GASTROINTESTINAL: + anorexia, nausea, vomiting, abdominal pain, No melena, BRBPR. GENITOURINARY: + Chronic richardson, cloudy urine, foul smelling. NEUROLOGICAL: + Chronic paraplegia. No headache, dizziness, syncope, ataxia, change in bowel or bladder control, seizure. MUSCULOSKELETAL: + muscle, back pain, joint pain or stiffness. HEMATOLOGIC: + anemia, bleeding or bruising. LYMPHATICS: No enlarged nodes. No history of splenectomy. PSYCHIATRIC: No history of depression or anxiety. ENDOCRINOLOGIC: No reports of sweating, cold or heat intolerance. No polyuria or polydipsia. ALLERGIES: No history of asthma, hives, eczema or rhinitis. Vital Signs Vital Signs Vital Signs: 12/27/20 15:36 12/27/20 16:54 12/27/20 16:55 Temperature 99.9 F H Temperature Source Temporal Pulse Rate 101 H 117 H Respiratory Rate 18 16 Blood Pressure 98/63 110/66 Blood Pressure Mean 74 80 Pulse Ox 100 94 94 Oxygen Delivery Method Room Air Room Air Room Air 12/27/20 17:01 12/27/20 18:27 12/27/20 18:58 Temperature 99.7 F H 100.1 F H Temperature Source Temporal Core Pulse Rate 96 93 Respiratory Rate 16 18 Blood Pressure 82/51 L 79/47 L Blood Pressure Mean 61 57 Pulse Ox 97 100 Oxygen Delivery Method Room Air Room Air 12/27/20 19:11 Temperature 100.8 F H Temperature Source Core Pulse Rate 88 Respiratory Rate 16 Blood Pressure 88/47 L Blood Pressure Mean 60 Pulse Ox 99 Oxygen Delivery Method Room Air Weight Weight: 138 lb Body Mass Index (BMI) 22.2 Physical Exam Narrative Physical Examination: General: Awake, alert, oriented x 3 and cooperative, laying in the ED bed, fatigued, no acute distress. Skin: Normal color, normal turgor, no icterus, no cyanosis except significant sacral and ischial wounds, wound VAC in place with no marked or foul drainage noted or periwound significant erythema. HEENT: AT/NC, EOMI, PERRLA, dry MM, no carotid bruits or JVD noted. Lungs: Mildly diminished, greater bases, no rales, ronchi or wheezing. Heart: Regular rate and rhythm; no gallop, rub audible. Abdomen: Soft, mild generalized discomfort with palpation, or suprapubic region, ND, mildly hyperactive BS, no HSM. Extremities: No cyanosis, clubbing, or edema. Neurological: Patient awake, alert, oriented as noted, cognitive function intact; pupils equally reactive to light and accommodation, cranial nerves II- XII grossly normal, patient with chronic paraplegia, focal deficits associated, strength severely global decrease secondary to underlying comorbidities and acute presentation. Psychiatric: Affect appears fatigued, ill-appearing, no acute evidence of depressive or anxiety feelings. Results Lab / Micro Data Result Diagrams: 12/27/20 17:15 12/27/20 17:15 Labs: Laboratory Results - last 24 hr 12/27/20 17:15: WBC 9.5, RBC 3.27 L, Hgb 7.7 L, Hct 26.8 L, MCV 82.0, MCH 23.5 L , MCHC 28.7 L, RDW Std Deviation 51.0 H, RDW Coeff of Deborah 17.2 H, Plt Count 611 H, MPV 8.6, Immature Gran % (Auto) 0.500, Neut % (Auto) 84.1 H, Lymph % (Auto) 9.0 L, Alexander % (Auto) 5.1, Eos % (Auto) 1.1, Baso % (Auto) 0.2, Absolute Neuts (auto) 8.0 H, Absolute Lymphs (auto) 0.86, Nucleated RBC % 0 12/27/20 17:15: Sodium 138, Potassium 4.1, Chloride 104, Carbon Dioxide 27.0, Anion Gap 7, BUN 10, Creatinine 0.48 L, Estim Creat Clear Calc 121.05, Est GFR (MDRD) Af Amer 171, Est GFR (MDRD) Non-Af 142, BUN/Creatinine Ratio 20.8 H, Glucose 94, Calcium 7.6 L, Total Bilirubin 0.30, AST 15, ALT 9 L, Alkaline Phosphatase 178 H, Total Protein 6.4, Albumin 1.7 L, Globulin 4.7 H, Albumin/Globulin Ratio 0.4 L 12/27/20 17:15: Lactic Acid 0.8 12/27/20 18:30: PT 21.3 H, INR 1.9, APTT 48.3 H 12/27/20 18:50: Urine Color Yellow, Urine Clarity Cloudy, Urine pH 6.5, Ur Speci fic [place] 1.015, Urine Protein 100 H, Urine Glucose (UA) Normal, Urine Ketones Negative, Urine Occult Blood 250 H, Urine Nitrite Positive H, Urine Bilirubin Negative, Urine Urobilinogen 1 H, Ur Leukocyte Esterase 500 H, Urine RBC 0 SEEN, Urine WBC >100 SEEN, Ur Squamous Epith Cells 0 SEEN, Urine Bacteria 0 SEEN, Urine Mucus 0 SEEN Micro: Microbiology 12/27/20 17:00 Nasal Secretion SARS-CoV-2 Antigen (Rapid) - Final Radiology Impression Chest X-Ray 12/27/20 17:30 IMPRESSION: No acute radiographic abnormalities. Electronically Signed: Nnamdi Iverson MD at 18:09 EDT Tel , Service support , Assessment & Plan Assessment/Plan (1) UTI (urinary tract infection) due to urinary indwelling Richardson catheter: QUALIFIERS: Encounter type: initial encounter Indwelling urinary catheter type: indwelling urethral catheter Qualified Code(s): T83.511A - Infection and inflammatory reaction due to indwelling urethral catheter, initial encounter; N39.0 - Urinary tract infection, site not specified PLAN: The patient is a 55 y/o F w/ PMHx: Chronic pressure sore Sacrum and L Ischemia stage IV, Metastatic Renal Cell Cancer to the bone including to the T-spine with associated paraplegia secondary to spinal cord injury following with Dr. Valiente on chronic immunotherapy, Nonobstructive CAD, Nonischemic cardiomyopathy, HTN, HLD who presents to the [facility] ED on 12/27/20 with history of recently noted cloudy foul-smelling urine for the last couple days with nausea, emesis, chills and increased weakness with T-max at facility 102 with pulse 105 with concern per patient's oncologist for urinary tract infection with chronic Richardson catheter prompting referral to the ED for evaluation. 1. Acute Complicated Urinary Tract Infection with Chronic Richardson Catheter with associated Hypotension: Will admit to PCU, maintain on monitor given hypotension above baseline, normally upper 80-90s/40-50s, UA upon ED evaluation remarkable, pending UCx, richardson changed in the ED, will continue IVFs, monitor I/Os, continue IV Zosyn w/ transition as able pending sensitivities and speciation. Bld cx x 2 obtained in the ED. 2. Chronic pressure sore Sacrum and L Ischemia stage IV: Following with wound care, most recent visit 12/24/2020 with prior surgical interventions most recently in September and recently treated for staphylococcal and corneal bacterial stratum infection of the left posterior knee 11/19/2020, wound VAC ongoing to left ischial ulcer and left sacral ulcer with Adaptic over the bone, continue dressing change 3 times per week, wound RN consulted, offloading, positional changes, barrier cream as needed. 3. Metastatic renal cell cancer to the bone with associated paraplegia seconda ry to spinal cord involvement: Patient following with Dr. Valiente with ongoing immunotherapy, resulting paraplegia with as noted chronic pressure sores and wounds, magnesium and phosphorus levels requested with supplementation as needed, continue treatment as noted #2, PT/OT/case management consultations for discharge planning. We will continue patient home baclofen and chronic pain regimen. 4. Nonobstructive CAD: We will continue patient home apixaban, holding hypertensive regimen and as of note not on CHERI inhibitor or ARB nor statin therapy, defer to outpatient. 5. Nonischemic cardiomyopathy: We will continue patient home apixaban, holding patient Coreg and Lasix given hypotension above baseline as noted above, not on statin therapy nor CHERI inhibitor/ARB per review of records 6. Hypertension: Patient does have history of hypertension and is on hypertensive agents however she routinely has blood pressures baseline upper 80s to 90 systolic over 40 to 50s diastolic and may benefit from consideration of de-escalation off of these regimens. 7. Hyperlipidemia: Not on statin therapy, defer to outpatient. 8. Hypothyroidism: We will continue patient home levothyroxine regimen. 9. Chronic anemia: Admission hemoglobin 7.7, baseline appears 7-10, most recent 09/24/2019 10.3, will continue to trend and obtain guaiac additionally given decreased from September. 10. DVT prophylaxis: SCDs, continue patient apixaban regimen. 11. CODE status: Patient JACQUELIN is her spouse was and living will is currently in place. Discussed CODE status at length including difference between FULL co de, DNR-CCA and DNR-CC status. Following discussions about the differences in these status, requested Full Code status. Advanced Care Planning Face to Face Time: 16 minutes. Charges/Coding Visit Charges Inpatient E&M: 43877 Init Hosp L3 Procedures Hospitalists Procedures: 18019 Advncd Care Plan 30 Min
[2020-12-27] MEDS: Acetaminophen 325 MG Tablet 650 MG PO (19:46)
--- NOTE | 2020-12-27 20:42 | ED.RN ---
Called [place] RN in PCU in regards to hypotension; patient and states patient normally has B/P in high 80's to low 90's
[2020-12-27 20:44] LABS: Magnesium 2.3 mg/dL (1.6-2.6); Phosphorus 2.3 mg/dL (2.5-4.9)
--- NOTE | 2020-12-27 20:50 | PCS.PANDOC ---
PANDEMIC DOCUMENTATION INITIATED: Date: 10/22/2020 Time: 190
--- NOTE | 2020-12-27 21:15 | PCS.PANDOC ---
PANDEMIC DOCUMENTATION INITIATED: Date: 10/22/2020 Time: 2100
[2020-12-27] MEDS: 0.9% Normal Saline 1,000 ML 100 ML IV (22:06)
[2020-12-27] MEDS: Methenamine Hippurate 1 GM Tablet PO (22:14)
[2020-12-27] MEDS: Gabapentin 300 MG Capsule PO (22:14)
[2020-12-27] MEDS: Temazepam 15 MG Capsule 30 MG PO (22:14)
[2020-12-27] MEDS: Furosemide 20 MG Tablet PO (22:14)
[2020-12-27] MEDS: APIXABAN 5 MG TABLET PO (22:14)
[2020-12-27] MEDS: Gabapentin 100 MG Capsule PO (22:14)
[2020-12-27] MEDS: Potassium Chloride Oral Tablet 20 MEQ PO (22:14)
[2020-12-27] MEDS: MELATONIN 10 MG TABLET 20 MG PO (22:14)
[2020-12-27] MEDS: busPIRone 5 MG Tablet 7.5 MG PO (22:14)
[2020-12-27] MEDS: Menthol/Lanolin/Calamine/Znox 113 GM Tube 1 APPLIC TOPICAL (22:15)
[2020-12-27] MEDS: Methadone 10 MG Tablet PO (22:34)
[2020-12-28] VITALS (35 sets, daily range): BP systolic 78–125; BP diastolic 45–81; PULSE 61–90; RESP 11–18; TEMP 36.7–38.1; O2SAT 97–100
--- NOTE | 2020-12-28 02:04 | NURSING ---
This RN called patient report to MAINTENANCE WELDERSHERRON Russo
--- NOTE | 2020-12-28 02:46 | EKG12_ITS ---
Test Reason : CHEST PAIN Blood Pressure : / mmHG Vent. Rate : 064 BPM Atrial Rate : 064 BPM P-R Int : 112 ms QRS Dur : 066 ms QT Int : 430 ms P-R-T Axes : -20 000 -44 degrees QTc Int : 443 ms Sinus rhythm with Premature supraventricular complexes Low voltage QRS Septal infarct , age undetermined , cannot be excluded ST & T wave abnormality, consider anterior ischemia Abnormal ECG Confirmed by NICA ROWLAND, JOSE ALFREDO ([id number]), image editor TENISHA HEIN ([id number]) on 01/02/2021 9:43:02 AM Referred By: Confirmed By:JOSE ALFREDO YOUSIF MD
[2020-12-28 03:46] LABS: Troponin-I HS 5 pg/mL (3.0-54.0)
[2020-12-28] MEDS: TITRATION PARAMETER CHANGE 1 EACH IV (06:09)
--- NOTE | 2020-12-28 06:32 | EX.PCM.CONCC ---
Assessment & Plan Assessment/Plan (1) Septic shock: PLAN: RECOMMENDATIONS: 1. Stop continuous IV fluids with normal saline. Utilize lactated Ringer's, if necessary. 2. Continue Levophed to maintain mean arterial pressure at or above 65 mmHg. 3. Discontinue Lasix. 4. Hold Eliquis given anemia. 5. Obtain repeat labs and send type and screen. 6. Start Protonix twice daily. IMPRESSIONS: 1. Septic shock with concern for urinary tract source of infection The patient did require transfer to the ICU in the setting of fluid nonresponsive hypotension, requiring initiation of vasopressor support. Patient does report that she normally runs low at her baseline from a hemodynamic perspective. The patient is on appropriate antimicrobials for now. Given her history of polymicrobial infections in the past, will obtain infectious diseases consultation. She will be continued on Levophed to maintain hemodynamic stability. In addition to the aforementioned, the patient is anemic and will therefore receive 1 unit of packed red blood cells, in hopes that this will also help alleviate her vasopressor requirement. The patient's home Lasix and Coreg have been placed on hold. 2. Anemia The patient presented to the hospital with a hemoglobin of 7.7 g/dL. Previously, the patient had a hemoglobin of 10.3 in September 2020. There are no overt signs of active blood loss at the current time. However, will transfuse 1 unit of packed red blood cells today. Check H&H posttransfusion. The patient's Eliquis will be placed on hold. Twice daily Protonix will be initiated. 3. Chronic sacral wounds Continue local wound care. 4. Metastatic renal cell cancer to the bone secondary paraplegia/nonobstructive coronary disease/hyperlipidemia/hypothyroidism Complicates care, management, recovery and prognosis. Hold antihypertensives and diuretic. Check TSH level. TIME: 40 minutes of critical care time, independent of procedures, was spent addressing the patient's septic shock, anemia, chronic sacral wounds, review of all data and collaboration with the care team. ([id number]) HPI Consult Data Date of Consult: 12/28/20 HPI Narrative Reason for Consultation: Septic shock HPI Narrative: The patient is a 55-year-old female, with a history as outlined below, who presented to the emergency department on December 27 with fevers, chills, nausea, emesis and foul-smelling urine, with concern for urinary tract infection. The patient has a history of metastatic renal cell cancer to the bone, paraplegia secondary to spinal cord injury, chronic stage IV sacral pressure sore (followed by wound care) and nonischemic cardiomyopathy. Surface echocardiogram completed in August 2020 demonstrated an ejection fraction of 50%. The patient does have a chronic indwelling Blount catheter. She does report a great deal of fatigue recently. She denies any hematemesis, melena or hematochezia. On presentation to the emergency department, the patient was noted to have a low-grade fever with tenuous hemodynamics. Initial laboratory evaluation revealed a hemoglobin of 7.7 g/dL, previously 10.3 g/dL on September 23. Platelet count was elevated to 611,000. Coagulation profile revealed an INR of 1.9. Chemistry profile was notable for a phosphorus of 2.3. Urine analysis was positive for nitrites, leukocyte esterase and greater than 100 white blood cells. Prior culture data has been positive for staph aureus, Enterococcus and E. coli. Prior urine culture was positive for Proteus, Morganella and Enterococcus. The patient has also had Pseudomonas isolated from his urine culture in the past as well. Chest x-ray obtained in the emergency department demonstrated no acute cardiopulmonary process. The patient received supplemental IV fluids and was placed on antimicrobials. Although she was initially admitted to a medical surgical floor, the patient did ultimately require transfer to the medical intensive care unit due to fluid refractory hypotension, necessitating vasopressor initiation. Overnight, the patient has remained stable and is currently on Levophed at 5 mcg/min to maintain hemodynamic stability. The patient is currently on Zosyn and continuous IV fluids. [facility] Medical History Acute renal failure KELLEE (acute kidney injury) Atelectasis of left lung Cancer Cardiology follow-up encounter Chronic pain syndrome Easy bruising Encephalopathy acute Excessive bleeding Fever Gastric reflux History of irregular heartbeat History of migraine History of non-ST elevation myocardial infarction (NSTEMI) (01/28/19) Immunocompromised state Indwelling urethral catheter present Low iron Malignant neoplasm of unspecified kidney, except renal pelvis Metastatic renal cell carcinoma to bone Non-ischemic cardiomyopathy Non-smoker Nonobstructive atherosclerosis of coronary artery Paralysis Paraplegia following spinal cord injury Post-menopausal Pressure sore of left ischium, stage 4 Pulmonary embolism Rheumatoid arthritis Right pulmonary embolus (01/28/19) Sacral decubitus ulcer, stage IV Sepsis Sepsis Septic shock (01/29/19) Single kidney Takotsubo syndrome Thyroid disease Uses wheelchair Home Medications temazepam 30 mg PO QHS 12/12/18 [History Last Taken 12/26/20] apixaban 5 mg PO BID 02/07/19 [History Last Taken 12/27/20] acyclovir 400 mg tablet 400 mg PO DAILY tab 08/19/19 [History Last Taken 12/27/20] furosemide 20 mg tablet 20 mg PO BID tab 08/19/19 [History Last Taken 12/27/20] methadone 5 mg tablet 10 mg PO QHS tab 08/19/19 [History Last Taken 12/26/20] oxycodone 10 mg tablet 10 mg PO TID PRN PRN 08/19/19 [History Last Taken 12/27/20] baclofen 5 mg tablet 7.5 mg PO BID tab 11/16/19 [History Last Taken 12/27/20] gabapentin 100 mg capsule 100 mg PO BID 11/16/19 [History Last Taken 12/27/20] gabapentin 300 mg capsule 300 mg PO QHS cap 11/16/19 [History Last Taken 12/26/20] calcium carbonate [Calcium 500] 500 mg PO DAILY 07/11/20 [History Last Taken 12/26/20 12:00] cholecalciferol (vitamin D3) 25 mcg PO DAILY 07/11/20 [History Last Taken 12/26/20 12:00] levothyroxine [Euthyrox] 75 mcg PO MOTUWETHFRSA 07/11/20 [History Last Taken 12/26/20] levothyroxine [Euthyrox] 150 mcg PO PLASCENCIA 07/11/20 [History Last Taken 12/23/20] melatonin 20 mg PO QHS 07/11/20 [History Last Taken 12/26/20] methadone 15 mg PO DAILY 07/11/20 [History Last Taken 12/27/20] methenamine hippurate 1 g PO BID 07/11/20 [History Last Taken 12/27/20] polyethylene glycol 3350 17 g PO QODAY 07/11/20 [History Last Taken 07/09/20] carvedilol [Coreg] 3.125 mg PO BID 09/13/20 [History Last Taken 12/27/20] potassium chloride 20 meq PO TID 12/27/20 [History Last Taken 12/27/20] Allergy/AdvReac Type Severity Reaction Status Date / Time ondansetron [From Zofran] AdvReac HEADACHE, Verified 12/27/20 15:39 SEVERE Family History Mother Lung cancer Father Lung cancer Surgical History (Updated 09/13/20 @ 11:52 by Alecia Zamora) History of cholecystectomy History of left heart catheterization (01/31/19) History of right nephrectomy (03/30/13) History of spinal surgery (2018) History of surgery History of vascular access device Social History (Updated 12/27/20 @ 20:[address] Marily Cagle MD) household members: spouse housing: house Smoking Status: Never smoker alcohol intake: never substance use type: does not use ROS Constitutional Constitutional: Reports fatigue, fever(s) and malaise; Denies body ache(s) Eyes Eyes: Denies blurry vision or change in vision ENT HEENT: Denies dizziness or headache(s) Cardiovascular Cardiovascular: Denies chest pain or dyspnea Respiratory/Chest Respiratory/Chest: Denies cough or dyspnea Gastrointestinal Gastrointestinal: Reports nausea and vomiting; Denies abdominal pain or diarrhea Genitourinary Genitourinary: Denies flank pain Musculoskeletal Musculoskeletal: Denies arthralgias or back pain Integumentary Integumentary: Reports wounds Neurologic Neurologic: Denies abnormal speech or confusion Endocrine Endocrinology: Reports fatigue Hematologic/Lymphatic Hematologic/Lymphatic: Denies easy bleeding or easy bruising Physical Exam Const alert, oriented x3 and no apparent distress General Appearance: cooperative HEENT normocephalic, head/scalp atraumatic and moist oral mucous membranes Eyes PERRL, EOMs intact bilaterally and conjunctivae normal Neck supple General: trachea midline Chest inspection of chest normal Resp normal respiratory effort Auscultation: Negative for rales, rhonchi or wheezes Cardio regular rate and regular rhythm GI normal to inspection, nondistended, normoactive bowel sounds Extremity no clubbing, cyanosis or edema Skin Wound Narrative: Chronic sacral wounds present. Neuro oriented x3 and CN's II-XII intact bilaterally Neuro Narrative: Chronic paraplegia Speech: speech normal Psych cooperative and affect normal Lab / Micro Data Result Diagrams: 12/28/20 07:00 12/28/20 07:00 Labs: Laboratory Results - last 24 hr 12/27/20 17:15: WBC 9.5, RBC 3.27 L, Hgb 7.7 L, Hct 26.8 L, MCV 82.0, MCH 23.5 L, MCHC 28.7 L, RDW Std Deviation 51.0 H, RDW Coeff of Deborah 17.2 H, Plt Count 611 H, MPV 8.6, Immature Gran % (Auto) 0.500, Neut % (Auto) 84.1 H, Lymph % (Auto) 9.0 L, [place] % (Auto) 5.1, Eos % (Auto) 1.1, Baso % (Auto) 0.2, Absolute Neuts (auto) 8.0 H, Absolute Lymphs (auto) 0.86, Nucleated RBC % 0 12/27/20 17:15: Sodium 138, Potassium 4.1, Chloride 104, Carbon Dioxide 27.0, Anion Gap 7, BUN 10, Creatinine 0.48 L, Estim Creat Clear Calc 121.05, Est GFR (MDRD) Af Amer 171, Est GFR (MDRD) Non-Af 142, BUN/Creatinine Ratio 20.8 H, Glucose 94, Calcium 7.6 L, Total Bilirubin 0.30, AST 15, ALT 9 L, Alkaline Phosphatase 178 H, Total Protein 6.4, Albumin 1.7 L, Globulin 4.7 H, Albumin/Globulin Ratio 0.4 L 12/27/20 17:15: Lactic Acid 0.8 12/27/20 17:15: Phosphorus 2.3 L, Magnesium 2.3 12/27/20 18:30: PT 21.3 H, INR 1.9, APTT 48.3 H 12/27/20 18:50: Urine Color Yellow, Urine Clarity Cloudy, Urine pH 6.5, Ur Specific [place] 1.015, Urine Protein 100 H, Urine Glucose (UA) Normal, Urine Ketones Negative, Urine Occult Blood 250 H, Urine Nitrite Positive H, Urine Bilirubin Negative, Urine Urobilinogen 1 H, Ur Leukocyte Esterase 500 H, Urine RBC 0 SEEN, Urine WBC >100 SEEN, Ur Squamous Epith Cells 0 SEEN, Urine Bacteria 0 SEEN, Urine Mucus 0 SEEN 12/28/20 03:15: Troponin I High Sens 5 Micro: Microbiology 12/27/20 17:00 Nasal Secretion SARS-CoV-2 Antigen (Rapid) - Final Radiology Impression Chest X-Ray 12/27/20 17:30 IMPRESSION: No acute radiographic abnormalities. Electronically Signed: Nnamdi Ivreson MD at 18:09 EDT Tel , Service support , Charges/Coding Procedures Hospitalists Procedures: [id number] Critial Care 1st Hr
[2020-12-28] MEDS: Potassium Chloride Oral Tablet 20 MEQ PO ×3 (06:49→22:38)
[2020-12-28] MEDS: Levothyroxine 75 MCG Tablet PO (06:49)
[2020-12-28 07:27] LABS: Absolute Lymphocyte Count 0.95 X10^3/uL (0.83-4.51); Absolute Neutrophil Count 8.6 X10^3/uL (2.0-7.7); Basophil# 0.03 X10^3/uL; Basophil% 0.3 % (0-1); Eosinophil# 0.32 X10^3/uL; Hematocrit 26.4 % (37-47); Hemoglobin 7.5 g/dL (12.0-15.0); Lymphocyte # 0.95 X10^3/ul (0.83-4.51); Mean Corp Hgb Conc 28.4 g/dL (32-36); Mean Corpuscular Hgb 23.7 pg (27.0-32.0); Mean Corpuscular Volume 83.3 fL (81-99); Mean Platelet Vol. 8.8 fl (6.2-12.0); Monocyte# 0.67 X10^3/uL; Monocyte% 6.3 % (0-10); NRBC Flagged by Analyzer 0 % (0-5); Neutrophil # 8.58 X10^3/uL (2.7-7.7); Neutrophil % 80.8 % (47-70); Platelet Count 649 K/mm3 (150-450); RBC Distribution Width CV 17.1 % (11.6-14.6); RBC Distribution Width SD 52.2 fl (35.1-43.9); Red Blood Count 3.17 M/mm3 (4.2-5.4); White Blood Count 10.6 K/mm3 (4.4-11.0)
[2020-12-28 07:49] LABS: ALB/GLOB Ratio 0.3 RATIO (0.9-2.4); AST(SGOT) 10 U/L (15-37); Alanine Aminotransfer ALT/SGPT 7 U/L (13-56); Albumin, Serum 1.3 g/dL (3.2-5.0); Alkaline Phosphatase 148 U/L (45-117); Anion Gap 7 (5-15); BUN 6 mg/dL (7-18); BUN/Creat Ratio 21.5 RATIO (10-20); Calcium,Total 6.7 mg/dL (8.5-10.1); Chloride 112 mmol/L (98-107); Creatinine, Serum 0.28 mg/dL (0.55-1.02); EST Glomerular Filtration Rate 265 mL/min (>60); Est Glom Filt Rate - Afr Amer 320 mL/min (>60); Estimated Creatinine Clearance 207.52 ml/min; Globulin 3.9 g/dL (2.2-4.2); Glucose 98 mg/dL (74-106); Magnesium 2.1 mg/dL (1.6-2.6); Phosphorus 1.6 mg/dL (2.5-4.9); Potassium 3.5 mmol/L (3.5-5.1); Protein, Total 5.2 g/dL (6.4-8.2); Sodium Level 142 mmol/L (136-145)
--- NOTE | 2020-12-28 09:06 | WOUNDNOTE ---
Pt sitting up in bed eating breakfast. plan to apply wound VAC to the sacral and ischial wound. pt has been getting Dakins to the left posterior knee wound as well. pt follows at the wound healing center.
[2020-12-28] MEDS: Calcium (Elemental) 500 MG Tablet PO (09:28)
[2020-12-28] MEDS: Acyclovir 200 MG Capsule 400 MG PO (09:29)
[2020-12-28] MEDS: Gabapentin 100 MG Capsule PO ×2 (09:29→21:39)
[2020-12-28] MEDS: Methenamine Hippurate 1 GM Tablet PO ×2 (09:29→22:38)
[2020-12-28] MEDS: Menthol/Lanolin/Calamine/Znox 113 GM Tube 1 APPLIC TOPICAL ×2 (09:30→14:44)
--- NOTE | 2020-12-28 09:45 | CASEMGMT ---
LW/Healthcare POA both scanned into summary tab of echart. Pt's is listed is healthcare POA. PILLO Orta
--- NOTE | 2020-12-28 09:47 | PN.HOSP_ITS ---
Subjective Subjective Patient seen and examined. She had no active complaints today and felt well. Review of systems is otherwise negative. She is on low dose levophed still at 5mcg/min. She has a fever today with temp of 100.6F. wbc is 10.6. Her Hb has dropped to 7.5g/dl from 7.7 on admission. She is being transfused with one unit of pRBC. Objective Data Objective Data Vital Signs: Vital Signs Temp Pulse Resp BP Pulse Ox 100.6 F H 80 16 114/68 99 12/28/20 09:00 12/28/20 09:00 12/28/20 09:00 12/28/20 09:00 12/28/20 09:00 Oxygen Flow Rate (L/min) 2 Oxygen Delivery Method Nasal Cannula Weight: 135 lb 9.349 oz Body Mass Index (BMI) 21.9 Intake & Output: Intake and Output for Last 24 Hours 12/26/20 12/27/20 12/28/20 23:59 23:59 23:59 Intake Total 2049 559.38 / 559.38 Output Total 800 / 800 Balance 2049 -240.62 / -240.62 Lab / Micro Data Result Diagrams: 12/28/20 07:00 12/28/20 07:00 Labs: Laboratory Results - last 24 hr 12/27/20 17:15: WBC 9.5, RBC 3.27 L, Hgb 7.7 L, Hct 26.8 L, MCV 82.0, MCH 23.5 L , MCHC 28.7 L, RDW Std Deviation 51.0 H, RDW Coeff of Deborah 17.2 H, Plt Count 611 H, MPV 8.6, Immature Gran % (Auto) 0.500, Neut % (Auto) 84.1 H, Lymph % (Auto) 9.0 L, [place] % (Auto) 5.1, Eos % (Auto) 1.1, Baso % (Auto) 0.2, Absolute Neuts (auto) 8.0 H, Absolute Lymphs (auto) 0.86, Nucleated RBC % 0 12/27/20 17:15: Sodium 138, Potassium 4.1, Chloride 104, Carbon Dioxide 27.0, Anion Gap 7, BUN 10, Creatinine 0.48 L, Estim Creat Clear Calc 121.05, Est GFR (MDRD) Af Amer 171, Est GFR (MDRD) Non-Af 142, BUN/Creatinine Ratio 20.8 H, Glucose 94, Calcium 7.6 L, Total Bilirubin 0.30, AST 15, ALT 9 L, Alkaline Phosphatase 178 H, Total Protein 6.4, Albumin 1.7 L, Globulin 4.7 H, Albumin/Globulin Ratio 0.4 L 12/27/20 17:15: Lactic Acid 0.8 12/27/20 17:15: Phosphorus 2.3 L, Magnesium 2.3 12/27/20 18:30: PT 21.3 H, INR 1.9, APTT 48.3 H 12/27/20 18:50: Urine Color Yellow, Urine Clarity Cloudy, Urine pH 6.5, Ur Specific [place] 1.015, Urine Protein 100 H, Urine Glucose (UA) Normal, Urine Ketones Negative, Urine Occult Blood 250 H, Urine Nitrite Positive H, Urine Bilirubin Negative, Urine Urobilinogen 1 H, Ur Leukocyte Esterase 500 H, Urine RBC 0 SEEN, Urine WBC >100 SEEN, Ur Squamous Epith Cells 0 SEEN, Urine Bacteria 0 SEEN, Urine Mucus 0 SEEN 12/28/20 03:15: Troponin I High Sens 5 12/28/20 07:00: WBC 10.6, RBC 3.17 L, Hgb 7.5 L, Hct 26.4 L, MCV 83.3, MCH 23.7 L, MCHC 28.4 L, RDW Std Deviation 52.2 H, RDW Coeff of Deborah 17.1 H, Plt Count 649 H, MPV 8.8, Immature Gran % (Auto) 0.600, Neut % (Auto) 80.8 H, Lymph % (Auto) 9.0 L, [place] % (Auto) 6.3, Eos % (Auto) 3.0, Baso % (Auto) 0.3, Absolute Neuts (auto) 8.6 H, Absolute Lymphs (auto) 0.95, Nucleated RBC % 0 12/28/20 07:00: Sodium 142, Potassium 3.5, Chloride 112 H, Carbon Dioxide 23.0, Anion Gap 7, BUN 6 L, Creatinine 0.28 L, Estim Creat Clear Calc 207.52, Est GFR (MDRD) Af Amer 320, Est GFR (MDRD) Non-Af 265, BUN/Creatinine Ratio 21.5 H, Glucose 98, Calcium 6.7 L, Phosphorus 1.6 L, Magnesium 2.1, Total Bilirubin 0.30, AST 10 L, ALT 7 L, Alkaline Phosphatase 148 H, Total Protein 5.2 L, Albumin 1.3 L, Globulin 3.9, Albumin/Globulin Ratio 0.3 L, TSH 3.80 H 12/28/20 07:00: Blood Type Cancelled, A1 Antigen Typing Cancelled, Rho(D) Type Cancelled, Antibody Screen Cancelled 12/28/20 08:30: Blood Type A POSITIVE, Antibody Screen NEGATIVE Micro: Microbiology 12/27/20 17:00 Nasal Secretion SARS-CoV-2 Antigen (Rapid) - Final Radiography Diagnostic Testing: Radiology Impression Chest X-Ray 12/27/20 17:30 IMPRESSION: No acute radiographic abnormalities. Electronically Signed: Nnamdi Iverson MD at 18:09 EDT Tel , Service support , Physical Exam Const alert and no apparent distress Exam Limitations: no limitations HEENT head/scalp atraumatic and moist oral mucous membranes Head and Scalp: normocephalic Eyes PERRL, EOMs intact bilaterally and conjunctivae normal Neck no lymphadenopathy Resp normal respiratory effort, no retractions, no use of accessory muscles and clear to auscultation bilaterally Cardio regular rhythm, S1 normal heart sound, S2 normal heart sound and no murmurs GI normal to inspection, nondistended, normoactive bowel sounds, soft to palpation, non-tender and non-distended Extremity normal to inspection Peripheral Pulses: Yes pulses 2+ throughout Skin Skin Narrative: sacral decubitus ulcers, present on admission Neuro CN's II-XII intact bilaterally Sensorium / Orientation: awake and alert Psych affect normal Assessment & Plan Assessment/Plan (1) Septic shock: (2) Urinary tract infection: (3) Sepsis: PLAN: #Septic shock due to UTI * patient currently in ICU, on 5mcg/min of levophed * on IV ZOsyn * being hydrated with IVF * blood and urine cultures pending * critical care on board * ID consulted due to history of recurrent UTIs. * #Anemia * Hb today is 7.5, was 7.7 yesterday. * being transfused with one unit of PRBC * cause of anemia is not clear, as she has no clear signs of acute blood loss now * shes on eliquis, which is being held. * started on IV PPI * #Chronic sacral decubitus ulcers * present on admission. 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 eliquis currently on hol. # Charges/Coding Visit Charges Inpatient E&M: 79389 Subs Hosp L3
[2020-12-28] MEDS: DAKIN'S SOL HALF STRENGTH (=0.25%) 1 APPLIC TOPICAL (10:38)
--- NOTE | 2020-12-28 10:40 | CASEMGMT ---
SHERRON MADRIGAL Face to Face with patient for initial transition planning/care coordination assessment. RN CM introduced self and role at [facility]. Patient lying in bed, alert and oriented. Patient willing to participate in assessment and is able to answer all questions appropriately. Care providers, pharmacy, and demographics verified. Patient wishes to discharge home with resumption of HHC with [facility]. Patient states she has no further needs or concerns at this time. CM to follow for discharge planning needs that may arise. PCP: Jagruti Specialists: [employer]; Steffanie, oncologist [facility] Insurance: [employer] Prescription Benefit: yes Living Will/HPOA: yes, Lexii Dickson LNOK: Living Arrangements: Patient lives with in a single story home with no steps to enter. assists patient with care at home. Transportation: DME/HHC: Patient has shower chair, raised toilet, hospital bed, grab bars, wheelchair, and wound vac at home. Patient is active with [facility] for HHC. Disposition Plan: Patient to discharge home with HHC, family support, and follow-up plans in place. Maida GARCIA, RN, CM
--- NOTE | 2020-12-28 10:51 | WOUNDNOTE ---
wound photo: right thigh
--- NOTE | 2020-12-28 10:51 | WOUNDNOTE ---
wound photo: left thigh
--- NOTE | 2020-12-28 10:52 | WOUNDNOTE ---
wound photo: sacrum/left ischium
--- NOTE | 2020-12-28 10:53 | WOUNDNOTE ---
wound photo: left posterior knee
[2020-12-28] MEDS: busPIRone 5 MG Tablet 7.5 MG PO ×2 (10:54→22:36)
[2020-12-28] MEDS: 0.9% Normal Saline 1,000 ML 100 ML IV ×2 (10:58→20:30)
--- NOTE | 2020-12-28 15:05 | CON.PCM.ID_ITS ---
Assessment & Plan Assessment/Plan (1) Septic shock: PLAN: Ucx with 100k ecoli. Cont zosyn. BP improved, off levophed. decub ulcers have been improving, follows at wound center. Reviewed risks and benefits, encouraged her to get covid vaccine, she is not interested. Will follow, thank you (2) Urinary tract infection: (3) UTI (urinary tract infection) due to urinary indwelling Blount catheter: QUALIFIERS: Indwelling urinary catheter type: indwelling urethral catheter Encounter type: initial encounter Qualified Code(s): T83.511A - Infection and inflammatory reaction due to indwelling urethral catheter, initial encounter; N39.0 - Urinary tract infection, site not specified (4) Paraplegia following spinal cord injury: HPI Consult Data Date of Consult: 12/28/20 HPI Narrative HPI Narrative: SCOTTY REDMOND, is a 55 F with paraplegia, metastatic renal cell cancer, presented with several days fatigue, not feeling well. Has chronic catheter in place. Refuses covid vaccine. No fever. Mild abd pain. No cough or SOB. Was at infusion center, sent to ED, admitted to icu on levophed, zosyn. Feeling better. Full ROS performed and neg except as noted above. [facility] Medical History Acute renal failure KELLEE (acute kidney injury) Atelectasis of left lung Cancer Cardiology follow-up encounter Chronic pain syndrome Easy bruising Encephalopathy acute Excessive bleeding Fever Gastric reflux History of irregular heartbeat History of migraine History of non-ST elevation myocardial infarction (NSTEMI) (01/28/19) Immunocompromised state Indwelling urethral catheter present Low iron Malignant neoplasm of unspecified kidney, except renal pelvis Metastatic renal cell carcinoma to bone Non-ischemic cardiomyopathy Non-smoker Nonobstructive atherosclerosis of coronary artery Paralysis Paraplegia following spinal cord injury Post-menopausal Pressure sore of left ischium, stage 4 Pulmonary embolism Rheumatoid arthritis Right pulmonary embolus (01/28/19) Sacral decubitus ulcer, stage IV Sepsis Sepsis Septic shock (01/29/19) Single kidney Takotsubo syndrome Thyroid disease Uses wheelchair Home Medications temazepam 30 mg PO QHS 12/12/18 [History Last Taken 12/26/20] apixaban 5 mg PO BID 02/07/19 [History Last Taken 12/27/20] acyclovir 400 mg tablet 400 mg PO DAILY tab 08/19/19 [History Last Taken 12/27/20] furosemide 20 mg tablet 20 mg PO BID tab 08/19/19 [History Last Taken 12/27/20] methadone 5 mg tablet 10 mg PO QHS tab 08/19/19 [History Last Taken 12/26/20] oxycodone 10 mg tablet 10 mg PO TID PRN PRN 08/19/19 [History Last Taken 12/27/20] baclofen 5 mg tablet 7.5 mg PO BID tab 11/16/19 [History Last Taken 12/27/20] gabapentin 100 mg capsule 100 mg PO BID 11/16/19 [History Last Taken 12/27/20] gabapentin 300 mg capsule 300 mg PO QHS cap 11/16/19 [History Last Taken 1 ] calcium carbonate [Calcium 500] 500 mg PO DAILY 07/11/20 [History Last Taken 12/26/20 12:00] cholecalciferol (vitamin D3) 25 mcg PO DAILY 07/11/20 [History Last Taken 12/26/20 12:00] levothyroxine [Euthyrox] 75 mcg PO MOTUWETHFRSA 07/11/20 [History Last Taken 12/26/20] levothyroxine [Euthyrox] 150 mcg PO PLASCENCIA 07/11/20 [History Last Taken 12/23/20] melatonin 20 mg PO QHS 07/11/20 [History Last Taken 12/26/20] methadone 15 mg PO DAILY 07/11/20 [History Last Taken 12/27/20] methenamine hippurate 1 g PO BID 07/11/20 [History Last Taken 12/27/20] polyethylene glycol 3350 17 g PO QODAY 07/11/20 [History Last Taken 07/09/20] carvedilol [Coreg] 3.125 mg PO BID 09/13/20 [History Last Taken 12/27/20] potassium chloride 20 meq PO TID 12/27/20 [History Last Taken 12/27/20] Allergy/AdvReac Type Severity Reaction Status Date / Time ondansetron [From Zofran] AdvReac HEADACHE, Verified 12/27/20 15:39 SEVERE Family History Mother Lung cancer Father Lung cancer Surgical History (Updated 09/13/20 @ 11:52 by Alecia Zamora) History of cholecystectomy History of left heart catheterization (01/31/19) History of right nephrectomy (03/30/13) History of spinal surgery (2018) History of surgery History of vascular access device Social History (Updated 12/27/20 @ 20:[address] Marily Cagle MD) household members: spouse housing: house Smoking Status: Never smoker alcohol intake: never substance use type: does not use Physical Exam Const alert, oriented x3 and no apparent distress General Appearance: cooperative Exam Limitations: no limitations HEENT normocephalic and head/scalp atraumatic Eyes PERRL and EOMs intact bilaterally Neck supple and No nodes Resp normal air movement and clear to auscultation bilaterally Cardio regular rate and regular rhythm GI normal to inspection, nondistended, normoactive bowel sounds Extremity General Extremity: edema Skin Skin Narrative: reviewed photos Neuro CN's II-XII intact bilaterally Lab / Micro Data Result Diagrams: 12/28/20 07:00 12/28/20 07:00 Labs: Laboratory Results - last 24 hr 12/27/20 17:15: WBC 9.5, RBC 3.27 L, Hgb 7.7 L, Hct 26.8 L, MCV 82.0, MCH 23.5 L , MCHC 28.7 L, RDW Std Deviation 51.0 H, RDW Coeff of Deborah 17.2 H, Plt Count 611 H, MPV 8.6, Immature Gran % (Auto) 0.500, Neut % (Auto) 84.1 H, Lymph % (Auto) 9.0 L, [place] % (Auto) 5.1, Eos % (Auto) 1.1, Baso % (Auto) 0.2, Absolute Neuts (auto) 8.0 H, Absolute Lymphs (auto) 0.86, Nucleated RBC % 0 12/27/20 17:15: Sodium 138, Potassium 4.1, Chloride 104, Carbon Dioxide 27.0, Anion Gap 7, BUN 10, Creatinine 0.48 L, Estim Creat Clear Calc 121.05, Est GFR (MDRD) Af Amer 171, Est GFR (MDRD) Non-Af 142, BUN/Creatinine Ratio 20.8 H, Glucose 94, Calcium 7.6 L, Total Bilirubin 0.30, AST 15, ALT 9 L, Alkaline Phosphatase 178 H, Total Protein 6.4, Albumin 1.7 L, Globulin 4.7 H, Albumin/Globulin Ratio 0.4 L 12/27/20 17:15: Lactic Acid 0.8 12/27/20 17:15: Phosphorus 2.3 L, Magnesium 2.3 12/27/20 18:30: PT 21.3 H, INR 1.9, APTT 48.3 H 12/27/20 18:50: Urine Color Yellow, Urine Clarity Cloudy, Urine pH 6.5, Ur Specific [place] 1.015, Urine Protein 100 H, Urine Glucose (UA) Normal, Urine Ketones Negative, Urine Occult Blood 250 H, Urine Nitrite Positive H, Urine Bilirubin Negative, Urine Urobilinogen 1 H, Ur Leukocyte Esterase 500 H, Urine RBC 0 SEEN, Urine WBC >100 SEEN, Ur Squamous Epith Cells 0 SEEN, Urine Bacteria 0 SEEN, Urine Mucus 0 SEEN 12/28/20 03:15: Troponin I High Sens 5 12/28/20 07:00: WBC 10.6, RBC 3.17 L, Hgb 7.5 L, Hct 26.4 L, MCV 83.3, MCH 23.7 L, MCHC 28.4 L, RDW Std Deviation 52.2 H, RDW Coeff of Deborah 17.1 H, Plt Count 649 H, MPV 8.8, Immature Gran % (Auto) 0.600, Neut % (Auto) 80.8 H, Lymph % (Auto) 9.0 L, [place] % (Auto) 6.3, Eos % (Auto) 3.0, Baso % (Auto) 0.3, Absolute Neuts (auto) 8.6 H, Absolute Lymphs (auto) 0.95, Nucleated RBC % 0 12/28/20 07:00: Sodium 142, Potassium 3.5, Chloride 112 H, Carbon Dioxide 23.0, Anion Gap 7, BUN 6 L, Creatinine 0.28 L, Estim Creat Clear Calc 207.52, Est GFR (MDRD) Af Amer 320, Est GFR (MDRD) Non-Af 265, BUN/Creatinine Ratio 21.5 H, Glucose 98, Calcium 6.7 L, Phosphorus 1.6 L, Magnesium 2.1, Total Bilirubin 0.30, AST 10 L, ALT 7 L, Alkaline Phosphatase 148 H, Total Protein 5.2 L, Albumin 1.3 L, Globulin 3.9, Albumin/Globulin Ratio 0.3 L, TSH 3.80 H 12/28/20 07:00: Blood Type Cancelled, A1 Antigen Typing Cancelled, Rho(D) Type Cancelled, Antibody Screen Cancelled 12/28/20 08:20: Crossmatch See Detail 12/28/20 08:30: Blood Type A POSITIVE, Antibody Screen NEGATIVE Micro: Microbiology 12/27/20 18:50 Urine Catheter - Catheter Urine Culture - Preliminary Presumptive E. coli 12/27/20 17:00 Nasal Secretion SARS-CoV-2 Antigen (Rapid) - Final Radiology Impression Chest X-Ray 12/27/20 17:30 IMPRESSION: No acute radiographic abnormalities. Electronically Signed: Nnamdi Iverson MD at 18:09 EDT Tel , Service support ,
[2020-12-28] MEDS: Acetaminophen 325 MG Tablet 650 MG PO (17:13)
[2020-12-28] MEDS: Juven (unflavored) Packet 1 PACKET PO (17:15)
--- NOTE | 2020-12-28 19:00 | PCS.PANDOC ---
PANDEMIC DOCUMENTATION INITIATED: Date: 10/22/2020 Time: 190
--- NOTE | 2020-12-28 20:00 | NURSING ---
Levo at 3mcg/min, was restarted earlier per previous RN.
[2020-12-28] MEDS: Temazepam 15 MG Capsule 30 MG PO (21:39)
[2020-12-28] MEDS: Methadone 10 MG Tablet PO (21:39)
[2020-12-28] MEDS: Gabapentin 300 MG Capsule PO (21:39)
--- NOTE | 2020-12-28 21:47 | NURSING ---
Pt given half of evening meds, states feels a little nauseous and will take the rest later
[2020-12-28] MEDS: MELATONIN 10 MG TABLET 20 MG PO (22:37)
[2020-12-28] MEDS: proCHLORPERazine 10 MG/2 ML Vial 5 MG IV (22:47)
[2020-12-28] MEDS: 0.9% Saline Lock 10 ML Syringe IV (22:49)
[2020-12-29] VITALS (66 sets, daily range): BP systolic 79–127; BP diastolic 43–89; PULSE 70–98; RESP 11–23; TEMP 36.8–38.6; O2SAT 93–100
[2020-12-29 04:46] LABS: Absolute Lymphocyte Count 0.91 X10^3/uL (0.83-4.51); Basophil# 0.03 X10^3/uL; Basophil% 0.4 % (0-1); Eosinophil# 0.26 X10^3/uL; Eosinophils% 3.4 % (0-5); Hematocrit 27.3 % (37-47); Lymphocyte # 0.91 X10^3/ul (0.83-4.51); Lymphocyte % 11.9 % (19-41); Mean Corp Hgb Conc 29.3 g/dL (32-36); Mean Corpuscular Hgb 24.7 pg (27.0-32.0); Mean Corpuscular Volume 84.3 fL (81-99); Mean Platelet Vol. 8.5 fl (6.2-12.0); Monocyte# 0.38 X10^3/uL; NRBC Flagged by Analyzer 0 % (0-5); Neutrophil # 5.96 X10^3/uL (2.7-7.7); Neutrophil % 78.3 % (47-70); Platelet Count 508 K/mm3 (150-450); RBC Distribution Width CV 16.9 % (11.6-14.6); RBC Distribution Width SD 52.1 fl (35.1-43.9); Red Blood Count 3.24 M/mm3 (4.2-5.4); White Blood Count 7.6 K/mm3 (4.4-11.0)
[2020-12-29 05:10] LABS: Anion Gap 4 (5-15); BUN 8 mg/dL (7-18); BUN/Creat Ratio 33.6 RATIO (10-20); Calcium,Total 6.5 mg/dL (8.5-10.1); Chloride 116 mmol/L (98-107); Creatinine, Serum 0.24 mg/dL (0.55-1.02); EST Glomerular Filtration Rate 318 mL/min (>60); Est Glom Filt Rate - Afr Amer 385 mL/min (>60); Glucose 97 mg/dL (74-106); Potassium 4.1 mmol/L (3.5-5.1); Sodium Level 144 mmol/L (136-145)
--- NOTE | 2020-12-29 05:51 | PCM.PN.INT ---
Assessment & Plan Assessment/Plan (1) Septic shock: PLAN: RECOMMENDATIONS: 1. Continue Levophed. Titrate to a systolic blood pressure of 90 mmHg. 2. Continue to monitor H&H daily. Transfuse if hemoglobin is less than 7 g/dL. 3. Hold Eliquis given anemia. 4. Continue Protonix twice daily. 5. Continuous IV fluids can be discontinued from my perspective. IMPRESSIONS: 1. Septic shock secondary to E. coli cystitis The patient did require transfer to the ICU in the setting of fluid nonresponsive hypotension, requiring initiation of vasopressor support. The patient does report that she normally runs low at her baseline from a hemodynamic perspective. The patient is on appropriate antimicrobials for now. Given her history of polymicrobial infections in the past, infectious diseases is following. She will be continued on Levophed to maintain hemodynamic stability. The patient's home Lasix and Coreg remain on hold. 2. Anemia The patient presented to the hospital with a hemoglobin of 7.7 g/dL. Previously, the patient had a hemoglobin of 10.3 in September 2020. There are no overt signs of active blood loss at the current time. She was transfused 1 unit of packed red blood cells and her Eliquis was placed on hold. Hemoglobin is stable this morning. Continue to monitor H&H daily. Continue Protonix as ordered. 3. Chronic sacral wounds Continue local wound care. 4. Metastatic renal cell cancer to the bone secondary paraplegia/nonobstructive coronary disease/hyperlipidemia/hypothyroidism Complicates care, management, recovery and prognosis. Hold antihypertensives and diuretic. TIME: 31 minutes of critical care time, independent of procedures, was spent addressing the patient's septic shock, anemia, chronic sacral wounds, review of all data and collaboration with the care team. ([id number]) Subjective Subjective The patient was seen and examined at the bedside this morning. Events from the last 24 hours have been reviewed. The patient is currently afebrile, but remains on low-dose Levophed to maintain hemodynamic stability. The patient was transfused 1 unit of packed red blood cells yesterday. Hemoglobin this morning was noted to be 8.0. Creatinine is stable. The patient is anxious to be discharged home. She did report that her typical systolic blood pressures at her baseline are in the 80s and 90s. Therefore, I did place an order to titrate her Levophed to a systolic of 90 mmHg, in hopes of liberating her completely from vasopressor support. Objective Data Objective Data The patient's most recent lab work, culture data and imaging studies have all been personally reviewed. Surface echocardiogram from August 2020 revealed an ejection fraction of 50%. Urine culture is demonstrating presumptive E. coli. Vital Signs: Vital Signs Temp Pulse Resp BP Pulse Ox 98.7 F 75 17 100/63 98 12/29/20 05:00 12/29/20 05:15 12/29/20 05:00 12/29/20 05:15 12/29/20 05:00 Oxygen Flow Rate (L/min) 2 Oxygen Delivery Method Room Air Weight: 61.5 kg Body Mass Index (BMI) 21.9 Intake & Output: Intake and Output for Last 24 Hours 12/27/20 12/28/20 12/29/20 23:59 23:59 23:59 Intake Total 2049 507499.44 / 850097.34 661.50 / 661.50 Output Total 2300 / 2300 400 / 400 Balance 2049 616180.44 / 129165.34 261.50 / 261.50 Lab / Micro Data Attestation: I reviewed the patient's lab results. Result Diagrams: 12/29/20 04:40 12/29/20 04:40 Labs: Laboratory Results - last 24 hr 12/28/20 07:00: WBC 10.6, RBC 3.17 L, Hgb 7.5 L, Hct 26.4 L, MCV 83.3, MCH 23.7 L, MCHC 28.4 L, RDW Std Deviation 52.2 H, RDW Coeff of Deborah 17.1 H, Plt Count 649 H, MPV 8.8, Immature Gran % (Auto) 0.600, Neut % (Auto) 80.8 H, Lymph % (Auto) 9.0 L, [place] % (Auto) 6.3, Eos % (Auto) 3.0, Baso % (Auto) 0.3, Absolute Neuts (auto) 8.6 H, Absolute Lymphs (auto) 0.95, Nucleated RBC % 0 12/28/20 07:00: Sodium 142, Potassium 3.5, Chloride 112 H, Carbon Dioxide 23.0, Anion Gap 7, BUN 6 L, Creatinine 0.28 L, Estim Creat Clear Calc 207.52, Est GFR (MDRD) Af Amer 320, Est GFR (MDRD) Non-Af 265, BUN/Creatinine Ratio 21.5 H, Glucose 98, Calcium 6.7 L, Phosphorus 1.6 L, Magnesium 2.1, Total Bilirubin 0.30, AST 10 L, ALT 7 L, Alkaline Phosphatase 148 H, Total Protein 5.2 L, Albumin 1.3 L, Globulin 3.9, Albumin/Globulin Ratio 0.3 L, TSH 3.80 H 12/28/20 07:00: Blood Type Cancelled, A1 Antigen Typing Cancelled, Rho(D) Type Cancelled, Antibody Screen Cancelled 12/28/20 08:20: Crossmatch See Detail 12/28/20 08:30: Blood Type A POSITIVE, Antibody Screen NEGATIVE 12/29/20 04:40: WBC 7.6, RBC 3.24 L, Hgb 8.0 L, Hct 27.3 L, MCV 84.3, MCH 24.7 L, MCHC 29.3 L, RDW Std Deviation 52.1 H, RDW Coeff of Deborah 16.9 H, Plt Count 508 H, MPV 8.5, Immature Gran % (Auto) 1.000 H, Neut % (Auto) 78.3 H, Lymph % (Auto) 11.9 L, [place] % (Auto) 5.0, Eos % (Auto) 3.4, Baso % (Auto) 0.4, Absolute Neuts (auto) 6.0, Absolute Lymphs (auto) 0.91, Nucleated RBC % 0 12/29/20 04:40: Sodium 144, Potassium 4.1, Chloride 116 H, Carbon Dioxide 24.0, Anion Gap 4 L, BUN 8, Creatinine 0.24 L, Estim Creat Clear Calc 242.11, Est GFR (MDRD) Af Amer 385, Est GFR (MDRD) Non-Af 318, BUN/Creatinine Ratio 33.6 H, Glucose 97, Calcium 6.5 L* Micro: Microbiology 12/27/20 18:50 Urine Catheter - Catheter Urine Culture - Preliminary Presumptive E. coli 12/27/20 17:00 Nasal Secretion SARS-CoV-2 Antigen (Rapid) - Final Physical Exam Const alert, oriented x3 and no apparent distress General Appearance: cooperative HEENT normocephalic, head/scalp atraumatic and moist oral mucous membranes Eyes PERRL, EOMs intact bilaterally and conjunctivae normal Neck supple General: trachea midline Chest inspection of chest normal Resp normal respiratory effort Auscultation: Negative for rales, rhonchi or wheezes Cardio regular rate and regular rhythm GI normal to inspection, nondistended, normoactive bowel sounds Extremity no clubbing, cyanosis or edema Skin Wound Narrative: Chronic sacral wounds present. Neuro oriented x3 and CN's II-XII intact bilaterally Neuro Narrative: Chronic paraplegia Speech: speech normal Psych cooperative and affect normal Charges/Coding Procedures Hospitalists Procedures: 48140 Critial Care 1st Hr
[2020-12-29] MEDS: Levothyroxine 75 MCG Tablet PO (06:34)
[2020-12-29] MEDS: Potassium Chloride Oral Tablet 20 MEQ PO ×3 (06:34→21:38)
[2020-12-29] MEDS: 0.9% Normal Saline 1,000 ML 100 ML IV ×2 (08:43→19:04)
[2020-12-29] MEDS: TITRATION PARAMETER CHANGE 1 EACH IV (09:31)
[2020-12-29] MEDS: busPIRone 5 MG Tablet 7.5 MG PO (09:36)
[2020-12-29] MEDS: Menthol/Lanolin/Calamine/Znox 113 GM Tube 1 APPLIC TOPICAL ×4 (09:36→21:52)
[2020-12-29] MEDS: Gabapentin 100 MG Capsule PO (09:37)
[2020-12-29] MEDS: Acyclovir 200 MG Capsule 400 MG PO (09:37)
[2020-12-29] MEDS: Calcium (Elemental) 500 MG Tablet PO (09:37)
[2020-12-29] MEDS: DAKIN'S SOL HALF STRENGTH (=0.25%) 1 APPLIC TOPICAL (09:39)
[2020-12-29] MEDS: Methenamine Hippurate 1 GM Tablet PO ×2 (09:39→21:37)
--- NOTE | 2020-12-29 10:36 | PCM.PN.HOSP ---
Subjective Subjective Patient seen and examined. She has no complaints today. She was weaned off of Levophed this morning. She has a fever of 100.2 Fahrenheit this morning. Review of systems otherwise negative. Objective Data Objective Data Vital Signs: Vital Signs Temp Pulse Resp BP Pulse Ox 100.2 F H 90 15 106/65 98 12/29/20 10:00 12/29/20 10:00 12/29/20 10:00 12/29/20 10:00 12/29/20 10:00 Oxygen Flow Rate (L/min) 2 Oxygen Delivery Method Room Air Weight: 138 lb 7.205 oz Body Mass Index (BMI) 21.9 Intake & Output: Intake and Output for Last 24 Hours 12/27/20 12/28/20 12/29/20 23:59 23:59 23:59 Intake Total 2049 283073.44 / 760749.34 1335.06 / 1335.06 Output Total 2300 / 2300 600 / 600 Balance 2049 977216.44 / 797048.34 735.06 / 735.06 Lab / Micro Data Result Diagrams: 12/29/20 04:40 12/29/20 04:40 Labs: Laboratory Results - last 24 hr 12/28/20 08:20: Crossmatch See Detail 12/29/20 04:40: WBC 7.6, RBC 3.24 L, Hgb 8.0 L, Hct 27.3 L, MCV 84.3, MCH 24.7 L, MCHC 29.3 L, RDW Std Deviation 52.1 H, RDW Coeff of Deborah 16.9 H, Plt Count 508 H, MPV 8.5, Immature Gran % (Auto) 1.000 H, Neut % (Auto) 78.3 H, Lymph % (Auto) 11.9 L, [place] % (Auto) 5.0, Eos % (Auto) 3.4, Baso % (Auto) 0.4, Absolute Neuts (auto) 6.0, Absolute Lymphs (auto) 0.91, Nucleated RBC % 0 12/29/20 04:40: Sodium 144, Potassium 4.1, Chloride 116 H, Carbon Dioxide 24.0, Anion Gap 4 L, BUN 8, Creatinine 0.24 L, Estim Creat Clear Calc 242.11, Est GFR (MDRD) Af Amer 385, Est GFR (MDRD) Non-Af 318, BUN/Creatinine Ratio 33.6 H, Glucose 97, Calcium 6.5 L* Micro: Microbiology 12/27/20 18:50 Urine Catheter - Catheter Urine Culture - Final Presumptive E. coli 12/27/20 17:00 Nasal Secretion SARS-CoV-2 Antigen (Rapid) - Final Physical Exam Const alert, oriented x3 and no apparent distress Exam Limitations: no limitations HEENT head/scalp atraumatic and moist oral mucous membranes Head and Scalp: normocephalic Eyes PERRL, EOMs intact bilaterally and conjunctivae normal Neck no lymphadenopathy Resp normal respiratory effort, no retractions, no use of accessory muscles and clear to auscultation bilaterally Cardio regular rhythm, S1 normal heart sound, S2 normal heart sound and no murmurs GI normal to inspection, nondistended, normoactive bowel sounds, soft to palpation, non-tender and non-distended Extremity normal to inspection Skin Skin Narrative: sacral decubitus ulcers, present on admission, has chemotherapy port in place Neuro CN's II-XII intact bilaterally Sensorium / Orientation: awake and alert Psych affect normal Assessment & Plan Assessment/Plan (1) Septic shock: (2) Urinary tract infection: (3) Sepsis: PLAN: #Septic shock due to UTI weaned off levophed this morning on IV ZOsyn urine culutre growing presumptive E coli blood culture pending continue IV zosyn. critical care on board #Anemia Hb today is 8. Was transfused with one unit of pRBC on IV PPI eliquis on hld. #Chronic sacral decubitus ulcers present on admission. wound care on board #Renal cancer with metastases to the bone and resultant paraplegia follow up with oncology on outpatient basis #Hypertension; BP meds on hold o/a of septic shock #Hypothyroidism: on synthroid DVT prophylaxis: SCDs. eliquis currently on hold due to acute on chronic anemia # Charges/Coding Visit Charges Inpatient E&M: 43396 [facility] [[email or web address]] Hosp L3
--- NOTE | 2020-12-29 13:55 | NURSING ---
this RN switching connections of IVs to chest port. Placed levophed as first medication connected to chest port, followed by NS @ 100 and IVPB zosyn, patient became lightheaded and stated I don't feel well HR dropped to 40s, levophed stopped for short time, switched IV connections to NS @ 100 first, and then levophed and IVPB zosyn following, HR back up to 80s patient stated I am feeling much better.
[2020-12-29] MEDS: Acetaminophen 325 MG Tablet 650 MG PO (15:58)
[2020-12-29] MEDS: MELATONIN 10 MG TABLET 20 MG PO (21:38)
[2020-12-29] MEDS: Gabapentin 300 MG Capsule PO (21:38)
[2020-12-29] MEDS: Temazepam 15 MG Capsule 30 MG PO (23:37)
[2020-12-29] MEDS: Methadone 10 MG Tablet PO (23:37)
[2020-12-30] VITALS (46 sets, daily range): BP systolic 82–127; BP diastolic 44–91; PULSE 72–93; RESP 12–20; TEMP 37.2–37.9; O2SAT 93–99
[2020-12-30 04:34] LABS: Absolute Lymphocyte Count 1.19 X10^3/uL (0.83-4.51); Absolute Neutrophil Count 5.9 X10^3/uL (2.0-7.7); Basophil# 0.02 X10^3/uL; Basophil% 0.3 % (0-1); Eosinophil# 0.36 X10^3/uL; Eosinophils% 4.6 % (0-5); Hematocrit 26.6 % (37-47); Hemoglobin 7.8 g/dL (12.0-15.0); Lymphocyte # 1.19 X10^3/ul (0.83-4.51); Lymphocyte % 15.2 % (19-41); Mean Corp Hgb Conc 29.3 g/dL (32-36); Mean Corpuscular Hgb 24.8 pg (27.0-32.0); Mean Corpuscular Volume 84.7 fL (81-99); Mean Platelet Vol. 8.2 fl (6.2-12.0); Monocyte% 3.8 % (0-10); NRBC Flagged by Analyzer 0 % (0-5); Neutrophil # 5.91 X10^3/uL (2.7-7.7); Neutrophil % 75.2 % (47-70); Platelet Count 514 K/mm3 (150-450); RBC Distribution Width CV 17.5 % (11.6-14.6); RBC Distribution Width SD 54.5 fl (35.1-43.9); Red Blood Count 3.14 M/mm3 (4.2-5.4); White Blood Count 7.9 K/mm3 (4.4-11.0)
[2020-12-30 05:15] LABS: Anion Gap 7 (5-15); BUN 5 mg/dL (7-18); BUN/Creat Ratio 19.3 RATIO (10-20); Calcium,Total 6.5 mg/dL (8.5-10.1); Chloride 116 mmol/L (98-107); Creatinine, Serum 0.26 mg/dL (0.55-1.02); EST Glomerular Filtration Rate 288 mL/min (>60); Est Glom Filt Rate - Afr Amer 349 mL/min (>60); Estimated Creatinine Clearance 223.48 ml/min; Glucose 90 mg/dL (74-106); Sodium Level 144 mmol/L (136-145)
[2020-12-30] MEDS: 0.9% Normal Saline 1,000 ML 100 ML IV (05:38)
[2020-12-30] MEDS: Potassium Chloride Oral Tablet 20 MEQ PO ×3 (06:35→21:18)
[2020-12-30] MEDS: Levothyroxine 150 MCG Tablet PO (06:40)
--- NOTE | 2020-12-30 06:40 | PN.CC_ITS ---
Assessment & Plan Assessment/Plan (1) Septic shock: PLAN: RECOMMENDATIONS: 1. Continue Levophed. Titrate to a systolic blood pressure of 90 mmHg. 2. Continue to monitor H&H daily. Transfuse if hemoglobin is less than 7 g/dL. 3. Hold Eliquis given anemia. 4. Continue Protonix twice daily. 5. Continuous IV fluids can be discontinued from my perspective. 6. Continue antimicrobials as ordered. IMPRESSIONS: 1. Septic shock secondary to E. coli cystitis The patient did require transfer to the ICU in the setting of fluid nonresponsive hypotension, requiring initiation of vasopressor support. The patient does report that she normally runs low at her baseline from a hemodynamic perspective. The patient is on appropriate antimicrobials for now. Given her history of polymicrobial infections in the past, infectious diseases is following. She will be continued on Levophed to maintain hemodynamic stab ility. The patient's home Lasix and Coreg remain on hold. 2. Anemia The patient presented to the hospital with a hemoglobin of 7.7 g/dL. Previously, the patient had a hemoglobin of 10.3 in September 2020. There are no overt signs of active blood loss at the current time. She was transfused 1 unit of packed red blood cells and her Eliquis was placed on hold. Hemoglobin is stable this morning. Continue to monitor H&H daily. Continue Protonix as ordered. 3. Chronic sacral wounds Continue local wound care. 4. Metastatic renal cell cancer to the bone secondary paraplegia/nonobstructive coronary disease/hyperlipidemia/hypothyroidism Complicates care, management, recovery and prognosis. Hold antihypertensives an d diuretic. This note was generated with [employer] dictation software. It may contain incorrect words, spelling, and punctuation that were not noted in checking the note before signing. Subjective Subjective The patient was seen and examined at the bedside this morning. Events from the last 24 hours have been reviewed. The patient is currently afebrile, but remains on low-dose Levophed at 1 mcg/min to maintain hemodynamic stability. Hemoglobin is stable at 7.8 g/dL this morning. The patient's baseline systolic pressures run in the 80s and 90s. Objective Data Objective Data The patient's most recent lab work, culture data and imaging studies have all been personally reviewed. Surface echocardiogram from August 2020 revealed an ejection fraction of 50%. Urine culture was positive for pansensitive E. coli. Vital Signs: Vital Signs Temp Pulse Resp BP Pulse Ox 99.3 F H 76 12 89/57 L 97 12/30/20 05:00 12/30/20 06:00 12/30/20 05:45 12/30/20 06:00 12/30/20 06:00 Oxygen Flow Rate (L/min) 2 Oxygen Delivery Method Room Air Weight: 65.5 kg Body Mass Index (BMI) 21.9 Intake & Output: Intake and Output for Last 24 Hours 12/28/20 12/29/20 12/30/20 23:59 23:59 23:59 Intake Total 837044.44 / 145875.34 3244.57 / 3248.37 1175.67 / 1175.67 Output Total 2300 / 2300 1850 / 1850 100 / 100 Balance 917788.44 / 726729.34 1394.57 / 1398.37 1075.67 / 1075.67 Lab / Micro Data Attestation: I reviewed the patient's lab results. Result Diagrams: 12/30/20 04:25 12/30/20 04:25 Labs: Laboratory Results - last 24 hr 12/30/20 04:25: WBC 7.9, RBC 3.14 L, Hgb 7.8 L, Hct 26.6 L, MCV 84.7, MCH 24.8 L , MCHC 29.3 L, RDW Std Deviation 54.5 H, RDW Coeff of Deborah 17.5 H, Plt Count 514 H, MPV 8.2, Immature Gran % (Auto) 0.900, Neut % (Auto) 75.2 H, Lymph % (Auto) 15.2 L, [place] % (Auto) 3.8, Eos % (Auto) 4.6, Baso % (Auto) 0.3, Absolute Neuts (auto) 5.9, Absolute Lymphs (auto) 1.19, Nucleated RBC % 0 12/30/20 04:25: Sodium 144, Potassium 4.0, Chloride 116 H, Carbon Dioxide 21.0, Anion Gap 7, BUN 5 L, Creatinine 0.26 L, Estim Creat Clear Calc 223.48, Est GFR (MDRD) Af Amer 349, Est GFR (MDRD) Non-Af 288, BUN/Creatinine Ratio 19.3, Glucose 90, Calcium 6.5 L* Micro: Microbiology 12/27/20 18:50 Urine Catheter - Catheter Urine Culture - Final Presumptive E. coli 12/27/20 17:00 Nasal Secretion SARS-CoV-2 Antigen (Rapid) - Final Physical Exam Const alert, oriented x3 and no apparent distress General Appearance: cooperative HEENT normocephalic, head/scalp atraumatic and moist oral mucous membranes Eyes PERRL, EOMs intact bilaterally and conjunctivae normal Neck supple General: trachea midline Chest inspection of chest normal Resp normal respiratory effort Auscultation: Negative for rales, rhonchi or wheezes Cardio regular rate and regular rhythm GI normal to inspection, nondistended, normoactive bowel sounds Extremity no clubbing, cyanosis or edema Skin Wound Narrative: Chronic sacral wounds present. Neuro oriented x3 and CN's II-XII intact bilaterally Neuro Narrative: Chronic paraplegia Speech: speech normal Psych cooperative and affect normal Charges/Coding Visit Charges Inpatient E&M: 60087 Subs Hosp L3
[2020-12-30 07:49] LABS: Magnesium 1.8 mg/dL (1.6-2.6)
[2020-12-30] MEDS: Menthol/Lanolin/Calamine/Znox 113 GM Tube 1 APPLIC TOPICAL ×4 (08:55→21:15)
[2020-12-30] MEDS: Acyclovir 200 MG Capsule 400 MG PO (08:56)
[2020-12-30] MEDS: Gabapentin 100 MG Capsule PO (08:56)
[2020-12-30] MEDS: Methenamine Hippurate 1 GM Tablet PO ×2 (08:56→23:17)
[2020-12-30] MEDS: Calcium (Elemental) 500 MG Tablet PO (08:56)
[2020-12-30] MEDS: DAKIN'S SOL HALF STRENGTH (=0.25%) 1 APPLIC TOPICAL (08:57)
--- NOTE | 2020-12-30 11:28 | PN.HOSP_ITS ---
Subjective Subjective Patient seen and examined. She had no acute events overnight. She had no active complaints at time of review. She did have to be put back on her Levophed last night due to low blood pressure. She has a fever 100.1 Fahrenheit today. Review of systems otherwise negative. Objective Data Objective Data Vital Signs: Vital Signs Temp Pulse Resp BP Pulse Ox 100.1 F H 83 17 87/60 L 98 12/30/20 11:00 12/30/20 11:00 12/30/20 11:00 12/30/20 11:00 12/30/20 11:00 Oxygen Flow Rate (L/min) 2 Oxygen Delivery Method Room Air Weight: 144 lb 6.444 oz Body Mass Index (BMI) 21.9 Intake & Output: Intake and Output for Last 24 Hours 12/28/20 12/29/20 12/30/20 23:59 23:59 23:59 Intake Total 752700.44 / 777969.34 3244.57 / 3248.37 1710.20 / 1710.20 Output Total 2300 / 2300 1850 / 1850 100 / 100 Balance 371125.44 / 618840.34 1394.57 / 1398.37 1610.20 / 1610.20 Lab / Micro Data Result Diagrams: 12/30/20 04:25 12/30/20 04:25 Labs: Laboratory Results - last 24 hr 12/30/20 04:25: WBC 7.9, RBC 3.14 L, Hgb 7.8 L, Hct 26.6 L, MCV 84.7, MCH 24.8 L , MCHC 29.3 L, RDW Std Deviation 54.5 H, RDW Coeff of Deborah 17.5 H, Plt Count 514 H, MPV 8.2, Immature Gran % (Auto) 0.900, Neut % (Auto) 75.2 H, Lymph % (Auto) 15.2 L, [place] % (Auto) 3.8, Eos % (Auto) 4.6, Baso % (Auto) 0.3, Absolute Neuts (auto) 5.9, Absolute Lymphs (auto) 1.19, Nucleated RBC % 0 12/30/20 04:25: Sodium 144, Potassium 4.0, Chloride 116 H, Carbon Dioxide 21.0, Anion Gap 7, BUN 5 L, Creatinine 0.26 L, Estim Creat Clear Calc 223.48, Est GFR (MDRD) Af Amer 349, Est GFR (MDRD) Non-Af 288, BUN/Creatinine Ratio 19.3, Glucose 90, Calcium 6.5 L* 12/30/20 04:25: Magnesium 1.8 Micro: Microbiology 12/27/20 17:15 Blood Culture (Wb) - Port Blood Culture - Preliminary No growth in 48 hours. 12/27/20 16:20 Blood Culture (Wb) - Right Wrist Blood Culture - Preliminary No growth in 48 hours. 12/27/20 18:50 Urine Catheter - Catheter Urine Culture - Final Presumptive E. coli 12/27/20 17:00 Nasal Secretion SARS-CoV-2 Antigen (Rapid) - Final Physical Exam Const alert, oriented x3 and no apparent distress Exam Limitations: no limitations HEENT head/scalp atraumatic and moist oral mucous membranes Head and Scalp: normocephalic Eyes PERRL, EOMs intact bilaterally and conjunctivae normal Neck no lymphadenopathy Resp normal respiratory effort, no retractions, no use of accessory muscles and clear to auscultation bilaterally Cardio regular rhythm, S1 normal heart sound, S2 normal heart sound and no murmurs GI normal to inspection, nondistended, normoactive bowel sounds, soft to palpation, non-tender and non-distended Extremity normal to inspection Peripheral Pulses: Yes pulses 2+ throughout Skin Skin Narrative: sacral decubitus ulcers, present on admission, has chemotherapy port in place Neuro CN's II-XII intact bilaterally Sensorium / Orientation: awake and alert Psych affect normal Assessment & Plan Assessment/Plan (1) Septic shock: (2) Urinary tract infection: (3) Sepsis: PLAN: #Septic shock due to UTI * had to be put back on levophed overnight * on IV ZOsyn * urine culutre growing presumptive E coli * blood cultures negative after 48 hours * continue IV zosyn. * critical care on board * titrate levophed to maintain MAP >65 * #Anemia * Hb today is 7.8. Was transfused with one unit of pRBC * on IV PPI * eliquis on hold. * * #Chronic sacral decubitus ulcers * present on admission. 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 eliquis currently on hold due to acute on chronic anemia # Charges/Coding Visit Charges Inpatient E&M: 69186 Subs Hosp L3
[2020-12-30] MEDS: 0.9% Saline Lock 10 ML Syringe IV (21:19)
[2020-12-30] MEDS: MELATONIN 10 MG TABLET 20 MG PO (21:37)
[2020-12-30] MEDS: Methadone 10 MG Tablet PO (21:37)
[2020-12-30] MEDS: Gabapentin 300 MG Capsule PO (21:37)
[2020-12-30] MEDS: Temazepam 15 MG Capsule 30 MG PO (23:17)
[2020-12-31] VITALS (18 sets, daily range): BP systolic 83–110; BP diastolic 50–88; PULSE 69–92; RESP 11–19; TEMP 36.9–37.8; O2SAT 96–99
[2020-12-31] MEDS: oxyCODONE 5 MG Tablet 10 MG PO (01:08)
[2020-12-31 04:58] LABS: Absolute Lymphocyte Count 1.13 X10^3/uL (0.83-4.51); Absolute Neutrophil Count 3.9 X10^3/uL (2.0-7.7); Basophil# 0.02 X10^3/uL; Basophil% 0.4 % (0-1); Eosinophil# 0.26 X10^3/uL; Eosinophils% 4.6 % (0-5); Hemoglobin 7.6 g/dL (12.0-15.0); Lymphocyte # 1.13 X10^3/ul (0.83-4.51); Lymphocyte % 19.9 % (19-41); Mean Corp Hgb Conc 29.2 g/dL (32-36); Mean Corpuscular Hgb 24.8 pg (27.0-32.0); Mean Platelet Vol. 8.4 fl (6.2-12.0); Monocyte# 0.29 X10^3/uL; Monocyte% 5.1 % (0-10); NRBC Flagged by Analyzer 0 % (0-5); Neutrophil # 3.93 X10^3/uL (2.7-7.7); Neutrophil % 69.1 % (47-70); Platelet Count 502 K/mm3 (150-450); RBC Distribution Width CV 18.3 % (11.6-14.6); Red Blood Count 3.06 M/mm3 (4.2-5.4); White Blood Count 5.7 K/mm3 (4.4-11.0)
[2020-12-31] MEDS: Potassium Chloride Oral Tablet 20 MEQ PO ×3 (05:00→21:08)
[2020-12-31] MEDS: Levothyroxine 75 MCG Tablet PO (05:00)
[2020-12-31 05:10] LABS: Anion Gap 5 (5-15); BUN 4 mg/dL (7-18); BUN/Creat Ratio 12.3 RATIO (10-20); Calcium,Total 7.2 mg/dL (8.5-10.1); Chloride 115 mmol/L (98-107); Creatinine, Serum 0.32 mg/dL (0.55-1.02); EST Glomerular Filtration Rate 223 mL/min (>60); Est Glom Filt Rate - Afr Amer 270 mL/min (>60); Estimated Creatinine Clearance 181.58 ml/min; Glucose 74 mg/dL (74-106); Potassium 4.3 mmol/L (3.5-5.1); Sodium Level 142 mmol/L (136-145)
--- NOTE | 2020-12-31 06:55 | PN.CC_ITS ---
Assessment & Plan Assessment/Plan (1) Septic shock: PLAN: RECOMMENDATIONS: 1. Hold baseline antihypertensives for an additional 24 hours 2. Continue to monitor H&H daily. Transfuse if hemoglobin is less than 7 g/dL. 3. Hold Eliquis given anemia. 4. Continue Protonix twice daily. 5. Increase activity as tolerated. Continue antimicrobials 6. Okay to leave the intensive care unit 7. Patient hemodynamically stable on room air. Will sign off from a critical care perspective IMPRESSIONS: 1. Septic shock secondary to E. coli cystitis The patient did require transfer to the ICU in the setting of fluid nonresponsive hypotension, requiring initiation of vasopressor support. The patient does report that she normally runs low at her baseline from a hemodynamic perspective. The patient is on appropriate antimicrobials for now. Infectious disease continues to follow. Patient has been off of Levophed for almost 24 hours. Okay to leave the intensive care unit from my perspective. Given hemodynamic stability on room air. Will sign off from a critical care perspective 2. Anemia The patient presented to the hospital with a hemoglobin of 7.7 g/dL. Previously, the patient had a hemoglobin of 10.3 in September 2020. There are no overt signs of active blood loss at the current time. She was transfused 1 unit of packed red blood cells and her Eliquis was placed on hold. Hemoglobin is stable this morning. Continue to monitor H&H daily. Continue Protonix as ordered. Likely okay to reinitiate Eliquis with daily H&H's 3. Chronic sacral wounds Continue local wound care. 4. Metastatic renal cell cancer to the bone secondary para plegia/nonobstructive coronary disease/hyperlipidemia/hypothyroidism Complicates care, management, recovery and prognosis. Hold antihypertensives and diuretic. This note was generated with [employer] dictation software. It may contain incorrect words, spelling, and punctuation that were not noted in checking the note before signing. Subjective Subjective Patient did well overnight. No acute issues were reported. Patient reports that her symptoms have resolved. Patient has been off Levophed since 2 PM yesterday. Patient does have a history of a chronic Blount and decubitus ulcers, but has home health care. Objective Data Objective Data Vital Signs: Vital Signs Temp Pulse Resp BP Pulse Ox 37.3 C 88 19 H 89/62 L 96 12/31/20 04:00 12/31/20 06:00 12/31/20 06:00 12/31/20 06:00 12/31/20 06:00 Oxygen Flow Rate (L/min) 2 Oxygen Delivery Method Room Air Weight: 65 kg Body Mass Index (BMI) 21.9 Intake & Output: Intake and Output for Last 24 Hours 12/29/20 12/30/20 12/31/20 23:59 23:59 23:59 Intake Total 3244.57 / 3248.37 2215.92 / 2215.92 105.25 / 105.25 Output Total 1850 / 1850 1250 / 1650 400 / 400 Balance 1394.57 / 1398.37 965.92 / 565.92 -294.75 / -294.75 Lab / Micro Data Result Diagrams: 12/31/20 04:27 12/31/20 04:27 Labs: Laboratory Results - last 24 hr 12/30/20 04:25: Magnesium 1.8 12/31/20 04:27: WBC 5.7, RBC 3.06 L, Hgb 7.6 L, Hct 26.0 L, MCV 85.0, MCH 24.8 L , MCHC 29.2 L, RDW Std Deviation 56.0 H, RDW Coeff of Deborah 18.3 H, Plt Count 502 H, MPV 8.4, Immature Gran % (Auto) 0.900, Neut % (Auto) 69.1, Lymph % (Auto) 19.9, [place] % (Auto) 5.1, Eos % (Auto) 4.6, Baso % (Auto) 0.4, Absolute Neuts (auto) 3.9, Absolute Lymphs (auto) 1.13, Nucleated RBC % 0 12/31/20 04:27: Sodium 142, Potassium 4.3, Chloride 115 H, Carbon Dioxide 22.0, Anion Gap 5, BUN 4 L, Creatinine 0.32 L, Estim Creat Clear Calc 181.58, Est GFR (MDRD) Af Amer 270, Est GFR (MDRD) Non-Af 223, BUN/Creatinine Ratio 12.3, Glucose 74, Calcium 7.2 L Micro: Microbiology 12/27/20 17:15 Blood Culture (Wb) - Port Blood Culture - Preliminary No growth in 48 hours. 12/27/20 16:20 Blood Culture (Wb) - Right Wrist Blood Culture - Preliminary No growth in 48 hours. 12/27/20 18:50 Urine Catheter - Catheter Urine Culture - Final Presumptive E. coli 12/27/20 17:00 Nasal Secretion SARS-CoV-2 Antigen (Rapid) - Final Physical Exam Const alert, oriented x3 and no apparent distress General Appearance: cooperative HEENT normocephalic, head/scalp atraumatic and moist oral mucous membranes Eyes PERRL, EOMs intact bilaterally and conjunctivae normal Neck supple General: trachea midline Chest inspection of chest normal Resp normal respiratory effort Auscultation: Negative for rales, rhonchi or wheezes Cardio regular rate and regular rhythm GI normal to inspection, nondistended, normoactive bowel sounds Extremity no clubbing, cyanosis or edema Skin Wound Narrative: Chronic sacral wounds present, but not personally staged. Neuro oriented x3 and CN's II-XII intact bilaterally Neuro Narrative: Chronic paraplegia Speech: speech normal Psych cooperative and affect normal Charges/Coding Visit Charges Inpatient E&M: 58766 Subs Hosp L3
[2020-12-31] MEDS: Gabapentin 100 MG Capsule PO ×2 (08:06→14:21)
[2020-12-31] MEDS: busPIRone 5 MG Tablet 7.5 MG PO (08:07)
[2020-12-31] MEDS: Menthol/Lanolin/Calamine/Znox 113 GM Tube 1 APPLIC TOPICAL (08:08)
[2020-12-31] MEDS: Calcium (Elemental) 500 MG Tablet PO (08:09)
[2020-12-31] MEDS: Acyclovir 200 MG Capsule 400 MG PO (08:10)
--- NOTE | 2020-12-31 10:38 | PN.HOSP_ITS ---
Subjective Subjective Patient seen and summoned. She feels well and had no complaints. She still has a low-grade fever. She was weaned off of BiPAP yesterday and has remained off of it. Her blood pressures running in the 80s systolic. Patient states she does have a history of low blood pressure with systolic blood pressure usually running in the high 80s to 90s. Review of symptoms otherwise negative. Hemoglobin is 7.6 today. Objective Data Objective Data Vital Signs: Vital Signs Temp Pulse Resp BP Pulse Ox 99.2 F H 88 11 L 96/62 97 12/31/20 07:00 12/31/20 08:00 12/31/20 07:00 12/31/20 07:00 12/31/20 07:00 Oxygen Flow Rate (L/min) 2 Oxygen Delivery Method Room Air Weight: 143 lb 4.807 oz Body Mass Index (BMI) 21.9 Intake & Output: Intake and Output for Last 24 Hours 12/29/20 12/30/20 12/31/20 23:59 23:59 23:59 Intake Total 3244.57 / 3248.37 2215.92 / 2215.92 585.25 / 585.25 Output Total 1850 / 1850 1250 / 1650 1050 / 1050 Balance 1394.57 / 1398.37 965.92 / 565.92 -464.75 / -464.75 Lab / Micro Data Result Diagrams: 12/31/20 04:27 12/31/20 04:27 Labs: Laboratory Results - last 24 hr 12/31/20 04:27: WBC 5.7, RBC 3.06 L, Hgb 7.6 L, Hct 26.0 L, MCV 85.0, MCH 24.8 L , MCHC 29.2 L, RDW Std Deviation 56.0 H, RDW Coeff of Deborah 18.3 H, Plt Count 502 H, MPV 8.4, Immature Gran % (Auto) 0.900, Neut % (Auto) 69.1, Lymph % (Auto) 19.9, [place] % (Auto) 5.1, Eos % (Auto) 4.6, Baso % (Auto) 0.4, Absolute Neuts (auto) 3.9, Absolute Lymphs (auto) 1.13, Nucleated RBC % 0 12/31/20 04:27: Sodium 142, Potassium 4.3, Chloride 115 H, Carbon Dioxide 22.0, Anion Gap 5, BUN 4 L, Creatinine 0.32 L, Estim Creat Clear Calc 181.58, Est GFR (MDRD) Af Amer 270, Est GFR (MDRD) Non-Af 223, BUN/Creatinine Ratio 12.3, Glucose 74, Calcium 7.2 L Micro: Microbiology 12/27/20 17:15 Blood Culture (Wb) - Port Blood Culture - Preliminary No growth in 48 hours. 12/27/20 16:20 Blood Culture (Wb) - Right Wrist Blood Culture - Preliminary No growth in 48 hours. 12/27/20 18:50 Urine Catheter - Catheter Urine Culture - Final Presumptive E. coli 12/27/20 17:00 Nasal Secretion SARS-CoV-2 Antigen (Rapid) - Final Physical Exam Const alert, oriented x3 and no apparent distress Exam Limitations: no limitations HEENT head/scalp atraumatic and moist oral mucous membranes Head and Scalp: normocephalic Eyes PERRL, EOMs intact bilaterally and conjunctivae normal Neck no lymphadenopathy Resp normal respiratory effort, no retractions, no use of accessory muscles and clear to auscultation bilaterally Cardio regular rate, regular rhythm, S1 normal heart sound, S2 normal heart sound and no murmurs GI normal to inspection, nondistended, normoactive bowel sounds, soft to palpation, non-tender and non-distended Extremity normal to inspection Skin Skin Narrative: sacral decubitus ulcers, present on admission, wound vac in place. has chemotherapy port in place Neuro CN's II-XII intact bilaterally Sensorium / Orientation: awake and alert Psych affect normal Assessment & Plan Assessment/Plan (1) Septic shock: (2) Urinary tract infection: (3) Sepsis: PLAN: #Septic shock due to UTI * weaned off levophed. * on IV ZOsyn * urine culture growing presumptive E coli * blood cultures negative after 48 hours * continue IV zosyn. * critical care on board. ID also consulted. * #Anemia * Hb today is 7.6. Was transfused with one unit of pRBC * on IV PPI * eliquis on hold. * transfuse if Hb <7 * #Chronic sacral decubitus ulcers * present on admission. 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 eliquis currently on hold due to acute on chronic anemia Disposition: transfer out of ICU to PCU today Charges/Coding Visit Charges Inpatient E&M: 43865 Subs Hosp L2
--- NOTE | 2020-12-31 10:52 | NURSING ---
report called to [facility] for transfer to room 127, transferred per bed with belongings pt informed of room #
--- NOTE | 2020-12-31 11:15 | WOUNDNOTE ---
wound photo: bilateral thighs
--- NOTE | 2020-12-31 11:16 | WOUNDNOTE ---
wound photo: sacrum/left ischium
--- NOTE | 2020-12-31 11:16 | WOUNDNOTE ---
wound photo: left posterior knee
[2020-12-31] MEDS: DAKIN'S SOL HALF STRENGTH (=0.25%) 1 APPLIC TOPICAL (13:07)
[2020-12-31] MEDS: Cefazolin 2 GM in 0.9% Normal Saline 100 ML IV ×2 (13:09→21:05)
[2020-12-31] MEDS: Methenamine Hippurate 1 GM Tablet PO ×2 (14:20→21:08)
--- NOTE | 2020-12-31 16:39 | PN.ID_ITS ---
Physical Exam Narrative Feeling better, no fever Const alert and no apparent distress General Appearance: cooperative Resp normal air movement and clear to auscultation bilaterally Cardio regular rate and regular rhythm GI normal to inspection, nondistended, normoactive bowel sounds Skin no rashes or lesions noted ID ID: Route of nutrition/ use of supplements: [] Nutritional Intake: [] IV Site: [] Blount Catheter: [] Assessment & Plan Assessment/Plan (1) Septic shock: PLAN: Ucx with 100k ecoli. Off levophed, out of icu. Narrow abx to ce fazolin. Ok for home with po amoxicillin for 4 more days, 875mg bid. decub ulcers have been improving, follows at wound center. Reviewed risks and benefits, encouraged her to get covid vaccine, she is not interested. Will follow as needed (2) Urinary tract infection: (3) UTI (urinary tract infection) due to urinary indwelling Blount catheter: QUALIFIERS: Indwelling urinary catheter type: indwelling urethral catheter Encounter type: initial encounter Qualified Code(s): T83.511A - Infection and inflammatory reaction due to indwelling urethral catheter, initial encounter; N39.0 - Urinary tract infection, site not specified (4) Paraplegia following spinal cord injury:
[2020-12-31] MEDS: 0.9% Saline Lock 10 ML Syringe IV (21:05)
[2020-12-31] MEDS: Methadone 10 MG Tablet PO (21:05)
[2020-12-31] MEDS: Gabapentin 300 MG Capsule PO (21:08)
[2020-12-31] MEDS: MELATONIN 10 MG TABLET 20 MG PO (21:08)
[2020-12-31] MEDS: Temazepam 15 MG Capsule 30 MG PO (22:47)
[2021-01-01] VITALS (7 sets, daily range): BP systolic 100–104; BP diastolic 65–76; PULSE 63–109; RESP 16–18; TEMP 37.2–37.4; O2SAT 94–100
[2021-01-01] MEDS: oxyCODONE 5 MG Tablet 10 MG PO (01:26)
[2021-01-01] MEDS: Potassium Chloride Oral Tablet 20 MEQ PO (05:06)
[2021-01-01] MEDS: Levothyroxine 75 MCG Tablet PO (05:06)
[2021-01-01] MEDS: Cefazolin 2 GM in 0.9% Normal Saline 100 ML IV (05:06)
[2021-01-01 07:27] LABS: Absolute Lymphocyte Count 1.15 X10^3/uL (0.83-4.51); Absolute Neutrophil Count 3.9 X10^3/uL (2.0-7.7); Basophil# 0.02 X10^3/uL; Basophil% 0.4 % (0-1); Eosinophil# 0.28 X10^3/uL; Eosinophils% 4.9 % (0-5); Hemoglobin 7.6 g/dL (12.0-15.0); Lymphocyte # 1.15 X10^3/ul (0.83-4.51); Lymphocyte % 20.2 % (19-41); Mean Corp Hgb Conc 29.2 g/dL (32-36); Mean Corpuscular Hgb 24.4 pg (27.0-32.0); Mean Corpuscular Volume 83.3 fL (81-99); Mean Platelet Vol. 8.6 fl (6.2-12.0); Monocyte# 0.32 X10^3/uL; Monocyte% 5.6 % (0-10); NRBC Flagged by Analyzer 0 % (0-5); Neutrophil # 3.85 X10^3/uL (2.7-7.7); Neutrophil % 67.7 % (47-70); Platelet Count 511 K/mm3 (150-450); RBC Distribution Width CV 18.6 % (11.6-14.6); RBC Distribution Width SD 56.8 fl (35.1-43.9); Red Blood Count 3.12 M/mm3 (4.2-5.4); White Blood Count 5.7 K/mm3 (4.4-11.0)
[2021-01-01 07:49] LABS: Anion Gap 6 (5-15); BUN 4 mg/dL (7-18); BUN/Creat Ratio 9.8 RATIO (10-20); Calcium,Total 7.6 mg/dL (8.5-10.1); Chloride 113 mmol/L (98-107); Creatinine, Serum 0.41 mg/dL (0.55-1.02); EST Glomerular Filtration Rate 170 mL/min (>60); Est Glom Filt Rate - Afr Amer 206 mL/min (>60); Estimated Creatinine Clearance 141.72 ml/min; Glucose 90 mg/dL (74-106); Potassium 4.4 mmol/L (3.5-5.1); Sodium Level 143 mmol/L (136-145)
[2021-01-01] MEDS: Gabapentin 100 MG Capsule PO (10:06)
[2021-01-01] MEDS: Methenamine Hippurate 1 GM Tablet PO (10:07)
[2021-01-01] MEDS: DAKIN'S SOL HALF STRENGTH (=0.25%) 1 APPLIC TOPICAL (10:08)
[2021-01-01] MEDS: Calcium (Elemental) 500 MG Tablet PO (10:08)
[2021-01-01] MEDS: Acyclovir 200 MG Capsule 400 MG PO (10:09)
--- NOTE | 2021-01-01 11:31 | DCINST_ITS ---
Discharge Instructions Diet Discharge Diet: No restrictions Activity Discharge Activity: - (return to previous activity) Follow Up Care Test Results: Test results from this visit will be discussed in further detail a t your follow-up appointment, if applicable. Discharge Plan Admission Admit Date/Time: 12/27/20 19:57 Primary Reason for Your Visit: septic shock Attending Provider: Gino Bianchi Primary Care Provider: Aaron Chand Consulting Providers: Jason Tyson ; Gurdeep Killian Discharge Orders/Prescriptions Prescriptions: New HySept 0.25 % Solution 1 applic topical DAILY Qty: 0 RF: 0 amoxicillin 875 mg tablet 875 mg PO BID Qty: 9 RF: 0 Continued acyclovir 400 mg tablet 400 mg PO DAILY RF: 0 methadone 5 mg tablet 10 mg PO QHS RF: 0 oxycodone 10 mg tablet 10 mg PO TID PRN PRN (Reason: Pain) RF: 0 gabapentin 100 mg capsule 100 mg PO BID RF: 0 baclofen 5 mg tablet 7.5 mg PO BID RF: 0 temazepam 30 MG capsule 30 mg PO QHS RF: 0 furosemide 20 mg tablet 20 mg PO BID RF: 0 gabapentin 300 mg capsule 300 mg PO QHS RF: 0 apixaban 5 MG tablet 5 mg PO BID RF: 0 levothyroxine [Euthyrox] 75 mcg tablet 75 mcg PO MOTUWETHFRSA RF: 0 levothyroxine [Euthyrox] 75 mcg tablet 150 mcg PO PLASCENCIA RF: 0 methenamine hippurate 1 gram tablet 1 g PO BID RF: 0 calcium carbonate [Calcium 500] 500 mg calcium (1,250 mg) Tablet 500 mg PO DAILY RF: 0 polyethylene glycol 3350 17 gram/dose Powder 17 g PO QODAY RF: 0 methadone 5 mg tablet 15 mg PO DAILY RF: 0 cholecalciferol (vitamin D3) 25 mcg (1,000 unit) Capsule 25 mcg PO DAILY RF: 0 melatonin 10 mg Tablet 20 mg PO QHS RF: 0 carvedilol [Coreg] 3.125 mg tablet 3.125 mg PO BID RF: 0 potassium chloride 20 mEq tablet extended release 20 meq PO TID RF: 0 Referrals / Follow Up: Aaron Chand MD [Primary Care Provider] - Within 2 Weeks Disposition Disposition (needs filled in before D/C Order can be placed): Home Health Service
[2021-01-01] MEDS: 0.9% Saline Lock 10 ML Syringe IV (12:49)
--- NOTE | 2021-01-01 13:18 | NURSING ---
Chest port deaccessed, pt tolerated well.
--- NOTE | 2021-01-01 13:21 | CASEMGMT ---
This RN CM to room and pt states no concerns with going home at time of discharge. Pt is agreeable to [facility] for [facility] and clinicals faxed. Pt voices no further questions/concerns/needs. SStaten SHERRON CM
--- NOTE | 2021-01-01 20:04 | PCM.DC.SUM ---
Providers Date of Admission: 12/27/20 Date of Discharge: 01/01/21 Primary Care Physician: Dr. Aaron Chand MD Consultations 12/27/20 20:46 Consult: Onc/Wound/international marketing specialist Routine Comment: 12/28/20 01:57 Consult: Cad Administrator / Pulmonary Medicine Routine Consulting Provider: Gurdeep Killian Reason for Consult: Admitted with UTI, low BP baseline but worse EMERGENT Consult: No MD Notified: Yes Date Notified: 12/28/20 Time Notified: 01:08 Method of Notification: cortext 12/28/20 06:48 Consult: Infectious Disease Routine Consulting Provider: Jason Tyson Reason for Consult: Septic Shock w/ h/o polymicrobial infections EMERGENT Consult: No MD Notified: Yes Date Notified: 12/28/20 Time Notified: 08:32 Method of Notification: Answering Service Reason For Visit: ACUTE UTI, COMPLICATED Diagnosis Discharge Diagnosis (1) Septic shock: Status: Acute Code(s): A41.9 - Sepsis, unspecified organism; R65.21 - Severe sepsis with septic shock (2) Urinary tract infection: Status: Acute Code(s): N39.0 - Urinary tract infection, site not specified (3) UTI (urinary tract infection) due to urinary indwelling Blount catheter: Status: Chronic Code(s): T83.511A - Infection and inflammatory reaction due to indwelling urethral catheter, initial encounter; N39.0 - Urinary tract infection, site not specified Qualifiers: Encounter type: initial encounter Indwelling urinary catheter type: indwelling urethral catheter Qualified Code(s): T83.511A - Infection and inflammatory reaction due to indwelling urethral catheter, initial encounter; N39.0 - Urinary tract infection, site not specified (4) 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 coli associated with chronic indwelling urethral catheter #2 urinary tract infection with E. 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 #5 stage IV decubitus ulcer sacral area and left ischial pressure sore stage IV Medications at Discharge Home Medications temazepam 30 mg PO QHS 12/12/18 apixaban 5 mg PO BID 12/02/19 acyclovir 400 mg tablet 400 mg PO DAILY tab 08/19/19 furosemide 20 mg tablet 20 mg PO BID tab 08/19/19 methadone 5 mg tablet 10 mg PO QHS tab 08/19/19 oxycodone 10 mg tablet 10 mg PO TID PRN PRN 08/19/19 baclofen 5 mg tablet 7.5 mg PO BID tab 11/16/19 gabapentin 100 mg capsule 100 mg PO BID 11/16/19 gabapentin 300 mg capsule 300 mg PO QHS cap 11/16/19 calcium carbonate [Calcium 500] 500 mg PO DAILY 07/11/20 cholecalciferol (vitamin D3) 25 mcg PO DAILY 07/11/20 levothyroxine [Euthyrox] 75 mcg PO MOTUWETHFRSA 07/11/20 levothyroxine [Euthyrox] 150 mcg PO PLASCENCIA 07/11/20 melatonin 20 mg PO QHS 07/11/20 methadone 15 mg PO DAILY 07/11/20 methenamine hippurate 1 g PO BID 07/11/20 polyethylene glycol 3350 17 g PO QODAY 07/11/20 carvedilol [Coreg] 3.125 mg PO BID 09/13/20 potassium chloride 20 meq PO TID 12/27/20 amoxicillin 875 mg PO BID #9 tab 01/01/21 sodium hypochlorite [HySept] 1 applic TOPICAL DAILY #0 ml 01/01/21 Hospital Course Operations None Procedures None Summary of Care Provided Hospital Course: This 55-year-old black female was seen in the emergency room at [facility] after being sent in by her oncologist due to history of cloudy foul-smelling urine with nausea, emesis, chills, and increased weakness along with a temperature of 102 as an outpatient. Patient has a chronic Blount catheter due to spinal injury. Work-up in the emergency room noted that the patient's temperature to be 100.8, blood pressure was low at 98/63 initially and then it decreased down to 79/47. Work-up in the emergency room included labs which showed a white blood cell count of 9.5, hemoglobin is 7.7, Covid antigen was negative, chest x-ray showed no cardiopulmonary findings, UA showed occult blood of 250, positive nitrate, WBCs greater than 100, no urine bacteria was noted to be present on the specimen. Patient was initially admitted to PCU, she had continued hypotension and was transferred to the ICU for initiation of vasopressor support, she was seen by infectious diseases and pulmonary medicine, patient's urine culture resulted positive for E. coli, she was felt to be in septic shock and after a time, her vasopressors were titrated off and she was transferred to PCU. On 01/01/2021, patient was seen and examined: On examination she appeared in good health and spirits, she does not appear to be in any distress. Vital signs as documented. Skin warm and dry and without overt rashes. Neck without JVD, thyroid appears normal, trachea is midline, neck is supple. Lungs clear, normal air movement was noted. Heart exam notable for regular rhythm, normal sounds and absence of murmurs, rubs or gallops. Abdomen unremarkable and without evidence of organomegaly, masses, or abdominal aortic enlargement, bowel sounds are present in all 4 quadrants, no abdominal tenderness was noted. Extremities nonedematous, no cyanosis was noted, no clubbing was noted. Neuro: Cranial nerves II through XII are grossly intact, patient is paraplegic Psych: Patient is alert and oriented x3, she does not appear anxious or depressed, she does not appear agitated. On 01/01/2021, patient appears stable for discharge home. Weight / BMI Weight Weight: 65 kg Body Mass Index (BMI) 21.9 ABG / Lab / Microbiology Data Result Diagrams: 01/01/21 06:42 01/01/21 06:42 Laboratory: Laboratory Results - last 24 hr 01/01/21 06:42: WBC 5.7, RBC 3.12 L, Hgb 7.6 L, Hct 26.0 L, MCV 83.3, MCH 24.4 L, MCHC 29.2 L, RDW Std Deviation 56.8 H, RDW Coeff of Deborah 18.6 H, Plt Count 511 H, MPV 8.6, Immature Gran % (Auto) 1.200 H, Neut % (Auto) 67.7, Lymph % (Auto) 20.2, [place] % (Auto) 5.6, Eos % (Auto) 4.9, Baso % (Auto) 0.4, Absolute Neuts (auto) 3.9, Absolute Lymphs (auto) 1.15, Nucleated RBC % 0 01/01/21 06:42: Sodium 143, Potassium 4.4, Chloride 113 H, Carbon Dioxide 24.0, Anion Gap 6, BUN 4 L, Creatinine 0.41 L, Estim Creat Clear Calc 141.72, Est GFR (MDRD) Af Amer 206, Est GFR (MDRD) Non-Af 170, BUN/Creatinine Ratio 9.8 L, Glucose 90, Calcium 7.6 L Microbiology: Microbiology 12/27/20 17:15 Blood Culture (Wb) - Port Blood Culture - Preliminary No growth in 48 hours. 12/27/20 16:20 Blood Culture (Wb) - Right Wrist Blood Culture - Preliminary No growth in 48 hours. 12/27/20 18:50 Urine Catheter - Catheter Urine Culture - Final Presumptive E. coli 12/27/20 17:00 Nasal Secretion SARS-CoV-2 Antigen (Rapid) - Final D/C Instructions Discharge Diet: No restrictions Meaningful Use Info Meaningful Use Diagnoses (Choose all that apply): None applicable Discharge Plan Admission Admit Date/Time: 12/27/20 19:57 Primary Reason for Your Visit: septic shock Attending Provider: Gino Bianchi Primary Care Provider: Aaron Chand Consulting Providers: Jason Tyson ; Gurdeep Killian Discharge Orders/Prescriptions Prescriptions: New HySept 0.25 % Solution 1 applic topical DAILY Qty: 0 RF: 0 amoxicillin 875 mg tablet 875 mg PO BID Qty: 9 RF: 0 Continued acyclovir 400 mg tablet 400 mg PO DAILY RF: 0 methadone 5 mg tablet 10 mg PO QHS RF: 0 oxycodone 10 mg tablet 10 mg PO TID PRN PRN (Reason: Pain) RF: 0 gabapentin 100 mg capsule 100 mg PO BID RF: 0 baclofen 5 mg tablet 7.5 mg PO BID RF: 0 temazepam 30 MG capsule 30 mg PO QHS RF: 0 furosemide 20 mg tablet 20 mg PO BID RF: 0 gabapentin 300 mg capsule 300 mg PO QHS RF: 0 apixaban 5 MG tablet 5 mg PO BID RF: 0 levothyroxine [Euthyrox] 75 mcg tablet 75 mcg PO MOTUWETHFRSA RF: 0 levothyroxine [Euthyrox] 75 mcg tablet 150 mcg PO PLASCENCIA RF: 0 methenamine hippurate 1 gram tablet 1 g PO BID RF: 0 calcium carbonate [Calcium 500] 500 mg calcium (1,250 mg) Tablet 500 mg PO DAILY RF: 0 polyethylene glycol 3350 17 gram/dose Powder 17 g PO QODAY RF: 0 methadone 5 mg tablet 15 mg PO DAILY RF: 0 cholecalciferol (vitamin D3) 25 mcg (1,000 unit) Capsule 25 mcg PO DAILY RF: 0 melatonin 10 mg Tablet 20 mg PO QHS RF: 0 carvedilol [Coreg] 3.125 mg tablet 3.125 mg PO BID RF: 0 potassium chloride 20 mEq tablet extended release 20 meq PO TID RF: 0 Referrals / Follow Up: Aaron Chand MD [Primary Care Provider] - Within 2 Weeks (Please call to setup an appointment. ) Disposition Disposition (needs filled in before D/C Order can be placed): Home Health Service Charges/Coding Visit Charges Inpatient E&M: 68132 Disch Hosp
--- NOTE | 2021-01-02 15:58 | CASEMGMT ---
RN CM Discharge Follow-Up Phone Call. Lace: 15 Strata: 4 Discharge Date: 01/01/21 Adm Dx: Acute UTI, complicated Attempted discharge f/u phone call. No answer. Recording w/pt's name identified came on. VM left for return call to RN ROHAN if there are any questions or concerns. Phone number provided. Isael GARCIA RN CM
== END 2021-01-01 13:06 | disposition home health service (06) | DRG 698 ==
LOC: ED 19:37 → PCU 20:05 → ICU 12-28 01:49 → PCU 12-31 11:00
PROVIDERS: Internal Medicine Critical Care Medicine; Student in an Organized Health Care Education/Training Program; Admitting Provider Family Medicine; Emergency Provider Emergency Medicine; PCP Family Medicine; Visit Provider Internal Medicine
DX: T83.511A Infection and inflammatory reaction due to indwelling urethral catheter, initial encounter (principal); A41.51 Sepsis due to Escherichia coli [E. coli]; L89.154 Pressure ulcer of sacral region, stage 4; L89.324 Pressure ulcer of left buttock, stage 4; R65.21 Severe sepsis with septic shock; C64.9 Malignant neoplasm of unspecified kidney, except renal pelvis; C79.51 Secondary malignant neoplasm of bone; G82.20 Paraplegia, unspecified; I42.8 Other cardiomyopathies; I25.10 Atherosclerotic heart disease of native coronary artery without angina pectoris; I10 Essential (primary) hypertension; E78.5 Hyperlipidemia, unspecified; E03.9 Hypothyroidism, unspecified; D64.9 Anemia, unspecified
CPT/HCPCS: 11042; 11043; 11045; 11046; 36415; 36591; 71045; 80048; 80053; 81001; 83605; 83735; 84100; 84443; 84484; 85025; 85610; 85730; 86850; 86900; 86901; 86920; 87040; 87086; 87088; 87186; 87426; 93005; 97802; 97803; 99251; 99284; J7030; J7040; J7050; P9040; A4216; G0463; J0610

== ENCOUNTER 2021-01-21 10:15 | Outpatient (RCR) | payer MEDICARE, SELFPAY ==
[2021-01-07 00:22] VITALS: BP 72/42; PULSE 85; RESP 16; TEMP 36.8; BMI 22.9
[2021-01-07 10:31] VITALS: BP 100/60; PULSE 96; RESP 16; TEMP 36.3; BMI 22.9
--- NOTE | 2021-01-07 12:45 | PCM.WC.PN ---
History of Present Illness Date of Service: 01/07/21 Chief Complaint: Sacral pressure sore, Stage IV, and left ischial pressure sore, Stage IV. History of Wound: 55 year old female with a history of renal cancer and metastasis to the bone [facility] with a sacral pressure sore and left ischial pressure sore. was admitted on 07/11/20 and discharged on 07/13/20 for sepsis related to an infected decubitus ulcer. She has been a paraplegic for 2.5 years after her back hardware broke. Her Oncologist is Dr. Valiente and she is on Cabometyx. Surgery on 09/19/20 for 1. Excision left ischial pressure sore, Stage IV, with partial ostectomy for osteomyelitis. 2. Excision sacral pressure sore, Stage IV. Discharged 09/26/20. New ulcer to left posterior knee caused by her urine leg bag rubbing against her skin. Her first noticed it a few days ago as a scabbing. Wound culture obtained 11/19/20 which was positive for Staphylococcus aureus and Corynebacterium striatum and is being treated with Augmentin. She obtained second degree ko on her anterior thighs bilaterally a several weeks ago when placing a rice pack that was too hot. They have been placing on triple antibiotic ointment and covering with ABD pads. Wound care - Wound VAC at 150 mmHg to left ischial ulcer and the left sacral ulcer with adaptic over the bone. Dressing to be changed 3 times per week. Left posterior knee pack with Dakins moistened gauze and cover with gauze daily. Will get approval for wound VAC to the left posterior knee and connect with a Y-connector. Right anterior thigh burn will start Collagen hydrogel covered with adaptic then gauze daily. Left anterior leg continue adaptic then gauze daily. Wound culture of left posterior knee 11/19/20 positive for Staphylococcus aureus and Corynebacterium striatum. She has been started on Augmentin. Operative wound cultures: Ischial pressure sore tissue positive for Staphylococcus aureus, Streptococcus group G, Streptococcus mitis/oralis, Anaerobic cocci and Bacteroides pyogenes. Ischial bone culture Staphylococcus aureus, Enterococcus faecalis, Streptococcue mitis/oralis , Anaerobic cocci, and Bacteroides pyogenes. Sacral tissue positive Staphylococcus aureus, Streptococcus mitis/oralis, Anaerobic cocci and Bacteroides pyogenes. Vancomycin IV had to be stopped due elevated liver enzymes. The other IV antibiotics that would be sensitive would cost the patient too much per week and patient doesn't want placed in a facility for IV antibiotics. She decided to start Augmentin po, which will not have as good bone coverage as an IV antibiotics would have. She had been sitting in her wheelchair up to 12 hours a day while her is at work. They have someone come and help her out of bed in the morning and get her into her wheelchair. She has a new cushion on her wheelchair from the past several months. Wound culture was done on 07/24/20. The left ischial pressure sore was positive for Pseudomonas oryzihabitans and MRSE. The sacral pressure sore was positive for E.coli, Entercoccus faecalis, Methicillin resistant Staphylococcus haemolyticus. She was started Doxycycline, Cipro and Augmentin. She was hospitalized 12/27/20 - 01/01/21 for Septic shock and Acute complicated UTI which showed E. coli. She was treated with IV antibiotics while hospitalized and discharged home on Amoxicillin. Today she denies fever, chills and states she has a good appetite. Encourage nutritional supplementation with protein to help the healing process. Progress of Wound: Sacral ulcer with increased non-viable tissue with an odor present. Left ischial ulcer is stable. Left posterior knee is beefy pink with less fat necrosis present. Right anterior thigh burn is improved. Objective Data Objective Data Vital Signs: Vital Signs Temp Pulse Resp BP 97.3 F L 96 16 100/60 01/07/21 10:31 01/07/21 10:31 01/07/21 10:31 01/07/21 10:31 Oxygen Delivery Method Room Air Weight: 148 lb Body Mass Index (BMI) 22.9 Charges/Coding Addendum Addendum: 94036 - right anterior thigh burn Procedures Integumentary 111xxx-113xx: [id number] Jerilyn musc/fascia 20 sq cm/< Add On Codes: 56924 Jerilyn musc/fascia add-on (x5) Physical Exam Const alert and oriented x3 HEENT normocephalic Resp normal respiratory effort Cardio regular rate GI Palpation: soft Extremity normal to inspection Skin Wound Narrative: Sacral ulcer with increased non-viable tissue with an odor present. Left ischial ulcer is stable. Left posterior knee is beefy pink with less fat necrosis present. Right anterior thigh burn is improved. Neuro CN's II-XII intact bilaterally Psych Appearance: grossly normal Debridement Note Debridement Note Wound debrided: sacral ulcer Laterality: Not Applicable Wound Grade/Stage: Stage IV Type of Debridement: Excisional debridement and Selective debridement Anesthesia Used: 4% Lidocaine Solution Depth: Down to and including healthy tissue, in the subcutaneous layer, to muscle and to bone Percentage of wound debrided: 100 Instrument Used: - (Misonix ultrasound debridement instrument) Tissue Removed: Subcutaneous tissue and slough into the muscle with bone exposure Severity: Fat Layer Exposed Amount of bleeding with debridement: Mild Bleeding Controlled with: Pressure Patient tolerated procedure: Patient tolerated procedure well Debridement Free Text: Increased odor with debridementL Post-Debridement Measurements and Additional Note: Post-Debridement Measurements/Treatment WC - Nurse 1 - General Ulcer Assessment Start: 01/07/21 10:31 Freq: Status: Active Protocol: [email or web address] Activity Type Activity Date Activity User E-Sign Co-Sign Detail Recorded Client Recorded Date Recorded By Document 01/07/21 10:31 DL [id number] 01/07/21 10:44 DL 01/07/21 10:31 - Today's Visit Information Type of service Follow-up Visit (Physician/WAISTLINE JOINER OVERLOCK ) Arrival Mode Wheelchair Transfer Assistance Manual Transfer Assist (Other) manually transfer Accompanied by Patient Identification Verified (Name & Yes ) Patient Requires Transmission-Based No Precautions Height and Weight Body Mass Index (BMI) 22.9 BMI Classification Normal Vital Signs Temperature (97.8 F-99.1 F) 97.3 F L Temperature Source Temporal Pulse Rate (60-100) 96 Pulse Location Monitor Respiratory Rate (12-18) 16 Respiratory rate source Observation Oxygen Delivery Method Room Air Blood Pressure (90/60-120/80) 100/60 Blood Pressure Mean (mm Hg) 73 Source Monitor Position Sitting History Since Last Visit- (Skip if this is Patient's initial visit) Have you changed medications since your No last visit? Any new allergies or adverse reactions No Had a fall/change in ADL's that may No increase risk of falls Signs or symptoms of abuse and/or No neglect since last visit Have you been in the hospital since your Yes last visit? Has dressing in place as prescribed Yes Has compression in place as prescribed N/A Has offloadiing in place as prescribed N/A Experienced any changes in pain level or No management Left Footwear Regular Shoe Right Footwear Regular Shoe Pain Scale: 0-10 Numeric Is Patient Pain Free? Yes WC - Nurse 1 - General Ulcer Measurement Start: 01/07/21 10:31 Freq: Status: Active Protocol: Activity Type Activity Date Activity User E-Sign Co-Sign Detail Recorded Client Recorded Date Recorded By Document 01/07/21 10:31 DL [id number] 01/07/21 10:44 DL 01/07/21 10:31 Wound Center Nurse 1 6-right medial thigh cluster -Combined with other wound No -Current Size (cm) - Length 5 -Current Size (cm) - Width 3.8 -Current Size (cm) - Depth 0.1 -Total Square Cm 19.0 -Photo Taken No -Epithelialization Medium 34-66% -Tunneling No -Undermining/Tunneling No -Circular Undermining No -Exudate Amt Medium -Exudate Type Serosanguineous -Wound Margin Distinct, Outline Attached -Granulation Amt Medium (34-66%) -Granulation Quality Red -Slough/Fibrin Yes -Necrosis Amt Small (1-33%) -Necrotic Tissue Type Adherent Slough -Texture (Annamaria-wound Skin Appearance) Assessed, Scarring -Moisture (Annamaria-wound Skin Appearance) Assessed -Color (Annamaria-wound Skin Appearance) Assessed -Temperature (Annamaria-wound Skin No Abnormality Appearance) (Pt Warm) -Tenderness on Palpation (Annamaria-wound No Skin Appearance) -Ulcer Cleansing Soap and Water -Foul Odor after Cleansing No #5 L Post Knee -Combined with other wound No -Current Size (cm) - Length 2.8 -Current Size (cm) - Width 1.8 -Current Size (cm) - Depth 1.3 -Total Square Cm 5.04 -Photo Taken No -Epithelialization None Present -Tunneling No -Undermining/Tunneling No -Circular Undermining No -Exudate Amt Medium -Exudate Type Serosanguineous -Wound Margin Distinct, Outline Attached -Granulation Amt Medium (34-66%) -Granulation Quality Red -Slough/Fibrin Yes -Necrosis Amt Medium (34-66%) -Necrotic Tissue Type Adherent Slough -Texture (Annamaria-wound Skin Appearance) Assessed, Scarring -Moisture (Annamaria-wound Skin Appearance) Assessed -Color (Annamaria-wound Skin Appearance) Assessed -Temperature (Annamaria-wound Skin No Abnormality Appearance) (Pt Warm) -Tenderness on Palpation (Annamaria-wound No Skin Appearance) -Ulcer Cleansing Soap and Water -Foul Odor after Cleansing No #3 left ischium -Combined with other wound No -Current Size (cm) - Length 7.2 -Current Size (cm) - Width 7.5 -Current Size (cm) - Depth 2.3 -Total Square Cm 54.00 -Photo Taken No -Epithelialization None Present -Tunneling No -Undermining/Tunneling Yes -Undermining/Tunneling Starts (O'clock 10 ) -Undermining/Tunneling Ends (O'clock) 2 -Maximum Distance (cm) 4.5 -Circular Undermining No -Exudate Amt Medium -Exudate Type Serosanguineous -Wound Margin Distinct, Outline Attached -Granulation Amt Large (67-100%) -Granulation Quality Red -Slough/Fibrin Yes -Necrosis Amt Small (1-33%) -Necrotic Tissue Type Adherent Slough -Structure Exposed Bone -Texture (Annamaria-wound Skin Appearance) Assessed, Scarring -Moisture (Annamaria-wound Skin Appearance) Assessed -Color (Annamaria-wound Skin Appearance) Assessed -Temperature (Annamaria-wound Skin No Abnormality Appearance) (Pt Warm) -Tenderness on Palpation (Annamaria-wound No Skin Appearance) -Ulcer Cleansing Soap and Water -Foul Odor after Cleansing No -Anesthetic Used 4% Lidocaine Solution #4 sacrum -Combined with other wound No -Current Size (cm) - Length 6 -Current Size (cm) - Width 7.5 -Current Size (cm) - Depth 3.1 -Total Square Cm 45.0 -Photo Taken No -Epithelialization None Present -Tunneling No -Undermining/Tunneling Yes -Undermining/Tunneling Starts (O'clock 10 ) -Undermining/Tunneling Ends (O'clock) 12 -Maximum Distance (cm) 2.7 -Circular Undermining No -Exudate Amt Large -Exudate Type Serosanguineous -Wound Margin Distinct, Outline Attached -Granulation Amt Large (67-100%) -Granulation Quality Red -Slough/Fibrin Yes -Necrosis Amt Medium (34-66%) -Necrotic Tissue Type Adherent Slough -Structure Exposed Bone -Texture (Annamaria-wound Skin Appearance) Assessed, Scarring -Moisture (Annamaria-wound Skin Appearance) Assessed -Color (Annamaria-wound Skin Appearance) Assessed -Temperature (Annamaria-wound Skin No Abnormality Appearance) (Pt Warm) -Tenderness on Palpation (Annamaria-wound No Skin Appearance) -Ulcer Cleansing Soap and Water -Foul Odor after Cleansing No WC - Nurse 2 - General Ulcer CM Notes Start: 01/07/21 10:31 Freq: Status: Active Protocol: Activity Type Activity Date Activity User E-Sign Co-Sign Detail Recorded Client Recorded Date Recorded By Document 01/07/21 11:18 ESTRELLA [id number] 01/07/21 11:47 ESTRELLA Edit Result 01/07/21 11:18 JF (1) [id number] 01/07/21 11:47 JF (1) #4 sacrum - Debridement, Muscle/Fascia, ea addt'l 2 => 5 20sq cm or part thereof 01/07/21 11:18 Wound Center Nurse 2 6-right medial thigh cluster -Time 11:42 -Correct Patient Yes -Correct Side, Site, Position Yes -Correct Procedure Yes -Procedure Performed Yes -Type of Procedure Debridement -Clinical Debridement Subcutaneous -Tissue Removed Subcutaneous -Post Debridement (cm) - Length 5.5 -Post Debridement (cm) - Width 4 -Post Debridement (cm) - Depth 0.1 -Total Square (Post) (cm) 22.0 -Area of Debridement (cm) - Length 5.5 -Area of Debridement (cm) - Width 4 -Total Square (Area) (cm) 22.0 -Tunneling No -Undermining/Tunneling No -Circular Undermining No -Wound/Ulcer Outcome Not Healed -Ulcer Cleansing Rinsed/ Irrigated with Saline -Foul Odor after Cleansing No -Bioengineered Tissue No -Bleeding Controlled with Pressure -Offloading No -Treatment Response Procedure Tolerated Well -Debridement - Subq, 1st 20sq cm Yes -Debridement, SubQ, ea addt'l 20sq cm 1 or part thereof #5 L Post Knee -Time 11:29 -Correct Patient Yes -Correct Side, Site, Position Yes -Correct Procedure Yes -Procedure Performed Yes -Type of Procedure Debridement -Clinical Debridement Muscle / Fascia -Tissue Removed Muscle -Post Debridement (cm) - Length 2.4 -Post Debridement (cm) - Width 2 -Post Debridement (cm) - Depth 2.1 -Total Square (Post) (cm) 4.8 -Area of Debridement (cm) - Length 2.4 -Area of Debridement (cm) - Width 2 -Total Square (Area) (cm) 4.8 -Tunneling No -Undermining/Tunneling No -Circular Undermining No -Wound/Ulcer Outcome Not Healed -Ulcer Cleansing Rinsed/ Irrigated with Saline -Foul Odor after Cleansing No -Bioengineered Tissue No -Bleeding Controlled with Pressure -Offloading No -Treatment Response Procedure Tolerated Well -Debridement - Subq, 1st 20sq cm No -Debridement - Muscle / Fascia, 1st No 20sq cm #3 left ischium -Time 11:32 -Correct Patient Yes -Correct Side, Site, Position Yes -Correct Procedure Yes -Procedure Performed Yes -Type of Procedure Debridement -Clinical Debridement Muscle / Fascia -Tissue Removed Muscle -Post Debridement (cm) - Length 8 -Post Debridement (cm) - Width 6 -Post Debridement (cm) - Depth 5.4 -Total Square (Post) (cm) 48 -Area of Debridement (cm) - Length 8 -Area of Debridement (cm) - Width 6 -Total Square (Area) (cm) 48 -Tunneling No -Undermining/Tunneling No -Circular Undermining No -Wound/Ulcer Outcome Not Healed -Ulcer Cleansing Rinsed/ Irrigated with Saline -Foul Odor after Cleansing No -Bioengineered Tissue No -Bleeding Controlled with Pressure -Offloading No -Treatment Response Procedure Tolerated Well -Debridement - Muscle / Fascia, 1st No 20sq cm #4 sacrum -Time 11:33 -Correct Patient Yes -Correct Side, Site, Position Yes -Correct Procedure Yes -Procedure Performed Yes -Type of Procedure Debridement -Clinical Debridement Muscle / Fascia -Tissue Removed Muscle -Post Debridement (cm) - Length 7 -Post Debridement (cm) - Width 7 -Post Debridement (cm) - Depth 4 -Total Square (Post) (cm) 49 -Area of Debridement (cm) - Length 7 -Area of Debridement (cm) - Width 7 -Total Square (Area) (cm) 49 -Tunneling No -Undermining/Tunneling No -Circular Undermining No -Wound/Ulcer Outcome Not Healed -Ulcer Cleansing Rinsed/ Irrigated with Saline -Foul Odor after Cleansing No -Bioengineered Tissue No -Bleeding Controlled with Pressure -Offloading No -Debridement - Muscle / Fascia, 1st Yes 20sq cm -Debridement, Muscle/Fascia, ea addt'l 5 20sq cm or part thereof Pain Scale: 0-10 Numeric Is Patient Pain Free? Yes WC - Nurse 3 - General Ulcer D/C NN Start: 01/07/21 10:31 Freq: Status: Active Protocol: Activity Type Activity Date Activity User E-Sign Co-Sign Detail Recorded Client Recorded Date Recorded By Document 01/07/21 12:03 CLAUS [id number] 01/07/21 12:06 CLAUS 01/07/21 12:03 Wound Care Nurse 3 6-right medial thigh cluster -Ulcer Cleansing Rinsed/ Irrigated with Saline -Primary Dressing Applied C Hydrogel ($), Mepilex Border -Mepilex Border 1 #5 L Post Knee -Ulcer Cleansing Rinsed/ Irrigated with Saline -Primary Dressing Covered/Secured with Dry Gauze, Secured with Tape #3 left ischium -Ulcer Cleansing Soap and Water -Foul Odor after Cleansing No -Other Dressing moist gauze -Primary Dressing Covered/Secured with Dry Gauze, Secured with Tape -Other Covering abd #4 sacrum -Ulcer Cleansing Soap and Water -Foul Odor after Cleansing No -Other Dressing moistgauze -Primary Dressing Covered/Secured with Dry Gauze, Secured with Tape Treatment Response Procedure Tolerated Well Pain Scale: 0-10 Numeric Is Patient Pain Free? Yes WC - Visit Discharge Discharge Condition Stable Ambulatory Status Wheelchair Transportation Private Auto Facility Type Project Manager/Design Manager Care Facility Orders Sent Yes Additional Wound Wound debrided: Ischial ulcer Laterality: Left Wound Grade/Stage: Stage IV Type of Debridement: Excisional debridement Anesthesia Used: 4% Lidocaine Solution Depth: Down to and including healthy tissue, in the subcutaneous layer, to muscle and to bone Percentage of wound debrided: 100 Instrument Used: - (Misonix ultrasound debridement instrument) Tissue Removed: Subcutaneous tissue and slough into the muscle with bone exposure Severity: Fat Layer Exposed Amount of bleeding with debridement: Mild Bleeding Controlled with: Pressure Patient tolerated procedure: Patient tolerated procedure well Additional Wound Wound debrided: Left posterior knee Laterality: Left Wound Grade/Stage: Stage IV Type of Debridement: Excisional debridement Anesthesia Used: 4% Lidocaine Solution Depth: Down to and including healthy tissue, in the subcutaneous layer and to muscle Percentage of wound debrided: 100 Instrument Used: - (Misonix ultrasound debridement instrument) Tissue Removed: Subcutaneous tissue and slough into the muscle Severity: Fat Layer Exposed Amount of bleeding with debridement: Mild Bleeding Controlled with: Pressure Patient tolerated procedure: Patient tolerated procedure well Assessment/Plan Assessment/Plan (1) Sacral decubitus ulcer, stage IV: CODE(S): L89.154 - Pressure ulcer of sacral region, stage 4 (2) Pressure sore of left ischium, stage 4: CODE(S): L89.324 - Pressure ulcer of left buttock, stage 4 (3) Second degree burn of thigh: CODE(S): T24.219A - Burn of second degree of unspecified thigh, initial encounter (4) Ulcer of left knee: CODE(S): L97.829 - Non-pressure chronic ulcer of other part of left lower leg with unspecified severity QUALIFIERS: Non-pressure ulcer stage: with fat layer exposed Qualified Code(s): L97.822 - Non-pressure chronic ulcer of other part of left lower leg with fat layer exposed (5) Osteomyelitis of pelvis: CODE(S): M86.9 - Osteomyelitis, unspecified (6) Malignant neoplasm of unspecified kidney, except renal pelvis: CODE(S): C64.9 - Malignant neoplasm of unspecified kidney, except renal pelvis (7) Paraplegia following spinal cord injury: CODE(S): G82.20 - Paraplegia, unspecified (8) Metastatic renal cell carcinoma to bone: CODE(S): C79.51 - Secondary malignant neoplasm of bone; C64.9 - Malignant neoplasm of unspecified kidney, except renal pelvis PLAN: Wound care - Wound VAC at 150 mmHg to left ischial ulcer and the left sacral ulcer with adaptic over the bone. Dressing to be changed 3 times per week. Left posterior knee pack with Dakins moistened gauze and cover with gauze daily until vac is approved. Will get approval for wound VAC to the left posterior knee and connect with a Y-connector. Right anterior thigh burn will continue Collagen hydrogel covered Mepilex dressing 3 x per week. Left anterior leg continue dry gauze daily. She has odor of the sacral ulcer has an odor today. Wound culture obtained. Depending on the results of the culture she may require treatment with antibiotics. Wound culture of left posterior knee 11/19/20 positive for Staphylococcus aureus and Corynebacterium striatum. She completed Augmentin. Operative wound cultures: Ischial pressure sore tissue positive for Staphylococcus aureus, Streptococcus group G, Streptococcus mitis/oralis, Anaerobic cocci and Bacteroides pyogenes. Ischial bone culture Staphylococcus aureus, Enterococcus faecalis, Streptococcus mitis/oralis , Anaerobic cocci, and Bacteroides pyogenes. Sacral tissue positive Staphylococcus aureus, Streptococcus mitis/oralis, Anaerobic cocci and Bacteroides pyogenes. Vancomycin IV had to be stopped due elevated liver enzymes. The other IV antibiotics that would be sensitive would cost the patient too much per week and patient doesn't want placed in a facility for IV antibiotics. She decided to start Augmentin po, which will not have as good bone coverage as an IV antibiotics would have. Wound culture of left posterior knee ulcer obtained 11/19/20 were positive for Staphylococcus aureus and Corynebacterium striatum. She completed the Augmentin that was prescribed for this. Wound culture obtained on 07/24/20 of left ischial ulcer positive for Pseudomonas oryzihabitans and MRSE. Cultures of sacral ulcer positive for E.coli, Enterococcus faecalis, Staphylococcus haemolyticus. She was started Doxycycline, Cipro and Augmentin. Encouraged patient not to sit in her wheelchair for 12 hours. If she is in her wheelchair, then she must shift her weight every 20 minutes so she is not sitting in the same place all the time. Follow up 2 weeks.
[2021-01-21 10:25] VITALS: BP 95/55; PULSE 84; RESP 16; TEMP 36.4; BMI 22.9
--- NOTE | 2021-01-21 15:34 | PCM.WC.PN ---
History of Present Illness Date of Service: 01/21/21 Chief Complaint: Sacral pressure sore, Stage IV, and left ischial pressure sore, Stage IV. History of Wound: 55 year old female with a history of renal cancer and metastasis to the bone presented [facility] with a sacral pressure sore and left ischial pressure sore. was admitted on 07/11/20 and discharged on 07/13/20 for sepsis related to an infected decubitus ulcer. She has been a paraplegic for 2.5 years after her back hardware broke. Her Oncologist is Dr. Valiente and she is on Cabometyx. Surgery on 09/19/20 for 1. Excision left ischial pressure sore, Stage IV, with partial ostectomy for osteomyelitis. 2. Excision sacral pressure sore, Stage IV. Discharged 09/26/20. New ulcer to left posterior knee caused by her urine leg bag rubbing against her skin. Her first noticed it a few days ago as a scabbing. Wound culture obtained 11/19/20 which was positive for Staphylococcus aureus and Corynebacterium striatum and is being treated with Augmentin. She obtained second degree ko on her anterior thighs bilaterally a several weeks ago when placing a rice pack that was too hot. They have been placing on triple antibiotic ointment and covering with ABD pads. Wound care - Wound VAC at 150 mmHg to left ischial ulcer and the left sacral ulcer with adaptic over the bone and left posterior knee which will use a Y-connector. Dressing to be changed 3 times per week. Right anterior thigh burn will start Collagen hydrogel covered with adaptic then gauze daily. Left anterior leg continue adaptic then gauze daily. Wound culture of sacral ulcer 01/07/21 positive for Corynebacterium striatum, Streptococcus mitis/oralis, Enterococcus faecalis, Anaerobic cocci, Actinomyces bovis, Bacteroides caccae, Bacteroides thetaiotaomicron. She was started on Clindamycin and Augmentin along with probiotic to treat the wound culture. Wound culture of left posterior knee 11/19/20 positive for Staphylococcus aureus and Corynebacterium striatum. She has been started on Augmentin. Operative wound cultures: Ischial pressure sore tissue positive for Staphylococcus aureus, Streptococcus group G, Streptococcus mitis/oralis, Anaerobic cocci and Bacteroides pyogenes. Ischial bone culture Staphylococcus aureus, Enterococcus faecalis, Streptococcue mitis/oralis , Anaerobic cocci, and Bacteroides pyogenes. Sacral tissue positive Staphylococcus aureus, Streptococcus mitis/oralis, Anaerobic cocci and Bacteroides pyogenes. Vancomycin IV had to be stopped due elevated liver enzymes. The other IV antibiotics that would be sensitive would cost the patient too much per week and patient doesn't want placed in a facility for IV antibiotics. She decided to start Augmentin po, which will not have as good bone coverage as an IV antibiotics would have. She had been sitting in her wheelchair up to 12 hours a day while her is at work. They have someone come and help her out of bed in the morning and get her into her wheelchair. She has a new cushion on her wheelchair from the past several months. Wound culture was done on 07/24/20. The left ischial pressure sore was positive for Pseudomonas oryzihabitans and MRSE. The sacral pressure sore was positive for E.coli, Entercoccus faecalis, Methicillin resistant Staphylococcus haemolyticus. She was started Doxycycline, Cipro and Augmentin. She was hospitalized 12/27/20 - 01/01/21 for Septic shock and Acute complicated UTI which showed E. coli. She was treated with IV antibiotics while hospitalized and discharged home on Amoxicillin. Today she denies fever, chills and states she has a good appetite. Encourage nutritional supplementation with protein to help the healing process. Progress of Wound: Sacral ulcer, left ischial ulcer are stable. Left posterior knee ulcer is improved. Right anterior leg wound is improved. Left anterior leg wound remains healed. Objective Data Objective Data Vital Signs: Vital Signs Temp Pulse Resp BP 97.5 F L 84 16 95/55 L 01/21/21 10:25 01/21/21 10:25 01/21/21 10:25 01/21/21 10:25 Oxygen Delivery Method Room Air Weight: 148 lb Body Mass Index (BMI) 22.9 Lab / Micro Data Micro: Microbiology 01/07/21 11:38 Wound Abcess - Sacral Gram Stain - Final 01/07/21 11:38 Wound Abcess - Sacral Wound Culture - Final Corynebacterium striatum Streptococcus mitis/ oralis Enterococcus faecalis 01/07/21 11:38 Wound Abcess - Sacral Anaerobic Culture - Final Anaerobic cocci Actinomyces bovis Bacteroides caccae Bacteroides thetaiotaomicron Charges/Coding Procedures Integumentary 111xxx-113xx: [id number] Jerilyn musc/fascia 20 sq cm/< (sacral and left ischial and posterior left knee ulcer) Add On Codes: 14913 Jerilyn musc/fascia add-on (x4) Multi Select Codes Integumentary Integumentary CPT Codes: 17762 Jerilyn subq tissue 20 sq cm/< (right anterior thigh) Physical Exam Const alert and oriented x3 General Appearance: cooperative HEENT normocephalic Head and Scalp: atraumatic Resp normal respiratory effort Cardio regular rate GI non-tender Palpation: soft Extremity normal capillary refill Skin Wound Narrative: Sacral ulcer is stable, no odor, less biofilm, muscle and bone exposure this week. Left ischial ulcer is stable with muscle and bone exposure. Left posterior knee ulcer has improved, less biofilm and depth has improved. Right anterior thigh ulcer is healing well. Neuro CN's II-XII intact bilaterally Psych Appearance: grossly normal Debridement Note Debridement Note Wound debrided: Sacral ulcer Wound Grade/Stage: Stage IV Type of Debridement: Excisional debridement Anesthesia Used: 4% Lidocaine Solution Depth: Down to and including healthy tissue, in the subcutaneous layer and to muscle Percentage of wound debrided: 100 Instrument Used: 7mm curette Tissue Removed: Subcutaneous tissue and slough into the muscle with bone exposure Severity: Fat Layer Exposed Amount of bleeding with debridement: Mild Bleeding Controlled with: Pressure and Compression and gauze Patient tolerated procedure: Patient tolerated procedure well Post-Debridement Measurements and Additional Note: Post-Debridement Measurements/Treatment - Nurse 1 - General Ulcer Assessment Start: 01/07/21 10:31 Freq: Status: Active Protocol: YOLA Activity Type Activity Date Activity User E-Sign Co-Sign Detail Recorded Client Recorded Date Recorded By Document 01/07/21 10:31 DL [id number] 01/07/21 10:44 DL Document 01/21/21 10:25 [facility] [id number] 01/21/21 10:51 [facility] 01/07/21 01/21/21 10:31 10:25 - Today's Visit Information Type of service Follow-up Visit Follow-up Visit (Physician/PUMP TECHNICIAN (Physician/PUMP TECHNICIAN ) ) Arrival Mode Wheelchair Wheelchair Transfer Assistance Manual Other Transfer Assist (Other) manually transfers to transfer bed Accompanied by Patient Identification Verified (Name & Yes Yes ) Patient Requires Transmission-Based No No Precautions Height and Weight Body Mass Index (BMI) 22.9 22.9 BMI Classification Normal Normal Vital Signs Temperature (97.8 F-99.1 F) 97.3 F L 97.5 F L Temperature Source Temporal Temporal Pulse Rate (60-100) 96 84 Pulse Location Monitor Monitor Respiratory Rate (12-18) 16 16 Respiratory rate source Observation Observation Oxygen Delivery Method Room Air Room Air Blood Pressure (90/60-120/80) 100/60 95/55 L Blood Pressure Mean (mm Hg) 73 68 Source Monitor Monitor Position Sitting Sitting History Since Last Visit- (Skip if this is Patient's initial visit) Have you changed medications since your No No last visit? Any new allergies or adverse reactions No No Had a fall/change in ADL's that may No No increase risk of falls Signs or symptoms of abuse and/or No No neglect since last visit Have you been in the hospital since your Yes No last visit? Has dressing in place as prescribed Yes Yes Has compression in place as prescribed N/A N/A Has offloadiing in place as prescribed N/A N/A Experienced any changes in pain level or No No management Left Footwear Regular Shoe Regular Shoe Right Footwear Regular Shoe Regular Shoe Pain Scale: 0-10 Numeric Is Patient Pain Free? Yes Yes WC - Nurse 1 - General Ulcer Measurement Start: 01/07/21 10:31 Freq: Status: Active Protocol: Activity Type Activity Date Activity User E-Sign Co-Sign Detail Recorded Client Recorded Date Recorded By Document 01/07/21 10:31 [id number] 01/07/21 10:44 DL Document 01/21/21 10:25 [facility] [id number] 01/21/21 10:51 [facility] 01/07/21 01/21/21 10:31 10:25 Wound Center Nurse 1 6-right medial thigh cluster -Combined with other wound No No -Current Size (cm) - Length 5 3.5 -Current Size (cm) - Width 3.8 4.6 -Current Size (cm) - Depth 0.1 0.1 -Total Square Cm 19.0 16.10 -Photo Taken No No -Epithelialization Medium 34-66% Medium 34-66% -Tunneling No No -Undermining/Tunneling No No -Circular Undermining No No -Exudate Amt Medium Medium -Exudate Type Serosanguineous Serosanguineous -Wound Margin Distinct, Distinct, Outline Outline Attached Attached -Granulation Amt Medium (34-66%) Large (67-100%) -Granulation Quality Red Red -Slough/Fibrin Yes No -Necrosis Amt Small (1-33%) None Present (0 %) -Necrotic Tissue Type Adherent Slough Adherent Slough -Texture (Annamaria-wound Skin Appearance) Assessed, Assessed, Scarring Scarring -Moisture (Annamaria-wound Skin Appearance) Assessed Assessed -Color (Annamaria-wound Skin Appearance) Assessed Assessed -Temperature (Annamaria-wound Skin No Abnormality No Abnormality Appearance) (Pt Warm) (Pt Warm) -Tenderness on Palpation (Annamaria-wound No No Skin Appearance) -Ulcer Cleansing Soap and Water Soap and Water -Foul Odor after Cleansing No No #5 L Post Knee -Combined with other wound No No -Current Size (cm) - Length 2.8 1.4 -Current Size (cm) - Width 1.8 1.5 -Current Size (cm) - Depth 1.3 0.4 -Total Square Cm 5.04 2.10 -Photo Taken No No -Epithelialization None Present Small 1-33% -Tunneling No No -Undermining/Tunneling No No -Circular Undermining No No -Exudate Amt Medium Small -Exudate Type Serosanguineous Serosanguineous -Wound Margin Distinct, Distinct, Outline Outline Attached Attached -Granulation Amt Medium (34-66%) Large (67-100%) -Granulation Quality Red Red -Slough/Fibrin Yes Yes -Necrosis Amt Medium (34-66%) Small (1-33%) -Necrotic Tissue Type Adherent Slough Adherent Slough -Texture (Annamaria-wound Skin Appearance) Assessed, Assessed, Scarring Scarring -Moisture (Annamaria-wound Skin Appearance) Assessed Assessed -Color (Annamaria-wound Skin Appearance) Assessed Assessed -Temperature (Annamaria-wound Skin No Abnormality No Abnormality Appearance) (Pt Warm) (Pt Warm) -Tenderness on Palpation (Annamaria-wound No No Skin Appearance) -Ulcer Cleansing Soap and Water Soap and Water -Foul Odor after Cleansing No No #3 left ischium -Combined with other wound No No -Current Size (cm) - Length 7.2 6.3 -Current Size (cm) - Width 7.5 7 -Current Size (cm) - Depth 2.3 2.5 -Total Square Cm 54.00 44.1 -Photo Taken No No -Epithelialization None Present None Present -Tunneling No No -Undermining/Tunneling Yes Yes -Undermining/Tunneling Starts (O'clock 10 10 ) -Undermining/Tunneling Ends (O'clock) 2 1 -Maximum Distance (cm) 4.5 4 -Circular Undermining No No -Exudate Amt Medium Medium -Exudate Type Serosanguineous Serosanguineous -Wound Margin Distinct, Distinct, Outline Outline Attached Attached -Granulation Amt Large (67-100%) Large (67-100%) -Granulation Quality Red Red -Slough/Fibrin Yes Yes -Necrosis Amt Small (1-33%) Small (1-33%) -Necrotic Tissue Type Adherent Slough Adherent Slough -Structure Exposed Bone Bone -Texture (Annamaria-wound Skin Appearance) Assessed, Assessed Scarring -Moisture (Annamaria-wound Skin Appearance) Assessed Assessed -Color (Annamaria-wound Skin Appearance) Assessed Assessed -Temperature (Annamaria-wound Skin No Abnormality No Abnormality Appearance) (Pt Warm) (Pt Warm) -Tenderness on Palpation (Annamaria-wound No No Skin Appearance) -Ulcer Cleansing Soap and Water Soap and Water -Foul Odor after Cleansing No No -Anesthetic Used 4% Lidocaine Solution #4 sacrum -Combined with other wound No No -Current Size (cm) - Length 6 6 -Current Size (cm) - Width 7.5 6.9 -Current Size (cm) - Depth 3.1 2.5 -Total Square Cm 45.0 41.4 -Photo Taken No No -Epithelialization None Present None Present -Tunneling No No -Undermining/Tunneling Yes Yes -Undermining/Tunneling Starts (O'clock 10 10 ) -Undermining/Tunneling Ends (O'clock) 12 1 -Maximum Distance (cm) 2.7 2 -Circular Undermining No No -Exudate Amt Large Medium -Exudate Type Serosanguineous Serosanguineous -Wound Margin Distinct, Distinct, Outline Outline Attached Attached -Granulation Amt Large (67-100%) Large (67-100%) -Granulation Quality Red Red -Slough/Fibrin Yes Yes -Necrosis Amt Medium (34-66%) Small (1-33%) -Necrotic Tissue Type Adherent Slough Adherent Slough -Structure Exposed Bone Bone -Texture (Annamaria-wound Skin Appearance) Assessed, Assessed Scarring -Moisture (Annamaria-wound Skin Appearance) Assessed Assessed -Color (Annamaria-wound Skin Appearance) Assessed Assessed -Temperature (Annamaria-wound Skin No Abnormality No Abnormality Appearance) (Pt Warm) (Pt Warm) -Tenderness on Palpation (Annamaria-wound No No Skin Appearance) -Ulcer Cleansing Soap and Water Soap and Water -Foul Odor after Cleansing No No WC - Nurse 2 - General Ulcer CM Notes Start: 01/07/21 10:31 Freq: Status: Active Protocol: Activity Type Activity Date Activity User E-Sign Co-Sign Detail Recorded Client Recorded Date Recorded By Document 01/07/21 11:18 JF [id number] 01/07/21 11:47 JF Edit Result 01/07/21 11:18 JF (1) [id number] 01/07/21 11:47 JF Document 01/21/21 11:21 JF [id number] 01/21/21 11:32 JF Edit Result 01/21/21 11:21 JF (2) [id number] 01/21/21 11:34 JF (1) #4 sacrum - Debridement, Muscle/Fascia, ea addt'l 2 => 5 20sq cm or part thereof (2) #4 sacrum - Type of Procedure Incision & => Debridement Drainage => - Debridement, Muscle/Fascia, ea addt'l => 2 20sq cm or part thereof 01/07/21 01/21/21 11:18 11:21 Wound Center Nurse 2 6-right medial thigh cluster -Time 11:42 11:24 -Correct Patient Yes No -Correct Side, Site, Position Yes No -Correct Procedure Yes No -Procedure Performed Yes No -Type of Procedure Debridement -Clinical Debridement Subcutaneous -Tissue Removed Subcutaneous -Post Debridement (cm) - Length 5.5 -Post Debridement (cm) - Width 4 -Post Debridement (cm) - Depth 0.1 -Total Square (Post) (cm) 22.0 -Area of Debridement (cm) - Length 5.5 -Area of Debridement (cm) - Width 4 -Total Square (Area) (cm) 22.0 -Tunneling No No -Undermining/Tunneling No No -Circular Undermining No No -Wound/Ulcer Outcome Not Healed Not Healed -Ulcer Cleansing Rinsed/ Irrigated with Saline -Foul Odor after Cleansing No -Bioengineered Tissue No -Bleeding Controlled with Pressure -Offloading No -Treatment Response Procedure Tolerated Well -Debridement - Subq, 1st 20sq cm Yes -Debridement, SubQ, ea addt'l 20sq cm 1 or part thereof #5 L Post Knee -Time 11:29 11:26 -Correct Patient Yes Yes -Correct Side, Site, Position Yes Yes -Correct Procedure Yes Yes -Procedure Performed Yes Yes -Type of Procedure Debridement Debridement -Clinical Debridement Muscle / Fascia Subcutaneous -Tissue Removed Muscle Subcutaneous -Post Debridement (cm) - Length 2.4 2 -Post Debridement (cm) - Width 2 1.5 -Post Debridement (cm) - Depth 2.1 1.7 -Total Square (Post) (cm) 4.8 3.0 -Area of Debridement (cm) - Length 2.4 2 -Area of Debridement (cm) - Width 2 1.5 -Total Square (Area) (cm) 4.8 3.0 -Tunneling No No -Undermining/Tunneling No No -Circular Undermining No No -Wound/Ulcer Outcome Not Healed Not Healed -Ulcer Cleansing Rinsed/ Irrigated with Saline -Foul Odor after Cleansing No No -Bioengineered Tissue No No -Bleeding Controlled with Pressure Pressure -Offloading No No -Treatment Response Procedure Procedure Tolerated Well Tolerated Well -Debridement - Subq, 1st 20sq cm No Yes -Debridement - Muscle / Fascia, 1st No 20sq cm #3 left ischium -Time 11:32 11:26 -Correct Patient Yes Yes -Correct Side, Site, Position Yes Yes -Correct Procedure Yes Yes -Procedure Performed Yes Yes -Type of Procedure Debridement Debridement -Clinical Debridement Muscle / Fascia Muscle / Fascia -Tissue Removed Muscle Muscle,Fascia -Post Debridement (cm) - Length 8 6.7 -Post Debridement (cm) - Width 6 7 -Post Debridement (cm) - Depth 5.4 5 -Total Square (Post) (cm) 48 46.9 -Area of Debridement (cm) - Length 8 6.7 -Area of Debridement (cm) - Width 6 7 -Total Square (Area) (cm) 48 46.9 -Tunneling No No -Undermining/Tunneling No No -Circular Undermining No No -Wound/Ulcer Outcome Not Healed Not Healed -Ulcer Cleansing Rinsed/ Rinsed/ Irrigated with Irrigated with Saline Saline -Foul Odor after Cleansing No No -Bioengineered Tissue No No -Bleeding Controlled with Pressure Pressure -Offloading No No -Treatment Response Procedure Procedure Tolerated Well Tolerated Well -Debridement - Muscle / Fascia, 1st No Yes 20sq cm -Debridement, Muscle/Fascia, ea addt'l 4 20sq cm or part thereof #4 sacrum -Time 11:33 11:27 -Correct Patient Yes Yes -Correct Side, Site, Position Yes Yes -Correct Procedure Yes Yes -Procedure Performed Yes Yes -Type of Procedure Debridement Debridement -Clinical Debridement Muscle / Fascia Muscle / Fascia -Tissue Removed Muscle Muscle,Fascia -Post Debridement (cm) - Length 7 6 -Post Debridement (cm) - Width 7 7.3 -Post Debridement (cm) - Depth 4 3 -Total Square (Post) (cm) 49 43.8 -Area of Debridement (cm) - Length 7 6 -Area of Debridement (cm) - Width 7 7.3 -Total Square (Area) (cm) 49 43.8 -Tunneling No -Undermining/Tunneling No No -Circular Undermining No No -Wound/Ulcer Outcome Not Healed Not Healed -Ulcer Cleansing Rinsed/ Rinsed/ Irrigated with Irrigated with Saline Saline -Foul Odor after Cleansing No No -Bioengineered Tissue No No -Bleeding Controlled with Pressure Pressure -Offloading No No -Treatment Response Procedure Tolerated Well -Debridement - Muscle / Fascia, 1st Yes No 20sq cm -Debridement, Muscle/Fascia, ea addt'l 5 2 20sq cm or part thereof -Debridement - Bone, 1st 20sq cm No Pain Scale: 0-10 Numeric Is Patient Pain Free? Yes Yes WC - Nurse 3 - General Ulcer D/C NN Start: 01/07/21 10:31 Freq: Status: Active Protocol: Activity Type Activity Date Activity User E-Sign Co-Sign Detail Recorded Client Recorded Date Recorded By Document 01/07/21 12:03 KR [id number] 01/07/21 12:06 KR Document 01/21/21 11:56 [facility] [id number] 01/21/21 12:01 [facility] 01/07/21 01/21/21 12:03 11:56 Wound Care Nurse 3 6-right medial thigh cluster -Ulcer Cleansing Rinsed/ Rinsed/ Irrigated with Irrigated with Saline Saline -Foul Odor after Cleansing No -Primary Dressing Applied C Hydrogel ($), Mepilex Border, Mepilex Border NonAdherent Contact Layer, Other -Other Dressing hydrogel -Mepilex Border 1 2 #5 L Post Knee -Ulcer Cleansing Rinsed/ Rinsed/ Irrigated with Irrigated with Saline Saline -Foul Odor after Cleansing No -Primary Dressing Applied Other -Other Dressing moist to dry -Primary Dressing Covered/Secured with Dry Gauze, Dry Gauze, Secured with Secured with Tape Tape #3 left ischium -Ulcer Cleansing Soap and Water Rinsed/ Irrigated with Saline -Foul Odor after Cleansing No No -Primary Dressing Applied Other -Other Dressing moist gauze moist to dry -Primary Dressing Covered/Secured with Dry Gauze, Secured with Secured with Tape,Other Tape -Other Covering abd abd #4 sacrum -Ulcer Cleansing Soap and Water Rinsed/ Irrigated with Saline -Foul Odor after Cleansing No No -Primary Dressing Applied Other -Other Dressing moistgauze moist to dry -Primary Dressing Covered/Secured with Dry Gauze, Secured with Secured with Tape,Other Tape -Other Covering abd Treatment Response Procedure Procedure Tolerated Well Tolerated Well Pain Scale: 0-10 Numeric Is Patient Pain Free? Yes Yes WC - Visit Discharge Discharge Condition Stable Stable Ambulatory Status Wheelchair Wheelchair Transportation Private Auto Private Auto Accompanied by Facility Type Longterm [facility] Facility Orders Sent Yes Additional Wound Wound debrided: Left ischial ulcer Laterality: Left Wound Grade/Stage: Stage IV Type of Debridement: Excisional debridement Anesthesia Used: 4% Lidocaine Solution Depth: Down to and including healthy tissue, in the subcutaneous layer and to muscle Percentage of wound debrided: 100 Instrument Used: 7mm curette Tissue Removed: Subcutaneous tissue and slough into the muscle with bone exposure Severity: Fat Layer Exposed Amount of bleeding with debridement: Mild Bleeding Controlled with: Pressure and Compression and gauze Patient tolerated procedure: Patient tolerated procedure well Additional Wound Wound debrided: Posterior knee ulcer Laterality: Left Wound Grade/Stage: Stage IV Type of Debridement: Excisional debridement Anesthesia Used: 4% Lidocaine Solution Depth: Down to and including healthy tissue, in the subcutaneous layer and to muscle Percentage of wound debrided: 100 Instrument Used: 3mm curette Tissue Removed: Subcutaneous tissue and slough Severity: Fat Layer Exposed Amount of bleeding with debridement: Mild Bleeding Controlled with: Pressure Patient tolerated procedure: Patient tolerated procedure well Additional Wound Wound debrided: anterior thigh cluster Laterality: Right Type of Debridement: Excisional debridement Anesthesia Used: 4% Lidocaine Solution Depth: Down to and including healthy tissue and in the subcutaneous layer Percentage of wound debrided: 100 Instrument Used: 3mm curette Tissue Removed: Subcutaneous tissue and slough Severity: Limited To Skin Breakdown Amount of bleeding with debridement: Mild Bleeding Controlled with: Pressure Patient tolerated procedure: Patient tolerated procedure well Assessment/Plan Assessment/Plan (1) Sacral decubitus ulcer, stage IV: CODE(S): L89.154 - Pressure ulcer of sacral region, stage 4 (2) Pressure sore of left ischium, stage 4: CODE(S): L89.324 - Pressure ulcer of left buttock, stage 4 (3) Ulcer of left knee: CODE(S): L97.829 - Non-pressure chronic ulcer of other part of left lower leg with unspecified severity QUALIFIERS: Non-pressure ulcer stage: with fat layer exposed Qualified Code(s): L97.822 - Non-pressure chronic ulcer of other part of left lower leg with fat layer exposed (4) Other early complications of trauma: CODE(S): T79.8XXA - Other early complications of trauma, initial encounter (5) Soft tissue infection: CODE(S): L08.9 - Local infection of the skin and subcutaneous tissue, unspecified (6) Osteomyelitis of pelvis: CODE(S): M86.9 - Osteomyelitis, unspecified (7) Second degree burn of thigh: CODE(S): T24.219A - Burn of second degree of unspecified thigh, initial encounter (8) Paraplegia following spinal cord injury: CODE(S): G82.20 - Paraplegia, unspecified (9) Metastatic renal cell carcinoma to bone: CODE(S): C79.51 - Secondary malignant neoplasm of bone; C64.9 - Malignant neoplasm of unspecified kidney, except renal pelvis (10) Malignant neoplasm of unspecified kidney, except renal pelvis: CODE(S): C64.9 - Malignant neoplasm of unspecified kidney, except renal pelvis PLAN: Wound care - Wound VAC at 150 mmHg to left ischial ulcer and the left sacral ulcer with adaptic over the bone and left posterior knee with a Y-connector. Dressing to be changed 3 times per week. Right anterior thigh burn will continue Collagen hydrogel covered Mepilex dressing 3 x per week. Left anterior leg is healed. Wound culture of sacral ulcer 01/07/21 positive for Corynebacterium striatum, Streptococcus mitis/oralis, Enterococcus faecalis, Anaerobic cocci, Actinomyces bovis, Bacteroides caccae, Bacteroides thetaiotaomicron. She was started on Clindamycin and Augmentin along with probiotic to treat the wound culture. Wound culture of left posterior knee 11/19/20 positive for Staphylococcus aureus and Corynebacterium striatum. She completed Augmentin. She is doing a good job not sitting in her wheelchair for long periods of times. Follow up 2 weeks.
== END 2021-02-05 23:59 ==
LOC: WC 10:15
PROVIDERS: PCP Family Medicine; Referring Provider Nurse Practitioner Family; Visit Provider Nurse Practitioner Family
DX: L89.154 Pressure ulcer of sacral region, stage 4 (principal); L89.324 Pressure ulcer of left buttock, stage 4; L97.822 Non-pressure chronic ulcer of other part of left lower leg with fat layer exposed; T79.8XXA Other early complications of trauma, initial encounter; L08.9 Local infection of the skin and subcutaneous tissue, unspecified; M86.9 Osteomyelitis, unspecified; T24.219A Burn of second degree of unspecified thigh, initial encounter; G82.20 Paraplegia, unspecified; C79.51 Secondary malignant neoplasm of bone; C64.9 Malignant neoplasm of unspecified kidney, except renal pelvis; B95.2 Enterococcus as the cause of diseases classified elsewhere; Z87.440 Personal history of urinary (tract) infections
CPT/HCPCS: 11042; 11043; 11045; 11046; 87070; 87075; 87077; 87186; 87205

== ENCOUNTER 2021-02-25 10:30 | Outpatient (RCR) | payer MEDICARE, SELFPAY ==
[2021-02-06 00:28] VITALS: BP 95/55; PULSE 84; RESP 16; TEMP 36.4; BMI 22.9
[2021-02-11 10:34] VITALS: BP 86/56; PULSE 99; TEMP 36.8; BMI 22.9
--- NOTE | 2021-02-11 12:00 | PN.PCM_ITS ---
History of Present Illness Date of Service: 02/11/21 Chief Complaint: Sacral pressure sore, Stage IV, and left ischial pressure sore, Stage IV. History of Wound: 55 year old female with a history of renal cancer and metastasis to the bone presented [facility] with a sacral pressure sore and left ischial pressure sore. was admitted on 07/11/20 and discharged on 07/13/20 for sepsis related to an infected decubitus ulcer. She has been a paraplegic for 2.5 years after her back hardware broke. Her Oncologist is Dr. Valiente and she is on Cabometyx. Surgery on 09/19/20 for 1. Excision left ischial pressure sore, Stage IV, with partial ostectomy for osteomyelitis. 2. Excision sacral pressure sore, Stage IV. Discharged 09/26/20. New ulcer to left posterior knee caused by her urine leg bag rubbing against her skin. Her first noticed it a few days ago as a scabbing. Wound culture obtained 11/19/20 which was positive for Staphylococcus aureus and Corynebacterium striatum and is being treated with Augmentin. She obtained second degree ko on her anterior thighs bilaterally a several weeks ago when placing a rice pack that was too hot. They have been placing on triple antibiotic ointment and covering with ABD pads. Wound care - Discontinued Wound VAC because insurance states she is not making improvement. Dakins 0.25% to the left ischial ulcer and the left sacral ulcer and left posterior knee. Cover with gauze or ABD. Dressings to be changed daily. Right anterior thigh ulcer Collagen hydrogel covered with adaptic then gauze daily. Left anterior leg is healed. Wound culture of sacral ulcer 01/07/21 positive for Corynebacterium striatum, Streptococcus mitis/oralis, Enterococcus faecalis, Anaerobic cocci, Actinomyces bovis, Bacteroides caccae, Bacteroides thetaiotaomicron. She was started on Clindamycin and Augmentin along with probiotic to treat the wound culture. Wound culture of left posterior knee 11/19/20 positive for Staphylococcus aureus and Corynebacterium striatum. She has been started on Augmentin. Operative wound cultures: Ischial pressure sore tissue positive for Staphylococcus aureus, Streptococcus group G, Streptococcus mitis/oralis, Anaerobic cocci and Bacteroides pyogenes. Ischial bone culture Staphylococcus aureus, Enterococcus faecalis, Streptococcue mitis/oralis , Anaerobic cocci, and Bacteroides pyogenes. Sacral tissue positive Staphylococcus aureus, Streptococcus mitis/oralis, Anaerobic cocci and Bacteroides pyogenes. Vancomycin IV had to be stopped due elevated liver enzymes. The other IV antibiotics that would be sensitive would cost the patient too much per week and patient doesn't want placed in a facility for IV antibiotics. She decided to start Augmentin po, which will not have as good bone coverage as an IV antibiotics would have. She had been sitting in her wheelchair up to 12 hours a day while her is at work. They have someone come and help her out of bed in the morning and get her into her wheelchair. She has a new cushion on her wheelchair from the past several months. Wound culture was done on 07/24/20. The left ischial pressure sore was positive for Pseudomonas oryzihabitans and MRSE. The sacral pressure sore was positive for E.coli, Entercoccus faecalis, Methicillin resistant Staphylococcus haemolyticus. She was started Doxycycline, Cipro and Augmentin. She was hospitalized 12/27/20 - 01/01/21 for Septic shock and Acute complicated UTI which showed E. coli. She was treated with IV antibiotics while hospitalized and discharged home on Amoxicillin. Today she denies fever, chills and states she has a good appetite. Encourage nutritional supplementation with protein to help the healing process. Progress of Wound: Sacral, left ischial and left posterior knee ulcers are slightly improved. Right anterior/medial thigh is improved. Objective Data Objective Data Vital Signs: Vital Signs Temp Pulse Resp BP 98.3 F 99 16 86/56 L 02/11/21 10:34 02/11/21 10:34 02/06/21 00:28 02/11/21 10:34 Weight: 148 lb Body Mass Index (BMI) 22.9 Charges/Coding Addendum Addendum: 91454 right anterior/medial thigh ulcer Procedures Integumentary 111xxx-113xx: [id number] Jerilyn musc/fascia 20 sq cm/< (Left ischial, sacral and left posterio knee ulcers) Add On Codes: 39828 Jerilyn musc/fascia add-on (x5) Physical Exam Const alert and oriented x3 General Appearance: cooperative HEENT normocephalic Head and Scalp: atraumatic Eyes PERRL Lymph Lymphatic: no lymphedema noted Resp normal respiratory effort Cardio regular rate GI non-tender Palpation: soft Extremity normal capillary refill Skin Wound Narrative: Left ischial and sacral ulcers are into the muscle with bone exposure, both are beefy pink tissue. Left posterior knee ulcer is pink with some fat necrosis. Right anterior/medial thigh ulcer is improving and very superficial. Neuro CN's II-XII intact bilaterally Psych Appearance: grossly normal Debridement Note Debridement Note Wound debrided: ischial ulcer Laterality: Left Wound Grade/Stage: stage IV Type of Debridement: Excisional debridement Anesthesia Used: 4% Lidocaine Solution Depth: Down to and including healthy tissue, in the subcutaneous layer, to muscle and to bone Percentage of wound debrided: 100 Instrument Used: 5mm curette Tissue Removed: Subcutaneous tissue and slough into the muscle with bone exposure Severity: Fat Layer Exposed Amount of bleeding with debridement: Mild Bleeding Controlled with: Pressure Patient tolerated procedure: Patient tolerated procedure well Post-Debridement Measurements and Additional Note: Post-Debridement Measurements/Treatment BRITTA - Nurse 1 - General Ulcer Assessment Start: 02/11/21 10:34 Freq: Status: Active Protocol: YOLA Activity Type Activity Date Activity User E-Sign Co-Sign Detail Recorded Client Recorded Date Recorded By Document 02/11/21 10:34 DL [id number] 02/11/21 10:56 DL 02/11/21 10:34 - Today's Visit Information Type of service Follow-up Visit (Physician/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 Any new allergies or adverse reactions No Had a fall/change in ADL's that may No increase risk of falls Signs or symptoms of abuse and/or No neglect since last visit Have you been in the hospital since your No last visit? Has dressing in place as prescribed Yes Has compression in place as prescribed N/A Has offloadiing in place as prescribed Yes Experienced any changes in pain level or No management Pain Scale: 0-10 Numeric Is Patient Pain Free? Yes WC - Nurse 1 - General Ulcer Measurement Start: 02/11/21 10:34 Freq: Status: Active Protocol: Activity Type Activity Date Activity User E-Sign Co-Sign Detail Recorded Client Recorded Date Recorded By Document 02/11/21 10:34 DL [id number] 02/11/21 10:56 DL 02/11/21 10:34 Wound Center Nurse 1 6-right medial thigh cluster -Current Size (cm) - Length 1.2 -Current Size (cm) - Width 3.3 -Current Size (cm) - Depth 0.1 -Total Square Cm 3.96 -Photo Taken No -Exudate Amt None Present -Wound Margin Epibole -Granulation Amt Large (67-100%) -Granulation Quality [place] -Necrosis Amt None Present (0 %) -Structure Exposed N/A -Texture (Annamaria-wound Skin Appearance) Scarring -Moisture (Annamaria-wound Skin Appearance) No Abnormality -Color (Annamaria-wound Skin Appearance) No Abnormality -Tenderness on Palpation (Annamaria-wound Yes Skin Appearance) -Ulcer Cleansing Not Cleansed -Foul Odor after Cleansing No #5 L Post Knee -Current Size (cm) - Length 1.8 -Current Size (cm) - Width 1 -Current Size (cm) - Depth 2.3 -Total Square Cm 1.8 -Photo Taken No -Exudate Amt Medium -Exudate Type Serosanguineous -Wound Margin Distinct, Outline Attached -Granulation Amt Large (67-100%) -Granulation Quality Red -Necrosis Amt Small (1-33%) -Necrotic Tissue Type Adherent Slough -Structure Exposed N/A -Texture (Annamaria-wound Skin Appearance) Scarring -Moisture (Annamaria-wound Skin Appearance) No Abnormality -Ulcer Cleansing Soap and Water -Foul Odor after Cleansing No -Anesthetic Used 4% Lidocaine Solution #3 left ischium -Current Size (cm) - Length 8.4 -Current Size (cm) - Width 7 -Current Size (cm) - Depth 2.6 -Total Square Cm 58.8 -Photo Taken No -Exudate Amt Medium -Exudate Type Serosanguineous -Wound Margin Distinct, Outline Attached -Granulation Amt Medium (34-66%) -Granulation Quality Red -Necrosis Amt Medium (34-66%) -Necrotic Tissue Type Adherent Slough -Structure Exposed N/A -Texture (Annamaria-wound Skin Appearance) Scarring -Moisture (Annamaria-wound Skin Appearance) No Abnormality -Temperature (Annamaria-wound Skin No Abnormality Appearance) (Pt Warm) -Tenderness on Palpation (Annamaria-wound No Skin Appearance) -Ulcer Cleansing Soap and Water -Foul Odor after Cleansing No -Anesthetic Used 4% Lidocaine Solution #4 sacrum -Current Size (cm) - Length 6 -Current Size (cm) - Width 7 -Current Size (cm) - Depth 2.8 -Total Square Cm 42 -Photo Taken No -Exudate Amt Medium -Exudate Type Serosanguineous -Wound Margin Distinct, Outline Attached -Granulation Amt Medium (34-66%) -Granulation Quality Red -Necrosis Amt Medium (34-66%) -Necrotic Tissue Type Adherent Slough -Structure Exposed Bone -Texture (Annamaria-wound Skin Appearance) Scarring -Moisture (Annamaria-wound Skin Appearance) No Abnormality -Temperature (Annamaria-wound Skin No Abnormality Appearance) (Pt Warm) -Tenderness on Palpation (Annamaria-wound No Skin Appearance) -Ulcer Cleansing Soap and Water -Foul Odor after Cleansing No -Anesthetic Used 4% Lidocaine Solution WC - Nurse 2 - General Ulcer CM Notes Start: 02/11/21 10:34 Freq: Status: Active Protocol: Activity Type Activity Date Activity User E-Sign Co-Sign Detail Recorded Client Recorded Date Recorded By Document 02/11/21 11:03 [id number] 02/11/21 11:19 ESTRELLA 02/11/21 11:03 Wound Center Nurse 2 6-right medial thigh cluster -Time 11:06 -Correct Patient Yes -Correct Side, Site, Position Yes -Correct Procedure Yes -Procedure Performed Yes -Type of Procedure Debridement -Clinical Debridement Subcutaneous -Tissue Removed Subcutaneous -Post Debridement (cm) - Length 1.0 -Post Debridement (cm) - Width 4.8 -Post Debridement (cm) - Depth 0.1 -Total Square (Post) (cm) 4.80 -Area of Debridement (cm) - Length 1.0 -Area of Debridement (cm) - Width 4.8 -Total Square (Area) (cm) 4.80 -Tunneling No -Undermining/Tunneling No -Circular Undermining No -Wound/Ulcer Outcome Not Healed -Ulcer Cleansing Rinsed/ Irrigated with Saline -Foul Odor after Cleansing No -Bioengineered Tissue No -Bleeding Controlled with Pressure -Offloading No -Treatment Response Procedure Tolerated Well -Debridement - Subq, 1st 20sq cm Yes #5 L Post Knee -Time 11:08 -Correct Patient Yes -Correct Side, Site, Position Yes -Correct Procedure Yes -Procedure Performed Yes -Type of Procedure Debridement -Clinical Debridement Muscle / Fascia -Tissue Removed Muscle,Fascia -Post Debridement (cm) - Length 1.7 -Post Debridement (cm) - Width 1.7 -Post Debridement (cm) - Depth 2 -Total Square (Post) (cm) 2.89 -Area of Debridement (cm) - Length 1.7 -Area of Debridement (cm) - Width 1.7 -Total Square (Area) (cm) 2.89 -Tunneling No -Undermining/Tunneling No -Circular Undermining No -Wound/Ulcer Outcome Not Healed -Ulcer Cleansing Rinsed/ Irrigated with Saline -Foul Odor after Cleansing No -Bioengineered Tissue No -Bleeding Controlled with Pressure -Offloading No -Treatment Response Procedure Tolerated Well -Debridement - Muscle / Fascia, 1st No 20sq cm #3 left ischium -Time 11:09 -Correct Patient Yes -Correct Side, Site, Position Yes -Correct Procedure Yes -Procedure Performed Yes -Type of Procedure Debridement -Clinical Debridement Muscle / Fascia -Tissue Removed Muscle,Fascia -Post Debridement (cm) - Length 8 -Post Debridement (cm) - Width 7 -Post Debridement (cm) - Depth 2.8 -Total Square (Post) (cm) 56 -Area of Debridement (cm) - Length 8 -Area of Debridement (cm) - Width 7 -Total Square (Area) (cm) 56 -Tunneling No -Undermining/Tunneling No -Circular Undermining No -Wound/Ulcer Outcome Not Healed -Ulcer Cleansing Rinsed/ Irrigated with Saline -Foul Odor after Cleansing No -Bioengineered Tissue No -Bleeding Controlled with Pressure -Offloading No -Treatment Response Procedure Tolerated Well -Debridement - Muscle / Fascia, 1st Yes 20sq cm -Debridement, Muscle/Fascia, ea addt'l 5 20sq cm or part thereof #4 sacrum -Time 11:13 -Correct Patient Yes -Correct Side, Site, Position Yes -Correct Procedure Yes -Procedure Performed Yes -Type of Procedure Debridement -Clinical Debridement Muscle / Fascia -Tissue Removed Muscle,Fascia -Post Debridement (cm) - Length 6.5 -Post Debridement (cm) - Width 7 -Post Debridement (cm) - Depth 2.3 -Total Square (Post) (cm) 45.5 -Area of Debridement (cm) - Length 6.5 -Area of Debridement (cm) - Width 7 -Total Square (Area) (cm) 45.5 -Tunneling Yes -Tunneling Position (O'clock) 12 -Tunneling Distance (cm) 3.1 -Undermining/Tunneling No -Circular Undermining No -Wound/Ulcer Outcome Not Healed -Ulcer Cleansing Rinsed/ Irrigated with Saline -Foul Odor after Cleansing No -Bioengineered Tissue No -Bleeding Controlled with Pressure -Offloading No -Treatment Response Procedure Tolerated Well -Debridement - Muscle / Fascia, 1st No 20sq cm Pain Scale: 0-10 Numeric Is Patient Pain Free? Yes WC - Nurse 3 - General Ulcer D/C NN Start: 02/11/21 10:34 Freq: Status: Active Protocol: Activity Type Activity Date Activity User E-Sign Co-Sign Detail Recorded Client Recorded Date Recorded By Document 02/11/21 11:42 DL [id number] 02/11/21 11:45 DL 02/11/21 11:42 Wound Care Nurse 3 6-right medial thigh cluster -Ulcer Cleansing Rinsed/ Irrigated with Saline -Foul Odor after Cleansing No -Primary Dressing Applied NonAdherent Contact Layer -Other Dressing hydrogel -Primary Dressing Covered/Secured with Dry Gauze, Secured with Tape #5 L Post Knee -Ulcer Cleansing Rinsed/ Irrigated with Saline -Foul Odor after Cleansing No -Other Dressing dakins -Primary Dressing Covered/Secured with Dry Gauze, Secured with Tape #3 left ischium -Ulcer Cleansing Rinsed/ Irrigated with Saline -Foul Odor after Cleansing No -Other Dressing dakins -Primary Dressing Covered/Secured with Dry Gauze, Secured with Tape #4 sacrum -Ulcer Cleansing Rinsed/ Irrigated with Saline -Foul Odor after Cleansing No -Other Dressing dakins -Primary Dressing Covered/Secured with Dry Gauze, Secured with Tape Treatment Response Procedure Tolerated Well Pain Scale: 0-10 Numeric Is Patient Pain Free? Yes WC - Visit Discharge Discharge Condition Stable Ambulatory Status Wheelchair Transportation Private Auto Facility Type Home Health Orders Sent Yes Additional Wound Wound debrided: sacral ulcer Wound Grade/Stage: Stage IV Type of Debridement: Excisional debridement Anesthesia Used: 4% Lidocaine Solution Depth: Down to and including healthy tissue, in the subcutaneous layer, to muscle and to bone Percentage of wound debrided: 100 Instrument Used: 5mm curette Tissue Removed: Subcutaneous tissue and slough into the muscle with bone exposure Severity: Fat Layer Exposed Amount of bleeding with debridement: Mild Bleeding Controlled with: Pressure and Compression and gauze Patient tolerated procedure: Patient tolerated procedure well Additional Wound Wound debrided: posterior knee ulcer Laterality: Left Wound Grade/Stage: stage IV Type of Debridement: Excisional debridement Anesthesia Used: 4% Lidocaine Solution Depth: Down to and including healthy tissue, in the subcutaneous layer and to muscle Percentage of wound debrided: 100 Instrument Used: 3mm curette Tissue Removed: Subcutaneous tissue and slough into the muscle. Severity: Fat Layer Exposed Amount of bleeding with debridement: Mild Bleeding Controlled with: Pressure Additional Wound Wound debrided: anterior/medial thigh ulcer Laterality: Right Type of Debridement: Excisional debridement Anesthesia Used: 4% Lidocaine Solution Depth: Down to and including healthy tissue and in the subcutaneous layer Percentage of wound debrided: 100 Instrument Used: 3mm curette Tissue Removed: Subcutaneous tissue and slough Severity: Fat Layer Exposed Amount of bleeding with debridement: Mild Bleeding Controlled with: Pressure Patient tolerated procedure: Patient tolerated procedure well Assessment/Plan Assessment/Plan (1) Sacral decubitus ulcer, stage IV: CODE(S): L89.154 - Pressure ulcer of sacral region, stage 4 (2) Pressure sore of left ischium, stage 4: CODE(S): L89.324 - Pressure ulcer of left buttock, stage 4 (3) Ulcer of left knee: CODE(S): L97.829 - Non-pressure chronic ulcer of other part of left lower leg with unspecified severity QUALIFIERS: Non-pressure ulcer stage: with fat layer exposed Qualified Code(s): L97.822 - Non-pressure chronic ulcer of other part of left lower leg with fat layer exposed (4) Other early complications of trauma: CODE(S): T79.8XXA - Other early complications of trauma, initial encounter (5) Soft tissue infection: CODE(S): L08.9 - Local infection of the skin and subcutaneous tissue, unspecified (6) Osteomyelitis of pelvis: CODE(S): M86.9 - Osteomyelitis, unspecified (7) Second degree burn of thigh: CODE(S): T24.219A - Burn of second degree of unspecified thigh, initial encounter (8) Paraplegia following spinal cord injury: CODE(S): G82.20 - Paraplegia, unspecified (9) Metastatic renal cell carcinoma to bone: CODE(S): C79.51 - Secondary malignant neoplasm of bone; C64.9 - Malignant neoplasm of unspecified kidney, except renal pelvis PLAN: Wound care - Dakins 0.25% moistened gauze covered with gauze or ABD to left ischial ulcer and the left sacral ulcer and left posterior knee daily. Right anterior thigh burn will continue Collagen hydrogel covered Mepilex dressing 3 x per week. Left anterior leg is healed. Wound culture of sacral ulcer 01/07/21 positive for Corynebacterium striatum, Streptococcus mitis/oralis, Enterococcus faecalis, Anaerobic cocci, Actinomyces bovis, Bacteroides caccae, Bacteroides thetaiotaomicron. She was started on Clindamycin and Augmentin along with probiotic to treat the wound culture, which she has completed. Wound culture of left posterior knee 11/19/20 positive for Staphylococcus aureus and Corynebacterium striatum. She completed Augmentin. She is doing a good job not sitting in her wheelchair for long periods of times. Follow up 2 weeks.
[2021-02-25 10:33] VITALS: BP 88/52; PULSE 90; RESP 16; TEMP 35.9; BMI 22.9
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
== END 2021-03-08 23:59 ==
LOC: WC 10:30
PROVIDERS: PCP Family Medicine; Referring Provider Nurse Practitioner Family; Visit Provider Nurse Practitioner Family
DX: L97.822 Non-pressure chronic ulcer of other part of left lower leg with fat layer exposed (principal); L89.324 Pressure ulcer of left buttock, stage 4; L89.154 Pressure ulcer of sacral region, stage 4; G82.20 Paraplegia, unspecified; M86.9 Osteomyelitis, unspecified; T79.8XXA Other early complications of trauma, initial encounter; T24.219A Burn of second degree of unspecified thigh, initial encounter; C79.51 Secondary malignant neoplasm of bone; L08.9 Local infection of the skin and subcutaneous tissue, unspecified; Z85.528 Personal history of other malignant neoplasm of kidney; Z87.440 Personal history of urinary (tract) infections; B95.2 Enterococcus as the cause of diseases classified elsewhere; B95.4 Other streptococcus as the cause of diseases classified elsewhere
CPT/HCPCS: 11042; 11043; 11046

== ENCOUNTER 2021-04-08 11:15 | Outpatient (RCR) | payer MEDICARE, SELFPAY ==
[2021-03-09 00:27] VITALS: BP 88/52; PULSE 90; RESP 16; TEMP 35.9; BMI 22.9
[2021-03-11 11:04] VITALS: BP 99/62; PULSE 85; RESP 16; TEMP 36.5; BMI 22.9
--- NOTE | 2021-03-11 13:07 | PN.PCM_ITS ---
History of Present Illness Date of Service: 03/11/21 Chief Complaint: Sacral pressure sore, Stage IV, and left ischial pressure sore, Stage IV. History of Wound: 55 year old female with a history of renal cancer and metastasis to the bone [facility] with a sacral pressure sore and left ischial pressure sore. was admitted on 07/11/20 and discharged on 07/13/20 for sepsis related to an infected decubitus ulcer. She has been a paraplegic for 2.5 years after her back hardware broke. Her Oncologist is Dr. Valiente and she is on Cabometyx. Surgery on 09/19/20 for 1. Excision left ischial pressure sore, Stage IV, with partial ostectomy for osteomyelitis. 2. Excision sacral pressure sore, Stage IV. Discharged 09/26/20. Ulcer to left posterior knee caused by her urine leg bag rubbing against her skin. Her first noticed it a few days ago as a scabbing. Wound culture obtained 11/19/20 which was positive for Staphylococcus aureus and Corynebacterium striatum and is being treated with Augmentin. She obtained second degree ko on her anterior thighs bilaterally a several weeks ago when placing a rice pack that was too hot. They have been placing on triple antibiotic ointment and covering with ABD pads. Wound care - Dakins 0.25% to the left ischial ulcer and the left sacral ulcer and left posterior knee. Cover with gauze or ABD. Dressings to be changed daily. Right anterior thigh ulcer Collagen hydrogel covered with adaptic then gauze daily. Left anterior leg is healed. Wound culture of sacral ulcer 01/07/21 positive for Corynebacterium striatum, Streptococcus mitis/oralis, Enterococcus faecalis, Anaerobic cocci, Actinomyces bovis, Bacteroides caccae, Bacteroides thetaiotaomicron. She was started on Clindamycin and Augmentin along with probiotic to treat the wound culture. Wound culture of left posterior knee 11/19/20 positive for Staphylococcus aureus and Corynebacterium striatum. She has been started on Augmentin. Operative wound cultures: Ischial pressure sore tissue positive for Staphylococcus aureus, Streptococcus group G, Streptococcus mitis/oralis, Anaerobic cocci and Bacteroides pyogenes. Ischial bone culture Staphylococcus aureus, Enterococcus faecalis, Streptococcue mitis/oralis , Anaerobic cocci, and Bacteroides pyogenes. Sacral tissue positive Staphylococcus aureus, Streptococcus mitis/oralis, Anaerobic cocci and Bacteroides pyogenes. Vancomycin IV had to be stopped due elevated liver enzymes. The other IV ant ibiotics that would be sensitive would cost the patient too much per week and patient doesn't want placed in a facility for IV antibiotics. She decided to start Augmentin po, which will not have as good bone coverage as an IV antibiotics would have. She had been sitting in her wheelchair up to 12 hours a day while her is at work. They have someone come and help her out of bed in the morning and get her into her wheelchair. She has a new cushion on her wheelchair from the past several months. Wound culture was done on 07/24/20. The left ischial pressure sore was positive for Pseudomonas oryzihabitans and MRSE. The sacral pressure sore was positive for E.coli, Entercoccus faecalis, Methicillin resistant Staphylococcus haemolyticus. She was started Doxycycline, Cipro and Augmentin. She was hospitalized 12/27/20 - 01/01/21 for Septic shock and Acute complicated UTI which showed E. coli. She was treated with IV antibiotics while hospitalized and discharged home on Amoxicillin. Today she denies fever, chills and states she has a good appetite. Encourage nutritional supplementation with protein to help the healing process. Progress of Wound: Ulcers are all stable. They are beefy pink. Objective Data Objective Data Vital Signs: Vital Signs Temp Pulse Resp BP 97.7 F L 85 16 99/62 03/11/21 11:04 03/11/21 11:04 03/11/21 11:04 03/11/21 11:04 Oxygen Delivery Method Room Air Weight: 148 lb Body Mass Index (BMI) 22.9 Charges/Coding Procedures Integumentary 111xxx-113xx: 89219 Jerilyn musc/fascia 20 sq cm/< Add On Codes: 20507 Jerilyn subq tissue add-on (x5) Physical Exam Const alert and oriented x3 General Appearance: cooperative HEENT normocephalic Head and Scalp: atraumatic Lymph Lymphatic: no lymphedema noted Resp normal respiratory effort Cardio regular rate GI non-tender Palpation: soft Extremity normal capillary refill General Extremity: Negative for edema Skin Wound Narrative: Left ischial and sacral ulcers are beefy pink, they are into the muscle with bone exposure. Her annamaria wound is stable. Left posterior knee ulcer is into the muscle and pink. Neuro CN's II-XII intact bilaterally Psych Appearance: grossly normal Debridement Note Debridement Note Wound debrided: ischial ulcer Laterality: Left Wound Grade/Stage: Stage IV Type of Debridement: Excisional debridement Anesthesia Used: 4% Lidocaine Solution Depth: Down to and including healthy tissue, in the subcutaneous layer, to muscle and to bone Percentage of wound debrided: 100 Instrument Used: 7mm curette Tissue Removed: Subcutaneous tissue and slough into the muscle with bone exposure Severity: Fat Layer Exposed Amount of bleeding with debridement: Mild Bleeding Controlled with: Pressure and Compression and gauze Patient tolerated procedure: Patient tolerated procedure well Post-Debridement Measurements and Additional Note: Post-Debridement Measurements/Treatment - Nurse 1 - General Ulcer Assessment Start: 03/11/21 11:04 Freq: Status: Active Protocol: .LOWEXT Activity Type Activity Date Activity User E-Sign Co-Sign Detail Recorded Client Recorded Date Recorded By Document 03/11/21 11:04 [facility] [id number] 03/11/21 11:17 [facility] 03/11/21 11:04 - Today's Visit Information Type of service Follow-up Visit (Physician/CLINICAL PRODUCT MANAGER ) Arrival Mode Wheelchair Transfer Assistance Manual Transfer Assist (Other) transfers Accompanied by husb Patient Identification Verified (Name & Yes ) Patient Requires Transmission-Based No Precautions Height and Weight Body Mass Index (BMI) 22.9 BMI Classification Normal Vital Signs Temperature (97.8 F-99.1 F) 97.7 F L Temperature Source Temporal Pulse Rate (60-100) 85 Pulse Location Monitor Respiratory Rate (12-18) 16 Respiratory rate source Observation Oxygen Delivery Method Room Air Blood Pressure (90/60-120/80) 99/62 Blood Pressure Mean (mm Hg) 74 Source Monitor Position Sitting Blood Pressure Location Left Arm History Since Last Visit- (Skip if this is Patient's initial visit) Have you changed medications since your No last visit? Any new allergies or adverse reactions No Had a fall/change in ADL's that may No increase risk of falls Signs or symptoms of abuse and/or No neglect since last visit Have you been in the hospital since your No last visit? Has dressing in place as prescribed Yes Has compression in place as prescribed N/A Has offloadiing in place as prescribed N/A Experienced any changes in pain level or No management Left Footwear Regular Shoe Right Footwear Regular Shoe Pain Scale: 0-10 Numeric Is Patient Pain Free? Yes WC - Nurse 1 - General Ulcer Measurement Start: 03/11/21 11:04 Freq: Status: Active Protocol: Activity Type Activity Date Activity User E-Sign Co-Sign Detail Recorded Client Recorded Date Recorded By Document 03/11/21 11:04 [facility] [id number] 03/11/21 11:17 [facility] 03/11/21 11:04 Wound Center Nurse 1 #5 L Post Knee -Combined with other wound No -Current Size (cm) - Length 1.5 -Current Size (cm) - Width 1.5 -Current Size (cm) - Depth 1.7 -Total Square Cm 2.25 -Photo Taken No -Epithelialization Small 1-33% -Tunneling No -Undermining/Tunneling No -Circular Undermining No -Exudate Amt Medium -Exudate Type Serosanguineous -Wound Margin Distinct, Outline Attached -Granulation Amt Large (67-100%) -Granulation Quality Red -Slough/Fibrin No -Necrosis Amt None Present (0 %) -Texture (Annamaria-wound Skin Appearance) Assessed, Scarring -Moisture (Annamaria-wound Skin Appearance) Assessed -Color (Annamaria-wound Skin Appearance) Assessed -Temperature (Annamaria-wound Skin No Abnormality Appearance) (Pt Warm) -Tenderness on Palpation (Annamaria-wound No Skin Appearance) -Ulcer Cleansing Rinsed/ Irrigated with Saline -Foul Odor after Cleansing No #3 left ischium -Combined with other wound No -Current Size (cm) - Length 7.5 -Current Size (cm) - Width 3.4 -Current Size (cm) - Depth 2.5 -Total Square Cm 25.50 -Photo Taken No -Epithelialization None Present -Tunneling No -Undermining/Tunneling Yes -Undermining/Tunneling Starts (O'clock 10 ) -Undermining/Tunneling Ends (O'clock) 3 -Maximum Distance (cm) 3.2 -Circular Undermining No -Exudate Amt Large -Exudate Type Serosanguineous -Wound Margin Distinct, Outline Attached -Granulation Amt Large (67-100%) -Granulation Quality Red -Slough/Fibrin Yes -Necrosis Amt Small (1-33%) -Necrotic Tissue Type Adherent Slough -Texture (Annamaria-wound Skin Appearance) Assessed, Scarring -Moisture (Annamaria-wound Skin Appearance) Assessed -Color (Annamaria-wound Skin Appearance) Assessed -Temperature (Annamaria-wound Skin No Abnormality Appearance) (Pt Warm) -Tenderness on Palpation (Annamaria-wound No Skin Appearance) -Ulcer Cleansing Rinsed/ Irrigated with Saline -Foul Odor after Cleansing No #4 sacrum -Combined with other wound No -Current Size (cm) - Length 6 -Current Size (cm) - Width 5.8 -Current Size (cm) - Depth 2.1 -Total Square Cm 34.8 -Photo Taken No -Epithelialization None Present -Tunneling No -Undermining/Tunneling Yes -Undermining/Tunneling Starts (O'clock 11 ) -Undermining/Tunneling Ends (O'clock) 1 -Maximum Distance (cm) 2.3 -Circular Undermining No -Exudate Amt Large -Exudate Type Serosanguineous -Wound Margin Distinct, Outline Attached -Granulation Amt Large (67-100%) -Granulation Quality Red -Slough/Fibrin Yes -Necrosis Amt Small (1-33%) -Necrotic Tissue Type Adherent Slough -Structure Exposed Bone -Texture (Annamaria-wound Skin Appearance) Assessed, Scarring -Moisture (Annamaria-wound Skin Appearance) Assessed -Color (Annamaria-wound Skin Appearance) Assessed -Temperature (Annamaria-wound Skin No Abnormality Appearance) (Pt Warm) -Tenderness on Palpation (Annamaria-wound No Skin Appearance) -Ulcer Cleansing Rinsed/ Irrigated with Saline -Foul Odor after Cleansing No WC - Nurse 2 - General Ulcer CM Notes Start: 03/11/21 11:04 Freq: Status: Active Protocol: Activity Type Activity Date Activity User E-Sign Co-Sign Detail Recorded Client Recorded Date Recorded By Document 03/11/21 11:42 ESTRELLA [id number] 03/11/21 11:50 ESTRELLA 03/11/21 11:42 Wound Center Nurse 2 #5 L Post Knee -Time 11:47 -Correct Patient Yes -Correct Side, Site, Position Yes -Correct Procedure Yes -Procedure Performed Yes -Type of Procedure Debridement -Clinical Debridement Muscle / Fascia -Tissue Removed Muscle -Post Debridement (cm) - Length 1.7 -Post Debridement (cm) - Width 1.5 -Post Debridement (cm) - Depth 2.3 -Total Square (Post) (cm) 2.55 -Area of Debridement (cm) - Length 1.7 -Area of Debridement (cm) - Width 1.5 -Total Square (Area) (cm) 2.55 -Tunneling No -Undermining/Tunneling No -Circular Undermining No -Wound/Ulcer Outcome Not Healed -Ulcer Cleansing Rinsed/ Irrigated with Saline -Foul Odor after Cleansing No -Bioengineered Tissue No -Bleeding Controlled with Pressure -Offloading No -Treatment Response Procedure Tolerated Well -Debridement - Muscle / Fascia, 1st No 20sq cm #3 left ischium -Time 11:43 -Correct Patient Yes -Correct Side, Site, Position Yes -Correct Procedure Yes -Procedure Performed Yes -Type of Procedure Debridement -Clinical Debridement Muscle / Fascia -Tissue Removed Muscle,Fascia -Post Debridement (cm) - Length 7.0 -Post Debridement (cm) - Width 7.0 -Post Debridement (cm) - Depth 2.8 -Total Square (Post) (cm) 49.00 -Area of Debridement (cm) - Length 7.0 -Area of Debridement (cm) - Width 7.0 -Total Square (Area) (cm) 49.00 -Tunneling No -Undermining/Tunneling Yes -Undermining/Tunneling Starts (O'clock 10 ) -Undermining/Tunneling Ends (O'clock) 2 -Maximum Distance (cm) 3.7 -Circular Undermining No -Wound/Ulcer Outcome Not Healed -Ulcer Cleansing Rinsed/ Irrigated with Saline -Foul Odor after Cleansing No -Bioengineered Tissue No -Bleeding Controlled with Pressure -Offloading No -Treatment Response Procedure Tolerated Well -Debridement - Muscle / Fascia, 1st No 20sq cm #4 sacrum -Time 11:43 -Correct Patient Yes -Correct Side, Site, Position Yes -Correct Procedure Yes -Procedure Performed Yes -Type of Procedure Debridement -Clinical Debridement Muscle / Fascia -Tissue Removed Muscle,Fascia -Post Debridement (cm) - Length 7.0 -Post Debridement (cm) - Width 7.0 -Post Debridement (cm) - Depth 2.4 -Total Square (Post) (cm) 49.00 -Area of Debridement (cm) - Length 7.0 -Area of Debridement (cm) - Width 7.0 -Total Square (Area) (cm) 49.00 -Tunneling Yes -Tunneling Position (O'clock) 12 -Tunneling Distance (cm) 4.2 -Undermining/Tunneling No -Circular Undermining No -Wound/Ulcer Outcome Not Healed -Ulcer Cleansing Rinsed/ Irrigated with Saline -Foul Odor after Cleansing No -Bioengineered Tissue No -Bleeding Controlled with Pressure -Offloading No -Treatment Response Procedure Tolerated Well -Debridement - Muscle / Fascia, 1st Yes 20sq cm -Debridement, Muscle/Fascia, ea addt'l 5 20sq cm or part thereof Pain Scale: 0-10 Numeric Is Patient Pain Free? Yes WC - Nurse 3 - General Ulcer D/C NN Start: 03/11/21 11:04 Freq: Status: Active Protocol: Activity Type Activity Date Activity User E-Sign Co-Sign Detail Recorded Client Recorded Date Recorded By Document 03/11/21 12:03 CLARA [id number] 03/11/21 12:05 CLARA 03/11/21 12:03 Wound Care Nurse 3 #5 L Post Knee -Ulcer Cleansing Rinsed/ Irrigated with Saline -Foul Odor after Cleansing No -Negative Pressure Wound Therapy N/A -Other Dressing wet to dry -Primary Dressing Covered/Secured with Dry Gauze, Secured with Tape #3 left ischium -Ulcer Cleansing Rinsed/ Irrigated with Saline -Foul Odor after Cleansing No -Negative Pressure Wound Therapy N/A -Other Dressing Wet to dry ABD -Primary Dressing Covered/Secured with Secured with Tape #4 sacrum -Ulcer Cleansing Rinsed/ Irrigated with Saline -Foul Odor after Cleansing No -Negative Pressure Wound Therapy N/A -Other Dressing Wet to dry ABD -Primary Dressing Covered/Secured with Secured with Tape WC - Visit Discharge Discharge Condition Stable Ambulatory Status Wheelchair Transportation Private Auto Medication Reconcilliation completed & No provided to patient/care provider Clinical Summary of Care Provided Yes Additional Wound Wound debrided: sacral ulcer Laterality: Not Applicable Wound Grade/Stage: Stage IV Type of Debridement: Excisional debridement Anesthesia Used: 4% Lidocaine Solution Depth: Down to and including healthy tissue, in the subcutaneous layer, to muscle and to bone Percentage of wound debrided: 100 Instrument Used: 7mm curette Tissue Removed: Subcutaneous tissue and slough into the muscle with bone exposur e Severity: Fat Layer Exposed Amount of bleeding with debridement: Mild Bleeding Controlled with: Pressure and Compression and gauze Patient tolerated procedure: Patient tolerated procedure well Additional Wound Wound debrided: posterior knee ulcer Laterality: Left Wound Grade/Stage: Stage IV Type of Debridement: Selective debridement Anesthesia Used: 4% Lidocaine Solution Depth: Down to and including healthy tissue, in the subcutaneous layer and to muscle Percentage of wound debrided: 100 Instrument Used: 3mm curette Tissue Removed: Subcutaneous tissue and slough into the muscle. Severity: Fat Layer Exposed Amount of bleeding with debridement: Mild Bleeding Controlled with: Pressure Patient tolerated procedure: Patient tolerated procedure well Assessment/Plan Assessment/Plan (1) Pressure sore of left ischium, stage 4: CODE(S): L89.324 - Pressure ulcer of left buttock, stage 4 (2) Sacral decubitus ulcer, stage IV: CODE(S): L89.154 - Pressure ulcer of sacral region, stage 4 (3) Ulcer of left knee: CODE(S): L97.829 - Non-pressure chronic ulcer of other part of left lower leg with unspecified severity QUALIFIERS: Non-pressure ulcer stage: with fat layer exposed Qualified Code(s): L97.822 - Non-pressure chronic ulcer of other part of left lower leg with fat layer exposed (4) Osteomyelitis of pelvis: CODE(S): M86.9 - Osteomyelitis, unspecified (5) Paraplegia following spinal cord injury: CODE(S): G82.20 - Paraplegia, unspecified PLAN: Wound care - Dakins 0.25% moistened gauze covered with Karamax or ABD super absorber dressing to left ischial ulcer and the left sacral ulcer and left posterior knee daily. Right and left anterior thigh burn are healed. Wound culture of sacral ulcer 01/07/21 positive for Corynebacterium striatum, Streptococcus mitis/oralis, Enterococcus faecalis, Anaerobic cocci, Actinomyces bovis, Bacteroides caccae, Bacteroides thetaiotaomicron. She was started on Clindamycin and Augmentin along with probiotic to treat the wound culture, which she has completed. Wound culture of left posterior knee 11/19/20 positive for Staphylococcus aureus and Corynebacterium striatum. She completed Augmentin. She has been sitting in her wheelchair for over 8 hours a day. The sacral ulcer has increased non viable tissue, most likely related to too much pressure. She tries to off load and shift frequently, but her wheelchair does not allow her to lie down to completely off load. She has the chronic osteomyelitis that maybe contributing to the non healing ulcer in addition to her compromised immune system with her history of renal cell carcinoma with mets to the bone. Stressed with both the patient and her that she needs to be off loading from her sacral and left ischial ulcers as much as possible. If she could spend more time out of her wheelchair that would be beneficial. Follow up 2 weeks.
--- NOTE | 2021-03-27 15:03 | WC ---
Patient's called concerned that patient has a new pressure ulcer to right ischium that is not looking good. It appears to be warm to touch and worsening. He has been using Dakin's gauze and patient has had fever intermittently but states with her paralysis, this isn't new. Advised that if he feels it needs addressed, to take her to the ER for evaluation. No further calls have been made by her HH nurse for updates. Gene the states it's not draining but has gotten bigger to a quarter size ulcer and not sure if she can wait till Thursday to be seen. Will discuss this with Desiree Aguilar about possible admittence.
[2021-04-02 10:31] VITALS: BP 84/49; PULSE 85; RESP 16; BMI 22.9
[2021-04-08 11:22] VITALS: BP 76/46; PULSE 90; RESP 16; TEMP 35.8; BMI 22.9
--- NOTE | 2021-04-08 11:42 | PCM.WC.PN ---
History of Present Illness Date of Service: 04/08/21 Chief Complaint: Sacral pressure sore, Stage IV, and left ischial pressure sore, Stage IV. History of Wound: 55 year old female with a history of renal cancer and metastasis to the bone presented [facility] with a sacral pressure sore and left ischial pressure sore. was admitted on 07/11/20 and discharged on 07/13/20 for sepsis related to an infected decubitus ulcer. She has been a paraplegic for 2.5 years after her back hardware broke. Her Oncologist is Dr. Valiente and she is on Cabometyx. Surgery on 09/19/20 for 1. Excision left ischial pressure sore, Stage IV, with partial ostectomy for osteomyelitis. 2. Excision sacral pressure sore, Stage IV. Discharged 09/26/20. Ulcer to left posterior knee caused by her urine leg bag rubbing against her skin. Her first noticed it as scab. Wound culture obtained 11/19/20 which was positive for Staphylococcus aureus and Corynebacterium striatum and is being treated with Augmentin. She obtained second degree ko on her anterior thighs bilaterally when placing a rice pack that was too hot, they have since healed. Wound care - Dakins 0.25% to the left ischial ulcer and the left sacral ulcer and left posterior knee. Cover with gauze or ABD. Dressings to be changed daily. Right anterior thigh ulcer Collagen hydrogel covered with adaptic then gauze daily. Left anterior leg is healed. Wound culture of new right ischial ulcer from 04/02/21 done during a nurse visit was positive for Corynebacterium striatum and Enterococcus faecalis. She has not been treated for this at this time. She is being sent to the ED for further evaluation of this ulcer because of the need for possible operative debridement. Wound culture of sacral ulcer 01/07/21 positive for Corynebacterium striatum, Streptococcus mitis/oralis, Enterococcus faecalis, Anaerobic cocci, Actinomyces bovis, Bacteroides caccae, Bacteroides thetaiotaomicron. She was started on Clindamycin and Augmentin along with probiotic to treat the wound culture. Wound culture of left posterior knee 11/19/20 positive for Staphylococcus aureus and Corynebacterium striatum. She has been started on Augmentin. Operative wound cultures: Ischial pressure sore tissue positive for Staphylococcus aureus, Streptococcus group G, Streptococcus mitis/oralis, Anaerobic cocci and Bacteroides pyogenes. Ischial bone culture Staphylococcus aureus, Enterococcus faecalis, Streptococcue mitis/oralis , Anaerobic cocci, and Bacteroides pyogenes. Sacral tissue positive Staphylococcus aureus, Streptococcus mitis/oralis, Anaerobic cocci and Bacteroides pyogenes. Vancomycin IV had to be stopped due elevated liver enzymes. The other IV antibiotics that would be sensitive would cost the patient too much per week and patient doesn't want placed in a facility for IV antibiotics. She decided to start Augmentin po, which will not have as good bone coverage as an IV antibiotics would have. She had been sitting in her wheelchair up to 12 hours a day while her is at work. They have someone come and help her out of bed in the morning and get her into her wheelchair. She has a new cushion on her wheelchair from the past several months. Wound culture was done on 07/24/20. The left ischial pressure sore was positive for Pseudomonas oryzihabitans and MRSE. The sacral pressure sore was positive for E.coli, Entercoccus faecalis, Methicillin resistant Staphylococcus haemolyticus. She was started Doxycycline, Cipro and Augmentin. She was hospitalized 12/27/20 - 01/01/21 for Septic shock and Acute complicated UTI which showed E. coli. She was treated with IV antibiotics while hospitalized and discharged home on Amoxicillin. Today she denies fever, chills at this time but has had them on and off recently. Encourage nutritional supplementation with protein to help the healing process. Progress of Wound: Left posterior knee ulcer is improved in diameter, although there continues to be some depth to it. The left ischial and sacral ulcers are beefy pink, less bone exposure. There is a skin bridge these two ulcers that has a tunnel under the bridge. She has new Stage IV ulcer to the right ischial that has a significant amount of non viable tissue that most likely needs surgical debridement. Objective Data Objective Data Vital Signs: Vital Signs Temp Pulse Resp BP 96.4 F L 90 16 76/46 L 04/08/21 11:22 04/08/21 11:22 04/08/21 11:22 04/08/21 11:22 Oxygen Delivery Method Room Air Weight: 148 lb Body Mass Index (BMI) 22.9 Lab / Micro Data Micro: Microbiology 04/02/21 10:15 Wound Abcess - Ischium Gram Stain - Final 04/02/21 10:15 Wound Abcess - Ischium Wound Culture - Final Corynebacterium striatum Enterococcus faecalis 04/02/21 10:15 Wound Abcess - Ischium Anaerobic Culture - Final No anaerobic bacteria isolated. Charges/Coding Addendum Addendum: [id number] left posterior knee Procedures Integumentary 111xxx-113xx: [id number] Jerilyn musc/fascia 20 sq cm/< (left and right ischium and sacrum ulcer) Add On Codes: 30478 Jerilyn musc/fascia add-on (x7) Physical Exam Const alert and oriented x3 Constitutional Narrative: She does not look well today. General Appearance: cooperative HEENT normocephalic Head and Scalp: atraumatic Eyes PERRL Resp normal respiratory effort Cardio regular rate GI non-tender Palpation: soft Extremity normal to inspection Skin Wound Narrative: Left posterior knee ulcer is improved in diameter, although there continues to be some depth to it. The left ischial and sacral ulcers are beefy pink, less bone exposure. There is a skin bridge these two ulcers that has a tunnel under the bridge. She has new Stage IV ulcer to the right ischial that has a significant amount of non viable tissue that most likely needs surgical debridement. Neuro CN's II-XII intact bilaterally Psych Appearance: well kempt Debridement Note Debridement Note Wound debrided: ischial ulcer Laterality: Left Wound Grade/Stage: stage IV Type of Debridement: Excisional debridement Anesthesia Used: 4% Lidocaine Solution Depth: Down to and including healthy tissue, in the subcutaneous layer and to muscle Percentage of wound debrided: 100 Instrument Used: 7mm curette Tissue Removed: Subcutaneous tissue and slough into the muscle. There is bone exposure. Severity: Fat Layer Exposed Amount of bleeding with debridement: Mild Bleeding Controlled with: Pressure Patient tolerated procedure: Patient tolerated procedure well Post-Debridement Measurements and Additional Note: Post-Debridement Measurements/Treatment - Nurse 1 - General Ulcer Assessment Start: 03/11/21 11:04 Freq: Status: Active Protocol: YOLA Activity Type Activity Date Activity User E-Sign Co-Sign Detail Recorded Client Recorded Date Recorded By Document 03/11/21 11:04 [facility] [id number] 03/11/21 11:17 [facility] Document 04/02/21 10:31 [facility] [id number] 04/02/21 10:37 [facility] Document 04/08/21 11:22 [facility] [id number] 04/08/21 11:42 [facility] 03/11/21 04/02/21 04/08/21 11:04 10:31 11:22 - Today's Visit Information Type of service Follow-up Visit Nurse-only Follow-up Visit (Physician/DATABASE ADMINISTRATION ASSOCIATE Visit (Physician/DATABASE ADMINISTRATION ASSOCIATE ) ) Arrival Mode Wheelchair Wheelchair Wheelchair Transfer Assistance Manual None Manual,Other Transfer Assist (Other) husbands transfers transfers Accompanied by husb Patient Identification Verified (Name & Yes Yes Yes ) Patient Requires Transmission-Based No No No Precautions Height and Weight Body Mass Index (BMI) 22.9 22.9 22.9 BMI Classification Normal Normal Normal Vital Signs Temperature (97.8 F-99.1 F) 97.7 F L 96.4 F L Temperature Source Temporal Temporal Pulse Rate (60-100) 85 85 90 Pulse Location Monitor Monitor Monitor Respiratory Rate (12-18) 16 16 16 Respiratory rate source Observation Observation Observation Oxygen Delivery Method Room Air Room Air Room Air Blood Pressure (90/60-120/80) 99/62 84/49 L 76/46 L Blood Pressure Mean (mm Hg) 74 60 56 Source Monitor Monitor Monitor Position Sitting Sitting Sitting Blood Pressure Location Left Arm Left Arm Left Arm Comment PT BP ALWAYS LOW PER PT & HUSB. PARAPLEGIC. History Since Last Visit- (Skip if this is Patient's initial visit) Have you changed medications since your No No No last visit? Any new allergies or adverse reactions No No No Had a fall/change in ADL's that may No No No increase risk of falls Signs or symptoms of abuse and/or No No No neglect since last visit Have you been in the hospital since your No No No last visit? Has dressing in place as prescribed Yes Yes Yes Has compression in place as prescribed N/A N/A Has offloadiing in place as prescribed N/A N/A N/A Experienced any changes in pain level or No No No management Left Footwear Regular Shoe Regular Shoe Regular Shoe Right Footwear Regular Shoe Regular Shoe Regular Shoe Pain Scale: 0-10 Numeric Is Patient Pain Free? Yes Yes Yes - Nurse 1 - General Ulcer Measurement Start: 03/11/21 11:04 Freq: Status: Active Protocol: Activity Type Activity Date Activity User E-Sign Co-Sign Detail Recorded Client Recorded Date Recorded By Document 03/11/21 11:04 [facility] [id number] 03/11/21 11:17 [facility] Document 04/02/21 10:31 [facility] [id number] 04/02/21 10:37 BM Document 04/08/21 11:22 [facility] [id number] 04/08/21 11:42 BMF 03/11/21 04/02/21 04/08/21 11:04 10:31 11:22 Wound Center Nurse 1 #7- R ISCHIAL -Combined with other wound No -Current Size (cm) - Length 6.5 -Current Size (cm) - Width 6.6 -Current Size (cm) - Depth 0.9 -Total Square Cm 42.90 -Photo Taken No -Epithelialization None Present -Tunneling No -Undermining/Tunneling No -Circular Undermining No -Exudate Amt Large -Exudate Type Serosanguineous -Wound Margin Distinct, Outline Attached -Granulation Amt Small (1-33%) -Granulation Quality Red -Slough/Fibrin Yes -Necrosis Amt Large (67-100%) -Necrotic Tissue Type Adherent Slough -Texture (Annamaria-wound Skin Appearance) Assessed, Fluctuance -Moisture (Annamaria-wound Skin Appearance) Assessed -Color (Annamaria-wound Skin Appearance) Assessed, Erythema -Temperature (Annamaria-wound Skin No Abnormality Appearance) (Pt Warm) -Tenderness on Palpation (Annamaria-wound No Skin Appearance) -Ulcer Cleansing Soap and Water -Foul Odor after Cleansing No #7 R ISCHIAL -Combined with other wound No -Current Size (cm) - Length 5.5 -Current Size (cm) - Width 3.5 -Current Size (cm) - Depth 0.5 -Total Square Cm 19.25 -Date of Last Picture (Recall this 04/02/21 field) -Photo Taken Yes -Epithelialization None Present -Tunneling No -Undermining/Tunneling No -Circular Undermining No -Exudate Amt Large -Exudate Type Serosanguineous -Wound Margin Distinct, Outline Attached -Granulation Amt None Present (0 %) -Slough/Fibrin Yes -Necrosis Amt Small (1-33%) -Necrotic Tissue Type Adherent Slough -Texture (Annamaria-wound Skin Appearance) Assessed -Moisture (Annamaria-wound Skin Appearance) Assessed -Color (Annamaria-wound Skin Appearance) Erythema -Temperature (Annamaria-wound Skin No Abnormality Appearance) (Pt Warm) -Tenderness on Palpation (Annamaria-wound No Skin Appearance) -Ulcer Cleansing Soap and Water -Foul Odor after Cleansing No -Wound Comment(s) PT HERE FOR NV TO EVAL NEW R ISCHIAL WOUND. CM JOSE ALFREDO ASSESSED. DR JUNIOR HERE AND UPDATED. WOUND CULTURES OBTAINED. PT INSTRUCTED TO USE DAKINS TO NEW WOUND, WASH W/ ANTIBACTERIAL SOAP W/ EA DRSG CHG, GO TO ER FOR WORSENING, AND CALL [facility] W/ ANY QUESTIONS. #5 L Post Knee -Combined with other wound No No -Current Size (cm) - Length 1.5 0.8 -Current Size (cm) - Width 1.5 0.7 -Current Size (cm) - Depth 1.7 1.7 -Total Square Cm 2.25 0.56 -Date of Last Picture (Recall this 04/08/21 field) -Photo Taken No Yes -Epithelialization Small 1-33% Small 1-33% -Tunneling No No -Undermining/Tunneling No No -Circular Undermining No No -Exudate Amt Medium -Exudate Type Serosanguineous -Wound Margin Distinct, Outline Attached -Granulation Amt Large (67-100%) Large (67-100%) -Granulation Quality Red Red -Slough/Fibrin No No -Necrosis Amt None Present (0 None Present (0 %) %) -Texture (Annamaria-wound Skin Appearance) Assessed, Assessed, Scarring Scarring -Moisture (Annamaria-wound Skin Appearance) Assessed Assessed -Color (Annamaria-wound Skin Appearance) Assessed Assessed -Temperature (Annamaria-wound Skin No Abnormality No Abnormality Appearance) (Pt Warm) (Pt Warm) -Tenderness on Palpation (Annamaria-wound No No Skin Appearance) -Ulcer Cleansing Rinsed/ Soap and Water Irrigated with Saline -Foul Odor after Cleansing No No #3 left ischium -Combined with other wound No No -Current Size (cm) - Length 7.5 9.5 -Current Size (cm) - Width 3.4 9.5 -Current Size (cm) - Depth 2.5 3.2 -Total Square Cm 25.50 90.25 -Date of Last Picture (Recall this 04/08/21 field) -Photo Taken No Yes -Epithelialization None Present None Present -Tunneling No No -Undermining/Tunneling Yes Yes -Undermining/Tunneling Starts (O'clock 10 10 ) -Undermining/Tunneling Ends (O'clock) 3 2 -Maximum Distance (cm) 3.2 3 -Circular Undermining No -Exudate Amt Large Large -Exudate Type Serosanguineous Serosanguineous -Wound Margin Distinct, Distinct, Outline Outline Attached Attached -Granulation Amt Large (67-100%) Medium (34-66%) -Granulation Quality Red Red -Slough/Fibrin Yes Yes -Necrosis Amt Small (1-33%) Medium (34-66%) -Necrotic Tissue Type Adherent Slough Adherent Slough -Structure Exposed Bone -Texture (Annamaria-wound Skin Appearance) Assessed, Assessed, Scarring Scarring -Moisture (Annamaria-wound Skin Appearance) Assessed Assessed -Color (Annamaria-wound Skin Appearance) Assessed Assessed -Temperature (Annamaria-wound Skin No Abnormality No Abnormality Appearance) (Pt Warm) (Pt Warm) -Tenderness on Palpation (Annamaria-wound No No Skin Appearance) -Ulcer Cleansing Rinsed/ Soap and Water Irrigated with Saline -Foul Odor after Cleansing No No #4 sacrum -Combined with other wound No No -Current Size (cm) - Length 6 6.5 -Current Size (cm) - Width 5.8 7.4 -Current Size (cm) - Depth 2.1 0.5 -Total Square Cm 34.8 48.10 -Date of Last Picture (Recall this 04/08/21 field) -Photo Taken No Yes -Epithelialization None Present None Present -Tunneling No No -Undermining/Tunneling Yes Yes -Undermining/Tunneling Starts (O'clock 11 3 ) -Undermining/Tunneling Ends (O'clock) 1 4 -Maximum Distance (cm) 2.3 3 -Circular Undermining No -Exudate Amt Large Large -Exudate Type Serosanguineous Serosanguineous -Wound Margin Distinct, Distinct, Outline Outline Attached Attached -Granulation Amt Large (67-100%) Medium (34-66%) -Granulation Quality Red Red -Slough/Fibrin Yes -Necrosis Amt Small (1-33%) -Necrotic Tissue Type Adherent Slough -Structure Exposed Bone -Texture (Annamaria-wound Skin Appearance) Assessed, Assessed, Scarring Scarring -Moisture (Annamaria-wound Skin Appearance) Assessed Assessed -Color (Annamaria-wound Skin Appearance) Assessed Assessed -Temperature (Annamaria-wound Skin No Abnormality No Abnormality Appearance) (Pt Warm) (Pt Warm) -Tenderness on Palpation (Annamaria-wound No No Skin Appearance) -Ulcer Cleansing Rinsed/ Soap and Water Irrigated with Saline -Foul Odor after Cleansing No No WC - Nurse 2 - General Ulcer CM Notes Start: 03/11/21 11:04 Freq: Status: Active Protocol: Activity Type Activity Date Activity User E-Sign Co-Sign Detail Recorded Client Recorded Date Recorded By Document 03/11/21 11:42 ESTRELLA [id number] 03/11/21 11:50 ESTRELLA 03/11/21 11:42 Wound Center Nurse 2 #5 L Post Knee -Time 11:47 -Correct Patient Yes -Correct Side, Site, Position Yes -Correct Procedure Yes -Procedure Performed Yes -Type of Procedure Debridement -Clinical Debridement Muscle / Fascia -Tissue Removed Muscle -Post Debridement (cm) - Length 1.7 -Post Debridement (cm) - Width 1.5 -Post Debridement (cm) - Depth 2.3 -Total Square (Post) (cm) 2.55 -Area of Debridement (cm) - Length 1.7 -Area of Debridement (cm) - Width 1.5 -Total Square (Area) (cm) 2.55 -Tunneling No -Undermining/Tunneling No -Circular Undermining No -Wound/Ulcer Outcome Not Healed -Ulcer Cleansing Rinsed/ Irrigated with Saline -Foul Odor after Cleansing No -Bioengineered Tissue No -Bleeding Controlled with Pressure -Offloading No -Treatment Response Procedure Tolerated Well -Debridement - Muscle / Fascia, 1st No 20sq cm #3 left ischium -Time 11:43 -Correct Patient Yes -Correct Side, Site, Position Yes -Correct Procedure Yes -Procedure Performed Yes -Type of Procedure Debridement -Clinical Debridement Muscle / Fascia -Tissue Removed Muscle,Fascia -Post Debridement (cm) - Length 7.0 -Post Debridement (cm) - Width 7.0 -Post Debridement (cm) - Depth 2.8 -Total Square (Post) (cm) 49.00 -Area of Debridement (cm) - Length 7.0 -Area of Debridement (cm) - Width 7.0 -Total Square (Area) (cm) 49.00 -Tunneling No -Undermining/Tunneling Yes -Undermining/Tunneling Starts (O'clock 10 ) -Undermining/Tunneling Ends (O'clock) 2 -Maximum Distance (cm) 3.7 -Circular Undermining No -Wound/Ulcer Outcome Not Healed -Ulcer Cleansing Rinsed/ Irrigated with Saline -Foul Odor after Cleansing No -Bioengineered Tissue No -Bleeding Controlled with Pressure -Offloading No -Treatment Response Procedure Tolerated Well -Debridement - Muscle / Fascia, 1st No 20sq cm #4 sacrum -Time 11:43 -Correct Patient Yes -Correct Side, Site, Position Yes -Correct Procedure Yes -Procedure Performed Yes -Type of Procedure Debridement -Clinical Debridement Muscle / Fascia -Tissue Removed Muscle,Fascia -Post Debridement (cm) - Length 7.0 -Post Debridement (cm) - Width 7.0 -Post Debridement (cm) - Depth 2.4 -Total Square (Post) (cm) 49.00 -Area of Debridement (cm) - Length 7.0 -Area of Debridement (cm) - Width 7.0 -Total Square (Area) (cm) 49.00 -Tunneling Yes -Tunneling Position (O'clock) 12 -Tunneling Distance (cm) 4.2 -Undermining/Tunneling No -Circular Undermining No -Wound/Ulcer Outcome Not Healed -Ulcer Cleansing Rinsed/ Irrigated with Saline -Foul Odor after Cleansing No -Bioengineered Tissue No -Bleeding Controlled with Pressure -Offloading No -Treatment Response Procedure Tolerated Well -Debridement - Muscle / Fascia, 1st Yes 20sq cm -Debridement, Muscle/Fascia, ea addt'l 5 20sq cm or part thereof Pain Scale: 0-10 Numeric Is Patient Pain Free? Yes WC - Nurse 3 - General Ulcer D/C NN Start: 03/11/21 11:04 Freq: Status: Active Protocol: Activity Type Activity Date Activity User E-Sign Co-Sign Detail Recorded Client Recorded Date Recorded By Document 03/11/21 12:03 [facility] [id number] 03/11/21 12:05 [facility] Document 04/02/21 10:31 [facility] [id number] 04/02/21 10:37 BMF 03/11/21 04/02/21 12:03 10:31 Wound Care Nurse 3 #7- R ISCHIAL -Ulcer Cleansing Soap and Water -Foul Odor after Cleansing No -Primary Dressing Applied Other -Other Dressing MOIST TO DRY DRSG -Primary Dressing Covered/Secured with Secured with Tape,Other -Other Covering ABD #5 L Post Knee -Ulcer Cleansing Rinsed/ Irrigated with Saline -Foul Odor after Cleansing No -Negative Pressure Wound Therapy N/A -Other Dressing wet to dry -Primary Dressing Covered/Secured with Dry Gauze, Secured with Tape #3 left ischium -Ulcer Cleansing Rinsed/ Irrigated with Saline -Foul Odor after Cleansing No -Negative Pressure Wound Therapy N/A -Other Dressing Wet to dry ABD -Primary Dressing Covered/Secured with Secured with Tape #4 sacrum -Ulcer Cleansing Rinsed/ Irrigated with Saline -Foul Odor after Cleansing No -Negative Pressure Wound Therapy N/A -Other Dressing Wet to dry ABD -Primary Dressing Covered/Secured with Secured with Tape Treatment Response Procedure Tolerated Well Vital Signs Pulse Rate (60-100) 85 Pulse Location Monitor Respiratory Rate (12-18) 16 Respiratory rate source Observation Oxygen Delivery Method Room Air Blood Pressure (90/60-120/80) 84/49 L Blood Pressure Mean (mm Hg) 60 Source Monitor Position Sitting Blood Pressure Location Left Arm Comment PT BP ALWAYS LOW PER PT & HUSB. PARAPLEGIC. Pain Scale: 0-10 Numeric Is Patient Pain Free? Yes WC - Visit Discharge Discharge Condition Stable Stable Ambulatory Status Wheelchair Wheelchair Transportation Private Auto Private Auto Accompanied by Medication Reconcilliation completed & No provided to patient/care provider Clinical Summary of Care Provided Yes Additional Wound Wound debrided: Sacral ulcer Laterality: Not Applicable Wound Grade/Stage: stage IV Type of Debridement: Excisional debridement Anesthesia Used: 4% Lidocaine Solution Depth: Down to and including healthy tissue, in the subcutaneous layer and to muscle Percentage of wound debrided: 100 Instrument Used: 7mm curette Tissue Removed: Subcutaneous tissue and slough into the muscle with bone exposure Severity: Fat Layer Exposed Amount of bleeding with debridement: Mild Bleeding Controlled with: Pressure Patient tolerated procedure: Patient tolerated procedure well Additional Wound Wound debrided: posterior knee ulcer Laterality: Left Wound Grade/Stage: stage IV Type of Debridement: Excisional debridement Anesthesia Used: 4% Lidocaine Solution Depth: Down to and including healthy tissue and in the subcutaneous layer Percentage of wound debrided: 100 Instrument Used: 3mm curette Tissue Removed: Subcutaneous tissue and slough. Severity: Fat Layer Exposed Amount of bleeding with debridement: Mild Bleeding Controlled with: Pressure Patient tolerated procedure: Patient tolerated procedure well Additional Wound Wound debrided: ischial ulcer Laterality: Right Wound Grade/Stage: Stage IV Type of Debridement: Excisional debridement Anesthesia Used: 4% Lidocaine Solution Depth: Down to and including healthy tissue, in the subcutaneous layer and to muscle Percentage of wound debrided: 100 Instrument Used: 7mm curette Tissue Removed: Subcutaneous tissue into the muscle. Unable to remove most necrotic tissue Severity: Fat Layer Exposed Amount of bleeding with debridement: Mild Bleeding Controlled with: Pressure Patient tolerated procedure: Patient tolerated procedure well Operative Diagnosis: Large amount of non viable tissue unable to be removed from sq debridement Assessment/Plan Assessment/Plan (1) Decubitus ulcer of right ischium, stage 4: CODE(S): L89.314 - Pressure ulcer of right buttock, stage 4 (2) Pressure sore of left ischium, stage 4: CODE(S): L89.324 - Pressure ulcer of left buttock, stage 4 (3) Ulcer of left knee: CODE(S): L97.829 - Non-pressure chronic ulcer of other part of left lower leg with unspecified severity QUALIFIERS: Non-pressure ulcer stage: with fat layer exposed Qualified Code(s): L97.822 - Non-pressure chronic ulcer of other part of left lower leg with fat layer exposed (4) Sacral decubitus ulcer, stage IV: CODE(S): L89.154 - Pressure ulcer of sacral region, stage 4 (5) Osteomyelitis of pelvis: CODE(S): M86.9 - Osteomyelitis, unspecified (6) Paraplegia following spinal cord injury: CODE(S): G82.20 - Paraplegia, unspecified (7) Malignant neoplasm of unspecified kidney, except renal pelvis: CODE(S): C64.9 - Malignant neoplasm of unspecified kidney, except renal pelvis (8) Metastatic renal cell carcinoma to bone: CODE(S): C79.51 - Secondary malignant neoplasm of bone; C64.9 - Malignant neoplasm of unspecified kidney, except renal pelvis PLAN: She has new stage IV on her right ischium that has significant amount of necrotic tissue that is unable to be debrided with subcutaneous debridement. She also does not look well and was running a fever a week ago. I spoke with Dr. Mullen and sent him a picture via secure cortext and recommends that she go to the ED for further evaluation and possible admission for operative debridement. I phoned the ED and spoke with Dr. Christian to discuss the patient with him. I discussed that she had a wound culture last week of her right ischium that was positive for corynebacterium striatum and enterococcus faecalis which she has not been treated for. Wound care - will place saline moistened gauze dressing and cover with ABD on all of her ulcers. Instructed her to go to the ED for further evaluation. Both she and her verbalized understanding. She will follow up at the wound center after her discharge.
== END 2021-04-08 23:59 ==
LOC: WC 11:15
PROVIDERS: PCP Family Medicine; Referring Provider Nurse Practitioner Family; Visit Provider Nurse Practitioner Family
DX: L89.324 Pressure ulcer of left buttock, stage 4 (principal); C79.51 Secondary malignant neoplasm of bone; L89.154 Pressure ulcer of sacral region, stage 4; L89.134 Pressure ulcer of right lower back, stage 4; L89.314 Pressure ulcer of right buttock, stage 4; L89.144 Pressure ulcer of left lower back, stage 4; G82.20 Paraplegia, unspecified; L97.822 Non-pressure chronic ulcer of other part of left lower leg with fat layer exposed; M86.9 Osteomyelitis, unspecified; C64.9 Malignant neoplasm of unspecified kidney, except renal pelvis; R74.8 Abnormal levels of other serum enzymes
CPT/HCPCS: 11042; 11043; 11046; 29445; 87070; 87075; 87077; 87186; 87205; 99212; G0463

== ENCOUNTER 2021-04-08 12:49 | Inpatient (IN) | payer MEDICARE, SELFPAY ==
[2021-04-08 12:50] VITALS: BP 73/53; PULSE 92; RESP 16; TEMP 35.7; O2SAT 93; BMI 20.9
[2021-04-08 12:53] VITALS: BP 73/53; PULSE 92; RESP 16; TEMP 35.7; O2SAT 93
[2021-04-08 14:52] LABS: Absolute Lymphocyte Count 1.23 X10^3/uL (0.83-4.51); Absolute Neutrophil Count 6.1 X10^3/uL (2.0-7.7); Basophil# 0.02 X10^3/uL; Basophil% 0.2 % (0-1); Eosinophils% 2.4 % (0-5); Hematocrit 26.9 % (37-47); Hemoglobin 7.7 g/dL (12.0-15.0); Lymphocyte # 1.23 X10^3/ul (0.83-4.51); Lymphocyte % 14.9 % (19-41); Mean Corp Hgb Conc 28.6 g/dL (32-36); Mean Corpuscular Volume 76.9 fL (81-99); Mean Platelet Vol. 8.7 fl (6.2-12.0); Monocyte# 0.59 X10^3/uL; Monocyte% 7.2 % (0-10); NRBC Flagged by Analyzer 0 % (0-5); Neutrophil # 6.14 X10^3/uL (2.7-7.7); Neutrophil % 74.6 % (47-70); Platelet Count 480 K/mm3 (150-450); RBC Distribution Width CV 19.9 % (11.6-14.6); RBC Distribution Width SD 55.4 fl (35.1-43.9); White Blood Count 8.2 K/mm3 (4.4-11.0)
[2021-04-08 15:05] LABS: International Normalized Ratio 1.8; Prothrombin Time (Protime)PT. 20.1 SECONDS (11.7-14.9)
[2021-04-08 15:07] LABS: ALB/GLOB Ratio 0.4 RATIO (0.9-2.4); AST(SGOT) 11 U/L (15-37); Alanine Aminotransfer ALT/SGPT 9 U/L (13-56); Albumin, Serum 1.7 g/dL (3.2-5.0); Alkaline Phosphatase 129 U/L (45-117); Anion Gap 6 (5-15); BUN 11 mg/dL (7-18); BUN/Creat Ratio 27.3 RATIO (10-20); Calcium,Total 8.1 mg/dL (8.5-10.1); Chloride 103 mmol/L (98-107); EST Glomerular Filtration Rate 173 mL/min (>60); Est Glom Filt Rate - Afr Amer 209 mL/min (>60); Estimated Creatinine Clearance 144.45 ml/min; Globulin 4.3 g/dL (2.2-4.2); Glucose 102 mg/dL (74-106); Potassium 3.7 mmol/L (3.5-5.1); Sodium Level 138 mmol/L (136-145)
[2021-04-08] MEDS: 0.9% Normal Saline 1,000 ML 999 ML IV (15:20)
--- NOTE | 2021-04-08 15:28 | EX.ED.DYSGE1 ---
HPI History of Present Illness Chief Complaint: Wound Informant: patient and spouse/S.O. Narrative Narrative: 55-year-old female presenting to the emergency department after being referred here from the wound center. Patient has a history of paraplegia following spinal cord injury. She has had decubitus ulcer that she sees the wound center for. Recently another one has come up. That was cultured last week that grew out Corynebacterium. Patient was seen in follow-up today and felt that this would probably require surgical debridement. Dr. Mullen was contacted and the patient was sent to emergency for admission. Patient admits to subjective fever but mostly chills. She notes her blood pressure is typically 80 systolic. notes that they have been very diligent about keeping the wound out so clean and if therefore not needed a diverting colostomy. [facility] Medical History Acute renal failure KELLEE (acute kidney injury) Atelectasis of left lung Cancer Cardiology follow-up encounter Chronic pain syndrome Easy bruising Encephalopathy acute Excessive bleeding Fever Gastric reflux History of irregular heartbeat History of migraine History of non-ST elevation myocardial infarction (NSTEMI) (01/28/19) Immunocompromised state Indwelling urethral catheter present Low iron Malignant neoplasm of unspecified kidney, except renal pelvis Metastatic renal cell carcinoma to bone Non-ischemic cardiomyopathy Non-smoker Nonobstructive atherosclerosis of coronary artery Paralysis Paraplegia following spinal cord injury Post-menopausal Pressure sore of left ischium, stage 4 Pulmonary embolism Rheumatoid arthritis Right pulmonary embolus (01/28/19) Sacral decubitus ulcer, stage IV Sepsis Sepsis Septic shock (01/29/19) Single kidney Takotsubo syndrome Thyroid disease Uses wheelchair Home Medications temazepam 30 mg PO QHS 12/12/18 [History Last Taken 04/07/21] apixaban 5 mg PO BID 02/07/19 [History Last Taken 04/08/21] acyclovir 400 mg tablet 400 mg PO DAILY tab 08/19/19 [History Last Taken 04/08/21] furosemide 20 mg tablet 20 mg PO BID tab 08/19/19 [History Last Taken 04/08/21] methadone 5 mg tablet 10 mg PO QHS tab 08/19/19 [History Last Taken 04/07/21] oxycodone 10 mg tablet 10 mg PO TID PRN PRN 08/19/19 [History Last Taken 04/07/21] baclofen 5 mg tablet 7.5 mg PO BID tab 11/16/19 [History Last Taken 04/08/21] gabapentin 100 mg capsule 100 mg PO BID 11/16/19 [History Last Taken 04/08/21] gabapentin 300 mg capsule 300 mg PO QHS cap 11/16/19 [History Last Taken 04/07/21] calcium carbonate [Calcium 500] 500 mg PO DAILY 07/11/20 [History Last Taken 04/08/21] cholecalciferol (vitamin D3) 25 mcg PO DAILY 07/11/20 [History Last Taken 04/08/21] levothyroxine [Euthyrox] 75 mcg PO MOTUWETHFRSA 07/11/20 [History Last Taken 04/08/21] levothyroxine [Euthyrox] 150 mcg PO PLASCENCIA 07/11/20 [History Last Taken 04/07/21] melatonin 20 mg PO QHS 07/11/20 [History Last Taken 04/07/21] methadone 15 mg PO DAILY 07/11/20 [History Last Taken 04/08/21] polyethylene glycol 3350 17 g PO QODAY 07/11/20 [History Last Taken 04/07/21] bisacodyl [Dulcolax (bisacodyl)] 5 mg PO QODAY 04/08/21 [History Last Taken 04/07/21] carvedilol 3.125 mg PO BID 04/08/21 [History Last Taken 04/08/21] potassium chloride 20 meq PO TID 04/08/21 [History Last Taken 04/08/21] Allergy/AdvReac Type Severity Reaction Status Date / Time ondansetron [From Zofran] AdvReac HEADACHE, Verified 04/08/21 12:50 SEVERE Family History Mother Lung cancer Father Lung cancer Surgical History History of cholecystectomy History of left heart catheterization (01/31/19) History of right nephrectomy (03/30/13) History of spinal surgery (2018) History of surgery History of vascular access device Social History household members: spouse housing: house Smoking Status: Never smoker alcohol intake: never substance use type: does not use ROS ROS ED Constitutional Constitutional ED: Reports chills, fever(s) and subjective; Denies weight loss Eyes Eyes: Denies change in vision or diplopia ENT ENT ED: Denies ear pain, rhinorrhea or sore throat Cardiovascular Cardiovascular: Denies chest pain, orthopnea, palpitations or racing heartbeat Respiratory/Chest Respiratory/Chest: Denies cough, dyspnea or orthopnea Gastrointestinal Gastrointestinal: Denies abdominal pain, diarrhea, nausea or vomiting Genitourinary Genitourinary ED: Denies dysuria, hematuria or urinary frequency Musculoskeletal Musculoskeletal: Denies arthralgias or myalgias Integumentary Reports other Details: Chronic decubitus ulcers ; Denies abscess or rash Neurologic Neurologic: Denies headache(s) or weakness Psychiatric Psychiatric: Denies anxiety, depression, suicidal ideation or suicidal thoughts Endocrine Endocrinology: Denies polydipsia, polyphagia or polyuria Allergic/Immunologic Allergic/Immunologic ED: Denies mouth swelling, tongue swelling or urticaria EXAM Physical Exam Const Vital Signs: 04/08/21 12:50 04/08/21 12:53 Temperature 96.3 F L 96.3 F L Temperature Source Temporal Temporal Pulse Rate 92 92 Respiratory Rate 16 16 Blood Pressure 73/53 L 73/53 L Blood Pressure Mean 59 59 Pulse Ox 93 93 Oxygen Delivery Method Room Air Room Air Positive well nourished and well developed General Appearance ED: well developed HEENT Reports normocephalic, head/scalp atraumatic and moist mucous membranes Eyes PERRL and EOMs intact bilaterally Neck no lymphadenopathy, supple and no JVD Resp normal respiratory effort and clear to auscultation bilaterally Cardio regular rate, regular rhythm and no murmurs GI normal to inspection, nondistended, normoactive bowel sounds and non-tender Palpation: soft Back/Spine no CVA tenderness and normal ROM Extremity normal to inspection General Extremety ED: Negative for edema General Extremity: Negative for edema Neuro oriented x3 and CN's II-XII intact bilaterally Sensorium / Orientation: alert Psych mental status grossly normal Mood & Affect: Negative for depressed or tearful Skin no rashes or lesions noted MDM MDM MDM Narrative Medical decision making narrative: Patient received IV fluids and basic blood work was obtained. Chronic anemia at 7.7 white count is 8.2. CMP showed a glucose of 102 alk phos 129. Blood cultures were obtained patient received a dose of vancomycin. Hospitalist was contacted for admission Lab Data Attestation: I reviewed the patient's lab results. Labs: Laboratory Results - last 24 hr 04/08/21 04/08/21 04/08/21 14:40 14:40 14:40 WBC 8.2 RBC 3.50 L Hgb 7.7 L Hct 26.9 L MCV 76.9 L MCH 22.0 L MCHC 28.6 L RDW Std Deviation 55.4 H RDW Coeff of Deborah 19.9 H Plt Count 480 H MPV 8.7 Immature Gran % (Auto) 0.700 Neut % (Auto) 74.6 H Lymph % (Auto) 14.[address] [facility] % (Auto) 7.2 Eos % (Auto) 2.4 Baso % (Auto) 0.2 Absolute Neuts (auto) 6.1 Absolute Lymphs (auto) 1.23 Nucleated RBC % 0 PT 20.1 H INR 1.8 APTT 43.0 H Sodium 138 Potassium 3.7 Chloride 103 Carbon Dioxide 29.0 Anion Gap 6 BUN 11 Creatinine 0.40 L Estim Creat Clear Calc 144.45 Est GFR (MDRD) Af Amer 209 Est GFR (MDRD) Non-Af 173 BUN/Creatinine Ratio 27.3 H Glucose 102 Calcium 8.1 L Total Bilirubin 0.30 AST 11 L ALT 9 L Alkaline Phosphatase 129 H Total Protein 6.0 L Albumin 1.7 L Globulin 4.3 H Albumin/Globulin Ratio 0.4 L Discharge Plan Triage Chief Complaint: Wound ED Provider: Jaya Christian Dx/Rx/DC Orders Clinical Impression: Sacral decubitus ulcer, stage IV, Paraplegia following spinal cord injury, Soft tissue infection Prescriptions: No Action acyclovir 400 mg tablet 400 mg PO DAILY RF: 0 methadone 5 mg tablet 10 mg PO QHS RF: 0 oxycodone 10 mg tablet 10 mg PO TID PRN PRN (Reason: Pain) RF: 0 gabapentin 100 mg capsule 100 mg PO BID RF: 0 baclofen 5 mg tablet 7.5 mg PO BID RF: 0 temazepam 30 MG capsule 30 mg PO QHS RF: 0 furosemide 20 mg tablet 20 mg PO BID RF: 0 gabapentin 300 mg capsule 300 mg PO QHS RF: 0 apixaban 5 MG tablet 5 mg PO BID RF: 0 levothyroxine [Euthyrox] 75 mcg tablet 75 mcg PO MOTUWETHFRSA RF: 0 levothyroxine [Euthyrox] 75 mcg tablet 150 mcg PO PLASCENCIA RF: 0 calcium carbonate [Calcium 500] 500 mg calcium (1,250 mg) Tablet 500 mg PO DAILY RF: 0 polyethylene glycol 3350 17 gram/dose Powder 17 g PO QODAY RF: 0 methadone 5 mg tablet 15 mg PO DAILY RF: 0 cholecalciferol (vitamin D3) 25 mcg (1,000 unit) Capsule 25 mcg PO DAILY RF: 0 melatonin 10 mg Tablet 20 mg PO QHS RF: 0 potassium chloride 10 mEq tablet extended release 20 meq PO TID RF: 0 bisacodyl [Dulcolax (bisacodyl)] 5 mg Tablet,Delayed Release (Dr/Ec) 5 mg PO QODAY RF: 0 carvedilol 3.125 mg tablet 3.125 mg PO BID RF: 0 Primary Care Provider: Aaron Chand Referrals: Aaron Chand MD [Primary Care Provider] - Disposition Disposition: Acute Care Hospital [facility]
--- NOTE | 2021-04-08 15:52 | NURSING ---
[facility] DECUBITUS ULCER WITH PROBABLE OSTEOMYELITIS
[2021-04-08 15:54] VITALS: BP 88/58; PULSE 76; RESP 15; TEMP 36.2; O2SAT 99
--- NOTE | 2021-04-08 16:10 | CASEMGMT ---
SHERRON CM to room to meet with patient for initial transition planning/care coordination assessment. HSERRON MADRIGAL introduced self and role at [facility]. Patient voices understanding and consents to assessment at this time. Patient's Lexii Dickson present at bedside. Patient is alert and oriented, lying on ER cart in no apparent distress and answers all questions appropriately. Care providers, pharmacy, and demographics verified/updated at this time. PCP: Aaron Chand Specialists: Sebas- plastic surgeon, Desiree Aguilar, TORIN- wound care, Masci- oncology Preferred Pharmacy: [facility] Insurance: [employer] [facility] Prescription Benefit: yes Living Will/HPOA: Patient has living will and HPOA is Lexii Dickson. These forms are on file at [facility]. LNOK: Lexii Dickson Living Arrangements: Patient lives with in one story house with ramp to enter. Patient has history of renal cell carcinoma with metastasis to bone, resulting in paraplegia secondary to spinal cord involvement and needs assistance with ADLs. 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 Patient uses wheelchair for mobility. Smoking/ETOH: Never smoker, denies ETOH use Transportation: Patient's drives patient and patient denies transportation concerns. DME/HHC/SNF: Patient has shower chair, raised toilet seat, grab bars, wheelchair and hospital bed at home. Patient is active with [facility] for wound care 2x/week. Denies previous SNF stays. Patient reports she would like to return home with [facility] but states she and hospitalist discussed SNF stay following hospital discharge. Patient states she and will consider SNF placement. CM to follow for any discharge planning/needs. Patient voices no concerns/needs at this time. Advised patient and to ask for CM if any questions/concerns/needs arise. Voice understanding. Plan: home with [facility] vs SNF, to be determined
--- NOTE | 2021-04-08 16:41 | HP.PCM.HOS_ITS ---
Documented by User: Ramona Ellis NP, [employer]-C 04/08/21 18:04 HPI - General General Date of Admission: 04/08/21 HPI Narrative SCOTTY REDMOND, is a 55 F who presents to the emergency room due to worsening decubitus ulcer. Patient has chronic wounds secondary to paraplegia following spinal cord injury. Her is her primary cop winder and noticed worsening of right buttock wound about 3 weeks ago. He states she had missed a couple follow-up appointments due to snow/road conditions. Patient denies fever, chills. denies increased drainage from wounds however he states the wounds have appeared larger and worsening in appearance. She was seen today at wound center and referred to the emergency room for further treatment and evaluation. Dr. Mullen, plastic surgery was consulted for debridement. Patient denies recent illness or other associated symptoms or complaints. 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 [facility] Medical History Acute renal failure KELLEE (acute kidney injury) Atelectasis of left lung Cancer Cardiology follow-up encounter Chronic pain syndrome Easy bruising Encephalopathy acute Excessive bleeding Fever Gastric reflux History of irregular heartbeat History of migraine History of non-ST elevation myocardial infarction (NSTEMI) (01/28/19) Immunocompromised state Indwelling urethral catheter present Low iron Malignant neoplasm of unspecified kidney, except renal pelvis Metastatic renal cell carcinoma to bone Non-ischemic cardiomyopathy Non-smoker Nonobstructive atherosclerosis of coronary artery Paralysis Paraplegia following spinal cord injury Post-menopausal Pressure sore of left ischium, stage 4 Pulmonary embolism Rheumatoid arthritis Right pulmonary embolus (01/28/19) Sacral decubitus ulcer, stage IV Sepsis Sepsis Septic shock (01/29/19) Single kidney Takotsubo syndrome Thyroid disease Uses wheelchair Home Medications temazepam 30 mg PO QHS 12/12/18 [History Last Taken 04/07/21] apixaban 5 mg PO BID 02/07/19 [History Last Taken 04/08/21] acyclovir 400 mg tablet 400 mg PO DAILY tab 08/19/19 [History Last Taken 03/11 03/30] furosemide 20 mg tablet 20 mg PO BID tab 08/19/19 [History Last Taken 04/08/21] methadone 5 mg tablet 10 mg PO QHS tab 08/19/19 [History Last Taken 04/07/21] oxycodone 10 mg tablet 10 mg PO TID PRN PRN 08/19/19 [History Last Taken 04/07/21] baclofen 5 mg tablet 7.5 mg PO BID tab 11/16/19 [History Last Taken 04/08/21] gabapentin 100 mg capsule 100 mg PO BID 11/16/19 [History Last Taken 04/08/21] gabapentin 300 mg capsule 300 mg PO QHS cap 11/16/19 [History Last Taken 04/07/21] calcium carbonate [Calcium 500] 500 mg PO DAILY 07/11/20 [History Last Taken 04/08/21] cholecalciferol (vitamin D3) 25 mcg PO DAILY 07/11/20 [History Last Taken 04/08/21] levothyroxine [Euthyrox] 75 mcg PO MOTUWETHFRSA 07/11/20 [History Last Taken 04/08/21] levothyroxine [Euthyrox] 150 mcg PO PLASCENCIA 07/11/20 [History Last Taken 04/07/21] melatonin 20 mg PO QHS 07/11/20 [History Last Taken 04/07/21] methadone 15 mg PO DAILY 07/11/20 [History Last Taken 04/08/21] polyethylene glycol 3350 17 g PO QODAY 07/11/20 [History Last Taken 04/07/21] bisacodyl [Dulcolax (bisacodyl)] 5 mg PO QODAY 04/08/21 [History Last Taken 04/07/21] carvedilol 3.125 mg PO BID 04/08/21 [History Last Taken 04/08/21] potassium chloride 20 meq PO TID 04/08/21 [History Last Taken 04/08/21] Allergy/AdvReac Type Severity Reaction Status Date / Time ondansetron [From Zofran] AdvReac HEADACHE, Verified 04/08/21 12:50 SEVERE Family History (Reviewed 04/08/21 @ 16:52 by Ramona Ellis [employer] MECH[employer]IC, [employer]CH[employer]IC-C) Mother Lung cancer Father Lung cancer Surgical History (Reviewed 04/08/21 @ 16:52 by Ramona Caleb [employer]QU[employer] MECHANIC, [employer] MECH[employer]IC-C) History of cholecystectomy History of left heart catheterization (01/31/19) History of right nephrectomy (03/30/13) History of spinal surgery (2018) History of surgery History of vascular access device Social History household members: spouse housing: house Smoking Status: Never smoker alcohol intake: never substance use type: does not use ROS Constitutional Constitutional: Denies change in weight, chills, fatigue, fever(s) or weakness Cardiovascular Cardiovascular: Denies chest pain, edema, lightheadedness, palpitations or syncope Respiratory/Chest Respiratory/Chest: Denies cough, dyspnea, productive cough, shortness of breath at rest, shortness of breath with exertion or wheezing Gastrointestinal Gastrointestinal: Denies abdominal pain, constipation, diarrhea, nausea or vomiting Genitourinary Genitourinary: Denies burning urination, difficulty urinating, dysuria, hematuria, urinary frequency, urinary incontinence or urinary urgency Musculoskeletal Musculoskeletal: Denies back pain, joint pain or muscle weakness Integumentary Integumentary: Reports other Details: Chronic decubitus wounds, sacral and isch ial pressure wounds. Dressings intact. ; Denies erythema, lesions or rash Neurologic Neurologic: Reports other Details: Chronic paraplegia ; Denies abnormal speech, confusion, dizziness, focal weakness, seizure-like activity or syncope Psychiatric Psychiatric: Denies anxiety or depression Hematologic/Lymphatic Hematologic/Lymphatic: Denies anemia, easy bleeding or easy bruising Allergic/Immunologic Allergic/Immunologic: Denies hives or asthma Vital Signs Vital Signs Vital Signs: 04/08/21 12:50 04/08/21 12:53 04/08/21 15:54 Temperature 96.3 F L 96.3 F L 97.1 F L Temperature Source Temporal Temporal Temporal Pulse Rate 92 92 76 Respiratory Rate 16 16 15 Blood Pressure 73/53 L 73/53 L 88/58 L Blood Pressure Mean 59 59 68 Pulse Ox 93 93 99 Oxygen Delivery Method Room Air Room Air Room Air Weight Weight: 130 lb Body Mass Index (BMI) 20.9 Physical Exam Const alert, oriented x3 and no apparent distress Orientation / Consciousness: awake, oriented to person, oriented to place and oriented to time HEENT normocephalic and moist oral mucous membranes Eyes PERRL, EOMs intact bilaterally and conjunctivae normal Neck no lymphadenopathy Resp normal respiratory effort and clear to auscultation bilaterally Cardio regular rate, regular rhythm and no murmurs Peripheral Pulses: pulses 2+ throughout GI normal to inspection, nondistended, normoactive bowel sounds, non-tender and non-distended Extremity normal to inspection Skin Skin Narrative: Chronic decubitus wounds, sacral and ischial pressure wounds. Dressings intact. Lesions: no lesions Rashes: no rashes Trauma: no lacerations or abrasions Neuro CN's II-XII intact bilaterally and no focal motor deficits Neuro Narrative: Chronic paraplegia. Psych mental status grossly normal and affect normal Results Lab / Micro Data Result Diagrams: 04/08/21 14:40 04/08/21 14:40 Labs: Laboratory Results - last 24 hr 04/08/21 14:40: WBC 8.2, RBC 3.50 L, Hgb 7.7 L, Hct 26.9 L, MCV 76.9 L, MCH 22.0 L, MCHC 28.6 L, RDW Std Deviation 55.4 H, RDW Coeff of Deborah 19.9 H, Plt Count 480 H, MPV 8.7, Immature Gran % (Auto) 0.700, Neut % (Auto) 74.6 H, Lymph % (Auto) 14.9 L, Cannon % (Auto) 7.2, Eos % (Auto) 2.4, Baso % (Auto) 0.2, Absolute Neuts (auto) 6.1, Absolute Lymphs (auto) 1.23, Nucleated RBC % 0 04/08/21 14:40: PT 20.1 H, INR 1.8, APTT 43.0 H 04/08/21 14:40: Sodium 138, Potassium 3.7, Chloride 103, Carbon Dioxide 29.0, Anion Gap 6, BUN 11, Creatinine 0.40 L, Estim Creat Clear Calc 144.45, Est GFR (MDRD) Af Amer 209, Est GFR (MDRD) Non-Af 173, BUN/Creatinine Ratio 27.3 H, Glucose 102, Calcium 8.1 L, Total Bilirubin 0.30, AST 11 L, ALT 9 L, Alkaline Phosphatase 129 H, Total Protein 6.0 L, Albumin 1.7 L, Globulin 4.3 H, Albumin/Globulin Ratio 0.4 L Assessment & Plan Assessment/Plan (1) Decubital ulcer: PLAN: 1. Infected right ischial pressure ulcer, chronic decubitus ulcera tions including stage IV sacral pressure ulcer and stage IV left ischial pressure ulcer- Recent ischium culture grew corynebacterium and Enterococcus. IV Zosyn and IV vancomycin. Wound RN consult. ID and plastic surgery consult. Every 2 hour turns. 2. 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 Valiente. 3. Chronic pain syndrome-on methadone, gabapentin. 4. Hypothyroidism-continue levothyroxine. 5. GERD-continue PPI. 6. History of PE-on Eliquis. 7. Chronic normocytic anemia-stable, trend CBC. 8. Hypertension/nonobstructive CAD/nonischemic cardiomyopathy-hold Lasix, carvedilol due to hypotension. DVT prophylaxis-hold Eliquis due to plan for surgical intervention, SCDs This patient was seen by NIKKY Trent under the supervision of Dr. Higuera. Time spent examining patient, reviewing data and subsequent management of care: 19 Documented by User: Dr. Dara Higuera MD 04/08/21 19:36 HPI - General General Date of Admission: 04/08/21 [facility] Medical History Acute renal failure KELLEE (acute kidney injury) Atelectasis of left lung Cancer Cardiology follow-up encounter Chronic pain syndrome Easy bruising Encephalopathy acute Excessive bleeding Fever Gastric reflux History of irregular heartbeat History of migraine History of non-ST elevation myocardial infarction (NSTEMI) (01/28/19) Immunocompromised state Indwelling urethral catheter present Low iron Malignant neoplasm of unspecified kidney, except renal pelvis Metastatic renal cell carcinoma to bone Non-ischemic cardiomyopathy Non-smoker Nonobstructive atherosclerosis of coronary artery Paralysis Paraplegia following spinal cord injury Post-menopausal Pressure sore of left ischium, stage 4 Pulmonary embolism Rheumatoid arthritis Right pulmonary embolus (01/28/19) Sacral decubitus ulcer, stage IV Sepsis Sepsis Septic shock (01/29/19) Single kidney Takotsubo syndrome Thyroid disease Uses wheelchair Home Medications temazepam 30 mg PO QHS 12/12/18 [History Last Taken 04/07/21] apixaban 5 mg PO BID 02/07/19 [History Last Taken 04/08/21] acyclovir 400 mg tablet 400 mg PO DAILY tab 08/19/19 [History Last Taken 04/08/21] furosemide 20 mg tablet 20 mg PO BID tab 08/19/19 [History Last Taken 04/08/21] methadone 5 mg tablet 10 mg PO QHS tab 08/19/19 [History Last Taken 04/07/21] oxycodone 10 mg tablet 10 mg PO TID PRN PRN 08/19/19 [History Last Taken 04/07/21] baclofen 5 mg tablet 7.5 mg PO BID tab 11/16/19 [History Last Taken 04/08/21] gabapentin 100 mg capsule 100 mg PO BID 11/16/19 [History Last Taken 04/08/21] gabapentin 300 mg capsule 300 mg PO QHS cap 11/16/19 [History Last Taken 04/07/21] calcium carbonate [Calcium 500] 500 mg PO DAILY 07/11/20 [History Last Taken ] cholecalciferol (vitamin D3) 25 mcg PO DAILY 07/11/20 [History Last Taken 04/08/21] levothyroxine [Euthyrox] 75 mcg PO MOTUWETHFRSA 07/11/20 [History Last Taken 04/08/21] levothyroxine [Euthyrox] 150 mcg PO PLASCENCIA 07/11/20 [History Last Taken 04/07/21] melatonin 20 mg PO QHS 07/11/20 [History Last Taken 04/07/21] methadone 15 mg PO DAILY 07/11/20 [History Last Taken 04/08/21] polyethylene glycol 3350 17 g PO QODAY 07/11/20 [History Last Taken 04/07/21] bisacodyl [Dulcolax (bisacodyl)] 5 mg PO QODAY 04/08/21 [History Last Taken 04/07/21] carvedilol 3.125 mg PO BID 04/08/21 [History Last Taken 04/08/21] potassium chloride 20 meq PO TID 04/08/21 [History Last Taken 04/08/21] Allergy/AdvReac Type Severity Reaction Status Date / Time ondansetron [From Zofran] AdvReac HEADACHE, Verified 04/08/21 12:50 SEVERE Family History Mother Lung cancer Father Lung cancer Surgical History History of cholecystectomy History of left heart catheterization (01/31/19) History of right nephrectomy (03/30/13) History of spinal surgery (2018) History of surgery History of vascular access device Social History household members: spouse housing: house Smoking Status: Never smoker alcohol intake: never substance use type: does not use Results Lab / Micro Data Result Diagrams: 04/08/21 14:40 04/08/21 14:40 Charges/Coding Addendum Addendum: This patient was seen in conjunction with Jaya Lagos NP. I have independently interviewed and examined the patient and reviewed pertinent historical, laboratory, and other data. I have reviewed her note and concur with her documentation 85-year-old female, paraplegic following a spinal cord injury, with chronic decubitus wounds, follows with the wound center who comes in with worsening right buttock wound ongoing for about 3 weeks. Patient admits a couple of outpatient appointments because of snow and road conditions. is her primary caregiver. Noticed increased drainage from wounds. She denied any fever or chills or nausea or vomiting. Patient was seen in the wound center earlier today, and was sent here because her wounds look worse. Her previous wound cultures grew Corynebacterium and Enterococcus. Physical Exam: Gen: Comfortable, not pale, not jaundiced, appears comfortable CVS:HS I +II, regular, no murmurs RESP: Diminished at lung bases GI: BS present and normal, soft, nontender, no palpable organs EXT:No edema Unable to fully see her decubitus wounds Labs: WBC count is 8.2, hemoglobin is 7.7, platelet count is 480, INR is 1.8, CMP is unremarkable ASSESSMENT: 1. Acute infected-Corynebacterium and Enterococcus right ischial pressure ulcer, unstageable 2. Chronic decubitus ulceration, stage IV sacral pressure ulcer and stage IV left ischial pressure ulcer 3. History of the static renal cell carcinoma 4. Chronic pain syndrome 5. Hypothyroidism 6. GERD 7. History of PE 8. Anemia 9. Hypertension 10. CAD/nonischemic cardiomyopathy Plan: Admit to [facility] Check iron profile Continue IV vancomycin ID consult Plastic surgery consult Case management for discharge planning I discussed and explained in details the various types of CODE STATUS-full code, DNR CCA, DNR CC. Patient chose to be full code and wants everything done to keep her alive. Time spent discussing CODE STATUS 16 minutes Time spent taking patient's history, physically examining her independently, coordinating patient's care, discussing with plastic surgery and nursing, discussing CODE STATUS: 54 minutes Visit Charges Inpatient E&M: 30281 [facility] Hosp L3
[2021-04-08 17:20] VITALS: BMI 20.9
[2021-04-08 18:00] VITALS: BP 105/31; PULSE 81; RESP 16; TEMP 37; O2SAT 100
[2021-04-08] MEDS: oxyCODONE 5 MG Tablet 10 MG PO (18:32)
--- NOTE | 2021-04-08 18:33 | PCM.RX.CS ---
Consult Pharmacy has been consulted to manage selected antiobiotic: Vancomycin Type of Consult: New start Suspected Infection: Skin/Soft tissue Labs: Sodium 138 mmol/L (136-145) 04/08/21 14:40 Potassium 3.7 mmol/L (3.5-5.1) 04/08/21 14:40 Chloride 103 mmol/L (98-107) 04/08/21 14:40 Carbon Dioxide 29.0 mmol/L (21.0-32.0) 04/08/21 14:40 Anion Gap 6 (5-15) 04/08/21 14:40 BUN 11 mg/dL (7-18) 04/08/21 14:40 Creatinine 0.40 mg/dL (0.55-1.02) L 04/08/21 14:40 Est GFR (MDRD) Af Amer 209 mL/min (>60) 04/08/21 14:40 Est GFR (MDRD) Non-Af 173 mL/min (>60) 04/08/21 14:40 BUN/Creatinine Ratio 27.3 RATIO (10-20) H 04/08/21 14:40 Glucose 102 mg/dL (74-106) 04/08/21 14:40 Goal Trough: 15-20 mcg/mL Pharmacy Plan for Drug Dosing: NEW START IV VANCOMYCIN Consulting Physician: Garth Ellis NP Indication: Wound infection Goal Trough: 15-20 SrCr: 0.4 CrCl: 144 mL/min Comments: Had initial dose in ED 1500mg IV x1 04/08/21 @1519 Vancomcyin Dose: 750mg IV Q8h to start 04/08/21 @2300 Pending Level: 04/09/21 @1430, prior to 4th total dose per protocol Pharmacy Service will continue to monitor and adjust dosing as required.
[2021-04-08] MEDS: 0.9% Normal Saline 1,000 ML 150 ML IV (20:17)
[2021-04-08] MEDS: Baclofen 10 MG Tablet 7.5 MG PO (22:02)
[2021-04-08] MEDS: Methadone 10 MG Tablet PO (22:02)
[2021-04-08] MEDS: MELATONIN 10 MG TABLET 20 MG PO (22:03)
[2021-04-08] MEDS: Gabapentin 300 MG Capsule PO (22:04)
[2021-04-08] MEDS: Temazepam 15 MG Capsule 30 MG PO (22:08)
[2021-04-09] VITALS (13 sets, daily range): BP systolic 83–102; BP diastolic 47–58; PULSE 69–90; RESP 14–16; TEMP 36.1–37.4; O2SAT 92–96
[2021-04-09] MEDS: Levothyroxine 75 MCG Tablet PO (05:29)
[2021-04-09 06:27] LABS: Absolute Lymphocyte Count 0.89 X10^3/uL (0.83-4.51); Basophil# 0.02 X10^3/uL; Basophil% 0.4 % (0-1); Eosinophils% 3.6 % (0-5); Hematocrit 25.2 % (37-47); Lymphocyte # 0.89 X10^3/ul (0.83-4.51); Mean Corp Hgb Conc 27.8 g/dL (32-36); Mean Corpuscular Hgb 21.7 pg (27.0-32.0); Mean Platelet Vol. 8.9 fl (6.2-12.0); Monocyte# 0.36 X10^3/uL; Monocyte% 6.5 % (0-10); NRBC Flagged by Analyzer 0 % (0-5); Neutrophil # 4.04 X10^3/uL (2.7-7.7); Neutrophil % 72.4 % (47-70); Platelet Count 468 K/mm3 (150-450); RBC Distribution Width CV 19.9 % (11.6-14.6); Red Blood Count 3.23 M/mm3 (4.2-5.4); White Blood Count 5.6 K/mm3 (4.4-11.0)
[2021-04-09 07:05] LABS: ALB/GLOB Ratio 0.3 RATIO (0.9-2.4); AST(SGOT) 9 U/L (15-37); Alanine Aminotransfer ALT/SGPT 7 U/L (13-56); Albumin, Serum 1.3 g/dL (3.2-5.0); Alkaline Phosphatase 114 U/L (45-117); Anion Gap 6 (5-15); BUN 8 mg/dL (7-18); BUN/Creat Ratio 21.3 RATIO (10-20); Calcium,Total 7.4 mg/dL (8.5-10.1); Chloride 109 mmol/L (98-107); Creatinine, Serum 0.38 mg/dL (0.55-1.02); EST Glomerular Filtration Rate 187 mL/min (>60); Est Glom Filt Rate - Afr Amer 227 mL/min (>60); Estimated Creatinine Clearance 152.05 ml/min; Globulin 3.8 g/dL (2.2-4.2); Glucose 108 mg/dL (74-106); Potassium 3.3 mmol/L (3.5-5.1); Protein, Total 5.1 g/dL (6.4-8.2); Sodium Level 140 mmol/L (136-145)
[2021-04-09] MEDS: Acyclovir 200 MG Capsule 400 MG PO (07:58)
[2021-04-09] MEDS: Polyethylene Glycol 3350 17 GM PACKET PO (07:58)
[2021-04-09] MEDS: Calcium (Elemental) 500 MG Tablet PO (07:59)
[2021-04-09] MEDS: Baclofen 10 MG Tablet 7.5 MG PO ×2 (07:59→21:46)
[2021-04-09] MEDS: Bisacodyl 5 MG Tablet PO (07:59)
[2021-04-09] MEDS: Cholecalciferol (VIT D3) 25 MCG TABLET (1,000 UNITS) PO (07:59)
[2021-04-09] MEDS: Gabapentin 100 MG Capsule PO ×2 (07:59→17:30)
--- NOTE | 2021-04-09 09:36 | CT_ITS ---
STUDY: CT PELVIS WITHOUT CONTRAST REASON FOR EXAM: Female, 55 years old. Worsening pressure sores with osteomyelitis RADIATION DOSAGE (If Supplied By Facility): CTDIvol = ( 14.47 ) mGy, DLP = ( 444.11 ) mGycm TECHNIQUE: Transaxial imaging of the pelvis was performed with oral contrast, and without intravenous administration of contrast material. Individualized dose optimization techniques were used for this CT. COMPARISON: Comparison is made with prior study dated 07/15/2020. FINDINGS: There is evidence of the ulceration in the midline overlying the distal portion of the sacrum and coccyx. There is a increased soft tissue markings within the subcutaneous tissues suggestive of a inflammatory and/or granulation tissue. There is evidence of erosion of the coccyx suggestive of possible osteomyelitis. The soft tissue induration extends caudally overlying the posterior aspect of the distal rectum and anus and into the peritoneum. This extends into the left medial gluteal region with a deep ulceration. This has progressed as compared to prior study. Normal urinary bladder. Normal visualized small intestine. There are multiple colonic diverticula of the sigmoid colon consistent with chronic diverticulosis. There is no pelvic fluid. There is no pelvic mass lesion or lymphadenopathy. There is diffuse atherosclerotic calcification of the pelvic arteries. CT/Pelvis without IV Contrast IMPRESSION: Progressive ulceration and soft tissue proliferation in the midline overlying the distal sacrum and coccyx with progression into the perineum and left medial gluteal region with deep ulceration and osteomyelitis of the coccyx and left inferior pubic ramus. Electronically Signed: Tyron Cheung MD at 11:00 EST ,
[2021-04-09] MEDS: Potassium Chloride Oral Tablet 20 MEQ 40 MEQ PO (11:17)
[2021-04-09] MEDS: 0.9% Saline Lock 10 ML Syringe IV (11:19)
--- NOTE | 2021-04-09 11:35 | CON.PCM.ID_ITS ---
Assessment & Plan Assessment/Plan (1) Decubitus ulcer of right ischium, stage 4: (2) Soft tissue infection: PLAN: Cxs pending. Recent swab with enterococcus and diphtheroids. Encouraged covid vaccine, but she is not interested. On empiric vanc/zosyn, plastic surgery consulted. Will follow, thank you HPI Consult Data Date of Consult: 04/09/21 HPI Narrative HPI Narrative: SCOTTY REDMOND, is a 55 F with paraplegia, presented with 2-3 weeks of new decub infected wound. Had been unable to come to wound center appts recently. No fever or chills, but had worsening wound, drainage, odor. Unvaccinated for covid, no recent abx. Came to ED, admitted on vanc/zosyn. Full ROS performed and neg except as noted above. [facility] Medical History Acute renal failure KELLEE (acute kidney injury) Atelectasis of left lung Cancer Cardiology follow-up encounter Chronic pain syndrome Easy bruising Encephalopathy acute Excessive bleeding Fever Gastric reflux History of irregular heartbeat History of migraine History of non-ST elevation myocardial infarction (NSTEMI) (01/28/19) Immunocompromised state Indwelling urethral catheter present Low iron Malignant neoplasm of unspecified kidney, except renal pelvis Metastatic renal cell carcinoma to bone Non-ischemic cardiomyopathy Non-smoker Nonobstructive atherosclerosis of coronary artery Paralysis Paraplegia following spinal cord injury Post-menopausal Pressure sore of left ischium, stage 4 Pulmonary embolism Rheumatoid arthritis Right pulmonary embolus (01/28/19) Sacral decubitus ulcer, stage IV Sepsis Sepsis Septic shock (01/29/19) Single kidney Takotsubo syndrome Thyroid disease Uses wheelchair Home Medications temazepam 30 mg PO QHS 12/12/18 [History Last Taken 04/07/21] apixaban 5 mg PO BID 02/07/19 [History Last Taken 04/08/21] acyclovir 400 mg tablet 400 mg PO DAILY tab 08/19/19 [History Last Taken 04/08/21] furosemide 20 mg tablet 20 mg PO BID tab 08/19/19 [History Last Taken 04/08/21] methadone 5 mg tablet 10 mg PO QHS tab 08/19/19 [History Last Taken 04/07/21] oxycodone 10 mg tablet 10 mg PO TID PRN PRN 06/12/20 [History Last Taken 2] baclofen 5 mg tablet 7.5 mg PO BID tab 11/16/19 [History Last Taken 04/08/21] gabapentin 100 mg capsule 100 mg PO BID 11/16/19 [History Last Taken 04/08/21] gabapentin 300 mg capsule 300 mg PO QHS cap 11/16/19 [History Last Taken 04/07/21] calcium carbonate [Calcium 500] 500 mg PO DAILY 07/11/20 [History Last Taken 04/08/21] cholecalciferol (vitamin D3) 25 mcg PO DAILY 07/11/20 [History Last Taken 04/08/21] levothyroxine [Euthyrox] 75 mcg PO MOTUWETHFRSA 07/11/20 [History Last Taken 04/08/21] levothyroxine [Euthyrox] 150 mcg PO PLASCENCIA 07/11/20 [History Last Taken 04/07/21] melatonin 20 mg PO QHS 07/11/20 [History Last Taken 04/07/21] methadone 15 mg PO DAILY 07/11/20 [History Last Taken 04/08/21] polyethylene glycol 3350 17 g PO QODAY 07/11/20 [History Last Taken 04/07/21] bisacodyl [Dulcolax (bisacodyl)] 5 mg PO QODAY 04/08/21 [History Last Taken 04/07/21] carvedilol 3.125 mg PO BID 04/08/21 [History Last Taken 04/08/21] potassium chloride 20 meq PO TID 04/08/21 [History Last Taken 04/08/21] Allergy/AdvReac Type Severity Reaction Status Date / Time ondansetron [From Zofran] AdvReac HEADACHE, Verified 04/08/21 12:50 SEVERE Family History Mother Lung cancer Father Lung cancer Surgical History History of cholecystectomy History of left heart catheterization (01/31/19) History of right nephrectomy (03/30/13) History of spinal surgery (2018) History of surgery History of vascular access device Social History household members: spouse housing: house Smoking Status: Never smoker alcohol intake: never substance use type: does not use Physical Exam Const alert, oriented x3 and no apparent distress General Appearance: cooperative Exam Limitations: no limitations HEENT normocephalic and head/scalp atraumatic Eyes PERRL and EOMs intact bilaterally Neck supple and No nodes Resp normal air movement and clear to auscultation bilaterally Cardio regular rate and regular rhythm GI soft to palpation, non-tender and non-distended Extremity no clubbing, cyanosis or edema Skin Skin Narrative: wound bandaged Neuro CN's II-XII intact bilaterally Lab / Micro Data Result Diagrams: 04/09/21 06:14 04/09/21 06:14 Labs: Laboratory Results - last 24 hr 04/08/21 14:40: WBC 8.2, RBC 3.50 L, Hgb 7.7 L, Hct 26.9 L, MCV 76.9 L, MCH 22.0 L, MCHC 28.6 L, RDW Std Deviation 55.4 H, RDW Coeff of Deborah 19.9 H, Plt Count 480 H, MPV 8.7, Immature Gran % (Auto) 0.700, Neut % (Auto) 74.6 H, Lymph % (Auto) 14.9 L, Bowie % (Auto) 7.2, Eos % (Auto) 2.4, Baso % (Auto) 0.2, Absolute Neuts (auto) 6.1, Absolute Lymphs (auto) 1.23, Nucleated RBC % 0 04/08/21 14:40: PT 20.1 H, INR 1.8, APTT 43.0 H 04/08/21 14:40: Sodium 138, Potassium 3.7, Chloride 103, Carbon Dioxide 29.0, Anion Gap 6, BUN 11, Creatinine 0.40 L, Estim Creat Clear Calc 144.45, Est GFR (MDRD) Af Amer 209, Est GFR (MDRD) Non-Af 173, BUN/Creatinine Ratio 27.3 H, Glucose 102, Calcium 8.1 L, Total Bilirubin 0.30, AST 11 L, ALT 9 L, Alkaline Phosphatase 129 H, Total Protein 6.0 L, Albumin 1.7 L, Globulin 4.3 H, Albumin/Globulin Ratio 0.4 L 04/09/21 06:14: WBC 5.6, RBC 3.23 L, Hgb 7.0 L, Hct 25.2 L, MCV 78.0 L, MCH 21.7 L, MCHC 27.8 L, RDW Std Deviation 56.0 H, RDW Coeff of Deborah 19.9 H, Plt Count 468 H, MPV 8.9, Immature Gran % (Auto) 1.100 H, Neut % (Auto) 72.4 H, Lymph % (Auto) 16.0 L, Bowie % (Auto) 6.5, Eos % (Auto) 3.6, Baso % (Auto) 0.4, Absolute Neuts (auto) 4.0, Absolute Lymphs (auto) 0.89, Nucleated RBC % 0 04/09/21 06:14: Sodium 140, Potassium 3.3 L, Chloride 109 H, Carbon Dioxide 25.0, Anion Gap 6, BUN 8, Creatinine 0.38 L, Estim Creat Clear Calc 152.05, Est GFR (MDRD) Af Amer 227, Est GFR (MDRD) Non-Af 187, BUN/Creatinine Ratio 21.3 H, Glucose 108 H, Calcium 7.4 L, Total Bilirubin 0.20, AST 9 L, ALT 7 L, Alkaline Phosphatase 114, Total Protein 5.1 L, Albumin 1.3 L, Globulin 3.8, Albumin/Globulin Ratio 0.3 L 04/09/21 10:50: Crossmatch See Detail Radiology Impression Pelvis CT 04/09/21 09:36 IMPRESSION: Progressive ulceration and soft tissue proliferation in the midline overlying the distal sacrum and coccyx with progression into the perineum and left medial gluteal region with deep ulceration and osteomyelitis of the coccyx and left inferior pubic ramus. Electronically Signed: Tyron Cheung MD at 11:00 EST ,
--- NOTE | 2021-04-09 12:34 | PCM.PN.HOSP ---
Documented by User: Ramona Ellis NP, SCENE AND LIGHTING DESIGN LECTURER-C 04/09/21 12:40 Subjective Subjective Patient seen and examined. No acute events overnight. Blood pressure improved. Denies fever, chills. Awaiting surgery consult. Objective Data Objective Data Vital Signs: Vital Signs Temp Pulse Resp BP Pulse Ox 98.3 F 85 14 92/51 L 95 04/09/21 07:53 04/09/21 07:53 04/09/21 07:53 04/09/21 07:53 04/09/21 07:53 Oxygen Delivery Method Room Air Weight: 130 lb Body Mass Index (BMI) 20.9 Intake & Output: Intake and Output for Last 24 Hours 04/07/21 04/08/21 04/09/21 23:59 23:59 23:59 Intake Total 1530 / 1530 1979 Output Total 450 / 450 450 / 450 Balance 1080 / 1080 1530 / 1530 Lab / Micro Data Result Diagrams: 04/09/21 06:14 04/09/21 06:14 Labs: Laboratory Results - last 24 hr 04/08/21 14:40: WBC 8.2, RBC 3.50 L, Hgb 7.7 L, Hct 26.9 L, MCV 76.9 L, MCH 22.0 L, MCHC 28.6 L, RDW Std Deviation 55.4 H, RDW Coeff of Deborah 19.9 H, Plt Count 480 H, MPV 8.7, Immature Gran % (Auto) 0.700, Neut % (Auto) 74.6 H, Lymph % (Auto) 14.9 L, [place] % (Auto) 7.2, Eos % (Auto) 2.4, Baso % (Auto) 0.2, Absolute Neuts (auto) 6.1, Absolute Lymphs (auto) 1.23, Nucleated RBC % 0 04/08/21 14:40: PT 20.1 H, INR 1.8, APTT 43.0 H 04/08/21 14:40: Sodium 138, Potassium 3.7, Chloride 103, Carbon Dioxide 29.0, Anion Gap 6, BUN 11, Creatinine 0.40 L, Estim Creat Clear Calc 144.45, Est GFR (MDRD) Af Amer 209, Est GFR (MDRD) Non-Af 173, BUN/Creatinine Ratio 27.3 H, Glucose 102, Calcium 8.1 L, Total Bilirubin 0.30, AST 11 L, ALT 9 L, Alkaline Phosphatase 129 H, Total Protein 6.0 L, Albumin 1.7 L, Globulin 4.3 H, Albumin/Globulin Ratio 0.4 L 04/09/21 06:14: WBC 5.6, RBC 3.23 L, Hgb 7.0 L, Hct 25.2 L, MCV 78.0 L, MCH 21.7 L, MCHC 27.8 L, RDW Std Deviation 56.0 H, RDW Coeff of Deborah 19.9 H, Plt Count 468 H, MPV 8.9, Immature Gran % (Auto) 1.100 H, Neut % (Auto) 72.4 H, Lymph % (Auto) 16.0 L, [place] % (Auto) 6.5, Eos % (Auto) 3.6, Baso % (Auto) 0.4, Absolute Neuts (auto) 4.0, Absolute Lymphs (auto) 0.89, Nucleated RBC % 0 04/09/21 06:14: Sodium 140, Potassium 3.3 L, Chloride 109 H, Carbon Dioxide 25.0, Anion Gap 6, BUN 8, Creatinine 0.38 L, Estim Creat Clear Calc 152.05, Est GFR (MDRD) Af Amer 227, Est GFR (MDRD) Non-Af 187, BUN/Creatinine Ratio 21.3 H, Glucose 108 H, Calcium 7.4 L, Total Bilirubin 0.20, AST 9 L, ALT 7 L, Alkaline Phosphatase 114, Total Protein 5.1 L, Albumin 1.3 L, Globulin 3.8, Albumin/Globulin Ratio 0.3 L 04/09/21 10:50: Crossmatch See Detail Radiography Diagnostic Testing: Radiology Impression Pelvis CT 04/09/21 09:36 IMPRESSION: Progressive ulceration and soft tissue proliferation in the midline overlying the distal sacrum and coccyx with progression into the perineum and left medial gluteal region with deep ulceration and osteomyelitis of the coccyx and left inferior pubic ramus. Electronically Signed: Tyron Cheung MD at 11:00 EST , Physical Exam Const alert, oriented x3 and no apparent distress Orientation / Consciousness: awake, oriented to person, oriented to place and oriented to time HEENT normocephalic and moist oral mucous membranes Eyes PERRL, EOMs intact bilaterally and conjunctivae normal Neck no lymphadenopathy Resp normal respiratory effort and clear to auscultation bilaterally Cardio regular rate, regular rhythm and no murmurs Peripheral Pulses: pulses 2+ throughout GI normal to inspection, nondistended, normoactive bowel sounds, non-tender and non-distended Extremity normal to inspection Skin no rashes or lesions noted Skin Narrative: Chronic decubitus wounds, sacral and ischial pressure wounds. Dressings intact. Lesions: no lesions Rashes: no rashes Trauma: no lacerations or abrasions Neuro CN's II-XII intact bilaterally, no focal motor deficits, no sensory deficits noted and deep tendon reflexes 2+ bilaterally Neuro Narrative: Chronic paraplegia. Psych mental status grossly normal and affect normal Assessment & Plan Assessment/Plan (1) Decubitus ulcer of right ischium, stage 4: PLAN: 1. Infected right ischial pressure ulcer, chronic decubitus ulcerations including stage IV sacral pressure ulcer and stage IV left ischial pressure ulcer- Recent ischium culture grew corynebacterium and Enterococcus. IV Zosyn and IV vancomycin. Wound RN consult. ID and plastic surgery consult. Every 2 hour turns. Await cultures. N.p.o. at midnight for anticipated surgical intervention. 2. 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 Valiente. On immunotherapy. 3. Chronic pain syndrome-on methadone, gabapentin. 4. Hypothyroidism-continue levothyroxine. 5. GERD-continue PPI. 6. History of PE-on Eliquis. 7. Chronic normocytic anemia-1 unit PRBC given planned surgical intervention. 8. Hypertension/nonobstructive CAD/nonischemic cardiomyopathy-hold Lasix, carvedilol due to hypotension. DVT prophylaxis-hold Eliquis due to plan for surgical intervention, SCDs This patient was seen by NIKKY Trent under the supervision of Dr. Bianchi. Time spent examining patient, reviewing data and subsequent management of care: 13 Minutes Documented by User: Dr. Gino Bianchi DO 04/09/21 18:17 Objective Data Lab / Micro Data Result Diagrams: 04/09/21 06:14 04/09/21 06:14 Charges/Coding Addendum Addendum: Patient was seen and examined today independently of Ramona Ellis, she will be seen by plastic surgery today and I anticipate she will go to surgery tomorrow for debridement of her right ischial pressure ulcer, patient does not complain of any fevers or chills today On examination she appeared in good health and spirits, she does not appear to be in any distress. Vital signs as documented. Skin warm and dry and without overt rashes. Neck without JVD, thyroid appears normal, trachea is midline, neck is supple. Lungs clear, normal air movement was noted. Heart exam notable for regular rhythm, normal sounds and absence of murmurs, rubs or gallops. Abdomen unremarkable and without evidence of organomegaly, masses, or abdominal aortic enlargement, bowel sounds are present in all 4 quadrants, no abdominal tenderness was noted. Extremities nonedematous, no cyanosis was noted, no clubbing was noted. Neuro: Cranial nerves II through XII are grossly intact, patient is paraplegic. Psych: Patient is alert and oriented x3, she does not appear anxious or depressed, she does not appear agitated. Impression: #1 infected right ischial pressure ulcer-blood cultures are pending at this time, patient is on Zosyn and vancomycin #2 metastatic renal cell cancer to the bone-patient follows up with oncology as an outpatient #3 chronic paraplegia-complicates care and prolonged course #4 chronic pain syndrome-patient is on methadone and gabapentin #5 hypothyroidism-patient is on Synthroid #6 use of chronic anticoagulant due to past history of PE-patient is on Eliquis as an outpatient, this has been held due to presumed surgical intervention tomorrow #7 essential hypertension-patient is on current medications #8 chronic anemia secondary to chronic disease-chronic ischial and sacral pressure ulceration-patient will receive 1 unit of packed red blood cells today #9 stage IV left ischial pressure injury-patient is currently getting Dakin's to the left ischial ulcer area #10 sacral decubitus ulcer-stage IV-continue present care with Dakin's I have reviewed Ramona Caleb's progress note including her medical assessment and plan of care and endorse it with the above additions. Total clinical time spent with this patient including addressing the patient's medical issues, reviewing her data in the medical record, and collaboration with the patient's care team: 30 minutes. Visit Charges Inpatient E&M: [id number] [facility]
[2021-04-09 14:34] LABS: Vancomycin, Trough Level 23.7 ug/mL (5.0-15.0)
--- NOTE | 2021-04-09 16:11 | PCM.RX.CS ---
Consult Pharmacy has been consulted to manage selected antiobiotic: Vancomycin Type of Consult: Follow-up Suspected Infection: Other Labs: Sodium 140 mmol/L (136-145) 04/09/21 06:14 Potassium 3.3 mmol/L (3.5-5.1) L 04/09/21 06:14 Chloride 109 mmol/L (98-107) H 04/09/21 06:14 Carbon Dioxide 25.0 mmol/L (21.0-32.0) 04/09/21 06:14 Anion Gap 6 (5-15) 04/09/21 06:14 BUN 8 mg/dL (7-18) 04/09/21 06:14 Creatinine 0.38 mg/dL (0.55-1.02) L 04/09/21 06:14 Est GFR (MDRD) Af Amer 227 mL/min (>60) 04/09/21 06:14 Est GFR (MDRD) Non-Af 187 mL/min (>60) 04/09/21 06:14 BUN/Creatinine Ratio 21.3 RATIO (10-20) H 04/09/21 06:14 Glucose 108 mg/dL (74-106) H 04/09/21 06:14 Vancomycin Trough 23.7 ug/mL (5.0-15.0) H 04/09/21 13:45 Goal Trough: 15-20 mcg/mL Pharmacy Plan for Drug Dosing: VANCOMYCIN LEVEL RECEIVED Current Vancomycin Dose: 750mg q8h (,15,23) Number of Doses Received: 1500mg x1, 750mg x3 Vancomycin Level: 23.7 Hours Since Last Dose: 8 Renal Function: SrCr 0.38 Renal Function Trend: stable Lab/Micro: Vancomycin Plan/Comments: recommend holding 2300 dose and changing frequency to q12h starting 04/10/21 at 0700. trough before the 4th dose Pending Level: 04/11/21 at 1830 Pharmacy Service will continue to monitor and adjust dosing as required. Follow-Up Labs: Trough Vancomycin - 04/11/21 at 1830
[2021-04-09] MEDS: Acetaminophen 325 MG Tablet 650 MG PO (20:18)
[2021-04-09] MEDS: Gabapentin 300 MG Capsule PO (21:46)
[2021-04-09] MEDS: Temazepam 15 MG Capsule 30 MG PO (21:46)
[2021-04-09] MEDS: Methadone 10 MG Tablet PO (21:46)
[2021-04-09] MEDS: MELATONIN 10 MG TABLET 20 MG PO (21:47)
[2021-04-09] MEDS: DAKIN'S SOL HALF STRENGTH (=0.25%) 1 APPLIC TOPICAL (23:22)
[2021-04-10] VITALS (26 sets, daily range): BP systolic 72–116; BP diastolic 47–88; PULSE 59–95; RESP 16–18; TEMP 36.2–36.6; O2SAT 97–100; BMI 20.9
--- NOTE | 2021-04-10 | PRES_PTH ---
PATIENT: SCTOTY REDMOND LOC: MS3 U#:[id number] AGE/SX: 55/F ROOM: [facility] RE04/08/[address]: Dr. Gino Bianchi DO : 1965 BED: 1 DIS: 04/12/2021 SPEC #: [id number] RECD: 04/10/21 15:53 STATUS: JOLANTA REQ #: [id number] MATTHEW: 04/10/21 00:[address]: Orion Mullen DEPT: SURGICAL PATHOLOGY RECD BY: Curtis Strauss ENTERED: 04/11/21 08:37 SP TYPE: PRESS SORE OTHR DR: MD Dr. Aaron Lester MD Dr. James A Slaby, MD Dr. Mark Tereletsky, DO Dr. Robert Leininger, MD Tissues: A - Sacral region B - Sacral region C - Ischium, NOS D - Ischium, NOS E - Ischium, NOS F - Ischium, NOS Procedures: Decalcification bone/plaque Surgery Specimen Level III Comments: @ Ordering doctor for DEC edited from to DR.JSLABY Cunningham by JEFFERSON at 04/11/21 1002 @ Ordering doctor for SUIV edited from to DR.JSLABY Marisa PAULINO at 04/11/21 1002 @ Submitting doctor edited from to DR.JSLABY Marisa PAULINO at 04/11/21 1002 HEADER OPERATION: Excision, ischial and sacral pressure sores PRE-OP DIAGNOSIS: Progressive ulceration and soft tissue proliferation in the midline overlying the distal sacrum and coccyx with progression into the perineum and left medial gluteal region with deep ulceration and osteomyelitis of coccyx and left inferior pubic ramus TISSUE SUBMITTED: A ? Sacrum tissue, B ? Sacrum bone, C ? Left ischial tissue, D ? Left ischial bone, E ? Right ischial tissue, F ? Right ischial bone MICROSCOPIC DIAGNOSIS A. Sacral tissue: Focal ulceration, acute and chronic inflammation and granulation tissue reaction. B. Sacral bone: Pieces of bone with acute and chronic osteomyelitis and reactive changes. C. Left ischial tissue: Focal ulceration, acute and chronic inflammation, granulation tissue reaction and fat necrosis. D. Left ischial bone: Pieces of bone with acute and chronic osteomyelitis and reactive changes. E. Right ischial tissue: Focal ulceration, acute and chronic inflammation and fat necrosis. F. Right ischial bone: Pieces of bone with acute and chronic osteomyelitis and reactive changes. SJ:komal 04/15/2021 MICROSCOPIC DESCRIPTION Slides are reviewed. GROSS DESCRIPTION A. Received is one container labeled with the patient?s name and designated sacrum tissue. The specimen consists of multiple irregular fragments of pink-barajas soft tissue ranging in size from 1 to 6 cm. The larger fragment contains skin with area of ulcer. This area of ulcer measures approximately 3 cm in greatest dimension and goes down to a depth of 1.8 cm. Serial sections do not reveal mass lesions. Head Screen Worker sections are submitted in one cassette. B. Received is one container labeled with the patient?s name and designated sacrum bone. The specimen consists of two irregular fragments of barajas bone that in aggregate measure 2.8 x 2 x 0.6 cm. The specimen is sectioned and totally submitted in one cassette after decalcification. C. Received is one container labeled with the patient?s name and designated left ischial tissue. The specimen consists of multiple irregular fragments of barajas-yellow fibrofatty tissue ranging in size from 1.5 to 6 cm. The larger fragment contains skin with area of ulcer. This area of ulcer measures approximately 4 cm in greatest dimension and goes down to a depth of 1.2 cm. Serial sections do not reveal mass lesions. Head Screen Worker sections are submitted in one cassette. D. Received is one container labeled with the patient?s name and designated left ischial bone. The specimen consists of multiple irregular fragments of light to dark barajas bone that in aggregate measure 3 x 2.5 x 0.3 cm. Head Screen Worker portions are submitted in one cassette after decalcification. E. Received is one container labeled with the patient?s name and designated right ischial tissue. The specimen consists of multiple irregular fragments of pink-barajas soft tissue ranging in size from 0.8 to 9.5 cm. The larger fragment contains skin with area of ulcer. This area of ulcer measures 7 x 4 x 3 cm. Serial sections do not reveal mass lesions. Head Screen Worker sections are submitted in one cassette. F. Received is one container labeled with the patient?s name and designated right ischial bone. The specimen consists of multiple irregular fragments of light to dark barajas bone that in aggregate measure 6 x 3 x 1.5 cm. Head Screen Worker portions of bone are submitted in one cassette after decalcification. / AM:cc 04/11/21 TC:2 PT: [id number] X6, [id number] x3
--- NOTE | 2021-04-10 05:00 | EKG12_ITS ---
Test Reason : PRE-OP Blood Pressure : / mmHG Vent. Rate : 063 BPM Atrial Rate : 063 BPM P-R Int : 150 ms QRS Dur : 078 ms QT Int : 450 ms P-R-T Axes : 055 005 029 degrees QTc Int : 460 ms Normal sinus rhythm Normal ECG When compared with ECG of 28-DEC-2020 02:46, Premature supraventricular complexes are no longer Present Criteria for Septal infarct are no longer Present ST no longer depressed in Anterior leads T wave inversion no longer evident in Anterior leads Confirmed by ZOHRA ROWLAND, LAZARO ([id number]), make up editor TENISHA HEIN ([id number]) on 04/11/2021 11:23:26 AM Referred By: OCTAVIANO Confirmed By:CELESTE العلي MD
[2021-04-10] MEDS: Levothyroxine 75 MCG Tablet PO (05:50)
[2021-04-10 06:27] LABS: Absolute Lymphocyte Count 1.42 X10^3/uL (0.83-4.51); Absolute Neutrophil Count 3.6 X10^3/uL (2.0-7.7); Basophil# 0.03 X10^3/uL; Basophil% 0.5 % (0-1); Eosinophil# 0.28 X10^3/uL; Eosinophils% 4.9 % (0-5); Hematocrit 37.5 % (37-47); Hemoglobin 10.8 g/dL (12.0-15.0); Lymphocyte # 1.42 X10^3/ul (0.83-4.51); Lymphocyte % 24.7 % (19-41); Mean Corp Hgb Conc 28.8 g/dL (32-36); Mean Corpuscular Hgb 23.1 pg (27.0-32.0); Mean Corpuscular Volume 80.3 fL (81-99); Mean Platelet Vol. 8.8 fl (6.2-12.0); Monocyte# 0.41 X10^3/uL; Monocyte% 7.1 % (0-10); NRBC Flagged by Analyzer 0 % (0-5); Neutrophil # 3.58 X10^3/uL (2.7-7.7); Neutrophil % 62.1 % (47-70); Platelet Count 522 K/mm3 (150-450); RBC Distribution Width CV 19.9 % (11.6-14.6); RBC Distribution Width SD 57.5 fl (35.1-43.9); Red Blood Count 4.67 M/mm3 (4.2-5.4); White Blood Count 5.8 K/mm3 (4.4-11.0)
[2021-04-10 06:35] LABS: International Normalized Ratio 1.3; Partial Thromboplast Time 39.2 Seconds (24.1-36.2); Prothrombin Time (Protime)PT. 15.1 SECONDS (11.7-14.9)
[2021-04-10 06:51] LABS: Anion Gap 3 (5-15); BUN 6 mg/dL (7-18); BUN/Creat Ratio 16.4 RATIO (10-20); Calcium,Total 8.3 mg/dL (8.5-10.1); Chloride 117 mmol/L (98-107); Creatinine, Serum 0.37 mg/dL (0.55-1.02); EST Glomerular Filtration Rate 193 mL/min (>60); Est Glom Filt Rate - Afr Amer 234 mL/min (>60); Estimated Creatinine Clearance 156.25 ml/min; Glucose 81 mg/dL (74-106); Potassium 3.7 mmol/L (3.5-5.1); Prealbumin 3.5 mg/dL (20.0-40.0); Sodium Level 145 mmol/L (136-145)
[2021-04-10 07:01] LABS: Thyroid Stim Hormone (TSH) 3.34 uIU/mL (0.358-3.74)
--- NOTE | 2021-04-10 09:23 | PN.HOSP_ITS ---
Documented by User: Ramona Ellis NP, OWNER MANAGER-C 04/10/21 09:36 Subjective Subjective Patient seen and examined. Reports chills, denies fever. Reports she feels tired. Plan for OR today. Objective Data Objective Data Vital Signs: Vital Signs Temp Pulse Resp BP Pulse Ox 97.5 F L 65 18 107/65 99 04/10/21 08:39 04/10/21 08:39 04/10/21 08:39 04/10/21 08:39 04/10/21 08:39 Oxygen Delivery Method Room Air Weight: 130 lb 1.164 oz Body Mass Index (BMI) 20.9 Intake & Output: Intake and Output for Last 24 Hours 04/08/21 04/09/21 04/10/21 23:59 23:59 23:59 Intake Total 1530 / 1530 2745 / 2745 50 / 50 Output Total 450 / 450 450 / 450 600 / 600 Balance 1080 / 1080 2295 / 2295 -550 / -550 Lab / Micro Data Result Diagrams: 04/10/21 06:10 04/10/21 06:10 Labs: Laboratory Results - last 24 hr 04/09/21 10:50: Blood Type A POSITIVE, Antibody Screen NEGATIVE, Crossmatch See Detail 04/09/21 13:45: Vancomycin Trough 23.7 H 04/10/21 06:10: Sodium 145, Potassium 3.7, Chloride 117 H, Carbon Dioxide 25.0, Anion Gap 3 L, BUN 6 L, Creatinine 0.37 L, Estim Creat Clear Calc 156.25, Est GFR (MDRD) Af Amer 234, Est GFR (MDRD) Non-Af 193, BUN/Creatinine Ratio 16.4, Glucose 81, Calcium 8.3 L, Prealbumin 3.5 L 04/10/21 06:10: WBC 5.8, RBC 4.67, Hgb 10.8 L, Hct 37.5, MCV 80.3 L, MCH 23.1 L, MCHC 28.8 L, RDW Std Deviation 57.5 H, RDW Coeff of Deborah 19.9 H, Plt Count 522 H, MPV 8.8, Immature Gran % (Auto) 0.700, Neut % (Auto) 62.1, Lymph % (Auto) 24.7, [place] % (Auto) 7.1, Eos % (Auto) 4.9, Baso % (Auto) 0.5, Absolute Neuts (auto) 3.6, Absolute Lymphs (auto) 1.42, Nucleated RBC % 0 04/10/21 06:10: PT 15.1 H, INR 1.3, APTT 39.2 H 04/10/21 06:10: TSH 3.34 Micro: Microbiology 04/09/21 17:15 Nasal Secretion SARS-CoV-2 Antigen (Rapid) - Final Radiography Diagnostic Testing: Radiology Impression Pelvis CT 04/09/21 09:36 IMPRESSION: Progressive ulceration and soft tissue proliferation in the midline overlying the distal sacrum and coccyx with progression into the perineum and left medial gluteal region with deep ulceration and osteomyelitis of the coccyx and left inferior pubic ramus. Electronically Signed: Tyron Cheung MD at 11:00 EST , Physical Exam Const alert, oriented x3 and no apparent distress Orientation / Consciousness: awake, oriented to person, oriented to place and oriented to time HEENT normocephalic and moist oral mucous membranes Eyes PERRL, EOMs intact bilaterally and conjunctivae normal Neck no lymphadenopathy Resp normal respiratory effort and clear to auscultation bilaterally Cardio regular rate, regular rhythm and no murmurs Peripheral Pulses: pulses 2+ throughout GI normal to inspection, nondistended, normoactive bowel sounds, non-tender and non-distended Extremity normal to inspection Skin Skin Narrative: Chronic decubitus wounds, sacral and ischial pressure wounds. Dressings intact. Neuro oriented x3, CN's II-XII intact bilaterally and deep tendon reflexes 2+ bilaterally Neuro Narrative: Chronic paraplegia. Sensorium / Orientation: awake and alert Psych mental status grossly normal and affect normal Assessment & Plan Assessment/Plan (1) Decubitus ulcer of right ischium, stage 4: PLAN: 1. Infected right ischial pressure ulcer, chronic decubitus ulcerations including stage IV sacral pressure ulcer and stage IV left ischial pressure ulcer- Recent ischium culture grew corynebacterium and Enterococcus. IV Zosyn and IV vancomycin. Wound RN consult. ID and plastic surgery consult. Every 2 hour turns. Await cultures. Plan for OR today. 2. 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 Valiente. On immunotherapy. 3. Chronic pain syndrome-on methadone, gabapentin. 4. Hypothyroidism-continue levothyroxine. 5. GERD-continue PPI. 6. History of PE-on Eliquis. 7. Chronic normocytic anemia-stable. 8. Hypertension/nonobstructive CAD/nonischemic cardiomyopathy-hold Lasix, carvedilol due to hypotension. DVT prophylaxis-hold Eliquis due to plan for surgical intervention, SCDs This patient was seen by NIKKY Trent under the supervision of Dr. Bianchi. Time spent examining patient, reviewing data and subsequent management of care: 12 Minutes Documented by User: Dr. Gino Bianchi DO 04/10/21 17:18 Objective Data Lab / Micro Data Result Diagrams: 04/10/21 06:10 04/10/21 06:10 Charges/Coding Addendum Addendum: Patient was seen and examined independently of Ramona Ellis today, she went down for debridement of her pressure injury areas today, I talked briefly with her who was in the room today at the time of my examination On examination she appeared in good health and spirits, she does not appear to be in any distress. Vital signs as documented. Skin warm and dry and without overt rashes. Areas of pressure injury over the sacrum and ischial areas were not examined at this time. Neck without JVD, thyroid appears normal, trachea is midline, neck is supple. Lungs clear, normal air movement was noted. Heart exam notable for regular rhythm, normal sounds and absence of murmurs, rubs or gallops. Abdomen unremarkable and without evidence of organomegaly, masses, or abdominal aortic enlargement, bowel sounds are present in all 4 quadrants, no abdominal tenderness was noted. Extremities nonedematous, no cyanosis was noted, no clubbing was noted. Neuro: Cranial nerves II through XII are grossly intact, patient is paraplegic. Psych: Patient is alert and oriented x3, she does not appear anxious or depressed, she does not appear agitated. #1 infected right ischial pressure ulcer-blood cultures are pending at this time, patient is on Zosyn and vancomycin, she was taken to surgery today for debridement #2 metastatic renal cell cancer to the bone-patient follows up with oncology as an outpatient #3 chronic paraplegia-complicates care and prolonged course #4 chronic pain syndrome-patient is on methadone and gabapentin #5 hypothyroidism-patient is on Synthroid #6 use of chronic anticoagulant due to past history of PE-patient is on Eliquis as an outpatient, this has been held due to presumed surgical intervention betsy cristina #7 essential hypertension-patient is on current medications #8 chronic anemia secondary to chronic disease-chronic ischial and sacral pressure ulceration, CBC will be monitored, patient's hemoglobin today was 10.8. #9 stage IV left ischial pressure injury-patient is currently getting Dakin's to the left ischial ulcer area #10 sacral decubitus ulcer-stage IV-continue present care with Dakin's I have reviewed Ramona Caleb's progress note including her medical assessment and plan of care and endorse it with the above additions. Total clinical time spent by myself including addressing the patient's medical issues, reviewing the patient's medical data, and collaboration with the patient's care team: 20 minutes. Visit Charges Inpatient E&M: 60343 Subs Hosp L2
--- NOTE | 2021-04-10 10:09 | CON.PCM_ITS ---
Assessment & Plan Assessment/Plan (1) Pressure sore of left ischium, stage 4: (2) Paraplegia following spinal cord injury: (3) Malignant neoplasm of unspecified kidney, except renal pelvis: (4) Sacral decubitus ulcer, stage IV: (5) Metastatic renal cell carcinoma to bone: (6) Decubitus ulcer of right ischium, stage 4: (7) Osteomyelitis of pelvis: PLAN: Patient is known to me. I have excised her sacral and left ischial pressure sores in the past. The right ischial pressure is a new one and has necrotic tissue and drainage with an odor. She has a low air loss specialty bed. CT Pelvis was done on 04/09/21. It showed progressive ulceration and soft tissue proliferation in the midline overlying the distal sacrum and coccyx with progression into the perineum and left medial gluteal region with deep ulcera tion and osteomyelitis of the coccyx and left inferior pubic ramus to look for deeper areas of infection as well as to look for osteomyelitis. Recommend to the patient that we take her to surgery and excise the pressure sores along with partial ostectomy for osteomyelitis. I suspect it will be pos itive. Patient is immunocompromised from her cancer, and I don't want to wait to do the surgery because if the necrotic tissue worsens, I suspect some muscle necrosis. Muscle necrosis in an immunocompromised patient can be life threatening. Tissue that is removed (all three pressure sores) will be sent to Pathology for analysis to rule out carcinoma and to Microbiology for culture. A positive c ulture may necessitate antibiotic modification. She is currently on Vancomycin and Zosyn. Bone that is removed ( all three pressure sores) will be sent to Pathology for analysis to rule out osteomyelitis and to Microbiology for culture. A positive culture may necessitate antibiotic modification. Postoperatively will continue the Dakins dressing changes daily. Hgb was 7.7. Will need transfusion prior to surgery. Anticipate increased metabolic demands from the multiple pressure sores and the infection. Will check a Prealbumin. Encourage nutritional supplementation with protein to help the healing process. Patient will go to surgery today urgently because of the presence of muscle necrosis from the pressure sore. With her immunocompromised state, she is at risk for a necrotizing process that can be life threatening. Patient voices understanding. Patient was informed of the risks and complications of the procedure including alternatives to surgery. These were discussed with the patient personally. Patient voices understanding and wishes to proceed. We discussed the current risks associated with COVID-19. While it is understood that there is a community spread of COVID-19, the risk of denisse COVID-19 while at [facility] ([facility]) is very low; however, the risk cannot be completely mitigated because of the community spread of the disease. We discussed in detail the risk of exposure to and/or potential harm posed by the COVID-19 virus with having a surgery/procedure at this time versus the risk of delaying the surgery/procedure. It is not possible to know either the risk of delaying the surgery or procedure or chance of getting an infection with perfect accuracy, but a joint decision was made to proceed at this time with the scheduled surgery/procedure as indicated on the consent form. Patient was notified that we will need to comply with any screening or testing [facility] wishes to perform or that surgery may be delayed for any positive results. Procedure Criteria Procedure Type:?Elective COVID Risk Discussion: The surgeon/proceduralist and patient have discussed in detail the risk of exposure to and/or potential harm posed by the COVID-19 virus with having a surgery/procedure at this time versus the risk of delaying the surgery/procedure.? It is not possible to know either the risk of delaying the surgery or procedure or chance of getting an infection with perfect accuracy, but a joint decision was made between the patient and the surgeon/proceduralist to proceed at this time with the scheduled surgery/procedure as indicated on the consent form. .covid HPI Consult Data Date of Consult: 04/10/21 PCP / Referring MD: Dr. Aaron Chand MD / Dr. Dara Higuera MD Attending Care Provider: Dr. Gino Bianchi DO HPI Narrative Reason for Consultation: Right ischial pressure sore HPI Narrative: 55 F presented to the emergency room on 04/08/21 due to worsening right ischial pressure ulcer. Patient has chronic ulcers (left ischial and sacral pressure ulcers) secondary to paraplegia following spinal cord injury. Her noticed the right ischial pressure sore worsening over the last 3 weeks. There has been increasing drainage with enlargement of the ulcers and increased odor. Patient denies fever, chills. [facility] and [facility] on [facility]/08/21. With the increased drainage and increased odor, they sent the patient to the ED. She was started on Vancomycin and Zosyn. A recent culture from 04/02/21 showed Enterococcus faecalis and Corynebacterium striatum. Her WBC was 8.2. Her Hgb was 7.7. I was asked to evaluate this patient for surgical options for treatment. She had a CT Pelvis done on 04/09/21. It showed progressive ulceration and soft tissue proliferation in the midline overlying the distal sacrum and coccyx with progression into the perineum and left medial gluteal region with deep ulceration and osteomyelitis of the coccyx and left inferior pubic ramus. [facility] Medical History (Updated 05/07/21 @ 11:[address] Orion Mullen MD) Acute renal failure KELLEE (acute kidney injury) Atelectasis of left lung Cancer Cardiology follow-up encounter Chronic pain syndrome Easy bruising Encephalopathy acute Excessive bleeding Fever Gastric reflux History of irregular heartbeat History of migraine History of non-ST elevation myocardial infarction (NSTEMI) (01/28/19) Immunocompromised state Indwelling urethral catheter present Low iron Malignant neoplasm of unspecified kidney, except renal pelvis Metastatic renal cell carcinoma to bone Non-ischemic cardiomyopathy Non-smoker Nonobstructive atherosclerosis of coronary artery Paralysis Paraplegia following spinal cord injury Post-menopausal Pressure sore of left ischium, stage 4 Pressure ulcer of left buttock, stage 4 Pulmonary embolism Rheumatoid arthritis Right pulmonary embolus (01/28/19) Sacral decubitus ulcer, stage IV Second degree burn of thigh Sepsis Sepsis Septic shock (01/29/19) Single kidney Takotsubo syndrome Thyroid disease Uses wheelchair Home Medications temazepam 30 mg PO QHS 12/12/18 [History Last Taken 04/07/21] apixaban 5 mg PO BID 02/07/19 [History Last Taken 04/08/21] acyclovir 400 mg tablet 400 mg PO DAILY tab 08/19/19 [History Last Taken 04/08/21] furosemide 20 mg tablet 20 mg PO BID tab 08/19/19 [History Last Taken 04/08/21] methadone 5 mg tablet 10 mg PO QHS tab 08/19/19 [History Last Taken 04/07/21] oxycodone 10 mg tablet 10 mg PO TID PRN PRN 08/19/19 [History Last Taken 04/07/21] baclofen 5 mg tablet 7.5 mg PO BID tab 11/16/19 [History Last Taken 04/08/21] gabapentin 100 mg capsule 100 mg PO BID 11/16/19 [History Last Taken 04/08/21] gabapentin 300 mg capsule 300 mg PO QHS cap 11/16/19 [History Last Taken 04/07/21] calcium carbonate [Calcium 500] 500 mg PO DAILY 07/11/20 [History Last Taken 04/08/21] cholecalciferol (vitamin D3) 25 mcg PO DAILY 07/11/20 [History Last Taken 04/08/21] levothyroxine [Euthyrox] 75 mcg PO MOTUWETHFRSA 07/11/20 [History Last Taken 04/08/21] levothyroxine [Euthyrox] 150 mcg PO PLASCENCIA 07/11/20 [History Last Taken 04/07/21] melatonin 20 mg PO QHS 07/11/20 [History Last Taken 04/07/21] methadone 15 mg PO DAILY 07/11/20 [History Last Taken 04/08/21] polyethylene glycol 3350 17 g PO QODAY 07/11/20 [History Last Taken 04/07/21] bisacodyl [Dulcolax (bisacodyl)] 5 mg PO QODAY 04/08/21 [History Last Taken 04/07/21] carvedilol 3.125 mg PO BID 04/08/21 [History Last Taken 04/08/21] potassium chloride 20 meq PO TID 04/08/21 [History Last Taken 04/08/21] amoxicillin-pot clavulanate 1 tab PO BID #28 tab 04/12/21 [Rx Last Taken Unknown] linezolid 600 mg PO BID #28 tab 04/12/21 [Rx Last Taken Unknown] Allergy/AdvReac Type Severity Reaction Status Date / Time levofloxacin [From Levaquin] AdvReac Vomiting Verified 05/06/21 11:49 ondansetron [From Zofran] AdvReac HEADACHE, Verified 04/08/21 12:50 SEVERE Family History Mother Lung cancer Father Lung cancer Surgical History History of cholecystectomy History of left heart catheterization (01/31/19) History of right nephrectomy (03/30/13) History of spinal surgery (2018) History of surgery History of vascular access device Social History household members: spouse housing: house Smoking Status: Never smoker alcohol intake: never substance use type: does not use ROS ROS Narrative Constitutional: Denies change in weight, chills, fatigue, fever(s) or weakness Cardiovascular: Denies chest pain, edema, lightheadedness, palpitations or syncope Respiratory/Chest: Denies cough, dyspnea, productive cough, shortness of breath at rest, shortness of breath with exertion or wheezing Gastrointestinal: Denies abdominal pain, constipation, diarrhea, nausea or vomiting Genitourinary: Denies burning urination, difficulty urinating, dysuria, hematuria, urinary frequency, urinary incontinence or urinary urgency Musculoskeletal: Denies back pain, joint pain or muscle weakness Integumentary: Reports other Details: Chronic pressure sores, sacral and bila teral ulcers. Dressings intact. ; Denies erythema, lesions or rash Neurologic: Reports other Details: Chronic paraplegia ; Denies abnormal speech, confusion, dizziness, focal weakness, seizure-like activity or syncope Psychiatric: Denies anxiety or depression Hematologic/Lymphatic: Denies anemia, easy bleeding or easy bruising Allergic/Immunologic: Denies hives or asthma Physical Exam Narrative Const - alert, oriented. HEENT - PERRL, EOMs intact bilaterally, throat is clear. Neck - supple nontender. No cervical adenopathy. Resp - clear to auscultation. Cardio - regular rate, regular rhythm. GI - soft and nondistended. Skin - Chronic pressures involving the sacral and bilateral ischial area. The sacral pressure sore extends through muscle down to bone, a Stage IV. Bone is exposed. Measures 6.5 x 7.5 x 0.5 cm. Some granulation seen. Some nonviable tissue present. No purulent drainage. Some undermining noted. The left ischial pressure sore extends through muscle down to bone, a Stage IV. Bone is exposed. Measures 9.5 x 9 x 3 cm. There is a skin bridge between this ulcer and the sacral ulcer. About 3 cm skin bridge. There is some undermining in this area. The right ischial pressure sore shows necrotic tissue with palpable bone underneath, a Stage IV. With the odor, there is probably some muscle necrosis that would need debrided. I anticipate the bone will be exposed after the excision. Measures 6.5 x 6.5 x 1 cm. Has an odor. Neuro - CN's II-XII intact bilaterally. Chronic paraplegia. Psych - mental status grossly normal and affect normal. Lab / Micro Data Attestation: I reviewed the patient's lab results. Result Diagrams: 04/12/21 04:58 04/12/21 04:58 Labs: Laboratory Results - last 24 hr 04/09/21 10:50: Blood Type A POSITIVE, Antibody Screen NEGATIVE, Crossmatch See Detail 04/09/21 13:45: Vancomycin Trough 23.7 H 04/10/21 06:10: Sodium 145, Potassium 3.7, Chloride 117 H, Carbon Dioxide 25.0, Anion Gap 3 L, BUN 6 L, Creatinine 0.37 L, Estim Creat Clear Calc 156.25, Est GFR (MDRD) Af Amer 234, Est GFR (MDRD) Non-Af 193, BUN/Creatinine Ratio 16.4, Glucose 81, Calcium 8.3 L, Prealbumin 3.5 L 04/10/21 06:10: WBC 5.8, RBC 4.67, Hgb 10.8 L, Hct 37.5, MCV 80.3 L, MCH 23.1 L, MCHC 28.8 L, RDW Std Deviation 57.5 H, RDW Coeff of Deborah 19.9 H, Plt Count 522 H, MPV 8.8, Immature Gran % (Auto) 0.700, Neut % (Auto) 62.1, Lymph % (Auto) 24.7, [place] % (Auto) 7.1, Eos % (Auto) 4.9, Baso % (Auto) 0.5, Absolute Neuts (auto) 3.6, Absolute Lymphs (auto) 1.42, Nucleated RBC % 0 04/10/21 06:10: PT 15.1 H, INR 1.3, APTT 39.2 H 04/10/21 06:10: TSH 3.34 Micro: Microbiology 04/09/21 17:15 Nasal Secretion SARS-CoV-2 Antigen (Rapid) - Final Radiology Impression Pelvis CT 04/09/21 09:36 IMPRESSION: Progressive ulceration and soft tissue proliferation in the midline overlying the distal sacrum and coccyx with progression into the perineum and left medial gluteal region with deep ulceration and osteomyelitis of the coccyx and left inferior pubic ramus. Electronically Signed: Tyron Cheung MD at 11:00 EST , Procedure Criteria Type of Procedure Procedure Type: Elective Elective Risks - COVID COVID Risk Discussion: The surgeon/proceduralist and patient have discussed in detail the risk of exposure to and/or potential harm posed by the COVID-19 virus with having a surgery/procedure at this time versus the risk of delaying the surgery/procedure. It is not possible to know either the risk of delaying the surgery or procedure or chance of getting an infection with perfect accuracy, but a joint decision was made between the patient and the surgeon/proceduralist to proceed at this time with the scheduled surgery/procedure as indicated on the consent form. Charges/Coding Multi Select Codes Visit Charges Visit Charges: 26155 Init Hosp L3 (-57 Modifier ICD-10 - L89.314, L89.324, L89.154, M86.9, G82.20, C79.51, C64.9)
--- NOTE | 2021-04-10 12:17 | CASEMGMT ---
SHERRON MADRIGAL spoke with ID who states pt will need IV antibiotics at pr. Pt is currently in OR, will discuss plan with patient at a later time.
[2021-04-10] MEDS: Lidocaine 1%/Epi 1:200 (30ml) 30 ML AMPUL (12:20)
--- NOTE | 2021-04-10 14:18 | OP.PCM_ITS ---
Problems Associated Problem List Diagnoses (1) Decubitus ulcer of right ischium, stage 4: (2) Pressure sore of left ischium, stage 4: (3) Sacral decubitus ulcer, stage IV: (4) Paraplegia following spinal cord injury: (5) Osteomyelitis of pelvis: (6) Malignant neoplasm of unspecified kidney, except renal pelvis: (7) Metastatic renal cell carcinoma to bone: Report of Operation Date of Procedure: 04/10/21 Pre-Operative Diagnosis: 1. Right ischial pressure ulcer, Stage IV. 2. Sacral pressure ulcer, stage IV: 3. Left ischial pressure ulcer, stage IV. 4. Paraplegia following spinal cord injury: 5. Metastatic renal cell carcinoma to bone: 6. Malignant neoplasm of unspecified kidney, except renal pelvis: Post-Operative Diagnosis: Same. Surgery/Procedure Performed:: 1. Excision right ischial pressure ulcer, Stage IV, with partial ostectomy for osteomyelitis. 2. Excision sacral pressure ulcer, stage IV, with partial ostectomy for osteomyelitis. 3. Excision left ischial pressure ulcer, stage IV, with partial ostectomy for osteomyelitis. Description of Surgical Findings:: 55 F presented to the emergency room on 04/08/21 due to worsening right ischial pressure ulcer. Patient has chronic ulcers (left ischial and sacral pressure ulcers) secondary to paraplegia following spinal cord injury. Her noticed the right ischial pressure sore worsening over the last 3 weeks. There has been increasing drainage with enlargement of the ulcers. Patient denies fever, chills. [facility] and went there on 04/08/21. With the increased drainage and increased odor, they sent the patient to the ED. She was started on Vancomycin and Zosyn. A recent culture from 04/02/21 showed Enterococcus faecalis and Corynebacterium striatum. Her WBC was 8.2. Her Hgb was 7.7. I was asked to evaluate this patient for surgical options for treatment. Patient was informed of the risks and complications of the procedure including a lternatives to surgery. These were discussed with the patient personally. Patient voices understanding and wishes to proceed. Size of defect right ischial area - 11 x 9 x 4 cm. Size of defect left ischial/sacral areas combined - 21 x 9 x 5 cm. Surgeon: Orion Mullen supervisor bottle machines: None Type of Anesthesia: General Specimen's removed: 1. Right ischial pressure sore, soft tissue, to Pathology and Microbiology. 2. Right ischial pressure sore, bone, to Pathology and Microbiology. 3. Left ischial pressure sore, soft tissue, to Pathology and Microbiology. 4. Left ischial pressure sore, bone, to Pathology and Microbiology. 5. Sacral pressure sore, soft tissue, to Pathology and Microbiology. 6. Sacral pressure sore, bone, to Pathology and Microbiology. Drains: None. Estimated Blood Loss (mL): 250. Description of Procedure: Patient was taken to OR in supine position and was placed under general anesthesia. She was then placed in the prone position. The sacral and buttocks areas were prepped and draped in the usual fashion. SCD's were placed for DVT prophylaxis. Perioperative antibiotics were given intravenously. Using xylocaine with epinephrine, the sacral and left ischial an d right ischial pressure sores were infiltrated. After waiting 5 minutes for the anesthetic to take effect, I excised the right ischial pressure sore down through necrotic subcutaneous tissue and muscle until the bone was seen. The necrotic tissue was excised and debrided. Good bleeding tissue was seen. A partial ostectomy was done using an osteotome and a mallet. A rasp was used to smooth out the bony edges. Half the soft tissue and half the bone was sent to Pathology for analysis to rule out carcinoma and half the soft tissue and half the bone was sent to Microbiology for culture. A positive culture will necessitate antibiotic therapy. I excised the sacral pressure sore down through the subcutaneous tissue and muscle with extension down to the bone. Some fat necrosis and some exudate were excised and debrided. Also the necrotic tissue which included some muscle was excised and debrided until the bone was seen. Good bleeding tissue was then seen. A partial ostectomy was done in the sacral area using a rongeur taking multiple specimens of bone throughout the ulcer. This was done to rule out osteomyelitis. A rasp was used to smooth out the bony edges. Half the soft tissue and half the bone was sent to Pathology for analysis to rule out carcinoma and half the soft tissue and half the bone was sent to Microbiology for culture. A positive culture will necessitate antibiotic therapy. I then excised the left ischial pressure sore through subcutaneous tissue and muscle with extension down to the bone. There was a lot of undermining superiorly and laterally. There was extensive fat necrosis and exudate present. There is a small skin bridge between the sacral pressure sore and the left ischial pressure sore with undermining so it was excised making it one larger pressure sore to encompass the sacral pressure sore and left ischial pressure. There was a lot of exudate on the bone as well. A partial ostectomy was osteomyelitis was done using an osteotome and a mallet. A rasp was used to smooth out the bony edges. Clinically the bone appeared to be consistent with osteomyelitis. Half the soft tissue and half the bone was sent to Pathology for analysis to rule out carcinoma and to evaluate for osteomyelitis. Half the soft tissue and half the bone was sent to Microbiology for culture. A positive culture will necessitate antibiotic therapy. The pressure sores were irrigated with saline. Hemostasis was obtained with electrocautery. The ulcers were dressed with Mepitel nonadherent dressing followed by Kerlix gauze and Betadine followed by dry Kerlix gauze and ABD pads compression dressing. There is a 3 cm skin bridge between the two ulcers (left ischial and sacral). Excising the skin bridge made two pressure sores into one much larger pressure sore. Bone wax was placed on the bone to help with hemostasis. The left ischial pressure sore is very close to the anal opening. Will continue the discussion postoperatively with the patient regarding a diverting colostomy if stool contamination becomes an issue. Patient tolerated the procedure well and was sent to PACU in satisfactory condition. Patient will be sent upstairs for continued postop care. Will start off with wound care with Dakins. May try a VAC before discharge. Grafts/Implants Used: Bone wax. Complications None. Admit VTE Documentation VTE Present on Admission: No (Patient is on Eliquis for history of PE.) VTE Mechan Device Prophylaxis: SCD's VTE Pharm Prophylaxis ordered?: No Addendum Addendum: Surgery Charges CPT - 96867 ICD-10 - L89.314, M86.9, G82.20, C64.9, C79.51, L89.154, L89.324 00227 L89.154, M86.9, G82.20, C64.9, C79.51 L89.324, L89.314 65691 L89.324, M86.9, G82.20, C64.9, C79.51, L89.154, L89.314
[2021-04-10] MEDS: Lactated Ringers 1,000 ML 15 ML IV (14:40)
--- NOTE | 2021-04-10 16:14 | SUR.PHASEI ---
Pt arrived to PACU @ 1425 with 800cc of LR and an empty bag of zosyn. LR was finished per Dr. Lopez as a verbal order for a fluid bolus. Order was placed in mar for LR and scanned in @ 1440per this RN. Bag was never scanned when first hung in OR. This RN put a stop time for the zosyn as arrival time to pacu since it was already completed in OR. Per anesthesia records, NS was finished in OR and LR was hung @ 1315. Anesthesia reports starting zosyn @ 1418. Pharmacy aware of med error and report has been made.
[2021-04-10] MEDS: 0.9% Normal Saline 1,000 ML 125 ML IV (18:25)
[2021-04-10] MEDS: Acyclovir 200 MG Capsule 400 MG PO (18:29)
[2021-04-10] MEDS: Calcium (Elemental) 500 MG Tablet PO (18:30)
[2021-04-10] MEDS: DAKIN'S SOL HALF STRENGTH (=0.25%) 1 APPLIC TOPICAL (18:31)
[2021-04-10] MEDS: Gabapentin 100 MG Capsule PO (18:33)
[2021-04-10] MEDS: Cholecalciferol (VIT D3) 25 MCG TABLET (1,000 UNITS) PO (18:33)
[2021-04-10] MEDS: MELATONIN 10 MG TABLET 20 MG PO (22:25)
[2021-04-10] MEDS: Temazepam 15 MG Capsule 30 MG PO (22:25)
[2021-04-10] MEDS: Methadone 10 MG Tablet PO (22:25)
[2021-04-10] MEDS: Gabapentin 300 MG Capsule PO (22:25)
[2021-04-10] MEDS: Baclofen 10 MG Tablet 7.5 MG PO (22:26)
[2021-04-11] VITALS (15 sets, daily range): BP systolic 69–97; BP diastolic 43–59; PULSE 82–105; RESP 16–18; TEMP 36.7–38.7; O2SAT 96–100
[2021-04-11] MEDS: Acetaminophen 325 MG Tablet 650 MG PO ×2 (06:02→14:18)
[2021-04-11] MEDS: 0.9% Normal Saline 1,000 ML 999 ML IV (06:39)
[2021-04-11] MEDS: Levothyroxine 75 MCG Tablet PO (06:39)
[2021-04-11] MEDS: 0.9% Normal Saline 1,000 ML 125 ML IV ×3 (06:43→19:50)
[2021-04-11 06:47] LABS: Absolute Lymphocyte Count 1.13 X10^3/uL (0.83-4.51); Absolute Neutrophil Count 6.1 X10^3/uL (2.0-7.7); Basophil# 0.03 X10^3/uL; Basophil% 0.4 % (0-1); Eosinophil# 0.16 X10^3/uL; Hematocrit 23.4 % (37-47); Hemoglobin 6.9 g/dL (12.0-15.0); Lymphocyte # 1.13 X10^3/ul (0.83-4.51); Lymphocyte % 14.2 % (19-41); Mean Corp Hgb Conc 29.5 g/dL (32-36); Mean Corpuscular Hgb 23.3 pg (27.0-32.0); Mean Corpuscular Volume 79.1 fL (81-99); Monocyte# 0.45 X10^3/uL; Monocyte% 5.7 % (0-10); NRBC Flagged by Analyzer 0 % (0-5); Neutrophil # 6.12 X10^3/uL (2.7-7.7); Neutrophil % 76.8 % (47-70); POSITIVE MORPHOLOGY YES; Platelet Count 410 K/mm3 (150-450); RBC Distribution Width CV 20.3 % (11.6-14.6); RBC Distribution Width SD 58.5 fl (35.1-43.9); Red Blood Count 2.96 M/mm3 (4.2-5.4)
[2021-04-11 06:52] LABS: Differential Indicated SCAN CRITERIA MET
[2021-04-11 07:06] LABS: Differential Comment SCANNED
[2021-04-11 07:07] LABS: Anisocytosis 2+; Hypochromasia 2+; Microcytosis 2+
[2021-04-11 07:11] LABS: Anion Gap 5 (5-15); BUN 6 mg/dL (7-18); Calcium,Total 7.3 mg/dL (8.5-10.1); Chloride 115 mmol/L (98-107); Creatinine, Serum 0.32 mg/dL (0.55-1.02); EST Glomerular Filtration Rate 230 mL/min (>60); Est Glom Filt Rate - Afr Amer 278 mL/min (>60); Estimated Creatinine Clearance 180.66 ml/min; Glucose 75 mg/dL (74-106); Potassium 3.3 mmol/L (3.5-5.1); Prealbumin 3.1 mg/dL (20.0-40.0); Sodium Level 144 mmol/L (136-145)
[2021-04-11] MEDS: Polyethylene Glycol 3350 17 GM PACKET PO (09:48)
[2021-04-11] MEDS: Baclofen 10 MG Tablet 7.5 MG PO ×2 (09:48→21:49)
[2021-04-11] MEDS: Acyclovir 200 MG Capsule 400 MG PO (09:49)
[2021-04-11] MEDS: Gabapentin 100 MG Capsule PO ×2 (09:49→16:49)
[2021-04-11] MEDS: Calcium (Elemental) 500 MG Tablet PO (09:49)
[2021-04-11] MEDS: Potassium Chloride Oral Tablet 20 MEQ 40 MEQ PO (09:50)
[2021-04-11] MEDS: Bisacodyl 5 MG Tablet PO (09:50)
[2021-04-11] MEDS: Cholecalciferol (VIT D3) 25 MCG TABLET (1,000 UNITS) PO (09:50)
[2021-04-11] MEDS: 0.9% Saline Lock 10 ML Syringe IV (10:23)
--- NOTE | 2021-04-11 11:28 | PN.HOSP_ITS ---
Documented by User: Fausto WALTERS 04/11/21 11:39 Subjective Subjective Patient is a 55-year-old female comfortably resting in bed, alert and orient x3. Patient reports feeling weak and lethargic, but denies development of any new symptoms overnight. Does not appear in acute distress. Objective Data Objective Data Vital Signs: Vital Signs Temp Pulse Resp BP Pulse Ox 98.2 F 92 16 71/43 L 97 04/11/21 09:47 04/11/21 09:47 04/11/21 09:47 04/11/21 09:47 04/11/21 09:47 Oxygen Delivery Method Room Air Weight: 130 lb 1.164 oz Body Mass Index (BMI) 20.9 Intake & Output: Intake and Output for Last 24 Hours 04/09/21 04/10/21 04/11/21 23:59 23:59 23:59 Intake Total 2745 / 2745 1480 / 1480 2337.92 / 2337.92 Output Total 450 / 450 1550 / 1725 275 / 275 Balance 2295 / 2295 -70 / -245 2062.92 / 2062.92 Lab / Micro Data Result Diagrams: 04/11/21 06:35 04/11/21 06:35 Labs: Laboratory Results - last 24 hr 04/09/21 10:50: Crossmatch See Detail 04/11/21 06:35: WBC 8.0, RBC 2.96 L, Hgb 6.9 L, Hct 23.4 L, MCV 79.1 L, MCH 23.3 L, MCHC 29.5 L, RDW Std Deviation 58.5 H, RDW Coeff of Deborah 20.3 H, Plt Count 410, MPV 9.0, Immature Gran % (Auto) 0.900, Neut % (Auto) 76.8 H, Lymph % (Auto) 14.2 L, [place] % (Auto) 5.7, Eos % (Auto) 2.0, Baso % (Auto) 0.4, Absolute Neuts (auto) 6.1, Absolute Lymphs (auto) 1.13, Nucleated RBC % 0, Differential Comment SCANNED, Hypochromasia 2+, Anisocytosis 2+, Microcytosis 2+ 04/11/21 06:35: Sodium 144, Potassium 3.3 L, Chloride 115 H, Carbon Dioxide 24.0, Anion Gap 5, BUN 6 L, Creatinine 0.32 L, Estim Creat Clear Calc 180.66, Est GFR (MDRD) Af Amer 278, Est GFR (MDRD) Non-Af 230, BUN/Creatinine Ratio 19.0, Glucose 75, Calcium 7.3 L, Prealbumin 3.1 L Micro: Microbiology 04/08/21 14:40 Blood Culture (Wb) - Port Blood Culture - Preliminary No growth in 48 hours. 04/08/21 14:50 Blood Culture (Wb) - Anticubital Left Blood Culture - Preliminary No growth in 48 hours. 04/09/21 17:15 Nasal Secretion SARS-CoV-2 Antigen (Rapid) - Final Physical Exam Const alert, oriented x3 and no apparent distress HEENT head/scalp atraumatic and moist oral mucous membranes Head and Scalp: normocephalic Eyes PERRL, EOMs intact bilaterally and conjunctivae normal Neck no lymphadenopathy, supple and no JVD Resp normal respiratory effort, no retractions, no use of accessory muscles and clear to auscultation bilaterally Cardio regular rate, regular rhythm, no murmurs and no JVD GI normal to inspection, nondistended, normoactive bowel sounds, soft to palpation and non-tender Extremity normal to inspection, full ROM and no clubbing, cyanosis or edema Skin Skin Narrative: Chronic decubitus ulcers about the sacrum and ischium, anjana ropriately dressed. Neuro CN's II-XII intact bilaterally Psych affect normal Assessment & Plan Assessment/Plan (1) Decubitus ulcer of right ischium, stage 4: PLAN: Day 3 Discharge planning: Current plan is for patient to discharge home when medically ready. 1. Infected right ischial pressure ulcer, chronic decubitus ulcerations including stage IV sacral pressure ulcer and stage IV left ischial pressure ulcer POD 1 s/p debridement of wounds. ID and plastics following. Continue vancomycin and Zosyn. 2) acute on chronic normocytic anemia Hemoglobin currently 6.9, likely secondary to surgical blood loss. Will be transfused 2 units, will continue to trend. 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 Follows with Dr. Valiente, on immunotherapy. 4) chronic pain syndrome Continue methadone and gabapentin. 5) hypothyroidism Continue Synthroid. 6) GERD Continue PPI. 7) history of PE On Eliquis, will continue to hold secondary to #2. 8) hypokalemia Currently 3.3, replaced, will continue to trend. DVT prophylaxis - SCDs, continue to hold Eliquis secondary to #2. Patient seen by Fausto Elliott PA-C, under the supervision of Dr. Bianchi. Time spent on patient care: 9 minutes. Documented by User: Dr. Gino Bianchi, 04/11/21 16:51 Objective Data Lab / Micro Data Result Diagrams: 04/11/21 06:35 04/11/21 06:35 Charges/Coding Addendum Addendum: Patient was seen and examined independently of Fausto Elliott, she appeared hypotensive today, her hemoglobin this morning was 6.9, I elected to give her 2 units of packed red blood cells. Patient has no specific complaints at this examiner today. alert, oriented x3 and no apparent distress Orientation / Consciousness: awake, oriented to person, oriented to place and oriented to time HEENT normocephalic and moist oral mucous membranes Eyes PERRL, EOMs intact bilaterally and conjunctivae normal Neck no lymphadenopathy Resp normal respiratory effort and clear to auscultation bilaterally Cardio regular rate, regular rhythm and no murmurs Peripheral Pulses: pulses 2+ throughout GI normal to inspection, nondistended, normoactive bowel sounds, non-tender and non-distended Extremity normal to inspection Skin Skin Narrative: Chronic decubitus wounds, sacral and ischial pressure wounds. Dressings intact. Neuro oriented x3, CN's II-XII intact bilaterally and deep tendon reflexes 2+ bilaterally Neuro Narrative: Chronic paraplegia. Sensorium / Orientation: awake and alert Psych mental status grossly normal and affect normal #1 infected right ischial pressure ulcer-blood cultures are pending at this time, patient is on Zosyn and vancomycin, she was taken to surgery today for debridement #2 metastatic renal cell cancer to the bone-patient follows up with oncology as an outpatient #3 chronic paraplegia-complicates care and prolonged course #4 chronic pain syndrome-patient is on methadone and gabapentin #5 hypothyroidism-patient is on Synthroid #6 use of chronic anticoagulant due to past history of PE-patient is on Eliquis as an outpatient, this has been held due to presumed surgical intervention tomorrow #7 essential hypertension-patient is on current medications #8 chronic anemia secondary to chronic disease-chronic ischial and sacral pressure ulceration, CBC will be monitored, patient was given 2 units of packed red blood cells, CBC will be rechecked #9 stage IV left ischial pressure injury-patient is currently getting Dakin's to the left ischial ulcer area #10 sacral decubitus ulcer-stage IV-continue present care with Dakin's #11 hypotension-some of which may be secondary to blood loss, IV fluids will be administered, she will receive packed red blood cells. I have reviewed Fausto Elloitt's progress note including his medical assessment and plan of care and with the above additions endorse it. Clinical time spent reviewing the patient's medical record, addressing the patient's medical issues, and collaborating with the patient's care team: 20 minutes Visit Charges Inpatient E&M: 98491 Subs Hosp L2
--- NOTE | 2021-04-11 13:29 | NURSING ---
flushing IV blood tubing
--- NOTE | 2021-04-11 14:23 | CASEMGMT ---
Social Work Note SW in to speak with pt. SW introduced self and role at [facility]. Pt states that her plan is to return home at discharge. SW offered support to pt. Pt states that her is good support for her. Pt denied additional needs or concerns at this time. Maida Valdovinos WHEEL PRESS OPERATOR, LICENSED EMBALMER
[2021-04-11] MEDS: DAKIN'S SOL HALF STRENGTH (=0.25%) 1 APPLIC TOPICAL (14:53)
[2021-04-11 17:17] LABS: Hematocrit 30.2 % (37-47); Hemoglobin 9.6 g/dL (12.0-15.0)
[2021-04-11 19:15] LABS: Vancomycin, Trough Level 24.7 ug/mL (5.0-15.0)
--- NOTE | 2021-04-11 21:31 | PHA.PHARE_ITS ---
Consult Pharmacy has been consulted to manage selected antiobiotic: Vancomycin Type of Consult: Follow-up Suspected Infection: Skin/Soft tissue Prior Doses of Antibiotics Received/Current Regimen: Medications Vancomycin HCl () 500 mg in 100 mls @ 100 mls/hr IV Q12H ERNESTO Discontinued Medications Vancomycin HCl 750 mg/ Sodium (Chloride) 265 mls @ 250 mls/hr IV Q12H ERNESTO Last Admin: 04/11/21 18:52 Dose: 250 mls/hr Labs: Sodium 144 mmol/L (136-145) 04/11/21 06:35 Potassium 3.3 mmol/L (3.5-5.1) L 04/11/21 06:35 Chloride 115 mmol/L (98-107) H 04/11/21 06:35 Carbon Dioxide 24.0 mmol/L (21.0-32.0) 04/11/21 06:35 Anion Gap 5 (5-15) 04/11/21 06:35 BUN 6 mg/dL (7-18) L 04/11/21 06:35 Creatinine 0.32 mg/dL (0.55-1.02) L 04/11/21 06:35 Est GFR (MDRD) Af Amer 278 mL/min (>60) 04/11/21 06:35 Est GFR (MDRD) Non-Af 230 mL/min (>60) 04/11/21 06:35 BUN/Creatinine Ratio 19.0 RATIO (10-20) 04/11/21 06:35 Glucose 75 mg/dL (74-106) 04/11/21 06:35 Vancomycin Trough 24.7 ug/mL (5.0-15.0) H 04/11/21 18:30 Microbiology: Microbiology 04/10/21 14:21 Bone - Ischial Bone Gram Stain - Final 04/10/21 14:21 Bone - Ischial Bone Wound Culture - Preliminary Gram positive organism 04/10/21 14:21 Tissue Ulcer - Ischial Pressure Sore Gram Stain - Final 04/10/21 14:21 Tissue Ulcer - Ischial Pressure Sore Wound Culture - Preliminary Gram positive organism 04/10/21 14:21 Bone - Ischial Bone Gram Stain - Final 04/10/21 14:21 Bone - Ischial Bone Wound Culture - Preliminary No growth-Final to follow 04/10/21 14:21 Bone - Sacral Bone Gram Stain - Final 04/10/21 14:21 Bone - Sacral Bone Wound Culture - Preliminary No growth-Final to follow 04/10/21 14:21 Tissue - Sacral Pressure Sore Gram Stain - Final 04/10/21 14:21 Tissue - Sacral Pressure Sore Wound Culture - Preliminary No growth-Final to follow 04/10/21 14:21 Tissue - Ischial Pressure Sore Gram Stain - Final 04/08/21 14:40 Blood Culture (Wb) - Port Blood Culture - Preliminary No growth in 48 hours. 04/08/21 14:50 Blood Culture (Wb) - Anticubital Left Blood Culture - P reliminary No growth in 48 hours. 04/09/21 17:15 Nasal Secretion SARS-CoV-2 Antigen (Rapid) - Final Weight used for dosin kg Estimated Creatinine Clearance: 181 Goal Trough: 15-20 mcg/mL Pharmacy Plan for Drug Dosing: Vancomycin trough level was again high at 24.7. It was drawn properly at 11.75hr post dose. Will decrease dose again, now to 500mg q12h. And will delay the next dose until 16 hours after previous due to the high trough. Another trough will be drawn prior to the 4th dose of the new regimen. Pharmacy Service will continue to monitor and adjust dosing as required. Follow-Up Labs: Trough Vancomycin Labs to be done on [date and time ordered]: 04/13/21 @6691
[2021-04-11] MEDS: MELATONIN 10 MG TABLET 20 MG PO (21:46)
[2021-04-11] MEDS: Gabapentin 300 MG Capsule PO (21:46)
[2021-04-11] MEDS: Methadone 10 MG Tablet PO (21:49)
[2021-04-11] MEDS: Temazepam 15 MG Capsule 30 MG PO (21:49)
--- NOTE | 2021-04-11 23:45 | PN.SURG_ITS ---
Subjective Subjective Postop #1 Patient is resting in bed. Tolerated the dressing change reasonably well with Dakins. She feels tired. Objective Data Objective Data Vital Signs: Vital Signs Temp Pulse Resp BP Pulse Ox 98.1 F 89 18 84/50 L 97 04/11/21 19:40 04/11/21 19:40 04/11/21 19:40 04/11/21 19:40 04/11/21 19:40 Oxygen Delivery Method Room Air Weight: 130 lb 1.164 oz Body Mass Index (BMI) 20.9 Intake & Output: Intake and Output for Last 24 Hours 04/09/21 04/10/21 04/11/21 23:59 23:59 23:59 Intake Total 2745 / 2745 1480 / 1480 4484.59 / 4484.59 Output Total 450 / 450 1550 / 1725 425 / 425 Balance 2295 / 2295 -70 / -245 4059.59 / 4059.59 Lab / Micro Data Attestation: I reviewed the patient's lab results. (Hgb was 6.9. She was given PRBC.) Result Diagrams: 04/12/21 04:58 04/12/21 04:58 Labs: Laboratory Results - last 24 hr 04/09/21 10:50: Crossmatch See Detail 04/09/21 10:50: Crossmatch See Detail 04/11/21 06:35: WBC 8.0, RBC 2.96 L, Hgb 6.9 L, Hct 23.4 L, MCV 79.1 L, MCH 23.3 L, MCHC 29.5 L, RDW Std Deviation 58.5 H, RDW Coeff of Deborah 20.3 H, Plt Count 410, MPV 9.0, Immature Gran % (Auto) 0.900, Neut % (Auto) 76.8 H, Lymph % (Auto) 14.2 L, [place] % (Auto) 5.7, Eos % (Auto) 2.0, Baso % (Auto) 0.4, Absolute Neuts (auto) 6.1, Absolute Lymphs (auto) 1.13, Nucleated RBC % 0, Differential Comment SCANNED, Hypochromasia 2+, Anisocytosis 2+, Microcytosis 2+ 04/11/21 06:35: Sodium 144, Potassium 3.3 L, Chloride 115 H, Carbon Dioxide 24.0, Anion Gap 5, BUN 6 L, Creatinine 0.32 L, Estim Creat Clear Calc 180.66, Est GFR (MDRD) Af Amer 278, Est GFR (MDRD) Non-Af 230, BUN/Creatinine Ratio 19.0, Glucose 75, Calcium 7.3 L, Prealbumin 3.1 L 04/11/21 17:05: Hgb 9.6 L, Hct 30.2 L 04/11/21 18:30: Vancomycin Trough 24.7 H Micro: Microbiology 04/10/21 14:21 Bone - Ischial Bone Gram Stain - Final 04/10/21 14:21 Bone - Ischial Bone Wound Culture - Preliminary Gram positive organism 04/10/21 14:21 Tissue Ulcer - Ischial Pressure Sore Gram Stain - Final 04/10/21 14:21 Tissue Ulcer - Ischial Pressure Sore Wound Culture - Preliminary Gram positive organism 04/10/21 14:21 Bone - Ischial Bone Gram Stain - Final 04/10/21 14:21 Bone - Ischial Bone Wound Culture - Preliminary No growth-Final to follow 04/10/21 14:21 Bone - Sacral Bone Gram Stain - Final 04/10/21 14:21 Bone - Sacral Bone Wound Culture - Preliminary No growth-Final to follow 04/10/21 14:21 Tissue - Sacral Pressure Sore Gram Stain - Final 04/10/21 14:21 Tissue - Sacral Pressure Sore Wound Culture - Preliminary No growth-Final to follow 04/10/21 14:21 Tissue - Ischial Pressure Sore Gram Stain - Final 04/08/21 14:40 Blood Culture (Wb) - Port Blood Culture - Preliminary No growth in 48 hours. 04/08/21 14:50 Blood Culture (Wb) - Anticubital Left Blood Culture - Preliminary No growth in 48 hours. 04/09/21 17:15 Nasal Secretion SARS-CoV-2 Antigen (Rapid) - Final Physical Exam Narrative General - Alert and Oriented HEENT - PERRL. EOMI. Abdomen - Soft and nondistended. Rectal - Pressure sore wounds (right ischial, and left ischial/sacral combined) are stable. No active bleeding noted. Tolerated the Dakins dressing change reasonably well. Neuro - CN II-XII grossly intact. Psych - Normal mood and affect. Assessment & Plan Assessment/Plan (1) Decubitus ulcer of right ischium, stage 4: (2) Pressure sore of left ischium, stage 4: (3) Sacral decubitus ulcer, stage IV: (4) Osteomyelitis of pelvis: (5) Paraplegia following spinal cord injury: (6) Malignant neoplasm of unspecified kidney, except renal pelvis: (7) Metastatic renal cell carcinoma to bone: (8) Acute postoperative anemia due to expected blood loss: PLAN: The pressure sore wounds are stable (right ischial and left ischial/sacral combined). No active bleeding noted. Tolerated the Dakins dressing change reasonably well. May consider VAC at some point. Operative culture shows Gram positive organisms in a couple of cultures. C ontinue Vancomycin and Zosyn. Pathology is pending. Prealbumin was 3.1. Encourage nutritional supplementation with protein to help the healing process. Hgb was 6.9, (10.8 preop). She has history of anemia. There was 250 ml operative blood loss. The wound is showing minimal oozing. There is also IV fluid dilution. Her I's/O's are positive 6 liters. She is getting PRBC today. She states she takes Iron supplementation at home. Will recheck Hgb after the PRBC. After discharge, followup at the [facility].
[2021-04-12 02:00] VITALS: BP 111/69; PULSE 66; RESP 16; TEMP 37.3; O2SAT 95
[2021-04-12] MEDS: 0.9% Normal Saline 1,000 ML 125 ML IV (02:42)
[2021-04-12 05:05] LABS: Absolute Lymphocyte Count 1.38 X10^3/uL (0.83-4.51); Absolute Neutrophil Count 4.9 X10^3/uL (2.0-7.7); Basophil# 0.04 X10^3/uL; Basophil% 0.6 % (0-1); Eosinophil# 0.33 X10^3/uL; Eosinophils% 4.5 % (0-5); Hemoglobin 9.9 g/dL (12.0-15.0); Lymphocyte # 1.38 X10^3/ul (0.83-4.51); Mean Corp Hgb Conc 30.9 g/dL (32-36); Mean Corpuscular Hgb 25.6 pg (27.0-32.0); Mean Corpuscular Volume 82.9 fL (81-99); Mean Platelet Vol. 8.4 fl (6.2-12.0); Monocyte# 0.58 X10^3/uL; NRBC Flagged by Analyzer 0 % (0-5); Neutrophil # 4.89 X10^3/uL (2.7-7.7); Neutrophil % 67.3 % (47-70); Platelet Count 321 K/mm3 (150-450); RBC Distribution Width CV 19.7 % (11.6-14.6); RBC Distribution Width SD 59.5 fl (35.1-43.9); Red Blood Count 3.86 M/mm3 (4.2-5.4); White Blood Count 7.3 K/mm3 (4.4-11.0)
[2021-04-12 05:32] LABS: Anion Gap 5 (5-15); BUN 8 mg/dL (7-18); BUN/Creat Ratio 23.9 RATIO (10-20); Calcium,Total 7.4 mg/dL (8.5-10.1); Chloride 123 mmol/L (98-107); Creatinine, Serum 0.34 mg/dL (0.55-1.02); EST Glomerular Filtration Rate 214 mL/min (>60); Est Glom Filt Rate - Afr Amer 259 mL/min (>60); Estimated Creatinine Clearance 170.03 ml/min; Glucose 71 mg/dL (74-106); Potassium 3.5 mmol/L (3.5-5.1); Sodium Level 149 mmol/L (136-145)
[2021-04-12] MEDS: Levothyroxine 75 MCG Tablet PO (06:05)
[2021-04-12] MEDS: Potassium Chloride Oral Tablet 20 MEQ 40 MEQ PO (08:55)
[2021-04-12] MEDS: Calcium (Elemental) 500 MG Tablet PO (08:56)
[2021-04-12] MEDS: Gabapentin 100 MG Capsule PO (08:56)
[2021-04-12 08:58] VITALS: BP 119/67; PULSE 88; RESP 16; TEMP 36.9; O2SAT 98
[2021-04-12] MEDS: DAKIN'S SOL HALF STRENGTH (=0.25%) 1 APPLIC TOPICAL (09:30)
[2021-04-12 09:36] LABS: Bedside Glucose 61 mg/dL (70-110)
[2021-04-12 09:36] LABS: Bedside Glucose 70 mg/dL (70-110)
[2021-04-12 10:41] LABS: Bedside Glucose 133 mg/dL (70-110)
--- NOTE | 2021-04-12 10:52 | CASEMGMT ---
Addendum entered by Lelo Kumari 04/12/21 11:52: Faxed referral to [facility] at this time. Original Note: Spoke with hospitalist, pt to dc home today with zyvox. Discussed wound care with Desiree Aguilar. Pt to be dc'd on dakin's. She will come see pt shortly. Wound vac will be set up as outpt as she does not want pt to go home with it. TC to [place] at [facility] in [place], she is aware that pt will dc today with daily dressing changes and po antibiotics. TC to [facility] pharmacy, spoke with Ed, med cost is Linezolid $77.50 no prior auth and Augmentin $15.90. RN CM in to pt room, pt aware that C will start on Thursday for resumption of services, she is aware of the cost of meds. Pt wishes to apple picker meds at pharmacy as she does not have a way to pay over the phone. She is fine with the cost. She is aware of the daily dressing changes and states her was doing this before and will continue. Pt denies further needs at this time.
--- NOTE | 2021-04-12 10:52 | PCM.DC ---
Discharge Instructions Diet Discharge Diet: No restrictions Activity Discharge Activity: Return to Normal Activity Weight Bearing Status: Weight bearing as tolerated Dressing / Incision Call your doctor if you observe: Fever of 101 or Higher, Numbness or Tingling, Shortness of breath, Dizziness, Chest pain, Increased palpitations (irregular heartbeat) and Calf discomfort Follow Up Care Please Follow Up With: Primary care provider When: Within the next two weeks. Test Results: Test results from this visit will be discussed in further detail at your follow-up appointment, if applicable. Discharge Plan Admission Admit Date/Time: 04/08/21 15:25 Primary Reason for Your Visit: Worsening decubitus ulcer Attending Provider: Gino Bianchi Primary Care Provider: Aaron Chand Consulting Providers: Jason Tyson ; Orion Mullen Discharge Orders/Prescriptions Prescriptions: New linezolid 600 mg tablet 600 mg PO BID Qty: 28 RF: 0 amoxicillin-pot clavulanate 875-125 mg tablet 1 tab PO BID Qty: 28 RF: 0 Continued acyclovir 400 mg tablet 400 mg PO DAILY RF: 0 methadone 5 mg tablet 10 mg PO QHS RF: 0 oxycodone 10 mg tablet 10 mg PO TID PRN PRN (Reason: Pain) RF: 0 gabapentin 100 mg capsule 100 mg PO BID RF: 0 baclofen 5 mg tablet 7.5 mg PO BID RF: 0 temazepam 30 MG capsule 30 mg PO QHS RF: 0 furosemide 20 mg tablet 20 mg PO BID RF: 0 gabapentin 300 mg capsule 300 mg PO QHS RF: 0 apixaban 5 MG tablet 5 mg PO BID RF: 0 levothyroxine [Euthyrox] 75 mcg tablet 75 mcg PO [id number] RF: 0 levothyroxine [Euthyrox] 75 mcg tablet 150 mcg PO PLASCENCIA RF: 0 calcium carbonate [Calcium 500] 500 mg calcium (1,250 mg) Tablet 500 mg PO DAILY RF: 0 polyethylene glycol 3350 17 gram/dose Powder 17 g PO QODAY RF: 0 methadone 5 mg tablet 15 mg PO DAILY RF: 0 cholecalciferol (vitamin D3) 25 mcg (1,000 unit) Capsule 25 mcg PO DAILY RF: 0 melatonin 10 mg Tablet 20 mg PO QHS RF: 0 potassium chloride 10 mEq tablet extended release 20 meq PO TID RF: 0 bisacodyl [Dulcolax (bisacodyl)] 5 mg Tablet,Delayed Release (Dr/Ec) 5 mg PO QODAY RF: 0 carvedilol 3.125 mg tablet 3.125 mg PO BID RF: 0 Referrals / Follow Up: Aaron Chand MD [Primary Care Provider] - Within 2 Weeks Orion Mullen MD [STAFF PHYSICIAN] - Within 1 Week Jason Tyson MD [STAFF PHYSICIAN] - See Referral Note (Follow up with Dr. Goodrich in the next 10 days. ) Disposition Disposition (needs filled in before D/C Order can be placed): Home Health Service
[2021-04-12] MEDS: Baclofen 10 MG Tablet 7.5 MG PO (11:39)
[2021-04-12] MEDS: Acyclovir 200 MG Capsule 400 MG PO (11:40)
[2021-04-12] MEDS: Cholecalciferol (VIT D3) 25 MCG TABLET (1,000 UNITS) PO (11:40)
--- NOTE | 2021-04-12 11:40 | PCM.PN.SRG ---
Subjective Subjective Postop day#2 Patient is sitting up in bed. She denies complaints of pain. Objective Data Objective Data Vital Signs: Vital Signs Temp Pulse Resp BP Pulse Ox 98.5 F 88 16 119/67 98 04/12/21 08:58 04/12/21 08:58 04/12/21 08:58 04/12/21 08:58 04/12/21 08:58 Oxygen Delivery Method Room Air Weight: 169 lb 15.622 oz Body Mass Index (BMI) 20.9 Intake & Output: Intake and Output for Last 24 Hours 04/10/21//04/12/21 23:59 23:59 23:59 Intake Total 1480 / 1480 4984.59 / 4984.59 908.33 / 908.33 Output Total 1550 / 1725 825 / 825 1150 / 1150 Balance -70 / -245 4159.59 / 4159.59 -241.67 / -241.67 Lab / Micro Data Result Diagrams: 04/12/21 04:58 04/12/21 04:58 Labs: Laboratory Results - last 24 hr 04/09/21 10:50: Crossmatch See Detail 04/09/21 10:50: Crossmatch See Detail 04/11/21 17:05: Hgb 9.6 L, Hct 30.2 L 04/11/21 18:30: Vancomycin Trough 24.7 H 04/12/21 04:58: WBC 7.3, RBC 3.86 L, Hgb 9.9 L, Hct 32.0 L, MCV 82.9, MCH 25.6 L, MCHC 30.9 L, RDW Std Deviation 59.5 H, RDW Coeff of Deborah 19.7 H, Plt Count 321, MPV 8.4, Immature Gran % (Auto) 0.600, Neut % (Auto) 67.3, Lymph % (Auto) 19.0, [place] % (Auto) 8.0, Eos % (Auto) 4.5, Baso % (Auto) 0.6, Absolute Neuts (auto) 4.9, Absolute Lymphs (auto) 1.38, Nucleated RBC % 0 04/12/21 04:58: Sodium 149 H, Potassium 3.5, Chloride 123 H, Carbon Dioxide 21.0, Anion Gap 5, BUN 8, Creatinine 0.34 L, Estim Creat Clear Calc 170.03, Est GFR (MDRD) Af Amer 259, Est GFR (MDRD) Non-Af 214, BUN/Creatinine Ratio 23.9 H, Glucose 71 L, Calcium 7.4 L 04/12/21 08:50: POC Glucose 61 L 04/12/21 09:12: POC Glucose 70 04/12/21 10:37: POC Glucose 133 H Micro: Microbiology 04/10/21 14:21 Tissue Ulcer - Ischial Pressure Sore Gram Stain - Final 04/10/21 14:21 Tissue Ulcer - Ischial Pressure Sore Wound Culture - Final Corynebacterium striatum 04/10/21 14:21 Tissue Ulcer - Ischial Pressure Sore Anaerobic Culture - Preliminary 04/10/21 14:21 Bone - Ischial Bone Gram Stain - Final 04/10/21 14:21 Bone - Ischial Bone Wound Culture - Preliminary Gram positive merly 04/10/21 14:21 Tissue - Ischial Pressure Sore Gram Stain - Final 04/10/21 14:21 Tissue - Ischial Pressure Sore Anaerobic Culture - Preliminary 04/10/21 14:21 Bone - Sacral Bone Gram Stain - Final 04/10/21 14:21 Bone - Sacral Bone Wound Culture - Preliminary No growth-Final to follow 04/10/21 14:21 Bone - Sacral Bone Anaerobic Culture - Preliminary No growth in 48 hours. 04/10/21 14:21 Bone - Ischial Bone Gram Stain - Final 04/10/21 14:21 Bone - Ischial Bone Wound Culture - Preliminary No growth-Final to follow 04/10/21 14:21 Bone - Ischial Bone Anaerobic Culture - Preliminary No growth in 48 hours. 04/10/21 14:21 Tissue - Sacral Pressure Sore Gram Stain - Final 04/10/21 14:21 Tissue - Sacral Pressure Sore Wound Culture - Preliminary No growth-Final to follow 04/10/21 14:21 Tissue - Sacral Pressure Sore Anaerobic Culture - Preliminary No growth in 48 hours. 04/08/21 14:40 Blood Culture (Wb) - Port Blood Culture - Preliminary No growth in 48 hours. 04/08/21 14:50 Blood Culture (Wb) - Anticubital Left Blood Culture - Preliminary No growth in 48 hours. 04/09/21 17:15 Nasal Secretion SARS-CoV-2 Antigen (Rapid) - Final Physical Exam Const oriented x3 and no apparent distress General Appearance: cooperative and well kempt HEENT normocephalic Resp normal respiratory effort Cardio regular rate GI normal to inspection, nondistended, normoactive bowel sounds Extremity normal capillary refill Skin Wound Narrative: Dressing is dry and intact. No active bleeding noted. Assessment & Plan Assessment/Plan (1) Pressure sore of left ischium, stage 4: (2) Sacral decubitus ulcer, stage IV: (3) Decubitus ulcer of right ischium, stage 4: (4) Ulcer of left knee: QUALIFIERS: Non-pressure ulcer stage: with fat layer exposed Qualified Code(s): L97.822 - Non-pressure chronic ulcer of other part of left lower leg with fat layer exposed (5) Osteomyelitis of pelvis: (6) Metastatic renal cell carcinoma to bone: PLAN: Patient states her pain is well controlled. No need for additional pain meds than the ones she is currently prescribed. Wound dressing intact. No active bleeding noted. Wound care will be daily Dakin's moistened gauze covered with ABD daily and as needed. We will discuss a wound VAC at her next appointment at the wound center. Preliminary operative cultures of right ischial bone shows Gram positive rods, right ischial tissue positive for Corynebacterium striatum, LEFT ischial bone negative, LEFT ischial tissue currently negative, sacral bone is no growth, sacrum tissue shows no growth. She is currently on Linezolid, ordered by ID. Follow up at the wound center on 04/22/21. Call or come in sooner if developing issues. She will be discharged later today. Charges/Coding Procedures Integumentary [id number]: [id number] Global Visit
[2021-04-12] MEDS: Vancomycin IV 500 MG/100 ML BAG 100 MG IV (11:50)
--- NOTE | 2021-04-12 14:19 | DS.PCM_ITS ---
Documented by User: Fausto WALTERS 04/12/21 14:24 Providers Date of Admission: 04/08/21 Primary Care Physician: Dr. Aaron Chand MD Consultations 04/08/21 17:49 Consult: Infectious Disease Routine Consulting Provider: Jason Tyson Reason for Consult: infected pressure wounds EMERGENT Consult: No Notified: Yes Date Notified: 04/09/21 Time Notified: 03:47 Method of Notification: Answering Service Consult: Plastic Surgery Routine Consulting Provider: Orion Mullen Reason for Consult: ischial pressure wound EMERGENT Consult: No Notified: Yes Date Notified: 04/08/21 Time Notified: 17:49 Method of Notification: Verbal Comments:: notified in ED 04/08/21 18:04 Consult: Onc/Wound/wood carver Routine Comment: Reason For Visit: WOUND INFECTION Diagnosis Discharge Diagnosis (1) Pressure sore of left ischium, stage 4: Status: Chronic Code(s): L89.324 - Pressure ulcer of left buttock, stage 4 (2) Sacral decubitus ulcer, stage IV: Status: Chronic Code(s): L89.154 - Pressure ulcer of sacral region, stage 4 (3) Decubitus ulcer of right ischium, stage 4: Status: Acute Code(s): L89.314 - Pressure ulcer of right buttock, stage 4 (4) Ulcer of left knee: Status: Acute Code(s): L97.829 - Non-pressure chronic ulcer of other part of left lower leg with unspecified severity Qualifiers: Non-pressure ulcer stage: with fat layer exposed Qualified Code(s): L97.822 - Non-pressure chronic ulcer of other part of left lower leg with fat layer exposed (5) Osteomyelitis of pelvis: Status: Acute Code(s): M86.9 - Osteomyelitis, unspecified (6) Metastatic renal cell carcinoma to bone: Status: Chronic Code(s): C79.51 - Secondary malignant neoplasm of bone; C64.9 - Malignant neoplasm of unspecified kidney, except renal pelvis Medications at Discharge Home Medications temazepam 30 mg PO QHS 12/12/18 apixaban 5 mg PO BID 02/07/19 acyclovir 400 mg tablet 400 mg PO DAILY tab 08/19/19 furosemide 20 mg tablet 20 mg PO BID tab 08/19/19 methadone 5 mg tablet 10 mg PO QHS tab 08/19/19 oxycodone 10 mg tablet 10 mg PO TID PRN PRN 08/19/19 baclofen 5 mg tablet 7.5 mg PO BID tab 11/16/19 gabapentin 100 mg capsule 100 mg PO BID 11/16/19 gabapentin 300 mg capsule 300 mg PO QHS cap 11/16/19 calcium carbonate [Calcium 500] 500 mg PO DAILY 07/11/20 cholecalciferol (vitamin D3) 25 mcg PO DAILY 07/11/20 levothyroxine [Euthyrox] 75 mcg PO MOTUWETHFRSA 07/11/20 levothyroxine [Euthyrox] 150 mcg PO PLASCENCIA 07/11/20 melatonin 20 mg PO QHS 07/11/20 methadone 15 mg PO DAILY 07/11/20 polyethylene glycol 3350 17 g PO QODAY 07/11/20 bisacodyl [Dulcolax (bisacodyl)] 5 mg PO QODAY 04/08/21 carvedilol 3.125 mg PO BID 04/08/21 potassium chloride 20 meq PO TID 04/08/21 amoxicillin-pot clavulanate 1 tab PO BID #28 tab 04/12/21 linezolid 600 mg PO BID #28 tab 04/12/21 Hospital Course Summary of Care Provided Minutes Spent on Discharge: 20 Hospital Course: Patient is a 55-year-old female who was admitted to [facility] on 04/08/2021 for evaluation and management of multiple worsening decubitus ulcers. Course of management as below. 1. Infected right ischial pressure ulcer, chronic decubitus ulcerations including stage IV sacral pressure ulcer and stage IV left ischial pressure ulcer POD 2 s/p debridement of wounds. ID and plastics following. Was managed on vancomycin and Zosyn during admission, will be transition to linezolid and Augmentin on discharge. Patient is to follow-up with Dr. Tyson in the next 10 days as well as Dr. Mullen in the next week. 2) acute on chronic normocytic anemia Hemoglobin currently 9.9 after transfusion of 2 units of blood on 04/11. 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 Follows with Dr. aVliente, on immunotherapy. 4) chronic pain syndrome Continue methadone and gabapentin. 5) hypothyroidism Continue Synthroid. 6) GERD Continue PPI. 7) history of PE On Eliquis, will continue to hold secondary to #2. 8) hypokalemia Resolved, currently 3.5. Patient seen by Fausto Elliott PA-C, under the supervision of Dr. Bianchi. Time spent on patient care: 20 minutes. Physical Exam Narrative Patient is a 55-year-old female comfortably resting in bed, alert and orient x3. Patient has developed some mild tremors overnight, reports that this happens to her at home and has never had her doctor look into the tremors. Does not appear in acute distress. Const alert, oriented x3 and no apparent distress HEENT normocephalic, head/scalp atraumatic and hearing grossly normal bilaterally Eyes PERRL, EOMs intact bilaterally and conjunctivae normal Neck no lymphadenopathy, supple and no JVD Resp normal respiratory effort, no retractions, no use of accessory muscles and clear to auscultation bilaterally Cardio regular rate, regular rhythm, no murmurs and no JVD GI normal to inspection, nondistended, normoactive bowel sounds, soft to palpation and non-tender Extremity normal to inspection, full ROM and no clubbing, cyanosis or edema Skin no rashes or lesions noted, no wounds and skin turgor normal Neuro CN's II-XII intact bilaterally Psych affect normal Weight / BMI Weight Weight: 169 lb 15.622 oz Body Mass Index (BMI) 20.9 ABG / Lab / Microbiology Data Result Diagrams: 04/12/21 04:58 04/12/21 04:58 Laboratory: Laboratory Results - last 24 hr 04/09/21 10:50: Crossmatch See Detail 04/11/21 17:05: Hgb 9.6 L, Hct 30.2 L 04/11/21 18:30: Vancomycin Trough 24.7 H 04/12/21 04:58: WBC 7.3, RBC 3.86 L, Hgb 9.9 L, Hct 32.0 L, MCV 82.9, MCH 25.6 L , MCHC 30.9 L, RDW Std Deviation 59.5 H, RDW Coeff of Deborah 19.7 H, Plt Count 321, MPV 8.4, Immature Gran % (Auto) 0.600, Neut % (Auto) 67.3, Lymph % (Auto) 19.0, [place] % (Auto) 8.0, Eos % (Auto) 4.5, Baso % (Auto) 0.6, Absolute Neuts (auto) 4.9, Absolute Lymphs (auto) 1.38, Nucleated RBC % 0 04/12/21 04:58: Sodium 149 H, Potassium 3.5, Chloride 123 H, Carbon Dioxide 21.0, Anion Gap 5, BUN 8, Creatinine 0.34 L, Estim Creat Clear Calc 170.03, Est GFR (MDRD) Af Amer 259, Est GFR (MDRD) Non-Af 214, BUN/Creatinine Ratio 23.9 H, Glucose 71 L, Calcium 7.4 L 04/12/21 08:50: POC Glucose 61 L 04/12/21 09:12: POC Glucose 70 04/12/21 10:37: POC Glucose 133 H Microbiology: Microbiology 04/10/21 14:21 Tissue Ulcer - Ischial Pressure Sore Gram Stain - Final 04/10/21 14:21 Tissue Ulcer - Ischial Pressure Sore Wound Culture - Final Corynebacterium striatum 04/10/21 14:21 Tissue Ulcer - Ischial Pressure Sore Anaerobic Culture - Preliminary 04/10/21 14:21 Bone - Ischial Bone Gram Stain - Final 04/10/21 14:21 Bone - Ischial Bone Wound Culture - Preliminary Gram positive merly 04/10/21 14:21 Tissue - Ischial Pressure Sore Gram Stain - Final 04/10/21 14:21 Tissue - Ischial Pressure Sore Anaerobic Culture - Preliminary 04/10/21 14:21 Bone - Sacral Bone Gram Stain - Final 04/10/21 14:21 Bone - Sacral Bone Wound Culture - Preliminary No growth-Final to follow 04/10/21 14:21 Bone - Sacral Bone Anaerobic Culture - Preliminary No growth in 48 hours. 04/10/21 14:21 Bone - Ischial Bone Gram Stain - Final 04/10/21 14:21 Bone - Ischial Bone Wound Culture - Preliminary No growth-Final to follow 04/10/21 14:21 Bone - Ischial Bone Anaerobic Culture - Preliminary No growth in 48 hours. 04/10/21 14:21 Tissue - Sacral Pressure Sore Gram Stain - Final 04/10/21 14:21 Tissue - Sacral Pressure Sore Wound Culture - Preliminary No growth-Final to follow 04/10/21 14:21 Tissue - Sacral Pressure Sore Anaerobic Culture - Preliminary No growth in 48 hours. 04/08/21 14:40 Blood Culture (Wb) - Port Blood Culture - Preliminary No growth in 48 hours. 04/08/21 14:50 Blood Culture (Wb) - Anticubital Left Blood Culture - Preliminary No growth in 48 hours. 04/09/21 17:15 Nasal Secretion SARS-CoV-2 Antigen (Rapid) - Final D/C Instructions Discharge Diet: No restrictions Weight Bearing Status: Weight bearing as tolerated Call your doctor if you observe: Fever of 101 or Higher, Numbness or Tingling, Shortness of breath, Dizziness, Chest pain, Increased palpitations (irregular heartbeat) and Calf discomfort Please Follow Up With: Primary care provider When: Within the next two weeks. Meaningful Use Info Meaningful Use Diagnoses (Choose all that apply): None applicable Discharge Plan Admission Admit Date/Time: 04/08/21 15:25 Primary Reason for Your Visit: Worsening decubitus ulcer Attending Provider: Gino Bianchi Primary Care Provider: Aaron Chand Consulting Providers: Jason Tyson ; Orion Mullen Discharge Orders/Prescriptions Prescriptions: New linezolid 600 mg tablet 600 mg PO BID Qty: 28 RF: 0 amoxicillin-pot clavulanate 875-125 mg tablet 1 tab PO BID Qty: 28 RF: 0 Continued acyclovir 400 mg tablet 400 mg PO DAILY RF: 0 methadone 5 mg tablet 10 mg PO QHS RF: 0 oxycodone 10 mg tablet 10 mg PO TID PRN PRN (Reason: Pain) RF: 0 gabapentin 100 mg capsule 100 mg PO BID RF: 0 baclofen 5 mg tablet 7.5 mg PO BID RF: 0 temazepam 30 MG capsule 30 mg PO QHS RF: 0 furosemide 20 mg tablet 20 mg PO BID RF: 0 gabapentin 300 mg capsule 300 mg PO QHS RF: 0 apixaban 5 MG tablet 5 mg PO BID RF: 0 levothyroxine [Euthyrox] 75 mcg tablet 75 mcg PO MOTUWETHFRSA RF: 0 levothyroxine [Euthyrox] 75 mcg tablet 150 mcg PO PLASCENCIA RF: 0 calcium carbonate [Calcium 500] 500 mg calcium (1,250 mg) Tablet 500 mg PO DAILY RF: 0 polyethylene glycol 3350 17 gram/dose Powder 17 g PO QODAY RF: 0 methadone 5 mg tablet 15 mg PO DAILY RF: 0 cholecalciferol (vitamin D3) 25 mcg (1,000 unit) Capsule 25 mcg PO DAILY RF: 0 melatonin 10 mg Tablet 20 mg PO QHS RF: 0 potassium chloride 10 mEq tablet extended release 20 meq PO TID RF: 0 bisacodyl [Dulcolax (bisacodyl)] 5 mg Tablet,Delayed Release (Dr/Ec) 5 mg PO QODAY RF: 0 carvedilol 3.125 mg tablet 3.125 mg PO BID RF: 0 Referrals / Follow Up: Aaron Chand MD [Primary Care Provider] - Within 2 Weeks Orion Mullen MD [STAFF PHYSICIAN] - Within 1 Week Jason Tyson MD [STAFF PHYSICIAN] - See Referral Note (Follow up with Dr. Goodrich in the next 10 days. ) Disposition Disposition (needs filled in before D/C Order can be placed): Home Health Service Documented by User: Dr. Gino Bianchi DO 04/12/21 17:08 Providers Date of Admission: 04/08/21 Reason For Visit: WOUND INFECTION Medications at Discharge Home Medications temazepam 30 mg PO QHS 12/12/18 apixaban 5 mg PO BID 02/07/19 acyclovir 400 mg tablet 400 mg PO DAILY tab 08/19/19 furosemide 20 mg tablet 20 mg PO BID tab 08/19/19 methadone 5 mg tablet 10 mg PO QHS tab 08/19/19 oxycodone 10 mg tablet 10 mg PO TID PRN PRN 08/19/19 baclofen 5 mg tablet 7.5 mg PO BID tab 11/16/19 gabapentin 100 mg capsule 100 mg PO BID 11/16/19 gabapentin 300 mg capsule 300 mg PO QHS cap 11/16/19 calcium carbonate [Calcium 500] 500 mg PO DAILY 07/11/20 cholecalciferol (vitamin D3) 25 mcg PO DAILY 07/11/20 levothyroxine [Euthyrox] 75 mcg PO MOTUWETHFRSA 07/11/20 levothyroxine [Euthyrox] 150 mcg PO PLASCENCIA 07/11/20 melatonin 20 mg PO QHS 07/11/20 methadone 15 mg PO DAILY 07/11/20 polyethylene glycol 3350 17 g PO QODAY 07/11/20 bisacodyl [Dulcolax (bisacodyl)] 5 mg PO QODAY 04/08/21 carvedilol 3.125 mg PO BID 04/08/21 potassium chloride 20 meq PO TID 04/08/21 amoxicillin-pot clavulanate 1 tab PO BID #28 tab 04/12/21 linezolid 600 mg PO BID #28 tab 04/12/21 ABG / Lab / Microbiology Data Result Diagrams: 04/12/21 04:58 04/12/21 04:58 Discharge Plan Admission Admit Date/Time: 04/08/21 15:25 Primary Reason for Your Visit: Worsening decubitus ulcer Attending Provider: Gino Bianchi Primary Care Provider: Aaron Chand Consulting Providers: Jason Tyson ; Orion Mullen Discharge Orders/Prescriptions Prescriptions: New linezolid 600 mg tablet 600 mg PO BID Qty: 28 RF: 0 amoxicillin-pot clavulanate 875-125 mg tablet 1 tab PO BID Qty: 28 RF: 0 Continued acyclovir 400 mg tablet 400 mg PO DAILY RF: 0 methadone 5 mg tablet 10 mg PO QHS RF: 0 oxycodone 10 mg tablet 10 mg PO TID PRN PRN (Reason: Pain) RF: 0 gabapentin 100 mg capsule 100 mg PO BID RF: 0 baclofen 5 mg tablet 7.5 mg PO BID RF: 0 temazepam 30 MG capsule 30 mg PO QHS RF: 0 furosemide 20 mg tablet 20 mg PO BID RF: 0 gabapentin 300 mg capsule 300 mg PO QHS RF: 0 apixaban 5 MG tablet 5 mg PO BID RF: 0 levothyroxine [Euthyrox] 75 mcg tablet 75 mcg PO MOTUWETHFRSA RF: 0 levothyroxine [Euthyrox] 75 mcg tablet 150 mcg PO PLASCENCIA RF: 0 calcium carbonate [Calcium 500] 500 mg calcium (1,250 mg) Tablet 500 mg PO DAILY RF: 0 polyethylene glycol 3350 17 gram/dose Powder 17 g PO QODAY RF: 0 methadone 5 mg tablet 15 mg PO DAILY RF: 0 cholecalciferol (vitamin D3) 25 mcg (1,000 unit) Capsule 25 mcg PO DAILY RF: 0 melatonin 10 mg Tablet 20 mg PO QHS RF: 0 potassium chloride 10 mEq tablet extended release 20 meq PO TID RF: 0 bisacodyl [Dulcolax (bisacodyl)] 5 mg Tablet,Delayed Release (Dr/Ec) 5 mg PO QODAY RF: 0 carvedilol 3.125 mg tablet 3.125 mg PO BID RF: 0 Referrals / Follow Up: Aaron Chand MD [Primary Care Provider] - Within 2 Weeks Orion Mullen MD [STAFF PHYSICIAN] - Within 1 Week Jason Tyson MD [STAFF PHYSICIAN] - See Referral Note (Follow up with Dr. Goodrich in the next 10 days. ) Disposition Disposition (needs filled in before D/C Order can be placed): Home Health Service Charges/Coding Addendum Addendum: Patient was seen and examined independently of Fausto Elliott, according to plastic surgery, she appears stable for discharge today, I had a conversation with infectious diseases and was given direction as to which outpatient antibiotics he would like the patient to receive. alert, oriented x3 and no apparent distress Orientation / Consciousness: awake, oriented to person, oriented to place and oriented to time HEENT normocephalic and moist oral mucous membranes Eyes PERRL, EOMs intact bilaterally and conjunctivae normal Neck no lymphadenopathy Resp normal respiratory effort and clear to auscultation bilaterally Cardio regular rate, regular rhythm and no murmurs Peripheral Pulses: pulses 2+ throughout GI normal to inspection, nondistended, normoactive bowel sounds, non-tender and non-distended Extremity normal to inspection Skin Skin Narrative: Chronic decubitus wounds, sacral and ischial pressure wounds. Dressings intact. Neuro oriented x3, CN's II-XII intact bilaterally and deep tendon reflexes 2+ bilaterally Neuro Narrative: Chronic paraplegia. Sensorium / Orientation: awake and alert Psych mental status grossly normal and affect normal #1 infected right ischial pressure ulcer #2 metastatic renal cell cancer to the bone-patient follows up with oncology as an outpatient #3 chronic paraplegia-complicates care and prolonged course #4 chronic pain syndrome-patient is on methadone and gabapentin #5 hypothyroidism-patient is on Synthroid #6 use of chronic anticoagulant due to past history of PE-patient is on Eliquis as an outpatient #7 essential hypertension-patient is on current medications #8 chronic anemia secondary to chronic disease including blood loss from pressure injuries-requiring blood transfusion #9 stage IV left ischial pressure injury-patient is currently getting Dakin's to the left ischial ulcer area #10 sacral decubitus ulcer-stage IV-continue present care with Dakin's #11 hypotension-resolved at this time, probably in part secondary to blood loss anemia I have reviewed Fausto Elliott's discharge summary including his medical assessment and plan of care and endorse it with the above additions. Total clinical time spent by myself addressing the patient's medical issues, reviewing all of her medical data, and collaboration with the patient's care team: 30 minutes Visit Charges Inpatient E&M: 34420 Disch Hosp
[2021-04-12] MEDS: 0.9% Saline Lock 10 ML Syringe IV (15:47)
[2021-04-12 15:50] VITALS: BP 98/65; PULSE 79; RESP 16; TEMP 36.8; O2SAT 98
== END 2021-04-12 17:30 | disposition home health service (06) | DRG 515 ==
LOC: ED 15:37 → MS3 15:41
PROVIDERS: Anesthesiology; Nurse Practitioner Family; Physician Assistant; Surgery; Admitting Provider Internal Medicine; Emergency Provider Emergency Medicine; PCP Family Medicine; Visit Provider Internal Medicine
PROC: 0QB30ZZ Excision of Left Pelvic Bone, Open Approach (ICD-10-PCS; CPT 15999; principal; 2021-04-10 11:00)
DX: M86.18 Other acute osteomyelitis, other site (principal); L89.324 Pressure ulcer of left buttock, stage 4; L89.144 Pressure ulcer of left lower back, stage 4; L89.134 Pressure ulcer of right lower back, stage 4; L89.154 Pressure ulcer of sacral region, stage 4; L89.314 Pressure ulcer of right buttock, stage 4; D84.9 Immunodeficiency, unspecified; C79.51 Secondary malignant neoplasm of bone; G82.20 Paraplegia, unspecified; I42.8 Other cardiomyopathies; L97.822 Non-pressure chronic ulcer of other part of left lower leg with fat layer exposed; C64.9 Malignant neoplasm of unspecified kidney, except renal pelvis; D62 Acute posthemorrhagic anemia; I95.89 Other hypotension; M46.28 Osteomyelitis of vertebra, sacral and sacrococcygeal region; M86.68 Other chronic osteomyelitis, other site; B95.2 Enterococcus as the cause of diseases classified elsewhere; D63.0 Anemia in neoplastic disease; E78.5 Hyperlipidemia, unspecified; K21.9 Gastro-esophageal reflux disease without esophagitis; I25.10 Atherosclerotic heart disease of native coronary artery without angina pectoris; I10 Essential (primary) hypertension; E03.9 Hypothyroidism, unspecified; E87.6 Hypokalemia; B96.89 Other specified bacterial agents as the cause of diseases classified elsewhere; L08.9 Local infection of the skin and subcutaneous tissue, unspecified; G89.4 Chronic pain syndrome; R74.8 Abnormal levels of other serum enzymes; Z90.5 Acquired absence of kidney; Z79.01 Long term (current) use of anticoagulants; Z79.891 Long term (current) use of opiate analgesic; Z79.899 Other long term (current) drug therapy; Z86.711 Personal history of pulmonary embolism
CPT/HCPCS: 11043; 11046; 29445; 36415; 36591; 72192; 80048; 80053; 80202; 82962; 84134; 84443; 85014; 85018; 85025; 85610; 85730; 86850; 86900; 86901; 86920; 86922; 87040; 87070; 87075; 87077; 87102; 87107; 87176; 87186; 87205; 87206; 87426; 88304; 88305; 88311; 93005; 97110; 97162; 97166; 97530; 97802; 99251; 99285; J7030; J7040; J7050; J7120; P9016; Q9967; A4216; G0463; J2405

== ENCOUNTER 2021-05-06 11:15 | Outpatient (RCR) | payer MEDICARE, SELFPAY ==
[2021-04-22 10:47] VITALS: BP 89/59; PULSE 98; RESP 20; TEMP 37
--- NOTE | 2021-04-22 12:52 | PN.PCM_ITS ---
History of Present Illness Date of Service: 04/22/21 Chief Complaint: Sacral pressure sore, Stage IV, and left ischial pressure sore, Stage IV. History of Wound: 55 year old female with a history of renal cancer and metastasis to the bone presented to [facility] with a sacral pressure sore and left ischial pressure sore. was admitted on 07/11/20 and discharged on 07/13/20 for sepsis related to an infected decubitus ulcer. She has been a paraplegic for 2.5 years after her back hardware broke. Her Oncologist is Dr. Valiente and she is on Cabometyx. Surgery 04/10/21 for 1. Excision right ischial pressure ulcer, osteomyelitis. Stage IV, with partial ostectomy for osteomyelitis. 2. Excision sacral pressure ulcer, stage IV, with partial ostectomy for osteomyelitis. 3. Excision left ischial pressure ulcer, stage IV, with partial ostectomy for osteomyelitis. Pathology from 04/10/21 - Sacral tissue show focal ulceration, acute and chronic inflammation and granulation tissue reaction. Sacral bone show pieces of bone with acute and chronic osteomyelitis and reactive changes. Left ischial tissue show focal ulceration, acute and chronic inflammation, granulation tissue reaction and fat necrosis. Left ischial bone show pieces of bone with acute and chronic osteomyelitis and reactive changes. Right ischial tissue shows focal ulceration with acute and chronic inflammation and fat necrosis. Right ischial bone pieces of bone with acute and chronic osteomyelitis and reactive change. Operative cultures: Right ischial bone positive for Corynebacterium striatum, and Staphylococcus epidermidis. Right ischial tissue positive for Coag Negative Staph, Enterococcus faecalis and Corynebacterium striatum. Left ischial bone had no growth. Left ischial tissue positive for Jessica parapsilosis and Staphylococcus epidermidis, Clostridium species and Anaerobic cocci. Sacral bone and tissue positive for Corynebacterium striatum. She was treated while hospitalized with IV Vancomycin and Zosyn. Upon discharge she has been taking Linezolid and Augmentin. Surgery on 09/19/20 for 1. Excision left ischial pressure sore, Stage IV, with partial ostectomy for osteomyelitis. 2. Excision sacral pressure sore, Stage IV. Discharged 09/26/20. Ulcer to left posterior knee caused by her urine leg bag rubbing against her skin. Her first noticed it as scab. Wound culture obtained 11/19/20 which was positive for Staphylococcus aureus and Corynebacterium striatum and is being treated with Augmentin. She obtained second degree ko on her anterior thighs bilaterally when placing a rice pack that was too hot, they have since healed. Wound care - Dakins 0.25% to the Left buttock ulcer and the right ischial ulcer covered with ABDs or super absdorbers daily and as needed. Will order Wound VAC for these two ulcers to help manage her drainage. Iodiform gauze packed into the left posterior knee ulcer daily. . Cover with gauze or ABD. Dressings to be changed daily. Right anterior thigh ulcer and left anterior leg are healed. Wound culture of new right ischial ulcer from 04/02/21 done during a nurse visit was positive for Corynebacterium striatum and Enterococcus faecalis. She has not been treated for this at this time. She is being sent to the ED for further evaluation of this ulcer because of the need for possible operative debridement. Wound culture of sacral ulcer 01/07/21 positive for Corynebacterium striatum, Streptococcus mitis/oralis, Enterococcus faecalis, Anaerobic cocci, Actinomyces bovis, Bacteroides caccae, Bacteroides thetaiotaomicron. She was started on Clindamycin and Augmentin along with probiotic to treat the wound culture. Wound culture of left posterior knee 11/19/20 positive for Staphylococcus aureus and Corynebacterium striatum. She has been started on Augmentin. Operative wound cultures: Ischial pressure sore tissue positive for Staphylococcus aureus, Streptococcus group G, Streptococcus mitis/oralis, Anaerobic cocci and Bacteroides pyogenes. Ischial bone culture Staphylococcus aureus, Enterococcus faecalis, Streptococcue mitis/oralis , Anaerobic cocci, and Bacteroides pyogenes. Sacral tissue positive Staphylococcus aureus, Streptococcus mitis/oralis, Anaerobic cocci and Bacteroides pyogenes. Vancomycin IV had to be stopped due elevated liver enzymes. The other IV antibiotics that would be sensitive would cost the patient too much per week and patient doesn't want placed in a facility for IV antibiotics. She decided to start Augmentin po, which will not have as good bone coverage as an IV antibiotics would have. She had been sitting in her wheelchair up to 12 hours a day while her is at work. They have someone come and help her out of bed in the morning and get her into her wheelchair. She has a new cushion on her wheelchair from the past several months. Wound culture was done on 07/24/20. The left ischial pressure sore was positive for Pseudomonas oryzihabitans and MRSE. The sacral pressure sore was positive for E.coli, Entercoccus faecalis, Methicillin resistant Staphylococcus haemolyticus. She was started Doxycycline, Cipro and Augmentin. She was hospitalized 12/27/20 - 01/01/21 for Septic shock and Acute complicated UTI which showed E. coli. She was treated with IV antibiotics while hospitalized and discharged home on Amoxicillin. Today she denies fever, chills at this time but has had them on and off recently. Encourage nutritional supplementation with protein to help the healing process. Progress of Wound: The left ischial and sacral ulcer are now one ulcer since her operative debridement. It is pink. She has bone exposure of both the sacrum and the left ischium. The right ischium is pink with bone exposure. The left posterior knee ulcer is smaller in diameter but continues to have depth. Objective Data Objective Data Vital Signs: Vital Signs Temp Pulse Resp BP 98.6 F 98 20 H 89/59 L 04/22/21 10:47 04/22/21 10:47 04/22/21 10:47 04/22/21 10:47 Charges/Coding Procedures Integumentary [id number]: [id number] Jerilyn subq tissue 20 sq cm/< (left posterior knee - 59 modifier) Physical Exam Const alert and oriented x3 General Appearance: cooperative HEENT normocephalic Resp normal respiratory effort Cardio regular rate Extremity normal capillary refill Skin Wound Narrative: The left ischial and sacral ulcer are now one ulcer (calling it the left buttock) since her operative debridement. It is pink and clean. She has bone exposure of both the sacrum and the left ischium. The right ischium is pink with bone exposure. The left posterior knee ulcer is smaller in diameter but continues to have depth, it is becoming difficult to pack it with silver alginate. Neuro CN's II-XII intact bilaterally Psych Appearance: grossly normal and well kempt Debridement Note Debridement Note Wound debrided: buttock ulcer (formally the left ischial and sacral ulcer) Laterality: Left Wound Grade/Stage: Stage IV Type of Debridement: Excisional debridement Anesthesia Used: 4% Lidocaine Solution Depth: Down to and including healthy tissue, in the subcutaneous layer, to muscle and to bone Percentage of wound debrided: 100 Instrument Used: 7mm curette Tissue Removed: Subcutaneous tissue and slough into the muscle Severity: Fat Layer Exposed Amount of bleeding with debridement: Mild Bleeding Controlled with: Pressure and Compression and gauze Patient tolerated procedure: Patient tolerated procedure well Debridement Free Text: There was a small bone chip that was imbedded into the s oft tissue that was removed without difficulty. This bone was not attached to anything but soft tissue. 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 Any new allergies or adverse reactions No Had a fall/change in ADL's that may No increase risk of falls Signs or symptoms of abuse and/or No neglect since last visit Have you been in the hospital since your No last visit? Has dressing in place as prescribed Yes Has compression in place as prescribed N/A Has offloadiing in place as prescribed Yes Experienced any changes in pain level or No management Pain Scale: 0-10 Numeric Is Patient Pain Free? Yes - Nurse 1 - General Ulcer Measurement Start: 04/22/21 10:47 Freq: Status: Active Protocol: Activity Type Activity Date Activity User E-Sign Co-Sign Detail Recorded Client Recorded Date Recorded By Document 04/22/21 10:47 MILAN [id number] 04/22/21 11:05 DL 04/22/21 10:47 Wound Center Nurse 1 #7- R ISCHIAL -Current Size (cm) - Length 6.5 -Current Size (cm) - Width 9.5 -Current Size (cm) - Depth 6.8 -Total Square Cm 61.75 -Photo Taken Yes -Exudate Amt Medium -Exudate Type Serosanguineous -Wound Margin Distinct, Outline Attached -Granulation Amt Medium (34-66%) -Granulation Quality Red -Necrosis Amt Medium (34-66%) -Necrotic Tissue Type Adherent Slough -Structure Exposed Bone -Texture (Annamaria-wound Skin Appearance) Scarring -Moisture (Annamaria-wound Skin Appearance) No Abnormality -Color (Annamaria-wound Skin Appearance) No Abnormality -Temperature (Annamaria-wound Skin No Abnormality Appearance) (Pt Warm) -Tenderness on Palpation (Annamaria-wound No Skin Appearance) -Ulcer Cleansing Soap and Water -Foul Odor after Cleansing No #5 L Post Knee -Current Size (cm) - Length 0.5 -Current Size (cm) - Width 0.5 -Current Size (cm) - Depth 1.1 -Total Square Cm 0.25 -Photo Taken Yes -Exudate Amt Small -Exudate Type Sanguineous -Wound Margin Distinct, Outline Attached -Granulation Amt Large (67-100%) -Granulation Quality Red -Necrosis Amt Small (1-33%) -Necrotic Tissue Type Adherent Slough -Structure Exposed N/A -Texture (Annamaria-wound Skin Appearance) Scarring -Moisture (Annamaria-wound Skin Appearance) No Abnormality -Color (Annamaria-wound Skin Appearance) No Abnormality -Temperature (Annamaria-wound Skin No Abnormality Appearance) (Pt Warm) -Tenderness on Palpation (Annamaria-wound No Skin Appearance) -Ulcer Cleansing Soap and Water -Foul Odor after Cleansing No #3 left ischium -Combined with other wound Yes #4 sacrum/L Ischial -Current Size (cm) - Length 22 -Current Size (cm) - Width 8 -Current Size (cm) - Depth 4.5 -Total Square Cm 176 -Photo Taken Yes -Exudate Amt Medium -Exudate Type Serosanguineous -Wound Margin Distinct, Outline Attached -Granulation Amt Medium (34-66%) -Granulation Quality Red -Necrosis Amt Medium (34-66%) -Necrotic Tissue Type Adherent Slough -Structure Exposed Bone -Texture (Annamaria-wound Skin Appearance) Scarring -Moisture (Annamaria-wound Skin Appearance) No Abnormality -Color (Annamaria-wound Skin Appearance) Assessed -Temperature (Annamaria-wound Skin No Abnormality Appearance) (Pt Warm) -Tenderness on Palpation (Annamaria-wound No Skin Appearance) -Ulcer Cleansing Soap and Water -Foul Odor after Cleansing No WC - Nurse 2 - General Ulcer CM Notes Start: 04/22/21 10:47 Freq: Status: Active Protocol: Activity Type Activity Date Activity User E-Sign Co-Sign Detail Recorded Client Recorded Date Recorded By Document 04/22/21 11:28 ESTRELLA [id number] 04/22/21 11:40 ESTRELLA 04/22/21 11:28 Wound Center Nurse 2 #7- R ISCHIAL -Time 11:29 -Correct Patient Yes -Correct Side, Site, Position Yes -Correct Procedure Yes -Procedure Performed Yes -Type of Procedure Debridement -Clinical Debridement Muscle / Fascia -Tissue Removed Muscle,Fascia -Post Debridement (cm) - Length 9.0 -Post Debridement (cm) - Width 9.0 -Post Debridement (cm) - Depth 4.5 -Total Square (Post) (cm) 81.00 -Area of Debridement (cm) - Length 9 -Area of Debridement (cm) - Width 9 -Total Square (Area) (cm) 81 -Tunneling No -Undermining/Tunneling No -Circular Undermining No -Wound/Ulcer Outcome Not Healed -Ulcer Cleansing Rinsed/ Irrigated with Saline -Foul Odor after Cleansing No -Bioengineered Tissue No -Bleeding Controlled with Pressure -Offloading No -Treatment Response Procedure Tolerated Well -Debridement - Subq, 1st 20sq cm No -Debridement - Muscle / Fascia, 1st Yes 20sq cm -Debridement, Muscle/Fascia, ea addt'l 4 20sq cm or part thereof #5 L Post Knee -Time 11:37 -Correct Patient Yes -Correct Side, Site, Position Yes -Correct Procedure Yes -Procedure Performed Yes -Type of Procedure Debridement -Clinical Debridement Subcutaneous -Tissue Removed Subcutaneous -Post Debridement (cm) - Length 1.0 -Post Debridement (cm) - Width 1.0 -Post Debridement (cm) - Depth 2.0 -Total Square (Post) (cm) 1.00 -Area of Debridement (cm) - Length 1.0 -Area of Debridement (cm) - Width 1.0 -Total Square (Area) (cm) 1.00 -Tunneling No -Undermining/Tunneling No -Circular Undermining No -Wound/Ulcer Outcome Not Healed -Ulcer Cleansing Rinsed/ Irrigated with Saline -Foul Odor after Cleansing No -Bioengineered Tissue No -Bleeding Controlled with Pressure -Offloading No -Treatment Response Procedure Tolerated Well -Debridement - Subq, 1st 20sq cm Yes #4 sacrum/L Ischial -Time 11:29 -Correct Patient Yes -Correct Side, Site, Position Yes -Correct Procedure Yes -Procedure Performed Yes -Type of Procedure Debridement -Clinical Debridement Bone -Tissue Removed Non-viable tissue -Post Debridement (cm) - Length 16.0 -Post Debridement (cm) - Width 19.0 -Post Debridement (cm) - Depth 7.0 -Total Square (Post) (cm) 304.00 -Area of Debridement (cm) - Length 16 -Area of Debridement (cm) - Width 19 -Total Square (Area) (cm) 304 -Tunneling No -Undermining/Tunneling No -Circular Undermining No -Wound/Ulcer Outcome Not Healed -Ulcer Cleansing Rinsed/ Irrigated with Saline -Foul Odor after Cleansing No -Bioengineered Tissue No -Bleeding Controlled with Pressure -Offloading No -Treatment Response Procedure Tolerated Well -Debridement - Muscle / Fascia, 1st No 20sq cm -Debridement - Bone, 1st 20sq cm Yes -Debridement, Bone, ea addt'l 20sq cm 11 or part thereof Pain Scale: 0-10 Numeric Is Patient Pain Free? Yes WC - Nurse 3 - General Ulcer D/C NN Start: 04/22/21 10:47 Freq: Status: Active Protocol: Activity Type Activity Date Activity User E-Sign Co-Sign Detail Recorded Client Recorded Date Recorded By Document 04/22/21 11:48 DL [id number] 04/22/21 12:01 DL 04/22/21 11:48 Wound Care Nurse 3 #7- R ISCHIAL -Ulcer Cleansing Soap and Water -Foul Odor after Cleansing No -Other Dressing moist to dry today -Primary Dressing Covered/Secured with Dry Gauze, Secured with Tape -Other Covering ABD #5 L Post Knee -Ulcer Cleansing Soap and Water -Foul Odor after Cleansing No -Primary Dressing Applied Nugauze, Iodoform -Primary Dressing Covered/Secured with Dry Gauze, Secured with Tape -Nugauze, Iodoform 1/4 1 #4 sacrum/L Ischial -Ulcer Cleansing Soap and Water -Foul Odor after Cleansing No -Other Dressing wet to dry today -Primary Dressing Covered/Secured with Dry Gauze, Secured with Tape -Other Covering ABD Treatment Response Procedure Tolerated Well Pain Scale: 0-10 Numeric Is Patient Pain Free? Yes WC - Visit Discharge Discharge Condition Stable Ambulatory Status Wheelchair Transportation Private Auto Facility Type Home Health Orders Sent Yes Additional Wound Wound debrided: Ischial ulcer Laterality: Right Wound Grade/Stage: Stage IV Type of Debridement: Excisional debridement Anesthesia Used: 4% Lidocaine Solution Depth: Down to and including healthy tissue, in the subcutaneous layer and to muscle Percentage of wound debrided: 100 Instrument Used: 7mm curette Tissue Removed: Subcutaneous tissue and slough into the muscle Severity: Fat Layer Exposed Amount of bleeding with debridement: Mild Bleeding Controlled with: Pressure and Compression and gauze Patient tolerated procedure: Patient tolerated procedure well Additional Wound Wound debrided: Posterior knee ulcer Laterality: Left Wound Grade/Stage: Stage IV Type of Debridement: Excisional debridement Anesthesia Used: 4% Lidocaine Solution Depth: Down to and including healthy tissue and in the subcutaneous layer Percentage of wound debrided: 100 Instrument Used: 3mm curette Tissue Removed: Subcutaneous tissue and slough Severity: Fat Layer Exposed Amount of bleeding with debridement: Mild Bleeding Controlled with: Pressure Patient tolerated procedure: Patient tolerated procedure well Assessment/Plan Assessment/Plan (1) Decubitus ulcer of right ischium, stage 4: CODE(S): L89.314 - Pressure ulcer of right buttock, stage 4 (2) Ulcer of left knee: CODE(S): L97.829 - Non-pressure chronic ulcer of other part of left lower leg with unspecified severity QUALIFIERS: Non-pressure ulcer stage: with fat layer exposed Qualified Code(s): L97.822 - Non-pressure chronic ulcer of other part of left lower leg with fat layer exposed (3) Decubitus ulcer of left buttock, stage 4: CODE(S): L89.324 - Pressure ulcer of left buttock, stage 4 (4) Pressure sore of left ischium, stage 4: CODE(S): L89.324 - Pressure ulcer of left buttock, stage 4 (5) Sacral decubitus ulcer, stage IV: CODE(S): L89.154 - Pressure ulcer of sacral region, stage 4 (6) Paraplegia following spinal cord injury: CODE(S): G82.20 - Paraplegia, unspecified (7) Osteomyelitis of pelvis: CODE(S): M86.9 - Osteomyelitis, unspecified (8) Metastatic renal cell carcinoma to bone: CODE(S): C79.51 - Secondary malignant neoplasm of bone; C64.9 - Malignant neoplasm of unspecified kidney, except renal pelvis PLAN: Wound care - Dakins 0.25% solution moistened gauze to the left buttock ulcer (left ischium and sacral ulcer are now one ulcer) and the right ischial ulcer topped with super absorber/ABD daily and as needed. Will order wound VAC for these two ulcers that can be applied by home health when it is approved. Wound VAC will be at 150 mmHg to have dressings changed 3 times per week. The left posterior knee ulcer will start packing iodiform gauze into that ulcer daily and covered with gauze. She is currently on Linezolid and Augmentin via ID. Will have her follow up with ID since her operative cultures came back positive for osteomyelitis in 3 different cultures to see if there is anything further that ID would like to do the culture results. Stressed the importance of off loading throughout the day. Patient states that they are meeting with someone about a new wheelchair. She is hoping it will allow her to off load more easily. Follow up two weeks.
[2021-05-06 11:24] VITALS: BP 92/52; PULSE 88; RESP 22; TEMP 36.6
--- NOTE | 2021-05-06 13:50 | PN.PCM_ITS ---
History of Present Illness Date of Service: 05/06/21 Chief Complaint: Sacral pressure sore, Stage IV, and left ischial pressure sore, Stage IV. History of Wound: 55 year old female with a history of renal cancer and metastasis to the bone presented to the [facility] with a sacral pressure sore and left ischial pressure sore. was admitted on 07/11/20 and discharged on 07/13/20 for sepsis related to an infected decubitus ulcer. She has been a paraplegic for 2.5 years after her back hardware broke. Her Oncologist is Dr. Valiente and she is on Cabometyx. Surgery 04/10/21 for 1. Excision right ischial pressure ulcer, osteomyelitis. Stage IV, with partial ostectomy for osteomyelitis. 2. Excision sacral pressure ulcer, stage IV, with partial ostectomy for osteomyelitis. 3. Excision left ischial pressure ulcer, stage IV, with partial ostectomy for osteomyelitis. Pathology from 04/10/21 - Sacral tissue show focal ulceration, acute and chronic inflammation and granulation tissue reaction. Sacral bone show pieces of bone with acute and chronic osteomyelitis and reactive changes. Left ischial tissue show focal ulceration, acute and chronic inflammation, granulation tissue reaction and fat necrosis. Left ischial bone show pieces of bone with acute and chronic osteomyelitis and reactive changes. Right ischial tissue shows focal ulceration with acute and chronic inflammation and fat necrosis. Right ischial bone pieces of bone with acute and chronic osteomyelitis and reactive change. Operative cultures: Right ischial bone positive for Corynebacterium striatum, and Staphylococcus epidermidis. Right ischial tissue positive for Coag Negative Staph, Enterococcus faecalis and Corynebacterium striatum and Aspirgillus fumigatus. Left ischial bone had no growth. Left ischial tissue positive for Brai parapsilosis and Staphylococcus epidermidis, Clostridium species and Anaerobic cocci. Sacral bone and tissue positive for Corynebacterium striatum. She was treated while hospitalized with IV Vancomycin and Zosyn. Upon discharge she has been taking Linezolid and Augmentin. Surgery on 09/19/20 for 1. Excision left ischial pressure sore, Stage IV, with partial ostectomy for osteomyelitis. 2. Excision sacral pressure sore, Stage IV. Discharged 09/26/20. Ulcer to left posterior knee caused by her urine leg bag rubbing against her skin. Her first noticed it as scab. Wound culture obtained 11/19/20 which was positive for Staphylococcus aureus and Corynebacterium striatum and is being treated with Augmentin. She obtained second degree ko on her anterior thighs bilaterally when placing a rice pack that was too hot, they have since healed. Wound care - Wound VAC at 150 mmHg to the Left buttock ulcer and the right ischial ulcer, three times per week. Aquacel -Ag (or silver alginate) packed into the left posterior knee ulcer daily, cover with gauze or ABD. Right anterior thigh ulcer and left anterior leg are healed. Wound culture of new right ischial ulcer from 04/02/21 done during a nurse visit was positive for Corynebacterium striatum and Enterococcus faecalis. She has not been treated for this at this time. She is being sent to the ED for further evaluation of this ulcer because of the need for possible operative debridement. Wound culture of sacral ulcer 01/07/21 positive for Corynebacterium striatum, Streptococcus mitis/oralis, Enterococcus faecalis, Anaerobic cocci, Actinomyces bovis, Bacteroides caccae, Bacteroides thetaiotaomicron. She was started on Clindamycin and Augmentin along with probiotic to treat the wound culture. Wound culture of left posterior knee 11/19/20 positive for Staphylococcus aureus and Corynebacterium striatum. She has been started on Augmentin. Operative wound cultures: Ischial pressure sore tissue positive for Staphylococcus aureus, Streptococcus group G, Streptococcus mitis/oralis, Tianna erobic cocci and Bacteroides pyogenes. Ischial bone culture Staphylococcus aureus, Enterococcus faecalis, Streptococcue mitis/oralis , Anaerobic cocci, and Bacteroides pyogenes. Sacral tissue positive Staphylococcus aureus, Streptococcus mitis/oralis, Anaerobic cocci and Bacteroides pyogenes. Vancomycin IV had to be stopped due elevated liver enzymes. The other IV antibiotics that would be sensitive would cost the patient too much per week and patient doesn't want placed in a facility for IV antibiotics. She decided to start Augmentin po, which will not have as good bone coverage as an IV antibiotics would have. She had been sitting in her wheelchair up to 12 hours a day while her is at work. They have someone come and help her out of bed in the morning and get her into her wheelchair. She has a new cushion on her wheelchair from the past several months. Wound culture was done on 07/24/20. The left ischial pressure sore was positive for Pseudomonas oryzihabitans and MRSE. The sacral pressure sore was positive for E.coli, Entercoccus faecalis, Methicillin resistant Staphylococcus haemolyticus. She was started Doxycycline, Cipro and Augmentin. She was hospitalized 12/27/20 - 01/01/21 for Septic shock and Acute complicated UTI which showed E. coli. She was treated with IV antibiotics while hospitalized and discharged home on Amoxicillin. Today she denies fever, chills at this time but has had them on and off recently. Encourage nutritional supplementation with protein to help the healing process. Progress of Wound: The left ischial and sacral ulcer are now one ulcer since her operative debridement. It is pink. She has bone exposure of both the sacrum and the left ischium. The right ischium is pink with bone exposure. There is good granulation tissue present using the wound VAC. The left posterior knee ulcer is stable and continues to have significant depth. Objective Data Objective Data Vital Signs: Vital Signs Temp Pulse Resp BP 98 F 88 22 H 92/52 L 05/06/21 11:24 05/06/21 11:24 05/06/21 11:24 05/06/21 11:24 Charges/Coding Procedures Integumentary [id number]: [id number] Jerilyn musc/fascia 20 sq cm/< (24 modifier Left posterior knee ulcer) Physical Exam Const alert and oriented x3 HEENT normocephalic Resp normal respiratory effort Cardio regular rate Extremity normal capillary refill General Extremity: Negative for edema Skin Wound Narrative: The left ischial and sacral ulcer are now one ulcer since her operative debridement. It is pink. She has bone exposure of both the sacrum and the left ischium. The right ischium is pink with bone exposure. There is good granulation tissue present using the wound VAC. The left posterior knee ulcer is stable and continues to have significant depth. Neuro CN's II-XII intact bilaterally Psych Appearance: grossly normal Debridement Note Debridement Note Wound debrided: left buttock ulcer (which encompasses the left ischial and sacral ulcers) Wound Grade/Stage: Stage IV Type of Debridement: Excisional debridement Anesthesia Used: 4% Lidocaine Solution Depth: Down to and including healthy tissue, in the subcutaneous layer and to muscle Percentage of wound debrided: 100 Instrument Used: 7mm curette Tissue Removed: Subcutaneous tissue and slough into the muscle Severity: Fat Layer Exposed Amount of bleeding with debridement: Mild Bleeding Controlled with: Pressure and Compression and gauze Patient tolerated procedure: Patient tolerated procedure well Post-Debridement Measurements and Additional Note: Post-Debridement Measurements/Treatment WC - Nurse 1 - General Ulcer Assessment Start: 04/22/21 10:47 Freq: Status: Active Protocol: YOLA Activity Type Activity Date Activity User E-Sign Co-Sign Detail Recorded Client Recorded Date Recorded By Document 04/22/21 10:47 DL [id number] 04/22/21 11:05 DL Document 05/06/21 11:24 DL [id number] 05/06/21 11:42 DL 04/22/21 05/06/21 10:47 11:24 WC - Today's Visit Information Type of service Follow-up Visit Follow-up Visit (Physician/PERFORMANCE TEST ENGINEER (Physician/PERFORMANCE TEST ENGINEER ) ) Arrival Mode Wheelchair Wheelchair Transfer Assistance Manual,None None Patient Identification Verified (Name & Yes Yes ) Patient Requires Transmission-Based No Precautions Safety Precautions Fall Prevention Vital Signs Temperature (97.8 F-99.1 F) 98.6 F 98 F Temperature Source Temporal Temporal Pulse Rate (60-100) 98 88 Pulse Location Monitor Monitor Respiratory Rate (12-18) 20 H 22 H Respiratory rate source Observation Blood Pressure (90/60-120/80) 89/59 L 92/52 L Blood Pressure Mean (mm Hg) 69 65 Source Monitor Monitor History Since Last Visit- (Skip if this is Patient's initial visit) Have you changed medications since your No No last visit? Any new allergies or adverse reactions No No Had a fall/change in ADL's that may No No increase risk of falls Signs or symptoms of abuse and/or No No neglect since last visit Have you been in the hospital since your No last visit? Has dressing in place as prescribed Yes Yes Has compression in place as prescribed N/A N/A Has offloadiing in place as prescribed Yes No Experienced any changes in pain level or No No management Pain Scale: 0-10 Numeric Is Patient Pain Free? Yes Yes Teaching: Wound Center *Infection -Teaching Method Demonstration BRITTA - Nurse 1 - General Ulcer Measurement Start: 04/22/21 10:47 Freq: Status: Active Protocol: Activity Type Activity Date Activity User E-Sign Co-Sign Detail Recorded Client Recorded Date Recorded By Document 04/22/21 10:47 DL [id number] 04/22/21 11:05 DL Document 05/06/21 11:24 DL [id number] 05/06/21 11:42 DL 04/22/21 05/06/21 10:47 11:24 Wound Center Nurse 1 #7- R ISCHIAL -Current Size (cm) - Length 6.5 11 -Current Size (cm) - Width 9.5 4.8 -Current Size (cm) - Depth 6.8 5.1 -Total Square Cm 61.75 52.8 -Photo Taken Yes No -Exudate Amt Medium Medium -Exudate Type Serosanguineous Serosanguineous -Wound Margin Distinct, Distinct, Outline Outline Attached Attached -Granulation Amt Medium (34-66%) Large (67-100%) -Granulation Quality Red Red -Necrosis Amt Medium (34-66%) Medium (34-66%) -Necrotic Tissue Type Adherent Slough Adherent Slough -Structure Exposed Bone Bone -Texture (Annamaria-wound Skin Appearance) Scarring Scarring -Moisture (Annamaria-wound Skin Appearance) No Abnormality No Abnormality -Color (Annamaria-wound Skin Appearance) No Abnormality No Abnormality -Temperature (Annamaria-wound Skin No Abnormality No Abnormality Appearance) (Pt Warm) (Pt Warm) -Tenderness on Palpation (Annamaria-wound No No Skin Appearance) -Ulcer Cleansing Soap and Water Not Cleansed -Foul Odor after Cleansing No No -Anesthetic Used 4% Lidocaine Solution #5 L Post Knee -Current Size (cm) - Length 0.5 1 -Current Size (cm) - Width 0.5 1.1 -Current Size (cm) - Depth 1.1 1.3 -Total Square Cm 0.25 1.1 -Photo Taken Yes No -Exudate Amt Small Medium -Exudate Type Sanguineous Serosanguineous -Wound Margin Distinct, Distinct, Outline Outline Attached Attached -Granulation Amt Large (67-100%) Large (67-100%) -Granulation Quality Red Red -Necrosis Amt Small (1-33%) Medium (34-66%) -Necrotic Tissue Type Adherent Slough Adherent Slough -Structure Exposed N/A Bone,N/A -Texture (Annamaria-wound Skin Appearance) Scarring Scarring -Moisture (Annamaria-wound Skin Appearance) No Abnormality No Abnormality -Color (Annamaria-wound Skin Appearance) No Abnormality No Abnormality -Temperature (Annamaria-wound Skin No Abnormality No Abnormality Appearance) (Pt Warm) (Pt Warm) -Tenderness on Palpation (Annamaria-wound No Skin Appearance) -Ulcer Cleansing Soap and Water Soap and Water -Foul Odor after Cleansing No Yes, Due to Product Use -Anesthetic Used 4% Lidocaine Solution #3 left ischium -Combined with other wound Yes #4 sacrum/L Ischial -Current Size (cm) - Length 22 24.8 -Current Size (cm) - Width 8 8 -Current Size (cm) - Depth 4.5 4 -Total Square Cm 176 198.4 -Photo Taken Yes No -Exudate Amt Medium Medium -Exudate Type Serosanguineous Serosanguineous -Wound Margin Distinct, Distinct, Outline Outline Attached Attached -Granulation Amt Medium (34-66%) Large (67-100%) -Granulation Quality Red Red -Necrosis Amt Medium (34-66%) Small (1-33%) -Necrotic Tissue Type Adherent Slough Adherent Slough -Structure Exposed Bone Bone -Texture (Annamaria-wound Skin Appearance) Scarring Scarring -Moisture (Annamaria-wound Skin Appearance) No Abnormality No Abnormality -Color (Annamaria-wound Skin Appearance) Assessed No Abnormality -Temperature (Annamaria-wound Skin No Abnormality No Abnormality Appearance) (Pt Warm) (Pt Warm) -Tenderness on Palpation (Annamaria-wound No No Skin Appearance) -Ulcer Cleansing Soap and Water Soap and Water -Foul Odor after Cleansing No No -Anesthetic Used 4% Lidocaine Solution WC - Nurse 2 - General Ulcer CM Notes Start: 04/22/21 10:47 Freq: Status: Active Protocol: Activity Type Activity Date Activity User E-Sign Co-Sign Detail Recorded Client Recorded Date Recorded By Document 04/22/21 11:28 ESTRELLA [id number] 04/22/21 11:40 JF Edit Result 04/22/21 11:28 ESTRELLA (1) [id number] 04/23/21 06:41 PL Document 05/06/21 11:49 ESTRELLA [id number] 05/06/21 12:00 ESTRELLA (1) #7- R ISCHIAL - Debridement, Muscle/Fascia, ea addt'l 4 => 19 20sq cm or part thereof #4 sacrum/L Ischial - Debridement - Muscle / Fascia, 1st No => 20sq cm - Debridement - Bone, 1st 20sq cm Yes => No - Debridement, Bone, ea addt'l 20sq cm 11 => or part thereof 04/22/21 05/06/21 11:28 11:49 Wound Center Nurse 2 #7- R ISCHIAL -Time 11:29 11:50 -Correct Patient Yes Yes -Correct Side, Site, Position Yes Yes -Correct Procedure Yes Yes -Procedure Performed Yes Yes -Type of Procedure Debridement Debridement -Clinical Debridement Muscle / Fascia Muscle / Fascia -Tissue Removed Muscle,Fascia Muscle -Post Debridement (cm) - Length 9.0 11 -Post Debridement (cm) - Width 9.0 6 -Post Debridement (cm) - Depth 4.5 6.4 -Total Square (Post) (cm) 81.00 66 -Area of Debridement (cm) - Length 9 11 -Area of Debridement (cm) - Width 9 6.0 -Total Square (Area) (cm) 81 66.0 -Tunneling No No -Undermining/Tunneling No No -Circular Undermining No No -Wound/Ulcer Outcome Not Healed Not Healed -Ulcer Cleansing Rinsed/ Rinsed/ Irrigated with Irrigated with Saline Saline -Foul Odor after Cleansing No No -Bioengineered Tissue No No -Bleeding Controlled with Pressure Pressure -Offloading No No -Treatment Response Procedure Procedure Tolerated Well Tolerated Well -Debridement - Subq, 1st 20sq cm No -Debridement - Muscle / Fascia, 1st Yes No 20sq cm -Debridement, Muscle/Fascia, ea addt'l 19 20sq cm or part thereof #5 L Post Knee -Time 11:37 11:57 -Correct Patient Yes Yes -Correct Side, Site, Position Yes Yes -Correct Procedure Yes Yes -Procedure Performed Yes Yes -Type of Procedure Debridement Debridement -Clinical Debridement Subcutaneous Muscle / Fascia -Tissue Removed Subcutaneous Muscle -Post Debridement (cm) - Length 1.0 1.2 -Post Debridement (cm) - Width 1.0 1.5 -Post Debridement (cm) - Depth 2.0 1.8 -Total Square (Post) (cm) 1.00 1.80 -Area of Debridement (cm) - Length 1.0 1.2 -Area of Debridement (cm) - Width 1.0 1.5 -Total Square (Area) (cm) 1.00 1.80 -Tunneling No No -Undermining/Tunneling No No -Circular Undermining No No -Wound/Ulcer Outcome Not Healed Not Healed -Ulcer Cleansing Rinsed/ Rinsed/ Irrigated with Irrigated with Saline Saline -Foul Odor after Cleansing No No -Bioengineered Tissue No No -Bleeding Controlled with Pressure Pressure -Offloading No No -Treatment Response Procedure Procedure Tolerated Well Tolerated Well -Debridement - Subq, 1st 20sq cm Yes No -Debridement - Muscle / Fascia, 1st No 20sq cm #4 sacrum/L Ischial -Time 11:29 11:50 -Correct Patient Yes Yes -Correct Side, Site, Position Yes Yes -Correct Procedure Yes Yes -Procedure Performed Yes Yes -Type of Procedure Debridement Debridement -Clinical Debridement Bone Muscle / Fascia -Tissue Removed Non-viable Muscle tissue -Post Debridement (cm) - Length 16.0 12 -Post Debridement (cm) - Width 19.0 19 -Post Debridement (cm) - Depth 7.0 3.5 -Total Square (Post) (cm) 304.00 228 -Area of Debridement (cm) - Length 16 12 -Area of Debridement (cm) - Width 19 19 -Total Square (Area) (cm) 304 228 -Tunneling No No -Undermining/Tunneling No Yes -Undermining/Tunneling Starts (O'clock 11 ) -Undermining/Tunneling Ends (O'clock) 4 -Maximum Distance (cm) 4.6 -Circular Undermining No No -Wound/Ulcer Outcome Not Healed Not Healed -Ulcer Cleansing Rinsed/ Rinsed/ Irrigated with Irrigated with Saline Saline -Foul Odor after Cleansing No No -Bioengineered Tissue No No -Bleeding Controlled with Pressure Pressure -Offloading No No -Treatment Response Procedure Procedure Tolerated Well Tolerated Well -Debridement - Muscle / Fascia, 1st Yes 20sq cm -Debridement, Muscle/Fascia, ea addt'l 14 20sq cm or part thereof -Debridement - Bone, 1st 20sq cm No Pain Scale: 0-10 Numeric Is Patient Pain Free? Yes Yes WC - Nurse 3 - General Ulcer D/C NN Start: 04/22/21 10:47 Freq: Status: Active Protocol: Activity Type Activity Date Activity User E-Sign Co-Sign Detail Recorded Client Recorded Date Recorded By Document 04/22/21 11:48 MILAN [id number] 04/22/21 12:01 DL Document 05/06/21 12:41 DL [id number] 05/06/21 12:44 DL 04/22/21 05/06/21 11:48 12:41 Wound Care Nurse 3 #7- R ISCHIAL -Ulcer Cleansing Soap and Water Soap and Water -Foul Odor after Cleansing No No -Negative Pressure Wound Therapy Continue -Setting (mmHg) 150 -Negative Pressure is Continuous -Other Dressing moist to dry today -Primary Dressing Covered/Secured with Dry Gauze, Secured with Tape -Other Covering ABD -NPWT Application Charge NPWT </= 50 sq cm ($) #5 L Post Knee -Ulcer Cleansing Soap and Water Soap and Water -Foul Odor after Cleansing No No -Primary Dressing Applied Nugauze, Aquacel AG 4x4 Iodoform -Primary Dressing Covered/Secured with Dry Gauze, Dry Gauze, Secured with Secured with Tape Tape -Aquacel AG 4x4 1 -Nugauze, Iodoform 1/4 1 #4 sacrum/L Ischial -Ulcer Cleansing Soap and Water Soap and Water -Foul Odor after Cleansing No No -Negative Pressure Wound Therapy Continue -Setting (mmHg) 150 -Negative Pressure is Continuous -Other Dressing wet to dry today -Primary Dressing Covered/Secured with Dry Gauze, Secured with Tape -Other Covering ABD -NPWT Application Charge NPWT </= 50 sq cm ($) Treatment Response Procedure Procedure Tolerated Well Tolerated Well Pain Scale: 0-10 Numeric Is Patient Pain Free? Yes Yes WC - Visit Discharge Discharge Condition Stable Stable Ambulatory Status Wheelchair Wheelchair Transportation Private Auto Private Auto Accompanied by Facility Type Home Health Home Health Orders Sent Yes Yes Additional Wound Wound debrided: Ischial ulcer Laterality: Right Wound Grade/Stage: Stage IV Type of Debridement: Excisional debridement Anesthesia Used: 4% Lidocaine Solution Depth: Down to and including healthy tissue, in the subcutaneous layer and to muscle Percentage of wound debrided: 100 Instrument Used: 7mm curette Tissue Removed: Subcutaneous tissue and slough, into the muscle Severity: Fat Layer Exposed Amount of bleeding with debridement: Mild Bleeding Controlled with: Pressure and Compression and gauze Patient tolerated procedure: Patient tolerated procedure well Additional Wound Wound debrided: posterior knee ulcer Laterality: Left Wound Grade/Stage: Stage IV Type of Debridement: Excisional debridement Anesthesia Used: 4% Lidocaine Solution Depth: Down to and including healthy tissue, in the subcutaneous layer and to muscle Percentage of wound debrided: 100 Instrument Used: 3mm curette Tissue Removed: Subcutaneous tissue and slough into the muscle. Severity: Fat Layer Exposed Amount of bleeding with debridement: Mild Bleeding Controlled with: Pressure and Compression and gauze Patient tolerated procedure: Patient tolerated procedure well Assessment/Plan Assessment/Plan (1) Pressure ulcer of left buttock, stage 4: CODE(S): L89.324 - Pressure ulcer of left buttock, stage 4 (2) Decubitus ulcer of right ischium, stage 4: CODE(S): L89.314 - Pressure ulcer of right buttock, stage 4 (3) Ulcer of left knee: CODE(S): L97.829 - Non-pressure chronic ulcer of other part of left lower leg with unspecified severity QUALIFIERS: Non-pressure ulcer stage: with fat layer exposed Qualified Code(s): L97.822 - Non-pressure chronic ulcer of other part of left lower leg with fat layer exposed (4) Osteomyelitis of pelvis: CODE(S): M86.9 - Osteomyelitis, unspecified (5) Acute postoperative anemia due to expected blood loss: CODE(S): D62 - Acute posthemorrhagic anemia (6) Paraplegia following spinal cord injury: CODE(S): G82.20 - Paraplegia, unspecified (7) Malignant neoplasm of unspecified kidney, except renal pelvis: CODE(S): C64.9 - Malignant neoplasm of unspecified kidney, except renal pelvis (8) Chronic pain syndrome: CODE(S): G89.4 - Chronic pain syndrome PLAN: Wound care - Wound VAC at 150 mmHg to the left buttock ulcer (left ischium and sacral ulcer are now one ulcer) and the right ischial ulcer three times per week. The left posterior knee ulcer will pack with Aquacel-Ag (silver alginate) daily and cover with gauze/ABD pad. Completed Linezolid and Augmentin via ID. Stressed the importance of off loading throughout the day. Patient states that they are meeting with someone about a new wheelchair. She is hoping it will allow her to off load more easily. Right ischial tissue culture from 04/10/21 positive for Aspergillus fumigatus. Left ischial ulcer positive for bari parapsilosis. Will start her on Fluconazole. Follow up two weeks.
== END 2021-05-06 23:59 | disposition home or self-care (01) ==
LOC: WC 11:15
PROVIDERS: PCP Family Medicine; Visit Provider Nurse Practitioner Family
DX: L89.324 Pressure ulcer of left buttock, stage 4 (principal); C79.51 Secondary malignant neoplasm of bone; L89.314 Pressure ulcer of right buttock, stage 4; L89.154 Pressure ulcer of sacral region, stage 4; G82.20 Paraplegia, unspecified; L97.822 Non-pressure chronic ulcer of other part of left lower leg with fat layer exposed; M46.28 Osteomyelitis of vertebra, sacral and sacrococcygeal region; C64.9 Malignant neoplasm of unspecified kidney, except renal pelvis; D62 Acute posthemorrhagic anemia; G89.4 Chronic pain syndrome; R74.8 Abnormal levels of other serum enzymes
CPT/HCPCS: 11042; 11043; 11044; 11046; 11047; 97605

== ENCOUNTER 2021-05-20 11:00 | Outpatient (RCR) | payer MEDICARE, SELFPAY ==
[2021-05-07 00:41] VITALS: BP 92/52; PULSE 88; RESP 22; TEMP 36.6
[2021-05-20 11:05] VITALS: PULSE 88; TEMP 36.3
--- NOTE | 2021-05-20 12:05 | PCM.WC.PN ---
History of Present Illness Date of Service: 05/20/21 Chief Complaint: Sacral pressure sore, Stage IV, and left ischial pressure sore, Stage IV. History of Wound: 55 year old female with a history of renal cancer and metastasis to the bone presented [facility] with a sacral pressure sore and left ischial pressure sore. was admitted on 07/11/20 and discharged on 07/13/20 for sepsis related to an infected decubitus ulcer. She has been a paraplegic for 2.5 years after her back hardware broke. Her Oncologist is Dr. Valiente and she is on Cabometyx. Surgery 04/10/21 for 1. Excision right ischial pressure ulcer, osteomyelitis. Stage IV, with partial ostectomy for osteomyelitis. 2. Excision sacral pressure ulcer, stage IV, with partial ostectomy for osteomyelitis. 3. Excision left ischial pressure ulcer, stage IV, with partial ostectomy for osteomyelitis. Pathology from 04/10/21 - Sacral tissue show focal ulceration, acute and chronic inflammation and granulation tissue reaction. Sacral bone show pieces of bone with acute and chronic osteomyelitis and reactive changes. Left ischial tissue show focal ulceration, acute and chronic inflammation, granulation tissue reaction and fat necrosis. Left ischial bone show pieces of bone with acute and chronic osteomyelitis and reactive changes. Right ischial tissue shows focal ulceration with acute and chronic inflammation and fat necrosis. Right ischial bone pieces of bone with acute and chronic osteomyelitis and reactive change. Operative cultures: Right ischial bone positive for Corynebacterium striatum, and Staphylococcus epidermidis. Right ischial tissue positive for Coag Negative Staph, Enterococcus faecalis and Corynebacterium striatum. Left ischial bone had no growth. Left ischial tissue positive for Bari parapsilosis and Staphylococcus epidermidis, Clostridium species and Anaerobic cocci. Sacral bone and tissue positive for Corynebacterium striatum. She was treated while hospitalized with IV Vancomycin and Zosyn. Upon discharge she has been taking Linezolid and Augmentin. Surgery on 09/19/20 for 1. Excision left ischial pressure sore, Stage IV, with partial ostectomy for osteomyelitis. 2. Excision sacral pressure sore, Stage IV. Discharged 09/26/20. Ulcer to left posterior knee caused by her urine leg bag rubbing against her skin. Her first noticed it as scab. Wound culture obtained 11/19/20 which was positive for Staphylococcus aureus and Corynebacterium striatum and is being treated with Augmentin. She obtained second degree ko on her anterior thighs bilaterally when placing a rice pack that was too hot, they have since healed. Wound care - Wound VAC at 150 mmHg to the Left buttock (sacral and left ischia ulcer combined) ulcer and the right ischial ulcers 3 days per week. Aquacel-ag packed into the left posterior knee ulcer daily. Cover with gauze or ABD. Dressings to be changed daily. Right anterior thigh ulcer and left anterior leg are healed. Wound culture of new right ischial ulcer from 04/02/21 done during a nurse visit was positive for Corynebacterium striatum and Enterococcus faecalis. She has not been treated for this at this time. She is being sent to the ED for further evaluation of this ulcer because of the need for possible operative debridement. Wound culture of sacral ulcer 01/07/21 positive for Corynebacterium striatum, Streptococcus mitis/oralis, Enterococcus faecalis, Anaerobic cocci, Actinomyces bovis, Bacteroides caccae, Bacteroides thetaiotaomicron. She was started on Clindamycin and Augmentin along with probiotic to treat the wound culture. Wound culture of left posterior knee 11/19/20 positive for Staphylococcus aureus and Corynebacterium striatum. She has been started on Augmentin. Operative wound cultures: Ischial pressure sore tissue positive for Staphylococcus aureus, Streptococcus group G, Streptococcus mitis/oralis, Anaerobic cocci and Bacteroides pyogenes. Ischial bone culture Staphylococcus aureus, Enterococcus faecalis, Streptococcue mitis/oralis , Anaerobic cocci, and Bacteroides pyogenes. Sacral tissue positive Staphylococcus aureus, Streptococcus mitis/oralis, Anaerobic cocci and Bacteroides pyogenes. Vancomycin IV had to be stopped due elevated liver enzymes. The other IV antibiotics that would be sensitive would cost the patient too much per week and patient doesn't want placed in a facility for IV antibiotics. She decided to start Augmentin po, which will not have as good bone coverage as an IV antibiotics would have. She had been sitting in her wheelchair up to 12 hours a day while her is at work. They have someone come and help her out of bed in the morning and get her into her wheelchair. She has a new cushion on her wheelchair from the past several months. Wound culture was done on 07/24/20. The left ischial pressure sore was positive for Pseudomonas oryzihabitans and MRSE. The sacral pressure sore was positive for E.coli, Entercoccus faecalis, Methicillin resistant Staphylococcus haemolyticus. She was started Doxycycline, Cipro and Augmentin. She was hospitalized 12/27/20 - 01/01/21 for Septic shock and Acute complicated UTI which showed E. coli. She was treated with IV antibiotics while hospitalized and discharged home on Amoxicillin. Today she denies fever, chills at this time but has had them on and off recently. Encourage nutritional supplementation with protein to help the healing process. Progress of Wound: The left ischial and sacral ulcer are now one ulcer since her operative debridement. It is pink. She has bone exposure of both the sacrum and the left ischium. The right ischium is pink with bone exposure. There is good granulation tissue present using the wound VAC. The left posterior knee ulcer is stable and continues to have significant depth. Objective Data Objective Data Vital Signs: Vital Signs Temp Pulse Resp BP 97.4 F L 88 22 H 92/52 L 05/20/21 11:05 05/20/21 11:05 05/07/21 00:41 05/07/21 00:41 Charges/Coding Procedures Integumentary [id number]: [id number] Jerilyn musc/fascia 20 sq cm/< (50 modifier) Physical Exam Const alert and oriented x3 General Appearance: cooperative HEENT normocephalic Head and Scalp: atraumatic Resp normal respiratory effort Cardio regular rate Extremity normal capillary refill Skin Wound Narrative: The left ischial and sacral ulcer are now one ulcer since her operative debridement. It is pink. She has bone exposure of both the sacrum and the left ischium. The right ischium is pink with bone exposure. There is good granulation tissue present using the wound VAC. The left posterior knee ulcer is stable and continues to have significant depth, it is pink and stable. Neuro CN's II-XII intact bilaterally Psych Appearance: grossly normal Debridement Note Debridement Note Wound debrided: buttock ulcer (which encompasses the left ischial and sacral ulcers) Laterality: Left Wound Grade/Stage: Stage IV Type of Debridement: Excisional debridement and Selective debridement Anesthesia Used: 4% Lidocaine Solution Depth: Down to and including healthy tissue, in the subcutaneous layer and to muscle Percentage of wound debrided: 100 Instrument Used: 7mm curette Tissue Removed: Nonviable tissue and slough into the muscle. There is bone exposed Severity: Fat Layer Exposed Amount of bleeding with debridement: Mild Bleeding Controlled with: Pressure and Compression and gauze Patient tolerated procedure: Patient tolerated procedure well Post-Debridement Measurements and Additional Note: Post-Debridement Measurements/Treatment [facility] Nurse 1 - General Ulcer Assessment Start: 05/20/21 11:05 Freq: Status: Active Protocol: [facility] Activity Type Activity Date Activity User E-Sign Co-Sign Detail Recorded Client Recorded Date Recorded By Document 05/20/21 11:05 CLAUS [id number] 05/20/21 11:24 KR 05/20/21 11:05 - Today's Visit Information Type of service Follow-up Visit (Physician/BARBECUE COOK ) Arrival Mode Wheelchair Accompanied by Patient Identification Verified (Name & Yes ) Vital Signs Temperature (97.8 F-99.1 F) 97.4 F L Temperature Source Temporal Pulse Rate (60-100) 88 Pulse Location Monitor Source Monitor Position Sitting Blood Pressure Location Left Arm History Since Last Visit- (Skip if this is Patient's initial visit) Have you changed medications since your No last visit? Any new allergies or adverse reactions No Had a fall/change in ADL's that may No increase risk of falls Signs or symptoms of abuse and/or No neglect since last visit Have you been in the hospital since your No last visit? Has dressing in place as prescribed Yes Has compression in place as prescribed N/A Has offloadiing in place as prescribed N/A Experienced any changes in pain level or No management Left Footwear Slipper Right Footwear Slipper Pain Scale: 0-10 Numeric Is Patient Pain Free? Yes [facility] Nurse 1 - General Ulcer Measurement Start: 05/20/21 11:05 Freq: Status: Active Protocol: Activity Type Activity Date Activity User E-Sign Co-Sign Detail Recorded Client Recorded Date Recorded By Document 05/20/21 11:05 CLAUS [id number] 05/20/21 11:24 KR 05/20/21 11:05 [facility] Nurse 1 #7- R ISCHIAL -Current Size (cm) - Length 9.1 -Current Size (cm) - Width 4.3 -Current Size (cm) - Depth 4.3 -Total Square Cm 39.13 -Exudate Amt Large -Exudate Type Serosanguineous -Wound Margin Thickened & Rolled Under -Granulation Amt Large (67-100%) -Granulation Quality Red -Necrosis Amt Small (1-33%) -Necrotic Tissue Type Adherent Slough -Structure Exposed Bone -Texture (Annamaria-wound Skin Appearance) Assessed, Scarring -Moisture (Annamaria-wound Skin Appearance) Assessed, Maceration -Color (Annamaria-wound Skin Appearance) No Abnormality, Assessed -Temperature (Annamaria-wound Skin No Abnormality Appearance) (Pt Warm) -Tenderness on Palpation (Annamaria-wound No Skin Appearance) -Ulcer Cleansing Soap and Water -Foul Odor after Cleansing No #5 L Post Knee -Current Size (cm) - Length 1.7 -Current Size (cm) - Width 1.9 -Current Size (cm) - Depth 1.5 -Total Square Cm 3.23 -Exudate Amt Medium -Exudate Type Yellow/Green -Wound Margin Distinct, Outline Attached -Granulation Quality Red -Necrosis Amt Large (67-100%) -Necrotic Tissue Type Adherent Slough -Texture (Annamaria-wound Skin Appearance) Assessed, Scarring -Temperature (Annamaria-wound Skin No Abnormality Appearance) (Pt Warm) -Tenderness on Palpation (Annamaria-wound No Skin Appearance) -Ulcer Cleansing Soap and Water -Foul Odor after Cleansing No #4 sacrum/L Ischial -Current Size (cm) - Length 19 -Current Size (cm) - Width 7.8 -Current Size (cm) - Depth 1.7 -Total Square Cm 148.2 -Undermining/Tunneling Starts (O'clock 8 ) -Undermining/Tunneling Ends (O'clock) 9 -Maximum Distance (cm) 2.2 -Exudate Amt Large -Exudate Type Serosanguineous -Wound Margin Distinct, Outline Attached -Granulation Amt Large (67-100%) -Granulation Quality Red -Necrosis Amt Small (1-33%) -Necrotic Tissue Type Adherent Slough -Structure Exposed Bone -Texture (Annamaria-wound Skin Appearance) Assessed, Scarring -Temperature (Annamaria-wound Skin No Abnormality Appearance) (Pt Warm) -Tenderness on Palpation (Annamaria-wound No Skin Appearance) -Ulcer Cleansing Soap and Water -Foul Odor after Cleansing No -Anesthetic Used 4% Lidocaine Solution Additional Wound Wound debrided: Ischial ulcer Laterality: Right Wound Grade/Stage: Stage IV Type of Debridement: Excisional debridement and Selective debridement Anesthesia Used: 4% Lidocaine Solution Depth: Down to and including healthy tissue, in the subcutaneous layer and to muscle Percentage of wound debrided: 100 Instrument Used: 7mm curette Tissue Removed: Nonviable tissue and slough into the muscle Severity: Fat Layer Exposed Amount of bleeding with debridement: Mild Bleeding Controlled with: Pressure and Compression and gauze Patient tolerated procedure: Patient tolerated procedure well Additional Wound Wound debrided: Posterior knee ulcer Laterality: Left Wound Grade/Stage: Stage IV Type of Debridement: Excisional debridement Anesthesia Used: 4% Lidocaine Solution Depth: Down to and including healthy tissue, in the subcutaneous layer and to muscle Percentage of wound debrided: 100 Instrument Used: 3mm curette Tissue Removed: Nonviable tissue and slough Severity: Fat Layer Exposed Amount of bleeding with debridement: Mild Bleeding Controlled with: Pressure and Compression and gauze Patient tolerated procedure: Patient tolerated procedure well Assessment/Plan Assessment/Plan (1) Pressure ulcer of left buttock, stage 4: CODE(S): L89.324 - Pressure ulcer of left buttock, stage 4 (2) Decubitus ulcer of right ischium, stage 4: CODE(S): L89.314 - Pressure ulcer of right buttock, stage 4 (3) Ulcer of left knee: CODE(S): L97.829 - Non-pressure chronic ulcer of other part of left lower leg with unspecified severity QUALIFIERS: Non-pressure ulcer stage: with fat layer exposed Qualified Code(s): L97.822 - Non-pressure chronic ulcer of other part of left lower leg with fat layer exposed (4) Osteomyelitis of pelvis: CODE(S): M86.9 - Osteomyelitis, unspecified (5) Paraplegia following spinal cord injury: CODE(S): G82.20 - Paraplegia, unspecified (6) Malignant neoplasm of unspecified kidney, except renal pelvis: CODE(S): C64.9 - Malignant neoplasm of unspecified kidney, except renal pelvis PLAN: Wound care - Wound VAC at 150 mmHg to the left buttock ulcer (left ischium and sacral ulcer are now one ulcer) and the right ischial ulcer three times per week. The left posterior knee ulcer will pack with Aquacel-Ag (silver alginate) daily and cover with gauze/ABD pad. Completed Linezolid and Augmentin via ID. Stressed the importance of off loading throughout the day. Patient states that they are meeting with someone about a new wheelchair. She is hoping it will allow her to off load more easily. Right ischial tissue culture from 04/10/21 positive for Aspergillus fumigatus. Left ischial ulcer positive for bari parapsilosis. Continue fluconazole. We will check a CMP at her next visit. Follow up two weeks.
== END 2021-06-06 23:59 | disposition home or self-care (01) ==
LOC: WC 11:00
PROVIDERS: PCP Family Medicine; Visit Provider Nurse Practitioner Family
DX: L89.324 Pressure ulcer of left buttock, stage 4 (principal); C79.51 Secondary malignant neoplasm of bone; L89.144 Pressure ulcer of left lower back, stage 4; L89.314 Pressure ulcer of right buttock, stage 4; L89.134 Pressure ulcer of right lower back, stage 4; L89.154 Pressure ulcer of sacral region, stage 4; G82.20 Paraplegia, unspecified; L97.822 Non-pressure chronic ulcer of other part of left lower leg with fat layer exposed; M46.28 Osteomyelitis of vertebra, sacral and sacrococcygeal region; C64.9 Malignant neoplasm of unspecified kidney, except renal pelvis; R74.8 Abnormal levels of other serum enzymes
CPT/HCPCS: 11043; 11046; 97605

== ENCOUNTER 2021-05-24 18:12 | Emergency (ER) | payer MEDICARE, SELFPAY ==
[2021-05-24 18:13] VITALS: BP 89/64; PULSE 110; RESP 14; TEMP 36.8; O2SAT 100; BMI 21.3
[2021-05-24 19:40] VITALS: BP 101/78; PULSE 91; RESP 18; O2SAT 99
[2021-05-24] MEDS: 0.9% Normal Saline 1,000 ML 1000 ML IV (19:48)
[2021-05-24] MEDS: proMETHazine 25 MG Tablet PO (19:48)
[2021-05-24 20:12] LABS: Absolute Lymphocyte Count 1.51 X10^3/uL (0.83-4.51); Absolute Neutrophil Count 7.1 X10^3/uL (2.0-7.7); Basophil# 0.04 X10^3/uL; Basophil% 0.4 % (0-1); Eosinophil# 0.16 X10^3/uL; Eosinophils% 1.7 % (0-5); Hematocrit 30.2 % (37-47); Hemoglobin 9.1 g/dL (12.0-15.0); Lymphocyte # 1.51 X10^3/ul (0.83-4.51); Mean Corp Hgb Conc 30.1 g/dL (32-36); Mean Corpuscular Hgb 25.9 pg (27.0-32.0); Mean Platelet Vol. 9.2 fl (6.2-12.0); Monocyte# 0.44 X10^3/uL; Monocyte% 4.7 % (0-10); NRBC Flagged by Analyzer 0 % (0-5); Neutrophil # 7.13 X10^3/uL (2.7-7.7); Neutrophil % 75.4 % (47-70); Platelet Count 664 K/mm3 (150-450); RBC Distribution Width CV 19.4 % (11.6-14.6); RBC Distribution Width SD 61.3 fl (35.1-43.9); Red Blood Count 3.51 M/mm3 (4.2-5.4); White Blood Count 9.5 K/mm3 (4.4-11.0)
[2021-05-24 20:33] LABS: ALB/GLOB Ratio 0.4 RATIO (0.9-2.4); AST(SGOT) 18 U/L (15-37); Alanine Aminotransfer ALT/SGPT 15 U/L (13-56); Albumin, Serum 2.1 g/dL (3.2-5.0); Alkaline Phosphatase 175 U/L (45-117); Anion Gap 8 (5-15); BUN 27 mg/dL (7-18); BUN/Creat Ratio 21.8 RATIO (10-20); Calcium,Total 12.9 mg/dL (8.5-10.1); Chloride 100 mmol/L (98-107); Creatinine, Serum 1.24 mg/dL (0.55-1.02); EST Glomerular Filtration Rate 47 mL/min (>60); Est Glom Filt Rate - Afr Amer 57 mL/min (>60); Estimated Creatinine Clearance 46.86 ml/min; Globulin 5.1 g/dL (2.2-4.2); Glucose 73 mg/dL (74-106); Lipase 81 U/L (73-393); Potassium 4.6 mmol/L (3.5-5.1); Protein, Total 7.2 g/dL (6.4-8.2); Sodium Level 135 mmol/L (136-145)
--- NOTE | 2021-05-24 20:51 | CT_ITS ---
STUDY: CT Abdomen And Pelvis W/ Contrast Injection 05/24/2021 9:06 PM REASON FOR EXAM: Female, 55 years old. ABDOMINAL PAIN nausea and vomiting TECHNIQUE: Transaxial images were obtained without oral contrast, and IV 75mL Isovue-370 intravenous contrast. Individualized dose optimization techniques were used for this CT. COMPARISON: 07.15.20. FINDINGS: The visualized lung bases are unremarkable. The visualized portions of the heart are within normal limits. Stable hypodensities in the right lobe of the liver. There are surgical clips in the gallbladder fossa consistent with a prior cholecystectomy. Normal spleen. There is diffuse atrophy of the pancreas. Spinal fixation hardware visualized. There is metallic hardware noted in the left hip. Normal bilateral adrenal glands. Surgically absent right kidney. No acute findings of the left kidney. Normal visualized stomach. Normal small intestine. Stool throughout the colon. There is non-visualization of the appendix. There are no acute findings of the abdominal aorta. Normal inferior vena cava. Subcentimeter mesenteric lymph nodes. Urinary bladder wall has wall thickening. This can be related to a partially contractile state. However, a cystitis is not excluded. Urinalysis should be performed in an effort to exclude cystitis. There is atrophy of the uterus.There is a Blount balloon catheter in the urinary bladder. There has been progression of the decubitus ulcerations with thickening and inflammatory changes in subcutaneous fat. The ulcer has extended to the right side. The ulcer has extended to the sacrum. No drainable abscess is seen. Destructive changes of the ischial tuberosities bilaterally and sacrum and coccyx. Findings concerning for osteomyelitis. Normal abdominal wall. Vacuum disc phenomenon. IMPRESSION: (NOT LISTED IN ORDER OF SIGNIFICANCE) Urinary bladder wall has wall thickening. This can be related to a partially contractile state. However, a cystitis is not excluded. Urinalysis should be performed in an effort to exclude cystitis. Destructive changes of the ischial tuberosities bilaterally and sacrum and coccyx. Findings concerning for osteomyelitis. Severe decubitus ulcerations. Other findings as above. Electronically Signed: Denis Burgess MD at 21:22 EDT Reading Location ID and State: [facility] / [place] , Service support , CT/Abdomen/Pelvis W IV Cont ONLY
--- NOTE | 2021-05-24 21:04 | EDS_ITS ---
HPI HPI - GI History of Present Illness Chief Complaint: Nausea/Vomiting Narrative Narrative: Patient presents with nausea and vomiting that she has had since yesterday. She has past medical history of paraplegia, with decubitus ulcer with wound VAC placed. She states that she went to take her pain medication yesterday morning, and vomited it back up. Since then, she has been unable to keep any food or fluids down. She has vomited multiple times to the point of dry heaving since yesterday. She denies any blood in her emesis. She had normal bowel movement today. She does not have abdominal pain but states she continues to be nauseated and is continuing to spit up. She denies any fevers or chills. No dysuria, or other symptoms. [facility] Medical History Acute postoperative anemia due to expected blood loss Acute renal failure KELLEE (acute kidney injury) Atelectasis of left lung Cancer Cardiology follow-up encounter Chronic pain syndrome Easy bruising Encephalopathy acute Excessive bleeding Fever Gastric reflux History of irregular heartbeat History of migraine History of non-ST elevation myocardial infarction (NSTEMI) (01/28/19) Immunocompromised state Indwelling urethral catheter present Low iron Malignant neoplasm of unspecified kidney, except renal pelvis Metastatic renal cell carcinoma to bone Non-ischemic cardiomyopathy Non-smoker Nonobstructive atherosclerosis of coronary artery Paralysis Paraplegia following spinal cord injury Post-menopausal Pressure sore of left ischium, stage 4 Pressure ulcer of left buttock, stage 4 Pulmonary embolism Rheumatoid arthritis Right pulmonary embolus (01/28/19) Sacral decubitus ulcer, stage IV Second degree burn of thigh Sepsis Sepsis Septic shock (01/29/19) Single kidney Takotsubo syndrome Thyroid disease Uses wheelchair Home Medications temazepam 30 mg PO QHS 12/12/18 [History Last Taken 04/07/21] apixaban 5 mg PO BID 02/07/19 [History Last Taken 04/08/21] acyclovir 400 mg tablet 400 mg PO DAILY tab 08/19/19 [History Last Taken 04/08/21] furosemide 20 mg tablet 20 mg PO BID tab 08/19/19 [History Last Taken 04/08/21] methadone 5 mg tablet 10 mg PO QHS tab 08/19/19 [History Last Taken 04/07/21] oxycodone 10 mg tablet 10 mg PO TID PRN PRN 08/19/19 [History Last Taken 04/07/21] baclofen 5 mg tablet 7.5 mg PO BID tab 11/16/19 [History Last Taken 04/08/21] gabapentin 100 mg capsule 100 mg PO BID 11/16/19 [History Last Taken 04/08/21] gabapentin 300 mg capsule 300 mg PO QHS cap 11/16/19 [History Last Taken 04/07/21] calcium carbonate [Calcium 500] 500 mg PO DAILY 07/11/20 [History Last Taken 04/08/21] cholecalciferol (vitamin D3) 25 mcg PO DAILY 07/11/20 [History Last Taken 04/08/21] levothyroxine [Euthyrox] 75 mcg PO MOTUWETHFRSA 07/11/20 [History Last Taken 04/08/21] levothyroxine [Euthyrox] 150 mcg PO PLASCENCIA 07/11/20 [History Last Taken 04/07/21] melatonin 20 mg PO QHS 07/11/20 [History Last Taken 04/07/21] methadone 15 mg PO DAILY 07/11/20 [History Last Taken 04/08/21] polyethylene glycol 3350 17 g PO QODAY 07/11/20 [History Last Taken 04/07/21] bisacodyl [Dulcolax (bisacodyl)] 5 mg PO QODAY 04/08/21 [History Last Taken 04/07/21] carvedilol 3.125 mg PO BID 04/08/21 [History Last Taken 04/08/21] potassium chloride 20 meq PO TID 04/08/21 [History Last Taken 04/08/21] amoxicillin-pot clavulanate 1 tab PO BID #28 tab 04/12/21 [Rx Last Taken Unknown] linezolid 600 mg PO BID #28 tab 04/12/21 [Rx Last Taken Unknown] fluconazole [Diflucan] 400 mg PO DAILY 30 Days #60 tab 05/13/21 [Rx Last Taken Unknown] promethazine 12.5 mg PO Q6H PRN #14 tab 05/24/21 [Rx Last Taken Unknown] Allergy/AdvReac Type Severity Reaction Status Date / Time levofloxacin [From Levaquin] AdvReac Vomiting Verified 05/24/21 18:17 ondansetron [From Zofran] AdvReac HEADACHE, Verified 05/24/21 18:17 SEVERE Family History Mother Lung cancer Father Lung cancer Surgical History History of cholecystectomy History of left heart catheterization (01/31/19) History of right nephrectomy (03/30/13) History of spinal surgery (2018) History of surgery History of vascular access device Social History household members: spouse housing: house Smoking Status: Never smoker alcohol intake: never substance use type: does not use ROS ROS ED ROS Narrative Constitutional: No fever, no chills. HEENT: No sore throat. No neck pain. No loss of vision. No rhinorrhea. Cardiovascular: No chest pain. No palpitations. No pedal edema. Respiratory: No cough, no shortness of breath. Abdominal: No abdominal pain. Positive nausea. Multiple episodes of nonbloody vomiting to the point of currently dry heaving. Genitourinary: No dysuria. No hematuria. Musculoskeletal: No myalgias. No arthralgias. Neurologic: No headaches. No dizziness. No lightheadedness. Skin: No rash. No change in color. Psychiatric: No depression. No anxiety. EXAM Physical Exam Narrative Exam Narrative: Afebrile. Vital signs noted. HEENT: Normocephalic. Atraumatic. PERRL, EOMI. Neck soft and supple. No point tenderness or step off. Cardiovascular: Regular rate and rhythm. No murmurs, rubs, or gallops appreciated. Respiratory: No tachypnea. Lungs clear to auscultation bilaterally. Gastrointestinal: Abdomen soft, nontender, with normoactive bowel sounds. No rebound or guarding. Neurological: Awake. Alert. Nonfocal, nonlateralizing. Positive paraplegia. Skin: No rash. Normal color. No pallor. Wound VAC placed on back. Musculoskeletal: No pedal edema. Full range of motion extremities. Psychiatric: Mildly flat affect. Const Vital Signs: 05/24/21 18:13 05/24/21 19:40 05/24/21 21:07 Temperature 98.2 F Temperature Source Temporal Pulse Rate 110 H 91 84 Respiratory Rate 14 18 18 Blood Pressure 89/64 L 101/78 109/69 Blood Pressure Mean 72 85 82 Pulse Ox 100 99 96 Oxygen Delivery Method Room Air Room Air Room Air MDM MDM MDM Narrative Medical decision making narrative: Patient was bolused IV fluids. CBC shows hemoglobin slightly low at 9.1, normal white count of 9.5. Elevated platelet count of 664. She has a sodium of 135 with a normal potassium of 4.6. Creatinine slightly elevated at 1.2 with a BUN of 27 consistent with dehydra tion. Glucose slightly above normal at 73. Lipase normal at 81. Her calcium is elevated at 12.9. She will be bolused more IV fluids. She states she has an intolerance to Zofran so she was administered a Phenergan oral tablet. In order to rule out obstruction I will obtain a CT of the abdomen pelvis with IV contrast. Her CT shows no evidence of obstruction. It does show osteomyelitis. There is also thickening of the bladder wall. However, patient has a indwelling Blount catheter with leg bag. In discussion with her , although the CT shows osteomyelitis, she does take antibiotics for this. She does not have an elevated white count. I do not think that this is a new finding. I do not feel that she needs admission. She did receive 2 L of IV fluids for her hypercalcemia. Additionally, her states that he was more worried about dehydration as her blood pressure usually runs in the low 90s systolically, and was 89 today. Upon repeat examination she is feeling mildly improved, but she states she feels tired. I do think this is a side effect of the Phenergan. She will be given a prescription for 14 tablets of the lesser strength Phenergan to take at home. I feel she be discharged safely home with follow-up. Patient and are agreeable to the plan. She will follow up with her primary care physician in the next few days/on Thursday. Return instructions were reviewed. Disposition is discharged home in stable condition. Lab Data Attestation: I reviewed the patient's lab results. Labs: Laboratory Results - last 24 hr 05/24/21 05/24/21 19:30 19:30 WBC 9.5 RBC 3.51 L Hgb 9.1 L Hct 30.2 L MCV 86.0 MCH 25.9 L MCHC 30.1 L RDW Std Deviation 61.3 H RDW Coeff of Deborah 19.4 H Plt Count 664 H MPV 9.2 Immature Gran % (Auto) 1.800 H Neut % (Auto) 75.4 H Lymph % (Auto) 16.[address] [place] % (Auto) 4.7 Eos % (Auto) 1.7 Baso % (Auto) 0.4 Absolute Neuts (auto) 7.1 Absolute Lymphs (auto) 1.51 Nucleated RBC % 0 Sodium 135 L Potassium 4.6 Chloride 100 Carbon Dioxide 27.0 Anion Gap 8 BUN 27 H Creatinine 1.24 H Estim Creat Clear Calc 46.86 Est GFR (MDRD) Af Amer 57 L Est GFR (MDRD) Non-Af 47 L BUN/Creatinine Ratio 21.8 H Glucose 73 L Calcium 12.9 H* Total Bilirubin 0.20 AST 18 ALT 15 Alkaline Phosphatase 175 H Total Protein 7.2 Albumin 2.1 L Globulin 5.1 H Albumin/Globulin Ratio 0.4 L Lipase 81 Radiography Diagnostic Testing: Clinical Impression(s) from Imaging Studies Abdomen/Pelvis CT 05/24/21 20:51 Discharge Plan Triage Chief Complaint: Nausea/Vomiting ED Provider: Francisco Javier Moreira Dx/Rx/DC Orders Clinical Impression: Nausea and vomiting, History of osteomyelitis, Hypercalcemia, Dehydration Instructions: Hypercalcemia Dc, ED Dehydration (Adult), ED Vomiting (Adult) Prescriptions: New promethazine 12.5 mg tablet 12.5 mg PO Q6H PRN (Reason: nausea and vomiting) Qty: 14 RF: 0 No Action acyclovir 400 mg tablet 400 mg PO DAILY RF: 0 methadone 5 mg tablet 10 mg PO QHS RF: 0 oxycodone 10 mg tablet 10 mg PO TID PRN PRN (Reason: Pain) RF: 0 gabapentin 100 mg capsule 100 mg PO BID RF: 0 baclofen 5 mg tablet 7.5 mg PO BID RF: 0 temazepam 30 MG capsule 30 mg PO QHS RF: 0 furosemide 20 mg tablet 20 mg PO BID RF: 0 gabapentin 300 mg capsule 300 mg PO QHS RF: 0 apixaban 5 MG tablet 5 mg PO BID RF: 0 Hold Instructions: Resume on 04/14/21. levothyroxine [Euthyrox] 75 mcg tablet 75 mcg PO MOTUWETHFRSA RF: 0 levothyroxine [Euthyrox] 75 mcg tablet 150 mcg PO PLASCENCIA RF: 0 calcium carbonate [Calcium 500] 500 mg calcium (1,250 mg) Tablet 500 mg PO DAILY RF: 0 polyethylene glycol 3350 17 gram/dose Powder 17 g PO QODAY RF: 0 methadone 5 mg tablet 15 mg PO DAILY RF: 0 cholecalciferol (vitamin D3) 25 mcg (1,000 unit) Capsule 25 mcg PO DAILY RF: 0 melatonin 10 mg Tablet 20 mg PO QHS RF: 0 potassium chloride 10 mEq tablet extended release 20 meq PO TID RF: 0 bisacodyl [Dulcolax (bisacodyl)] 5 mg Tablet,Delayed Release (Dr/Ec) 5 mg PO QODAY RF: 0 carvedilol 3.125 mg tablet 3.125 mg PO BID RF: 0 linezolid 600 mg tablet 600 mg PO BID Qty: 28 RF: 0 amoxicillin-pot clavulanate 875-125 mg tablet 1 tab PO BID Qty: 28 RF: 0 fluconazole [Diflucan] 200 mg tablet 400 mg PO DAILY 30 Days Qty: 60 RF: 2 Primary Care Provider: Aaron Chand Referrals: Aaron Chand MD [Primary Care Provider] - 3-5 Days Disposition Disposition: Home, Self Care
[2021-05-24 21:07] VITALS: BP 109/69; PULSE 84; RESP 18; O2SAT 96
[2021-05-24] MEDS: 0.9% Normal Saline 1,000 ML 999 ML IV (21:24)
[2021-05-24 22:35] VITALS: BP 110/78; PULSE 78; RESP 16; TEMP 36.9; O2SAT 98
== END 2021-05-24 23:12 | disposition home or self-care (01) ==
PROVIDERS: Emergency Provider Emergency Medicine; PCP Family Medicine; Visit Provider Emergency Medicine
DX: R11.2 Nausea with vomiting, unspecified (principal); L89.324 Pressure ulcer of left buttock, stage 4; L89.154 Pressure ulcer of sacral region, stage 4; G82.20 Paraplegia, unspecified; M06.9 Rheumatoid arthritis, unspecified; M86.9 Osteomyelitis, unspecified; I42.8 Other cardiomyopathies; E83.52 Hypercalcemia; I25.10 Atherosclerotic heart disease of native coronary artery without angina pectoris; K21.9 Gastro-esophageal reflux disease without esophagitis; G89.4 Chronic pain syndrome; I25.2 Old myocardial infarction; Z85.528 Personal history of other malignant neoplasm of kidney; Z86.711 Personal history of pulmonary embolism; Z86.19 Personal history of other infectious and parasitic diseases; E07.9 Disorder of thyroid, unspecified; Z79.899 Other long term (current) drug therapy; Z90.5 Acquired absence of kidney; Z96.0 Presence of urogenital implants; E86.0 Dehydration
CPT/HCPCS: 36591; 74177; 80053; 83690; 85025; 96360; 96361; 99284; J7030; Q9967; A4216

== ENCOUNTER 2021-06-01 11:45 | Inpatient (IN) | payer MEDICARE, SELFPAY ==
[2021-06-01] VITALS (30 sets, daily range): BP systolic 54–114; BP diastolic 43–80; PULSE 74–107; RESP 10–18; TEMP 36.2–37.2; O2SAT 95–100; BMI 18.1; BMI 19.2
--- NOTE | 2021-06-01 12:08 | EKG12_ITS ---
Test Reason : Blood Pressure : / mmHG Vent. Rate : 087 BPM Atrial Rate : 087 BPM P-R Int : 118 ms QRS Dur : 082 ms QT Int : 470 ms P-R-T Axes : 039 -02 069 degrees QTc Int : 565 ms Normal sinus rhythm Nonspecific ST and T wave abnormality Prolonged QT Abnormal ECG Confirmed by COLETTE ROWLAND, VALENTINA ([id number]), school photograph editor TENISHA HEIN ([id number]) on 06/04/2021 10:56:25 AM Referred By: BRITTANY Confirmed By:VALENTINA ALVARENGA MD
--- NOTE | 2021-06-01 12:10 | EX.ED.DYSGE1 ---
HPI History of Present Illness Chief Complaint: Weakness Detail of Chief Complaint: Generalized weakness times about a week Informant: patient and spouse/S.O. Narrative Narrative: Patient presents to the emergency department with complaint of weakness. Patient is bedbound and paralyzed below the waist. Currently being treated with wound vacs to both buttocks for chronic wounds. Patient currently being treated with fluconazole for urinary tract infection. She had as a visit to the ER couple weeks ago for vomiting and required 2 L of fluids. She has been seeing her oncologist who recently treated her for hyperkalemia and hypercalcemia per her . Patient's had decreased p.o. intake. She is currently being treated for renal cell carcinoma. Patient does have a PowerPort. says that her blood pressure normally in the 90s systolic. Prior similar symptoms: Yes PFSH PFSH Medical History Acute postoperative anemia due to expected blood loss Acute renal failure KELLEE (acute kidney injury) Atelectasis of left lung Cancer Cardiology follow-up encounter Chronic pain syndrome Easy bruising Encephalopathy acute Excessive bleeding Fever Gastric reflux History of irregular heartbeat History of migraine History of non-ST elevation myocardial infarction (NSTEMI) (01/28/19) Immunocompromised state Indwelling urethral catheter present Low iron Malignant neoplasm of unspecified kidney, except renal pelvis Metastatic renal cell carcinoma to bone Non-ischemic cardiomyopathy Non-smoker Nonobstructive atherosclerosis of coronary artery Paralysis Paraplegia following spinal cord injury Post-menopausal Pressure sore of left ischium, stage 4 Pressure ulcer of left buttock, stage 4 Pulmonary embolism Rheumatoid arthritis Right pulmonary embolus (01/28/19) Sacral decubitus ulcer, stage IV Second degree burn of thigh Sepsis Sepsis Septic shock (01/29/19) Single kidney Takotsubo syndrome Thyroid disease Uses wheelchair Home Medications temazepam 30 mg PO QHS 12/12/18 [History Last Taken 04/07/21] apixaban 5 mg PO BID 02/07/19 [History Last Taken 04/08/21] acyclovir 400 mg tablet 400 mg PO DAILY tab 08/19/19 [History Last Taken 04/08/21] furosemide 20 mg tablet 20 mg PO BID tab 08/19/19 [History Last Taken 04/08/21] methadone 5 mg tablet 10 mg PO QHS tab 08/19/19 [History Last Taken 04/07/21] oxycodone 10 mg tablet 10 mg PO TID PRN PRN 08/19/19 [History Last Taken 04/07/21] baclofen 5 mg tablet 7.5 mg PO BID tab 11/16/19 [History Last Taken 04/08/21] gabapentin 100 mg capsule 100 mg PO BID 11/16/19 [History Last Taken 04/08/21] gabapentin 300 mg capsule 300 mg PO QHS cap 11/16/19 [History Last Taken 04/07/21] calcium carbonate [Calcium 500] 500 mg PO DAILY 07/11/20 [History Last Taken 04/08/21] cholecalciferol (vitamin D3) 25 mcg PO DAILY 07/11/20 [History Last Taken 04/08/21] levothyroxine [Euthyrox] 75 mcg PO MOTUWETHFRSA 07/11/20 [History Last Taken 04/08/21] levothyroxine [Euthyrox] 150 mcg PO PLASCENCIA 07/11/20 [History Last Taken 04/07/21] melatonin 20 mg PO QHS 07/11/20 [History Last Taken 04/07/21] methadone 15 mg PO DAILY 07/11/20 [History Last Taken 04/08/21] polyethylene glycol 3350 17 g PO QODAY 07/11/20 [History Last Taken 04/07/21] bisacodyl [Dulcolax (bisacodyl)] 5 mg PO QODAY 04/08/21 [History Last Taken 04/07/21] carvedilol 3.125 mg PO BID 04/08/21 [History Last Taken 04/08/21] potassium chloride 20 meq PO TID 04/08/21 [History Last Taken 04/08/21] amoxicillin-pot clavulanate 1 tab PO BID #28 tab 04/12/21 [Rx Last Taken Unknown] linezolid 600 mg PO BID #28 tab 04/12/21 [Rx Last Taken Unknown] fluconazole [Diflucan] 400 mg PO DAILY 30 Days #60 tab 05/13/21 [Rx Last Taken Unknown] promethazine 12.5 mg PO Q6H PRN #14 tab 05/24/21 [Rx Last Taken Unknown] Allergy/AdvReac Type Severity Reaction Status Date / Time levofloxacin [From Levaquin] AdvReac Vomiting Verified 06/01/21 11:46 ondansetron [From Zofran] AdvReac HEADACHE, Verified 06/01/21 11:46 SEVERE Family History Mother Lung cancer Father Lung cancer Surgical History History of cholecystectomy History of left heart catheterization (01/31/19) History of right nephrectomy (03/30/13) History of spinal surgery (2018) History of surgery History of vascular access device Social History household members: spouse housing: house Smoking Status: Never smoker alcohol intake: never substance use type: does not use ROS ROS ED Constitutional Constitutional ED: Reports systems reviewed and no addt'l complaints, except as documented; Denies body ache(s), change in weight or chills Eyes Eyes: Denies acute decrease in peripheral vision, change in vision, double vision or loss of vision ENT ENT ED: Reports none; Denies ear pain, lip swelling, loss taste/smell, neck pain, otalgia or sore throat Cardiovascular Cardiovascular: Reports none; Denies abdominal pain, chest pain with activity, leg edema, lightheadedness, palpitations, rapid heart rate or syncope Respiratory/Chest Respiratory/Chest: Reports none; Denies change in mental status, dry cough, dyspnea, hemoptysis, shortness of breath at rest or shortness of breath with exertion Gastrointestinal Gastrointestinal: Reports none; Denies abdominal pain, change in stool character, diarrhea, hematemesis, hematochezia, melena, rectal bleeding or vomiting Genitourinary Genitourinary ED: Reports none; Denies abdominal discomfort, anuria, dysuria, genital pain or polyuria Musculoskeletal Musculoskeletal: Reports none; Denies arthralgias, back pain, difficulty walking, extremity pain, muscle weakness or myalgias Integumentary Reports none; Denies abscess or rash Neurologic Neurologic: Reports none and weakness; Denies abnormal gait, confusion, focal weakness, frequent falls, headache(s), loss of vision, numbness, paresthesias, radicular pain or vertigo Psychiatric Psychiatric: Reports systems reviewed and no addt'l complaints, except as documented and none; Denies behavioral changes, confusion, difficulty concentrating, hallucinations, suicidal ideation, tactile hallucinations or visual hallucinations Endocrine Endocrinology: Denies none, cold intolerance, excessive sweating, fatigue or heat intolerance Hematologic/Lymphatic Hematologic/Lymphatic: Reports none; Denies anemia, easy bleeding or easy bruising Allergic/Immunologic Allergic/Immunologic ED: Denies as per HPI, none, lip swelling, mouth swelling, throat swelling, tongue swelling or hives EXAM Physical Exam Const Vital Signs: 06/01/21 11:46 06/01/21 12:53 Temperature 98.1 F Temperature Source Temporal Pulse Rate 107 H Respiratory Rate 12 Respiratory Effort Normal Non-Labored Respiratory Pattern Normal Blood Pressure 68/46 L Blood Pressure Mean 53 Pulse Ox 98 Oxygen Delivery Method Room Air Positive well nourished and well developed General Appearance ED: well developed and NAD HEENT Reports TM's clear and moist mucous membranes normocephalic and atraumatic; Negative for trauma or tenderness Tympanic Membrane ED: Yes TM's clear Eyes PERRL and EOMs intact bilaterally General Eye ED: Negative for pale conjunctiva or scleral icterus Neck no lymphadenopathy, supple and no JVD General: Negative for tenderness Chest Wall inspection of chest normal and palpation of chest normal Chest: Negative for tenderness Resp normal respiratory effort and clear to auscultation bilaterally Effort and Inspection: Negative for respiratory distress or pain with movement Auscultation: Negative for rhonchi, wheezes or diminished lung sounds Cardio regular rate, regular rhythm, S1 normal heart sound, S2 normal heart sound and no murmurs Peripheral Pulses: pulses 2+ throughout GI normal to inspection, nondistended, normoactive bowel sounds, soft to palpation, non-tender, non-distended and no masses Back/Spine no CVA tenderness and no thoracic nor lumbar tenderness Extremity normal to inspection General Extremety ED: Negative for edema General Extremity: Negative for edema Neuro oriented x3, CN's II-XII intact bilaterally, no sensory deficits noted and gait normal Sensorium / Orientation: awake, alert, oriented to person, oriented to place and oriented to time Motor Exam: strength 5/5 throughout and strength abnormal Psych mental status grossly normal Skin no rashes or lesions noted and no wounds MDM MDM MDM Narrative Medical decision making narrative: IV line established on arrival. Patient was ordered a liter normal saline fluid bolus. Blood pressure did improve into the 80s systolic and I did order a second liter for her. Urinalysis was ordered as she does have a chronic indwelling Blount and patient apparently on chronic antibiotics for osteomyelitis. Case will be discussed with hospitalist evaluate patient for admission for diagnosis of hypotension and dehydration Lab Data Attestation: I reviewed the patient's lab results. Labs: Laboratory Results - last 24 hr 06/01/21 06/01/21 06/01/21 12:15 12:15 12:15 WBC 9.3 RBC 3.11 L Hgb 8.1 L Hct 27.1 L MCV 87.1 MCH 26.0 L MCHC 29.9 L RDW Std Deviation 61.2 H RDW Coeff of Deborah 19.4 H Plt Count 390 MPV 9.5 Immature Gran % (Auto) 2.600 H Neut % (Auto) 87.5 H Lymph % (Auto) 7.2 L [place] % (Auto) 1.6 Eos % (Auto) 0.9 Baso % (Auto) 0.2 Absolute Neuts (auto) 8.2 H Absolute Lymphs (auto) 0.67 L Nucleated RBC % 0 Sodium 139 Potassium 3.3 L Chloride 109 H Carbon Dioxide 25.0 Anion Gap 5 BUN 14 Creatinine 0.82 Estim Creat Clear Calc 60.71 Est GFR (MDRD) Af Amer 92 Est GFR (MDRD) Non-Af 76 BUN/Creatinine Ratio 17.1 Glucose 91 Lactic Acid 1.0 Calcium 10.3 H Total Bilirubin 0.20 AST 11 L ALT 10 L Alkaline Phosphatase 141 H Troponin I High Sens 6 Total Protein 5.8 L Albumin 1.7 L Globulin 4.1 Albumin/Globulin Ratio 0.4 L Urine Color Urine Clarity Urine pH Ur Specific [place] Urine Protein Urine Glucose (UA) Urine Ketones Urine Occult Blood Urine Nitrite Urine Bilirubin Urine Urobilinogen Ur Leukocyte Esterase Urine RBC Urine WBC Ur Squamous Epith Cells Urine Bacteria Urine Mucus 06/01/21 14:35 WBC RBC Hgb Hct MCV MCH MCHC RDW Std Deviation RDW Coeff of Deborah Plt Count MPV Immature Gran % (Auto) Neut % (Auto) Lymph % (Auto) [place] % (Auto) Eos % (Auto) Baso % (Auto) Absolute Neuts (auto) Absolute Lymphs (auto) Nucleated RBC % Sodium Potassium Chloride Carbon Dioxide Anion Gap BUN Creatinine Estim Creat Clear Calc Est GFR (MDRD) Af Amer Est GFR (MDRD) Non-Af BUN/Creatinine Ratio Glucose Lactic Acid Calcium Total Bilirubin AST ALT Alkaline Phosphatase Troponin I High Sens Total Protein Albumin Globulin Albumin/Globulin Ratio Urine Color Yellow Urine Clarity Cloudy Urine pH 5.0 Ur Specific [place] 1.025 Urine Protein 100 H Urine Glucose (UA) Normal Urine Ketones 15 H Urine Occult Blood 250 H Urine Nitrite Negative Urine Bilirubin Negative Urine Urobilinogen Normal Ur Leukocyte Esterase 500 H Urine RBC > 100 SEEN Urine WBC >100 SEEN Ur Squamous Epith Cells 5-10 SEEN Urine Bacteria 0 SEEN Urine Mucus 0 SEEN EKG Initial EKG: Attestation: I personally reviewed and interpreted this EKG as follows: Comments: Sinus rhythm with a ventricular rate of [address] changes Discharge Plan Dx/Rx/DC Orders Clinical Impression: Weakness, Acute hypotension, Acute dehydration Disposition Disposition: Acute Care Hospital [facility]
[2021-06-01] MEDS: 0.9% Normal Saline 1,000 ML 1000 ML IV (12:32)
[2021-06-01 12:45] LABS: Absolute Lymphocyte Count 0.67 X10^3/uL (0.83-4.51); Absolute Neutrophil Count 8.2 X10^3/uL (2.0-7.7); Basophil# 0.02 X10^3/uL; Basophil% 0.2 % (0-1); Eosinophil# 0.08 X10^3/uL; Eosinophils% 0.9 % (0-5); Hematocrit 27.1 % (37-47); Hemoglobin 8.1 g/dL (12.0-15.0); Lymphocyte # 0.67 X10^3/ul (0.83-4.51); Lymphocyte % 7.2 % (19-41); Mean Corp Hgb Conc 29.9 g/dL (32-36); Mean Corpuscular Volume 87.1 fL (81-99); Mean Platelet Vol. 9.5 fl (6.2-12.0); Monocyte# 0.15 X10^3/uL; Monocyte% 1.6 % (0-10); NRBC Flagged by Analyzer 0 % (0-5); Neutrophil # 8.16 X10^3/uL (2.7-7.7); Neutrophil % 87.5 % (47-70); Platelet Count 390 K/mm3 (150-450); RBC Distribution Width CV 19.4 % (11.6-14.6); RBC Distribution Width SD 61.2 fl (35.1-43.9); Red Blood Count 3.11 M/mm3 (4.2-5.4); White Blood Count 9.3 K/mm3 (4.4-11.0)
[2021-06-01 12:49] LABS: ALB/GLOB Ratio 0.4 RATIO (0.9-2.4); AST(SGOT) 11 U/L (15-37); Alanine Aminotransfer ALT/SGPT 10 U/L (13-56); Albumin, Serum 1.7 g/dL (3.2-5.0); Alkaline Phosphatase 141 U/L (45-117); Anion Gap 5 (5-15); BUN 14 mg/dL (7-18); BUN/Creat Ratio 17.1 RATIO (10-20); Calcium,Total 10.3 mg/dL (8.5-10.1); Chloride 109 mmol/L (98-107); Creatinine, Serum 0.82 mg/dL (0.55-1.02); EST Glomerular Filtration Rate 76 mL/min (>60); Est Glom Filt Rate - Afr Amer 92 mL/min (>60); Estimated Creatinine Clearance 60.71 ml/min; Globulin 4.1 g/dL (2.2-4.2); Glucose 91 mg/dL (74-106); Potassium 3.3 mmol/L (3.5-5.1); Protein, Total 5.8 g/dL (6.4-8.2); Sodium Level 139 mmol/L (136-145); Troponin-I HS 6 pg/mL (3.0-54.0)
--- NOTE | 2021-06-01 14:43 | HP.PCM.HOS_ITS ---
HPI - General General Date of Admission: 06/01/21 HPI Narrative SCOTTY REDMOND, is a 55 F with an extensive PMH as outlined who presents via the ED on 06/01/2021 with a complaint of weakness. Patient is paralysed and bedbound and has chronic buttock wounds with wound vacs in place. She came in to the ED o/a of weakness and lethargy. She takes chronic linezolid for osteomyelitis in sacral wounds. She has had decreased oral intake. She denies any fever, chills, nausea, vomiting or diarrhea. Vitals in the ED were BP of 68/46, with OR of 107 and RR of 12 and 98% on room air. Labs showed hemoglobin of 8.1 with WBC of 9.3 and platelets of 390. BMP showed sodium of 139, with K of 3.3 and bicarb of 25. Cr was 0.82 and calcium was 10.3. No imaging was done. She is being admitted to be managed for hypotension due to dehyration. Will admit to ICU. [facility] Medical History Acute postoperative anemia due to expected blood loss Acute renal failure KELLEE (acute kidney injury) Atelectasis of left lung Cancer Cardiology follow-up encounter Chronic pain syndrome Easy bruising Encephalopathy acute Excessive bleeding Fever Gastric reflux History of irregular heartbeat History of migraine History of non-ST elevation myocardial infarction (NSTEMI) (01/28/19) Immunocompromised state Indwelling urethral catheter present Low iron Malignant neoplasm of unspecified kidney, except renal pelvis Metastatic renal cell carcinoma to bone Non-ischemic cardiomyopathy Non-smoker Nonobstructive atherosclerosis of coronary artery Paralysis Paraplegia following spinal cord injury Post-menopausal Pressure sore of left ischium, stage 4 Pressure ulcer of left buttock, stage 4 Pulmonary embolism Rheumatoid arthritis Right pulmonary embolus (01/28/19) Sacral decubitus ulcer, stage IV Second degree burn of thigh Sepsis Sepsis Septic shock (01/29/19) Single kidney Takotsubo syndrome Thyroid disease Uses wheelchair Home Medications temazepam 30 mg PO QHS 12/12/18 [History Last Taken 04/07/21] apixaban 5 mg PO BID 02/07/19 [History Last Taken 04/08/21] acyclovir 400 mg tablet 400 mg PO DAILY tab 08/19/19 [History Last Taken 04/08/21] methadone 5 mg tablet 10 mg PO QHS tab 08/19/19 [History Last Taken 04/07/21] oxycodone 10 mg tablet 10 mg PO TID PRN PRN 08/19/19 [History Last Taken 04/07/21] baclofen 5 mg tablet 7.5 mg PO BID tab 11/16/19 [History Last Taken 04/08/21] gabapentin 100 mg capsule 100 mg PO BID 11/16/19 [History Last Taken 04/08/21] gabapentin 300 mg capsule 300 mg PO QHS cap 11/16/19 [History Last Taken 04/07/21] levothyroxine [Euthyrox] 75 mcg PO MOTUWETHFRSA 07/11/20 [History Last Taken 04/08/21] levothyroxine [Euthyrox] 150 mcg PO PLASCENCIA 07/11/20 [History Last Taken 04/07/21] melatonin 20 mg PO QHS 07/11/20 [History Last Taken 04/07/21] methadone 15 mg PO DAILY 07/11/20 [History Last Taken 04/08/21] polyethylene glycol 3350 17 g PO DAILY PRN PRN 07/11/20 [History Last Taken 04/07/21] bisacodyl [Dulcolax (bisacodyl)] 5 mg PO DAILY PRN PRN 04/08/21 [History Last Taken 04/07/21] carvedilol 3.125 mg PO BID 04/08/21 [History Last Taken 04/08/21] potassium chloride 20 meq PO TID 04/08/21 [History Last Taken 04/08/21] promethazine 12.5 mg PO Q6H PRN #14 tab 05/24/21 [Rx Last Taken Unknown] cephalexin 500 mg PO Q6H 06/01/21 [History Last Taken Unknown] fluconazole [Diflucan] 400 mg PO DAILY 06/01/21 [History Last Taken Unknown] Allergy/AdvReac Type Severity Reaction Status Date / Time levofloxacin [From Levaquin] AdvReac Vomiting Verified 06/01/21 11:46 ondansetron [From Zofran] AdvReac HEADACHE, Verified 06/01/21 11:46 SEVERE Family History Mother Lung cancer Father Lung cancer Surgical History History of cholecystectomy History of left heart catheterization (01/31/19) History of right nephrectomy (03/30/13) History of spinal surgery (2018) History of surgery History of vascular access device Social History household members: spouse housing: house Smoking Status: Never smoker alcohol intake: never substance use type: does not use ROS Constitutional Constitutional: Reports anorexia, fatigue, malaise and weakness; Denies chills or fever(s) Eyes Eyes: Denies change in vision ENT HEENT: Denies dysphagia, sinus pressure or sore throat Cardiovascular Cardiovascular: Denies chest pain, dyspnea on exertion, lightheadedness, orthopnea, palpitations, paroxysmal nocturnal dyspnea, rapid heart rate or syncope Respiratory/Chest Respiratory/Chest: Denies cough, dyspnea, productive cough, shortness of breath at rest or shortness of breath with exertion Gastrointestinal Gastrointestinal: Denies abdominal pain, constipation, diarrhea, nausea or vomiting Genitourinary Genitourinary: Denies dysuria, nocturia, urinary frequency or urinary incontinence Musculoskeletal Musculoskeletal: Denies back pain Neurologic Neurologic: Denies confusion, dizziness, focal weakness, headache(s), seizure- like activity or seizures Psychiatric Psychiatric: Denies anxiety or depression Endocrine Endocrinology: Denies change in body appearance Hematologic/Lymphatic Hematologic/Lymphatic: Denies anemia Vital Signs Vital Signs Vital Signs: 06/01/21 11:46 06/01/21 12:53 Temperature 98.1 F Temperature Source Temporal Pulse Rate 107 H Respiratory Rate 12 Respiratory Effort Normal Non-Labored Respiratory Pattern Normal Blood Pressure 68/46 L Blood Pressure Mean 53 Pulse Ox 98 Oxygen Delivery Method Room Air Weight Weight: 112 lb Body Mass Index (BMI) 18.1 Physical Exam Const alert and oriented x3 General Appearance: cooperative Orientation / Consciousness: lethargic HEENT normocephalic, head/scalp atraumatic and hearing grossly normal bilaterally Eyes PERRL, EOMs intact bilaterally and conjunctivae normal Neck no lymphadenopathy, supple and no JVD Resp normal respiratory effort, no retractions, no use of accessory muscles and clear to auscultation bilaterally Cardio regular rate, regular rhythm, S1 normal heart sound, S2 normal heart sound and no murmurs GI normal to inspection, nondistended, normoactive bowel sounds, soft to palpation, non-tender and non-distended Extremity normal to inspection and no clubbing, cyanosis or edema Extremity Narrative: has paralysis of lower extremities Peripheral Pulses: Yes pulses 2+ throughout Neuro oriented x3 Neuro Narrative: power in lower extremities is 0/5 due to paralysis Sensorium / Orientation: awake and alert Psych affect normal Results Lab / Micro Data Result Diagrams: 06/02/21 05:34 06/02/21 05:34 Labs: Laboratory Results - last 24 hr 06/01/21 12:15: WBC 9.3, RBC 3.11 L, Hgb 8.1 L, Hct 27.1 L, MCV 87.1, MCH 26.0 L , MCHC 29.9 L, RDW Std Deviation 61.2 H, RDW Coeff of Deborah 19.4 H, Plt Count 390, MPV 9.5, Immature Gran % (Auto) 2.600 H, Neut % (Auto) 87.5 H, Lymph % (Auto) 7.2 L, [place] % (Auto) 1.6, Eos % (Auto) 0.9, Baso % (Auto) 0.2, Absolute Neuts (auto) 8.2 H, Absolute Lymphs (auto) 0.67 L, Nucleated RBC % 0 06/01/21 12:15: Sodium 139, Potassium 3.3 L, Chloride 109 H, Carbon Dioxide 25.0, Anion Gap 5, BUN 14, Creatinine 0.82, Estim Creat Clear Calc 60.71, Est GFR (MDRD) Af Amer 92, Est GFR (MDRD) Non-Af 76, BUN/Creatinine Ratio 17.1, Glucose 91, Calcium 10.3 H, Total Bilirubin 0.20, AST 11 L, ALT 10 L, Alkaline Phosphatase 141 H, Troponin I High Sens 6, Total Protein 5.8 L, Albumin 1.7 L, Globulin 4.1, Albumin/Globulin Ratio 0.4 L 06/01/21 12:15: Lactic Acid 1.0 Assessment & Plan Assessment/Plan (1) Weakness: (2) Acute hypotension: (3) Acute dehydration: PLAN: #Acute hypotension likely due to dehydration * patient's BP on admission was 68/46 * admit to ICU * she was hydrated with IVF in the ED and responded. * continue hydration with IVF. Her BP usually appears to run in the 90s * continue hydration with IVF * if she remains hypotensive, will benefit from pressors to keep MAP >65% * blood nad urine cultures obtained * even though she is on chronic linezolid, will star ton broad spectrum IV vancomycin and zosyn and hold linezolid for now * consult critical care * #Anemia: hb is 8.1. Will monitor. Transfuse if Hb<7 #Hypokalemia: K is 3.3. Will replace and trend. #Hypercalcemia * calcium is 10.3; corrected for albumin, calcium is 12.1 * likely due to bony mets and dehydration * will hydrate aggressively with IVF and trend #Chronic sacral decubitus ulcers * present on admission * consult wound care * on chronic zyvox due to osteomyelitis of the sacral decubitus ulcers * #Renal cancer with mets to the bone and resultant paraplegia * follow with oncology on outpatient basis * #Hypertension; BP meds on hold o/a of shock #hypothyroidism: on synthroid DVT prophylaxis: lovenox Total critical care time spent: 52 mins Charges/Coding Visit Charges Inpatient E&M: 65808 Init Hosp L3 Procedures Hospitalists Procedures: [id number] [facility] Hr ([id number])
[2021-06-01 14:44] LABS: Bacteria 0 SEEN /hpf (None Seen); Mucous, Urine 0 SEEN /hpf (<or=2+)
[2021-06-01 14:45] LABS: Color, Urine Yellow (Yellow); Glucose, Dipstick Normal (Normal); Ketone-Dipstick 15 mg/dl (Negative); Leukocyte Esterase-Dipstick 500 /ul (Negative); Nitrite-Dipstick Negative (Negative); Occult Blood-Urine 250 /ul (Negative); Protein-Dipstick 100 mg/dl (Negative); Specific Gravity, Urine 1.025 (1.002-1.030); Urine Bilirubin Dipstick Negative (Negative); Urine Clarity Cloudy (Clear); Urine Urobilinogen Normal (Normal)
--- NOTE | 2021-06-01 14:47 | NURSING ---
HOSPITALIST FOR DR OLIVIA
[2021-06-01 14:52] LABS: Red Blood Cells-Urine > 100 SEEN /hpf (0-5); White Blood Cells >100 SEEN /hpf (0-5)
[2021-06-01 14:53] LABS: Squamous Epithelial Cells - UA 5-10 SEEN /hpf (5-10)
[2021-06-01] MEDS: 0.9% Normal Saline 1,000 ML 999 ML IV (14:57)
--- NOTE | 2021-06-01 15:10 | NURSING ---
CV ICU 203
[2021-06-01] MEDS: 0.9% Normal Saline 1,000 ML 150 ML IV ×2 (16:17→21:41)
[2021-06-01] MEDS: proMETHazine 25 MG Tablet 12.5 MG PO (17:26)
--- NOTE | 2021-06-01 18:06 | PCM.RX.CS ---
Consult Pharmacy has been consulted to manage selected antiobiotic: Vancomycin Type of Consult: New start Prior Doses of Antibiotics Received/Current Regimen: Medications Vancomycin HCl 1,250 mg/ (Sodium Chloride) 275 mls @ 167 mls/hr IV X1 ONE Stop: 06/01/21 19:38 Last Admin: 06/01/21 17:26 Dose: 167 mls/hr Documented by: Labs: Sodium 139 mmol/L (136-145) 06/01/21 12:15 Potassium 3.3 mmol/L (3.5-5.1) L 06/01/21 12:15 Chloride 109 mmol/L (98-107) H 06/01/21 12:15 Carbon Dioxide 25.0 mmol/L (21.0-32.0) 06/01/21 12:15 Anion Gap 5 (5-15) 06/01/21 12:15 BUN 14 mg/dL (7-18) 06/01/21 12:15 Creatinine 0.82 mg/dL (0.55-1.02) 06/01/21 12:15 Est GFR (MDRD) Af Amer 92 mL/min (>60) 06/01/21 12:15 Est GFR (MDRD) Non-Af 76 mL/min (>60) 06/01/21 12:15 BUN/Creatinine Ratio 17.1 RATIO (10-20) 06/01/21 12:15 Glucose 91 mg/dL (74-106) 06/01/21 12:15 Weight used for dosin kg Estimated Creatinine Clearance: 61 Goal Trough: 15-20 mcg/mL Pharmacy Plan for Drug Dosinmg given x1, 500mg IV q12h with trough prior to 4th dose. Pharmacy Service will continue to monitor and adjust dosing as required. Follow-Up Labs: Trough Vancomycin - 06/03 @ 0530
[2021-06-01] MEDS: MELATONIN 10 MG TABLET 20 MG PO (21:30)
[2021-06-01] MEDS: APIXABAN 5 MG TABLET PO (21:31)
[2021-06-01] MEDS: Baclofen 10 MG Tablet 7.5 MG PO (21:32)
[2021-06-01] MEDS: Gabapentin 300 MG Capsule PO (21:32)
[2021-06-01] MEDS: Methadone 10 MG Tablet PO (21:41)
[2021-06-01] MEDS: Temazepam 15 MG Capsule 30 MG PO (21:41)
--- NOTE | 2021-06-01 23:19 | PCM.HOSP.N ---
Hospitalist Note Patient continues to be hypotensive even though had 3 L of fluid boluses. BMI is 19.3, body weight 119 pounds. Urine output 100 mL. Dark-colored urine. Discussed with the nursing staff. Started on Levophed drip to keep MAP more than 65 mmHg and 500 Ringer lactate bolus. Monitor urine output
[2021-06-01] MEDS: Lactated Ringers 500 ML 999 ML IV (23:47)
[2021-06-02] VITALS (54 sets, daily range): BP systolic 74–123; BP diastolic 42–93; PULSE 63–86; RESP 12–22; TEMP 36.8–38.2; O2SAT 97–100
[2021-06-02] MEDS: 0.9% Normal Saline 1,000 ML 150 ML IV ×3 (04:02→18:04)
[2021-06-02 05:47] LABS: Absolute Neutrophil Count 4.9 X10^3/uL (2.0-7.7); Basophil# 0.03 X10^3/uL; Basophil% 0.5 % (0-1); Eosinophil# 0.27 X10^3/uL; Eosinophils% 4.4 % (0-5); Hematocrit 23.9 % (37-47); Hemoglobin 7.1 g/dL (12.0-15.0); Lymphocyte % 11.3 % (19-41); Mean Corp Hgb Conc 29.7 g/dL (32-36); Mean Corpuscular Hgb 25.9 pg (27.0-32.0); Mean Corpuscular Volume 87.2 fL (81-99); Mean Platelet Vol. 9.1 fl (6.2-12.0); Monocyte# 0.15 X10^3/uL; Monocyte% 2.4 % (0-10); NRBC Flagged by Analyzer 0 % (0-5); Neutrophil # 4.94 X10^3/uL (2.7-7.7); Neutrophil % 79.8 % (47-70); POSITIVE MORPHOLOGY YES; Platelet Count 337 K/mm3 (150-450); RBC Distribution Width CV 19.3 % (11.6-14.6); RBC Distribution Width SD 61.5 fl (35.1-43.9); Red Blood Count 2.74 M/mm3 (4.2-5.4); White Blood Count 6.2 K/mm3 (4.4-11.0)
[2021-06-02 05:49] LABS: Differential Indicated SCAN CRITERIA MET
[2021-06-02] MEDS: Acetaminophen 325 MG Tablet 650 MG PO (05:56)
[2021-06-02] MEDS: Gabapentin 100 MG Capsule PO ×2 (05:57→13:10)
[2021-06-02] MEDS: Levothyroxine 150 MCG Tablet PO (05:59)
[2021-06-02 06:02] LABS: Anion Gap 7 (5-15); BUN 12 mg/dL (7-18); BUN/Creat Ratio 22.8 RATIO (10-20); Calcium,Total 8.1 mg/dL (8.5-10.1); Chloride 117 mmol/L (98-107); Creatinine, Serum 0.53 mg/dL (0.55-1.02); EST Glomerular Filtration Rate 127 mL/min (>60); Est Glom Filt Rate - Afr Amer 154 mL/min (>60); Estimated Creatinine Clearance 93.36 ml/min; Glucose 71 mg/dL (74-106); Potassium 3.2 mmol/L (3.5-5.1); Sodium Level 143 mmol/L (136-145)
[2021-06-02] MEDS: Vancomycin IV 500 MG/100 ML BAG 100 MG IV (06:02)
[2021-06-02 06:11] LABS: Anisocytosis 1+; Atypical Lymphocyte 1+ %
[2021-06-02] MEDS: Potassium Chloride 20mEq/100mL 20 MEQ/100 ML IV.SOLN. 100 MEQ IV BOLUS ×2 (07:00→08:10)
--- NOTE | 2021-06-02 07:15 | CON.PCM.CC_ITS ---
Assessment & Plan Assessment/Plan (1) Acute hypotension: (2) Pressure ulcer of left buttock, stage 4: (3) Decubitus ulcer of right ischium, stage 4: (4) Chronic pain syndrome: (5) Metastatic renal cell carcinoma to bone: PLAN: RECOMMENDATIONS: 1. Continue empiric antibiotics pending cultures 2. Transfuse 1 unit packed red blood cells 3. Obtain iron studies. Transfuse if necessary 4. Potassium repletion 5. Wean Levophed as tolerated to maintain systolic greater than 90 6. Continue wound care of pressure ulcers IMPRESSIONS: 1. Acute hypotension of unclear etiology Patient reportedly was volume depleted on presentation. Patient has received significant IV fluids, but ultimately required pressors overnight. Pat ient does not have significant leukocytosis or endorgan damage to suggest sepsis. Cultures have been ordered. Patient has had a decrease in hemoglobin to as low as 7.1 today. Unclear if this is a chronic anemia and patient has had an element of hemoconcentration on presentation secondary to dehydration. Given need for pressors, will transfuse 1 unit of packed red blood cells. Monitor for blood loss. 2. Hypercalcemia/hypokalemia/renal cell cancer with mets to bone and second soco paraplegia Clinical suspicion for elevated calcium secondary to bony mets. Patient is receiving aggressive fluid resuscitation. Continue to replete potassium as necessary. Iron studies have been ordered. Patient would benefit from a magnesium level also. 3. Hypertension/stage IV decubitus ulcers/osteomyelitis of the pelvis/chronic pain syndrome/history of nonischemic cardiomyopathy Complicates care, management, recovery and prognosis. Continue wound care. Patient was on linezolid previously. Previous cultures appear to show staph epidermidis. Leukocytosis is not present and patient has not been febrile. Consider infectious disease evaluation. Cultures are currently pending. Antihypertensives have been held secondary to problem #1. TIME: 35 minutes critical care time spent addressing patient's acute hypotension, anemia, hypercalcemia, hypokalemia, review of all data and collaboration with care team HPI Consult Data Date of Consult: 06/02/21 HPI Narrative HPI Narrative: SCOTTY REDMOND is a 55 F, with past medical history listed below, who presents to [facility] on 06/01/2021 secondary to generalized weakness and tremor for approximately a week. Patient is bedbound and paralyzed below the waist. Patient has had chronic wounds of bilateral buttock requiring wound vacs. Patient reportedly was on fluconazole for a urinary tract infection and had presented to the ER previously with dehydration requiring 2 L of IV fluids. Patient reportedly has also been recently treated for hyperkalemia and hypercalcemia. Patient does have decreased p.o. intake and is currently being treated for renal cell carcinoma. Patient reportedly has blood pressures in the 90s systolic at baseline. In the ER, patient was afebrile, but tachycardic at 107 bpm with hypotension at 68/46. The patient was noted to be 98% on room air with nonlabored respirations. Laboratory work-up showed a white blood cell count of 9.3, hemoglobin of 8.1, potassium of 3.3 and a lactate of 1. Alkaline phosphatase was slightly elevated and albumin was noted to be 1.7. UA did show leukocyte esterase, WBCs, but was negative on nitrites. Patient reportedly appeared dry, so was given 2 L normal saline with improvement in blood pressure. Patient was admitted to the intensive care unit for further evaluation. While in the intensive care unit, patient did receive a total of 3 L of fluid boluses. Patient was noted to have marginal urine output of 100 cc that was dark-colored. Patient was initiated on Levophed drip and given an additional 500 cc of lactated Ringer's. Patient overall feels subjectively slightly improved compared to previous, but not at baseline. Patient is still reporting significant tremor. Review of systems otherwise negative from a constitutional, HEENT, respiratory, cardiovascular, GI, genitourinary, musculoskeletal, skin, neurologic, psychiatric and hematologic system unless stated above. [facility] Medical History Acute postoperative anemia due to expected blood loss Acute renal failure KELLEE (acute kidney injury) Atelectasis of left lung Cancer Cardiology follow-up encounter Chronic pain syndrome Easy bruising Encephalopathy acute Excessive bleeding Fever Gastric reflux History of irregular heartbeat History of migraine History of non-ST elevation myocardial infarction (NSTEMI) (01/28/19) Immunocompromised state Indwelling urethral catheter present Low iron Malignant neoplasm of unspecified kidney, except renal pelvis Metastatic renal cell carcinoma to bone Non-ischemic cardiomyopathy Non-smoker Nonobstructive atherosclerosis of coronary artery Paralysis Paraplegia following spinal cord injury Post-menopausal Pressure sore of left ischium, stage 4 Pressure ulcer of left buttock, stage 4 Pulmonary embolism Rheumatoid arthritis Right pulmonary embolus (01/28/19) Sacral decubitus ulcer, stage IV Second degree burn of thigh Sepsis Sepsis Septic shock (01/29/19) Single kidney Takotsubo syndrome Thyroid disease Uses wheelchair Home Medications temazepam 30 mg PO QHS 12/12/18 [History Last Taken 04/07/21] apixaban 5 mg PO BID 02/07/19 [History Last Taken 04/08/21] acyclovir 400 mg tablet 400 mg PO DAILY tab 08/19/19 [History Last Taken 04/08/21] methadone 5 mg tablet 10 mg PO QHS tab 08/19/19 [History Last Taken 04/07/21] oxycodone 10 mg tablet 10 mg PO TID PRN PRN 08/19/19 [History Last Taken 04/07/21] baclofen 5 mg tablet 7.5 mg PO BID tab 11/16/19 [History Last Taken 04/08/21] gabapentin 100 mg capsule 100 mg PO BID 11/16/19 [History Last Taken 04/08/21] gabapentin 300 mg capsule 300 mg PO QHS cap 11/16/19 [History Last Taken ] levothyroxine [Euthyrox] 75 mcg PO MOTUWETHFRSA 07/11/20 [History Last Taken 04/08/21] levothyroxine [Euthyrox] 150 mcg PO PLASCENCIA 07/11/20 [History Last Taken 04/07/21] melatonin 20 mg PO QHS 07/11/20 [History Last Taken 04/07/21] methadone 15 mg PO DAILY 07/11/20 [History Last Taken 04/08/21] polyethylene glycol 3350 17 g PO DAILY PRN PRN 07/11/20 [History Last Taken 04/07/21] bisacodyl [Dulcolax (bisacodyl)] 5 mg PO DAILY PRN PRN 04/08/21 [History Last Taken 04/07/21] carvedilol 3.125 mg PO BID 04/08/21 [History Last Taken 04/08/21] potassium chloride 20 meq PO TID 04/08/21 [History Last Taken 04/08/21] promethazine 12.5 mg PO Q6H PRN #14 tab 05/24/21 [Rx Last Taken Unknown] cephalexin 500 mg PO Q6H 06/01/21 [History Last Taken Unknown] fluconazole [Diflucan] 400 mg PO DAILY 06/01/21 [History Last Taken Unknown] Allergy/AdvReac Type Severity Reaction Status Date / Time levofloxacin [From Levaquin] AdvReac Vomiting Verified 06/01/21 11:46 ondansetron [From Zofran] AdvReac HEADACHE, Verified 06/01/21 11:46 SEVERE Family History Mother Lung cancer Father Lung cancer Surgical History History of cholecystectomy History of left heart catheterization (01/31/19) History of right nephrectomy (03/30/13) History of spinal surgery (2017) History of surgery History of vascular access device Social History household members: spouse housing: house Smoking Status: Never smoker alcohol intake: never substance use type: does not use ROS ROS Narrative See HPI Physical Exam Const alert and oriented x3 Constitutional Narrative: LateralSignificant resting tremor hands noted General Appearance: cooperative HEENT normocephalic, head/scalp atraumatic and hearing grossly normal bilaterally Eyes PERRL, EOMs intact bilaterally and conjunctivae normal Neck no lymphadenopathy, supple and no JVD Resp normal respiratory effort, no retractions, no use of accessory muscles and clear to auscultation bilaterally Auscultation: Negative for rales, rhonchi or wheezes Cardio regular rate, regular rhythm, S1 normal heart sound and S2 normal heart sound Heart Sounds: Negative for gallop, murmur or rub GI normal to inspection, nondistended, normoactive bowel sounds, soft to palpation, non-tender and non-distended Extremity normal to inspection and no clubbing, cyanosis or edema Extremity Narrative: has paralysis of lower extremities Peripheral Pulses: Yes pulses 2+ throughout Skin Skin Narrative: Wound vacs in place Neuro oriented x3 Neuro Narrative: power in lower extremities is 0/5 due to paralysis Sensorium / Orientation: awake and alert Psych affect normal Lab / Micro Data Result Diagrams: 06/02/21 05:34 06/02/21 05:34 Labs: Laboratory Results - last 24 hr 06/01/21 12:15: WBC 9.3, RBC 3.11 L, Hgb 8.1 L, Hct 27.1 L, MCV 87.1, MCH 26.0 L , MCHC 29.9 L, RDW Std Deviation 61.2 H, RDW Coeff of Deborah 19.4 H, Plt Count 390, MPV 9.5, Immature Gran % (Auto) 2.600 H, Neut % (Auto) 87.5 H, Lymph % (Auto) 7.2 L, [place] % (Auto) 1.6, Eos % (Auto) 0.9, Baso % (Auto) 0.2, Absolute Neuts (auto) 8.2 H, Absolute Lymphs (auto) 0.67 L, Nucleated RBC % 0 06/01/21 12:15: Sodium 139, Potassium 3.3 L, Chloride 109 H, Carbon Dioxide 25.0, Anion Gap 5, BUN 14, Creatinine 0.82, Estim Creat Clear Calc 60.71, Est GFR (MDRD) Af Amer 92, Est GFR (MDRD) Non-Af 76, BUN/Creatinine Ratio 17.1, Glucose 91, Calcium 10.3 H, Total Bilirubin 0.20, AST 11 L, ALT 10 L, Alkaline Phosphatase 141 H, Troponin I High Sens 6, Total Protein 5.8 L, Albumin 1.7 L, Globulin 4.1, Albumin/Globulin Ratio 0.4 L 06/01/21 12:15: Lactic Acid 1.0 06/01/21 14:35: Urine Color Yellow, Urine Clarity Cloudy, Urine pH 5.0, Ur Specific [place] 1.025, Urine Protein 100 H, Urine Glucose (UA) Normal, Urine Ketones 15 H, Urine Occult Blood 250 H, Urine Nitrite Negative, Urine Bilirubin Negative, Urine Urobilinogen Normal, Ur Leukocyte Esterase 500 H, Urine RBC > 100 SEEN, Urine WBC >100 SEEN, Ur Squamous Epith Cells 5-10 SEEN, Urine Bacteria 0 SEEN, Urine Mucus 0 SEEN 06/02/21 05:34: WBC 6.2, RBC 2.74 L, Hgb 7.1 L, Hct 23.9 L, MCV 87.2, MCH 25.9 L , MCHC 29.7 L, RDW Std Deviation 61.5 H, RDW Coeff of Deborah 19.3 H, Plt Count 337, MPV 9.1, Immature Gran % (Auto) 1.600 H, Neut % (Auto) 79.8 H, Lymph % (Auto) 11.3 L, [place] % (Auto) 2.4, Eos % (Auto) 4.4, Baso % (Auto) 0.5, Absolute Neuts (auto) 4.9, Absolute Lymphs (auto) 0.70 L, Nucleated RBC % 0, Atypical Lymphocytes 1+, Anisocytosis 1+ 06/02/21 05:34: Sodium 143, Potassium 3.2 L, Chloride 117 H, Carbon Dioxide 19.0 L, Anion Gap 7, BUN 12, Creatinine 0.53 L, Estim Creat Clear Calc 93.36, Est GFR (MDRD) Af Amer 154, Est GFR (MDRD) Non-Af 127, BUN/Creatinine Ratio 22.8 H, Glucose 71 L, Calcium 8.1 L Charges/Coding Procedures Hospitalists Procedures: [id number] Critial Care 1st Hr
[2021-06-02 09:02] LABS: Iron 11 ug/dL (50-170); Iron Binding Capacity,Total 73 ug/dL (250-450); PERCENT IRON SATURATION 15.1 % (15.0-55.0)
--- NOTE | 2021-06-02 09:50 | PN.HOSP_ITS ---
Subjective Subjective Patient seen and examined. She is still very weak and lethargic. She was started on levophed due to low MAP overnight. She denies any fever, chills, nausea, vomiting or diarrhea. Review of system is otherwise negative. She is on IV vancomycin and zosyn Objective Data Objective Data Vital Signs: Vital Signs Temp Pulse Resp BP Pulse Ox 100.5 F H 74 16 114/69 99 06/02/21 08:00 06/02/21 09:30 06/02/21 09:00 06/02/21 09:30 06/02/21 09:00 Oxygen Flow Rate (L/min) 4 Oxygen Delivery Method Room Air Weight: 111 lb 5.335 oz Body Mass Index (BMI) 19.2 Intake & Output: Intake and Output for Last 24 Hours 05/31/21 06/01/21 06/02/21 23:59 23:59 23:59 Intake Total 3175 / 3175 2506.17 / 2506.17 Output Total 100 / 100 100 / 100 Balance 3075 / 3075 2406.17 / 2406.17 Lab / Micro Data Result Diagrams: 06/02/21 05:34 06/02/21 05:34 Labs: Laboratory Results - last 24 hr 06/01/21 12:15: WBC 9.3, RBC 3.11 L, Hgb 8.1 L, Hct 27.1 L, MCV 87.1, MCH 26.0 L , MCHC 29.9 L, RDW Std Deviation 61.2 H, RDW Coeff of Deborah 19.4 H, Plt Count 390, MPV 9.5, Immature Gran % (Auto) 2.600 H, Neut % (Auto) 87.5 H, Lymph % (Auto) 7.2 L, Harris % (Auto) 1.6, Eos % (Auto) 0.9, Baso % (Auto) 0.2, Absolute Neuts (auto) 8.2 H, Absolute Lymphs (auto) 0.67 L, Nucleated RBC % 0 06/01/21 12:15: Sodium 139, Potassium 3.3 L, Chloride 109 H, Carbon Dioxide 25.0, Anion Gap 5, BUN 14, Creatinine 0.82, Estim Creat Clear Calc 60.71, Est GFR (MDRD) Af Amer 92, Est GFR (MDRD) Non-Af 76, BUN/Creatinine Ratio 17.1, Glucose 91, Calcium 10.3 H, Total Bilirubin 0.20, AST 11 L, ALT 10 L, Alkaline Phosphatase 141 H, Troponin I High Sens 6, Total Protein 5.8 L, Albumin 1.7 L, Globulin 4.1, Albumin/Globulin Ratio 0.4 L 06/01/21 12:15: Lactic Acid 1.0 06/01/21 14:35: Urine Color Yellow, Urine Clarity Cloudy, Urine pH 5.0, Ur Specific [place] 1.025, Urine Protein 100 H, Urine Glucose (UA) Normal, Urine Ketones 15 H, Urine Occult Blood 250 H, Urine Nitrite Negative, Urine Bilirubin Negative, Urine Urobilinogen Normal, Ur Leukocyte Esterase 500 H, Urine RBC > 100 SEEN, Urine WBC >100 SEEN, Ur Squamous Epith Cells 5-10 SEEN, Urine Bacteria 0 SEEN, Urine Mucus 0 SEEN 06/02/21 05:34: WBC 6.2, RBC 2.74 L, Hgb 7.1 L, Hct 23.9 L, MCV 87.2, MCH 25.9 L , MCHC 29.7 L, RDW Std Deviation 61.5 H, RDW Coeff of Deborah 19.3 H, Plt Count 337, MPV 9.1, Immature Gran % (Auto) 1.600 H, Neut % (Auto) 79.8 H, Lymph % (Auto) 11.3 L, Harris % (Auto) 2.4, Eos % (Auto) 4.4, Baso % (Auto) 0.5, Absolute Neuts (auto) 4.9, Absolute Lymphs (auto) 0.70 L, Nucleated RBC % 0, Atypical Lymphocytes 1+, Anisocytosis 1+ 06/02/21 05:34: Sodium 143, Potassium 3.2 L, Chloride 117 H, Carbon Dioxide 19.0 L, Anion Gap 7, BUN 12, Creatinine 0.53 L, Estim Creat Clear Calc 93.36, Est GFR (MDRD) Af Amer 154, Est GFR (MDRD) Non-Af 127, BUN/Creatinine Ratio 22.8 H, Glucose 71 L, Calcium 8.1 L 06/02/21 08:15: Crossmatch See Detail 06/02/21 08:15: Iron 11 L, TIBC 73 L, Iron Saturation 15.1 Micro: Microbiology 03/26/22 14:35 Urine Catheter - Catheter Urine Culture - Preliminary Culture exhibits no growth. Physical Exam Const alert and oriented x3 General Appearance: cooperative Orientation / Consciousness: lethargic Nutritional Appearance: cachectic HEENT normocephalic, head/scalp atraumatic and hearing grossly normal bilaterally Head and Scalp: normocephalic Mouth: dry mucous membranes Eyes PERRL, EOMs intact bilaterally and conjunctivae normal Neck no lymphadenopathy, supple and no JVD Resp normal respiratory effort, no retractions, no use of accessory muscles and clear to auscultation bilaterally Cardio regular rate, regular rhythm, S1 normal heart sound, S2 normal heart sound and no murmurs GI normal to inspection, nondistended, normoactive bowel sounds, soft to palpation, non-tender and non-distended Extremity normal to inspection and no clubbing, cyanosis or edema Extremity Narrative: has paralysis of lower extremities Peripheral Pulses: Yes pulses 2+ throughout Skin Skin Narrative: sacral decubiitus ulcers, present on admission Neuro oriented x3 Neuro Narrative: power in lower extremities is 0/5 due to paralysis Sensorium / Orientation: awake and alert Psych affect normal Assessment & Plan Assessment/Plan (1) Weakness: (2) Acute hypotension: (3) Acute dehydration: PLAN: #Septic shock * patient didnt respond to IVF, and so had to be started on levophed overnight * blood cultures pending; urine culture negative * on IV vancomycin and zosyn. * encourage oral hydration * critical care on board * * #Acute on chronic Anemia: * hb is down to 7.1 today from 8.1. Being transfused with one unit of PRBC. * Iron panel showed iron of 11 with TIBC of 73. ferrittin is markedly elevated, pointing more towards an anemia of chronic disease picture. That being said, ferritin is also an acute phase reactant, and so may be elevated in the setting of her acute illness * transfuse with one unit of PRBC * will check stool for occult blood. * I #Hypokalemia: K is 3.2. Will replace and trend. #Hypercalcemia * calcium trended down today to 8.1. corrected calcium is 9.9. * improved with hydration. * will hydrate aggressively with IVF and trend #Chronic sacral decubitus ulcers * present on admission * consult wound care * on chronic zyvox due to osteomyelitis of the sacral decubitus ulcers * now on IV vancomycin and zosyn * #Renal cancer with mets to the bone and resultant paraplegia * follow with oncology on outpatient basis * #Hypertension; BP meds on hold o/a of shock #hypothyroidism: on synthroid DVT prophylaxis: lovenox Charges/Coding Visit Charges Inpatient E&M: 97298 Subs Hosp L3
[2021-06-02 09:56] LABS: Ferritin 1848 ng/mL (8-252)
[2021-06-02] MEDS: Acyclovir 200 MG Capsule 400 MG PO (10:34)
[2021-06-02] MEDS: Baclofen 10 MG Tablet 7.5 MG PO ×2 (10:35→21:31)
[2021-06-02] MEDS: APIXABAN 5 MG TABLET PO ×2 (10:36→21:31)
[2021-06-02] MEDS: Fluconazole 100 MG Tablet 400 MG PO (10:36)
[2021-06-02] MEDS: Potassium Chloride Oral Tablet 20 MEQ PO ×3 (10:36→17:51)
[2021-06-02] MEDS: TITRATION PARAMETER CHANGE 1 EACH IV (10:37)
[2021-06-02] MEDS: Ferrous Sulfate 325 MG Tablet PO ×2 (10:53→17:52)
[2021-06-02] MEDS: Piperacil/Tazobactam 3.375 GM/50 ML ML IV ×2 (15:16→21:34)
[2021-06-02] MEDS: Lactated Ringers 1,000 ML 999 ML IV (18:33)
[2021-06-02] MEDS: Vancomycin IV 500 MG/100 ML BAG 150 MG IV (19:35)
[2021-06-02] MEDS: Gabapentin 300 MG Capsule PO (21:31)
[2021-06-02] MEDS: Methadone 10 MG Tablet PO (21:31)
[2021-06-02] MEDS: Temazepam 15 MG Capsule 30 MG PO (21:31)
[2021-06-02] MEDS: MELATONIN 10 MG TABLET 20 MG PO (21:31)
[2021-06-03] VITALS (37 sets, daily range): BP systolic 78–119; BP diastolic 49–94; PULSE 61–96; RESP 11–20; TEMP 36.4–37.4; O2SAT 96–100
[2021-06-03] MEDS: 0.9% Normal Saline 1,000 ML 150 ML IV (01:48)
[2021-06-03 06:06] LABS: Absolute Lymphocyte Count 1.06 X10^3/uL (0.83-4.51); Absolute Neutrophil Count 2.8 X10^3/uL (2.0-7.7); Basophil# 0.03 X10^3/uL; Basophil% 0.6 % (0-1); Eosinophil# 0.45 X10^3/uL; Eosinophils% 9.6 % (0-5); Hematocrit 27.4 % (37-47); Hemoglobin 8.3 g/dL (12.0-15.0); Lymphocyte # 1.06 X10^3/ul (0.83-4.51); Lymphocyte % 22.6 % (19-41); Mean Corp Hgb Conc 30.3 g/dL (32-36); Mean Corpuscular Hgb 26.1 pg (27.0-32.0); Mean Corpuscular Volume 86.2 fL (81-99); Mean Platelet Vol. 9.1 fl (6.2-12.0); Monocyte# 0.23 X10^3/uL; Monocyte% 4.9 % (0-10); NRBC Flagged by Analyzer 0 % (0-5); Neutrophil # 2.84 X10^3/uL (2.7-7.7); Neutrophil % 60.4 % (47-70); Platelet Count 275 K/mm3 (150-450); RBC Distribution Width CV 18.4 % (11.6-14.6); RBC Distribution Width SD 58.4 fl (35.1-43.9); Red Blood Count 3.18 M/mm3 (4.2-5.4); White Blood Count 4.7 K/mm3 (4.4-11.0)
[2021-06-03 06:30] LABS: Anion Gap 5 (5-15); BUN 10 mg/dL (7-18); BUN/Creat Ratio 28.5 RATIO (10-20); Chloride 120 mmol/L (98-107); Creatinine, Serum 0.35 mg/dL (0.55-1.02); EST Glomerular Filtration Rate 203 mL/min (>60); Est Glom Filt Rate - Afr Amer 245 mL/min (>60); Estimated Creatinine Clearance 140.96 ml/min; Glucose 77 mg/dL (74-106); Potassium 3.7 mmol/L (3.5-5.1); Sodium Level 144 mmol/L (136-145)
[2021-06-03 06:34] LABS: Vancomycin, Trough Level 17.4 ug/mL (5.0-15.0)
[2021-06-03] MEDS: Vancomycin IV 500 MG/100 ML BAG 100 MG IV ×2 (06:38→17:21)
[2021-06-03] MEDS: Gabapentin 100 MG Capsule PO ×2 (06:42→13:41)
[2021-06-03] MEDS: Levothyroxine 75 MCG Tablet PO (06:43)
--- NOTE | 2021-06-03 06:51 | PCM.RX.CS ---
Consult Type of Consult: Follow-up Suspected Infection: Sepsis Labs: Sodium 144 mmol/L (136-145) 06/03/21 05:40 Potassium 3.7 mmol/L (3.5-5.1) 06/03/21 05:40 Chloride 120 mmol/L (98-107) H 06/03/21 05:40 Carbon Dioxide 19.0 mmol/L (21.0-32.0) L 06/03/21 05:40 Anion Gap 5 (5-15) 06/03/21 05:40 BUN 10 mg/dL (7-18) 06/03/21 05:40 Creatinine 0.35 mg/dL (0.55-1.02) L 06/03/21 05:40 Est GFR (MDRD) Af Amer 245 mL/min (>60) 06/03/21 05:40 Est GFR (MDRD) Non-Af 203 mL/min (>60) 06/03/21 05:40 BUN/Creatinine Ratio 28.5 RATIO (10-20) H 06/03/21 05:40 Glucose 77 mg/dL (74-106) 06/03/21 05:40 Vancomycin Trough 17.4 ug/mL (5.0-15.0) H 06/03/21 05:40 Microbiology: Microbiology 06/01/21 14:35 Urine Catheter - Catheter Urine Culture - Preliminary Culture exhibits no growth. Goal Trough: 15-20 mcg/mL Pharmacy Plan for Drug Dosing: VANCOMYCIN LEVEL RECEIVED Current Vancomycin Dose: 500mg Q12H Number of Doses Received: 3 Vancomycin Level: 17.4 Hours Since Last Dose: 10 Renal Function: sCr 0.35, CrCl ~ 70 ml/min Renal Function Trend: stable Lab/Micro: urine cx negative, blood cx pending Vancomycin Plan/Comments: Continue Vancomycin 500mg Q12H Pending Level: Vancomycin trough @ 1730 06/04/21 Pharmacy Service will continue to monitor and adjust dosing as required. Labs to be done on [date and time ordered]: Vancomycin trough @ 1730 06/04/21
--- NOTE | 2021-06-03 06:54 | PN.CC_ITS ---
Assessment & Plan Assessment/Plan (1) Acute hypotension: (2) Pressure ulcer of left buttock, stage 4: (3) Decubitus ulcer of right ischium, stage 4: (4) Chronic pain syndrome: (5) Metastatic renal cell carcinoma to bone: PLAN: RECOMMENDATIONS: 1. Continue empiric antibiotics pending cultures 2. Transfuse 1 unit packed red blood cells 3. Transition to LR for IV fluids 4. Potassium repletion as indicated 5. Wean Levophed as tolerated to maintain systolic greater than 90 6. Continue wound care of pressure ulcers IMPRESSIONS: 1. Septic shock Patient reportedly was volume depleted on presentation. Patient has received significant IV fluids, but ultimately required pressors overnight. Patient does not have significant leukocytosis or endorgan damage to suggest sepsis. Cultures are pending. Patient had appropriate incrementation from blood transfusion. Patient does appear to be volume responsive. May bolus additional fluids to attempt discontinuation of pressors. No further indication for transfusion of blood products. 2. Hypercalcemia/hypokalemia/renal cell cancer with mets to bone and secondary paraplegia Clinical suspicion for elevated calcium secondary to bony mets. Patient is receiving aggressive fluid resuscitation. Continue to replete potassium as necessary. Patient appears to be developing a hyperchloremic metabolic acidosis. We will transition to IV fluids with LR 3. Hypertension/stage IV decubitus ulcers/osteomyelitis of the pelvis/c hronic pain syndrome/history of nonischemic cardiomyopathy Complicates care, management, recovery and prognosis. Continue wound care. Patient was on linezolid previously. Previous cultures appear to show staph epidermidis. Leukocytosis is not present and patient has not been febril e. Consider infectious disease evaluation. Cultures are currently pending. Antihypertensives have been held secondary to problem #1. TIME: 31 minutes critical care time spent addressing patient's acute hypotension, anemia, hypercalcemia, hypokalemia, review of all data and collaboration with care team Subjective Subjective Patient did okay overnight. Patient remains on minimal Levophed to maintain blood pressures. Patient has been tolerating room air. Patient did have a fe yfn overnight with no significant change. Patient did have some marginal blood pressures through the day and was given a liter of LR with improvement in urine output overnight. Patient also received 1 unit of packed red blood cells yesterday and tolerated this well also. Objective Data Objective Data Vital Signs: Vital Signs Temp Pulse Resp BP Pulse Ox 37.2 C 63 12 89/59 L 100 06/03/21 04:00 06/03/21 06:30 06/03/21 06:00 06/03/21 06:30 06/03/21 06:00 Oxygen Flow Rate (L/min) 4 Oxygen Delivery Method Room Air Weight: 53.4 kg Body Mass Index (BMI) 19.2 Intake & Output: Intake and Output for Last 24 Hours 06/01/21 06/02/21 06/03/21 23:59 23:59 23:59 Intake Total 3175 / 3175 5583.98 / 5584.93 172.22 / 172.22 Output Total 100 / 100 725 / 725 600 / 600 Balance 3075 / 3075 4858.98 / 4859.93 -427.78 / -427.78 Medical Nutrition Assessment Dietitian: Malnutrition Criteria Met Start: 06/02/21 12:41 Freq: Status: Active Protocol: Document 06/02/21 12:42 REZA (Rec: 06/02/21 12:42 REZA [id number]) Nutrition Malnutrition Evidence of Malnutrition Exists Yes Malnutrition (severe): Chronic Evidenced By Suboptimal Energy Intake ( Severe),Weight Loss (Severe), Physical Changes (Moderate), Physical Changes (Severe) Clinical Problem Chronic Disease or Condition Related Malnutrition Etiology related to physiological causes leading to anorexia or diminished intakes as well as increased nutrient demand Signs/Symptoms as evidenced by right ischial pressure ulcer, chronic decubitus ulcerations including stage IV sacral pressure ulcer and stage IV left ischial pressure ulcer caused from paralysis 2/2 metastatic renal cell carcinoma, significant weight loss of 14.6% in ~2 months, prolonged poor oral intakes of less than 50% of estimated energy needs for greater than 5 days as well as moderate to severe muscle and fat wasting per NFPA findings. Status Active Problem Recommendation Dietitian Recommendations/Changes Regular diet. Ensure Enlive TID with meals and 120mL 4x/day with medpass. Charan BID with breakfast and dinner. Lab / Micro Data Result Diagrams: 06/03/21 05:40 06/03/21 05:40 Labs: Laboratory Results - last 24 hr 06/02/21 08:15: Blood Type A POSITIVE, Antibody Screen NEGATIVE, Crossmatch See Detail 06/02/21 08:15: Iron 11 L, TIBC 73 L, Iron Saturation 15.1 06/02/21 08:15: Ferritin 1848 H 06/03/21 05:40: WBC 4.7, RBC 3.18 L, Hgb 8.3 L, Hct 27.4 L, MCV 86.2, MCH 26.1 L , MCHC 30.3 L, RDW Std Deviation 58.4 H, RDW Coeff of Deborah 18.4 H, Plt Count 275, MPV 9.1, Immature Gran % (Auto) 1.900 H, Neut % (Auto) 60.4, Lymph % (Auto) 22.6, [place] % (Auto) 4.9, Eos % (Auto) 9.6 H, Baso % (Auto) 0.6, Absolute Neuts (auto) 2.8, Absolute Lymphs (auto) 1.06, Nucleated RBC % 0 06/03/21 05:40: Sodium 144, Potassium 3.7, Chloride 120 H, Carbon Dioxide 19.0 L , Anion Gap 5, BUN 10, Creatinine 0.35 L, Estim Creat Clear Calc 140.96, Est GFR (MDRD) Af Amer 245, Est GFR (MDRD) Non-Af 203, BUN/Creatinine Ratio 28.5 H, Glucose 77, Calcium 7.0 L 06/03/21 05:40: Vancomycin Trough 17.4 H Micro: Microbiology 06/01/21 14:35 Urine Catheter - Catheter Urine Culture - Preliminary Culture exhibits no growth. Physical Exam Const alert and oriented x3 Constitutional Narrative: Improved resting tremor hands noted General Appearance: cooperative HEENT normocephalic, head/scalp atraumatic and hearing grossly normal bilaterally Eyes PERRL, EOMs intact bilaterally and conjunctivae normal Neck no lymphadenopathy, supple and no JVD Resp normal respiratory effort, no retractions, no use of accessory muscles and clear to auscultation bilaterally Auscultation: Negative for rales, rhonchi or wheezes Cardio regular rate, regular rhythm, S1 normal heart sound and S2 normal heart sound Heart Sounds: Negative for gallop, murmur or rub GI normal to inspection, nondistended, normoactive bowel sounds, soft to palpation, non-tender and non-distended Extremity normal to inspection and no clubbing, cyanosis or edema Extremity Narrative: has paralysis of lower extremities Peripheral Pulses: Yes pulses 2+ throughout Skin Skin Narrative: Wound vacs in place Neuro oriented x3 Neuro Narrative: power in lower extremities is 0/5 due to paralysis Sensorium / Orientation: awake and alert Psych affect normal Charges/Coding Procedures Hospitalists Procedures: 42061 Critial Care 1st Hr
[2021-06-03] MEDS: Piperacil/Tazobactam 3.375 GM/50 ML ML IV ×3 (08:10→21:43)
[2021-06-03] MEDS: Lactated Ringers 1,000 ML 100 ML IV ×2 (08:10→17:27)
--- NOTE | 2021-06-03 09:16 | PN.HOSP_ITS ---
Subjective Subjective Follow-up on septic shock: Patient was seen and examined. No acute events overnight. She is on minimal amounts of Levophed. She denied any new complaint. Denied any fever or chills or diarrhea or nausea or vomiting. Objective Data Objective Data Vital Signs: Vital Signs Temp Pulse Resp BP Pulse Ox 97.7 F L 62 15 107/70 100 06/03/21 07:00 06/03/21 08:00 06/03/21 07:00 06/03/21 07:00 06/03/21 07:00 Oxygen Flow Rate (L/min) 4 Oxygen Delivery Method Room Air Weight: 53.4 kg Body Mass Index (BMI) 19.2 Intake & Output: Intake and Output for Last 24 Hours 06/01/21 06/02/21 06/03/21 23:59 23:59 23:59 Intake Total 3175 / 3175 5583.98 / 5584.93 1245.33 / 1245.33 Output Total 100 / 100 725 / 725 600 / 600 Balance 3075 / 3075 4858.98 / 4859.93 645.33 / 645.33 Medical Nutrition Assessment Dietitian: Malnutrition Criteria Met Start: 06/02/21 12:41 Freq: Status: Active Protocol: Document 06/02/21 12:42 REZA (Rec: 06/02/21 12:42 [email or web address] [id number]) Nutrition Malnutrition Evidence of Malnutrition Exists Yes Malnutrition (severe): Chronic Evidenced By Suboptimal Energy Intake ( Severe),Weight Loss (Severe), Physical Changes (Moderate), Physical Changes (Severe) Clinical Problem Chronic Disease or Condition Related Malnutrition Etiology related to physiological causes leading to anorexia or diminished intakes as well as increased nutrient demand Signs/Symptoms as evidenced by right ischial pressure ulcer, chronic decubitus ulcerations including stage IV sacral pressure ulcer and stage IV left ischial pressure ulcer caused from paralysis 2/2 metastatic renal cell carcinoma, significant weight loss of 14.6% in ~2 months, prolonged poor oral intakes of less than 50% of estimated energy needs for greater than 5 days as well as moderate to severe muscle and fat wasting per NFPA findings. Status Active Problem Recommendation Dietitian Recommendations/Changes Regular diet. Ensure Enlive TID with meals and 120mL 4x/day with medpass. Charan BID with breakfast and dinner. Lab / Micro Data Result Diagrams: 06/03/21 05:40 06/03/21 05:40 Labs: Laboratory Results - last 24 hr 06/02/21 08:15: Blood Type A POSITIVE, Antibody Screen NEGATIVE, Crossmatch See Detail 06/02/21 08:15: Ferritin 1848 H 06/03/21 05:40: WBC 4.7, RBC 3.18 L, Hgb 8.3 L, Hct 27.4 L, MCV 86.2, MCH 26.1 L , MCHC 30.3 L, RDW Std Deviation 58.4 H, RDW Coeff of Deborah 18.4 H, Plt Count 275, MPV 9.1, Immature Gran % (Auto) 1.900 H, Neut % (Auto) 60.4, Lymph % (Auto) 22.6, [place] % (Auto) 4.9, Eos % (Auto) 9.6 H, Baso % (Auto) 0.6, Absolute Neuts (auto) 2.8, Absolute Lymphs (auto) 1.06, Nucleated RBC % 0 06/03/21 05:40: Sodium 144, Potassium 3.7, Chloride 120 H, Carbon Dioxide 19.0 L , Anion Gap 5, BUN 10, Creatinine 0.35 L, Estim Creat Clear Calc 140.96, Est GFR (MDRD) Af Amer 245, Est GFR (MDRD) Non-Af 203, BUN/Creatinine Ratio 28.5 H, Glucose 77, Calcium 7.0 L 06/03/21 05:40: Vancomycin Trough 17.4 H Micro: Microbiology 06/01/21 14:35 Urine Catheter - Catheter Urine Culture - Preliminary Culture exhibits no growth. Physical Exam Narrative Physical exam: General: Alert, Oriented x3, Cooperative, No apparent distress, appears frail HEENT: Atraumatic Oral: Moist Mucosa Neck: Supple Lungs: Diminished to auscultation Cardiovascular: HS I+II, regular, no murmurs Abdomen: Bowel Sounds Present, Soft, Non Tender Extremities: No edema Neurological: Bilateral lower extremity weakness with power in the lower extremi ty of 0/5 Assessment & Plan Assessment/Plan (1) Weakness: (2) Acute hypotension: (3) Acute dehydration: PLAN: 1. Septic shock likely secondary to acute UTI/probable infected sacral decubitus ulcer Remains on minimal amounts of Levophed Urine cultures are negative, blood cultures are pending Continue on empiric IV Zosyn and vancomycin 2. Anemia, mixed, iron deficiency anemia/anemia of chronic disease Status post 1 unit of packed RBC, hemoglobin today is 8.3 Continue to trend 3. Hypokalemia, replaced 4. Hypercalcemia likely secondary to bony mets, improved Repeat blood work in am 5. Chronic sacral decubitus ulcers, POA Wound care consulted, will get wound cultures Continue on IV Zosyn and vancomycin 6. Metastatic renal cell CA, mets to the bone with resultant paraplegia Follows up with oncology in the outpatient 7. Hypertension, now hypotensive, blood pressure meds on hold 8. Potassium, continue Synthroid 9. DVT prophylaxis?Lovenox subcu Charges/Coding Visit Charges Inpatient E&M: 91075 Subs Hosp L2
[2021-06-03] MEDS: Potassium Chloride Oral Tablet 20 MEQ PO ×3 (09:39→17:26)
[2021-06-03] MEDS: Fluconazole 100 MG Tablet 400 MG PO (09:41)
[2021-06-03] MEDS: APIXABAN 5 MG TABLET PO ×2 (09:42→21:45)
[2021-06-03] MEDS: Baclofen 10 MG Tablet 7.5 MG PO ×2 (09:43→21:45)
[2021-06-03] MEDS: Acyclovir 200 MG Capsule 400 MG PO (09:44)
[2021-06-03] MEDS: Ferrous Sulfate 325 MG Tablet PO ×2 (12:55→17:26)
--- NOTE | 2021-06-03 13:09 | WOUNDNOTE ---
wound photo: bilateral ischium/sacrum
--- NOTE | 2021-06-03 13:10 | WOUNDNOTE ---
wound photo: left posterior knee
--- NOTE | 2021-06-03 13:55 | CASEMGMT ---
SHERRON MADRIGAL Face to Face with patient for initial transition planning/care coordination assessment. RN ROHAN introduced self and role at [facility]. Patient lying in bed, alert and oriented. Patient willing to participate in assessment and is able to answer all questions appropriately. Care providers, pharmacy, and demographics verified. Patient wishes to discharge home with resumption of HHC with [facility]. Patient states she has no further needs or concerns at this time. CM to follow for discharge planning needs that may arise. PCP: Jagruti Specialists: Sebas, plastics; Steffanie, oncologist [facility] Insurance: [employer] Prescription Benefit: yes Living Will/HPOA: yes, Lexii Dickson LNOK: Living Arrangements: Patient lives with in a single story home with ramp to enter the home. assists patient with care and ADLs at home. Transportation: DME/HHC: Patient has shower chair, raised toilet, hospital bed, grab bars, wheelchair at home. Patient is active with [facility] for C for wound care. Patient states she has completed IV ATBs at home previously. Disposition Plan: Patient to discharge home with resumption of HHC, family support, and follow-up plans in place. Maida GARCIA, RN, CM
[2021-06-03] MEDS: Methadone 10 MG Tablet PO (21:45)
[2021-06-03] MEDS: Gabapentin 300 MG Capsule PO (21:45)
[2021-06-03] MEDS: MELATONIN 10 MG TABLET 20 MG PO (21:45)
[2021-06-03] MEDS: Temazepam 15 MG Capsule 30 MG PO (21:45)
[2021-06-04] VITALS (46 sets, daily range): BP systolic 82–131; BP diastolic 52–90; PULSE 65–91; RESP 12–18; TEMP 36.6–38.1; O2SAT 94–100
[2021-06-04] MEDS: Lactated Ringers 1,000 ML 100 ML IV ×3 (02:46→22:56)
[2021-06-04 03:57] LABS: Absolute Lymphocyte Count 1.36 X10^3/uL (0.83-4.51); Absolute Neutrophil Count 3.9 X10^3/uL (2.0-7.7); Basophil# 0.02 X10^3/uL; Basophil% 0.3 % (0-1); Eosinophil# 0.42 X10^3/uL; Eosinophils% 6.9 % (0-5); Hematocrit 26.6 % (37-47); Hemoglobin 8.5 g/dL (12.0-15.0); Lymphocyte # 1.36 X10^3/ul (0.83-4.51); Lymphocyte % 22.4 % (19-41); Mean Corpuscular Hgb 26.6 pg (27.0-32.0); Mean Corpuscular Volume 83.4 fL (81-99); Mean Platelet Vol. 9.1 fl (6.2-12.0); Monocyte# 0.33 X10^3/uL; Monocyte% 5.4 % (0-10); NRBC Flagged by Analyzer 0 % (0-5); Neutrophil # 3.85 X10^3/uL (2.7-7.7); Neutrophil % 63.7 % (47-70); Platelet Count 288 K/mm3 (150-450); RBC Distribution Width CV 18.4 % (11.6-14.6); RBC Distribution Width SD 56.1 fl (35.1-43.9); Red Blood Count 3.19 M/mm3 (4.2-5.4); White Blood Count 6.1 K/mm3 (4.4-11.0)
[2021-06-04 04:17] LABS: ALB/GLOB Ratio 0.3 RATIO (0.9-2.4); AST(SGOT) 14 U/L (15-37); Alanine Aminotransfer ALT/SGPT 8 U/L (13-56); Albumin, Serum 0.9 g/dL (3.2-5.0); Alkaline Phosphatase 122 U/L (45-117); Anion Gap 3 (5-15); BUN 7 mg/dL (7-18); BUN/Creat Ratio 29.7 RATIO (10-20); Calcium,Total 6.9 mg/dL (8.5-10.1); Chloride 117 mmol/L (98-107); Creatinine, Serum 0.24 mg/dL (0.55-1.02); EST Glomerular Filtration Rate 321 mL/min (>60); Est Glom Filt Rate - Afr Amer 388 mL/min (>60); Estimated Creatinine Clearance 218.02 ml/min; Globulin 2.8 g/dL (2.2-4.2); Glucose 76 mg/dL (74-106); Potassium 3.9 mmol/L (3.5-5.1); Protein, Total 3.7 g/dL (6.4-8.2); Sodium Level 142 mmol/L (136-145)
[2021-06-04] MEDS: Vancomycin IV 500 MG/100 ML BAG 100 MG IV ×2 (05:10→17:24)
[2021-06-04] MEDS: Piperacil/Tazobactam 3.375 GM/50 ML ML IV ×3 (06:10→21:40)
[2021-06-04] MEDS: Levothyroxine 75 MCG Tablet PO (06:13)
[2021-06-04] MEDS: Gabapentin 100 MG Capsule PO ×2 (06:13→09:29)
--- NOTE | 2021-06-04 06:39 | PCM.PN.INT ---
Assessment & Plan Assessment/Plan (1) Acute hypotension: (2) Pressure ulcer of left buttock, stage 4: (3) Decubitus ulcer of right ischium, stage 4: (4) Chronic pain syndrome: (5) Metastatic renal cell carcinoma to bone: PLAN: RECOMMENDATIONS: 1. Continue antibiotics and wound care 2. Initiate midodrine 3. Wean pressors as tolerated for systolic greater than 90 4. Electrolyte repletion as indicated 5. Wean Levophed as tolerated to maintain systolic greater than 90 IMPRESSIONS: 1. Septic shock Patient reportedly was volume depleted on presentation. Patient has received significant IV fluids, but ultimately required pressors overnight. Patient does not have significant leukocytosis or endorgan damage to suggest sepsis. Cultures are pending. Patient had appropriate incrementation from blood transfusion. Patient does appear to be volume responsive. Attempts at fluid boluses were unsuccessful in improving blood pressure overnight. Patient may have an element of hypotension related to evening meds (methadone). Will initiate patient on midodrine. If successful, anticipate weaning over the next 3 to 5 days. 2. Hypercalcemia/hypokalemia/renal cell cancer with mets to bone and secondary paraplegia Clinical suspicion for elevated calcium secondary to bony mets. Patient is receiving aggressive fluid resuscitation. Continue to replete potassium as necessary. Patient appears to be developing a hyperchloremic metabolic acidosis. IV fluids are currently held. Patient is positive over 9 L over the course of the hospitalization, but is still tolerating room air. 3. Hypertension/stage IV decubitus ulcers/osteomyelitis of the pelvis/chronic pain syndrome/history of nonischemic cardiomyopathy Complicates care, management, recovery and prognosis. Continue wound care. Patient was on linezolid previously. Previous cultures appear to show staph epidermidis. Leukocytosis is not present and patient has not been febrile. Consider infectious disease evaluation. Cultures are currently pending. Antihypertensives have been held secondary to problem #1. TIME: 33 minutes critical care time spent addressing patient's acute hypotension, anemia, hypercalcemia, hypokalemia, review of all data and collaboration with care team Subjective Subjective Patient did okay overnight. Patient was actually off of pressors through the day yesterday, but had to be reinitiated overnight. Nursing stated that this was temporally related to evening med Pass. Patient with no new complaints this morning. Patient subjectively feels unchanged compared to previous. Objective Data Objective Data Vital Signs: Vital Signs Temp Pulse Resp BP Pulse Ox 37.2 C 66 17 110/58 L 98 06/04/21 00:00 06/04/21 05:00 06/04/21 05:00 06/04/21 05:00 06/04/21 05:00 Oxygen Flow Rate (L/min) 2 Oxygen Delivery Method Room Air Weight: 57.2 kg Body Mass Index (BMI) 19.2 Intake & Output: Intake and Output for Last 24 Hours 06/02/21 06/03/21 06/04/21 23:59 23:59 23:59 Intake Total 5583.98 / 5584.93 2505.51 / 2507.39 1099.70 / 1099.70 Output Total 725 / 725 1800 / 1800 375 / 375 Balance 4858.98 / 4859.93 705.51 / 707.39 724.70 / 724.70 Medical Nutrition Assessment Dietitian: Malnutrition Criteria Met Start: 06/02/21 12:41 Freq: Status: Active Protocol: Document 06/03/21 10:36 LIT (Rec: 06/03/21 10:36 LIT [id number]) Nutrition Malnutrition Evidence of Malnutrition Exists Yes Malnutrition (severe): Chronic Evidenced By Suboptimal Energy Intake ( Severe),Weight Loss (Severe), Physical Changes (Moderate), Physical Changes (Severe) Clinical Problem Chronic Disease or Condition Related Malnutrition Etiology related to physiological causes leading to decreased appetite and inability to consume adequate nutrition to meet est nutritional needs Signs/Symptoms as evidenced by right ischial pressure ulcer, chronic decubitus ulcerations including stage IV sacral pressure ulcer and stage IV left ischial pressure ulcer caused from paralysis d/t metastatic renal cell carcinoma, significant weight loss of 9.5% in ~2 months, prolonged poor oral intakes of less than 50% of estimated energy needs for greater than 1 month as well as moderate to severe muscle and fat wasting per NFPA findings. Status Active Problem Recommendation Dietitian Recommendations/Changes Regular diet w/ magic cup at meals. 120mL 4x/day with medpass. Charan BID with breakfast and dinner. Lab / Micro Data Result Diagrams: 06/04/21 03:50 06/04/21 03:50 Labs: Laboratory Results - last 24 hr 06/04/21 03:50: WBC 6.1, RBC 3.19 L, Hgb 8.5 L, Hct 26.6 L, MCV 83.4, MCH 26.6 L, MCHC 32.0 D, RDW Std Deviation 56.1 H, RDW Coeff of Deborah 18.4 H, Plt Count 288, MPV 9.1, Immature Gran % (Auto) 1.300 H, Neut % (Auto) 63.7, Lymph % (Auto) 22.4, [place] % (Auto) 5.4, Eos % (Auto) 6.9 H, Baso % (Auto) 0.3, Absolute Neuts (auto) 3.9, Absolute Lymphs (auto) 1.36, Nucleated RBC % 0 06/04/21 03:50: Sodium 142, Potassium 3.9, Chloride 117 H, Carbon Dioxide 22.0, Anion Gap 3 L, BUN 7, Creatinine 0.24 L, Estim Creat Clear Calc 218.02, Est GFR (MDRD) Af Amer 388, Est GFR (MDRD) Non-Af 321, BUN/Creatinine Ratio 29.7 H, Glucose 76, Calcium 6.9 L, Total Bilirubin 0.20, AST 14 L, ALT 8 L, Alkaline Phosphatase 122 H, Total Protein 3.7 L, Albumin 0.9 L, Globulin 2.8, Albumin/Globulin Ratio 0.3 L Micro: Microbiology 06/03/21 11:00 Wound - Sacral Gram Stain - Final 06/01/21 14:35 Urine Catheter - Catheter Urine Culture - Preliminary Yeast Like Organism Physical Exam Const alert and oriented x3 Constitutional Narrative: Improved resting tremor hands noted General Appearance: cooperative HEENT normocephalic, head/scalp atraumatic and hearing grossly normal bilaterally Eyes PERRL, EOMs intact bilaterally and conjunctivae normal Neck no lymphadenopathy, supple and no JVD Resp normal respiratory effort, no retractions, no use of accessory muscles and clear to auscultation bilaterally Auscultation: Negative for rales, rhonchi or wheezes Cardio regular rate, regular rhythm, S1 normal heart sound and S2 normal heart sound Heart Sounds: Negative for gallop, murmur or rub GI normal to inspection, nondistended, normoactive bowel sounds, soft to palpation, non-tender and non-distended Extremity normal to inspection and no clubbing, cyanosis or edema Extremity Narrative: has paralysis of lower extremities Peripheral Pulses: Yes pulses 2+ throughout Skin Skin Narrative: Wound vacs in place Neuro oriented x3 Neuro Narrative: power in lower extremities is 0/5 due to paralysis Sensorium / Orientation: awake and alert Psych affect normal Charges/Coding Procedures Hospitalists Procedures: [id number] Critial Care 1st Hr
[2021-06-04] MEDS: Midodrine HCl 5 MG Tablet 10 MG PO ×3 (07:05→16:50)
--- NOTE | 2021-06-04 07:17 | PN.HOSP_ITS ---
Subjective Subjective Follow-up on septic shock: Patient was seen and examined. Patient has been on and off Levophed. No other acute events overnight. Objective Data Objective Data Vital Signs: Vital Signs Temp Pulse Resp BP Pulse Ox 99 F 78 17 83/55 L 99 06/04/21 00:00 06/04/21 07:00 06/04/21 07:00 06/04/21 07:00 06/04/21 07:00 Oxygen Flow Rate (L/min) 2 Oxygen Delivery Method Room Air Weight: 57.2 kg Body Mass Index (BMI) 19.2 Intake & Output: Intake and Output for Last 24 Hours 06/02/21 06/03/21 06/04/21 23:59 23:59 23:59 Intake Total 5583.98 / 5584.93 2505.51 / 2507.39 1101.13 / 1101.13 Output Total 725 / 725 1800 / 1800 375 / 375 Balance 4858.98 / 4859.93 705.51 / 707.39 726.13 / 726.13 Medical Nutrition Assessment Dietitian: Malnutrition Criteria Met Start: 06/02/21 12:41 Freq: Status: Active Protocol: Document 06/03/21 10:36 LIT (Rec: 06/03/21 10:36 LIT [id number]) Nutrition Malnutrition Evidence of Malnutrition Exists Yes Malnutrition (severe): Chronic Evidenced By Suboptimal Energy Intake ( Severe),Weight Loss (Severe), Physical Changes (Moderate), Physical Changes (Severe) Clinical Problem Chronic Disease or Condition Related Malnutrition Etiology related to physiological causes leading to decreased appetite and inability to consume adequate nutrition to meet est nutritional needs Signs/Symptoms as evidenced by right ischial pressure ulcer, chronic decubitus ulcerations including stage IV sacral pressure ulcer and stage IV left ischial pressure ulcer caused from paralysis d/t metastatic renal cell carcinoma, significant weight loss of 9.5% in ~2 months, prolonged poor oral intakes of less than 50% of estimated energy needs for greater than 1 month as well as moderate to severe muscle and fat wasting per NFPA findings. Status Active Problem Recommendation Dietitian Recommendations/Changes Regular diet w/ magic cup at meals. 120mL 4x/day with medpass. Charan BID with breakfast and dinner. Lab / Micro Data Result Diagrams: 06/04/21 03:50 06/04/21 03:50 Labs: Laboratory Results - last 24 hr 06/04/21 03:50: WBC 6.1, RBC 3.19 L, Hgb 8.5 L, Hct 26.6 L, MCV 83.4, MCH 26.6 L , MCHC 32.0 D, RDW Std Deviation 56.1 H, RDW Coeff of Deborah 18.4 H, Plt Count 288, MPV 9.1, Immature Gran % (Auto) 1.300 H, Neut % (Auto) 63.7, Lymph % (Auto) 22.4, [place] % (Auto) 5.4, Eos % (Auto) 6.9 H, Baso % (Auto) 0.3, Absolute Neuts (auto) 3.9, Absolute Lymphs (auto) 1.36, Nucleated RBC % 0 06/04/21 03:50: Sodium 142, Potassium 3.9, Chloride 117 H, Carbon Dioxide 22.0, Anion Gap 3 L, BUN 7, Creatinine 0.24 L, Estim Creat Clear Calc 218.02, Est GFR (MDRD) Af Amer 388, Est GFR (MDRD) Non-Af 321, BUN/Creatinine Ratio 29.7 H, Glucose 76, Calcium 6.9 L, Total Bilirubin 0.20, AST 14 L, ALT 8 L, Alkaline Phosphatase 122 H, Total Protein 3.7 L, Albumin 0.9 L, Globulin 2.8, Albumin/Globulin Ratio 0.3 L Micro: Microbiology 06/03/21 11:00 Wound - Sacral Gram Stain - Final 06/01/21 14:35 Urine Catheter - Catheter Urine Culture - Preliminary Yeast Like Organism Physical Exam Narrative Physical exam: General: Alert, Oriented x3, Cooperative, No apparent distress, appears frail HEENT: Atraumatic Oral: Moist Mucosa Neck: Supple Lungs: Diminished to auscultation Cardiovascular: HS I+II, regular, no murmurs Abdomen: Bowel Sounds Present, Soft, Non Tender Extremities: No edema Neurological: Bilateral lower extremity weakness with power in the lower extremity of 0/5, in offloading boots Assessment & Plan Assessment/Plan (1) Weakness: (2) Acute hypotension: (3) Acute dehydration: PLAN: 1. Septic shock likely secondary to acute UTI/probable infected sacral decubitus ulcer Remains on minimal amounts of Levophed; started on oral Midodrine Urine cultures are growing probable yeast-like organisms, blood cultures are pending Continue on empiric IV Zosyn and vancomycin Patient is already on Diflucan Changes made to chronic pain meds to offset potential hypotension side-effects - methadone decreased to 5mg QHS 2. Anemia, mixed; iron deficiency anemia/anemia of chronic disease Status post 1 unit of packed RBC, hemoglobin is stable at 8.5 Continue on oral iron. Continue to trend 3. Hypokalemia, replaced 4. Hypercalcemia likely secondary to bony mets, improved Repeat blood work in am 5. Chronic sacral decubitus ulcers, POA Wound care consulted; wound cultures are pending Continue on IV Zosyn and vancomycin 6. 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 Hypertension, now hypotensive, blood pressure meds on hold Will resume cautiously 8. Hypothyroidism, continue Synthroid 9. DVT prophylaxis?Eliquis Charges/Coding Visit Charges Inpatient E&M: 14695 Subs Hosp L2
[2021-06-04] MEDS: Potassium Chloride Oral Tablet 20 MEQ PO ×3 (09:27→16:50)
[2021-06-04] MEDS: APIXABAN 5 MG TABLET PO ×2 (09:28→21:42)
[2021-06-04] MEDS: Fluconazole 100 MG Tablet 400 MG PO (09:28)
[2021-06-04] MEDS: Baclofen 10 MG Tablet 7.5 MG PO ×2 (09:29→21:42)
[2021-06-04] MEDS: Acyclovir 200 MG Capsule 400 MG PO (09:29)
[2021-06-04] MEDS: Ferrous Sulfate 325 MG Tablet PO ×2 (11:29→16:51)
[2021-06-04 18:16] LABS: Vancomycin, Trough Level 18.3 ug/mL (5.0-15.0)
--- NOTE | 2021-06-04 18:50 | PCM.RX.CS ---
Consult Pharmacy has been consulted to manage selected antiobiotic: Vancomycin Type of Consult: Follow-up Prior Doses of Antibiotics Received/Current Regimen: current dose is vanc 500mg IV q12h Labs: Sodium 142 mmol/L (136-145) 06/04/21 03:50 Potassium 3.9 mmol/L (3.5-5.1) 06/04/21 03:50 Chloride 117 mmol/L (98-107) H 06/04/21 03:50 Carbon Dioxide 22.0 mmol/L (21.0-32.0) 06/04/21 03:50 Anion Gap 3 (5-15) L 06/04/21 03:50 BUN 7 mg/dL (7-18) 06/04/21 03:50 Creatinine 0.24 mg/dL (0.55-1.02) L 06/04/21 03:50 Est GFR (MDRD) Af Amer 388 mL/min (>60) 06/04/21 03:50 Est GFR (MDRD) Non-Af 321 mL/min (>60) 06/04/21 03:50 BUN/Creatinine Ratio 29.7 RATIO (10-20) H 06/04/21 03:50 Glucose 76 mg/dL (74-106) 06/04/21 03:50 Vancomycin Trough 18.3 ug/mL (5.0-15.0) H 06/04/21 17:25 Microbiology: Microbiology 06/01/21 14:35 Urine Catheter - Catheter Urine Culture - Final Yeast, not Jessica albicans 06/03/21 11:00 Wound - Sacral Gram Stain - Final 06/03/21 11:00 Wound - Sacral Wound Culture - Preliminary Mixed Gram Positive Organisms 06/01/21 14:00 Blood Culture (Wb) - Anticubital Left Blood Culture - Preliminary No growth in 48 hours. 06/01/21 12:15 Blood Culture (Wb) - Port Blood Culture - Preliminary No growth in 48 hours. Weight used for dosin.2 kg Estimated Creatinine Clearance: 93ml/min Goal Trough: 15-20 mcg/mL Pharmacy Plan for Drug Dosing: The vanc trough drawn at 17:25 tonight (approx 12 hrs after the previous dose) was 18.3. This is again within goal range so will keep same dosing. Since the patient is in ICU, will repeat another trough in approximately 2 1/2 days. Pharmacy Service will continue to monitor and adjust dosing as required. Follow-Up Labs: Trough Vancomycin Labs to be done on [date and time ordered]: 06/07/21 [id number]
[2021-06-04] MEDS: 0.9% Saline Lock 10 ML Syringe IV (21:41)
[2021-06-04] MEDS: Acetaminophen 325 MG Tablet 650 MG PO (21:56)
[2021-06-05] VITALS (17 sets, daily range): BP systolic 90–112; BP diastolic 54–74; PULSE 61–116; RESP 11–18; TEMP 36.4–37.6; O2SAT 96–99
[2021-06-05] MEDS: MELATONIN 10 MG TABLET PO (00:47)
[2021-06-05 03:55] LABS: Absolute Lymphocyte Count 1.72 X10^3/uL (0.83-4.51); Absolute Neutrophil Count 4.3 X10^3/uL (2.0-7.7); Basophil# 0.07 X10^3/uL; Eosinophil# 0.51 X10^3/uL; Eosinophils% 7.1 % (0-5); Hematocrit 27.4 % (37-47); Hemoglobin 8.8 g/dL (12.0-15.0); Lymphocyte # 1.72 X10^3/ul (0.83-4.51); Mean Corp Hgb Conc 32.1 g/dL (32-36); Mean Corpuscular Hgb 26.8 pg (27.0-32.0); Mean Corpuscular Volume 83.5 fL (81-99); Mean Platelet Vol. 9.1 fl (6.2-12.0); Monocyte# 0.48 X10^3/uL; Monocyte% 6.7 % (0-10); NRBC Flagged by Analyzer 0 % (0-5); Neutrophil % 59.8 % (47-70); Platelet Count 307 K/mm3 (150-450); RBC Distribution Width CV 18.3 % (11.6-14.6); RBC Distribution Width SD 55.7 fl (35.1-43.9); Red Blood Count 3.28 M/mm3 (4.2-5.4); White Blood Count 7.2 K/mm3 (4.4-11.0)
[2021-06-05 04:28] LABS: ALB/GLOB Ratio 0.3 RATIO (0.9-2.4); AST(SGOT) 16 U/L (15-37); Alanine Aminotransfer ALT/SGPT 7 U/L (13-56); Albumin, Serum 0.9 g/dL (3.2-5.0); Alkaline Phosphatase 132 U/L (45-117); Anion Gap 2 (5-15); BUN 7 mg/dL (7-18); BUN/Creat Ratio 28.1 RATIO (10-20); Chloride 116 mmol/L (98-107); Creatinine, Serum 0.25 mg/dL (0.55-1.02); EST Glomerular Filtration Rate 301 mL/min (>60); Est Glom Filt Rate - Afr Amer 365 mL/min (>60); Estimated Creatinine Clearance 224.19 ml/min; Globulin 2.7 g/dL (2.2-4.2); Glucose 75 mg/dL (74-106); Potassium 4.2 mmol/L (3.5-5.1); Protein, Total 3.6 g/dL (6.4-8.2); Sodium Level 141 mmol/L (136-145)
[2021-06-05] MEDS: Vancomycin IV 500 MG/100 ML BAG 100 MG IV ×2 (05:09→17:00)
[2021-06-05] MEDS: Piperacil/Tazobactam 3.375 GM/50 ML ML IV ×3 (05:09→22:52)
[2021-06-05] MEDS: Levothyroxine 75 MCG Tablet PO (05:23)
--- NOTE | 2021-06-05 06:55 | PN.CC_ITS ---
Assessment & Plan Assessment/Plan (1) Acute hypotension: (2) Pressure ulcer of left buttock, stage 4: (3) Decubitus ulcer of right ischium, stage 4: (4) Chronic pain syndrome: (5) Metastatic renal cell carcinoma to bone: PLAN: RECOMMENDATIONS: 1. Continue antibiotics and wound care 2. Continue midodrine. Possibly start weaning tomorrow 3. Wean pressors as tolerated for systolic greater than 90 4. Electrolyte repletion as indicated 5. Reinitiate medications in a stepwise fashion 6. Okay to leave the intensive care unit from my perspective 7. Hemodynamically stable on room air. Will sign off from a critical care perspective IMPRESSIONS: 1. Septic shock Patient reportedly was volume depleted on presentation. Patient has received significant IV fluids, but ultimately required pressors overnight. Patient does not have significant leukocytosis or endorgan damage to suggest sepsis. Cultures are pending. Patient had appropriate incrementation from blood transfusion. Patient does appear to be volume responsive. Patient has responded well to midodrine therapy. If successful, anticipate weaning over the next 3 to 5 days. Patient is significantly positive over the course of the hospitalization. Will discontinue IV fluids. 2. Hypercalcemia/hypokalemia/renal cell cancer with mets to bone and secondary paraplegia Clinical suspicion for elevated calcium secondary to bony mets. Patient is receiving aggressive fluid resuscitation. Continue to replete potassium as necessary. Patient appears to be developing a hyperchloremic metabolic acidosis. IV fluids are will be held. Patient is positive over 12 L over the course of the hospitalization, but is still tolerating room air. Patient may benefit from some diuretics once off of midodrine therapy 3. Hypertension/stage IV decubitus ulcers/osteomyelitis of the pelvis/chronic pain syndrome/history of nonischemic cardiomyopathy Complicates care, management, recovery and prognosis. Continue wound care. Patient was on linezolid previously. Previous cultures appear to show staph epidermidis. Leukocytosis is not present and patient has not been febrile. Cultures are currently pending. Antihypertensives have been held secondary to problem #1. Will reinitiate Restoril for tonight. Continue other medications at lower dosing Subjective Subjective Patient did okay overnight from a hemodynamic standpoint. Patient is frustrated that she was unable to sleep overnight secondary to medication changes. Patient states pain is controlled at this time. Patient is asking about the compaction as her normally does this on a daily basis. Nursing is reporting wound VAC needs to be changed today. Objective Data Objective Data Vital Signs: Vital Signs Temp Pulse Resp BP Pulse Ox 37.0 C 66 12 95/62 97 06/05/21 04:00 06/05/21 05:00 06/05/21 05:00 06/05/21 05:00 06/05/21 05:00 Oxygen Flow Rate (L/min) 2 Oxygen Delivery Method Room Air Weight: 57.2 kg Body Mass Index (BMI) 19.2 Intake & Output: Intake and Output for Last 24 Hours 06/03/21 06/04/21 06/05/21 23:59 23:59 23:59 Intake Total 2505.51 / 2507.39 4400.13 / 4400.13 50 / 50 Output Total 1800 / 1800 875 / 1175 300 / 300 Balance 705.51 / 707.39 3525.13 / 3225.13 -250 / -250 Medical Nutrition Assessment Dietitian: Malnutrition Criteria Met Start: 06/02/21 12:41 Freq: Status: Active Protocol: Document 06/04/21 09:29 AG (Rec: 06/04/21 10:45 [id number]) Nutrition Malnutrition Evidence of Malnutrition Exists Yes Malnutrition (severe): Chronic Evidenced By Suboptimal Energy Intake ( Severe),Weight Loss (Severe), Physical Changes (Severe) Clinical Problem Chronic Disease or Condition Related Malnutrition Etiology chronic, severe malnutrition r /t inadequate energy intake w/ increased nutrient needs d/t metastatic disease Signs/Symptoms as evidenced by estimated PO intake meeting <75% of estimated energy needs >3 months; unintentional wt loss of 34#/21% x 10 months; severe muscle wasting/fat loss per physical exam Status Active Problem Recommendation Dietitian Recommendations/Changes Continue regular diet as tolerated. Will adjust ONS to: Ensure Enlive Pray 240mL TID w/ meals, Fruit Punch Charan BID, [place] Magic Cup BID Lab / Micro Data Result Diagrams: 06/05/21 03:40 06/05/21 03:40 Labs: Laboratory Results - last 24 hr 06/04/21 17:25: Vancomycin Trough 18.3 H 06/05/21 03:40: WBC 7.2, RBC 3.28 L, Hgb 8.8 L, Hct 27.4 L, MCV 83.5, MCH 26.8 L , MCHC 32.1, RDW Std Deviation 55.7 H, RDW Coeff of Deborah 18.3 H, Plt Count 307, MPV 9.1, Immature Gran % (Auto) 1.400 H, Neut % (Auto) 59.8, Lymph % (Auto) 24.0, [place] % (Auto) 6.7, Eos % (Auto) 7.1 H, Baso % (Auto) 1.0, Absolute Neuts (auto) 4.3, Absolute Lymphs (auto) 1.72, Nucleated RBC % 0 06/05/21 03:40: Sodium 141, Potassium 4.2, Chloride 116 H, Carbon Dioxide 23.0, Anion Gap 2 L, BUN 7, Creatinine 0.25 L, Estim Creat Clear Calc 224.19, Est GFR (MDRD) Af Amer 365, Est GFR (MDRD) Non-Af 301, BUN/Creatinine Ratio 28.1 H, Glucose 75, Calcium 7.0 L, Total Bilirubin 0.30, AST 16, ALT 7 L, Alkaline Phosphatase 132 H, Total Protein 3.6 L, Albumin 0.9 L, Globulin 2.7, Albumin/Gl obulin Ratio 0.3 L Micro: Microbiology 06/01/21 14:35 Urine Catheter - Catheter Urine Culture - Final Yeast, not Jessica albicans 06/03/21 11:00 Wound - Sacral Gram Stain - Final 06/03/21 11:00 Wound - Sacral Wound Culture - Preliminary Mixed Gram Positive Organisms 06/01/21 14:00 Blood Culture (Wb) - Anticubital Left Blood Culture - Preliminary No growth in 48 hours. 06/01/21 12:15 Blood Culture (Wb) - Port Blood Culture - Preliminary No growth in 48 hours. Physical Exam Const alert and oriented x3 Constitutional Narrative: Improved resting tremor hands noted. Much more alert and interactive at this time General Appearance: cooperative HEENT normocephalic, head/scalp atraumatic and hearing grossly normal bilaterally Eyes PERRL, EOMs intact bilaterally and conjunctivae normal Neck no lymphadenopathy, supple and no JVD Resp normal respiratory effort, no retractions, no use of accessory muscles and clear to auscultation bilaterally Auscultation: Negative for rales, rhonchi or wheezes Cardio regular rate, regular rhythm, S1 normal heart sound and S2 normal heart sound Heart Sounds: Negative for gallop, murmur or rub GI normal to inspection, nondistended, normoactive bowel sounds, soft to palpation, non-tender and non-distended Extremity normal to inspection and no clubbing, cyanosis or edema Extremity Narrative: has paralysis of lower extremities Peripheral Pulses: Yes pulses 2+ throughout Skin Skin Narrative: Wound vacs in place Neuro oriented x3 Neuro Narrative: power in lower extremities is 0/5 due to paralysis Sensorium / Orientation: awake and alert Psych affect normal Charges/Coding Visit Charges Inpatient E&M: 04475 Subs Hosp L3
--- NOTE | 2021-06-05 07:17 | PN.HOSP_ITS ---
Subjective Subjective Follow-up on septic shock: Patient was seen and examined. No other acute events overnight. He has been off Levophed. Denies any fever or chills. Objective Data Objective Data Vital Signs: Vital Signs Temp Pulse Resp BP Pulse Ox 98.6 F 66 12 95/62 97 06/05/21 04:00 06/05/21 05:00 06/05/21 05:00 06/05/21 05:00 06/05/21 05:00 Oxygen Flow Rate (L/min) 2 Oxygen Delivery Method Room Air Weight: 57.2 kg Body Mass Index (BMI) 19.2 Intake & Output: Intake and Output for Last 24 Hours 06/03/21 06/04/21 06/05/21 23:59 23:59 23:59 Intake Total 2505.51 / 2507.39 4400.13 / 4400.13 50 / 50 Output Total 1800 / 1800 875 / 1175 300 / 300 Balance 705.51 / 707.39 3525.13 / 3225.13 -250 / -250 Medical Nutrition Assessment Dietitian: Malnutrition Criteria Met Start: 06/02/21 12:41 Freq: Status: Active Protocol: Document 06/04/21 09:29 AG (Rec: 06/04/21 10:45 [id number]) Nutrition Malnutrition Evidence of Malnutrition Exists Yes Malnutrition (severe): Chronic Evidenced By Suboptimal Energy Intake ( Severe),Weight Loss (Severe), Physical Changes (Severe) Clinical Problem Chronic Disease or Condition Related Malnutrition Etiology chronic, severe malnutrition r /t inadequate energy intake w/ increased nutrient needs d/t metastatic disease Signs/Symptoms as evidenced by estimated PO intake meeting <75% of estimated energy needs >3 months; unintentional wt loss of 34#/21% x 10 months; severe muscle wasting/fat loss per physical exam Status Active Problem Recommendation Dietitian Recommendations/Changes Continue regular diet as tolerated. Will adjust ONS to: Ensure Enlive [place] 240mL TID w/ meals, Fruit Punch Charan BID, Soto Magic Cup BID Lab / Micro Data Result Diagrams: 06/05/21 03:40 06/05/21 03:40 Labs: Laboratory Results - last 24 hr 06/04/21 17:25: Vancomycin Trough 18.3 H 06/05/21 03:40: WBC 7.2, RBC 3.28 L, Hgb 8.8 L, Hct 27.4 L, MCV 83.5, MCH 26.8 L , MCHC 32.1, RDW Std Deviation 55.7 H, RDW Coeff of Deborah 18.3 H, Plt Count 307, MPV 9.1, Immature Gran % (Auto) 1.400 H, Neut % (Auto) 59.8, Lymph % (Auto) 24.0, [place] % (Auto) 6.7, Eos % (Auto) 7.1 H, Baso % (Auto) 1.0, Absolute Neuts (auto) 4.3, Absolute Lymphs (auto) 1.72, Nucleated RBC % 0 06/05/21 03:40: Sodium 141, Potassium 4.2, Chloride 116 H, Carbon Dioxide 23.0, Anion Gap 2 L, BUN 7, Creatinine 0.25 L, Estim Creat Clear Calc 224.19, Est GFR (MDRD) Af Amer 365, Est GFR (MDRD) Non-Af 301, BUN/Creatinine Ratio 28.1 H, Glucose 75, Calcium 7.0 L, Total Bilirubin 0.30, AST 16, ALT 7 L, Alkaline Phosphatase 132 H, Total Protein 3.6 L, Albumin 0.9 L, Globulin 2.7, Albumin/Globulin Ratio 0.3 L Micro: Microbiology 06/01/21 14:35 Urine Catheter - Catheter Urine Culture - Final Yeast, not Jessica albicans 06/03/21 11:00 Wound - Sacral Gram Stain - Final 06/03/21 11:00 Wound - Sacral Wound Culture - Preliminary Mixed Gram Positive Organisms 06/01/21 14:00 Blood Culture (Wb) - Anticubital Left Blood Culture - Preliminary No growth in 48 hours. 06/01/21 12:15 Blood Culture (Wb) - Port Blood Culture - Preliminary No growth in 48 hours. Physical Exam Narrative Physical exam: General: Alert, Oriented x3, Cooperative, No apparent distress, appears frail HEENT: Atraumatic Oral: Moist Mucosa Neck: Supple Lungs: Diminished to auscultation Cardiovascular: HS I+II, regular, no murmurs Abdomen: Bowel Sounds Present, Soft, Non Tender Extremities: No edema Neurological: Bilateral lower extremity weakness with power in the lower extremity of 0/5, in offloading boots Assessment & Plan Assessment/Plan (1) Weakness: (2) Acute hypotension: (3) Acute dehydration: PLAN: 1. Septic shock likely secondary to acute UTI/probable infected sacral decubitus ulcer Off Levophed; started on oral Midodrine Urine cultures are growing probable yeast-like organisms, blood cultures are pending Continue on empiric IV Zosyn and vancomycin; ID consulted Patient is already on Diflucan Changes made to chronic pain meds to offset potential hypotension side-effects - methadone decreased to 5mg QHS 2. Anemia, mixed; iron deficiency anemia/anemia of chronic disease Status post 1 unit of packed RBC, hemoglobin is stable at 8.8 Continue on oral iron. Continue to trend 3. Hypokalemia, replaced 4. Hypercalcemia likely secondary to bony mets, improved Repeat blood work in am 5. Chronic sacral decubitus ulcers, POA Wound care consulted; wound cultures are pending Continue on IV Zosyn and vancomycin 6. 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 Hypertension, now hypotensive, blood pressure meds on hold Will resume cautiously 8. Hypothyroidism, continue Synthroid 9. DVT prophylaxis?Eliquis Charges/Coding Visit Charges Inpatient E&M: 50684 Subs Hosp L2
[2021-06-05] MEDS: proMETHazine 25 MG Tablet 12.5 MG PO (07:57)
--- NOTE | 2021-06-05 09:30 | CASEMGMT ---
SHERRON MADRIGAL Note: Call placed to Kathleen @ [facility]. Pt is active w/them for SN. Kathleen made aware pt admitted on 06/01 and anticipate d/c home w/[facility]. SHERRON MADRIGAL will continue to follow. Isael GARCIA RN CM
[2021-06-05] MEDS: Baclofen 10 MG Tablet 7.5 MG PO ×2 (11:31→23:48)
[2021-06-05] MEDS: Midodrine HCl 5 MG Tablet 10 MG PO ×2 (11:31→17:00)
[2021-06-05] MEDS: Gabapentin 100 MG Capsule PO (11:31)
[2021-06-05] MEDS: Fluconazole 100 MG Tablet 400 MG PO (11:31)
[2021-06-05] MEDS: Acyclovir 200 MG Capsule 400 MG PO (11:31)
[2021-06-05] MEDS: APIXABAN 5 MG TABLET PO ×2 (11:31→23:47)
[2021-06-05] MEDS: Ferrous Sulfate 325 MG Tablet PO ×2 (11:32→17:03)
--- NOTE | 2021-06-05 11:39 | CHAPLAIN ---
Type of Pastoral Visit _x__ Initial Visit ___ Follow-up Visit ___ On-call Visit ___ General Patient Visit ___ Spiritual Assessment ___ Family Conference ___ Bereavement ___ Rapid Response ___ Code Blue ___ Other (describe below) Pastoral Care Referral From _x__ Patient ___ Family ___ Nurse ___ Physician ___ Online Services Manager ___ Paper Stripper ___ Other (describe below) Sacrament/Intervention _x__ Active listening ___ Anointing ___ Adventist ___ Bereavement ___ Communion ___ Etta exploration ___ ___ Life review ___ Prayer ___ Reconciliation ___ Sacrament of Sick _x__ Supportive presence ___ Wedding ___ Other (describe below) Pastoral Comments
--- NOTE | 2021-06-05 12:28 | PCM.CONS.GEN ---
Assessment & Plan Assessment/Plan (1) Osteomyelitis of pelvis: PLAN: Here with septic shock, improved. On empiric vanc/zosyn, cxs pending. Follows at wound center, reviewed photos. Did have single tissue cx 2/2 with aspergillus. Other fungal cx x2 with c.parapsilosis at that same time. Has been on fluconazole. Last CT abd/pelvis was 05/24. Will follow, thank you HPI Consult Data Date of Consult: 06/05/21 HPI Narrative HPI Narrative: SCOTTY REDMOND, is a 55 F with paraplegia, recurrent pelvic osteo, presented with about a week of chills, shakes, weakness. Has been on po abx for osteo. Saw PCP and another antibiotic was added but she is not sure what. Came to ED, admitted to icu with hypotension, pressors, vanc/zosyn. Feeling better this Am. Full ROS performed and neg except as noted above. [facility] Medical History Acute postoperative anemia due to expected blood loss Acute renal failure KELLEE (acute kidney injury) Atelectasis of left lung Cancer Cardiology follow-up encounter Chronic pain syndrome Easy bruising Encephalopathy acute Excessive bleeding Fever Gastric reflux History of irregular heartbeat History of migraine History of non-ST elevation myocardial infarction (NSTEMI) (01/28/19) Immunocompromised state Indwelling urethral catheter present Low iron Malignant neoplasm of unspecified kidney, except renal pelvis Metastatic renal cell carcinoma to bone Non-ischemic cardiomyopathy Non-smoker Nonobstructive atherosclerosis of coronary artery Paralysis Paraplegia following spinal cord injury Post-menopausal Pressure sore of left ischium, stage 4 Pressure ulcer of left buttock, stage 4 Pulmonary embolism Rheumatoid arthritis Right pulmonary embolus (01/28/19) Sacral decubitus ulcer, stage IV Second degree burn of thigh Sepsis Sepsis Septic shock (01/29/19) Single kidney Takotsubo syndrome Thyroid disease Uses wheelchair Home Medications temazepam 30 mg PO QHS 12/12/18 [History Last Taken 04/07/21] apixaban 5 mg PO BID 02/07/19 [History Last Taken 04/08/21] acyclovir 400 mg tablet 400 mg PO DAILY tab 08/19/19 [History Last Taken 04/08/21] methadone 5 mg tablet 10 mg PO QHS tab 08/19/19 [History Last Taken 04/07/21] oxycodone 10 mg tablet 10 mg PO TID PRN PRN 08/19/19 [History Last Taken 04/07/21] baclofen 5 mg tablet 7.5 mg PO BID tab 11/16/19 [History Last Taken 04/08/21] gabapentin 100 mg capsule 100 mg PO BID 11/16/19 [History Last Taken 04/08/21] gabapentin 300 mg capsule 300 mg PO QHS cap 11/16/19 [History Last Taken 04/07/21] levothyroxine [Euthyrox] 75 mcg PO MOTUWETHFRSA 07/11/20 [History Last Taken 04/08/21] levothyroxine [Euthyrox] 150 mcg PO PLASCENCIA 07/11/20 [History Last Taken 04/07/21] melatonin 20 mg PO QHS 07/11/20 [History Last Taken 04/07/21] methadone 15 mg PO DAILY 07/11/20 [History Last Taken 04/08/21] polyethylene glycol 3350 17 g PO DAILY PRN PRN 07/11/20 [History Last Taken 04/07/21] bisacodyl [Dulcolax (bisacodyl)] 5 mg PO DAILY PRN PRN 04/08/21 [History Last Taken 04/07/21] carvedilol 3.125 mg PO BID 04/08/21 [History Last Taken 04/08/21] potassium chloride 20 meq PO TID 04/08/21 [History Last Taken 04/08/21] promethazine 12.5 mg PO Q6H PRN #14 tab 05/24/21 [Rx Last Taken Unknown] cephalexin 500 mg PO Q6H 06/01/21 [History Last Taken Unknown] fluconazole [Diflucan] 400 mg PO DAILY 06/01/21 [History Last Taken Unknown] Allergy/AdvReac Type Severity Reaction Status Date / Time levofloxacin [From Levaquin] AdvReac Vomiting Verified 06/01/21 11:46 ondansetron [From Zofran] AdvReac HEADACHE, Verified 06/01/21 11:46 SEVERE Family History Mother Lung cancer Father Lung cancer Surgical History History of cholecystectomy History of left heart catheterization (01/31/19) History of right nephrectomy (03/30/13) History of spinal surgery (2018) History of surgery History of vascular access device Social History household members: spouse housing: house Smoking Status: Never smoker alcohol intake: never substance use type: does not use Physical Exam Const alert, oriented x3 and no apparent distress General Appearance: cooperative Exam Limitations: no limitations HEENT normocephalic and head/scalp atraumatic Eyes PERRL and EOMs intact bilaterally Neck supple and nodes Resp normal air movement and clear to auscultation bilaterally Cardio regular rate and regular rhythm GI soft to palpation, non-tender and non-distended Skin Skin Narrative: wound vac in place Neuro CN's II-XII intact bilaterally Neuro Narrative: paraplegia Medical Records Data Medical Nutrition Assessment Dietitian: Malnutrition Criteria Met Start: 06/02/21 12:41 Freq: Status: Active Protocol: Document 06/04/21 09:29 AG (Rec: 06/04/21 10:45 [id number]) Nutrition Malnutrition Evidence of Malnutrition Exists Yes Malnutrition (severe): Chronic Evidenced By Suboptimal Energy Intake ( Severe),Weight Loss (Severe), Physical Changes (Severe) Clinical Problem Chronic Disease or Condition Related Malnutrition Etiology chronic, severe malnutrition r /t inadequate energy intake w/ increased nutrient needs d/t metastatic disease Signs/Symptoms as evidenced by estimated PO intake meeting <75% of estimated energy needs >3 months; unintentional wt loss of 34#/21% x 10 months; severe muscle wasting/fat loss per physical exam Status Active Problem Recommendation Dietitian Recommendations/Changes Continue regular diet as tolerated. Will adjust ONS to: Ensure Enlive [place] 240mL TID w/ meals, Fruit Punch Charan BID, [place] Magic Cup BID Lab / Micro Data Result Diagrams: 06/05/21 03:40 06/05/21 03:40 Labs: Laboratory Results - last 24 hr 06/04/21 17:25: Vancomycin Trough 18.3 H 06/05/21 03:40: WBC 7.2, RBC 3.28 L, Hgb 8.8 L, Hct 27.4 L, MCV 83.5, MCH 26.8 L, MCHC 32.1, RDW Std Deviation 55.7 H, RDW Coeff of Deborah 18.3 H, Plt Count 307, MPV 9.1, Immature Gran % (Auto) 1.400 H, Neut % (Auto) 59.8, Lymph % (Auto) 24.0, [place] % (Auto) 6.7, Eos % (Auto) 7.1 H, Baso % (Auto) 1.0, Absolute Neuts (auto) 4.3, Absolute Lymphs (auto) 1.72, Nucleated RBC % 0 06/05/21 03:40: Sodium 141, Potassium 4.2, Chloride 116 H, Carbon Dioxide 23.0, Anion Gap 2 L, BUN 7, Creatinine 0.25 L, Estim Creat Clear Calc 224.19, Est GFR (MDRD) Af Amer 365, Est GFR (MDRD) Non-Af 301, BUN/Creatinine Ratio 28.1 H, Glucose 75, Calcium 7.0 L, Total Bilirubin 0.30, AST 16, ALT 7 L, Alkaline Phosphatase 132 H, Total Protein 3.6 L, Albumin 0.9 L, Globulin 2.7, Albumin/Globulin Ratio 0.3 L Micro: Microbiology 06/03/21 11:00 Wound - Sacral Gram Stain - Final 06/03/21 11:00 Wound - Sacral Wound Culture - Preliminary Gram positive merly Gram Positive Cocci 06/01/21 14:35 Urine Catheter - Catheter Urine Culture - Final Yeast, not Jessica albicans 06/01/21 14:00 Blood Culture (Wb) - Anticubital Left Blood Culture - Preliminary No growth in 48 hours. 06/01/21 12:15 Blood Culture (Wb) - Port Blood Culture - Preliminary No growth in 48 hours.
[2021-06-05] MEDS: Potassium Chloride Oral Tablet 20 MEQ PO ×2 (13:26→17:00)
--- NOTE | 2021-06-05 14:17 | CASEMGMT ---
SHERRON MADRIGAL NOTE: Call received from [facility]. They are unable to accept pt back to [facility], as they feel [facility] is not an appropriate level of care for pt. Per [facility] nurse, they feel pt needs a higher level of care such as an LTAC in order for wounds to heal. Nurse also states they have broached this topic w/pt and her recently. Isael GARCIA RN CM
[2021-06-05] MEDS: proCHLORPERazine 10 MG/2 ML Vial 5 MG IV (23:31)
[2021-06-05] MEDS: 0.9% Saline Lock 10 ML Syringe IV (23:40)
[2021-06-05] MEDS: Temazepam 15 MG Capsule 30 MG PO (23:46)
[2021-06-06] VITALS (15 sets, daily range): BP systolic 89–128; BP diastolic 57–75; PULSE 70–99; RESP 12–16; TEMP 36.4–37.6; O2SAT 95–100
[2021-06-06] MEDS: Levothyroxine 75 MCG Tablet PO (05:34)
[2021-06-06] MEDS: Piperacil/Tazobactam 3.375 GM/50 ML ML IV (05:34)
[2021-06-06] MEDS: Vancomycin IV 500 MG/100 ML BAG 100 MG IV ×2 (05:35→17:07)
[2021-06-06 07:17] LABS: Absolute Lymphocyte Count 1.96 X10^3/uL (0.83-4.51); Absolute Neutrophil Count 3.8 X10^3/uL (2.0-7.7); Basophil# 0.07 X10^3/uL; Eosinophil# 0.51 X10^3/uL; Eosinophils% 7.3 % (0-5); Hematocrit 28.7 % (37-47); Hemoglobin 9.1 g/dL (12.0-15.0); Lymphocyte # 1.96 X10^3/ul (0.83-4.51); Lymphocyte % 28.2 % (19-41); Mean Corp Hgb Conc 31.7 g/dL (32-36); Mean Corpuscular Hgb 26.8 pg (27.0-32.0); Mean Corpuscular Volume 84.4 fL (81-99); Mean Platelet Vol. 9.2 fl (6.2-12.0); Monocyte# 0.47 X10^3/uL; Monocyte% 6.8 % (0-10); NRBC Flagged by Analyzer 0 % (0-5); Neutrophil # 3.82 X10^3/uL (2.7-7.7); Neutrophil % 54.8 % (47-70); Platelet Count 324 K/mm3 (150-450); RBC Distribution Width CV 18.4 % (11.6-14.6); RBC Distribution Width SD 56.5 fl (35.1-43.9)
[2021-06-06 08:03] LABS: ALB/GLOB Ratio 0.3 RATIO (0.9-2.4); AST(SGOT) 8 U/L (15-37); Alanine Aminotransfer ALT/SGPT < 6 U/L (13-56); Albumin, Serum 0.9 g/dL (3.2-5.0); Alkaline Phosphatase 137 U/L (45-117); Anion Gap 5 (5-15); BUN 6 mg/dL (7-18); BUN/Creat Ratio 20.8 RATIO (10-20); Calcium,Total 6.8 mg/dL (8.5-10.1); Chloride 115 mmol/L (98-107); Creatinine, Serum 0.29 mg/dL (0.55-1.02); EST Glomerular Filtration Rate 254 mL/min (>60); Est Glom Filt Rate - Afr Amer 307 mL/min (>60); Globulin 2.8 g/dL (2.2-4.2); Glucose 88 mg/dL (74-106); Potassium 3.5 mmol/L (3.5-5.1); Protein, Total 3.7 g/dL (6.4-8.2); Sodium Level 141 mmol/L (136-145)
--- NOTE | 2021-06-06 09:15 | CASEMGMT ---
Addendum entered by Maida Galvan 06/06/21 13:32: Call from Andie at [facility] and she is updated on all, voices understanding. Bed codes faxed per request. Andie states they will start authorization. CM to follow. Marianela [facility]U CM Original Note: This RN ROHAN received call from Andie at [facility], stating they received referral for pt yesterday, sent by Cheryl [facility] CM. Per Andie, pt would meet criteria for LTACH but she is requesting wound info and culture results. This RN CM to room to discuss with pt and pt is agreeable to for info to be sent to LTACH and insurance(by LTACH) to see if they would approve LTACH at this time but pt is tearful and would like to discuss with prior to making final decision on LTACH. Further clinicals faxed to [facility] in [place]. CM to follow. Marianela [facility]U CM
[2021-06-06] MEDS: Potassium Chloride Oral Tablet 20 MEQ PO ×3 (09:40→17:01)
[2021-06-06] MEDS: Gabapentin 100 MG Capsule PO (09:41)
[2021-06-06] MEDS: Baclofen 10 MG Tablet 7.5 MG PO ×2 (09:41→22:38)
[2021-06-06] MEDS: APIXABAN 5 MG TABLET PO ×2 (09:43→22:39)
[2021-06-06] MEDS: Midodrine HCl 5 MG Tablet 10 MG PO ×3 (09:49→17:01)
--- NOTE | 2021-06-06 10:07 | PCM.PN.ID ---
Physical Exam Narrative Feeling a little better, out of icu. No fever. Const alert General Appearance: cooperative Resp normal air movement and clear to auscultation bilaterally Cardio regular rate and regular rhythm GI soft to palpation, non-tender and non-distended Extremity no clubbing, cyanosis or edema ID ID: Route of nutrition/ use of supplements: [] Nutritional Intake: [] IV Site: [] Blount Catheter: [] Assessment & Plan Assessment/Plan (1) Osteomyelitis of pelvis: PLAN: Here with septic shock, improved. On empiric vanc/zosyn, bcx neg, wound cx with enterococcus and corynbacteria so far. Follows at wound center, reviewed photos. Did have single tissue cx 2/2 with aspergillus. Other fungal cx x2 with c.parapsilosis at that same time. Has been on fluconazole. Last CT abd/pelvis was 05/24. Will follow
[2021-06-06] MEDS: Acyclovir 200 MG Capsule 400 MG PO (10:28)
[2021-06-06] MEDS: Fluconazole 100 MG Tablet 400 MG PO (10:29)
--- NOTE | 2021-06-06 15:20 | WOUNDNOTE ---
In to change bilateral ischial/sacral wound. patient had another BM. wounds cleansed thoroughly with soap and water. applied a NS wet to dry dressing and plan to reapply the wound VAC tomorrow if patient does not go to the LTAC. Pt states she hasn't talked to her yet, but feels she probably should go for a little while. Pt tolerated dressing change well.
--- NOTE | 2021-06-06 16:28 | PCM.PN.HOSP ---
Objective Data Objective Data Vital Signs: Vital Signs Temp Pulse Resp BP Pulse Ox 98.3 F 75 16 103/59 L 98 06/06/21 13:48 06/06/21 13:48 06/06/21 13:48 06/06/21 13:48 06/06/21 13:48 Oxygen Flow Rate (L/min) 2 Oxygen Delivery Method Room Air Weight: 60 kg Body Mass Index (BMI) 19.2 Intake & Output: Intake and Output for Last 24 Hours 06/04/21 06/05/21 06/06/21 23:59 23:59 23:59 Intake Total 4400.13 / 4400.13 1604.33 / 1704.33 520 / 520 Output Total 875 / 1175 1300 / 1450 525 / 525 Balance 3525.13 / 3225.13 304.33 / 254.33 -5 / -5 Medical Nutrition Assessment Dietitian: Malnutrition Criteria Met Start: 06/02/21 12:41 Freq: Status: Active Protocol: Document 06/04/21 09:29 AG (Rec: 06/04/21 10:45 [id number]) Nutrition Malnutrition Evidence of Malnutrition Exists Yes Malnutrition (severe): Chronic Evidenced By Suboptimal Energy Intake ( Severe),Weight Loss (Severe), Physical Changes (Severe) Clinical Problem Chronic Disease or Condition Related Malnutrition Etiology chronic, severe malnutrition r /t inadequate energy intake w/ increased nutrient needs d/t metastatic disease Signs/Symptoms as evidenced by estimated PO intake meeting <75% of estimated energy needs >3 months; unintentional wt loss of 34#/21% x 10 months; severe muscle wasting/fat loss per physical exam Status Active Problem Recommendation Dietitian Recommendations/Changes Continue regular diet as tolerated. Will adjust ONS to: Ensure Enlive [place] 240mL TID w/ meals, Fruit Punch Charan BID, [place] Magic Cup BID Lab / Micro Data Result Diagrams: 06/06/21 06:50 06/06/21 06:50 Labs: Laboratory Results - last 24 hr 06/06/21 06:50: WBC 7.0, RBC 3.40 L, Hgb 9.1 L, Hct 28.7 L, MCV 84.4, MCH 26.8 L, MCHC 31.7 L, RDW Std Deviation 56.5 H, RDW Coeff of Deborah 18.4 H, Plt Count 324, MPV 9.2, Immature Gran % (Auto) 1.900 H, Neut % (Auto) 54.8, Lymph % (Auto) 28.2, [place] % (Auto) 6.8, Eos % (Auto) 7.3 H, Baso % (Auto) 1.0, Absolute Neuts (auto) 3.8, Absolute Lymphs (auto) 1.96, Nucleated RBC % 0 06/06/21 06:50: Sodium 141, Potassium 3.5, Chloride 115 H, Carbon Dioxide 21.0, Anion Gap 5, BUN 6 L, Creatinine 0.29 L, Estim Creat Clear Calc 200.36, Est GFR (MDRD) Af Amer 307, Est GFR (MDRD) Non-Af 254, BUN/Creatinine Ratio 20.8 H, Glucose 88, Calcium 6.8 L, Total Bilirubin 0.20, AST 8 L, ALT < 6 L, Alkaline Phosphatase 137 H, Total Protein 3.7 L, Albumin 0.9 L, Globulin 2.8, Albumin/Globulin Ratio 0.3 L Micro: Microbiology 06/03/21 11:00 Wound - Sacral Gram Stain - Final 06/03/21 11:00 Wound - Sacral Wound Culture - Final Corynebacterium striatum Enterococcus faecium 06/01/21 14:35 Urine Catheter - Catheter Urine Culture - Final Yeast, not Jessica albicans 06/01/21 14:00 Blood Culture (Wb) - Anticubital Left Blood Culture - Preliminary No growth in 48 hours. 06/01/21 12:15 Blood Culture (Wb) - Port Blood Culture - Preliminary No growth in 48 hours.
[2021-06-06] MEDS: Ferrous Sulfate 325 MG Tablet PO (17:00)
--- NOTE | 2021-06-06 17:19 | PN.HOSP_ITS ---
Subjective Subjective Follow-up on septic shock: Patient was seen and examined. No other acute events overnight. Transferred to PCU yesterday. Patient denied any new complains. Objective Data Objective Data Vital Signs: Vital Signs Temp Pulse Resp BP Pulse Ox 98.5 F 80 12 128/75 H 97 06/06/21 16:58 06/06/21 16:58 06/06/21 16:58 06/06/21 16:58 06/06/21 16:58 Oxygen Flow Rate (L/min) 2 Oxygen Delivery Method Room Air Weight: 60 kg Body Mass Index (BMI) 19.2 Intake & Output: Intake and Output for Last 24 Hours 06/04/21 06/05/21 06/06/21 23:59 23:59 23:59 Intake Total 4400.13 / 4400.13 1604.33 / 1704.33 520 / 520 Output Total 875 / 1175 1300 / 1450 525 / 525 Balance 3525.13 / 3225.13 304.33 / 254.33 -5 / -5 Medical Nutrition Assessment Dietitian: Malnutrition Criteria Met Start: 06/02/21 12:41 Freq: Status: Active Protocol: Document 06/04/21 09:29 AG (Rec: 06/04/21 10:45 [id number]) Nutrition Malnutrition Evidence of Malnutrition Exists Yes Malnutrition (severe): Chronic Evidenced By Suboptimal Energy Intake ( Severe),Weight Loss (Severe), Physical Changes (Severe) Clinical Problem Chronic Disease or Condition Related Malnutrition Etiology chronic, severe malnutrition r /t inadequate energy intake w/ increased nutrient needs d/t metastatic disease Signs/Symptoms as evidenced by estimated PO intake meeting <75% of estimated energy needs >3 months; unintentional wt loss of 34#/21% x 10 months; severe muscle wasting/fat loss per physical exam Status Active Problem Recommendation Dietitian Recommendations/Changes Continue regular diet as tolerated. Will adjust ONS to: Ensure Enlive [place] 240mL TID w/ meals, Fruit Punch Charan BID, [place] Magic Cup BID Lab / Micro Data Result Diagrams: 06/06/21 06:50 06/06/21 06:50 Labs: Laboratory Results - last 24 hr 06/06/21 06:50: WBC 7.0, RBC 3.40 L, Hgb 9.1 L, Hct 28.7 L, MCV 84.4, MCH 26.8 L , MCHC 31.7 L, RDW Std Deviation 56.5 H, RDW Coeff of Deborah 18.4 H, Plt Count 324, MPV 9.2, Immature Gran % (Auto) 1.900 H, Neut % (Auto) 54.8, Lymph % (Auto) 28.2, [place] % (Auto) 6.8, Eos % (Auto) 7.3 H, Baso % (Auto) 1.0, Absolute Neuts (auto) 3.8, Absolute Lymphs (auto) 1.96, Nucleated RBC % 0 06/06/21 06:50: Sodium 141, Potassium 3.5, Chloride 115 H, Carbon Dioxide 21.0, Anion Gap 5, BUN 6 L, Creatinine 0.29 L, Estim Creat Clear Calc 200.36, Est GFR (MDRD) Af Amer 307, Est GFR (MDRD) Non-Af 254, BUN/Creatinine Ratio 20.8 H, Glu cose 88, Calcium 6.8 L, Total Bilirubin 0.20, AST 8 L, ALT < 6 L, Alkaline Phosphatase 137 H, Total Protein 3.7 L, Albumin 0.9 L, Globulin 2.8, Albumi n/Globulin Ratio 0.3 L Micro: Microbiology 06/03/21 11:00 Wound - Sacral Gram Stain - Final 06/03/21 11:00 Wound - Sacral Wound Culture - Final Corynebacterium striatum Enterococcus faecium 06/01/21 14:35 Urine Catheter - Catheter Urine Culture - Final Yeast, not Jessica albicans 06/01/21 14:00 Blood Culture (Wb) - Anticubital Left Blood Culture - Preliminary No growth in 48 hours. 06/01/21 12:15 Blood Culture (Wb) - Port Blood Culture - Preliminary No growth in 48 hours. Physical Exam Narrative Physical exam: General: Alert, Oriented x3, Cooperative, No apparent distress, appears frail HEENT: Atraumatic Oral: Moist Mucosa Neck: Supple Lungs: Diminished to auscultation Cardiovascular: HS I+II, regular, no murmurs Abdomen: Bowel Sounds Present, Soft, Non Tender Extremities: No edema Neurological: Bilateral lower extremity weakness with power in the lower extremity of 0/5, in offloading boots Assessment & Plan Assessment/Plan (1) Weakness: (2) Acute hypotension: (3) Acute dehydration: PLAN: 1. Septic shock likely secondary to acute UTI/probable infected sacral decubitus ulcer Off Levophed; continue on oral Midodrine Urine cultures are growing probable yeast-like organisms, blood cultures are pending Continue on empiric IV Zosyn and vancomycin; ID consulted Patient is already on Diflucan Continue methadone 5mg QHS 2. Anemia, mixed; iron deficiency anemia/anemia of chronic disease Status post 1 unit of packed RBC, hemoglobin is stable at 8.8 Continue on oral iron. Continue to trend 3. Hypokalemia, replaced 4. Hypercalcemia likely secondary to bony mets, improved Repeat blood work in am 5. Chronic sacral decubitus ulcers, POA Wound care consulted; wound cultures are pending Continue on IV Zosyn and vancomycin 6. 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 Hypertension, now hypotensive, blood pressure meds on hold Will resume cautiously 8. Hypothyroidism, continue Synthroid 9. DVT prophylaxis?Eliquis Charges/Coding Visit Charges Inpatient E&M: 01530 Subs Hosp L2
[2021-06-06] MEDS: proCHLORPERazine 10 MG/2 ML Vial 5 MG IV (19:37)
[2021-06-06] MEDS: Temazepam 15 MG Capsule 30 MG PO (22:39)
[2021-06-07] VITALS (7 sets, daily range): BP systolic 111–122; BP diastolic 73–75; PULSE 62–84; RESP 16; TEMP 36.4–36.8; O2SAT 98–100
[2021-06-07] MEDS: Vancomycin IV 500 MG/100 ML BAG 100 MG IV (05:49)
[2021-06-07] MEDS: Levothyroxine 75 MCG Tablet PO (05:50)
[2021-06-07 05:51] LABS: Absolute Lymphocyte Count 2.35 X10^3/uL (0.83-4.51); Absolute Neutrophil Count 3.7 X10^3/uL (2.0-7.7); Basophil# 0.07 X10^3/uL; Basophil% 0.9 % (0-1); Eosinophil# 0.71 X10^3/uL; Eosinophils% 9.5 % (0-5); Hematocrit 29.4 % (37-47); Hemoglobin 9.3 g/dL (12.0-15.0); Lymphocyte # 2.35 X10^3/ul (0.83-4.51); Lymphocyte % 31.5 % (19-41); Mean Corp Hgb Conc 31.6 g/dL (32-36); Mean Corpuscular Hgb 26.4 pg (27.0-32.0); Mean Corpuscular Volume 83.5 fL (81-99); Mean Platelet Vol. 9.1 fl (6.2-12.0); Monocyte# 0.54 X10^3/uL; Monocyte% 7.2 % (0-10); NRBC Flagged by Analyzer 0 % (0-5); Neutrophil # 3.69 X10^3/uL (2.7-7.7); Neutrophil % 49.7 % (47-70); Platelet Count 412 K/mm3 (150-450); RBC Distribution Width CV 18.6 % (11.6-14.6); RBC Distribution Width SD 56.1 fl (35.1-43.9); Red Blood Count 3.52 M/mm3 (4.2-5.4); White Blood Count 7.5 K/mm3 (4.4-11.0)
[2021-06-07 06:15] LABS: ALB/GLOB Ratio 0.3 RATIO (0.9-2.4); AST(SGOT) 8 U/L (15-37); Alanine Aminotransfer ALT/SGPT 8 U/L (13-56); Alkaline Phosphatase 149 U/L (45-117); Anion Gap 3 (5-15); BUN 4 mg/dL (7-18); BUN/Creat Ratio 17.2 RATIO (10-20); Calcium,Total 6.8 mg/dL (8.5-10.1); Chloride 117 mmol/L (98-107); Creatinine, Serum 0.23 mg/dL (0.55-1.02); EST Glomerular Filtration Rate 327 mL/min (>60); Est Glom Filt Rate - Afr Amer 396 mL/min (>60); Estimated Creatinine Clearance 252.63 ml/min; Globulin 3.1 g/dL (2.2-4.2); Glucose 81 mg/dL (74-106); Potassium 4.5 mmol/L (3.5-5.1); Protein, Total 4.1 g/dL (6.4-8.2); Sodium Level 142 mmol/L (136-145)
[2021-06-07 06:35] LABS: Vancomycin, Trough Level 17.5 ug/mL (5.0-15.0)
--- NOTE | 2021-06-07 06:40 | PCM.RX.CS ---
Consult Pharmacy has been consulted to manage selected antiobiotic: Vancomycin Type of Consult: Follow-up Suspected Infection: Sepsis Prior Doses of Antibiotics Received/Current Regimen: Medications Vancomycin HCl () 500 mg in 100 mls @ 100 mls/hr IV Q12H ERNESTO Last Admin: 06/07/21 05:49 Dose: 100 mls/hr Documented by: Labs: Sodium 142 mmol/L (136-145) 06/07/21 05:40 Potassium 4.5 mmol/L (3.5-5.1) 06/07/21 05:40 Chloride 117 mmol/L (98-107) H 06/07/21 05:40 Carbon Dioxide 22.0 mmol/L (21.0-32.0) 06/07/21 05:40 Anion Gap 3 (5-15) L 06/07/21 05:40 BUN 4 mg/dL (7-18) L 06/07/21 05:40 Creatinine 0.23 mg/dL (0.55-1.02) L 06/07/21 05:40 Est GFR (MDRD) Af Amer 396 mL/min (>60) 06/07/21 05:40 Est GFR (MDRD) Non-Af 327 mL/min (>60) 06/07/21 05:40 BUN/Creatinine Ratio 17.2 RATIO (10-20) 06/07/21 05:40 Glucose 81 mg/dL (74-106) 06/07/21 05:40 Vancomycin Trough 17.5 ug/mL (5.0-15.0) H 06/07/21 05:40 Microbiology: Microbiology 06/03/21 11:00 Wound - Sacral Gram Stain - Final 06/03/21 11:00 Wound - Sacral Wound Culture - Final Corynebacterium striatum Enterococcus faecium 06/01/21 14:35 Urine Catheter - Catheter Urine Culture - Final Yeast, not Jessica albicans 06/01/21 14:00 Blood Culture (Wb) - Anticubital Left Blood Culture - Preliminary No growth in 48 hours. 06/01/21 12:15 Blood Culture (Wb) - Port Blood Culture - Preliminary No growth in 48 hours. Weight used for dosin.6 kg Estimated Creatinine Clearance: 252 Goal Trough: 15-20 mcg/mL Pharmacy Plan for Drug Dosing: Vancomycin trough level of 17.5 was right in the target range of 15-20. Will continue same dosing and re-draw a trough in 4 days. Pharmacy Service will continue to monitor and adjust dosing as required. Follow-Up Labs: Trough Vancomycin Labs to be done on [date and time ordered]: 06/11/21 @3094
[2021-06-07] MEDS: Baclofen 10 MG Tablet 7.5 MG PO (09:56)
[2021-06-07] MEDS: Acyclovir 200 MG Capsule 400 MG PO (09:56)
[2021-06-07] MEDS: Midodrine HCl 5 MG Tablet 10 MG PO ×3 (09:57→16:22)
[2021-06-07] MEDS: Potassium Chloride Oral Tablet 20 MEQ PO ×3 (09:57→16:22)
[2021-06-07] MEDS: APIXABAN 5 MG TABLET PO (09:58)
[2021-06-07] MEDS: Gabapentin 100 MG Capsule PO (09:58)
[2021-06-07] MEDS: Fluconazole 100 MG Tablet 400 MG PO (09:58)
[2021-06-07] MEDS: Ferrous Sulfate 325 MG Tablet PO ×2 (10:01→16:20)
--- NOTE | 2021-06-07 11:34 | CASEMGMT ---
Addendum entered by Maida Galvan 06/07/21 14:58: Andie from [facility] is here to see pt and D/C/transfer summary faxed to [facility] floor and [facility] provided with number to call report. Toñito, U corporate legal secretary, arranging transport. [facility] CM Addendum entered by Maida Galvan 06/07/21 13:22: Call from Andie at [facility] and she states insurance has approved LTACH for pt at this time. Dr. Saavedra updated, voices understanding. Pt is updated and Andie is on way to [facility] to get consents signed. Pt is requesting someone to call to explain LTACH and this RN CM will inform Andie as she is the most knowledgeable. Pt is aware she will be transferring today and that transport will be set up. navin Infante RN, updated as well, voices understanding. [facility] CM Original Note: Updated clinicals requested from [facility] and faxed at this time. [facility] CM
--- NOTE | 2021-06-07 12:08 | PCM.PN.ID ---
Physical Exam Narrative Feeling better, no fever, no n/v. Const alert and no apparent distress General Appearance: cooperative Resp normal air movement and clear to auscultation bilaterally Cardio regular rate and regular rhythm GI soft to palpation, non-tender and non-distended Skin Skin Narrative: wounds dressed ID ID: Route of nutrition/ use of supplements: [] Nutritional Intake: [] IV Site: [] Blount Catheter: [] Assessment & Plan Assessment/Plan (1) Osteomyelitis of pelvis: PLAN: Here with septic shock, improved. On empiric vanc/zosyn, bcx neg, wound cx with enterococcus and corynbacteria so far. Follows at wound center, reviewed photos. Did have single tissue cx 2/2 with aspergillus. Other fungal cx x2 with c.parapsilosis at that same time. Has been on fluconazole, will continue for [address] abd/pelvis was 05/24. Completed 6 weeks of abx for osteo as outpt prior to admit. Wounds improved overall. Will stop vanc. Plan on stopping zosyn when she goes to [facility]. Will follow, d/w disease case manager rn
--- NOTE | 2021-06-07 13:22 | DCINST_ITS ---
Discharge Instructions Diet Discharge Diet: No restrictions Follow Up Care Test Results: Test results from this visit will be discussed in further detail at your follow-up appointment, if applicable. Discharge Plan Admission Admit Date/Time: 06/01/21 15:13 Primary Reason for Your Visit: septic shock Attending Provider: Dara Higuera Primary Care Provider: Aaron Chand Consulting Providers: Jason Tyson ; Sly Harper ; Gurdeep Killian ; Miriam Betts ADULT PAROLE OFFICER Instructions Additional Instructions / Restrictions: Patient's home Coreg were held on admission on account of hypotension. Consider resuming when patient blood pressure improved Consider tapering of midodrine when hypotension resolved Discharge Orders/Prescriptions Prescriptions: New fluconazole 100 mg Tablet 400 mg PO DAILY 14 Days Qty: 56 RF: 0 ferrous sulfate [FeroSul] 325 mg (65 mg iron) Tablet 325 mg PO 1200,1700 Qty: 0 RF: 0 methadone 5 mg Tablet 5 mg PO QHS Qty: 0 RF: 0 oxycodone 5 mg Tablet 5 mg PO TID PRN PRN (Reason: Pain Score 1-10) Qty: 0 RF: 0 midodrine 5 mg Tablet 10 mg PO TIDCM Qty: 0 RF: 0 Zosyn in dextrose (iso-osm) 3.375 gram/50 mL piggyback 3.375 g IV Q8H 14 Days Qty: 2362.5 RF: 0 Continued acyclovir 400 mg tablet 400 mg PO DAILY RF: 0 gabapentin 100 mg capsule 100 mg PO BID RF: 0 baclofen 5 mg tablet 7.5 mg PO BID RF: 0 temazepam 30 MG capsule 30 mg PO QHS RF: 0 apixaban 5 MG tablet 5 mg PO BID RF: 0 Hold Instructions: Resume on 04/14/21. levothyroxine [Euthyrox] 75 mcg tablet 75 mcg PO MOTUWETHFRSA RF: 0 levothyroxine [Euthyrox] 75 mcg tablet 150 mcg PO PLASCENCIA RF: 0 polyethylene glycol 3350 17 gram/dose Powder 17 g PO DAILY PRN PRN (Reason: STOOL) RF: 0 potassium chloride 10 mEq tablet extended release 20 meq PO TID RF: 0 bisacodyl [Dulcolax (bisacodyl)] 5 mg Tablet,Delayed Release (Dr/Ec) 5 mg PO DAILY PRN PRN (Reason: STOOL) RF: 0 fluconazole [Diflucan] 200 mg tablet 400 mg PO DAILY Qty: 0 RF: 0 Discontinued methadone 5 mg tablet 10 mg PO QHS RF: 0 oxycodone 10 mg tablet 10 mg PO TID PRN PRN (Reason: Pain) RF: 0 gabapentin 300 mg capsule 300 mg PO QHS RF: 0 methadone 5 mg tablet 15 mg PO DAILY RF: 0 melatonin 10 mg Tablet 20 mg PO QHS RF: 0 carvedilol 3.125 mg tablet 3.125 mg PO BID RF: 0 promethazine 12.5 mg tablet 12.5 mg PO Q6H PRN (Reason: nausea and vomiting) Qty: 14 RF: 0 cephalexin 500 mg capsule 500 mg PO Q6H RF: 0 Referrals / Follow Up: Aaron Chand MD [Primary Care Provider] - Disposition Discharge Orders: Discharge Patient (Routine); Ordered 06/07/21 Ordered By: Dr. Dara Higuera
--- NOTE | 2021-06-07 13:46 | DS.PCM_ITS ---
Providers Date of Admission: 06/01/21 Date of Discharge: 06/07/21 Primary Care Physician: Dr. Aaron Chand MD Consultations 06/01/21 16:21 Consult: Electronic Repair Troubleshooter / Pulmonary Medicine Routine Consulting Provider: Pulmonary Medicine dalila [place] Reason for Consult: shock, septic vs hypovolemic EMERGENT Consult: No Notified: Yes Date Notified: 06/01/21 Time Notified: 15:17 Method of Notification: Text 06/03/21 06:05 Consult: Onc/Wound/outside installer apprentice Routine Comment: 06/04/21 10:11 Consult: Infectious Disease Routine Consulting Provider: Jason Tyson Reason for Consult: Infected sacral ulcer EMERGENT Consult: No Notified: Yes Date Notified: 06/04/21 Time Notified: 10:11 Method of Notification: Text Reason For Visit: SHOCK Diagnosis Discharge Diagnosis (1) Septic shock: Status: Resolved Code(s): A41.9 - Sepsis, unspecified organism; R65.21 - Severe sepsis with septic shock (2) Severe protein-calorie malnutrition: Status: Acute Code(s): E43 - Unspecified severe protein-calorie malnutrition Medications at Discharge Home Medications temazepam 30 mg PO QHS 12/12/18 apixaban 5 mg PO BID 02/07/19 acyclovir 400 mg tablet 400 mg PO DAILY tab 08/19/19 baclofen 5 mg tablet 7.5 mg PO BID tab 11/16/19 gabapentin 100 mg capsule 100 mg PO BID 11/16/19 levothyroxine [Euthyrox] 75 mcg PO MOTUWETHFRSA 07/11/20 levothyroxine [Euthyrox] 150 mcg PO PLASCENCIA 07/11/20 polyethylene glycol 3350 17 g PO DAILY PRN PRN 07/11/20 bisacodyl [Dulcolax (bisacodyl)] 5 mg PO DAILY PRN PRN 04/08/21 potassium chloride 20 meq PO TID 04/08/21 ferrous sulfate [FeroSul] 325 mg PO 1200,1700 #0 tab 06/07/21 fluconazole 400 mg PO DAILY 14 Days #56 tab 06/07/21 fluconazole [Diflucan] 400 mg PO DAILY #0 tab 06/07/21 methadone 5 mg PO QHS #0 tab 06/07/21 midodrine 10 mg PO TIDCM #0 tab 06/07/21 oxycodone 5 mg PO TID PRN PRN #0 tab 06/07/21 [id number] [Zosyn in dextrose (iso-osm)] 3.375 g IV Q8H 14 Days #2362.5 ml 06/07/21 Hospital Course Operations None Procedures None Summary of Care Provided Minutes Spent on Discharge: 40 Hospital Course: 55-year-old with PMHx of metastatic renal cell CA, paraplegic and bedbound, history of sacral decubitus ulcer/osteomyelitis, on chronic linezolid who comes in with progressive weakness and lethargy. Patient was found to be hypotensive with blood pressure of 68/46. She was admitted to the ICU and managed as septic shock secondary to acute UTI as well as infected sacral decubitus ulcers. Her management was as follows: 1. Septic shock likely secondary to acute UTI/probable infected sacral decubitus ulcer Initially was on Levophed, then weaned off, started and continued on oral Midodrine Urine cultures growing yeast not Jessica albicans, blood cultures were negative Infectious disease as well critical care were consulted. Patient was started on empiric IV Zosyn and vancomycin She was on Diflucan that was continued Patient's antihypertensive medications were discontinued She was discharged off antibiotics No changes to her medications -she was kept only on methadone 5 mg nightly 2. Anemia, mixed; iron deficiency anemia/anemia of chronic disease Patient was transfused 1 unit of packed RBC in this hospital stay She was continued on oral iron, discharging hemoglobin was 9.3 3. Hypokalemia, replaced 4. Hypercalcemia likely secondary to bony mets, improved 5. Chronic sacral decubitus ulcers, POA Wound care consulted in this admission 6. 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 Hypothyroidism, continue Synthroid 8. Severe protein calorie malnutrition, dietitian consulted, was managed on supplements Physical Exam Narrative Physical exam: General: Alert, Oriented x3, Cooperative, No apparent distress, appears frail HEENT: Atraumatic Oral: Moist Mucosa Neck: Supple Lungs: Diminished to auscultation Cardiovascular: HS I+II, regular, no murmurs Abdomen: Bowel Sounds Present, Soft, Non Tender Extremities: No edema Neurological: Bilateral lower extremity weakness with power in the lower e xtremity of 0/5, in offloading boots Medical Records Data Medical Nutrition Assessment Dietitian: Malnutrition Criteria Met Start: 06/02/21 12:41 Freq: Status: Active Protocol: Document 06/04/21 09:29 AG (Rec: 06/04/21 10:45 AG [id number]) Nutrition Malnutrition Evidence of Malnutrition Exists Yes Malnutrition (severe): Chronic Evidenced By Suboptimal Energy Intake ( Severe),Weight Loss (Severe), Physical Changes (Severe) Clinical Problem Chronic Disease or Condition Related Malnutrition Etiology chronic, severe malnutrition r /t inadequate energy intake w/ increased nutrient needs d/t metastatic disease Signs/Symptoms as evidenced by estimated PO intake meeting <75% of estimated energy needs >3 months; unintentional wt loss of 34#/21% x 10 months; severe muscle wasting/fat loss per physical exam Status Active Problem Recommendation Dietitian Recommendations/Changes Continue regular diet as tolerated. Will adjust ONS to: Ensure Enlive [place] 240mL TID w/ meals, Fruit Punch Charan BID, [place] Magic Cup BID Weight / BMI Weight Weight: 63.6 kg Body Mass Index (BMI) 19.2 ABG / Lab / Microbiology Data Result Diagrams: 06/07/21 05:40 06/07/21 05:40 Laboratory: Laboratory Results - last 24 hr 06/07/21 05:40: WBC 7.5, RBC 3.52 L, Hgb 9.3 L, Hct 29.4 L, MCV 83.5, MCH 26.4 L , MCHC 31.6 L, RDW Std Deviation 56.1 H, RDW Coeff of Deborah 18.6 H, Plt Count 412, MPV 9.1, Immature Gran % (Auto) 1.200 H, Neut % (Auto) 49.7, Lymph % (Auto) 31.5, [place] % (Auto) 7.2, Eos % (Auto) 9.5 H, Baso % (Auto) 0.9, Absolute Neuts (auto) 3.7, Absolute Lymphs (auto) 2.35, Nucleated RBC % 0 06/07/21 05:40: Sodium 142, Potassium 4.5, Chloride 117 H, Carbon Dioxide 22.0, Anion Gap 3 L, BUN 4 L, Creatinine 0.23 L, Estim Creat Clear Calc 252.63, Est GFR (MDRD) Af Amer 396, Est GFR (MDRD) Non-Af 327, BUN/Creatinine Ratio 17.2, Glucose 81, Calcium 6.8 L, Total Bilirubin 0.20, AST 8 L, ALT 8 L, Alkaline Phosphatase 149 H, Total Protein 4.1 L, Albumin 1.0 L, Globulin 3.1, Albumin/Globulin Ratio 0.3 L 06/07/21 05:40: Vancomycin Trough 17.5 H Microbiology: Microbiology 06/03/21 11:00 Wound - Sacral Gram Stain - Final 06/03/21 11:00 Wound - Sacral Wound Culture - Final Corynebacterium striatum Enterococcus faecium 06/01/21 14:35 Urine Catheter - Catheter Urine Culture - Final Yeast, not Jessica albicans 06/01/21 14:00 Blood Culture (Wb) - Anticubital Left Blood Culture - Preliminary No growth in 48 hours. 06/01/21 12:15 Blood Culture (Wb) - Port Blood Culture - Preliminary No growth in 48 hours. D/C Instructions Discharge Diet: No restrictions Meaningful Use Info Meaningful Use Diagnoses (Choose all that apply): None applicable Discharge Plan Admission Admit Date/Time: 06/01/21 15:13 Primary Reason for Your Visit: septic shock Attending Provider: Dara Higuera Primary Care Provider: Aaron Chand Consulting Providers: Jason Tyson ; Sly Harper ; Gurdeep Killian ; Miriam Betts MACHINE CLOTH TRIMMER Instructions Additional Instructions / Restrictions: Patient's home Coreg were held on admission on account of hypotension. Consider resuming when patient blood pressure improved Consider tapering of midodrine when hypotension resolved Discharge Orders/Prescriptions Prescriptions: New fluconazole 100 mg Tablet 400 mg PO DAILY 14 Days Qty: 56 RF: 0 ferrous sulfate [FeroSul] 325 mg (65 mg iron) Tablet 325 mg PO 1200,1700 Qty: 0 RF: 0 methadone 5 mg Tablet 5 mg PO QHS Qty: 0 RF: 0 oxycodone 5 mg Tablet 5 mg PO TID PRN PRN (Reason: Pain Score 1-10) Qty: 0 RF: 0 midodrine 5 mg Tablet 10 mg PO TIDCM Qty: 0 RF: 0 Zosyn in dextrose (iso-osm) 3.375 gram/50 mL piggyback 3.375 g IV Q8H 14 Days Qty: 2362.5 RF: 0 Continued acyclovir 400 mg tablet 400 mg PO DAILY RF: 0 gabapentin 100 mg capsule 100 mg PO BID RF: 0 baclofen 5 mg tablet 7.5 mg PO BID RF: 0 temazepam 30 MG capsule 30 mg PO QHS RF: 0 apixaban 5 MG tablet 5 mg PO BID RF: 0 Hold Instructions: Resume on 04/14/21. levothyroxine [Euthyrox] 75 mcg tablet 75 mcg PO MOTUWETHFRSA RF: 0 levothyroxine [Euthyrox] 75 mcg tablet 150 mcg PO PLASCENCIA RF: 0 polyethylene glycol 3350 17 gram/dose Powder 17 g PO DAILY PRN PRN (Reason: STOOL) RF: 0 potassium chloride 10 mEq tablet extended release 20 meq PO TID RF: 0 bisacodyl [Dulcolax (bisacodyl)] 5 mg Tablet,Delayed Release (Dr/Ec) 5 mg PO DAILY PRN PRN (Reason: STOOL) RF: 0 fluconazole [Diflucan] 200 mg tablet 400 mg PO DAILY Qty: 0 RF: 0 Discontinued methadone 5 mg tablet 10 mg PO QHS RF: 0 oxycodone 10 mg tablet 10 mg PO TID PRN PRN (Reason: Pain) RF: 0 gabapentin 300 mg capsule 300 mg PO QHS RF: 0 methadone 5 mg tablet 15 mg PO DAILY RF: 0 melatonin 10 mg Tablet 20 mg PO QHS RF: 0 carvedilol 3.125 mg tablet 3.125 mg PO BID RF: 0 promethazine 12.5 mg tablet 12.5 mg PO Q6H PRN (Reason: nausea and vomiting) Qty: 14 RF: 0 cephalexin 500 mg capsule 500 mg PO Q6H RF: 0 Referrals / Follow Up: Aaron Chand MD [Primary Care Provider] - Disposition Disposition (needs filled in before D/C Order can be placed): Assisted Acute Care Charges/Coding Visit Charges Inpatient E&M: 53617 Disch Hosp
--- NOTE | 2021-06-07 13:53 | TREXTCAR_ITS ---
Diet 06/02/21 10:29 Diet: Regular - General Type of Dietary Supplement:: Ensure Enlive-strawberry Is pt able to select menu?: Yes Diet Comments: fruit punch Charan w/ B&D; jefferson magic cup w/ L&D Routine Orders/Code Status Routine Lab Work: CBC (within 3 days) and BMP (within 3 days) Code Status: Full Code Wound(s) Buttocks/hip: Wound Type: Pressure Injury left ischium/sacrum: Wound Type: Pressure Injury Dressing Change: Wet to Dry Dressing right ischium: Wound Type: Pressure Injury Dressing Change: Wet to Dry Dressing left popliteal (posterior knee): Wound Type: wound (unknown etiology) Dressing Change: AntiMicrobial (Aquacel AG, etc) Therapies Weight Bearing: Weight bearing as tolerated Physical Therapy: Eval and Treat Occupational Therapy: Eval and Treat Problem/Diagnosis (1) Osteomyelitis of pelvis: Status: Acute Allergies/Procedures Done in Hospital Allergies levofloxacin [From Levaquin] Adverse Reaction (Verified 06/01/21 11:46) Vomiting ondansetron [From Zofran] Adverse Reaction (Verified 06/01/21 11:46) HEADACHE, SEVERE Procedures: None Type of Care/Length of Stay Estimated LOS: Convalescent Care Less Than 30 days Type of Care Needed: LTAC Rehab Potential: Fair Prognosis: Fair Additional Orders/Day of Discharge Day of Discharge: 06/07/21 Dietary and Speech Recommendations Dietitian Recommendations/Changes: Continue regular diet as tolerated. Will adjust ONS to: Ensure Enlive [place] 240mL TID w/ meals, Fruit Punch Charan BID, [place] Magic Cup BID Discharge Plan Admission Admit Date/Time: 06/01/21 15:13 Primary Reason for Your Visit: septic shock Attending Provider: Dara Higuera Primary Care Provider: Aaron Chand Consulting Providers: Jason Tyson ; Sly Harper ; Gurdeep Killian ; Miriam Betts SUPERINTENDENT PRODUCTION Instructions Additional Instructions / Restrictions: Patient's home Coreg were held on admission on account of hypotension. Consider resuming when patient blood pressure improved Consider tapering of midodrine when hypotension resolved Discharge Orders/Prescriptions Prescriptions: New fluconazole 100 mg Tablet 400 mg PO DAILY 14 Days Qty: 56 RF: 0 ferrous sulfate [FeroSul] 325 mg (65 mg iron) Tablet 325 mg PO 1200,1700 Qty: 0 RF: 0 methadone 5 mg Tablet 5 mg PO QHS Qty: 0 RF: 0 oxycodone 5 mg Tablet 5 mg PO TID PRN PRN (Reason: Pain Score 1-10) Qty: 0 RF: 0 midodrine 5 mg Tablet 10 mg PO TIDCM Qty: 0 RF: 0 Zosyn in dextrose (iso-osm) 3.375 gram/50 mL piggyback 3.375 g IV Q8H 14 Days Qty: 2362.5 RF: 0 Continued acyclovir 400 mg tablet 400 mg PO DAILY RF: 0 gabapentin 100 mg capsule 100 mg PO BID RF: 0 baclofen 5 mg tablet 7.5 mg PO BID RF: 0 temazepam 30 MG capsule 30 mg PO QHS RF: 0 apixaban 5 MG tablet 5 mg PO BID RF: 0 Hold Instructions: Resume on 04/14/21. levothyroxine [Euthyrox] 75 mcg tablet 75 mcg PO MOTUWETHFRSA RF: 0 levothyroxine [Euthyrox] 75 mcg tablet 150 mcg PO PLASCENCIA RF: 0 polyethylene glycol 3350 17 gram/dose Powder 17 g PO DAILY PRN PRN (Reason: STOOL) RF: 0 potassium chloride 10 mEq tablet extended release 20 meq PO TID RF: 0 bisacodyl [Dulcolax (bisacodyl)] 5 mg Tablet,Delayed Release (Dr/Ec) 5 mg PO DAILY PRN PRN (Reason: STOOL) RF: 0 fluconazole [Diflucan] 200 mg tablet 400 mg PO DAILY Qty: 0 RF: 0 Discontinued methadone 5 mg tablet 10 mg PO QHS RF: 0 oxycodone 10 mg tablet 10 mg PO TID PRN PRN (Reason: Pain) RF: 0 gabapentin 300 mg capsule 300 mg PO QHS RF: 0 methadone 5 mg tablet 15 mg PO DAILY RF: 0 melatonin 10 mg Tablet 20 mg PO QHS RF: 0 carvedilol 3.125 mg tablet 3.125 mg PO BID RF: 0 promethazine 12.5 mg tablet 12.5 mg PO Q6H PRN (Reason: nausea and vomiting) Qty: 14 RF: 0 cephalexin 500 mg capsule 500 mg PO Q6H RF: 0 Referrals / Follow Up: Aaron Chand MD [Primary Care Provider] - Disposition Disposition (needs filled in before D/C Order can be placed): Intermediate Acute Care
[2021-06-07] MEDS: proCHLORPERazine 10 MG/2 ML Vial 5 MG IV (15:47)
[2021-06-07] MEDS: 0.9% Saline Lock 10 ML Syringe IV (15:47)
== END 2021-06-07 17:20 | DRG 871 ==
LOC: ED 15:03 → ICU 15:59 → PCU 06-05 14:47
PROVIDERS: Internal Medicine Critical Care Medicine; Admitting Provider Student in an Organized Health Care Education/Training Program; Emergency Provider Emergency Medicine; PCP Family Medicine; Visit Provider Internal Medicine
DX: A41.9 Sepsis, unspecified organism (principal); R65.21 Severe sepsis with septic shock; E43 Unspecified severe protein-calorie malnutrition; L89.154 Pressure ulcer of sacral region, stage 4; L89.324 Pressure ulcer of left buttock, stage 4; L89.224 Pressure ulcer of left hip, stage 4; C79.51 Secondary malignant neoplasm of bone; I42.8 Other cardiomyopathies; G82.20 Paraplegia, unspecified; C64.9 Malignant neoplasm of unspecified kidney, except renal pelvis; M46.28 Osteomyelitis of vertebra, sacral and sacrococcygeal region; M86.8X8 Other osteomyelitis, other site; N39.0 Urinary tract infection, site not specified; Z68.1 Body mass index [BMI] 19.9 or less, adult; D63.8 Anemia in other chronic diseases classified elsewhere; E11.69 Type 2 diabetes mellitus with other specified complication; E83.52 Hypercalcemia; E03.9 Hypothyroidism, unspecified; D50.0 Iron deficiency anemia secondary to blood loss (chronic); E87.6 Hypokalemia; E86.0 Dehydration; I10 Essential (primary) hypertension; I25.10 Atherosclerotic heart disease of native coronary artery without angina pectoris; B95.2 Enterococcus as the cause of diseases classified elsewhere; K21.9 Gastro-esophageal reflux disease without esophagitis; G89.4 Chronic pain syndrome; Z74.01 Bed confinement status; Z79.01 Long term (current) use of anticoagulants; Z79.899 Other long term (current) drug therapy; Z79.890 Hormone replacement therapy
CPT/HCPCS: 36415; 36591; 80048; 80053; 80202; 81001; 82728; 83540; 83550; 83605; 84484; 85025; 86850; 86900; 86901; 86920; 86922; 87040; 87070; 87077; 87086; 87088; 87186; 87205; 93005; 97110; 97166; 97802; 97803; 99285; J7030; J7050; J7120; P9016; A4216; J3490

== ENCOUNTER 2021-07-01 11:00 | Outpatient (RCR) | payer MEDICARE, SELFPAY ==
[2021-06-07 00:40] VITALS: BP 92/52; PULSE 88; RESP 22; TEMP 36.3
[2021-07-01 11:08] VITALS: BP 93/60; PULSE 99; RESP 20; TEMP 36.3
--- NOTE | 2021-07-01 13:12 | PN.PCM_ITS ---
History of Present Illness Date of Service: 07/01/21 Chief Complaint: Sacral pressure sore, Stage IV, and left ischial pressure sore, Stage IV. History of Wound: 55 year old female with a history of renal cancer and metastasis to the bone presented to the [facility] with a sacral pressure sore and left ischial pressure sore. was admitted on 07/11/20 and discharged on 07/13/20 for sepsis related to an infected decubitus ulcer. She has been a paraplegic for 2.5 years after her back hardware broke. Her Oncologist is Dr. Valiente and she is on Cabometyx. She had a recent hospitalization from 06/01/21 - 06/07/21 for septic shock from UTI/sacral wound. Urine culture from 06/01/21 positive for yeast, not Bari albicans. Sacral wound culture 06/03/21 positive for Corynebacterium striatum and Enterococcus faecium. She was then discharged to an LTAC. She has been home for over a week. Surgery 04/10/21 for 1. Excision right ischial pressure ulcer, osteomyelitis. Stage IV, with partial ostectomy for osteomyelitis. 2. Excision sacral pressure ulcer, stage IV, with partial ostectomy for osteomyelitis. 3. Excision left ischial pressure ulcer, stage IV, with partial ostectomy for osteomyelitis. Pathology from 04/10/21 - Sacral tissue show focal ulceration, acute and chronic inflammation and granulation tissue reaction. Sacral bone show pieces of bone with acute and chronic osteomyelitis and reactive changes. Left ischial tissue show focal ulceration, acute and chronic inflammation, granulation tissue reaction and fat necrosis. Left ischial bone show pieces of bone with acute and chronic osteomyelitis and reactive changes. Right ischial tissue shows focal ulceration with acute and chronic inflammation and fat necrosis. Right ischial bone pieces of bone with acute and chronic osteomyelitis and reactive change. Operative cultures: Right ischial bone positive for Corynebacterium striatum, and Staphylococcus epidermidis. Right ischial tissue positive for Coag Negative Staph, Enterococcus faecalis and Corynebacterium striatum. Left ischial bone had no growth. Left ischial tissue positive for Bari parapsilosis and Staphylococcus epidermidis, Clostridium species and Anaerobic cocci. Sacral bone and tissue positive for Corynebacterium striatum. She was treated while h ospitalized with IV Vancomycin and Zosyn. Upon discharge she has been taking Linezolid and Augmentin. Surgery on 09/19/20 for 1. Excision left ischial pressure sore, Stage IV, with partial ostectomy for osteomyelitis. 2. Excision sacral pressure sore, Stage IV. Discharged 09/26/20. Ulcer to left posterior knee caused by her urine leg bag rubbing against her skin. Her first noticed it as scab. Wound culture obtained 11/19/20 which was positive for Staphylococcus aureus and Corynebacterium striatum and is being treated with Augmentin. She obtained second degree ko on her anterior thighs bilaterally when placing a rice pack that was too hot, they have since healed. Wound care - Dakins 0.25% moistened gauze covered with ABD/super absorber to the Left buttock (sacral and left ischia ulcer combined) ulcer and the right ischial ulcer daily. Iodoform gauze packed into the left posterior knee ulcer, cover with gauze daily. Wound culture of new right ischial ulcer from 04/02/21 done during a nurse visit was positive for Corynebacterium striatum and Enterococcus faecalis. She has not been treated for this at this time. She is being sent to the ED for further evaluation of this ulcer because of the need for possible operative debridement. Wound culture of sacral ulcer 01/07/21 positive for Corynebacterium striatum, Streptococcus mitis/oralis, Enterococcus faecalis, Anaerobic cocci, Actinomyces bovis, Bacteroides caccae, Bacteroides thetaiotaomicron. She was started on Clindamycin and Augmentin along with probiotic to treat the wound culture. Wound culture of left posterior knee 11/19/20 positive for Staphylococcus aureus and Corynebacterium striatum. She has been started on Augmentin. Operative wound cultures: Ischial pressure sore tissue positive for Staphylococcus aureus, Streptococcus group G, Streptococcus mitis/oralis, Anaerobic cocci and Bacteroides pyogenes. Ischial bone culture Staphylococcus aureus, Enterococcus faecalis, Streptococcue mitis/oralis , Anaerobic cocci, and Bacteroides pyogenes. Sacral tissue positive Staphylococcus aureus, Streptococcus mitis/oralis, Anaerobic cocci and Bacteroides pyogenes. Vancomycin IV had to be stopped due elevated liver enzymes. The other IV antibiotics that would be sensitive would cost the patient too much per week and patient doesn't want placed in a facility for IV antibiotics. She decided to start Augmentin po, which will not have as good bone coverage as an IV antibiotics would have. She had been sitting in her wheelchair up to 12 hours a day while her is at work. They have someone come and help her out of bed in the morning and get her into her wheelchair. She has a new cushion on her wheelchair from the past several months. Wound culture was done on 07/24/20. The left ischial pressure sore was positive for Pseudomonas oryzihabitans and MRSE. The sacral pressure sore was positive for E.coli, Entercoccus faecalis, Methicillin resistant Staphylococcus haemolyticus. She was started Doxycycline, Cipro and Augmentin. She was hospitalized 12/27/20 - 01/01/21 for Septic shock and Acute complicated UTI which showed E. coli. She was treated with IV antibiotics while hospitalized and discharged home on Amoxicillin. Today she denies fever, chills at this time but has had them on and off recently. Encourage nutritional supplementation with protein to help the healing process. Progress of Wound: Right ischial ulcer and left buttock/sacral/ischial ulcer are a nice beefy pink into the muscle. There is bone exposure. There is a sharp piece bone in the left ischial ulcer. Her annamaria wound is clear. The right posterior knee ulcer continues to be deep but is stable. Objective Data Objective Data Vital Signs: Vital Signs Temp Pulse Resp BP 97.4 F L 99 20 H 93/60 07/01/21 11:08 07/01/21 11:08 07/01/21 11:08 07/01/21 11:08 Charges/Coding Procedures Integumentary [id number]: [id number] Global Visit Physical Exam Const alert and oriented x3 Constitutional Narrative: She has lost weight since she was last seen in the wound center and was hospitalized. General Appearance: cooperative HEENT normocephalic Resp normal respiratory effort Cardio regular rate Extremity normal capillary refill Skin Wound Narrative: Right ischial ulcer and left buttock/sacral/ischial ulcer are a nice beefy pink into the muscle. There is bone exposure. There is a sharp piece bone in the left ischial ulcer. Her annamaria wound is clear. The right posterior knee ulcer continues to be deep but is stable. Neuro CN's II-XII intact bilaterally Psych Appearance: grossly normal and well kempt Debridement Note Debridement Note Wound debrided: ischial ulcer Laterality: Right Wound Grade/Stage: Stage IV Type of Debridement: Excisional debridement Anesthesia Used: 4% Lidocaine Solution Depth: Down to and including healthy tissue, in the subcutaneous layer and to muscle Percentage of wound debrided: 100 Instrument Used: 7mm curette Tissue Removed: Nonviable tissue and slough into the muscle. Severity: Fat Layer Exposed Amount of bleeding with debridement: Mild Bleeding Controlled with: Pressure Patient tolerated procedure: Patient tolerated procedure well Post-Debridement Measurements and Additional Note: Post-Debridement Measurements/Treatment - Nurse 1 - General Ulcer Assessment Start: 07/01/21 11:08 Freq: Status: Active Protocol: [facility] Activity Type Activity Date Activity User E-Sign Co-Sign Detail Recorded Client Recorded Date Recorded By Document 07/01/21 11:08 DL [id number] 07/01/21 11:22 DL 07/01/21 11:08 WC - Today's Visit Information Type of service Follow-up Visit (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/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 ) Arrival Mode Wheelchair Transfer Assistance None Patient Identification Verified (Name & Yes ) Patient Requires Transmission-Based No Precautions Vital Signs Temperature (97.8 F-99.1 F) 97.4 F L Temperature Source Temporal Pulse Rate (60-100) 99 Pulse Location Monitor Respiratory Rate (12-18) 20 H Respiratory rate source Observation Blood Pressure (90/60-120/80) 93/60 Blood Pressure Mean (mm Hg) 71 Source Monitor History Since Last Visit- (Skip if this is Patient's initial visit) Any new allergies or adverse reactions No Had a fall/change in ADL's that may No increase risk of falls Signs or symptoms of abuse and/or No neglect since last visit Have you been in the hospital since your No last visit? Has dressing in place as prescribed Yes Has compression in place as prescribed N/A Has offloadiing in place as prescribed Yes Experienced any changes in pain level or No management Pain Scale: 0-10 Numeric Is Patient Pain Free? Yes [facility] Nurse 1 - General Ulcer Measurement Start: 07/01/21 11:08 Freq: Status: Active Protocol: Activity Type Activity Date Activity User E-Sign Co-Sign Detail Recorded Client Recorded Date Recorded By Document 07/01/21 11:08 DL [id number] 07/01/21 11:22 DL 07/01/21 11:08 Wound Center Nurse 1 #7- R ISCHIAL -Current Size (cm) - Length 8.4 -Current Size (cm) - Width 4.5 -Current Size (cm) - Depth 7.4 -Total Square Cm 37.80 -Photo Taken Yes -Exudate Amt Medium -Exudate Type Serosanguineous -Wound Margin Distinct, Outline Attached -Granulation Amt Large (67-100%) -Granulation Quality Red -Necrosis Amt Small (1-33%) -Necrotic Tissue Type Eschar -Structure Exposed Bone -Texture (Annamaria-wound Skin Appearance) Scarring -Moisture (Annamaria-wound Skin Appearance) No Abnormality -Color (Annamaria-wound Skin Appearance) No Abnormality -Temperature (Annamaria-wound Skin No Abnormality Appearance) (Pt Warm) -Tenderness on Palpation (Annamaria-wound No Skin Appearance) -Ulcer Cleansing Soap and Water -Foul Odor after Cleansing No #5 L Post Knee -Current Size (cm) - Length 0.4 -Current Size (cm) - Width 0.4 -Current Size (cm) - Depth 2.5 -Total Square Cm 0.16 -Photo Taken Yes -Exudate Amt Medium -Exudate Type Serosanguineous -Wound Margin Distinct, Outline Attached -Granulation Amt Large (67-100%) -Granulation Quality Red -Necrosis Amt None Present (0 %) -Structure Exposed N/A -Texture (Annamaria-wound Skin Appearance) Scarring -Moisture (Annamaria-wound Skin Appearance) No Abnormality -Color (Annamaria-wound Skin Appearance) No Abnormality -Temperature (Annamaria-wound Skin No Abnormality Appearance) (Pt Warm) -Tenderness on Palpation (Annamaria-wound No Skin Appearance) -Ulcer Cleansing Soap and Water -Foul Odor after Cleansing No #4 sacrum/L Ischial -Current Size (cm) - Length 19.2 -Current Size (cm) - Width 7.5 -Current Size (cm) - Depth 1.6 -Total Square Cm 144.00 -Photo Taken Yes -Undermining/Tunneling Starts (O'clock 10 ) -Undermining/Tunneling Ends (O'clock) 11 -Maximum Distance (cm) 4 -Exudate Amt Medium -Exudate Type Serosanguineous -Wound Margin Distinct, Outline Attached -Granulation Amt Large (67-100%) -Granulation Quality Red -Necrosis Amt Small (1-33%) -Necrotic Tissue Type Adherent Slough -Structure Exposed Bone -Texture (Annamaria-wound Skin Appearance) Scarring -Moisture (Annamaria-wound Skin Appearance) No Abnormality -Color (Annamaria-wound Skin Appearance) No Abnormality -Temperature (Annamaria-wound Skin No Abnormality Appearance) (Pt Warm) -Tenderness on Palpation (Annamaria-wound No Skin Appearance) -Ulcer Cleansing Soap and Water -Foul Odor after Cleansing No WC - Nurse 2 - General Ulcer CM Notes Start: 07/01/21 11:08 Freq: Status: Active Protocol: Activity Type Activity Date Activity User E-Sign Co-Sign Detail Recorded Client Recorded Date Recorded By Document 07/01/21 11:31 ESTRELLA [id number] 07/01/21 11:47 ESTRELLA 07/01/21 11:31 Wound Center Nurse 2 #7- R ISCHIAL -Time 11:37 -Correct Patient Yes -Correct Side, Site, Position Yes -Correct Procedure Yes -Procedure Performed Yes -Type of Procedure Debridement -Clinical Debridement Bone -Tissue Removed Non-viable tissue -Post Debridement (cm) - Length 9.0 -Post Debridement (cm) - Width 6.0 -Post Debridement (cm) - Depth 5.2 -Total Square (Post) (cm) 54.00 -Area of Debridement (cm) - Length 9.0 -Area of Debridement (cm) - Width 6.0 -Total Square (Area) (cm) 54.00 -Tunneling No -Undermining/Tunneling No -Circular Undermining No -Wound/Ulcer Outcome Not Healed -Ulcer Cleansing Rinsed/ Irrigated with Saline -Foul Odor after Cleansing No -Bioengineered Tissue No -Bleeding Controlled with Pressure,Silver Nitrate -Treatment Response Procedure Tolerated Well -Offloading No -Pressure Reduction Wheelchair cushion, Mattress overlay -Debridement - Bone, 1st 20sq cm Yes -Debridement, Bone, ea addt'l 20sq cm 2 or part thereof #5 L Post Knee -Time 11:37 -Correct Patient Yes -Correct Side, Site, Position Yes -Correct Procedure Yes -Procedure Performed Yes -Type of Procedure Debridement -Clinical Debridement Subcutaneous -Tissue Removed Subcutaneous -Post Debridement (cm) - Length 0.7 -Post Debridement (cm) - Width 1.0 -Post Debridement (cm) - Depth 2.5 -Total Square (Post) (cm) 0.70 -Area of Debridement (cm) - Length 0.7 -Area of Debridement (cm) - Width 1.0 -Total Square (Area) (cm) 0.70 -Tunneling No -Undermining/Tunneling No -Circular Undermining No -Wound/Ulcer Outcome Not Healed -Ulcer Cleansing Rinsed/ Irrigated with Saline -Foul Odor after Cleansing No -Bioengineered Tissue No -Bleeding Controlled with Pressure -Treatment Response Procedure Tolerated Well -Offloading No -Pressure Reduction Wheelchair cushion, Mattress overlay -Debridement - Subq, 1st 20sq cm No #4 sacrum/L Ischial -Time 11:38 -Correct Patient Yes -Correct Side, Site, Position Yes -Correct Procedure Yes -Procedure Performed Yes -Type of Procedure Debridement -Clinical Debridement Muscle / Fascia -Tissue Removed Muscle -Post Debridement (cm) - Length 21 -Post Debridement (cm) - Width 8.0 -Post Debridement (cm) - Depth 2.6 -Total Square (Post) (cm) 168.0 -Area of Debridement (cm) - Length 21 -Area of Debridement (cm) - Width 8.0 -Total Square (Area) (cm) 168.0 -Tunneling No -Undermining/Tunneling No -Circular Undermining No -Wound/Ulcer Outcome Not Healed -Ulcer Cleansing Rinsed/ Irrigated with Saline -Foul Odor after Cleansing No -Bioengineered Tissue No -Bleeding Controlled with Pressure -Treatment Response Procedure Tolerated Well -Offloading No -Pressure Reduction Wheelchair cushion, Mattress overlay -Debridement - Muscle / Fascia, 1st Yes 20sq cm -Debridement, Muscle/Fascia, ea addt'l 8 20sq cm or part thereof Pain Scale: 0-10 Numeric Is Patient Pain Free? Yes WC - Nurse 3 - General Ulcer D/C NN Start: 07/01/21 11:08 Freq: Status: Active Protocol: Activity Type Activity Date Activity User E-Sign Co-Sign Detail Recorded Client Recorded Date Recorded By Document 07/01/21 11:50 CLAUS [id number] 07/01/21 11:54 KR 07/01/21 11:50 Wound Care Nurse 3 #7- R ISCHIAL -Ulcer Cleansing Rinsed/ Irrigated with Saline -Other Dressing wet to dry and Abd pad -Primary Dressing Covered/Secured with Dry Gauze, Secured with Tape #5 L Post Knee -Ulcer Cleansing Rinsed/ Irrigated with Saline -Primary Dressing Applied Nugauze, Iodoform -Primary Dressing Covered/Secured with Dry Gauze, Secured with Tape -Nugauze, Iodoform 1/4 1 #4 sacrum/L Ischial -Ulcer Cleansing Rinsed/ Irrigated with Saline -Other Dressing wet to dry and ABD pad -Primary Dressing Covered/Secured with Dry Gauze, Secured with Tape Pain Scale: 0-10 Numeric Is Patient Pain Free? Yes WC - Visit Discharge Discharge Condition Stable Ambulatory Status Wheelchair Transportation Private Auto Accompanied by Additional Wound Wound debrided: Buttock/ischial/sacral ulcer Laterality: Left Wound Grade/Stage: Stage IV Type of Debridement: Excisional debridement Anesthesia Used: 4% Lidocaine Solution Depth: Down to and including healthy tissue, in the subcutaneous layer, to muscle and to bone Percentage of wound debrided: 100 Instrument Used: 7mm curette Tissue Removed: Nonviable tissue and slough into the muscle. Removed sharp piece of bone Severity: Fat Layer Exposed Amount of bleeding with debridement: Mild Bleeding Controlled with: Pressure and Compression and gauze Operative Diagnosis: Piece of bone removed that was pressing induced soft tissue causing trauma. Additional Wound Wound debrided: Posterior knee ulcer Laterality: Left Wound Grade/Stage: Stage IV Type of Debridement: Excisional debridement Anesthesia Used: 4% Lidocaine Solution Depth: Down to and including healthy tissue and in the subcutaneous layer Instrument Used: 3mm curette Tissue Removed: Nonviable tissue and slough Severity: Fat Layer Exposed Amount of bleeding with debridement: Mild Bleeding Controlled with: Pressure Patient tolerated procedure: Patient tolerated procedure well Assessment/Plan Assessment/Plan (1) Decubitus ulcer of right ischium, stage 4: CODE(S): L89.314 - Pressure ulcer of right buttock, stage 4 (2) Pressure ulcer of left buttock, stage 4: CODE(S): L89.324 - Pressure ulcer of left buttock, stage 4 (3) Ulcer of left knee: CODE(S): L97.829 - Non-pressure chronic ulcer of other part of left lower leg with unspecified severity QUALIFIERS: Non-pressure ulcer stage: with fat layer exposed Qualified Code(s): L97.822 - Non-pressure chronic ulcer of other part of left lower leg with fat layer exposed (4) Osteomyelitis of pelvis: CODE(S): M86.9 - Osteomyelitis, unspecified (5) Paraplegia following spinal cord injury: CODE(S): G82.20 - Paraplegia, unspecified (6) Metastatic renal cell carcinoma to bone: CODE(S): C79.51 - Secondary malignant neoplasm of bone; C64.9 - Malignant neoplasm of unspecified kidney, except renal pelvis (7) Severe protein-calorie malnutrition: CODE(S): E43 - Unspecified severe protein-calorie malnutrition (8) Acute postoperative anemia due to expected blood loss: CODE(S): D62 - Acute posthemorrhagic anemia PLAN: Wound care -Dakin's 0.25% moistened gauze to the buttock (left isc hium and sacral ulcer are now one ulcer) and the right ischial ulcers covered with ABDs or super absorbers daily. The left posterior knee ulcer will pack with half-inch iodoform gauze daily and cover with gauze/ABD pad. Stressed the importance of off loading throughout the day. She is getting measured for an electronic wheelchair to help with offloading. Right ischial tissue culture from 04/10/21 positive for Aspergillus fumigatus. Left ischial ulcer positive for bari parapsilosis. Completed fluconazole. Follow up two weeks.
== END 2021-07-06 23:59 | disposition home or self-care (01) ==
LOC: WC 11:00
PROVIDERS: PCP Family Medicine; Visit Provider Nurse Practitioner Family
DX: L89.154 Pressure ulcer of sacral region, stage 4 (principal); C79.51 Secondary malignant neoplasm of bone; L89.144 Pressure ulcer of left lower back, stage 4; L89.134 Pressure ulcer of right lower back, stage 4; L89.314 Pressure ulcer of right buttock, stage 4; L89.324 Pressure ulcer of left buttock, stage 4; G82.20 Paraplegia, unspecified; L97.822 Non-pressure chronic ulcer of other part of left lower leg with fat layer exposed; E43 Unspecified severe protein-calorie malnutrition; M86.9 Osteomyelitis, unspecified; M46.28 Osteomyelitis of vertebra, sacral and sacrococcygeal region; C64.9 Malignant neoplasm of unspecified kidney, except renal pelvis; D62 Acute posthemorrhagic anemia; R74.8 Abnormal levels of other serum enzymes
CPT/HCPCS: 11042; 11043; 11044; 11046; 11047

== ENCOUNTER → 2021-07-03 | Outpatient (CLI) | payer MEDICARE, SELFPAY ==
--- NOTE | 2021-07-03 13:30 | PET_ITS ---
STUDY: WHOLE BODY PET STUDY REASON FOR EXAM: Female, 55 years old. Known renal cell CA RADIATION DOSAGE (If Supplied By Facility): CTDIvol = ( 4.91 ) mGy, DLP = ( 386.10 ) mGycm. Individualized dose optimization techniques were used for this CT.? TECHNIQUE: Multiplanar whole body PET study performed after administration of 10.8 mCi of F-[address] FDG[address] Sim[address] non[address] CT scan also obtained COMPARISON: CT scan from 05/24/2021 FINDINGS: No abnormal suspicious increased PET activity is identified to suspect metabolically active neoplastic process. There is evidence of increased PET activity involving known decubitus ulcerations and within the destructive lesions within both inferior pubic rami. These findings are consistent with osteomyelitis. Normal physiologic activity noted in the brain, salivary glands, liver, heart, spleen, GI and systems. Additionally, there is physiologic activity noted within multiple muscles of the chest which could be due to labored breathing or tensing of muscle during the scan. The noncontrasted CT scan shows no suspicious that amount within the visualized brain parenchyma. No suspicious bulky adenopathy within the neck, there is a normal-appearing thyroid. There are large free-flowing bilateral pleural effusions with bibasilar atelectasis. There is no superimposed infiltrate or suspicious noncalcified mass or nodule in the lung field. No suspicious axillary mediastinal or perihilar adenopathy. Liver shows fatty infiltration without a discrete lesion. The right kidney has been previously removed. No suspicious mass in the nephrectomy bed. There is no suspicious mesenteric or retroperitoneal lymphadenopathy. There are stable severe decubitus ulcerations in both buttocks, left greater than right and destructive lesions noted within the inferior pubic rami. Bony structures show degenerative change. PET/PET/CT Tumor Base -Thigh Subs IMPRESSION: No suspicious abnormal PET activity to suspect a metabolically active neoplastic process Increased activity within the pelvis consistent with known decubitus ulcers and osteomyelitis involving both inferior pubic rami Electronically Signed: Paulie Lewis MD at 11:14 EDT ,
== END | disposition home or self-care (01) ==
LOC: ONC 13:08
PROVIDERS: PCP Family Medicine; Referring Provider Internal Medicine Hematology & Oncology; Visit Provider Internal Medicine Hematology & Oncology
DX: C64.1 Malignant neoplasm of right kidney, except renal pelvis (principal); C79.51 Secondary malignant neoplasm of bone
CPT/HCPCS: 78814; 78815; A9588

== ENCOUNTER 2021-07-29 11:00 | Outpatient (RCR) | payer MEDICARE, SELFPAY ==
[2021-07-07 00:35] VITALS: BP 93/60; PULSE 99; RESP 20; TEMP 36.3
[2021-07-15 11:06] VITALS: BP 110/49; PULSE 94; RESP 18; TEMP 36.5
--- NOTE | 2021-07-15 12:42 | PN.PCM_ITS ---
History of Present Illness Date of Service: 07/15/21 Chief Complaint: Sacral pressure sore, Stage IV, and left ischial pressure sore, Stage IV. History of Wound: 55 year old female with a history of renal cancer and metastasis to the bone presented [facility] with a sacral pressure sore and left ischial pressure sore. was admitted on 07/11/20 and discharged on 07/13/20 for sepsis related to an infected decubitus ulcer. She has been a paraplegic for 2.5 years after her back hardware broke. Her Oncologist is Dr. Valiente and she is on Cabometyx. She had a recent hospitalization from 06/01/21 - 06/07/21 for septic shock from UTI/sacral wound. Urine culture from 06/01/21 positive for yeast, not Bari albicans. Sacral wound culture 06/03/21 positive for Corynebacterium striatum and Enterococcus faecium. She was then discharged to an LTAC. She has been home for over a week. Surgery 04/10/21 for 1. Excision right ischial pressure ulcer, osteomyelitis. Stage IV, with partial ostectomy for osteomyelitis. 2. Excision sacral pressure ulcer, stage IV, with partial ostectomy for osteomyelitis. 3. Excision left ischial pressure ulcer, stage IV, with partial ostectomy for osteomyelitis. Pathology from 04/10/21 - Sacral tissue show focal ulceration, acute and chronic inflammation and granulation tissue reaction. Sacral bone show pieces of bone with acute and chronic osteomyelitis and reactive changes. Left ischial tissue show focal ulceration, acute and chronic inflammation, granulation tissue reaction and fat necrosis. Left ischial bone show pieces of bone with acute and chronic osteomyelitis and reactive changes. Right ischial tissue shows focal ulceration with acute and chronic inflammation and fat necrosis. Right ischial bone pieces of bone with acute and chronic osteomyelitis and reactive change. Operative cultures: Right ischial bone positive for Corynebacterium striatum, and Staphylococcus epidermidis. Right ischial tissue positive for Coag Negative Staph, Enterococcus faecalis and Corynebacterium striatum. Left ischial bone had no growth. Left ischial tissue positive for Bari parapsilosis and Staphylococcus epidermidis, Clostridium species and Anaerobic cocci. Sacral bone and tissue positive for Corynebacterium striatum. She was treated while h ospitalized with IV Vancomycin and Zosyn. Upon discharge she has been taking Linezolid and Augmentin. Surgery on 09/19/20 for 1. Excision left ischial pressure sore, Stage IV, with partial ostectomy for osteomyelitis. 2. Excision sacral pressure sore, Stage IV. Discharged 09/26/20. Ulcer to left posterior knee caused by her urine leg bag rubbing against her skin. Her first noticed it as scab. Wound culture obtained 11/19/20 which was positive for Staphylococcus aureus and Corynebacterium striatum and is being treated with Augmentin. She obtained second degree ko on her anterior thighs bilaterally when placing a rice pack that was too hot, they have since healed. Wound care - Dakins 0.25% moistened gauze covered with ABD/super absorber to the Left buttock (sacral and left ischia ulcer combined) ulcer and the right ischial ulcer daily. Iodoform gauze packed into the left posterior knee ulcer, cover with gauze daily. Wound culture of new right ischial ulcer from 04/02/21 done during a nurse visit was positive for Corynebacterium striatum and Enterococcus faecalis. She has not been treated for this at this time. She is being sent to the ED for further evaluation of this ulcer because of the need for possible operative debridement. Wound culture of sacral ulcer 01/07/21 positive for Corynebacterium striatum, Streptococcus mitis/oralis, Enterococcus faecalis, Anaerobic cocci, Actinomyces bovis, Bacteroides caccae, Bacteroides thetaiotaomicron. She was started on Clindamycin and Augmentin along with probiotic to treat the wound culture. Wound culture of left posterior knee 11/19/20 positive for Staphylococcus aureus and Corynebacterium striatum. She has been started on Augmentin. Operative wound cultures: Ischial pressure sore tissue positive for Staphylococcus aureus, Streptococcus group G, Streptococcus mitis/oralis, Anaerobic cocci and Bacteroides pyogenes. Ischial bone culture Staphylococcus aureus, Enterococcus faecalis, Streptococcue mitis/oralis , Anaerobic cocci, and Bacteroides pyogenes. Sacral tissue positive Staphylococcus aureus, Streptococcus mitis/oralis, Anaerobic cocci and Bacteroides pyogenes. Vancomycin IV had to be stopped due elevated liver enzymes. The other IV antibiotics that would be sensitive would cost the patient too much per week and patient doesn't want placed in a facility for IV antibiotics. She decided to start Augmentin po, which will not have as good bone coverage as an IV antibiotics would have. She had been sitting in her wheelchair up to 12 hours a day while her is at work. They have someone come and help her out of bed in the morning and get her into her wheelchair. She has a new cushion on her wheelchair from the past several months. Wound culture was done on 07/24/20. The left ischial pressure sore was positive for Pseudomonas oryzihabitans and MRSE. The sacral pressure sore was positive for E.coli, Entercoccus faecalis, Methicillin resistant Staphylococcus haemolyticus. She was started Doxycycline, Cipro and Augmentin. She was hospitalized 12/27/20 - 01/01/21 for Septic shock and Acute complicated UTI which showed E. coli. She was treated with IV antibiotics while hospitalized and discharged home on Amoxicillin. Today she denies fever, chills at this time but has had them on and off recently. Encourage nutritional supplementation with protein to help the healing process. Progress of Wound: Buttock ulcer (which encompasses the left ischial and sacral ulcers) is beefy pink, there is bone and muscle exposure. Right ischial ulcer is beefy pink with with bone and muscle exposure. Left posterior knee ulcer is slightly smaller in diameter but the depth remains the same. Objective Data Objective Data Vital Signs: Vital Signs Temp Pulse Resp BP 97.7 F L 94 18 110/49 L 07/15/21 11:06 07/15/21 11:06 07/15/21 11:06 07/15/21 11:06 Charges/Coding Procedures Integumentary 111xxx-113xx: [id number] Jerilyn musc/fascia 20 sq cm/< Add On Codes: [id number] Jerilyn musc/fascia add-on (x 13) Physical Exam Const alert and oriented x3 General Appearance: cooperative HEENT normocephalic Resp normal respiratory effort Extremity normal capillary refill Skin Wound Narrative: Buttock ulcer (which encompasses the left ischial and sacral ulcers) is beefy pink, there is bone and muscle exposure. Right ischial ulcer is beefy pink with with bone and muscle exposure. Annamaria wound is clear with no rash or erythema. Left posterior knee ulcer is slightly smaller in diameter but the depth remains the same. Neuro Sensorium / Orientation: awake, alert, oriented to person, oriented to place and oriented to time Psych Appearance: grossly normal and well kempt Debridement Note Debridement Note Wound debrided: Buttock ulcer (left ischial and sacral ulcer combined) Wound Grade/Stage: Stage IV Type of Debridement: Excisional debridement Anesthesia Used: 4% Lidocaine Solution Depth: Down to and including healthy tissue, in the subcutaneous layer, to muscle and to bone Percentage of wound debrided: 100 Instrument Used: 7mm curette Tissue Removed: Non viable tissue and slough Severity: Fat Layer Exposed Amount of bleeding with debridement: Moderate Bleeding Controlled with: Pressure, Compression and gauze, Silver Nitrate, Gel Foam and - (Bovie ) Patient tolerated procedure: Patient tolerated procedure well Debridement Free Text: Patient had bleeding on the right lower edge of ulcer. Pressure held, silver nitrate used and the oozing continued. Continued pressure and used bovie but the oozing continued. Used gel foam and held pressure and the oozing stopped. Post-Debridement Measurements and Additional Note: Post-Debridement Measurements/Treatment BRITTA - Nurse 1 - General Ulcer Assessment Start: 07/15/21 11:06 Freq: Status: Active Protocol: [facility] Activity Type Activity Date Activity User E-Sign Co-Sign Detail Recorded Client Recorded Date Recorded By Document 07/15/21 11:06 DL [id number] 07/15/21 11:20 DL 07/15/21 11:06 - Today's Visit Information Type of service Follow-up Visit (Physician/[employer] ) Arrival Mode Wheelchair Transfer Assistance Manual Transfer Assist (Other) x1 Patient Identification Verified (Name & Yes ) Patient Requires Transmission-Based No Precautions Vital Signs Temperature (97.8 F-99.1 F) 97.7 F L Temperature Source Temporal Pulse Rate (60-100) 94 Pulse Location Monitor Respiratory Rate (12-18) 18 Respiratory rate source Observation Blood Pressure (90/60-120/80) 110/49 L Blood Pressure Mean (mm Hg) 69 Source Monitor History Since Last Visit- (Skip if this is Patient's initial visit) Have you changed medications since your No last visit? Any new allergies or adverse reactions No Had a fall/change in ADL's that may No increase risk of falls Signs or symptoms of abuse and/or No neglect since last visit Have you been in the hospital since your No last visit? Has dressing in place as prescribed Yes Has compression in place as prescribed No Has offloadiing in place as prescribed Yes Experienced any changes in pain level or No management Pain Scale: 0-10 Numeric Is Patient Pain Free? Yes WC - Nurse 1 - General Ulcer Measurement Start: 07/15/21 11:06 Freq: Status: Active Protocol: Activity Type Activity Date Activity User E-Sign Co-Sign Detail Recorded Client Recorded Date Recorded By Document 07/15/21 11:06 DL [id number] 07/15/21 11:20 DL 07/15/21 11:06 Wound Center Nurse 1 #7- R ISCHIAL -Current Size (cm) - Length 7.2 -Current Size (cm) - Width 8 -Current Size (cm) - Depth 2.4 -Total Square Cm 57.6 -Photo Taken No -Tunneling Position (O'clock) 12 -Tunneling Distance (cm) 3.4 -Undermining/Tunneling Starts (O'clock 9 ) -Undermining/Tunneling Ends (O'clock) 12 -Maximum Distance (cm) 1.4 -Exudate Amt Medium -Wound Margin Distinct, Outline Attached -Granulation Amt Large (67-100%) -Granulation Quality Red -Necrosis Amt None Present (0 %) -Structure Exposed Bone -Texture (Annamaria-wound Skin Appearance) Scarring -Moisture (Annamaria-wound Skin Appearance) No Abnormality -Color (Annamaria-wound Skin Appearance) No Abnormality -Temperature (Annamaria-wound Skin No Abnormality Appearance) (Pt Warm) -Tenderness on Palpation (Annamaria-wound No Skin Appearance) -Ulcer Cleansing Soap and Water -Foul Odor after Cleansing No -Anesthetic Used 4% Lidocaine Solution #5 L Post Knee -Current Size (cm) - Length 0.1 -Current Size (cm) - Width 0.2 -Current Size (cm) - Depth 2.8 -Total Square Cm 0.02 -Photo Taken No -Exudate Amt Medium -Exudate Type Serosanguineous -Wound Margin Distinct, Outline Attached -Granulation Amt Large (67-100%) -Granulation Quality Red -Necrosis Amt None Present (0 %) -Structure Exposed N/A -Texture (Annamaria-wound Skin Appearance) Scarring -Moisture (Annamaria-wound Skin Appearance) No Abnormality -Color (Annamaria-wound Skin Appearance) No Abnormality -Temperature (Annamaria-wound Skin No Abnormality Appearance) (Pt Warm) -Ulcer Cleansing Soap and Water -Foul Odor after Cleansing No -Anesthetic Used 4% Lidocaine Solution #4 sacrum/L Ischial -Current Size (cm) - Length 19.4 -Current Size (cm) - Width 6.5 -Current Size (cm) - Depth 2 -Total Square Cm 126.10 -Photo Taken No -Undermining/Tunneling Starts (O'clock 11 ) -Undermining/Tunneling Ends (O'clock) 9 -Maximum Distance (cm) 2.4 -Exudate Amt Medium -Exudate Type Serosanguineous -Wound Margin Distinct, Outline Attached -Granulation Amt Large (67-100%) -Granulation Quality Red -Necrosis Amt None Present (0 %) -Structure Exposed Bone -Texture (Annamaria-wound Skin Appearance) Scarring -Moisture (Annamaria-wound Skin Appearance) No Abnormality -Color (Annamaria-wound Skin Appearance) No Abnormality -Temperature (Annamaria-wound Skin No Abnormality Appearance) (Pt Warm) -Tenderness on Palpation (Annamaria-wound No Skin Appearance) -Ulcer Cleansing Soap and Water -Foul Odor after Cleansing No -Anesthetic Used 4% Lidocaine Solution - Nurse 3 - General Ulcer D/C NN Start: 07/15/21 11:06 Freq: Status: Active Protocol: Activity Type Activity Date Activity User E-Sign Co-Sign Detail Recorded Client Recorded Date Recorded By Document 07/15/21 12:18 DL [id number] 07/15/21 12:22 DL 07/15/21 12:18 Wound Care Nurse 3 #7- R ISCHIAL -Ulcer Cleansing Soap and Water -Foul Odor after Cleansing No -Other Dressing Moistened gauze -Primary Dressing Covered/Secured with Dry Gauze, Secured with Tape -Other Covering abd #5 L Post Knee -Ulcer Cleansing Soap and Water -Foul Odor after Cleansing No -Other Dressing Iodoform packing -Primary Dressing Covered/Secured with Dry Gauze, Secured with Tape #4 sacrum/L Ischial -Ulcer Cleansing Soap and Water -Foul Odor after Cleansing No -Other Dressing moistended gauze -Primary Dressing Covered/Secured with Dry Gauze -Other Covering abd Treatment Response Procedure Tolerated Well Pain Scale: 0-10 Numeric Is Patient Pain Free? Yes WC - Visit Discharge Discharge Condition Stable Ambulatory Status Wheelchair Transportation Private Auto Notes: Pt to resume Dakins at home to Ischial and sacral ulcers. Orders Sent Yes Additional Wound Wound debrided: Right ischial ulcer Laterality: Right Wound Grade/Stage: Stage IV Type of Debridement: Excisional debridement Anesthesia Used: 4% Lidocaine Solution Depth: Down to and including healthy tissue, in the subcutaneous layer, to muscle and to bone Percentage of wound debrided: 100 Instrument Used: 7mm curette Tissue Removed: Non viable tissue and slough into the muscle Severity: Fat Layer Exposed Amount of bleeding with debridement: Mild Bleeding Controlled with: Compression and gauze Patient tolerated procedure: Patient tolerated procedure well Additional Wound Wound debrided: posterior knee ulcer Laterality: Left Wound Grade/Stage: Stage IV Anesthesia Used: 4% Lidocaine Solution Depth: Down to and including healthy tissue, in the subcutaneous layer and to muscle Percentage of wound debrided: 100 Instrument Used: 3mm curette Tissue Removed: Non viable tissue and slough Severity: Fat Layer Exposed Amount of bleeding with debridement: Mild Bleeding Controlled with: Pressure and Compression and gauze Patient tolerated procedure: Patient tolerated procedure well Assessment/Plan Assessment/Plan (1) Pressure ulcer of left buttock, stage 4: CODE(S): L89.324 - Pressure ulcer of left buttock, stage 4 (2) Decubitus ulcer of right ischium, stage 4: CODE(S): L89.314 - Pressure ulcer of right buttock, stage 4 (3) Ulcer of left knee: CODE(S): L97.829 - Non-pressure chronic ulcer of other part of left lower leg with unspecified severity QUALIFIERS: Non-pressure ulcer stage: with fat layer exposed Qualified Code(s): L97.822 - Non-pressure chronic ulcer of other part of left lower leg with fat layer exposed (4) Osteomyelitis of pelvis: CODE(S): M86.9 - Osteomyelitis, unspecified (5) Paraplegia following spinal cord injury: CODE(S): G82.20 - Paraplegia, unspecified (6) Malignant neoplasm of unspecified kidney, except renal pelvis: CODE(S): C64.9 - Malignant neoplasm of unspecified kidney, except renal pelvis (7) Metastatic renal cell carcinoma to bone: CODE(S): C79.51 - Secondary malignant neoplasm of bone; C64.9 - Malignant neoplasm of unspecified kidney, except renal pelvis PLAN: Debridement performed today. The buttock/left ischial/sacral ulcer debridement was not aggressive but she had bleeding/oozing that was difficult to control with pressure alone. After using silver nitrate, a bovie and then gel foam, and additional pressure able to get the bleeding under control. Wound care -Dakin's 0.25% moistened gauze to the buttock (left ischium and sacral ulcer are now one ulcer) and the right ischial ulcers covered with ABDs or super absorbers daily. The left posterior knee ulcer will pack with quarter- inch iodoform gauze daily and cover with gauze/ABD pad. Stressed the importance of off loading throughout the day. She is getting measu red for an electronic wheelchair, so hopefully this will help with offloading, waiting for her insurance to approve the wheelchair. Right ischial tissue culture from 04/10/21 positive for Aspergillus fumigatus. Left ischial ulcer positive for bari parapsilosis. Completed fluconazole. Follow up two weeks.
--- NOTE | 2021-07-17 16:49 | WC ---
Received a call from Desiree Aguilar regarding patient's approval for motorized wheelchair. She performed a peer to peer conversation with [facility] [place] regarding this and they have further questions about codes and whether patient will need a cushion or a seat? Left a voicemail with [facility] and explained to them the additional information that is being requested by [facility]. If they have further questions, they can notify us or call [facility] directly.
[2021-07-29 11:04] VITALS: BP 96/56; PULSE 96; RESP 16; TEMP 35.9
--- NOTE | 2021-07-29 12:38 | PN.PCM_ITS ---
History of Present Illness Date of Service: 07/29/21 Chief Complaint: Sacral pressure sore, Stage IV, and left ischial pressure sore, Stage IV. History of Wound: 55 year old female with a history of renal cancer and metastasis to the bone presented to [facility] with a sacral pressure sore and left ischial pressure sore. was admitted on 07/11/20 and discharged on 07/13/20 for sepsis related to an infected decubitus ulcer. She has been a paraplegic for 2.5 years after her back hardware broke. Her Oncologist is Dr. Valiente and she is on Cabometyx. She had a recent hospitalization from 06/01/21 - 06/07/21 for septic shock from UTI/sacral wound. Urine culture from 06/01/21 positive for yeast, not Bari albicans. Sacral wound culture 06/03/21 positive for Corynebacterium striatum and Enterococcus faecium. She was then discharged to an LTAC. She has been home for over a week. Surgery 04/10/21 for 1. Excision right ischial pressure ulcer, osteomyelitis. Stage IV, with partial ostectomy for osteomyelitis. 2. Excision sacral pressure ulcer, stage IV, with partial ostectomy for osteomyelitis. 3. Excision left ischial pressure ulcer, stage IV, with partial ostectomy for osteomyelitis. Pathology from 04/10/21 - Sacral tissue show focal ulceration, acute and chronic inflammation and granulation tissue reaction. Sacral bone show pieces of bone with acute and chronic osteomyelitis and reactive changes. Left ischial tissue show focal ulceration, acute and chronic inflammation, granulation tissue reaction and fat necrosis. Left ischial bone show pieces of bone with acute and chronic osteomyelitis and reactive changes. Right ischial tissue shows focal ulceration with acute and chronic inflammation and fat necrosis. Right ischial bone pieces of bone with acute and chronic osteomyelitis and reactive change. Operative cultures: Right ischial bone positive for Corynebacterium striatum, and Staphylococcus epidermidis. Right ischial tissue positive for Coag Negative Staph, Enterococcus faecalis and Corynebacterium striatum. Left ischial bone had no growth. Left ischial tissue positive for Bari parapsilosis and Staphylococcus epidermidis, Clostridium species and Anaerobic cocci. Sacral bone and tissue positive for Corynebacterium striatum. She was treated while h ospitalized with IV Vancomycin and Zosyn. Upon discharge she has been taking Linezolid and Augmentin. Surgery on 09/19/20 for 1. Excision left ischial pressure sore, Stage IV, with partial ostectomy for osteomyelitis. 2. Excision sacral pressure sore, Stage IV. Discharged 09/26/20. Ulcer to left posterior knee caused by her urine leg bag rubbing against her skin. Her first noticed it as scab. Wound culture obtained 11/19/20 which was positive for Staphylococcus aureus and Corynebacterium striatum and is being treated with Augmentin. She obtained second degree ko on her anterior thighs bilaterally when placing a rice pack that was too hot, they have since healed. Wound care - Dakins 0.25% moistened gauze covered with ABD/super absorber to the Left buttock (sacral and left ischia ulcer combined) ulcer and the right ischial ulcer daily. Iodoform gauze packed into the left posterior knee ulcer, cover with gauze daily. Wound culture of new right ischial ulcer from 04/02/21 done during a nurse visit was positive for Corynebacterium striatum and Enterococcus faecalis. She has not been treated for this at this time. She is being sent to the ED for further evaluation of this ulcer because of the need for possible operative debridement. Wound culture of sacral ulcer 01/07/21 positive for Corynebacterium striatum, Streptococcus mitis/oralis, Enterococcus faecalis, Anaerobic cocci, Actinomyces bovis, Bacteroides caccae, Bacteroides thetaiotaomicron. She was started on Clindamycin and Augmentin along with probiotic to treat the wound culture. Wound culture of left posterior knee 11/19/20 positive for Staphylococcus aureus and Corynebacterium striatum. She has been started on Augmentin. Operative wound cultures: Ischial pressure sore tissue positive for Staphylococcus aureus, Streptococcus group G, Streptococcus mitis/oralis, Anaerobic cocci and Bacteroides pyogenes. Ischial bone culture Staphylococcus aureus, Enterococcus faecalis, Streptococcue mitis/oralis , Anaerobic cocci, and Bacteroides pyogenes. Sacral tissue positive Staphylococcus aureus, Streptococcus mitis/oralis, Anaerobic cocci and Bacteroides pyogenes. Vancomycin IV had to be stopped due elevated liver enzymes. The other IV antibiotics that would be sensitive would cost the patient too much per week and patient doesn't want placed in a facility for IV antibiotics. She decided to start Augmentin po, which will not have as good bone coverage as an IV antibiotics would have. She had been sitting in her wheelchair up to 12 hours a day while her is at work. They have someone come and help her out of bed in the morning and get her into her wheelchair. She has a new cushion on her wheelchair from the past several months. Wound culture was done on 07/24/20. The left ischial pressure sore was positive for Pseudomonas oryzihabitans and MRSE. The sacral pressure sore was positive for E.coli, Entercoccus faecalis, Methicillin resistant Staphylococcus haemolyticus. She was started Doxycycline, Cipro and Augmentin. She was hospitalized 12/27/20 - 01/01/21 for Septic shock and Acute complicated UTI which showed E. coli. She was treated with IV antibiotics while hospitalized and discharged home on Amoxicillin. Today she denies fever, chills at this time but has had them on and off recently. Encourage nutritional supplementation with protein to help the healing process. Progress of Wound: Buttock ulcer (which encompasses the left ischial and sacral ulcers) is beefy pink, there is bone and muscle exposure. Right ischial ulcer is beefy pink with with bone and muscle exposure. Left posterior knee ulcer is stable. Objective Data Objective Data Vital Signs: Vital Signs Temp Pulse Resp BP 96.6 F L 96 16 96/56 L 07/29/21 11:04 07/29/21 11:04 07/29/21 11:04 07/29/21 11:04 Oxygen Delivery Method Room Air Charges/Coding Procedures Integumentary 111xxx-113xx: 43752 Jerilyn musc/fascia 20 sq cm/< (Left buttock/ischial ulcer and right ischial ulcer) Add On Codes: 90983 Jerilyn musc/fascia add-on (x11) Multi Select Codes Integumentary Integumentary CPT Codes: 39145 Jerilyn subq tissue 20 sq cm/< (left posterior knee ulcer) Physical Exam Const alert and oriented x3 General Appearance: cooperative HEENT normocephalic Head and Scalp: atraumatic Resp normal respiratory effort Cardio regular rate and regular rhythm Extremity normal capillary refill Skin Wound Narrative: Buttock ulcer (which encompasses the left ischial and sacral ulcers) is beefy pink, there is bone and muscle exposure. Right ischial ulcer is beefy pink with with bone and muscle exposure. Left posterior knee ulcer is stable. Annamaria wound of all the ulcers is clear. Neuro Speech: speech normal Psych Appearance: grossly normal and well kempt Debridement Note Debridement Note Wound debrided: buttocks/ischial ulcer Laterality: Left Wound Grade/Stage: Stage IV Type of Debridement: Excisional debridement Anesthesia Used: 4% Lidocaine Solution Depth: Down to and including healthy tissue, in the subcutaneous layer, to muscle and to bone Percentage of wound debrided: 100 Instrument Used: 7mm curette Tissue Removed: Nonviable tissue and slough into the muscle, bone is exposed Severity: Fat Layer Exposed Amount of bleeding with debridement: Mild Bleeding Controlled with: Pressure and Compression and gauze Patient tolerated procedure: Patient tolerated procedure well Post-Debridement Measurements and Additional Note: Post-Debridement Measurements/Treatment - Nurse 1 - General Ulcer Assessment Start: 07/15/21 11:06 Freq: Status: Active Protocol: YOLA Activity Type Activity Date Activity User E-Sign Co-Sign Detail Recorded Client Recorded Date Recorded By Document 07/15/21 11:06 [id number] 07/15/21 11:20 DL Document 07/29/21 11:04 [facility] [id number] 07/29/21 11:16 [facility] 07/15/21 07/29/21 11:06 11:04 - Today's Visit Information Type of service Follow-up Visit Follow-up Visit (Physician/SUBMARINE ADVISORY TEAM WATCH OFFICER (Physician/SUBMARINE ADVISORY TEAM WATCH OFFICER ) ) Arrival Mode Wheelchair Wheelchair Transfer Assistance Manual Other Transfer Assist (Other) x1 transfers Accompanied by Patient Identification Verified (Name & Yes Yes ) Patient Requires Transmission-Based No No Precautions Vital Signs Temperature (97.8 F-99.1 F) 97.7 F L 96.6 F L Temperature Source Temporal Temporal Pulse Rate (60-100) 94 96 Pulse Location Monitor Monitor Respiratory Rate (12-18) 18 16 Respiratory rate source Observation Observation Oxygen Delivery Method Room Air Blood Pressure (90/60-120/80) 110/49 L 96/56 L Blood Pressure Mean (mm Hg) 69 69 Source Monitor Monitor Position Sitting Blood Pressure Location Right Arm History Since Last Visit- (Skip if this is Patient's initial visit) Have you changed medications since your No No last visit? Any new allergies or adverse reactions No No Had a fall/change in ADL's that may No No increase risk of falls Signs or symptoms of abuse and/or No No neglect since last visit Have you been in the hospital since your No No last visit? Has dressing in place as prescribed Yes Yes Has compression in place as prescribed No N/A Has offloadiing in place as prescribed Yes N/A Experienced any changes in pain level or No No management Left Footwear Regular Shoe Right Footwear Regular Shoe Pain Scale: 0-10 Numeric Is Patient Pain Free? Yes Yes WC - Nurse 1 - General Ulcer Measurement Start: 07/15/21 11:06 Freq: Status: Active Protocol: Activity Type Activity Date Activity User E-Sign Co-Sign Detail Recorded Client Recorded Date Recorded By Document 07/15/21 11:06 DL [id number] 07/15/21 11:20 DL Document 07/29/21 11:04 [facility] [id number] 07/29/21 11:16 BM 07/15/21 07/29/21 11:06 11:04 Wound Center Nurse 1 #7- R ISCHIAL -Combined with other wound No -Current Size (cm) - Length 7.2 8 -Current Size (cm) - Width 8 5 -Current Size (cm) - Depth 2.4 4.4 -Total Square Cm 57.6 40 -Date of Last Picture (Recall this 07/29/21 field) -Photo Taken No Yes -Epithelialization Small 1-33% -Tunneling Yes -Tunneling Position (O'clock) 12 11 -Tunneling Distance (cm) 3.4 5 -Undermining/Tunneling No -Undermining/Tunneling Starts (O'clock 9 ) -Undermining/Tunneling Ends (O'clock) 12 -Maximum Distance (cm) 1.4 -Circular Undermining No -Exudate Amt Medium Large -Exudate Type Serosanguineous -Wound Margin Distinct, Distinct, Outline Outline Attached Attached -Granulation Amt Large (67-100%) Large (67-100%) -Granulation Quality Red Red -Slough/Fibrin Yes -Necrosis Amt None Present (0 Small (1-33%) %) -Necrotic Tissue Type Adherent Slough -Structure Exposed Bone Bone -Texture (Annamaria-wound Skin Appearance) Scarring Assessed -Moisture (Annamaria-wound Skin Appearance) No Abnormality Assessed -Color (Annamaria-wound Skin Appearance) No Abnormality Assessed -Temperature (Annamaria-wound Skin No Abnormality No Abnormality Appearance) (Pt Warm) (Pt Warm) -Tenderness on Palpation (Annamaria-wound No No Skin Appearance) -Ulcer Cleansing Soap and Water Soap and Water -Foul Odor after Cleansing No No -Anesthetic Used 4% Lidocaine Solution #5 L Post Knee -Combined with other wound No -Current Size (cm) - Length 0.1 0.3 -Current Size (cm) - Width 0.2 0.3 -Current Size (cm) - Depth 2.8 2.1 -Total Square Cm 0.02 0.09 -Date of Last Picture (Recall this 07/29/21 field) -Photo Taken No Yes -Epithelialization None Present -Tunneling No -Undermining/Tunneling No -Circular Undermining No -Exudate Amt Medium Medium -Exudate Type Serosanguineous Serosanguineous -Wound Margin Distinct, Distinct, Outline Outline Attached Attached -Granulation Amt Large (67-100%) Large (67-100%) -Granulation Quality Red Red -Slough/Fibrin No -Necrosis Amt None Present (0 None Present (0 %) %) -Structure Exposed N/A -Texture (Annamaria-wound Skin Appearance) Scarring Assessed, Scarring -Moisture (Annamaria-wound Skin Appearance) No Abnormality Assessed -Color (Annamaria-wound Skin Appearance) No Abnormality Assessed -Temperature (Annamaria-wound Skin No Abnormality No Abnormality Appearance) (Pt Warm) (Pt Warm) -Tenderness on Palpation (Annamaria-wound No Skin Appearance) -Ulcer Cleansing Soap and Water Soap and Water -Foul Odor after Cleansing No No -Anesthetic Used 4% Lidocaine Solution #4 sacrum/L Ischial -Combined with other wound No -Current Size (cm) - Length 19.4 20.9 -Current Size (cm) - Width 6.5 6 -Current Size (cm) - Depth 2 1.9 -Total Square Cm 126.10 125.4 -Date of Last Picture (Recall this 07/29/21 field) -Photo Taken No Yes -Epithelialization Small 1-33% -Tunneling No -Undermining/Tunneling No -Undermining/Tunneling Starts (O'clock 11 ) -Undermining/Tunneling Ends (O'clock) 9 -Maximum Distance (cm) 2.4 -Circular Undermining No -Exudate Amt Medium Large -Exudate Type Serosanguineous Serosanguineous -Wound Margin Distinct, Distinct, Outline Outline Attached Attached -Granulation Amt Large (67-100%) Large (67-100%) -Granulation Quality Red Red -Slough/Fibrin Yes -Necrosis Amt None Present (0 Small (1-33%) %) -Necrotic Tissue Type Adherent Slough -Structure Exposed Bone Bone -Texture (Annamaria-wound Skin Appearance) Scarring Assessed, Scarring -Moisture (Annamaria-wound Skin Appearance) No Abnormality Assessed -Color (Annamaria-wound Skin Appearance) No Abnormality Assessed -Temperature (Annamaria-wound Skin No Abnormality No Abnormality Appearance) (Pt Warm) (Pt Warm) -Tenderness on Palpation (Annamaria-wound No No Skin Appearance) -Ulcer Cleansing Soap and Water Soap and Water -Foul Odor after Cleansing No No -Anesthetic Used 4% Lidocaine Solution WC - Nurse 2 - General Ulcer CM Notes Start: 07/15/21 11:06 Freq: Status: Active Protocol: Activity Type Activity Date Activity User E-Sign Co-Sign Detail Recorded Client Recorded Date Recorded By Document 07/15/21 12:40 PL [id number] 07/15/21 12:45 PL Document 07/29/21 11:27 [id number] 07/29/21 11:34 07/15/21 07/29/21 12:40 11:27 Wound Center Nurse 2 #7- R ISCHIAL -Time 11:36 -Correct Patient Yes Yes -Correct Side, Site, Position Yes Yes -Correct Procedure Yes Yes -Procedure Performed Yes Yes -Type of Procedure Chemical Debridement Cauterization ( $) -Clinical Debridement Muscle / Fascia Muscle / Fascia -Tissue Removed Subcutaneous Muscle,Fascia -Post Debridement (cm) - Length 9.0 9.5 -Post Debridement (cm) - Width 6.0 5.0 -Post Debridement (cm) - Depth 6.9 6.4 -Total Square (Post) (cm) 54.00 47.50 -Area of Debridement (cm) - Length 9.0 9.5 -Area of Debridement (cm) - Width 6.0 5.0 -Total Square (Area) (cm) 54.00 47.50 -Tunneling No No -Undermining/Tunneling No No -Circular Undermining No No -Wound/Ulcer Outcome Not Healed Not Healed -Ulcer Cleansing Rinsed/ Rinsed/ Irrigated with Irrigated with Saline Saline -Foul Odor after Cleansing No No -Bioengineered Tissue No No -Bleeding Controlled with SURGIFOAM Pressure -Treatment Response Procedure Procedure Tolerated Well Tolerated Well -Offloading No -Pressure Reduction Wheelchair cushion, Specialty bed -Debridement - Muscle / Fascia, 1st No Yes 20sq cm -Debridement, Muscle/Fascia, ea addt'l 11 20sq cm or part thereof #5 L Post Knee -Time 11:36 11:31 -Correct Patient Yes Yes -Correct Side, Site, Position Yes Yes -Correct Procedure Yes Yes -Procedure Performed Yes Yes -Type of Procedure Debridement Debridement -Clinical Debridement Muscle / Fascia Subcutaneous -Tissue Removed Epidermis, Subcutaneous Dermis, Subcutaneous, Muscle -Post Debridement (cm) - Length 0.3 0.5 -Post Debridement (cm) - Width 0.6 0.5 -Post Debridement (cm) - Depth 2.4 2.5 -Total Square (Post) (cm) 0.18 0.25 -Area of Debridement (cm) - Length 0.3 0.5 -Area of Debridement (cm) - Width 0.6 0.5 -Total Square (Area) (cm) 0.18 0.25 -Tunneling No No -Undermining/Tunneling No No -Circular Undermining No No -Wound/Ulcer Outcome Not Healed Not Healed -Ulcer Cleansing Rinsed/ Rinsed/ Irrigated with Irrigated with Saline Saline -Foul Odor after Cleansing No No -Bioengineered Tissue No No -Bleeding Controlled with Pressure -Treatment Response Procedure Tolerated Well -Offloading No -Pressure Reduction Wheelchair cushion, Specialty bed -Debridement - Subq, 1st 20sq cm Yes -Debridement - Muscle / Fascia, 1st No 20sq cm #4 sacrum/L Ischial -Time 11:36 11:31 -Correct Patient Yes Yes -Correct Side, Site, Position Yes Yes -Correct Procedure Yes Yes -Procedure Performed Yes Yes -Type of Procedure Debridement Debridement -Clinical Debridement Muscle / Fascia Muscle / Fascia -Tissue Removed Epidermis, Muscle Dermis, Subcutaneous, Muscle -Post Debridement (cm) - Length 9.0 9.5 -Post Debridement (cm) - Width 6.0 20.0 -Post Debridement (cm) - Depth 6.9 2.3 -Total Square (Post) (cm) 54.00 190.00 -Area of Debridement (cm) - Length 9.0 9.5 -Area of Debridement (cm) - Width 6.0 20.0 -Total Square (Area) (cm) 54.00 190.00 -Tunneling No No -Undermining/Tunneling No No -Circular Undermining No No -Wound/Ulcer Outcome Not Healed Not Healed -Ulcer Cleansing Rinsed/ Rinsed/ Irrigated with Irrigated with Saline Saline -Foul Odor after Cleansing No No -Bioengineered Tissue No No -Bleeding Controlled with Pressure Pressure -Treatment Response Procedure Procedure Tolerated Well Tolerated Well -Offloading No -Pressure Reduction Wheelchair cushion, Specialty bed -Debridement - Muscle / Fascia, 1st Yes No 20sq cm -Debridement, Muscle/Fascia, ea addt'l 13 20sq cm or part thereof Pain Scale: 0-10 Numeric Is Patient Pain Free? Yes Yes WC - Nurse 3 - General Ulcer D/C NN Start: 07/15/21 11:06 Freq: Status: Active Protocol: Activity Type Activity Date Activity User E-Sign Co-Sign Detail Recorded Client Recorded Date Recorded By Document 07/15/21 12:18 [id number] 07/15/21 12:22 DL Document 07/29/21 11:43 [facility] [id number] 07/29/21 11:45 [facility] 07/15/21 07/29/21 12:18 11:43 Wound Care Nurse 3 #7- R ISCHIAL -Ulcer Cleansing Soap and Water Rinsed/ Irrigated with Saline -Foul Odor after Cleansing No No -Primary Dressing Applied Other -Other Dressing Moistened gauze moist to dry -Primary Dressing Covered/Secured with Dry Gauze, Secured with Secured with Tape,Other Tape -Other Covering abd abd, drsg per in demurrage worker #5 L Post Knee -Ulcer Cleansing Soap and Water Rinsed/ Irrigated with Saline -Foul Odor after Cleansing No No -Primary Dressing Applied Nugauze, Plain Iodoform -Other Dressing Iodoform drsg per in demurrage worker packing -Primary Dressing Covered/Secured with Dry Gauze, Dry Gauze, Secured with Secured with Tape Tape -Nugauze, Plain Iodoform 1/4 1 #4 sacrum/L Ischial -Ulcer Cleansing Soap and Water Rinsed/ Irrigated with Saline -Foul Odor after Cleansing No No -Primary Dressing Applied Other -Other Dressing moistended moist to dry gauze -Primary Dressing Covered/Secured with Dry Gauze Secured with Tape,Other -Other Covering abd abd, drsg per ak demurrage worker Treatment Response Procedure Procedure Tolerated Well Tolerated Well Pain Scale: 0-10 Numeric Is Patient Pain Free? Yes Yes WC - Visit Discharge Discharge Condition Stable Stable Ambulatory Status Wheelchair Wheelchair Transportation Private Auto Private Auto Accompanied by Facility Type [facility] Facility Notes: Pt to resume Dakins at home to Ischial and sacral ulcers. Orders Sent Yes Additional Wound Wound debrided: Ischial ulcer Laterality: Right Wound Grade/Stage: Stage IV Type of Debridement: Excisional debridement Anesthesia Used: 4% Lidocaine Solution Depth: Down to and including healthy tissue, in the subcutaneous layer, to muscle and to bone Percentage of wound debrided: 100 Instrument Used: 7mm curette Tissue Removed: Nonviable tissue and slough into the muscle with bone exposure Severity: Fat Layer Exposed Amount of bleeding with debridement: Mild Bleeding Controlled with: Pressure and Compression and gauze Patient tolerated procedure: Patient tolerated procedure well Additional Wound Wound debrided: Posterior knee ulcer Laterality: Left Wound Grade/Stage: Stage IV Type of Debridement: Excisional debridement Anesthesia Used: 4% Lidocaine Solution Depth: Down to and including healthy tissue and in the subcutaneous layer Percentage of wound debrided: 100 Instrument Used: 3mm curette Tissue Removed: Nonviable tissue and slough Severity: Fat Layer Exposed Amount of bleeding with debridement: Mild Bleeding Controlled with: Pressure Patient tolerated procedure: Patient tolerated procedure well Assessment/Plan Assessment/Plan (1) Pressure ulcer of left buttock, stage 4: CODE(S): L89.324 - Pressure ulcer of left buttock, stage 4 (2) Decubitus ulcer of right ischium, stage 4: CODE(S): L89.314 - Pressure ulcer of right buttock, stage 4 (3) Ulcer of left knee: CODE(S): L97.829 - Non-pressure chronic ulcer of other part of left lower leg with unspecified severity QUALIFIERS: Non-pressure ulcer stage: with fat layer exposed Qu alified Code(s): L97.822 - Non-pressure chronic ulcer of other part of left lower leg with fat layer exposed (4) Osteomyelitis of pelvis: CODE(S): M86.9 - Osteomyelitis, unspecified (5) Paraplegia following spinal cord injury: CODE(S): G82.20 - Paraplegia, unspecified (6) Malignant neoplasm of unspecified kidney, except renal pelvis: CODE(S): C64.9 - Malignant neoplasm of unspecified kidney, except renal pelvis (7) Metastatic renal cell carcinoma to bone: CODE(S): C79.51 - Secondary malignant neoplasm of bone; C64.9 - Malignant neoplasm of unspecified kidney, except renal pelvis PLAN: Debridement performed today. Did not have issues with abnormal bleeding today. Wound care -Dakin's 0.25% moistened gauze to the buttock (left ischium and sacral ulcer are now one ulcer) and the right ischial ulcers covered with ABDs or super absorbers daily. The left posterior knee ulcer will pack with quarter- inch iodoform gauze daily and cover with gauze/ABD pad. Stressed the importance of off loading throughout the day. We are waiting for insurance approval for her electronic wheel chair. She has been measured for an electronic it, hopefully this will help with offloading, waiting for her insurance to approve the wheelchair. Right ischial tissue culture from 04/10/21 positive for Aspergillus fumigatus. Left ischial ulcer positive for bari parapsilosis. Completed fluconazole. Follow up two weeks.
== END 2021-08-06 23:59 | disposition home or self-care (01) ==
LOC: WC 11:00
PROVIDERS: PCP Family Medicine; Visit Provider Nurse Practitioner Family
DX: L89.314 Pressure ulcer of right buttock, stage 4 (principal); C79.51 Secondary malignant neoplasm of bone; L89.134 Pressure ulcer of right lower back, stage 4; L89.324 Pressure ulcer of left buttock, stage 4; L89.144 Pressure ulcer of left lower back, stage 4; L89.154 Pressure ulcer of sacral region, stage 4; G82.20 Paraplegia, unspecified; L97.822 Non-pressure chronic ulcer of other part of left lower leg with fat layer exposed; M86.9 Osteomyelitis, unspecified; M46.28 Osteomyelitis of vertebra, sacral and sacrococcygeal region; C64.9 Malignant neoplasm of unspecified kidney, except renal pelvis; R74.8 Abnormal levels of other serum enzymes
CPT/HCPCS: 11042; 11043; 11046; 17250

== ENCOUNTER 2021-09-02 11:00 | Outpatient (RCR) | payer MEDICARE, SELFPAY ==
[2021-08-07 00:52] VITALS: BP 96/56; PULSE 96; RESP 16; TEMP 35.9
[2021-08-19 11:09] VITALS: BP 95/57; RESP 74; TEMP 36.1
--- NOTE | 2021-08-19 12:23 | PCM.WC.PN ---
History of Present Illness Date of Service: 08/19/21 Chief Complaint: Sacral pressure sore, Stage IV, and left ischial pressure sore, Stage IV. History of Wound: 55 year old female with a history of renal cancer and metastasis to the bone presented [facility] with a sacral pressure sore and left ischial pressure sore. was admitted on 07/11/20 and discharged on 07/13/20 for sepsis related to an infected decubitus ulcer. She has been a paraplegic for 2.5 years after her back hardware broke. Her Oncologist is Dr. Valiente and she is on Cabometyx. She had a recent hospitalization from 06/01/21 - 06/07/21 for septic shock from UTI/sacral wound. Urine culture from 06/01/21 positive for yeast, not Bari albicans. Sacral wound culture 06/03/21 positive for Corynebacterium striatum and Enterococcus faecium. She was then discharged to an LTAC. She has been home for over a week. Surgery 04/10/21 for 1. Excision right ischial pressure ulcer, osteomyelitis. Stage IV, with partial ostectomy for osteomyelitis. 2. Excision sacral pressure ulcer, stage IV, with partial ostectomy for osteomyelitis. 3. Excision left ischial pressure ulcer, stage IV, with partial ostectomy for osteomyelitis. Pathology from 04/10/21 - Sacral tissue show focal ulceration, acute and chronic inflammation and granulation tissue reaction. Sacral bone show pieces of bone with acute and chronic osteomyelitis and reactive changes. Left ischial tissue show focal ulceration, acute and chronic inflammation, granulation tissue reaction and fat necrosis. Left ischial bone show pieces of bone with acute and chronic osteomyelitis and reactive changes. Right ischial tissue shows focal ulceration with acute and chronic inflammation and fat necrosis. Right ischial bone pieces of bone with acute and chronic osteomyelitis and reactive change. Operative cultures: Right ischial bone positive for Corynebacterium striatum, and Staphylococcus epidermidis. Right ischial tissue positive for Coag Negative Staph, Enterococcus faecalis and Corynebacterium striatum. Left ischial bone had no growth. Left ischial tissue positive for Bari parapsilosis and Staphylococcus epidermidis, Clostridium species and Anaerobic cocci. Sacral bone and tissue positive for Corynebacterium striatum. She was treated while hospitalized with IV Vancomycin and Zosyn. Upon discharge she has been taking Linezolid and Augmentin. Surgery on 09/19/20 for 1. Excision left ischial pressure sore, Stage IV, with partial ostectomy for osteomyelitis. 2. Excision sacral pressure sore, Stage IV. Discharged 09/26/20. Ulcer to left posterior knee caused by her urine leg bag rubbing against her skin. Her first noticed it as scab. Wound culture obtained 11/19/20 which was positive for Staphylococcus aureus and Corynebacterium striatum and is being treated with Augmentin. She obtained second degree ko on her anterior thighs bilaterally when placing a rice pack that was too hot, they have since healed. Wound care - Wound care to the left buttock (sacral and left ischial ulcer combined) and the right ischial ulcer are Dakin's 0.25% moistened bandage rolls, such as kerilix covered with super absorber/ABD pads secured with tape daily and as needed. Iodoform gauze packed into the left posterior knee ulcer, cover with gauze daily. Wound culture of new right ischial ulcer from 04/02/21 done during a nurse visit was positive for Corynebacterium striatum and Enterococcus faecalis. She has not been treated for this at this time. She is being sent to the ED for further evaluation of this ulcer because of the need for possible operative debridement. Wound culture of sacral ulcer 01/07/21 positive for Corynebacterium striatum, Streptococcus mitis/oralis, Enterococcus faecalis, Anaerobic cocci, Actinomyces bovis, Bacteroides caccae, Bacteroides thetaiotaomicron. She was started on Clindamycin and Augmentin along with probiotic to treat the wound culture. Wound culture of left posterior knee 11/19/20 positive for Staphylococcus aureus and Corynebacterium striatum. She has been started on Augmentin. Operative wound cultures: Ischial pressure sore tissue positive for Staphylococcus aureus, Streptococcus group G, Streptococcus mitis/oralis, Anaerobic cocci and Bacteroides pyogenes. Ischial bone culture Staphylococcus aureus, Enterococcus faecalis, Streptococcue mitis/oralis , Anaerobic cocci, and Bacteroides pyogenes. Sacral tissue positive Staphylococcus aureus, Streptococcus mitis/oralis, Anaerobic cocci and Bacteroides pyogenes. Vancomycin IV had to be stopped due elevated liver enzymes. The other IV antibiotics that would be sensitive would cost the patient too much per week and patient doesn't want placed in a facility for IV antibiotics. She decided to start Augmentin po, which will not have as good bone coverage as an IV antibiotics would have. She had been sitting in her wheelchair up to 12 hours a day while her is at work. They have someone come and help her out of bed in the morning and get her into her wheelchair. She has a new cushion on her wheelchair from the past several months. Wound culture was done on 07/24/20. The left ischial pressure sore was positive for Pseudomonas oryzihabitans and MRSE. The sacral pressure sore was positive for E.coli, Entercoccus faecalis, Methicillin resistant Staphylococcus haemolyticus. She was started Doxycycline, Cipro and Augmentin. She was hospitalized 12/27/20 - 01/01/21 for Septic shock and Acute complicated UTI which showed E. coli. She was treated with IV antibiotics while hospitalized and discharged home on Amoxicillin. Today she denies fever, chills at this time but has had them on and off recently. Encourage nutritional supplementation with protein to help the healing process. Progress of Wound: The left ischial/buttock/sacral ulcer and the right ischial ulcer are beefy pink, bone is exposed in each ulcer and the ulcer is into the muscle. The annamaria wound is clear. The left posterior knee ulcer is stable with a tunnel to the muscle and bone. Annamaria wound is stable. Objective Data Objective Data Vital Signs: Vital Signs Temp Pulse Resp BP 97.0 F L 96 74 H 95/57 L 08/19/21 11:09 08/07/21 00:52 08/19/21 11:09 08/19/21 11:09 Charges/Coding Procedures Integumentary 111xxx-113xx: 15984 Jerilyn musc/fascia 20 sq cm/< Add On Codes: 44027 Jerilyn musc/fascia add-on (x10) Multi Select Codes Integumentary Integumentary CPT Codes: 57888 Jerilyn musc/fascia 20 sq cm/< Physical Exam Const alert and oriented x3 General Appearance: cooperative HEENT normocephalic Head and Scalp: atraumatic Resp normal respiratory effort Cardio regular rate and regular rhythm Extremity normal capillary refill Skin Wound Narrative: Buttock ulcer (which encompasses the left ischial and sacral ulcers) is beefy pink, there is bone and muscle exposure. Right ischial ulcer is beefy pink with with bone and muscle exposure. Left posterior knee ulcer is stable but tunnels into the muscle and the base there is bone. Annamaria wound of all the ulcers is clear. Neuro Speech: speech normal Psych Appearance: grossly normal and well kempt Debridement Note Debridement Note Wound debrided: Buttock (sacral and left ischial ulcer) Laterality: Left Wound Grade/Stage: Stage IV Type of Debridement: Excisional debridement Anesthesia Used: 4% Lidocaine Solution Depth: Down to and including healthy tissue, in the subcutaneous layer and to muscle Percentage of wound debrided: 100 Instrument Used: 7mm curette Tissue Removed: Nonviable tissue and slough Severity: Fat Layer Exposed Amount of bleeding with debridement: Mild Bleeding Controlled with: Pressure and Compression and gauze Patient tolerated procedure: Patient tolerated procedure well Post-Debridement Measurements and Additional Note: Post-Debridement Measurements/Treatment - Nurse 1 - General Ulcer Assessment Start: 08/19/21 11:09 Freq: Status: Active Protocol: [facility] Activity Type Activity Date Activity User E-Sign Co-Sign Detail Recorded Client Recorded Date Recorded By Document 08/19/21 11:09 CLAUS [id number] 08/19/21 11:14 CLAUS 08/19/21 11:09 - Today's Visit Information Type of service Follow-up Visit (Physician/[employer] ) Arrival Mode Wheelchair Patient Identification Verified (Name & Yes ) Vital Signs Temperature (97.8 F-99.1 F) 97.0 F L Temperature Source Temporal Respiratory Rate (12-18) 74 H Respiratory rate source Monitor Blood Pressure (90/60-120/80) 95/57 L Blood Pressure Mean (mm Hg) 69 Source Monitor Position Semi-Fowlers Blood Pressure Location Right Arm History Since Last Visit- (Skip if this is Patient's initial visit) Have you changed medications since your No last visit? Any new allergies or adverse reactions No Had a fall/change in ADL's that may No increase risk of falls Signs or symptoms of abuse and/or No neglect since last visit Have you been in the hospital since your No last visit? Has dressing in place as prescribed Yes Has compression in place as prescribed N/A Has offloadiing in place as prescribed N/A Experienced any changes in pain level or No management Left Footwear Regular Shoe Right Footwear Regular Shoe Pain Scale: 0-10 Numeric Is Patient Pain Free? Yes - Nurse 1 - General Ulcer Measurement Start: 08/19/21 11:09 Freq: Status: Active Protocol: Activity Type Activity Date Activity User E-Sign Co-Sign Detail Recorded Client Recorded Date Recorded By Document 08/19/21 11:09 CLAUS [id number] 08/19/21 11:14 CLAUS 08/19/21 11:09 Wound Center Nurse 1 #7- R ISCHIAL -Current Size (cm) - Length 7 -Current Size (cm) - Width 6 -Current Size (cm) - Depth 4.1 -Total Square Cm 42 -Exudate Amt Medium -Exudate Type Serosanguineous -Wound Margin Distinct, Outline Attached -Granulation Amt Large (67-100%) -Granulation Quality Red -Necrosis Amt Medium (34-66%) -Necrotic Tissue Type Adherent Slough -Texture (Annamaria-wound Skin Appearance) Assessed, Scarring -Moisture (Annamaria-wound Skin Appearance) No Abnormality, Assessed -Color (Annamaria-wound Skin Appearance) No Abnormality, Assessed -Temperature (Annamaria-wound Skin No Abnormality Appearance) (Pt Warm) -Tenderness on Palpation (Annamaria-wound No Skin Appearance) -Ulcer Cleansing Rinsed/ Irrigated with Saline #5 L Post Knee -Current Size (cm) - Length 3 -Current Size (cm) - Width 3 -Current Size (cm) - Depth 1.6 -Total Square Cm 9 -Wound Margin Distinct, Outline Attached -Granulation Amt Medium (34-66%) -Granulation Quality [place] -Necrosis Amt Small (1-33%) -Necrotic Tissue Type Adherent Slough -Texture (Annamaria-wound Skin Appearance) Assessed, Scarring -Moisture (Annamaria-wound Skin Appearance) No Abnormality, Assessed -Color (Annamaria-wound Skin Appearance) No Abnormality, Assessed -Temperature (Annamaria-wound Skin No Abnormality Appearance) (Pt Warm) -Tenderness on Palpation (Annamaria-wound No Skin Appearance) -Ulcer Cleansing Rinsed/ Irrigated with Saline #4 sacrum/L Ischial -Current Size (cm) - Length 17.5 -Current Size (cm) - Width 6 -Current Size (cm) - Depth 0.3 -Total Square Cm 105.0 -Wound Margin Distinct, Outline Attached -Structure Exposed Bone -Texture (Annamaria-wound Skin Appearance) Assessed, Scarring -Moisture (Annamaria-wound Skin Appearance) No Abnormality, Assessed -Color (Annamaria-wound Skin Appearance) No Abnormality, Assessed -Temperature (Annamaria-wound Skin No Abnormality Appearance) (Pt Warm) -Tenderness on Palpation (Annamaria-wound No Skin Appearance) -Ulcer Cleansing Rinsed/ Irrigated with Saline -Foul Odor after Cleansing No -Anesthetic Used 5% Lidocaine Gel WC - Nurse 2 - General Ulcer CM Notes Start: 08/19/21 11:09 Freq: Status: Active Protocol: Activity Type Activity Date Activity User E-Sign Co-Sign Detail Recorded Client Recorded Date Recorded By Document 08/19/21 11:36 ESTRELLA [id number] 08/19/21 11:46 ESTRELLA 08/19/21 11:36 Wound Center Nurse 2 #7- R ISCHIAL -Time 11:36 -Correct Patient Yes -Correct Side, Site, Position Yes -Correct Procedure Yes -Procedure Performed Yes -Type of Procedure Debridement -Clinical Debridement Muscle / Fascia -Tissue Removed Muscle -Post Debridement (cm) - Length 6.8 -Post Debridement (cm) - Width 5.5 -Post Debridement (cm) - Depth 4.0 -Total Square (Post) (cm) 37.40 -Area of Debridement (cm) - Length 6.8 -Area of Debridement (cm) - Width 5.5 -Total Square (Area) (cm) 37.40 -Tunneling No -Undermining/Tunneling No -Circular Undermining No -Wound/Ulcer Outcome Not Healed -Ulcer Cleansing Rinsed/ Irrigated with Saline -Foul Odor after Cleansing No -Bioengineered Tissue No -Bleeding Controlled with Pressure -Treatment Response Procedure Tolerated Well -Offloading No -Assistive Device(s) Wheelchair -Pressure Reduction Mattress overlay, Specialty bed -Debridement - Muscle / Fascia, 1st Yes 20sq cm -Debridement, Muscle/Fascia, ea addt'l 10 20sq cm or part thereof #5 L Post Knee -Time 11:36 -Correct Patient Yes -Correct Side, Site, Position Yes -Correct Procedure Yes -Procedure Performed Yes -Type of Procedure Debridement -Clinical Debridement Muscle / Fascia -Tissue Removed Muscle -Post Debridement (cm) - Length 1 -Post Debridement (cm) - Width 1 -Post Debridement (cm) - Depth 2.1 -Total Square (Post) (cm) 1 -Area of Debridement (cm) - Length 1 -Area of Debridement (cm) - Width 1 -Total Square (Area) (cm) 1 -Tunneling No -Undermining/Tunneling No -Circular Undermining No -Wound/Ulcer Outcome Not Healed -Ulcer Cleansing Rinsed/ Irrigated with Saline -Foul Odor after Cleansing No -Bioengineered Tissue No -Bleeding Controlled with Pressure -Treatment Response Procedure Tolerated Well -Offloading No -Debridement - Subq, 1st 20sq cm No -Debridement - Muscle / Fascia, 1st No 20sq cm #4 sacrum/L Ischial -Time 11:37 -Correct Patient Yes -Correct Side, Site, Position Yes -Correct Procedure Yes -Procedure Performed Yes -Type of Procedure Debridement -Clinical Debridement Muscle / Fascia -Tissue Removed Muscle -Post Debridement (cm) - Length 19.5 -Post Debridement (cm) - Width 9.0 -Post Debridement (cm) - Depth 1.5 -Total Square (Post) (cm) 175.50 -Area of Debridement (cm) - Length 19.5 -Area of Debridement (cm) - Width 9 -Total Square (Area) (cm) 175.5 -Tunneling No -Undermining/Tunneling No -Circular Undermining No -Wound/Ulcer Outcome Not Healed -Ulcer Cleansing Rinsed/ Irrigated with Saline -Foul Odor after Cleansing No -Bioengineered Tissue No -Bleeding Controlled with Pressure -Treatment Response Procedure Tolerated Well -Offloading No -Assistive Device(s) Wheelchair -Pressure Reduction Specialty bed -Debridement - Muscle / Fascia, 1st No 20sq cm Pain Scale: 0-10 Numeric Is Patient Pain Free? Yes WC - Nurse 3 - General Ulcer D/C NN Start: 08/19/21 11:09 Freq: Status: Active Protocol: Activity Type Activity Date Activity User E-Sign Co-Sign Detail Recorded Client Recorded Date Recorded By Document 08/19/21 11:52 CLAUS [id number] 08/19/21 11:54 KR 08/19/21 11:52 Wound Care Nurse 3 #7- R ISCHIAL -Other Dressing wet to dry -Primary Dressing Covered/Secured with Dry Gauze, Secured with Tape #5 L Post Knee -Other Dressing betadine soaked gauze packed -Primary Dressing Covered/Secured with Dry Gauze, Secured with Tape #4 sacrum/L Ischial -Ulcer Cleansing Rinsed/ Irrigated with Saline -Other Dressing wet to dry dressing -Primary Dressing Covered/Secured with Dry Gauze, Secured with Tape Pain Scale: 0-10 Numeric Is Patient Pain Free? Yes WC - Visit Discharge Discharge Condition Stable Ambulatory Status Wheelchair Transportation Private Auto Accompanied by Additional Wound Wound debrided: Ischial ulcer Laterality: Right Wound Grade/Stage: Stage IV Type of Debridement: Excisional debridement Anesthesia Used: 4% Lidocaine Solution Depth: Down to and including healthy tissue, in the subcutaneous layer and to muscle Percentage of wound debrided: 100 Instrument Used: 7mm curette Tissue Removed: Nonviable tissue and slough Severity: Fat Layer Exposed Amount of bleeding with debridement: Mild Bleeding Controlled with: Pressure and Compression and gauze Patient tolerated procedure: Patient tolerated procedure well Additional Wound Wound debrided: Posterior knee ulcer Laterality: Left Wound Grade/Stage: Stage IV Type of Debridement: Excisional debridement Anesthesia Used: 4% Lidocaine Solution Depth: Down to and including healthy tissue, in the subcutaneous layer and to muscle Percentage of wound debrided: 100 Instrument Used: 3mm curette Tissue Removed: Nonviable tissue and slough Severity: Fat Layer Exposed Amount of bleeding with debridement: Mild Bleeding Controlled with: Pressure and Compression and gauze Patient tolerated procedure: Patient tolerated procedure well Assessment/Plan Assessment/Plan (1) Pressure ulcer of left buttock, stage 4: CODE(S): L89.324 - Pressure ulcer of left buttock, stage 4 (2) Decubitus ulcer of right ischium, stage 4: CODE(S): L89.314 - Pressure ulcer of right buttock, stage 4 (3) Ulcer of left knee: CODE(S): L97.829 - Non-pressure chronic ulcer of other part of left lower leg with unspecified severity QUALIFIERS: Non-pressure ulcer stage: with fat layer exposed Qualified Code(s): L97.822 - Non-pressure chronic ulcer of other part of left lower leg with fat layer exposed (4) Osteomyelitis of pelvis: CODE(S): M86.9 - Osteomyelitis, unspecified (5) Paraplegia following spinal cord injury: CODE(S): G82.20 - Paraplegia, unspecified (6) Malignant neoplasm of unspecified kidney, except renal pelvis: CODE(S): C64.9 - Malignant neoplasm of unspecified kidney, except renal pelvis (7) Metastatic renal cell carcinoma to bone: CODE(S): C79.51 - Secondary malignant neoplasm of bone; C64.9 - Malignant neoplasm of unspecified kidney, except renal pelvis PLAN: Wound care - Wound care to the left buttock (sacral and left ischial ulcer combined) and the right ischial ulcer are Dakin's 0.25% moistened bandage rolls, such as kerilix covered with super absorber/ABD pads secured with tape daily and as needed. Iodoform gauze packed into the left posterior knee ulcer, cover with gauze daily. They are placing a barrier cream around all the ulcers to help with the periwound. Stressed the importance of off loading throughout the day. She states she should be getting her new electric wheelchair in the next couple weeks. She recently found out that her cancer is spreading up her spine and she is experiencing increased pain. Right ischial tissue culture from 04/10/21 positive for Aspergillus fumigatus. Left ischial ulcer positive for bari parapsilosis. Completed fluconazole. Follow up two weeks.
--- NOTE | 2021-09-02 13:11 | PN.PCM_ITS ---
History of Present Illness Date of Service: 09/02/21 Chief Complaint: Sacral pressure sore, Stage IV, and left ischial pressure sore, Stage IV. History of Wound: 56 year old female with a history of renal cancer and metastasis to the bone presented to [facility] with a sacral pressure sore and left ischial pressure sore. was admitted on 07/11/20 and discharged on 07/13/20 for sepsis related to an infected decubitus ulcer. She has been a paraplegic for 2.5 years after her back hardware broke. Her Oncologist is Dr. Valiente and she is on Cabometyx. She had a recent hospitalization from 06/01/21 - 06/07/21 for septic shock from UTI/sacral wound. Urine culture from 06/01/21 positive for yeast, not Bari albicans. Sacral wound culture 06/03/21 positive for Corynebacterium striatum and Enterococcus faecium. She was then discharged to an LTAC. She has been home for over a week. Surgery 04/10/21 for 1. Excision right ischial pressure ulcer, osteomyelitis. Stage IV, with partial ostectomy for osteomyelitis. 2. Excision sacral pressure ulcer, stage IV, with partial ostectomy for osteomyelitis. 3. Excision left ischial pressure ulcer, stage IV, with partial ostectomy for osteomyelitis. Pathology from 04/10/21 - Sacral tissue show focal ulceration, acute and chronic inflammation and granulation tissue reaction. Sacral bone show pieces of bone with acute and chronic osteomyelitis and reactive changes. Left ischial tissue show focal ulceration, acute and chronic inflammation, granulation tissue reaction and fat necrosis. Left ischial bone show pieces of bone with acute and chronic osteomyelitis and reactive changes. Right ischial tissue shows focal ulceration with acute and chronic inflammation and fat necrosis. Right ischial bone pieces of bone with acute and chronic osteomyelitis and reactive change. Operative cultures: Right ischial bone positive for Corynebacterium striatum, and Staphylococcus epidermidis. Right ischial tissue positive for Coag Negative Staph, Enterococcus faecalis and Corynebacterium striatum. Left ischial bone had no growth. Left ischial tissue positive for Bari parapsilosis and Staphylococcus epidermidis, Clostridium species and Anaerobic cocci. Sacral bone and tissue positive for Corynebacterium striatum. She was treated while hospitalized with IV Vancomycin and Zosyn. Upon discharge she has been taking Linezolid and Augmentin. Surgery on 09/19/20 for 1. Excision left ischial pressure sore, Stage IV, with partial ostectomy for osteomyelitis. 2. Excision sacral pressure sore, Stage IV. Discharged 09/26/20. Ulcer to left posterior knee caused by her urine leg bag rubbing against her skin. Her first noticed it as scab. Wound culture obtained 11/19/20 which was positive for Staphylococcus aureus and Corynebacterium striatum and is being treated with Augmentin. She obtained second degree ko on her anterior thighs bilaterally when placing a rice pack that was too hot, they have since healed. Wound care - Wound care to the left buttock (sacral and left ischial ulcer combined) and the right ischial ulcer are Dakin's 0.25% moistened bandage rolls, such as kerilix covered with super absorber/ABD pads secured with tape daily and as needed. Aquacel-Ag packed into the left posterior knee ulcer, cover with gauze daily. Wound culture of new right ischial ulcer from 04/02/21 done during a nurse visit was positive for Corynebacterium striatum and Enterococcus faecalis. She has not been treated for this at this time. She is being sent to the ED for further evaluation of this ulcer because of the need for possible operative debridement. Wound culture of sacral ulcer 01/07/21 positive for Corynebacterium striatum, Streptococcus mitis/oralis, Enterococcus faecalis, Anaerobic cocci, Actinomyces bovis, Bacteroides caccae, Bacteroides thetaiotaomicron. She was started on Clindamycin and Augmentin along with probiotic to treat the wound culture. Wound culture of left posterior knee 11/19/20 positive for Staphylococcus aureus and Corynebacterium striatum. She has been started on Augmentin. Operative wound cultures: Ischial pressure sore tissue positive for Staphylococcus aureus, Streptococcus group G, Streptococcus mitis/oralis, Anaerobic cocci and Bacteroides pyogenes. Ischial bone culture Staphylococcus aureus, Enterococcus faecalis, Streptococcue mitis/oralis , Anaerobic cocci, and Bacteroides pyogenes. Sacral tissue positive Staphylococcus aureus, Streptococcus mitis/oralis, Anaerobic cocci and Bacteroides pyogenes. Vancomycin IV had to be stopped due elevated liver enzymes. The other IV antibiotics that would be sensitive would cost the patient too much per week and patient doesn't want placed in a facility for IV antibiotics. She decided to start Augmentin po, which will not have as good bone coverage as an IV antibiotics would have. Wound culture was done on 07/24/20. The left ischial pressure sore was positive for Pseudomonas oryzihabitans and MRSE. The sacral pressure sore was positive for E.coli, Entercoccus faecalis, Methicillin resistant Staphylococcus haemolyticus. She was started Doxycycline, Cipro and Augmentin. She was hospitalized 12/27/20 - 01/01/21 for Septic shock and Acute complicated UTI which showed E. coli. She was treated with IV antibiotics while hospitalized and discharged home on Amoxicillin. She had been sitting in her wheelchair up to 12 hours a day while her is at work. They have someone come and help her out of bed in the morning and get her into her wheelchair. She has a new cushion on her wheelchair from the past several months. Today she denies fever, chills at this time but has had them on and off recently. Encourage nutritional supplementation with protein to help the healing process. Progress of Wound: The left ischial/buttock/sacral ulcer and the right ischial ulcer are beefy pink, bone is exposed in each ulcer and the ulcer is into the muscle. The annamaria wound is clear. The left posterior knee ulcer is slightly larger with a tunnel to the muscle and bone. Annamaria wound is stable. Objective Data Objective Data Vital Signs: Vital Signs Temp Pulse Resp BP 97.0 F L 96 74 H 95/57 L 08/19/21 11:09 08/07/21 00:52 08/19/21 11:09 08/19/21 11:09 Charges/Coding Procedures Integumentary 111xxx-113xx: [id number] Jerilyn musc/fascia 20 sq cm/< Add On Codes: 37356 Jerilyn subq tissue add-on (x10) Physical Exam Const alert and oriented x3 General Appearance: cooperative HEENT normocephalic Head and Scalp: atraumatic Resp normal respiratory effort Cardio regular rate Extremity normal capillary refill Skin Wound Narrative: Buttock ulcer (which encompasses the left ischial and sacral ulcers) is beefy pink, there is bone and muscle exposure. Right ischial ulcer is beefy pink with with bone and muscle exposure. Left posterior knee ulcer is slightly larger but tunnels into the muscle and the base there is bone. Annamaria wound of all the ulcers is clear. Neuro Speech: speech normal Psych Appearance: grossly normal and well kempt Debridement Note Debridement Note Wound debrided: Buttock (sacral and left ischial ulcer) Laterality: Left Wound Grade/Stage: Stage IV Type of Debridement: Excisional debridement Anesthesia Used: 4% Lidocaine Solution Depth: Down to and including healthy tissue, in the subcutaneous layer and to muscle Percentage of wound debrided: 100 Instrument Used: 7mm curette Tissue Removed: Nonviable tissue and slough Severity: Fat Layer Exposed Amount of bleeding with debridement: Mild Bleeding Controlled with: Pressure and Compression and gauze Patient tolerated procedure: Patient tolerated procedure well Post-Debridement Measurements and Additional Note: Post-Debridement Measurements/Treatment - Nurse 1 - General Ulcer Assessment Start: 08/19/21 11:09 Freq: Status: Active Protocol: [facility]A Activity Type Activity Date Activity User E-sign Co-sign Detail Recorded Client Recorded Date Recorded By Document 08/19/21 11:09 CLAUS [id number] 08/19/21 11:14 Document 09/02/21 11:15 CLAUS [id number] 09/02/21 11:24 KR 08/19/21 09/02/21 11:09 11:15 - Today's Visit Information Type of service Follow-up Visit Follow-up Visit (Physician/VICE PRESIDENT SUP[employer]AIN (Physician/VICE PRESIDENT [employer]PPLY CHAIN ) ) Arrival Mode Wheelchair Wheelchair Transfer Assistance Manual Patient Identification Verified (Name & Yes Yes ) Vital Signs Temperature (97.8 F-99.1 F) 97.0 F L Temperature Source Temporal Temporal Pulse Location Monitor Respiratory Rate (12-18) 74 H Respiratory rate source Monitor Blood Pressure (90/60-120/80) 95/57 L Blood Pressure Mean (mm Hg) 69 Source Monitor Manual Position Semi-Fowlers Sitting Blood Pressure Location Right Arm Left Arm History Since Last Visit- (Skip if this is Patient's initial visit) Have you changed medications since your No No last visit? Any new allergies or adverse reactions No No Had a fall/change in ADL's that may No No increase risk of falls Signs or symptoms of abuse and/or No No neglect since last visit Have you been in the hospital since your No No last visit? Has dressing in place as prescribed Yes Yes Has compression in place as prescribed N/A N/A Has offloadiing in place as prescribed N/A N/A Experienced any changes in pain level or No No management Left Footwear Regular Shoe Regular Shoe Right Footwear Regular Shoe Regular Shoe Pain Scale: 0-10 Numeric Is Patient Pain Free? Yes Yes WC - Nurse 1 - General Ulcer Measurement Start: 08/19/21 11:09 Freq: Status: Active Protocol: Activity Type Activity Date Activity User E-sign Co-sign Detail Recorded Client Recorded Date Recorded By Document 08/19/21 11:09 KR [id number] 08/19/21 11:14 KR Document 09/02/21 11:15 KR [id number] 09/02/21 11:24 KR 08/19/21 09/02/21 11:09 11:15 Wound Center Nurse 1 #7- R ISCHIAL -Current Size (cm) - Length 7 8 -Current Size (cm) - Width 6 7 -Current Size (cm) - Depth 4.1 2.8 -Total Square Cm 42 56 -Exudate Amt Medium -Exudate Type Serosanguineous -Wound Margin Distinct, Thickened & Outline Rolled Under Attached -Granulation Amt Large (67-100%) Large (67-100%) -Granulation Quality Red Red -Necrosis Amt Medium (34-66%) Large (67-100%) -Necrotic Tissue Type Adherent Slough Adherent Slough -Structure Exposed Bone -Texture (Annamaria-wound Skin Appearance) Assessed, Assessed, Scarring Scarring -Moisture (Annamaria-wound Skin Appearance) No Abnormality, No Abnormality, Assessed Assessed -Color (Annamaria-wound Skin Appearance) No Abnormality, No Abnormality, Assessed Assessed -Temperature (Annamaria-wound Skin No Abnormality No Abnormality Appearance) (Pt Warm) (Pt Warm) -Tenderness on Palpation (Annamaria-wound No No Skin Appearance) -Ulcer Cleansing Rinsed/ Rinsed/ Irrigated with Irrigated with Saline Saline -Foul Odor after Cleansing No -Anesthetic Used 4% Lidocaine Solution #5 L Post Knee -Current Size (cm) - Length 3 0.9 -Current Size (cm) - Width 3 0.7 -Current Size (cm) - Depth 1.6 2 -Total Square Cm 9 0.63 -Exudate Amt Medium -Exudate Type Serosanguineous -Wound Margin Distinct, Distinct, Outline Outline Attached Attached -Granulation Amt Medium (34-66%) Medium (34-66%) -Granulation Quality [place] -Necrosis Amt Small (1-33%) Medium (34-66%) -Necrotic Tissue Type Adherent Slough Adherent Slough -Structure Exposed Bone -Texture (Annamaria-wound Skin Appearance) Assessed, Assessed, Scarring Scarring -Moisture (Annamaria-wound Skin Appearance) No Abnormality, No Abnormality, Assessed Assessed -Color (Annamaria-wound Skin Appearance) No Abnormality, Assessed,Not Assessed Assessed -Temperature (Annamaria-wound Skin No Abnormality No Abnormality Appearance) (Pt Warm) (Pt Warm) -Tenderness on Palpation (Annamaria-wound No No Skin Appearance) -Ulcer Cleansing Rinsed/ Rinsed/ Irrigated with Irrigated with Saline Saline -Foul Odor after Cleansing No -Anesthetic Used 4% Lidocaine Solution #4 sacrum/L Ischial -Current Size (cm) - Length 17.5 22 -Current Size (cm) - Width 6 7.6 -Current Size (cm) - Depth 0.3 1.3 -Total Square Cm 105.0 167.2 -Exudate Amt Large -Exudate Type Serosanguineous -Wound Margin Distinct, Distinct, Outline Outline Attached Attached -Granulation Amt Large (67-100%) -Granulation Quality Red -Necrosis Amt Large (67-100%) -Necrotic Tissue Type Adherent Slough -Structure Exposed Bone Bone -Texture (Annamaria-wound Skin Appearance) Assessed, No Abnormality, Scarring Assessed -Moisture (Annamaria-wound Skin Appearance) No Abnormality, No Abnormality, Assessed Assessed -Color (Annamaria-wound Skin Appearance) No Abnormality, No Abnormality, Assessed Assessed -Temperature (Annamaria-wound Skin No Abnormality No Abnormality Appearance) (Pt Warm) (Pt Warm) -Tenderness on Palpation (Annamaria-wound No No Skin Appearance) -Ulcer Cleansing Rinsed/ Rinsed/ Irrigated with Irrigated with Saline Saline -Foul Odor after Cleansing No No -Anesthetic Used 5% Lidocaine 4% Lidocaine Gel Solution WC - Nurse 2 - General Ulcer CM Notes Start: 08/19/21 11:09 Freq: Status: Active Protocol: Activity Type Activity Date Activity User E-sign Co-sign Detail Recorded Client Recorded Date Recorded By Document 08/19/21 11:36 ESTRELLA [id number] 08/19/21 11:46 JF Document 09/02/21 12:35 PL [id number] 06/27/22 12:39 PL 08/19/21 09/02/21 11:36 12:35 Wound Center Nurse 2 #7- R ISCHIAL -Time 11:36 11:35 -Correct Patient Yes Yes -Correct Side, Site, Position Yes Yes -Correct Procedure Yes Yes -Procedure Performed Yes Yes -Type of Procedure Debridement Debridement -Clinical Debridement Muscle / Fascia Subcutaneous -Tissue Removed Muscle Subcutaneous -Post Debridement (cm) - Length 6.8 7.8 -Post Debridement (cm) - Width 5.5 7.0 -Post Debridement (cm) - Depth 4.0 2.4 -Total Square (Post) (cm) 37.40 54.60 -Area of Debridement (cm) - Length 6.8 7.8 -Area of Debridement (cm) - Width 5.5 7.0 -Total Square (Area) (cm) 37.40 54.60 -Tunneling No No -Undermining/Tunneling No No -Circular Undermining No -Wound/Ulcer Outcome Not Healed Not Healed -Ulcer Cleansing Rinsed/ Irrigated with Saline -Foul Odor after Cleansing No -Bioengineered Tissue No No -Bleeding Controlled with Pressure Pressure,Silver Nitrate -Treatment Response Procedure Procedure Tolerated Well Tolerated Well -Offloading No -Assistive Device(s) Wheelchair -Pressure Reduction Mattress overlay, Specialty bed -Debridement - Subq, 1st 20sq cm No -Debridement, SubQ, ea addt'l 20sq cm 2 or part thereof -Debridement - Muscle / Fascia, 1st Yes 20sq cm -Debridement, Muscle/Fascia, ea addt'l 10 20sq cm or part thereof #5 L Post Knee -Time 11:36 11:35 -Correct Patient Yes Yes -Correct Side, Site, Position Yes Yes -Correct Procedure Yes Yes -Procedure Performed Yes Yes -Type of Procedure Debridement Debridement -Clinical Debridement Muscle / Fascia Subcutaneous -Tissue Removed Muscle Subcutaneous -Post Debridement (cm) - Length 1 1.0 -Post Debridement (cm) - Width 1 1.3 -Post Debridement (cm) - Depth 2.1 1.5 -Total Square (Post) (cm) 1 1.30 -Area of Debridement (cm) - Length 1 1.0 -Area of Debridement (cm) - Width 1 1.3 -Total Square (Area) (cm) 1 1.30 -Tunneling No No -Undermining/Tunneling No No -Circular Undermining No No -Wound/Ulcer Outcome Not Healed Not Healed -Ulcer Cleansing Rinsed/ Rinsed/ Irrigated with Irrigated with Saline Saline -Foul Odor after Cleansing No No -Bioengineered Tissue No No -Bleeding Controlled with Pressure Pressure,Silver Nitrate -Treatment Response Procedure Procedure Tolerated Well Tolerated Well -Offloading No -Debridement - Subq, 1st 20sq cm No No -Debridement - Muscle / Fascia, 1st No 20sq cm #4 sacrum/L Ischial -Time 11:37 11:35 -Correct Patient Yes Yes -Correct Side, Site, Position Yes Yes -Correct Procedure Yes Yes -Procedure Performed Yes Yes -Type of Procedure Debridement Debridement -Clinical Debridement Muscle / Fascia Subcutaneous -Tissue Removed Muscle Subcutaneous -Post Debridement (cm) - Length 19.5 20.0 -Post Debridement (cm) - Width 9.0 8.0 -Post Debridement (cm) - Depth 1.5 3.8 -Total Square (Post) (cm) 175.50 160.00 -Area of Debridement (cm) - Length 19.5 20 -Area of Debridement (cm) - Width 9 8 -Total Square (Area) (cm) 175.5 160 -Tunneling No No -Undermining/Tunneling No No -Circular Undermining No No -Wound/Ulcer Outcome Not Healed Not Healed -Ulcer Cleansing Rinsed/ Rinsed/ Irrigated with Irrigated with Saline Saline -Foul Odor after Cleansing No No -Bioengineered Tissue No No -Bleeding Controlled with Pressure Pressure -Treatment Response Procedure Procedure Tolerated Well Tolerated Well -Offloading No -Assistive Device(s) Wheelchair -Pressure Reduction Specialty bed -Debridement - Subq, 1st 20sq cm Yes -Debridement, SubQ, ea addt'l 20sq cm 8 or part thereof -Debridement - Muscle / Fascia, 1st No 20sq cm Pain Scale: 0-10 Numeric Is Patient Pain Free? Yes Yes WC - Nurse 3 - General Ulcer D/C NN Start: 08/19/21 11:09 Freq: Status: Active Protocol: Activity Type Activity Date Activity User E-sign Co-sign Detail Recorded Client Recorded Date Recorded By Document 08/19/21 11:52 CLAUS [id number] 08/19/21 11:54 CLAUS 08/19/21 11:52 Wound Care Nurse 3 #7- R ISCHIAL -Other Dressing wet to dry -Primary Dressing Covered/Secured with Dry Gauze, Secured with Tape #5 L Post Knee -Other Dressing betadine soaked gauze packed -Primary Dressing Covered/Secured with Dry Gauze, Secured with Tape #4 sacrum/L Ischial -Ulcer Cleansing Rinsed/ Irrigated with Saline -Other Dressing wet to dry dressing -Primary Dressing Covered/Secured with Dry Gauze, Secured with Tape Pain Scale: 0-10 Numeric Is Patient Pain Free? Yes WC - Visit Discharge Discharge Condition Stable Ambulatory Status Wheelchair Transportation Private Auto Accompanied by Additional Wound Wound debrided: Ischial ulcer Laterality: Right Wound Grade/Stage: Stage IV Type of Debridement: Excisional debridement Anesthesia Used: 4% Lidocaine Solution Depth: Down to and including healthy tissue, in the subcutaneous layer and to muscle Percentage of wound debrided: 100 Instrument Used: 7mm curette Tissue Removed: Nonviable tissue and slough Severity: Fat Layer Exposed Amount of bleeding with debridement: Mild Bleeding Controlled with: Pressure and Compression and gauze Patient tolerated procedure: Patient tolerated procedure well Additional Wound Wound debrided: Posterior knee ulcer Laterality: Left Wound Grade/Stage: Stage IV Type of Debridement: Excisional debridement Anesthesia Used: 4% Lidocaine Solution Depth: Down to and including healthy tissue, in the subcutaneous layer and to muscle Percentage of wound debrided: 100 Instrument Used: 3mm curette Tissue Removed: Nonviable tissue and slough Severity: Fat Layer Exposed Amount of bleeding with debridement: Mild Bleeding Controlled with: Pressure and Compression and gauze Patient tolerated procedure: Patient tolerated procedure well Assessment/Plan Assessment/Plan (1) Pressure ulcer of left buttock, stage 4: CODE(S): L89.324 - Pressure ulcer of left buttock, stage 4 (2) Decubitus ulcer of right ischium, stage 4: CODE(S): L89.314 - Pressure ulcer of right buttock, stage 4 (3) Ulcer of left knee: CODE(S): L97.829 - Non-pressure chronic ulcer of other part of left lower leg with unspecified severity QUALIFIERS: Non-pressure ulcer stage: with fat layer exposed Qualified Code(s): L97.822 - Non-pressure chronic ulcer of other part of left lower leg with fat layer exposed (4) Osteomyelitis of pelvis: CODE(S): M86.9 - Osteomyelitis, unspecified (5) Paraplegia following spinal cord injury: CODE(S): G82.20 - Paraplegia, unspecified (6) Malignant neoplasm of unspecified kidney, except renal pelvis: CODE(S): C64.9 - Malignant neoplasm of unspecified kidney, except renal pelvis (7) Metastatic renal cell carcinoma to bone: CODE(S): C79.51 - Secondary malignant neoplasm of bone; C64.9 - Malignant neoplasm of unspecified kidney, except renal pelvis PLAN: Plan Wound care - Wound care to the left buttock (sacral and left ischial ulcer combined) and the right ischial ulcer are Dakin's 0.25% moistened bandage rolls, such as kerilex covered with super absorber/ABD pads secured with tape daily and as needed. Aquacel-Ag packed into the left posterior knee ulcer, cover with gauze daily. They are placing a barrier cream around all the ulcers to help with the periwound. Stressed the importance of off loading throughout the day. She states she should be getting her new electric wheelchair in the next couple weeks. She recently found out that her cancer is spreading up her spine and she is experiencing increased pain. She has been placed on a new chemo pill that is making her feel fatigued. Right ischial tissue culture from 04/10/21 positive for Aspergillus fumigatus. Left ischial ulcer positive for bari parapsilosis. Completed fluconazole. Follow up two weeks.
== END 2021-09-05 23:59 | disposition home or self-care (01) ==
LOC: WC 11:00
PROVIDERS: PCP Family Medicine; Visit Provider Nurse Practitioner Family
DX: L89.324 Pressure ulcer of left buttock, stage 4 (principal); C79.51 Secondary malignant neoplasm of bone; L89.314 Pressure ulcer of right buttock, stage 4; G82.20 Paraplegia, unspecified; L97.822 Non-pressure chronic ulcer of other part of left lower leg with fat layer exposed; M86.9 Osteomyelitis, unspecified; C64.9 Malignant neoplasm of unspecified kidney, except renal pelvis; R74.8 Abnormal levels of other serum enzymes
CPT/HCPCS: 11042; 11043; 11045; 11046